=== PATIENT | male | born 1970 | race Caucasian/White ===

== ENCOUNTER 2017-01-10 21:49 | Emergency (ER) | payer MEDICARE, OTHER ==
--- NOTE | 2017-01-10 22:17 | ED ---
General Adult HPI - General Chief complaint: Extremity Injury, Upper Stated complaint: Rib injury Time Seen by Provider: 01/10/17 22:08 Source: patient, RN notes reviewed Mode of arrival: ambulatory Limitations: no limitations - History of Present Illness Initial comments: Patient is a 46-year-old male who presents emergency room today with chief complaint of an injury to the left rib that occurred earlier tonight. Patient does admit that he was leaning over the couch trying to pick something up when he felt a grinding sensation to the left lateral anterior rib. States does have some pain locally to this area now it's worse with certain movements. He denies any other complaints or symptoms. Patient denies any recent fever, chills , shortness of breath, chest pain, back pain, abdominal pain, nausea or vomiting , numbness or tingling, dysuria or hematuria, constipation or diarrhea, headaches or visual changes, or any other complaints. - Related Data Home Medications Medication Instructions Recorded Confirmed Fenofibrate Nanocrystallized 145 mg PO HS 06/06/14 01/10/17 [Fenofibrate] Lisinopril [Zestril] 10 mg PO QAM 06/06/14 01/10/17 Omeprazole [PriLOSEC] 20 mg PO AC-BID 06/06/14 01/10/17 Pramipexole [Mirapex] 0.5 mg PO HS 06/06/14 01/10/17 Zolpidem Tartrate [Ambien] 10 mg PO HS 06/06/14 01/10/17 Insulin Glargine [Lantus] 110 unit SQ HS 12/17/14 01/10/17 risperiDONE [risperiDONE] 6 mg PO HS 12/17/14 01/10/17 INSULIN LISPRO (HumaLOG) [HumaLOG] See Protocol SQ AC-TID 08/16/15 01/10/17 Albuterol Inhaler [Ventolin Hfa 2 puff INHALATION RT-QID PRN 01/10/17 01/10/17 Inhaler] Divalproex Sodium [Depakote] 500 mg PO TID 01/10/17 01/10/17 Fluticasone Nasal [place] [Flonase 1 spray EA NOSTRIL DAILY PRN 01/10/17 01/10/17 Nasal [place]] Oxybutynin Chloride [Ditropan] 5 mg PO BID 01/10/17 01/10/17 traMADol HCL [Ultram] 50 mg PO Q6HR PRN 01/10/17 01/10/17 Previous Rx's Medication Instructions Recorded Ibuprofen [Motrin] 600 mg PO Q6HR PRN #20 day 01/10/17 Allergies Allergy/AdvReac Type Severity Reaction Status Date / Time Penicillins Allergy Unknown Verified 01/10/17 22:57 Childhood clozapine [From Clozaril] AdvReac Severe Aggression Verified 01/10/17 22:57 Review of Systems ROS Statement: Those systems with pertinent positive or pertinent negative responses have been documented in the HPI. ROS Other: All systems not noted in ROS Statement are negative. Past Medical History Past Medical History: Asthma, Diabetes Mellitus, Hypertension, Osteoarthritis ( OA), Seizure Disorder, Sleep Apnea/CPAP/BIPAP Additional Past Medical History / Comment(s): LAST SEIZURE 28 YRS AGO. chronic back pain. DOES NOT USE CPAP. SPINAL STENOSIS History of Any Multi-Drug Resistant Organisms: None Reported Past Surgical History: Cholecystectomy, Heart Catheterization, Tonsillectomy Additional Past Surgical History / Comment(s): PAIN PROCEDURES. Past Anesthesia/Blood Transfusion Reactions: No Reported Reaction Past Psychological History: ADD/ADHD, Schizophrenia Additional Psychological History / Comment(s): Pt lives with a roomate. He states he is independent. Smoking Status: Current every day smoker Past Alcohol Use History: None Reported Additional Past Alcohol Use History / Comment(s): Pt states he started smoking at age 28 and smokes a pack a day. Past Drug Use History: None Reported - Past Family History Father Family Medical History: Unable to Obtain Additional Family Medical History / Comment(s): Father left home when pt was 5 yrs old. Mother Family Medical History: Myocardial Infarction ([place]) Additional Family Medical History / Comment(s): Mother at age 55yrs of [place]. General Exam - General Exam Comments Initial Comments: General: The patient is awake and alert, in no distress, and does not appear acutely ill. Eye: Pupils are equal, round and reactive to light, extra-ocular movements are intact. No nystagmus. There is normal conjunctiva bilaterally. No signs of icterus. Ears, nose, mouth and throat: There are moist mucous membranes and no oral lesions. Neck: The neck is supple, there is no tenderness or JVD. Cardiovascular: There is a regular rate and rhythm. No murmur, rub or gallop is appreciated. Respiratory: Lungs are clear to auscultation, respirations are non-labored, breath sounds are equal. No wheezes, stridor, rales, or rhonchi. Musculoskeletal: Normal ROM. patient does have tenderness to the left anterior lateral lower ribs. No sign of deformity. Strength 5/5. Sensation intact. Pulses equal bilaterally 2+. Neurological: A&O x 3. CN II-XII intact, There are no obvious motor or sensory deficits. Coordination appears grossly intact. Speech is normal. Skin: Skin is warm and dry and no rashes or lesions are noted. Psychiatric: Cooperative, appropriate mood & affect, normal judgment. Limitations: no limitations Course Vital Signs 01/10/17 22:00 Temperature 98 F Pulse Rate 78 Respiratory 18 Rate Blood Pressure 159/75 O2 Sat by Pulse 98 Oximetry Medical Decision Making - Medical Decision Making X-rays reviewed and are negative for any abnormality. Results were discussed with patient. He'll be started on anti-inflammatories for pain. Disposition Clinical Impression: Muscle strain Disposition: HOME SELF-CARE Condition: Good Instructions: Muscle Strain (ED) Additional Instructions: Please use medication as discussed. Please follow-up with family doctor in the next 2 days of symptoms have not improved. Please return to emergency room if the symptoms increase or worsen or for any other concerns. Prescriptions: Ibuprofen [Motrin] 600 mg PO Q6HR PRN #20 day PRN Reason: Pain Referrals: Brandon Mcpherson MD [Primary Care Provider] - 1-2 days Time of Disposition: 23:22
--- NOTE | 2017-01-10 22:50 | XR ---
EXAM: XR Chest, 2 Views CLINICAL HISTORY: Reason: Left side rib pain TECHNIQUE: Frontal and lateral views of the chest. COMPARISON: 12/17/14 FINDINGS: Cardiac and mediastinal silhouette within normal limits. No pneumothorax, edema, consolidation, pleural effusion or other acute cardiopulmonary process. IMPRESSION: No acute cardiopulmonary findings.
[2017-01-10] MEDS ORDERED: IBUPROFEN 600 MG STARTER PACK 4 TAB BTL PO STA (23:21)
[2017-01-10 23:47] VITALS: BP 148/68; PULSE 68; RESP 16; TEMP 97.8
== END 2017-01-10 23:40 | disposition home or self-care (01) ==
LOC: EC 21:49
DX: S29.011A Strain of muscle and tendon of front wall of thorax, initial encounter (principal); I10 Essential (primary) hypertension; E11.9 Type 2 diabetes mellitus without complications; F20.9 Schizophrenia, unspecified; G40.909 Epilepsy, unspecified, not intractable, without status epilepticus; F17.200 Nicotine dependence, unspecified, uncomplicated; Z79.4 Long term (current) use of insulin; Z79.899 Other long term (current) drug therapy; Z88.0 Allergy status to penicillin; Z88.8 Allergy status to other drugs, medicaments and biological substances; Z86.69 Personal history of other diseases of the nervous system and sense organs; X50.1XXA Overexertion from prolonged static or awkward postures, initial encounter; Y93.89 Activity, other specified
CPT/HCPCS: 71020; 99283

== ENCOUNTER 2017-01-20 22:46 | Emergency (ER) | payer MEDICARE, OTHER ==
[2017-01-20 22:52] VITALS: BP 160/77; PULSE 88; TEMP 100.2
[2017-01-20 23:07] VITALS: RESP 18
--- NOTE | 2017-01-20 23:11 | ED ---
General Adult HPI - General Chief complaint: Shortness of Breath Stated complaint: SOB Time Seen by Provider: 01/20/17 22:58 Source: patient, RN notes reviewed Mode of arrival: ambulatory Limitations: no limitations - History of Present Illness Initial comments: 46-year-old male presents emergency Department chief complaint of left rib pain. Patient states that 10 days ago he was leaning over his couch to grab a large sugar off the ground in which he injured his rib. Patient states he was seen in emergency from had a chest x-ray which did not show any acute abnormality. He states he continues to have pain and states it's worse when he takes a deep inspiration. Patient states that it's like cough now felt that he had a fever at home. Patient states cough is nonproductive. Patient does get occasional shortness of breath is not exertional. Denies any sinus congestion, sore throat, abdominal pain including nausea, vomiting, diarrhea. Patient states he is not taking any for the pain at this time. He does admit to taking shallow breaths because of the pain. - Related Data Home Medications Medication Instructions Recorded Confirmed Fenofibrate Nanocrystallized 145 mg PO HS 06/06/14 01/20/17 [Fenofibrate] Lisinopril [Zestril] 10 mg PO QAM 06/06/14 01/20/17 Omeprazole [PriLOSEC] 20 mg PO AC-BID 06/06/14 01/20/17 Pramipexole [Mirapex] 0.5 mg PO HS 06/06/14 01/20/17 Zolpidem Tartrate [Ambien] 10 mg PO HS 06/06/14 01/20/17 Insulin Glargine [Lantus] 110 unit SQ HS 12/17/14 01/20/17 risperiDONE [risperiDONE] 6 mg PO HS 12/17/14 01/20/17 INSULIN LISPRO (HumaLOG) [HumaLOG] See Protocol SQ AC-TID 08/16/15 01/20/17 Albuterol Inhaler [Ventolin Hfa 2 puff INHALATION RT-QID PRN 01/10/17 01/20/17 Inhaler] Divalproex Sodium [Depakote] 500 mg PO TID 01/10/17 01/20/17 Fluticasone Nasal [place] [Flonase 1 spray EA NOSTRIL DAILY PRN 01/10/17 01/20/17 Nasal [place]] Oxybutynin Chloride [Ditropan] 5 mg PO BID 01/10/17 01/20/17 traMADol HCL [Ultram] 50 mg PO Q6HR PRN 01/10/17 01/20/17 Previous Rx's Medication Instructions Recorded Ibuprofen [Motrin] 600 mg PO Q6HR PRN #20 day 01/10/17 Azithromycin [Zithromax Z-pack] 0 mg PO DIRECTED #1 pack 01/20/17 Allergies Allergy/AdvReac Type Severity Reaction Status Date / Time Penicillins Allergy Unknown Verified 01/20/17 22:52 Childhood clozapine [From Clozaril] AdvReac Severe Aggression Verified 01/20/17 22:52 Review of Systems ROS Statement: Those systems with pertinent positive or pertinent negative responses have been documented in the HPI. ROS Other: All systems not noted in ROS Statement are negative. Past Medical History Past Medical History: Asthma, Diabetes Mellitus, Hypertension, Osteoarthritis ( OA), Seizure Disorder, Sleep Apnea/CPAP/BIPAP Additional Past Medical History / Comment(s): LAST SEIZURE 28 YRS AGO. chronic back pain. DOES NOT USE CPAP. SPINAL STENOSIS History of Any Multi-Drug Resistant Organisms: None Reported Past Surgical History: Cholecystectomy, Heart Catheterization, Tonsillectomy Additional Past Surgical History / Comment(s): PAIN PROCEDURES. Past Anesthesia/Blood Transfusion Reactions: No Reported Reaction Past Psychological History: ADD/ADHD, Schizophrenia Additional Psychological History / Comment(s): Pt lives with a roomate. He states he is independent. Smoking Status: Current every day smoker Past Alcohol Use History: None Reported Additional Past Alcohol Use History / Comment(s): Pt states he started smoking at age 28 and smokes a pack a day. Past Drug Use History: None Reported - Past Family History Father Family Medical History: Unable to Obtain Additional Family Medical History / Comment(s): Father left home when pt was 5 yrs old. Mother Family Medical History: Myocardial Infarction ([place]) Additional Family Medical History / Comment(s): Mother at age 55yrs of [place]. General Exam Limitations: no limitations General appearance: alert, in no apparent distress Head exam: Present: atraumatic, normocephalic, normal inspection Eye exam: Present: normal appearance, PERRL, EOMI. Absent: scleral icterus, conjunctival injection, periorbital swelling ENT exam: Present: normal exam, mucous membranes moist Neck exam: Present: normal inspection. Absent: tenderness, meningismus, lymphadenopathy Respiratory exam: Present: normal lung sounds bilaterally, chest wall tenderness (Moderate left anterior to lateral rib tenderness). Absent: respiratory distress, wheezes, rales, rhonchi, stridor Cardiovascular Exam: Present: regular rate, normal rhythm, normal heart sounds. Absent: systolic murmur, diastolic murmur, rubs, gallop, clicks GI/Abdominal exam: Present: soft, normal bowel sounds. Absent: distended, tenderness, guarding, rebound, rigid Back exam: Absent: CVA tenderness (R), CVA tenderness (L) Neurological exam: Present: alert, oriented X3, CN II-XII intact Course Vital Signs 01/20/17 01/20/17 22:48 23:05 Temperature 100.2 F H Pulse Rate 88 Respiratory 16 18 Rate Blood Pressure 160/77 O2 Sat by Pulse 96 Oximetry Medical Decision Making - Medical Decision Making 46-year-old male presented for left rib pain, cough congestion. Patient's x- ray chest with rib series does not show any acute fractures. Patient does have some upper respiratory symptoms consistent with bronchitis. Patient has a temperature 100.2 here. Patient be discharged with follow-up with primary care physician return parameters were discussed. - Radiology Data Radiology results: report reviewed, image reviewed Chest x-ray is, rib series no acute fracture noted Disposition Clinical Impression: Costochondritis, Rib pain on left side, Acute bronchitis Disposition: HOME SELF-CARE Condition: Stable Instructions: Acute Bronchitis (ED), Costochondritis (ED) Additional Instructions: Please return to the Emergency Department if symptoms worsen or any other concerns. Prescriptions: Azithromycin [Zithromax Z-pack] 0 mg PO DIRECTED #1 pack Referrals: Brandon Mcpherson MD [Primary Care Provider] - 1-2 days
--- NOTE | 2017-01-20 23:28 | XR ---
EXAM: XR Left Ribs and AP Chest, 5 Views CLINICAL HISTORY: Pain. Left-sided rib pain after leaning over couch. TECHNIQUE: Frontal and oblique views of the left ribs and frontal view of the chest. A total of 5 images were obtained. COMPARISON: CXR dated 01/10/2017 FINDINGS: Lungs: No focal consolidation. No evidence of pulmonary edema. Pleural space: No pleural effusion. No pneumothorax. Heart: Unremarkable. No cardiomegaly. Mediastinum: Unremarkable. Bones/joints: No acute fracture. Specifically, no evidence of left- sided rib fracture. IMPRESSION: No radiographic evidence of left rib fracture or other acute chest abnormality.
== END 2017-01-20 23:45 | disposition home or self-care (01) ==
LOC: EC 22:46
DX: M94.0 Chondrocostal junction syndrome [Tietze] (principal); J20.9 Acute bronchitis, unspecified; J45.909 Unspecified asthma, uncomplicated; E11.9 Type 2 diabetes mellitus without complications; I10 Essential (primary) hypertension; M19.90 Unspecified osteoarthritis, unspecified site; G40.909 Epilepsy, unspecified, not intractable, without status epilepticus; F20.9 Schizophrenia, unspecified; F90.9 Attention-deficit hyperactivity disorder, unspecified type; F17.200 Nicotine dependence, unspecified, uncomplicated; Z82.49 Family history of ischemic heart disease and other diseases of the circulatory system; Z79.51 Long term (current) use of inhaled steroids; Z79.4 Long term (current) use of insulin; Z79.899 Other long term (current) drug therapy; Z88.0 Allergy status to penicillin; Z88.8 Allergy status to other drugs, medicaments and biological substances
CPT/HCPCS: 99284

== ENCOUNTER 2017-02-05 04:44 | Emergency (ER) | payer MEDICARE, OTHER ==
--- NOTE | 2017-02-05 05:31 | ED ---
General Adult HPI - General Chief complaint: Back Pain/Injury Stated complaint: Abdominal Pain Time Seen by Provider: 02/05/17 05:04 Source: patient Mode of arrival: ambulatory Limitations: no limitations - History of Present Illness Initial comments: This patient is a 46-year-old man who presents to be reevaluated for pain to his left ribs. Came on oxygen only a month ago. 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 The patient states that although things haven't improved she still continues have pain when he presses on that side or if he coughs. He states that he did come here and was told the x-rays were initially negative. Patient has not had fevers or chills. No cough or hemoptysis. No dyspnea. No leg pain or swelling. Onset/Timin -: month(s) Location: chest Radiation: non-radiation Severity scale (1-10): 5 Quality: aching Consistency: constant Improves with: none Worsens with: movement Associated Symptoms: denies other symptoms Treatments Prior to Arrival: none - Related Data Home Medications Medication Instructions Recorded Confirmed Fenofibrate Nanocrystallized 145 mg PO HS 06/06/14 02/05/17 [Fenofibrate] Lisinopril [Zestril] 10 mg PO QAM 06/06/14 02/05/17 Omeprazole [PriLOSEC] 20 mg PO AC-BID 06/06/14 02/05/17 Pramipexole [Mirapex] 0.5 mg PO HS 06/06/14 02/05/17 Zolpidem Tartrate [Ambien] 10 mg PO HS 06/06/14 02/05/17 Insulin Glargine [Lantus] 110 unit SQ HS 12/17/14 02/05/17 risperiDONE [risperiDONE] 6 mg PO HS 12/17/14 02/05/17 INSULIN LISPRO (HumaLOG) [HumaLOG] See Protocol SQ AC-TID 08/16/15 02/05/17 Albuterol Inhaler [Ventolin Hfa 2 puff INHALATION RT-QID PRN 01/10/17 02/05/17 Inhaler] Divalproex Sodium [Depakote] 500 mg PO TID 01/10/17 02/05/17 Fluticasone Nasal [place] [Flonase 1 spray EA NOSTRIL DAILY PRN 01/10/17 02/05/17 Nasal [place]] Oxybutynin Chloride [Ditropan] 5 mg PO BID 01/10/17 02/05/17 traMADol HCL [Ultram] 50 mg PO Q6HR PRN 01/10/17 02/05/17 Previous Rx's Medication Instructions Recorded Ibuprofen [Motrin] 600 mg PO Q6HR PRN #20 day 01/10/17 Azithromycin [Zithromax Z-pack] 0 mg PO DIRECTED #1 pack 01/20/17 traMADol HCl [Ultram] 50 mg PO Q6H PRN #20 tab 02/05/17 Allergies Allergy/AdvReac Type Severity Reaction Status Date / Time Penicillins Allergy Unknown Verified 02/05/17 04:54 Childhood clozapine [From Clozaril] AdvReac Severe Aggression Verified 02/05/17 04:54 Review of Systems ROS Statement: Those systems with pertinent positive or pertinent negative responses have been documented in the HPI. ROS Other: All systems not noted in ROS Statement are negative. Constitutional: Denies: fever, chills Respiratory: Denies: cough, dyspnea, wheezes, hemoptysis Cardiovascular: Reports: as per HPI, chest pain. Denies: palpitations, edema Gastrointestinal: Denies: abdominal pain, nausea, vomiting Genitourinary: Denies: dysuria, hematuria Musculoskeletal: Denies: back pain Skin: Denies: rash Past Medical History Past Medical History: Asthma, Diabetes Mellitus, Hypertension, Osteoarthritis ( OA), Seizure Disorder, Sleep Apnea/CPAP/BIPAP Additional Past Medical History / Comment(s): LAST SEIZURE 28 YRS AGO. chronic back pain. DOES NOT USE CPAP. SPINAL STENOSIS History of Any Multi-Drug Resistant Organisms: None Reported Past Surgical History: Cholecystectomy, Heart Catheterization, Tonsillectomy Additional Past Surgical History / Comment(s): PAIN PROCEDURES. Past Anesthesia/Blood Transfusion Reactions: No Reported Reaction Past Psychological History: ADD/ADHD, Schizophrenia Additional Psychological History / Comment(s): Pt lives with a roomate. He states he is independent. Smoking Status: Current every day smoker Past Alcohol Use History: None Reported Additional Past Alcohol Use History / Comment(s): Pt states he started smoking at age 28 and smokes a pack a day. Past Drug Use History: None Reported - Past Family History Father Family Medical History: Unable to Obtain Additional Family Medical History / Comment(s): Father left home when pt was 5 yrs old. Mother Family Medical History: Myocardial Infarction ([place]) Additional Family Medical History / Comment(s): Mother at age 55yrs of [place]. General Exam Limitations: no limitations General appearance: alert, in no apparent distress, obese Head exam: Present: atraumatic, normocephalic Respiratory exam: Present: normal lung sounds bilaterally, chest wall tenderness. Absent: respiratory distress, wheezes, rales, rhonchi, stridor Cardiovascular Exam: Present: regular rate, normal rhythm, normal heart sounds. Absent: systolic murmur, diastolic murmur, rubs, gallop GI/Abdominal exam: Present: soft. Absent: distended, tenderness, guarding, rebound, mass Extremities exam: Present: normal inspection, normal capillary refill. Absent: pedal edema, calf tenderness Back exam: Present: normal inspection. Absent: CVA tenderness (R), CVA tenderness (L), paraspinal tenderness, vertebral tenderness Skin exam: Present: warm, dry, intact, normal color. Absent: rash Course Vital Signs 02/05/17 04:50 Temperature 97.6 F Pulse Rate 98 Respiratory 20 Rate Blood Pressure 132/71 O2 Sat by Pulse 97 Oximetry Disposition Clinical Impression: Chest wall pain Disposition: HOME SELF-CARE Condition: Fair Instructions: Chest Wall Pain (ED) Prescriptions: traMADol HCl [Ultram] 50 mg PO Q6H PRN #20 tab PRN Reason: Pain Referrals: Brandon Mcpherson MD [Primary Care Provider] - 1-2 days
--- NOTE | 2017-02-05 06:02 | XR ---
EXAM: XR Left Ribs and AP Chest, 3 or More Views CLINICAL HISTORY: Reason: Pain TECHNIQUE: Frontal and oblique views of the left ribs and frontal view of the chest. COMPARISON: Chest and left rib series 01/20/2017 FINDINGS: Lungs: Lungs are clear. Pleural space: No evidence of pleural effusion or pneumothorax. Heart: PA chest: Heart size and mediastinal structures are within normal limits. Mediastinum: Unremarkable. Bones/joints: Left rib series: No definite rib fracture identified. No osteolytic, osteoblastic or bony destructive rib lesions identified. IMPRESSION: No evidence of left rib fracture. No evidence of acute cardiopulmonary disease.
[2017-02-05 06:34] VITALS: BP 127/62; PULSE 83; RESP 18; TEMP 97.9
== END 2017-02-05 06:34 | disposition home or self-care (01) ==
LOC: EC 04:44
DX: R07.89 Other chest pain (principal); E11.9 Type 2 diabetes mellitus without complications; I10 Essential (primary) hypertension; F17.200 Nicotine dependence, unspecified, uncomplicated; Z90.49 Acquired absence of other specified parts of digestive tract; Z88.0 Allergy status to penicillin; Z88.8 Allergy status to other drugs, medicaments and biological substances; Z79.4 Long term (current) use of insulin; Z79.899 Other long term (current) drug therapy
CPT/HCPCS: 99284

== ENCOUNTER → 2017-04-05 | Outpatient (CLI) | payer MEDICARE, OTHER ==
--- NOTE | 2017-04-06 06:43 | XR ---
EXAMINATION TYPE: XR abdomen 1V , 3 VIEWS DATE OF EXAM ORDERED: 04/05/2017 HISTORY: R19.7 diarrhea. COMPARISON: Previous study dated 06/26/2015. FINDINGS: There has been a previous cholecystectomy. The abdominal gas pattern is normal. There is no evidence of obstruction or free air. No unusual calc ifications are seen. IMPRESSION: NO ACUTE INTRA-ABDOMINAL ABNORMALITY.
== END | disposition home or self-care (01) ==
LOC: RADXRMAIN 16:06
PROVIDERS: ATTEND Physician Assistant
DX: R19.7 Diarrhea, unspecified (principal)
CPT/HCPCS: 74000

== ENCOUNTER 2017-04-21 10:52 | Emergency (ER) | payer MEDICARE, OTHER ==
[2017-04-21 11:00] VITALS: BP 166/77; PULSE 95; RESP 18; TEMP 98.3
[2017-04-21] MEDS ORDERED: PROPARACAINE 0.5% OPHTH DROPS 15 ML BTL RIGHT EYE STA (11:05)
[2017-04-21] MEDS ORDERED: TOBRAMYCIN 0.3% OPHTH DROPS 5 ML BTL RIGHT EYE STA (11:12)
--- NOTE | 2017-04-21 11:16 | ED ---
General Adult HPI - General Chief complaint: Eye Problems Stated complaint: FB IN RT EYE Time Seen by Provider: 04/21/17 11:02 Source: patient, RN notes reviewed Mode of arrival: ambulatory Limitations: no limitations - History of Present Illness Initial comments: Patient 46-year-old male who presents emergency room today with a chief complaint of foreign body sensation to the right eye. He states he woke up this morning with this feeling. Denies any injury or trauma. Denies any other complaints. States his vision has not changed. Patient denies any recent fever , chills, shortness of breath, chest pain, back pain, abdominal pain, nausea or vomiting, numbness or tingling, dysuria or hematuria, constipation or diarrhea, headaches or visual changes, or any other complaints. - Related Data Home Medications Medication Instructions Recorded Confirmed Fenofibrate Nanocrystallized 145 mg PO HS 06/06/14 02/05/17 [Fenofibrate] Lisinopril [Zestril] 10 mg PO QAM 06/06/14 02/05/17 Omeprazole [PriLOSEC] 20 mg PO AC-BID 06/06/14 02/05/17 Pramipexole [Mirapex] 0.5 mg PO HS 06/06/14 02/05/17 Zolpidem Tartrate [Ambien] 10 mg PO HS 06/06/14 02/05/17 Insulin Glargine [Lantus] 110 unit SQ HS 12/17/14 02/05/17 risperiDONE [risperiDONE] 6 mg PO HS 12/17/14 02/05/17 INSULIN LISPRO (HumaLOG) [HumaLOG] See Protocol SQ AC-TID 08/16/15 02/05/17 Albuterol Inhaler [Ventolin Hfa 2 puff INHALATION RT-QID PRN 01/10/17 02/05/17 Inhaler] Divalproex Sodium [Depakote] 500 mg PO TID 01/10/17 02/05/17 Fluticasone Nasal [place] [Flonase 1 spray EA NOSTRIL DAILY PRN 01/10/17 02/05/17 Nasal [place]] Oxybutynin Chloride [Ditropan] 5 mg PO BID 01/10/17 02/05/17 traMADol HCL [Ultram] 50 mg PO Q6HR PRN 01/10/17 02/05/17 Previous Rx's Medication Instructions Recorded Ibuprofen [Motrin] 600 mg PO Q6HR PRN #20 day 01/10/17 Azithromycin [Zithromax Z-pack] 0 mg PO DIRECTED #1 pack 01/20/17 traMADol HCl [Ultram] 50 mg PO Q6H PRN #20 tab 02/05/17 Tobramycin 0.3% Ophth Soln [Tobrex 1 - 2 drop RIGHT EYE QID 7 Days 04/21/17 0.3% Ophth Soln] Allergies Allergy/AdvReac Type Severity Reaction Status Date / Time Penicillins Allergy Unknown Verified 04/21/17 11:00 Childhood clozapine [From Clozaril] AdvReac Severe Aggression Verified 04/21/17 11:00 Review of Systems ROS Statement: Those systems with pertinent positive or pertinent negative responses have been documented in the HPI. ROS Other: All systems not noted in ROS Statement are negative. Past Medical History Past Medical History: Asthma, Diabetes Mellitus, Hypertension, Osteoarthritis ( OA), Seizure Disorder, Sleep Apnea/CPAP/BIPAP Additional Past Medical History / Comment(s): LAST SEIZURE 28 YRS AGO. chronic back pain. DOES NOT USE CPAP. SPINAL STENOSIS ddd History of Any Multi-Drug Resistant Organisms: None Reported Past Surgical History: Cholecystectomy, Heart Catheterization, Tonsillectomy Additional Past Surgical History / Comment(s): PAIN PROCEDURES. Past Anesthesia/Blood Transfusion Reactions: No Reported Reaction Past Psychological History: ADD/ADHD, Schizophrenia Smoking Status: Current every day smoker Past Alcohol Use History: None Reported, Occasional Past Drug Use History: Marijuana - Past Family History Father Family Medical History: Unable to Obtain Additional Family Medical History / Comment(s): Father left home when pt was 5 yrs old. Mother Family Medical History: Myocardial Infarction ([place]) Additional Family Medical History / Comment(s): Mother at age 55yrs of [place]. General Exam - General Exam Comments Initial Comments: General: The patient is awake and alert, in no distress, and does not appear acutely ill. Eye: Pupils are equal, round and reactive to light, extra-ocular movements are intact. No nystagmus. There is normal conjunctiva bilaterally. No signs of icterus. Ears, nose, mouth and throat: There are moist mucous membranes and no oral lesions. Neck: The neck is supple, there is no tenderness or JVD. Cardiovascular: There is a regular rate and rhythm. No murmur, rub or gallop is appreciated. Respiratory: Lungs are clear to auscultation, respirations are non-labored, breath sounds are equal. No wheezes, stridor, rales, or rhonchi. Musculoskeletal: Normal ROM, no tenderness. Strength 5/5. Sensation intact. Pulses equal bilaterally 2+. Neurological: A&O x 3. CN II-XII intact, There are no obvious motor or sensory deficits. Coordination appears grossly intact. Speech is normal. Skin: Skin is warm and dry and no rashes or lesions are noted. Psychiatric: Cooperative, appropriate mood & affect, normal judgment. Limitations: no limitations Course Vital Signs 04/21/17 10:57 Temperature 98.3 F Pulse Rate 95 Respiratory 18 Rate Blood Pressure 166/77 O2 Sat by Pulse 98 Oximetry Procedures - Procedures Initial comment: Patient's right eye was anesthetized locally with proparacaine. This did relieve his symptoms. Was then stained with fluorescein checked with Wood's lamp which reveals a small corneal abrasion going from the 4:00 to 7 o'clock position. Medical Decision Making - Medical Decision Making Patient will be started on antibiotic drops here in the emergency room. He'll also be given a prescription for the same. He is advised follow-up with his air intelligence specialist in 2 days of symptoms have not. Advised return for any other concerns. Disposition Clinical Impression: Corneal abrasion Disposition: HOME SELF-CARE Condition: Good Instructions: Corneal Abrasion (ED) Additional Instructions: Please use antibiotic drops as prescribed. Please follow-up with your eye doctor in 2 days of symptoms have not completely resolved. Please return to emergency room if the symptoms increase or worsen or for any other concerns. Prescriptions: Tobramycin 0.3% Ophth Soln [Tobrex 0.3% Ophth Soln] 1 - 2 drop RIGHT EYE QID 7 Days Referrals: Brandon Mcpherson MD [Primary Care Provider] - 1-2 days Time of Disposition: 11:14
== END 2017-04-21 11:26 | disposition home or self-care (01) ==
LOC: EC 10:52
DX: S05.01XA Injury of conjunctiva and corneal abrasion without foreign body, right eye, initial encounter (principal); I10 Essential (primary) hypertension; E11.9 Type 2 diabetes mellitus without complications; F90.9 Attention-deficit hyperactivity disorder, unspecified type; F20.9 Schizophrenia, unspecified; G40.909 Epilepsy, unspecified, not intractable, without status epilepticus; F17.200 Nicotine dependence, unspecified, uncomplicated; Z79.4 Long term (current) use of insulin; Z79.899 Other long term (current) drug therapy; Z88.0 Allergy status to penicillin; Z88.8 Allergy status to other drugs, medicaments and biological substances; X58.XXXA Exposure to other specified factors, initial encounter
CPT/HCPCS: 99283

== ENCOUNTER 2017-08-29 13:28 | Emergency (ER) | payer MEDICARE, OTHER ==
[2017-08-29 13:38] VITALS: TEMP 97.4
[2017-08-29 14:37] LABS: Appearance,Urine Clear (Clear); Bilirubin,Urine Negative (Negative); Glucose,Urine (UA) 4+ (Negative); Ketones,Urine Negative (Negative); Leukocyte Esterase,Urine Negative (Negative); Mucus,Urine Rare /hpf; Nitrite,Urine Negative (Negative); PH, Urine 5.5 (5.0-8.0); Particle Count 2496; Protein,Urine 1+ (Negative); RBC,Urine 18 /hpf (0-5); Specific Gravity,Urine 1.027 (1.001-1.035); UA Billing (MACRO vs. MICRO) MICRO; Urobilinogen,Urine <2.0 mg/dL (<2.0); WBC,Urine 1 /hpf (0-5)
--- NOTE | 2017-08-29 16:08 | CT ---
EXAMINATION TYPE: CT renal stones wo con DATE OF EXAM: 08/29/2017 HISTORY: Painful urination, hematuria and generalized abdominal pain. CT DLP: 2005.90 mGycm. Automated Exposure Control for Dose Reduction was Utilized. TECHNIQUE: CT scan of the abdomen and pelvis is performed without oral or IV contrast. COMPARISON: Prior CT 06/26/2015 FINDINGS: Within the limitations of a non-contrast study, the following observations are made. There is no pericardial effusion. Suspect there may be coronary artery calcifications. LUNG BASES: Minimal dependent atelectatic changes are present at the left lung base. LIVER/GB: Liver shows low attenuation possibly due to steatosis, the liver is enlarged. Patient is po st cholecystectomy. PANCREAS: No significant abnormality is seen. SPLEEN: The spleen is enlarged. ADRENALS: No significant abnormality is seen. KIDNEYS: No significant abnormality is seen. BOWEL: No significant abnormality is seen. The appendix is normal. GENITAL ORGANS: Calcifications are present within the prostate. LYMPH NODES: No greater than 1cm abdo trey or pelvic lymph nodes are appreciated. OSSEOUS STRUCTURES: Bilateral spondylolysis is again noted at L4-5, there is anterolisthesis grade 1, associated degenerative disc changes are present with vacuum phenomenon as on prior exam. There are associated facet arthropathy changes. OTHER: Increased attenuation within the subcutaneous fat at the level of the skin in the lower abdome n may be due to injections. IMPRESSION: No renal stones or hydronephrosis is seen bilaterally. Hepatosplenomegaly, additional fin dings above. Noncontrast exam. Postop changes.
--- NOTE | 2017-08-29 16:14 | ED ---
Male Urogenital HPI - General Chief complaint: Urogenital Stated complaint: abdominal pain Time Seen by Provider: 08/29/17 13:39 Source: patient Mode of arrival: ambulatory Limitations: no limitations - History of Present Illness Initial comments: 46-year-old male presented for evaluation of dysuria. He states that his symptoms have been present for the last week he was seen by his primary care physician who arranged for him to have an outpatient ultrasound of the right upper quadrant however he states that his pain has been intermittent and present in the right upper quadrant in the suprapubic area. He states that he has previous urinary tract infections which were treated with antibiotics successfully. He denies any sexual contact and states that he would not like to be tested for STDs. He denies any other symptoms. - Related Data Home Medications Medication Instructions Recorded Confirmed Fenofibrate Nanocrystallized 145 mg PO HS 06/06/14 08/29/17 [Fenofibrate] Lisinopril [Zestril] 10 mg PO QAM 06/06/14 08/29/17 Omeprazole [PriLOSEC] 20 mg PO AC-BID 06/06/14 08/29/17 Pramipexole [Mirapex] 0.5 mg PO HS 06/06/14 08/29/17 Zolpidem Tartrate [Ambien] 10 mg PO HS 06/06/14 08/29/17 Insulin Glargine [Lantus] 110 unit SQ HS 12/17/14 08/29/17 risperiDONE [risperiDONE] 3 mg PO BID 12/17/14 08/29/17 INSULIN LISPRO (HumaLOG) [HumaLOG] See Protocol SQ AC-TID 08/16/15 08/29/17 Divalproex Sodium [Depakote] 500 mg PO TID 01/10/17 08/29/17 Cetirizine HCl [Zyrtec] 10 mg PO DAILY 08/29/17 08/29/17 Previous Rx's Medication Instructions Recorded traMADol HCl [Ultram] 50 mg PO Q6H PRN #20 tab 02/05/17 Allergies Allergy/AdvReac Type Severity Reaction Status Date / Time Penicillins Allergy Unknown Verified 08/29/17 13:52 Childhood clozapine [From Clozaril] AdvReac Severe Aggression Verified 08/29/17 13:52 Review of Systems ROS Statement: Those systems with pertinent positive or pertinent negative responses have been documented in the HPI. ROS Other: All systems not noted in ROS Statement are negative. Constitutional: Denies: fever, chills Eyes: Denies: eye pain, eye discharge ENT: Denies: ear pain, throat pain Respiratory: Denies: cough, dyspnea Cardiovascular: Denies: chest pain, palpitations Endocrine: Denies: fatigue, polydipsia, polyuria Gastrointestinal: Reports: abdominal pain (Suprapubic). Denies: nausea, vomiting, diarrhea, constipation Genitourinary: Reports: dysuria. Denies: urgency, frequency, hematuria, discharge Musculoskeletal: Denies: back pain, arthralgia, myalgia Skin: Denies: rash, lesions Neurological: Denies: headache, weakness Psychiatric: Denies: anxiety, depression Hematological/Lymphatic: Denies: easy bleeding, easy bruising Past Medical History Past Medical History: Asthma, Diabetes Mellitus, GERD/Reflux, Hypertension, Osteoarthritis (OA), Seizure Disorder, Skin Disorder, Sleep Apnea/CPAP/BIPAP Additional Past Medical History / Comment(s): LAST SEIZURE 28 YRS AGO. chronic back pain. DOES NOT USE CPAP. SPINAL STENOSIS, DDD IN BACK, SCOLIOSIS, IBS, poriasis, frequent urination History of Any Multi-Drug Resistant Organisms: None Reported Past Surgical History: Cholecystectomy, Heart Catheterization, Tonsillectomy Additional Past Surgical History / Comment(s): PAIN PROCEDURES. Past Anesthesia/Blood Transfusion Reactions: Motion Sickness Past Psychological History: ADD/ADHD, Schizophrenia Smoking Status: Current every day smoker Past Alcohol Use History: None Reported Past Drug Use History: None Reported - Past Family History Father Family Medical History: Unable to Obtain Additional Family Medical History / Comment(s): Father left home when pt was 5 yrs old. Mother Family Medical History: Myocardial Infarction ([place]) Additional Family Medical History / Comment(s): Mother at age 55yrs of [place]. General Exam Limitations: no limitations General appearance: alert, in no apparent distress Head exam: Present: atraumatic, normocephalic, normal inspection Eye exam: Present: normal appearance, PERRL, EOMI. Absent: scleral icterus, conjunctival injection, periorbital swelling ENT exam: Present: normal exam, mucous membranes moist Neck exam: Present: normal inspection. Absent: tenderness, meningismus, lymphadenopathy Respiratory exam: Present: normal lung sounds bilaterally. Absent: respiratory distress, wheezes, rales, rhonchi, stridor Cardiovascular Exam: Present: regular rate, normal rhythm, normal heart sounds. Absent: systolic murmur, diastolic murmur, rubs, gallop, clicks GI/Abdominal exam: Present: soft, tenderness, normal bowel sounds. Absent: distended, guarding, rebound, rigid Rectal exam: Present: deferred Extremities exam: Present: normal inspection, full ROM, normal capillary refill. Absent: tenderness, pedal edema, joint swelling, calf tenderness Back exam: Present: normal inspection Neurological exam: Present: alert, oriented X3, CN II-XII intact Psychiatric exam: Present: normal affect, normal mood Skin exam: Present: warm, dry, intact, normal color. Absent: rash Course Vital Signs 08/29/17 08/29/17 08/29/17 13:36 15:03 16:41 Temperature 97.4 F L Pulse Rate 79 75 67 Respiratory 18 18 16 Rate Blood Pressure 189/88 174/85 173/93 O2 Sat by Pulse 98 97 97 Oximetry Medical Decision Making - Medical Decision Making 46-year-old male with past medical history of urinary tract infections presenting for evaluation of dysuria. On physical examination he has mild superpubic abdominal tenderness without peritoneal signs of guarding, rigidity, or rebound. There is no right upper quadrant tenderness as noted in his HPI. The remainder of his physical exam is benign. The urinalysis was obtained and showed no infection however there was discussed hematuria. Given his right upper quadrant abdominal pain as well as the superpubic tenderness and hematuria concern for ureterolithiasis was considered and CT renal stone was ordered. CT renal showed showed no acute uropathy. The patient was reevaluated and had improvement in all his symptoms. He was informed of results and advised to keep his appointment for ultrasound. Further advised to return to this facility if his symptoms should worsen or persist. The patient acknowledged an understanding of all formation provided and agreed with this plan of care. - Lab Data Lab Results 08/29/17 Range/Units 13:40 Urine Color Yellow Urine Appearance Clear (Clear) Urine pH 5.5 (5.0-8.0) Ur Specific [place] 1.027 (1.001-1.035) Urine Protein 1+ H (Negative) Urine Glucose (UA) 4+ H (Negative) Urine Ketones Negative (Negative) Urine Blood Moderate H (Negative) Urine Nitrite Negative (Negative) Urine Bilirubin Negative (Negative) Urine Urobilinogen <2.0 (<2.0) mg/dL Ur Leukocyte Esterase Negative (Negative) Urine RBC 18 H (0-5) /hpf Urine WBC 1 (0-5) /hpf Urine Mucus Rare H (None) /hpf Disposition Clinical Impression: Dysuria Disposition: HOME SELF-CARE Condition: Stable Instructions: Urinary Tract Infection in Men (ED) Referrals: Brandon Mcpherson MD [Primary Care Provider] - 1-2 days Time of Disposition: 16:14
[2017-08-29 16:42] VITALS: BP 173/93; PULSE 67; RESP 16
== END 2017-08-29 16:38 | disposition home or self-care (01) ==
LOC: EC 13:28
DX: R30.0 Dysuria (principal); R10.31 Right lower quadrant pain; R10.11 Right upper quadrant pain; I10 Essential (primary) hypertension; K21.9 Gastro-esophageal reflux disease without esophagitis; E11.9 Type 2 diabetes mellitus without complications; G47.30 Sleep apnea, unspecified; F20.9 Schizophrenia, unspecified; G40.909 Epilepsy, unspecified, not intractable, without status epilepticus; F17.200 Nicotine dependence, unspecified, uncomplicated; Z79.4 Long term (current) use of insulin; Z79.899 Other long term (current) drug therapy; Z88.0 Allergy status to penicillin; Z88.8 Allergy status to other drugs, medicaments and biological substances; Z87.440 Personal history of urinary (tract) infections; Z90.49 Acquired absence of other specified parts of digestive tract
CPT/HCPCS: 74150; 81001; 99284

== ENCOUNTER → 2017-09-11 | Outpatient (CLI) | payer MEDICARE, OTHER ==
--- NOTE | 2017-09-11 08:47 | US ---
EXAMINATION TYPE: US abdomen complete DATE OF EXAM: 09/11/2017 COMPARISON: US & CT CLINICAL HISTORY: R31.9 Hematuria, R10.9 Abd Pain. Pt states lower ABD pain EXAM MEASUREMENTS: Liver Length: 21.1 cm CBD: 0.6 cm Spleen: 13.9 cm Right Kidney: 10.8 x 6.1 x 6.7 cm Left Kidney: 13.2 x 6.1 x 5.7 cm Large pt body habitus, heavy breathing, difficult exam Pancreas: Obscured by bowel gas Liver: Enlarged, heterogenous, difficult to penetrate Gallbladder: Surgically absent Evidence for sonographic Champion's sign: No CBD: wnl Spleen: Enlarged Right Kidney: wnl Left Kidney: wnl Upper IVC: wnl Abd Aorta: Proximal portion gassed out, mid and distal wnl The intrahepatic portion of the IVC and proximal abdominal aorta are within normal limits. Common bi le duct is unremarkable. The visualized portions of the pancreas are homogenous. The spleen is unre markable. Kidneys are symmetric and free of hydronephrosis. No renal lesions are seen. IMPRESSION: 1. Hepatomegaly with underlying hepatic fatty infiltration versus diffuse hepatocellular disease.
== END | disposition home or self-care (01) ==
LOC: RADUSWWP 07:58
PROVIDERS: ATTEND Family Medicine
DX: R16.0 Hepatomegaly, not elsewhere classified (principal); K76.0 Fatty (change of) liver, not elsewhere classified; R31.9 Hematuria, unspecified; Z88.0 Allergy status to penicillin; Z88.8 Allergy status to other drugs, medicaments and biological substances
CPT/HCPCS: 76700

== ENCOUNTER 2017-09-13 16:09 | Emergency (ER) | payer MEDICARE, OTHER ==
[2017-09-13 16:22] VITALS: RESP 18
--- NOTE | 2017-09-13 17:23 | ED ---
General Adult HPI - General Chief complaint: Abdominal Pain Stated complaint: Chemical Exposure Eyes/Abd Pain Time Seen by Provider: 09/13/17 16:33 Source: patient, family, RN notes reviewed, old records reviewed Mode of arrival: ambulatory Limitations: no limitations - History of Present Illness Initial comments: Chief complaint history of present illness; this is a 46-year-old male with multiple complaints. His first complaint is that he actually touched his eye with [place]-Jany yesterday at the cleaning a fan. He rinsed it. It feels better now. Also complains of one year of left ear fullness. Is been treated with medications and nasal drops without significant resolution. He was again advised talk to his family physician for ENT referral as that is needed. The patient also reports she's had abdominal pain and complaints he reports he states an within one day ago from constipation to diarrhea to normal. He's been on Linz asked for a long period of time. The patient also states that he occasionally has discomfort that radiates down his leg with a history of sciatica. Patient reports that the leg numbness started 3 minutes prior to coming emergency room while laying on the bed. he has a history of schizophrenia. - Related Data Home Medications Medication Instructions Recorded Confirmed Lisinopril [Zestril] 10 mg PO QAM 06/06/14 09/13/17 Omeprazole [PriLOSEC] 20 mg PO AC-BID 06/06/14 09/13/17 Zolpidem Tartrate [Ambien] 10 mg PO HS 06/06/14 09/13/17 Insulin Glargine [Lantus] 100 unit SQ HS 12/17/14 09/13/17 INSULIN LISPRO (HumaLOG) [HumaLOG] See Protocol SQ AC-TID 08/16/15 09/13/17 Divalproex Sodium [Depakote] 500 mg PO TID 01/10/17 09/13/17 traMADol HCl [Ultram] 50 mg PO ONCE PRN 09/13/17 09/13/17 Previous Rx's Medication Instructions Recorded Azithromycin [Zithromax Z-pack] 250 mg PO DIRECTED #6 tab 09/13/17 methylPREDNISolone Dose Pack 4 mg PO DIRECTED #21 package 09/13/17 [Medrol Dose Pack] Allergies Allergy/AdvReac Type Severity Reaction Status Date / Time Penicillins Allergy Unknown Verified 09/13/17 16:29 Childhood clozapine [From Clozaril] AdvReac Severe Aggression Verified 09/13/17 16:29 Review of Systems ROS Statement: Those systems with pertinent positive or pertinent negative responses have been documented in the HPI. Review of systems. No headache or visual acuity changes. Chief complaints as noted above. Denies chest pain or shortness of breath. States appetite is normal. Normal bowel movements. And then complains any goes from constipation to diarrhea and normal all in one day. He needs to take Kailey's S in order to keep his bowels normal. Denies any neuro deficits. He mentions that occasionally has pain down his right leg with long history of chronic back pain. No complaint of depression. All systems are reviewed. Past medical problems significant for schizophrenia, asthma, insulin-dependent diabetes mellitus, GERD, hypertension, osteoarthritis, his last seizure was 27 years ago. He has sleep apnea but he threw away his CPAP machine. Surgeries include cholecystectomy, heart catheterization no stent, tonsillectomy and pain procedures. ROS Other: All systems not noted in ROS Statement are negative. Past Medical History Past Medical History: Asthma, Diabetes Mellitus, GERD/Reflux, Hypertension, Osteoarthritis (OA), Seizure Disorder, Skin Disorder, Sleep Apnea/CPAP/BIPAP Additional Past Medical History / Comment(s): LAST SEIZURE 28 YRS AGO. chronic back pain. DOES NOT USE CPAP. SPINAL STENOSIS, DDD IN BACK, SCOLIOSIS, IBS, poriasis, frequent urination History of Any Multi-Drug Resistant Organisms: None Reported Past Surgical History: Cholecystectomy, Heart Catheterization, Tonsillectomy Additional Past Surgical History / Comment(s): PAIN PROCEDURES. Past Anesthesia/Blood Transfusion Reactions: Motion Sickness Past Psychological History: ADD/ADHD, Schizophrenia Smoking Status: Current every day smoker Past Alcohol Use History: None Reported Past Drug Use History: None Reported - Past Family History Father Family Medical History: Unable to Obtain Additional Family Medical History / Comment(s): Father left home when pt was 5 yrs old. Mother Family Medical History: Myocardial Infarction ([place]) Additional Family Medical History / Comment(s): Mother at age 55yrs of [place]. General Exam - General Exam Comments Initial Comments: General: The patient is awake and alert, several complaints. Many chronic. Vital signs temp 97.5 pulse 64 respiratory rate 18 pulse ox 98% on room air blood pressure 168/77 Eye: Pupils are equal, round and reactive to light, extra-ocular movements are intact ; there is normal conjunctiva bilaterally. No signs of icterus. Ears, nose, mouth and throat: There are moist mucous membranes and no oral lesions. Right ear TM mildly retracted left ear TM mildly distended and red. Neck: The neck is supple, there is no tenderness. Cardiovascular: There is a regular rate and rhythm. No murmur, rub or gallop is appreciated. Respiratory: Lungs are clear to auscultation, respirations are non-labored, breath sounds are equal. No wheezes, stridor, rales, or rhonchi. Gastrointestinal: Soft, non-distended, non-tender abdomen without masses or organomegaly noted. There is no rebound or guarding present. No CVA tenderness. Bowel sounds are unremarkable. of his genitalia. He reports on-again off-again discomfort first left testicle than the right testicle. Reports also noticed difficulty urinating. No pain with manipulation. No masses palpable on the testicles. No evidence of any urethral discharge. Back: Chronic back pain. Normal ROM, no tenderness, There is no pedal edema. There is no calf tenderness or swelling. On-again off-again pain radiates down the right leg from chronic back pain. Neurological: CN II-XII intact, There are no obvious motor or sensory deficits. Coordination appears grossly intact. Speech is normal. Skin: Skin is warm and dry and no rashes or lesions are noted. Psychiatric: History of schizophrenia. Limitations: no limitations Course Vital Signs 09/13/17 16:19 Temperature 97.5 F L Pulse Rate 64 Respiratory 18 Rate Blood Pressure 168/77 O2 Sat by Pulse 99 Oximetry Medical Decision Making - Medical Decision Making Medical decision making; the patient presents with family for several different complaints. Significant to his being here includes ear fullness which will be treated with azithromycin. Patient advised to eat adequate amounts of roughage. Continue with his medications as prescribed. Nondescript abdominal discomfort. Labs show white count 7.1 hemoglobin 13 hematocrit of 36. Potassium 4.5 with BUN of 17 creatinine 0.99 the GFR greater than 60. Glucose 206. Amylase lipase normal limits. Urine clean no signs of infection. AST ALT both mildly elevated. Sure the abdomen was done reviewed by radiologist his final impression is nonobstructive bowel gas pattern. As read by Dr. Lashawn To be placed on a Zithromax and for his left ear. Told to continue his home medications. Follow-up with family physician. Patient also be placed on a Medrol Dosepak for his chronic low back pain and sciatica. - Lab Data Result diagrams: 09/13/17 17:45 09/13/17 17:45 Lab Results 09/13/17 09/13/17 09/13/17 Range/Units 16:52 17:45 17:45 WBC 7.1 (3.8-10.6) k/uL RBC 4.61 (4.30-5.90) m/uL Hgb 13.1 (13.0-17.5) gm/dL Hct 36.6 L (39.0-53.0) % MCV 79.3 L (80.0-100.0) fL MCH 28.5 (25.0-35.0) pg MCHC 35.9 (31.0-37.0) g/dL RDW 15.0 (11.5-15.5) % Plt Count 134 L (150-450) k/uL Neutrophils % 56 % Lymphocytes % 34 % Monocytes % 5 % Eosinophils % 3 % Basophils % 1 % Neutrophils # 4.0 (1.3-7.7) k/uL Lymphocytes # 2.4 (1.0-4.8) k/uL Monocytes # 0.3 (0-1.0) k/uL Eosinophils # 0.2 (0-0.7) k/uL Basophils # 0.1 (0-0.2) k/uL Sodium 137 (137-145) mmol/L Potassium 4.5 (3.5-5.1) mmol/L Chloride 105 (98-107) mmol/L Carbon Dioxide 24 (22-30) mmol/L Anion Gap 8 mmol/L BUN 17 (9-20) mg/dL Creatinine 0.99 (0.66-1.25) mg/dL Est GFR (MDRD) Af Amer >60 (>60 ml/min/1.73 sqM) Est GFR (MDRD) Non-Af >60 (>60 ml/min/1.73 sqM) Glucose 206 H (74-99) mg/dL Calcium 9.5 (8.4-10.2) mg/dL Total Bilirubin 1.1 (0.2-1.3) mg/dL AST 62 H (17-59) U/L ALT 85 H (21-72) U/L Alkaline Phosphatase 81 (38-126) U/L Total Protein 6.0 L (6.3-8.2) g/dL Albumin 3.7 (3.5-5.0) g/dL Amylase 30 (30-110) U/L Lipase 139 (23-300) U/L Urine Color Yellow Urine Appearance Clear (Clear) Urine pH 5.0 (5.0-8.0) Ur Specific [place] 1.010 (1.001-1.035) Urine Protein Trace H (Negative) Urine Glucose (UA) 3+ H (Negative) Urine Ketones Negative (Negative) Urine Blood Moderate H (Negative) Urine Nitrite Negative (Negative) Urine Bilirubin Negative (Negative) Urine Urobilinogen <2.0 (<2.0) mg/dL Ur Leukocyte Esterase Negative (Negative) Urine RBC 1 (0-5) /hpf Urine WBC 1 (0-5) /hpf Hyaline Casts 1 (0-2) /lpf Urine Mucus Rare H (None) /hpf Disposition Clinical Impression: Left otitis media, Right sided sciatica Disposition: HOME SELF-CARE Condition: Fair Instructions: Otitis Media (ED), Sciatica (ED) Additional Instructions: Use medication as directed. Follow-up with her family physician. Increase fluid intake. Prescriptions: Azithromycin [Zithromax Z-pack] 250 mg PO DIRECTED #6 tab methylPREDNISolone Dose Pack [Medrol Dose Pack] 4 mg PO DIRECTED #21 package Referrals: Brandon Mcpherson MD [Primary Care Provider] - 1-2 days Time of Disposition: 18:52
[2017-09-13 18:03] LABS: Appearance,Urine Clear (Clear); Bilirubin,Urine Negative (Negative); Blood,Urine Moderate (Negative); Color,Urine Yellow; Glucose,Urine (UA) 3+ (Negative); Hyaline Casts,Urine 1 /lpf (0-2); Ketones,Urine Negative (Negative); Leukocyte Esterase,Urine Negative (Negative); Mucus,Urine Rare /hpf; Nitrite,Urine Negative (Negative); Protein,Urine Trace (Negative); RBC,Urine 1 /hpf (0-5); Urobilinogen,Urine <2.0 mg/dL (<2.0); WBC,Urine 1 /hpf (0-5)
[2017-09-13 18:04] LABS: Basophils # (A) 0.1 k/uL (0-0.2); Basophils % (A) 1 %; Eosinophils # (A) 0.2 k/uL (0-0.7); Eosinophils % (A) 3 %; HCT 36.6 % (39.0-53.0); HGB 13.1 gm/dL (13.0-17.5); Lymphocytes # (A) 2.4 k/uL (1.0-4.8); Lymphocytes % (A) 34 %; MCH 28.5 pg (25.0-35.0); MCHC 35.9 g/dL (31.0-37.0); MCV 79.3 fL (80.0-100.0); Mean Platelet Volume 7.8; Monocytes # (A) 0.3 k/uL (0-1.0); Monocytes % (A) 5 %; Neutrophils % (A) 56 %; Platelet Count 134 k/uL (150-450); RBC 4.61 m/uL (4.30-5.90); WBC 7.1 k/uL (3.8-10.6)
[2017-09-13 18:13] LABS: ALT 85 U/L (21-72); AST 62 U/L (17-59); Albumin 3.7 g/dL (3.5-5.0); Alkaline Phosphatase 81 U/L (38-126); Amylase 30 U/L (30-110); Anion Gap 8 mmol/L; Blood Urea Nitrogen 17 mg/dL (9-20); Calcium 9.5 mg/dL (8.4-10.2); Carbon Dioxide 24 mmol/L (22-30); Chloride 105 mmol/L (98-107); Glucose 206 mg/dL (74-99); Lipase 139 U/L (23-300); Potassium 4.5 mmol/L (3.5-5.1); Sodium 137 mmol/L (137-145); Total Bilirubin 1.1 mg/dL (0.2-1.3)
--- NOTE | 2017-09-13 18:46 | XR ---
2 view abdomen HISTORY: Abdominal pain 2 views of the abdomen on 4 images correlated prior abdomen 04/05/2017, CT 08/29/2017 Surgical clips are present in the right upper quadrant. No pneumoperitoneum or bowel obstruction. Pro bable phleboliths in the pelvis. IMPRESSION: Nonobstructive bowel gas pattern
[2017-09-13] MEDS ORDERED: AZITHROMYCIN 500 MG TAB PO STA (19:18)
[2017-09-13] MEDS ORDERED: predniSONE 10 MG TAB PO STA (19:19)
[2017-09-13 19:25] VITALS: BP 130/69; PULSE 90; TEMP 98.3
== END 2017-09-13 19:23 | disposition home or self-care (01) ==
LOC: EC 16:09
DX: H66.92 Otitis media, unspecified, left ear (principal); M54.31 Sciatica, right side; E11.9 Type 2 diabetes mellitus without complications; K21.9 Gastro-esophageal reflux disease without esophagitis; I10 Essential (primary) hypertension; G40.909 Epilepsy, unspecified, not intractable, without status epilepticus; G47.30 Sleep apnea, unspecified; Z99.89 Dependence on other enabling machines and devices; K58.9 Irritable bowel syndrome, unspecified; F20.9 Schizophrenia, unspecified; F90.9 Attention-deficit hyperactivity disorder, unspecified type; F17.200 Nicotine dependence, unspecified, uncomplicated; Z79.4 Long term (current) use of insulin; Z79.899 Other long term (current) drug therapy; Z88.0 Allergy status to penicillin; Z88.8 Allergy status to other drugs, medicaments and biological substances
CPT/HCPCS: 36415; 80053; 82150; 83690; 85025; 81001; 87086; 74019; 99284; J7512

== ENCOUNTER 2017-09-21 09:00 | Emergency (ER) | payer MEDICARE, OTHER ==
[2017-09-21 10:01] LABS: Basophils # (A) 0.1 k/uL (0-0.2); Basophils % (A) 1 %; Eosinophils # (A) 0.1 k/uL (0-0.7); Eosinophils % (A) 1 %; HCT 38.1 % (39.0-53.0); HGB 13.3 gm/dL (13.0-17.5); Lymphocytes # (A) 2.5 k/uL (1.0-4.8); Lymphocytes % (A) 31 %; MCH 28.5 pg (25.0-35.0); MCV 81.6 fL (80.0-100.0); Mean Platelet Volume 8.1; Monocytes # (A) 0.4 k/uL (0-1.0); Monocytes % (A) 4 %; Neutrophils # (A) 5.2 k/uL (1.3-7.7); Neutrophils % (A) 62 %; Platelet Count 128 k/uL (150-450); RBC 4.66 m/uL (4.30-5.90); RDW 15.6 % (11.5-15.5); WBC 8.3 k/uL (3.8-10.6)
[2017-09-21 10:10] LABS: ALT 82 U/L (21-72); AST 52 U/L (17-59); Albumin 3.7 g/dL (3.5-5.0); Alkaline Phosphatase 87 U/L (38-126); Anion Gap 8 mmol/L; Blood Urea Nitrogen 20 mg/dL (9-20); Calcium 9.5 mg/dL (8.4-10.2); Carbon Dioxide 24 mmol/L (22-30); Chloride 107 mmol/L (98-107); Glucose 109 mg/dL (74-99); Lipase 136 U/L (23-300); Potassium 3.9 mmol/L (3.5-5.1); Sodium 139 mmol/L (137-145)
--- NOTE | 2017-09-21 10:22 | ED ---
General Adult HPI - General Chief complaint: Urogenital Stated complaint: Abd Pain, urinary retention Time Seen by Provider: 09/21/17 09:04 Source: patient, EMS, RN notes reviewed Mode of arrival: EMS Limitations: no limitations - History of Present Illness Initial comments: This a 46-year-old male presents emergency department via EMS chief complaint of unable to urinate. Patient states last time he urinated was last night. He states that he tries ago and only a little urine comes out. He's had no prior prostate issues. He denies any dysuria prior to this. He states that he feels bloated distended states he feels that he has to go. Patient states pain seems rated to his back. He's had no prior history kidney stones. Patient denies fever, chills. - Related Data Home Medications Medication Instructions Recorded Confirmed Lisinopril [Zestril] 10 mg PO QAM 06/06/14 09/13/17 Omeprazole [PriLOSEC] 20 mg PO AC-BID 06/06/14 09/13/17 Zolpidem Tartrate [Ambien] 10 mg PO HS 06/06/14 09/13/17 Insulin Glargine [Lantus] 100 unit SQ HS 12/17/14 09/13/17 INSULIN LISPRO (HumaLOG) [HumaLOG] See Protocol SQ AC-TID 08/16/15 09/13/17 Divalproex Sodium [Depakote] 500 mg PO TID 01/10/17 09/13/17 traMADol HCl [Ultram] 50 mg PO ONCE PRN 09/13/17 09/13/17 Previous Rx's Medication Instructions Recorded Azithromycin [Zithromax Z-pack] 250 mg PO DIRECTED #6 tab 09/13/17 methylPREDNISolone Dose Pack 4 mg PO DIRECTED #21 package 09/13/17 [Medrol Dose Pack] Tamsulosin [Flomax] 0.4 mg PO DAILY #7 cap 09/21/17 Allergies Allergy/AdvReac Type Severity Reaction Status Date / Time Penicillins Allergy Unknown Verified 09/21/17 09:13 Childhood clozapine [From Clozaril] AdvReac Severe Aggression Verified 09/21/17 09:13 Review of Systems ROS Statement: Those systems with pertinent positive or pertinent negative responses have been documented in the HPI. ROS Other: All systems not noted in ROS Statement are negative. Past Medical History Past Medical History: Asthma, Diabetes Mellitus, GERD/Reflux, Hypertension, Osteoarthritis (OA), Seizure Disorder, Skin Disorder, Sleep Apnea/CPAP/BIPAP Additional Past Medical History / Comment(s): LAST SEIZURE 28 YRS AGO. chronic back pain. DOES NOT USE CPAP. SPINAL STENOSIS, DDD IN BACK, SCOLIOSIS, IBS, poriasis, frequent urination History of Any Multi-Drug Resistant Organisms: None Reported Past Surgical History: Cholecystectomy, Heart Catheterization, Tonsillectomy Additional Past Surgical History / Comment(s): PAIN PROCEDURES. Past Anesthesia/Blood Transfusion Reactions: Motion Sickness Past Psychological History: ADD/ADHD, Schizophrenia Smoking Status: Current every day smoker Past Alcohol Use History: None Reported Past Drug Use History: None Reported - Past Family History Father Family Medical History: Unable to Obtain Additional Family Medical History / Comment(s): Father left home when pt was 5 yrs old. Mother Family Medical History: Myocardial Infarction ([place]) Additional Family Medical History / Comment(s): Mother at age 55yrs of [place]. General Exam Limitations: no limitations General appearance: alert, in no apparent distress Head exam: Present: atraumatic, normocephalic, normal inspection Respiratory exam: Present: normal lung sounds bilaterally. Absent: respiratory distress, wheezes, rales, rhonchi, stridor Cardiovascular Exam: Present: regular rate, normal rhythm, normal heart sounds. Absent: systolic murmur, diastolic murmur, rubs, gallop, clicks GI/Abdominal exam: Present: soft, tenderness (Mild suprapubic), normal bowel sounds. Absent: distended, guarding, rebound, rigid Back exam: Absent: CVA tenderness (R), CVA tenderness (L) Skin exam: Present: warm, dry, intact, normal color. Absent: rash Course Vital Signs 09/21/17 09:10 Temperature 97.0 F L Pulse Rate 64 Respiratory 17 Rate Blood Pressure 166/86 O2 Sat by Pulse 98 Oximetry Medical Decision Making - Medical Decision Making 46-year-old male presented for urinary retention. Patient states he feels improved after Kim. Patient's lab work essentially unremarkable urinalysis unremarkable. The advised patient we should leave the Kim in started on Flomax and follow-up with urology patient is refusing to leave Kim in his request that it be removed. I did explain that he was may not be able to urinate later and he may need to return for catheter again. He states he understands and requested to be removed and discharge. Patient does have a history of back pain though he has no complaints of back pain at this time. - Lab Data Result diagrams: 09/21/17 09:49 09/21/17 09:49 Lab Results 09/21/17 09/21/17 09/21/17 Range/Units 09:49 09:49 09:49 WBC 8.3 (3.8-10.6) k/uL RBC 4.66 (4.30-5.90) m/uL Hgb 13.3 (13.0-17.5) gm/dL Hct 38.1 L (39.0-53.0) % MCV 81.6 (80.0-100.0) fL MCH 28.5 (25.0-35.0) pg MCHC 35.0 (31.0-37.0) g/dL RDW 15.6 H (11.5-15.5) % Plt Count 128 L (150-450) k/uL Neutrophils % 62 % Lymphocytes % 31 % Monocytes % 4 % Eosinophils % 1 % Basophils % 1 % Neutrophils # 5.2 (1.3-7.7) k/uL Lymphocytes # 2.5 (1.0-4.8) k/uL Monocytes # 0.4 (0-1.0) k/uL Eosinophils # 0.1 (0-0.7) k/uL Basophils # 0.1 (0-0.2) k/uL Sodium 139 (137-145) mmol/L Potassium 3.9 (3.5-5.1) mmol/L Chloride 107 (98-107) mmol/L Carbon Dioxide 24 (22-30) mmol/L Anion Gap 8 mmol/L BUN 20 (9-20) mg/dL Creatinine 0.98 (0.66-1.25) mg/dL Est GFR (MDRD) Af Amer >60 (>60 ml/min/1.73 sqM) Est GFR (MDRD) Non-Af >60 (>60 ml/min/1.73 sqM) Glucose 109 H (74-99) mg/dL Calcium 9.5 (8.4-10.2) mg/dL Total Bilirubin 1.0 (0.2-1.3) mg/dL AST 52 (17-59) U/L ALT 82 H (21-72) U/L Alkaline Phosphatase 87 (38-126) U/L Total Protein 6.0 L (6.3-8.2) g/dL Albumin 3.7 (3.5-5.0) g/dL Lipase 136 (23-300) U/L Urine Color Yellow Urine Appearance Clear (Clear) Urine pH 5.0 (5.0-8.0) Ur Specific [place] 1.015 (1.001-1.035) Urine Protein Trace H (Negative) Urine Glucose (UA) Negative (Negative) Urine Ketones Negative (Negative) Urine Blood Small H (Negative) Urine Nitrite Negative (Negative) Urine Bilirubin Negative (Negative) Urine Urobilinogen <2.0 (<2.0) mg/dL Ur Leukocyte Esterase Negative (Negative) Urine RBC <1 (0-5) /hpf Urine WBC 1 (0-5) /hpf Urine Bacteria Rare H (None) /hpf Hyaline Casts 4 H (0-2) /lpf Urine Mucus Occasional H (None) /hpf Disposition Clinical Impression: Urinary retention Disposition: HOME SELF-CARE Condition: Stable Instructions: Urinary Retention in Men (ED) Additional Instructions: Please return to the Emergency Department if symptoms worsen or any other concerns. Prescriptions: Tamsulosin [Flomax] 0.4 mg PO DAILY #7 cap Referrals: Brandon Mcpherson MD [Primary Care Provider] - 1-2 days Nasir Smith MD [STAFF PHYSICIAN] - 1-2 days Time of Disposition: 10:49
[2017-09-21 10:28] LABS: Appearance,Urine Clear (Clear); Bacteria,Urine Rare /hpf; Bilirubin,Urine Negative (Negative); Blood,Urine Small (Negative); Color,Urine Yellow; Glucose,Urine (UA) Negative (Negative); Hyaline Casts,Urine 4 /lpf (0-2); Ketones,Urine Negative (Negative); Leukocyte Esterase,Urine Negative (Negative); Mucus,Urine Occasional /hpf; Nitrite,Urine Negative (Negative); Protein,Urine Trace (Negative); RBC,Urine <1 /hpf (0-5); Specific Gravity,Urine 1.015 (1.001-1.035); Urobilinogen,Urine <2.0 mg/dL (<2.0); WBC,Urine 1 /hpf (0-5)
[2017-09-21] MEDS ORDERED: TAMSULOSIN 0.4 MG CAP.ER.24H PO STA (10:46)
[2017-09-21 11:10] VITALS: BP 137/73; PULSE 63; RESP 18; TEMP 96.7
== END 2017-09-21 11:38 | disposition home or self-care (01) ==
LOC: EC 09:00
DX: R33.9 Retention of urine, unspecified (principal); E11.9 Type 2 diabetes mellitus without complications; K21.9 Gastro-esophageal reflux disease without esophagitis; I10 Essential (primary) hypertension; Z86.69 Personal history of other diseases of the nervous system and sense organs; F17.200 Nicotine dependence, unspecified, uncomplicated; G47.30 Sleep apnea, unspecified; Z99.89 Dependence on other enabling machines and devices; Z90.49 Acquired absence of other specified parts of digestive tract; Z95.5 Presence of coronary angioplasty implant and graft; Z79.4 Long term (current) use of insulin; Z79.899 Other long term (current) drug therapy; Z88.0 Allergy status to penicillin; Z88.8 Allergy status to other drugs, medicaments and biological substances
CPT/HCPCS: 36415; 51702; 51798; 80053; 81001; 83690; 85025; 99284

== ENCOUNTER 2017-09-22 20:25 | Emergency (ER) | payer MEDICARE, OTHER ==
[2017-09-22 21:46] LABS: Amorphous Sediment,Urine Rare /hpf; Appearance,Urine Clear (Clear); Bilirubin,Urine Negative (Negative); Blood,Urine Moderate (Negative); Color,Urine Yellow; Glucose,Urine (UA) 4+ (Negative); Hyaline Casts,Urine 1 /lpf (0-2); Ketones,Urine Negative (Negative); Leukocyte Esterase,Urine Negative (Negative); Mucus,Urine Rare /hpf; Nitrite,Urine Negative (Negative); Protein,Urine 1+ (Negative); RBC,Urine 11 /hpf (0-5); Specific Gravity,Urine 1.019 (1.001-1.035); Urobilinogen,Urine <2.0 mg/dL (<2.0); WBC,Urine 2 /hpf (0-5)
--- NOTE | 2017-09-22 21:56 | ED ---
General Adult HPI - General Chief complaint: Urogenital Stated complaint: Recheck /Catherter Time Seen by Provider: 09/22/17 21:00 Source: patient, RN notes reviewed Mode of arrival: ambulatory Limitations: no limitations - History of Present Illness Initial comments: This 46-year-old male who presents to the emergency department complaining that he can't urinate. Patient states he had the same thing happen a couple days ago he came to the emergency department I placed a catheter and he felt considerably better. Patient states today he is only urinating very little but he admits that he hasn't drank anything because he is afraid if he drinks too much he will be of urinate and he'll be in a lot of pain. Patient denies fever or chills. Patient denies any back pain. Patient denies any dysuria hematuria. Patient has no history of chronic renal disease that he knows of - Related Data Home Medications Medication Instructions Recorded Confirmed Lisinopril [Zestril] 10 mg PO QAM 06/06/14 09/22/17 Omeprazole [PriLOSEC] 20 mg PO AC-BID 06/06/14 09/22/17 Zolpidem Tartrate [Ambien] 10 mg PO HS 06/06/14 09/22/17 Insulin Glargine [Lantus] 100 unit SQ HS 12/17/14 09/22/17 INSULIN LISPRO (HumaLOG) [HumaLOG] See Protocol SQ AC-TID 08/16/15 09/22/17 Divalproex Sodium [Depakote] 500 mg PO TID 01/10/17 09/22/17 traMADol HCl [Ultram] 50 mg PO ONCE PRN 09/13/17 09/22/17 Previous Rx's Medication Instructions Recorded Tamsulosin [Flomax] 0.4 mg PO DAILY #7 cap 09/21/17 Allergies Allergy/AdvReac Type Severity Reaction Status Date / Time Penicillins Allergy Unknown Verified 09/22/17 21:07 Childhood clozapine [From Clozaril] AdvReac Severe Aggression Verified 09/22/17 21:07 Review of Systems ROS Statement: Those systems with pertinent positive or pertinent negative responses have been documented in the HPI. ROS Other: All systems not noted in ROS Statement are negative. Past Medical History Past Medical History: Asthma, Diabetes Mellitus, GERD/Reflux, Hypertension, Osteoarthritis (OA), Seizure Disorder, Skin Disorder, Sleep Apnea/CPAP/BIPAP Additional Past Medical History / Comment(s): LAST SEIZURE 28 YRS AGO. chronic back pain. DOES NOT USE CPAP. SPINAL STENOSIS, DDD IN BACK, SCOLIOSIS, IBS, poriasis, frequent urination History of Any Multi-Drug Resistant Organisms: None Reported Past Surgical History: Cholecystectomy, Heart Catheterization, Tonsillectomy Additional Past Surgical History / Comment(s): PAIN PROCEDURES. Past Anesthesia/Blood Transfusion Reactions: Motion Sickness Past Psychological History: ADD/ADHD, Schizophrenia Smoking Status: Current every day smoker Past Alcohol Use History: None Reported Past Drug Use History: None Reported - Past Family History Father Family Medical History: Unable to Obtain Additional Family Medical History / Comment(s): Father left home when pt was 5 yrs old. Mother Family Medical History: Myocardial Infarction ([place]) Additional Family Medical History / Comment(s): Mother at age 55yrs of [place]. General Exam - General Exam Comments Initial Comments: GENERAL: Patient is well-developed and well-nourished. Patient is nontoxic and well- hydrated and is in no acute distress. ENT: Neck is soft and supple. No significant lymphadenopathy is noted. Oropharynx is clear. Moist mucous membranes. Neck has full range of motion without eliciting any pain. Eyes The sclera were anicteric and conjunctiva were pink and moist. Extraocular movements were intact and pupils were equal round and reactive to light. Eyelids were unremarkable. PULMONARY: Unlabored respirations. Good breath sounds bilaterally. No audible rales rhonchi or wheezing was noted. CARDIOVASCULAR: There is a regular rate and rhythm without any murmurs gallops or rubs. ABDOMEN: Soft and nontender with normal bowel sounds. No palpable organomegaly was noted. There is no palpable pulsatile mass. SKIN: Skin is clear with no lesions or rashes and otherwise unremarkable. NEUROLOGIC: Patient is alert and oriented x3. Cranial nerves II through XII are grossly intact. Motor and sensory are also intact. Normal speech, volume and content. Symmetrical smile. MUSCULOSKELETAL: Normal extremities with adequate strength and full range of motion. lona tenderness. LYMPHATICS: No significant lymphadenopathy is noted PSYCHIATRIC: Normal psychiatric evaluation. Normal interpersonal interactions appears functionally intact in deals appropriately with others. No signs of depression. No signs of anxiety. Limitations: no limitations Course Vital Signs 09/22/17 09/22/17 20:45 22:00 Temperature 97.1 F L 97 F L Pulse Rate 83 89 Respiratory 20 18 Rate Blood Pressure 144/88 140/82 O2 Sat by Pulse 96 97 Oximetry Medical Decision Making - Medical Decision Making A Kim catheter was placed and the patient had out only 100 mL of urine. Patient states she's been on medications but he refuses to take. Patient does not have an expiration as to why he hasn't taken. Patient states she will follow-up with primary medical care doctor. Patient states tonight he didn't take his insulin because he was coming here. Patient states he smokes doesn't take his Depakote doesn't take his blood pressure or cholesterol medications. - Lab Data Lab Results 09/22/17 09/22/17 Range/Units 21:02 21:59 POC Glucose (mg/dL) 265 H (75-99) mg/dL POC Glu Cardroom Attendant ID Evin Hays Urine Color Yellow Urine Appearance Clear (Clear) Urine pH 5.0 (5.0-8.0) Ur Specific [place] 1.019 (1.001-1.035) Urine Protein 1+ H (Negative) Urine Glucose (UA) 4+ H (Negative) Urine Ketones Negative (Negative) Urine Blood Moderate H (Negative) Urine Nitrite Negative (Negative) Urine Bilirubin Negative (Negative) Urine Urobilinogen <2.0 (<2.0) mg/dL Ur Leukocyte Esterase Negative (Negative) Urine RBC 11 H (0-5) /hpf Urine WBC 2 (0-5) /hpf Amorphous Sediment Rare H (None) /hpf Hyaline Casts 1 (0-2) /lpf Urine Mucus Rare H (None) /hpf Disposition Clinical Impression: Oliguria Disposition: HOME SELF-CARE Condition: Good Instructions: Urinary Retention in Men (ED) Referrals: Brandon Mcpherson MD [Primary Care Provider] - 1-2 days Time of Disposition: 22:01
[2017-09-22 22:02] VITALS: BP 140/82; PULSE 89; RESP 18; TEMP 97
[2017-09-22 22:03] LABS: Glucose,Whole Blood 265 mg/dL (75-99)
== END 2017-09-22 22:11 | disposition home or self-care (01) ==
LOC: EC 20:25
DX: R34 Anuria and oliguria (principal); E11.9 Type 2 diabetes mellitus without complications; I10 Essential (primary) hypertension; K21.9 Gastro-esophageal reflux disease without esophagitis; G40.909 Epilepsy, unspecified, not intractable, without status epilepticus; G47.30 Sleep apnea, unspecified; F20.9 Schizophrenia, unspecified; F17.200 Nicotine dependence, unspecified, uncomplicated; Z88.0 Allergy status to penicillin; Z88.8 Allergy status to other drugs, medicaments and biological substances; Z99.89 Dependence on other enabling machines and devices; Z79.4 Long term (current) use of insulin; Z79.899 Other long term (current) drug therapy
CPT/HCPCS: 36415; 51702; 81001; 99283

== ENCOUNTER → 2017-09-25 | Outpatient (CLI) | payer MEDICARE, OTHER ==
[2017-09-25 17:58] LABS: Albumin 3.8 g/dL (3.5-5.0); Bilirubin, Delta 0.2 mg/dL (0.0-0.2); Bilirubin,Unconjugated 0.4 mg/dL (0.0-1.1); Total Bilirubin 0.6 mg/dL (0.2-1.3); Total Protein 6.1 g/dL (6.3-8.2)
== END | disposition home or self-care (01) ==
LOC: LABWHC1 17:06
DX: R74.9 Abnormal serum enzyme level, unspecified (principal)
CPT/HCPCS: 36415; 80076; 82150; 83690; 86301

== ENCOUNTER 2017-10-02 03:15 | Emergency (ER) | payer MEDICARE, OTHER ==
[2017-10-02 03:33] VITALS: TEMP 97.1
[2017-10-02] MEDS ORDERED: DOCUSATE 283 MG/5 ML ENEMA RECTAL STA (05:22)
[2017-10-02] MEDS ORDERED: MAGNESIUM CITRATE 296 ML BOTTLE PO ONE (05:23)
--- NOTE | 2017-10-02 05:33 | ED ---
Abdominal Pain HPI - General Chief Complaint: Abdominal Pain Stated Complaint: constipation Time Seen by Provider: 10/02/17 03:43 Source: patient Mode of arrival: ambulatory Limitations: no limitations - History of Present Illness MD Complaint: abdominal pain, other -: days(s) (Patient) Location: diffuse Severity: mild Quality: cramping Consistency: colicky Improves With: nothing Worsens With: nothing Associated Symptoms: constipation - Related Data Home Medications Medication Instructions Recorded Confirmed Lisinopril [Zestril] 10 mg PO QAM 06/06/14 10/07/17 Zolpidem Tartrate [Ambien] 10 mg PO HS 06/06/14 10/07/17 Insulin Glargine [Lantus] 100 unit SQ HS 12/17/14 10/07/17 INSULIN LISPRO (HumaLOG) [HumaLOG] See Protocol SQ AC-TID 08/16/15 10/07/17 Divalproex Sodium [Depakote] 500 mg PO TID 01/10/17 10/07/17 Alfuzosin HCl [Alfuzosin HCl ER] 10 mg PO DAILY 10/07/17 10/07/17 Previous Rx's Medication Instructions Recorded Tamsulosin [Flomax] 0.4 mg PO DAILY #7 cap 09/21/17 Allergies Allergy/AdvReac Type Severity Reaction Status Date / Time Penicillins Allergy Unknown Verified 10/07/17 15:23 Childhood clozapine [From Clozaril] AdvReac Severe Aggression Verified 10/07/17 15:23 Review of Systems ROS Statement: Those systems with pertinent positive or pertinent negative responses have been documented in the HPI. ROS Other: All systems not noted in ROS Statement are negative. Constitutional: Denies: fever, chills Respiratory: Denies: cough, dyspnea Cardiovascular: Denies: chest pain, palpitations Gastrointestinal: Reports: as per HPI, abdominal pain, constipation. Denies: nausea, vomiting, diarrhea, melena, hematochezia Genitourinary: Denies: dysuria, hematuria Musculoskeletal: Denies: back pain Skin: Denies: rash Past Medical History Past Medical History: Asthma, Diabetes Mellitus, GERD/Reflux, Hypertension, Osteoarthritis (OA), Seizure Disorder, Skin Disorder, Sleep Apnea/CPAP/BIPAP Additional Past Medical History / Comment(s): LAST SEIZURE 28 YRS AGO. chronic back pain. DOES NOT USE CPAP. SPINAL STENOSIS, DDD IN BACK, SCOLIOSIS, IBS, poriasis, frequent urination History of Any Multi-Drug Resistant Organisms: None Reported Past Surgical History: Cholecystectomy, Heart Catheterization, Tonsillectomy Additional Past Surgical History / Comment(s): PAIN PROCEDURES. Past Anesthesia/Blood Transfusion Reactions: Motion Sickness Past Psychological History: ADD/ADHD, Schizophrenia Smoking Status: Current some day smoker Past Alcohol Use History: None Reported Past Drug Use History: None Reported - Past Family History Father Family Medical History: Unable to Obtain Additional Family Medical History / Comment(s): Father left home when pt was 5 yrs old. Mother Family Medical History: Myocardial Infarction ([place]) Additional Family Medical History / Comment(s): Mother at age 55yrs of [place]. General Exam Limitations: no limitations General appearance: alert, in no apparent distress Head exam: Present: atraumatic, normocephalic Eye exam: Present: normal appearance. Absent: scleral icterus, conjunctival injection ENT exam: Present: normal oropharynx Respiratory exam: Present: normal lung sounds bilaterally. Absent: respiratory distress, wheezes, rales, rhonchi, stridor Cardiovascular Exam: Present: regular rate, normal rhythm, normal heart sounds. Absent: systolic murmur, diastolic murmur, rubs, gallop GI/Abdominal exam: Present: soft. Absent: distended, tenderness, guarding, rebound, rigid, pulsatile mass, hernia Extremities exam: Present: normal inspection, normal capillary refill. Absent: pedal edema, calf tenderness Back exam: Present: normal inspection. Absent: CVA tenderness (R), CVA tenderness (L) Skin exam: Present: warm, dry, intact, normal color. Absent: rash Course Vital Signs 10/02/17 10/02/17 03:29 05:41 Temperature 97.1 F L 97.1 F L Pulse Rate 88 86 Respiratory 24 20 Rate Blood Pressure 136/65 114/59 O2 Sat by Pulse 100 97 Oximetry Medical Decision Making - Medical Decision Making Patient's 46-year-old man presenting with constipation and abdominal pain going on for 2 days now. He did request enema and had relief following that. Disposition Clinical Impression: Constipation Disposition: HOME SELF-CARE Condition: Fair Instructions: Constipation (ED) Referrals: Brandon Mcpherson MD [Primary Care Provider] - 1-2 days
[2017-10-02] MEDS ORDERED: traMADol 50 MG TAB PO STA (05:34)
[2017-10-02 05:44] VITALS: BP 114/59; PULSE 86; RESP 20
--- NOTE | 2017-10-03 08:03 | CDI ---
Documentation Clarification OP Dear Jaleel RICARDO MD Please do addendum to ED report for HPI , Physical exam and MDM. Thank you, Ludivina Malcolm Director Family If you have any question, Please contact computer operations manager at [phone] [facility]
== END 2017-10-02 06:15 | disposition home or self-care (01) ==
LOC: EC 03:15
DX: K59.00 Constipation, unspecified (principal); R10.84 Generalized abdominal pain; E11.9 Type 2 diabetes mellitus without complications; I10 Essential (primary) hypertension; G40.909 Epilepsy, unspecified, not intractable, without status epilepticus; Z99.89 Dependence on other enabling machines and devices; F20.9 Schizophrenia, unspecified; F90.9 Attention-deficit hyperactivity disorder, unspecified type; F17.200 Nicotine dependence, unspecified, uncomplicated; Z79.4 Long term (current) use of insulin; Z79.899 Other long term (current) drug therapy; Z88.0 Allergy status to penicillin; Z88.8 Allergy status to other drugs, medicaments and biological substances; Z90.49 Acquired absence of other specified parts of digestive tract
CPT/HCPCS: 99283

== ENCOUNTER 2017-10-07 13:27 | Emergency (ER) | payer MEDICARE, OTHER ==
[2017-10-07 13:39] VITALS: RESP 20; TEMP 98.1
--- NOTE | 2017-10-07 15:25 | ED ---
General Adult HPI - General Chief complaint: Urogenital Stated complaint: bowel problems & cannot urinate Time Seen by Provider: 10/07/17 15:08 Source: patient, RN notes reviewed, old records reviewed Mode of arrival: ambulatory Limitations: no limitations - History of Present Illness Initial comments: 38-year-old man presents with chief complaint of inability to urinate. Patient states he has had this issue in the past. Thinks it is related to constipation and his IBS. Patient states he took medication for his IBS this morning but has not had a large bowel movement. He states he had a bowel movement yesterday which was normal. He does feel he is constipated and this is why he cannot urinate. He follows with urology for urinary retention. Currently on Flomax. He also follows with gastroenterology for his IBS. Patient states he is urinating several times in the past 2 hours but this is all very small volumes. He has abdominal fullness and distention. Denies significant pain. Denies fever or chills. Denies chest pain or shortness of breath. Patient has no other complaints. - Related Data Home Medications Medication Instructions Recorded Confirmed Lisinopril [Zestril] 10 mg PO QAM 06/06/14 10/07/17 Zolpidem Tartrate [Ambien] 10 mg PO HS 06/06/14 10/07/17 Insulin Glargine [Lantus] 100 unit SQ HS 12/17/14 10/07/17 INSULIN LISPRO (HumaLOG) [HumaLOG] See Protocol SQ AC-TID 08/16/15 10/07/17 Divalproex Sodium [Depakote] 500 mg PO TID 01/10/17 10/07/17 Alfuzosin HCl [Alfuzosin HCl ER] 10 mg PO DAILY 10/07/17 10/07/17 Previous Rx's Medication Instructions Recorded Tamsulosin [Flomax] 0.4 mg PO DAILY #7 cap 09/21/17 Allergies Allergy/AdvReac Type Severity Reaction Status Date / Time Penicillins Allergy Unknown Verified 10/07/17 15:23 Childhood clozapine [From Clozaril] AdvReac Severe Aggression Verified 10/07/17 15:23 Review of Systems ROS Statement: Those systems with pertinent positive or pertinent negative responses have been documented in the HPI. ROS Other: All systems not noted in ROS Statement are negative. Past Medical History Past Medical History: Asthma, Diabetes Mellitus, GERD/Reflux, Hypertension, Osteoarthritis (OA), Seizure Disorder, Skin Disorder, Sleep Apnea/CPAP/BIPAP Additional Past Medical History / Comment(s): LAST SEIZURE 28 YRS AGO. chronic back pain. DOES NOT USE CPAP. SPINAL STENOSIS, DDD IN BACK, SCOLIOSIS, IBS, poriasis, frequent urination History of Any Multi-Drug Resistant Organisms: None Reported Past Surgical History: Cholecystectomy, Heart Catheterization, Tonsillectomy Additional Past Surgical History / Comment(s): PAIN PROCEDURES. Past Anesthesia/Blood Transfusion Reactions: Motion Sickness Past Psychological History: ADD/ADHD, Schizophrenia Smoking Status: Current some day smoker Past Alcohol Use History: None Reported Past Drug Use History: None Reported - Past Family History Father Family Medical History: Unable to Obtain Additional Family Medical History / Comment(s): Father left home when pt was 5 yrs old. Mother Family Medical History: Myocardial Infarction ([place]) Additional Family Medical History / Comment(s): Mother at age 55yrs of [place]. General Exam Limitations: no limitations General appearance: alert, in no apparent distress Head exam: Present: atraumatic, normocephalic Eye exam: Present: normal appearance, PERRL ENT exam: Present: normal exam Neck exam: Present: normal inspection. Absent: tenderness, meningismus Respiratory exam: Present: normal lung sounds bilaterally. Absent: respiratory distress, wheezes Cardiovascular Exam: Present: regular rate, normal rhythm GI/Abdominal exam: Present: soft. Absent: distended, tenderness, guarding, rebound Extremities exam: Present: normal inspection. Absent: full ROM, tenderness Back exam: Present: normal inspection. Absent: full ROM, tenderness Neurological exam: Present: alert, oriented X3. Absent: motor sensory deficit Psychiatric exam: Present: normal affect, normal mood Skin exam: Present: warm, dry, intact. Absent: cyanosis, diaphoretic, erythema Course Vital Signs 10/07/17 13:37 Temperature 98.1 F Pulse Rate 77 Respiratory 20 Rate Blood Pressure 132/68 O2 Sat by Pulse 98 Oximetry Medical Decision Making - Medical Decision Making 46-year-old male presenting with increased urinary frequency and concern for urinary retention. Patient's past residual is 92. He feels his symptoms were secondary to constipation although he did have a bowel movement this morning. X -rays obtained, negative for obstruction or free air, there is no significant stool burning. Glucose level was obtained, this is normal at 112. Patient will follow-up with his primary care physician and urologist regarding these symptoms. - Lab Data Lab Results 10/07/17 10/07/17 Range/Units 15:50 16:25 POC Glucose (mg/dL) 112 H (75-99) mg/dL POC Glu Dry End Operator ID Kenny Kam Urine Color Light Yellow Urine Appearance Clear (Clear) Urine pH 5.0 (5.0-8.0) Ur Specific [place] 1.004 (1.001-1.035) Urine Protein Negative (Negative) Urine Glucose (UA) Negative (Negative) Urine Ketones Negative (Negative) Urine Blood Small H (Negative) Urine Nitrite Negative (Negative) Urine Bilirubin Negative (Negative) Urine Urobilinogen <2.0 (<2.0) mg/dL Ur Leukocyte Esterase Negative (Negative) Urine WBC <1 (0-5) /hpf Disposition Clinical Impression: Constipation, Urinary frequency Disposition: HOME SELF-CARE Condition: Good Instructions: Dysuria (ED) Referrals: Brandon Mcpherson MD [Primary Care Provider] - 1-2 days Time of Disposition: 16:50
--- NOTE | 2017-10-07 15:46 | XR ---
EXAMINATION TYPE: XR KUB DATE OF EXAM: 10/07/2017 3:39 PM CLINICAL HISTORY: Abdominal pain with dysuria TECHNIQUE: Two Upright KUB images of the abdomen are obtained. COMPARISON: CT renal stones August 29, 2017. Abdominal x-ray September 13, 2017 FINDINGS: Scattered gas is seen in non-distended small bowel loops. Gas and fecal material is seen in non-distended colon. Cholecystectomy clips are redemonstrated. No suspicious calcifications are seen . Spleen size is stable and mildly enlarged. No pneumoperitoneum is noted. Lung bases are clear. Visu alized osseous structures are intact. IMPRESSION: Overall nonobstructive bowel gas pattern. No definite nephrolithiasis. No significant change from sal or studies.
[2017-10-07 16:20] LABS: Appearance,Urine Clear (Clear); Bilirubin,Urine Negative (Negative); Blood,Urine Small (Negative); Color,Urine Light Yellow; Glucose,Urine (UA) Negative (Negative); Ketones,Urine Negative (Negative); Leukocyte Esterase,Urine Negative (Negative); Nitrite,Urine Negative (Negative); Protein,Urine Negative (Negative); Specific Gravity,Urine 1.004 (1.001-1.035); Urobilinogen,Urine <2.0 mg/dL (<2.0); WBC,Urine <1 /hpf (0-5)
[2017-10-07 16:43] LABS: Glucose,Whole Blood 112 mg/dL (75-99)
[2017-10-07 16:50] VITALS: BP 129/80; PULSE 68
== END 2017-10-07 17:04 | disposition home or self-care (01) ==
LOC: EC 13:27
DX: K59.00 Constipation, unspecified (principal); R35.0 Frequency of micturition; E11.9 Type 2 diabetes mellitus without complications; I10 Essential (primary) hypertension; G40.909 Epilepsy, unspecified, not intractable, without status epilepticus; G47.30 Sleep apnea, unspecified; Z99.89 Dependence on other enabling machines and devices; F17.200 Nicotine dependence, unspecified, uncomplicated; Z88.0 Allergy status to penicillin; Z88.8 Allergy status to other drugs, medicaments and biological substances; Z79.4 Long term (current) use of insulin; Z79.899 Other long term (current) drug therapy
CPT/HCPCS: 36415; 51798; 74018; 81001; 99284

== ENCOUNTER → 2017-10-14 | Outpatient (CLI) | payer MEDICARE, OTHER ==
--- NOTE | 2017-10-14 17:32 | XR ---
EXAMINATION TYPE: XR cervical spine comp DATE OF EXAM: 10/14/2017 COMPARISON: NONE HISTORY: 46-year-old male with cervicalgia, chronic neck pain TECHNIQUE: 6 views FINDINGS: No predental space widening or prevertebral soft tissue swelling. There is scattered mild facet and u ncovertebral joint degenerative change. Normal odontoid view. Preserved alignment. Changes result in mild bony spondylotic neuroforaminal narrowing on the right and C6-C7 and C7-T1. On the left, no significant bony spondylotic neuroforaminal narrowing. IMPRESSION: Mild spondylotic change lower cervical spine.
--- NOTE | 2017-10-14 17:35 | XR ---
EXAMINATION TYPE: XR lumbar spine 2 or 3V DATE OF EXAM: 10/14/2017 COMPARISON: 07/11/2015 HISTORY: 46-year-old male with low back pain TECHNIQUE: 3 views FINDINGS: Hypertrophic facet arthropathy lower lumbar spine. Transitional lumbosacral segment which will be den oted as a sacralized L5. There is grade 2 anterolisthesis above this transitional segment at L4-L5 wi th associated severe degenerative disc disease. The anterolisthesis is slightly increased from 015. Vertebral body heights are maintained. IMPRESSION: Transitional lumbosacral segment denoted as a sacralized L5. Grade 2 anterolisthesis above the transi tional segment at L4-L5 with associated severe degenerative disc disease. The anterolisthesis is slig htly increased from 2014.
== END | disposition home or self-care (01) ==
LOC: RADXRMAIN 14:08
PROVIDERS: ATTEND Family Medicine
DX: M47.812 Spondylosis without myelopathy or radiculopathy, cervical region (principal); M43.16 Spondylolisthesis, lumbar region; M51.36 Other intervertebral disc degeneration, lumbar region; M46.86 Other specified inflammatory spondylopathies, lumbar region
CPT/HCPCS: 72050; 72100

== ENCOUNTER 2017-10-15 19:54 | Emergency (ER) | payer MEDICARE, OTHER ==
--- NOTE | 2017-10-15 21:27 | ED ---
General Adult HPI - General Chief complaint: Abdominal Pain Stated complaint: Constipation Time Seen by Provider: 10/15/17 21:13 Source: patient, RN notes reviewed Mode of arrival: ambulatory Limitations: no limitations - History of Present Illness Initial comments: Patient is a pleasant 46-year-old male presenting to the emergency department with concerns for constipation. Last bowel movement was yesterday. Patient has irritable bowel syndrome and states he takes medicine daily to have a bowel movement. Patient stopped taking his medicine because it makes him feel dizzy. Patient did try an enema today without having a bowel movement. Patient feels mildly full like he does have a bowel movement. No fever. No nausea vomiting. This is a chronic problem for him. - Related Data Home Medications Medication Instructions Recorded Confirmed Lisinopril [Zestril] 10 mg PO QAM 06/06/14 10/15/17 Zolpidem Tartrate [Ambien] 10 mg PO HS 06/06/14 10/15/17 Insulin Glargine [Lantus] 100 unit SQ HS 12/17/14 10/15/17 INSULIN LISPRO (HumaLOG) [HumaLOG] See Protocol SQ AC-TID 08/16/15 10/15/17 Divalproex Sodium [Depakote] 500 mg PO TID 01/10/17 10/15/17 Alfuzosin HCl [Alfuzosin HCl ER] 10 mg PO DAILY 10/07/17 10/15/17 Polyethylene Glycol 3350 [Miralax] 17 gm PO DAILY PRN 10/15/17 10/15/17 Previous Rx's Medication Instructions Recorded Tamsulosin [Flomax] 0.4 mg PO DAILY #7 cap 09/21/17 Allergies Allergy/AdvReac Type Severity Reaction Status Date / Time Penicillins Allergy Unknown Verified 10/15/17 20:34 Childhood clozapine [From Clozaril] AdvReac Severe Aggression Verified 10/15/17 20:34 Review of Systems ROS Statement: Those systems with pertinent positive or pertinent negative responses have been documented in the HPI. ROS Other: All systems not noted in ROS Statement are negative. Constitutional: Denies: fever Eyes: Denies: eye pain ENT: Denies: ear pain Respiratory: Denies: cough Cardiovascular: Denies: chest pain Endocrine: Denies: fatigue Gastrointestinal: Reports: constipation. Denies: vomiting, diarrhea Genitourinary: Denies: dysuria Musculoskeletal: Denies: back pain Skin: Denies: rash Neurological: Denies: weakness Past Medical History Past Medical History: Asthma, Diabetes Mellitus, GERD/Reflux, Hypertension, Osteoarthritis (OA), Seizure Disorder, Skin Disorder, Sleep Apnea/CPAP/BIPAP Additional Past Medical History / Comment(s): LAST SEIZURE 28 YRS AGO. chronic back pain. DOES NOT USE CPAP. SPINAL STENOSIS, DDD IN BACK, SCOLIOSIS, IBS, poriasis, frequent urination History of Any Multi-Drug Resistant Organisms: None Reported Past Surgical History: Cholecystectomy, Heart Catheterization, Tonsillectomy Additional Past Surgical History / Comment(s): PAIN PROCEDURES. Past Anesthesia/Blood Transfusion Reactions: Motion Sickness Past Psychological History: ADD/ADHD, Schizophrenia Smoking Status: Current some day smoker Past Alcohol Use History: None Reported Past Drug Use History: None Reported - Past Family History Father Family Medical History: Unable to Obtain Additional Family Medical History / Comment(s): Father left home when pt was 5 yrs old. Mother Family Medical History: Myocardial Infarction ([place]) Additional Family Medical History / Comment(s): Mother at age 55yrs of [place]. General Exam Limitations: no limitations General appearance: alert, in no apparent distress Head exam: Present: atraumatic Eye exam: Present: normal appearance, PERRL ENT exam: Present: normal oropharynx Neck exam: Present: normal inspection Respiratory exam: Present: normal lung sounds bilaterally Cardiovascular Exam: Present: regular rate, normal rhythm Expanded Peripheral pulses: 2+: Posterior Tibialis (R), Posterior Tibialis (L) GI/Abdominal exam: Present: soft, normal bowel sounds. Absent: distended, tenderness, guarding, rebound, rigid, pulsatile mass Extremities exam: Present: normal inspection Neurological exam: Present: alert Psychiatric exam: Present: normal affect, normal mood Skin exam: Present: normal color Course Vital Signs 10/15/17 10/15/17 20:31 23:20 Temperature 99.1 F Pulse Rate 76 Respiratory 20 18 Rate Blood Pressure 139/76 O2 Sat by Pulse 100 Oximetry - Reevaluation(s) Reevaluation #1: 10/16/17 00:04 Patient still complaining of discomfort. Abdomen is soft with mild suprapubic tenderness. Patient did have a bowel movement. Patient feels like he maybe didn't fully empty however is now agreeable to further evaluation. Medical Decision Making - Medical Decision Making Patient reevaluated and resting comfortably in bed. Patient updated on results and need for follow-up. - Lab Data Result diagrams: 10/16/17 00:15 10/16/17 00:15 Lab Results 10/16/17 10/16/17 10/16/17 Range/Units 00:15 00:15 00:15 WBC 8.2 (3.8-10.6) k/uL RBC 4.55 (4.30-5.90) m/uL Hgb 12.9 L (13.0-17.5) gm/dL Hct 37.6 L (39.0-53.0) % MCV 82.5 (80.0-100.0) fL MCH 28.3 (25.0-35.0) pg MCHC 34.3 (31.0-37.0) g/dL RDW 13.8 (11.5-15.5) % Plt Count 158 (150-450) k/uL Neutrophils % 54 % Lymphocytes % 36 % Monocytes % 4 % Eosinophils % 3 % Basophils % 1 % Neutrophils # 4.5 (1.3-7.7) k/uL Lymphocytes # 2.9 (1.0-4.8) k/uL Monocytes # 0.4 (0-1.0) k/uL Eosinophils # 0.3 (0-0.7) k/uL Basophils # 0.1 (0-0.2) k/uL PT 10.3 (9.0-12.0) sec INR 1.1 (<1.2) APTT 24.0 (22.0-30.0) sec Sodium 138 (137-145) mmol/L Potassium 3.9 (3.5-5.1) mmol/L Chloride 104 (98-107) mmol/L Carbon Dioxide 24 (22-30) mmol/L Anion Gap 10 mmol/L BUN 13 (9-20) mg/dL Creatinine 1.00 (0.66-1.25) mg/dL Est GFR (MDRD) Af Amer >60 (>60 ml/min/1.73 sqM) Est GFR (MDRD) Non-Af >60 (>60 ml/min/1.73 sqM) Glucose 163 H (74-99) mg/dL Calcium 9.7 (8.4-10.2) mg/dL Total Bilirubin 1.3 (0.2-1.3) mg/dL AST 35 (17-59) U/L ALT 62 (21-72) U/L Alkaline Phosphatase 87 (38-126) U/L Total Protein 6.6 (6.3-8.2) g/dL Albumin 4.1 (3.5-5.0) g/dL Amylase 38 (30-110) U/L Lipase 143 (23-300) U/L Urine Color Urine Appearance (Clear) Urine pH (5.0-8.0) Ur Specific [place] (1.001-1.035) Urine Protein (Negative) Urine Glucose (UA) (Negative) Urine Ketones (Negative) Urine Blood (Negative) Urine Nitrite (Negative) Urine Bilirubin (Negative) Urine Urobilinogen (<2.0) mg/dL Ur Leukocyte Esterase (Negative) Urine RBC (0-5) /hpf Urine WBC (0-5) /hpf Ur Squamous Epith Cells (0-4) /hpf Hyaline Casts (0-2) /lpf Granular Casts (0) /lpf Urine Mucus (None) /hpf 10/16/17 Range/Units 00:15 WBC (3.8-10.6) k/uL RBC (4.30-5.90) m/uL Hgb (13.0-17.5) gm/dL Hct (39.0-53.0) % MCV (80.0-100.0) fL MCH (25.0-35.0) pg MCHC (31.0-37.0) g/dL RDW (11.5-15.5) % Plt Count (150-450) k/uL Neutrophils % % Lymphocytes % % Monocytes % % Eosinophils % % Basophils % % Neutrophils # (1.3-7.7) k/uL Lymphocytes # (1.0-4.8) k/uL Monocytes # (0-1.0) k/uL Eosinophils # (0-0.7) k/uL Basophils # (0-0.2) k/uL PT (9.0-12.0) sec INR (<1.2) APTT (22.0-30.0) sec Sodium (137-145) mmol/L Potassium (3.5-5.1) mmol/L Chloride (98-107) mmol/L Carbon Dioxide (22-30) mmol/L Anion Gap mmol/L BUN (9-20) mg/dL Creatinine (0.66-1.25) mg/dL Est GFR (MDRD) Af Amer (>60 ml/min/1.73 sqM) Est GFR (MDRD) Non-Af (>60 ml/min/1.73 sqM) Glucose (74-99) mg/dL Calcium (8.4-10.2) mg/dL Total Bilirubin (0.2-1.3) mg/dL AST (17-59) U/L ALT (21-72) U/L Alkaline Phosphatase (38-126) U/L Total Protein (6.3-8.2) g/dL Albumin (3.5-5.0) g/dL Amylase (30-110) U/L Lipase (23-300) U/L Urine Color Yellow Urine Appearance Clear (Clear) Urine pH 5.0 (5.0-8.0) Ur Specific [place] 1.007 (1.001-1.035) Urine Protein Trace H (Negative) Urine Glucose (UA) Negative (Negative) Urine Ketones Negative (Negative) Urine Blood Small H (Negative) Urine Nitrite Negative (Negative) Urine Bilirubin Negative (Negative) Urine Urobilinogen <2.0 (<2.0) mg/dL Ur Leukocyte Esterase Negative (Negative) Urine RBC 1 (0-5) /hpf Urine WBC <1 (0-5) /hpf Ur Squamous Epith Cells <1 (0-4) /hpf Hyaline Casts 26 H (0-2) /lpf Granular Casts 3 (0) /lpf Urine Mucus Rare H (None) /hpf - Radiology Data Radiology results: report reviewed (Computed tomography scan shows normal appendix. No significant change. No evidence of constipation.), image reviewed (Abdominal x-ray shows nonacute abdomen.) Disposition Clinical Impression: Abdominal pain Disposition: HOME SELF-CARE Condition: Stable Instructions: Abdominal Pain (ED), High Fiber Diet (ED) Additional Instructions: Please follow-up with your doctor next day or 2 for recheck. Return for increased pain, fevers, worsening or changing symptoms or other concerns. Referrals: Brandon Mcpherson MD [Primary Care Provider] - 1-2 days
--- NOTE | 2017-10-15 21:59 | XR ---
EXAMINATION TYPE: XR abdomen 2V DATE OF EXAM: 10/15/2017 COMPARISON: 10/07/2017 HISTORY: Abdominal pain TECHNIQUE: 3 views FINDINGS: There is no sign of intestinal obstruction or pneumoperitoneum. Fecal pattern is normal. Marquita ng bases are clear. There are no pathologic calcifications over the kidneys. There are clips from cho lecystectomy. IMPRESSION: Nonacute abdomen. No change.
[2017-10-15] MEDS ORDERED: LACTULOSE 20 GM/30 ML CUP PO ONE (22:30)
[2017-10-16] MEDS ORDERED: HYDROmorphone 2 MG/ML 1 ML SYRINGE IVP STA (00:03)
[2017-10-16] MEDS ORDERED: RX INFO: IV CONTRAST WAS GIVEN 1 EACH MISC MISCELLANE PRN (00:03)
[2017-10-16] MEDS ORDERED: SODIUM CHLORIDE 0.9% 1,000 ML IV STA (00:03)
[2017-10-16 00:30] LABS: Basophils # (A) 0.1 k/uL (0-0.2); Basophils % (A) 1 %; Eosinophils # (A) 0.3 k/uL (0-0.7); Eosinophils % (A) 3 %; HCT 37.6 % (39.0-53.0); HGB 12.9 gm/dL (13.0-17.5); Lymphocytes # (A) 2.9 k/uL (1.0-4.8); Lymphocytes % (A) 36 %; MCH 28.3 pg (25.0-35.0); MCHC 34.3 g/dL (31.0-37.0); MCV 82.5 fL (80.0-100.0); Mean Platelet Volume 7.3; Monocytes # (A) 0.4 k/uL (0-1.0); Monocytes % (A) 4 %; Neutrophils # (A) 4.5 k/uL (1.3-7.7); Neutrophils % (A) 54 %; Platelet Count 158 k/uL (150-450); RBC 4.55 m/uL (4.30-5.90); RDW 13.8 % (11.5-15.5); WBC 8.2 k/uL (3.8-10.6)
[2017-10-16 00:33] LABS: Appearance,Urine Clear (Clear); Bilirubin,Urine Negative (Negative); Blood,Urine Small (Negative); Color,Urine Yellow; Glucose,Urine (UA) Negative (Negative); Granular Casts,Urine 3 /lpf (0); Hyaline Casts,Urine 26 /lpf (0-2); Ketones,Urine Negative (Negative); Leukocyte Esterase,Urine Negative (Negative); Mucus,Urine Rare /hpf; Nitrite,Urine Negative (Negative); Protein,Urine Trace (Negative); RBC,Urine 1 /hpf (0-5); Specific Gravity,Urine 1.007 (1.001-1.035); Squamous Epithelial Cell,Urine <1 /hpf (0-4); Urobilinogen,Urine <2.0 mg/dL (<2.0); WBC,Urine <1 /hpf (0-5)
[2017-10-16 00:42] LABS: INR 1.1 (<1.2); Prothrombin Time 10.3 sec (9.0-12.0)
[2017-10-16 00:44] LABS: ALT 62 U/L (21-72); AST 35 U/L (17-59); Albumin 4.1 g/dL (3.5-5.0); Alkaline Phosphatase 87 U/L (38-126); Amylase 38 U/L (30-110); Anion Gap 10 mmol/L; Blood Urea Nitrogen 13 mg/dL (9-20); Calcium 9.7 mg/dL (8.4-10.2); Carbon Dioxide 24 mmol/L (22-30); Chloride 104 mmol/L (98-107); Glucose 163 mg/dL (74-99); Lipase 143 U/L (23-300); Potassium 3.9 mmol/L (3.5-5.1); Sodium 138 mmol/L (137-145); Total Bilirubin 1.3 mg/dL (0.2-1.3); Total Protein 6.6 g/dL (6.3-8.2)
[2017-10-16] MEDS ORDERED: SODIUM CHLORIDE 0.9% 500 ML IV STA (01:03)
--- NOTE | 2017-10-16 01:23 | CT ---
EXAMINATION TYPE: CT abdomen pelvis w con DATE OF EXAM: 10/16/2017 COMPARISON: 08/29/2017 HISTORY: Constipation, pain CT DLP: 1798 mGycm Automated exposure control for dose reduction was used. TECHNIQUE: Helical acquisition of images was performed from the lung bases through the pelvis. CONTRAST: Performed without Oral Contrast and with IV Contrast, patient injected with 100 mL of Omnipaque 300. FINDINGS: Lung bases are clear. There is no pleural effusion. Heart size is normal. Liver appears normal. Bile ducts are not dilated. There are clips from cholecystectomy. Pancreas appe ars normal. Spleen is enlarged and measures 16 cm. There is no adrenal mass. Kidneys show satisfactory contrast opacification. There is no hydronephrosi s. There is no retroperitoneal adenopathy. There is no ascites. I see no intestinal wall thickening. There are no dilated loops. Bladder distends smoothly. Appendix appears normal. There is a first-degree L5-S1 spondylolisthesis with bilateral L5 spondylolysis. There is no compress ion fracture. IMPRESSION: SPONDYLOLYSIS OF L5 WITH FIRST-DEGREE L5-S1 SPONDYLOLISTHESIS. NO EVIDENCE OF CONSTIPATION. NORMAL AP PENDIX. SPLENOMEGALY. NO SIGNIFICANT CHANGE COMPARED TO OLD EXAM.
[2017-10-16] MEDS ORDERED: DICYCLOMINE 10 MG/ML 2 ML AMP IM STA (01:50)
[2017-10-16 02:00] VITALS: BP 170/91; PULSE 69; RESP 16; TEMP 98.6
== END 2017-10-16 02:02 | disposition home or self-care (01) ==
LOC: EC 19:54
DX: R10.9 Unspecified abdominal pain (principal); E11.9 Type 2 diabetes mellitus without complications; I10 Essential (primary) hypertension; G40.909 Epilepsy, unspecified, not intractable, without status epilepticus; G47.30 Sleep apnea, unspecified; F17.200 Nicotine dependence, unspecified, uncomplicated; Z99.89 Dependence on other enabling machines and devices; Z90.49 Acquired absence of other specified parts of digestive tract; Z88.0 Allergy status to penicillin; Z88.8 Allergy status to other drugs, medicaments and biological substances; Z79.4 Long term (current) use of insulin; Z79.899 Other long term (current) drug therapy
CPT/HCPCS: 36415; 80053; 82150; 83690; 85025; 85610; 85730; 81001; 74019; 74177; 99284; 96372; 96374; 96361 ×2; J1170; J0500; Q9967

== ENCOUNTER 2017-10-21 19:00 | Emergency (ER) | payer MEDICARE, OTHER ==
[2017-10-21 19:09] VITALS: BP 172/78; PULSE 76; RESP 18; TEMP 97
--- NOTE | 2017-10-21 19:36 | ED ---
Abdominal Pain HPI - General Chief Complaint: Abdominal Pain Stated Complaint: Constiption Time Seen by Provider: 10/21/17 19:36 Source: patient Mode of arrival: ambulatory Limitations: no limitations - History of Present Illness Initial Comments: Patient presents for constipation. This is a recurrent problem for patient. Patient states last bowel movement was 5 days ago when he was seen in the ER. Patient states symptoms usually resolved by an enema. Patient states he has not tried any medications at home. Patient states he is prescribed medications however has not taken them today. Patient complains of mild abdominal distention and mild diffuse cramping. Denies urinary symptoms. Denies diarrhea. Denies nausea or vomiting. Denies fevers, chills. Patient has a history of cholecystectomy. Patient states he has not been able to find out why he has chronic constipation. MD Complaint: other (Constipation) - Related Data Home Medications Medication Instructions Recorded Confirmed Lisinopril [Zestril] 10 mg PO QAM 06/06/14 10/21/17 Zolpidem Tartrate [Ambien] 10 mg PO HS 06/06/14 10/21/17 Insulin Glargine [Lantus] 100 unit SQ HS 12/17/14 10/21/17 INSULIN LISPRO (HumaLOG) [HumaLOG] See Protocol SQ AC-TID 08/16/15 10/21/17 Divalproex Sodium [Depakote] 500 mg PO TID 01/10/17 10/21/17 Alfuzosin HCl [Alfuzosin HCl ER] 10 mg PO DAILY 10/07/17 10/21/17 Previous Rx's Medication Instructions Recorded Tamsulosin [Flomax] 0.4 mg PO DAILY #7 cap 09/21/17 Allergies Allergy/AdvReac Type Severity Reaction Status Date / Time Penicillins Allergy Unknown Verified 10/21/17 19:48 Childhood clozapine [From Clozaril] AdvReac Severe Aggression Verified 10/21/17 19:48 Review of Systems ROS Statement: Those systems with pertinent positive or pertinent negative responses have been documented in the HPI. ROS Other: All systems not noted in ROS Statement are negative. Constitutional: Denies: fever, chills, weakness Eyes: Denies: vision change ENT: Denies: throat pain Respiratory: Denies: cough, dyspnea Cardiovascular: Denies: chest pain Gastrointestinal: Reports: abdominal pain, constipation. Denies: nausea, vomiting, diarrhea, hematemesis, melena, hematochezia Genitourinary: Denies: urgency, dysuria, frequency, hematuria Musculoskeletal: Denies: back pain Skin: Denies: rash, change in color Neurological: Denies: headache Past Medical History Past Medical History: Asthma, Diabetes Mellitus, GERD/Reflux, Hypertension, Osteoarthritis (OA), Seizure Disorder, Skin Disorder, Sleep Apnea/CPAP/BIPAP Additional Past Medical History / Comment(s): LAST SEIZURE 28 YRS AGO. chronic back pain. DOES NOT USE CPAP. SPINAL STENOSIS, DDD IN BACK, SCOLIOSIS, IBS, poriasis, frequent urination History of Any Multi-Drug Resistant Organisms: None Reported Past Surgical History: Cholecystectomy, Heart Catheterization, Tonsillectomy Additional Past Surgical History / Comment(s): PAIN PROCEDURES. Past Anesthesia/Blood Transfusion Reactions: Motion Sickness Past Psychological History: ADD/ADHD, Schizophrenia Smoking Status: Current some day smoker Past Alcohol Use History: None Reported Past Drug Use History: None Reported - Past Family History Father Family Medical History: Unable to Obtain Additional Family Medical History / Comment(s): Father left home when pt was 5 yrs old. Mother Family Medical History: Myocardial Infarction ([place]) Additional Family Medical History / Comment(s): Mother at age 55yrs of [place]. General Exam - General Exam Comments Initial Comments: Sitting up in bed. No acute distress. Conversing normally. Well-appearing. Does not appear in pain Limitations: no limitations General appearance: alert, in no apparent distress Head exam: Present: atraumatic, normocephalic Eye exam: Present: normal appearance, PERRL, EOMI ENT exam: Present: mucous membranes moist Neck exam: Present: normal inspection Respiratory exam: Present: normal lung sounds bilaterally. Absent: respiratory distress, wheezes, rales Cardiovascular Exam: Present: regular rate, normal rhythm GI/Abdominal exam: Present: soft, distended (Mild), tenderness (Mild diffuse tenderness), normal bowel sounds. Absent: guarding, rebound, rigid, hernia Extremities exam: Present: normal inspection Neurological exam: Present: alert, oriented X3 Psychiatric exam: Present: normal affect, normal mood Skin exam: Present: warm, dry, intact, normal color. Absent: rash Course Vital Signs 10/21/17 19:07 Temperature 97.0 F L Pulse Rate 76 Respiratory 18 Rate Blood Pressure 172/78 O2 Sat by Pulse 96 Oximetry Medical Decision Making - Medical Decision Making Will get x-rays abdomen to rule out obstruction. We'll give enema. X-ray shows no sign of obstruction. Lactulose & mag citrate ordered. Patient had a large bowel movement in the ER, states he feels like he "still has some in there", like to continue to be monitored in the ER. 21:57 Notified by RN patient eloped. Patient did not have an IV. Patient did not express any desire to leave her be discharged or any concerns to myself or any staff members prior to leaving. Disposition Clinical Impression: Constipation Disposition: Left Against Medical Advice Condition: Good Referrals: Brandon Mcpherson MD [Primary Care Provider] - 1-2 days
--- NOTE | 2017-10-21 20:30 | XR ---
EXAMINATION TYPE: XR abdomen complete w decub DATE OF EXAM: 10/21/2017 COMPARISON: 10/15/2017 HISTORY: Abdominal pain TECHNIQUE: 7 views FINDINGS: There is no sign of intestinal obstruction or pneumoperitoneum. Fecal pattern is normal. There are cl ips from cholecystectomy. There is no evidence of a mass. There are no pathologic calcifications over the kidneys. Bony structures are intact. Lung bases are clear. IMPRESSION: Nonacute abdomen. No adverse change compared to old exam.
[2017-10-21] MEDS ORDERED: LACTULOSE 20 GM/30 ML CUP PO ONE (20:48)
[2017-10-21] MEDS ORDERED: ONDANSETRON 4 MG TAB PO STA (20:48)
[2017-10-21] MEDS ORDERED: MAGNESIUM CITRATE 296 ML BOTTLE PO ONE (20:48)
== END 2017-10-21 22:11 | disposition left against medical advice (07) ==
LOC: EC 19:00
DX: K59.00 Constipation, unspecified (principal); E11.9 Type 2 diabetes mellitus without complications; I10 Essential (primary) hypertension; G47.30 Sleep apnea, unspecified; G40.909 Epilepsy, unspecified, not intractable, without status epilepticus; F17.200 Nicotine dependence, unspecified, uncomplicated; Z90.49 Acquired absence of other specified parts of digestive tract; Z88.0 Allergy status to penicillin; Z88.8 Allergy status to other drugs, medicaments and biological substances; Z79.4 Long term (current) use of insulin; Z79.899 Other long term (current) drug therapy
CPT/HCPCS: 74021; 99284

== ENCOUNTER 2017-10-24 14:54 | Emergency (ER) | payer MEDICARE, OTHER ==
[2017-10-24 14:58] VITALS: BP 147/87; PULSE 77; RESP 18; TEMP 97.2
--- NOTE | 2017-10-24 15:31 | ED ---
General Adult HPI - General Chief complaint: Abdominal Pain Stated complaint: Constipated Time Seen by Provider: 10/24/17 14:59 Source: patient, RN notes reviewed Mode of arrival: ambulatory Limitations: no limitations - History of Present Illness Initial comments: 46-year-old male presents to the emergency department with a chief complaint of constipation. He's been dealing with constipation on and off for years. History of IBS. He states that he is currently in the phase when he just continues to be constipated. There has been no nausea or vomiting. He states he feels like he has to go but he is unable to have a bowel movement. He denies any fever chills. He was concerned due to his continued symptoms so he thought that he should be seen. Patient is otherwise feeling well. 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 He denies any other symptoms at this time. He states he just like something to help him be able to have a bowel movement.Patient denies any recent fever, chills, shortness of breath, chest pain, back pain, nausea vomiting, numbness or tingling, dysuria or hematuria, diarrhea, headaches or visual changes, or any other current symptoms. - Related Data Home Medications Medication Instructions Recorded Confirmed Lisinopril [Zestril] 10 mg PO QAM 06/06/14 10/24/17 Zolpidem Tartrate [Ambien] 10 mg PO HS 06/06/14 10/24/17 Insulin Glargine [Lantus] 100 unit SQ HS 12/17/14 10/24/17 INSULIN LISPRO (HumaLOG) [HumaLOG] See Protocol SQ AC-TID 08/16/15 10/24/17 Divalproex Sodium [Depakote] 500 mg PO TID 01/10/17 10/24/17 Alfuzosin HCl [Alfuzosin HCl ER] 10 mg PO DAILY 10/07/17 10/24/17 Cephalexin [Keflex] 500 mg PO TID 10/24/17 10/24/17 Previous Rx's Medication Instructions Recorded Tamsulosin [Flomax] 0.4 mg PO DAILY #7 cap 09/21/17 Allergies Allergy/AdvReac Type Severity Reaction Status Date / Time Penicillins Allergy Unknown Verified 10/24/17 15:42 Childhood clozapine [From Clozaril] AdvReac Severe Aggression Verified 10/24/17 15:42 Review of Systems ROS Statement: Those systems with pertinent positive or pertinent negative responses have been documented in the HPI. ROS Other: All systems not noted in ROS Statement are negative. Past Medical History Past Medical History: Asthma, Diabetes Mellitus, GERD/Reflux, Hypertension, Osteoarthritis (OA), Seizure Disorder, Skin Disorder, Sleep Apnea/CPAP/BIPAP Additional Past Medical History / Comment(s): LAST SEIZURE 28 YRS AGO. chronic back pain. DOES NOT USE CPAP. SPINAL STENOSIS, DDD IN BACK, SCOLIOSIS, IBS, poriasis, frequent urination History of Any Multi-Drug Resistant Organisms: None Reported Past Surgical History: Cholecystectomy, Heart Catheterization, Tonsillectomy Additional Past Surgical History / Comment(s): PAIN PROCEDURES. Past Anesthesia/Blood Transfusion Reactions: Motion Sickness Past Psychological History: ADD/ADHD, Schizophrenia Smoking Status: Current some day smoker Past Alcohol Use History: None Reported Past Drug Use History: None Reported - Past Family History Father Family Medical History: Unable to Obtain Additional Family Medical History / Comment(s): Father left home when pt was 5 yrs old. Mother Family Medical History: Myocardial Infarction ([place]) Additional Family Medical History / Comment(s): Mother at age 55yrs of [place]. General Exam - General Exam Comments Initial Comments: General: The patient is awake and alert, in no distress, and does not appear acutely ill. Eye: Pupils are equal, round and reactive to light, extra-ocular movements are intact; there is normal conjunctiva bilaterally. No signs of icterus. Ears, nose, mouth and throat: There are moist mucous membranes. Neck: The neck is supple, there is no tenderness. Cardiovascular: There is a regular rate and rhythm. No murmur, rub or gallop is appreciated. Respiratory: Lungs are clear to auscultation, respirations are non-labored, breath sounds are equal. No wheezes, stridor, rales, or rhonchi. Gastrointestinal: Soft, non-distended, non-tender abdomen without masses or organomegaly noted. There is no rebound or guarding present. No CVA tenderness. Bowel sounds are unremarkable. Back: There is no tenderness to palpation in the midline. There is no obvious deformity. No rashes noted. Musculoskeletal: Normal ROM, no tenderness, There is no pedal edema. There is no calf tenderness or swelling. Sensation intact. Pulses equal bilaterally 2+. Neurological: CN II-XII intact, There are no obvious motor or sensory deficits. Coordination appears grossly intact. Speech is normal. Skin: Skin is warm and dry and no rashes or lesions are noted. Psychiatric: Cooperative, appropriate mood & affect, normal judgment. Limitations: no limitations Course Vital Signs 10/24/17 14:55 Temperature 97.2 F L Pulse Rate 77 Respiratory 18 Rate Blood Pressure 147/87 O2 Sat by Pulse 96 Oximetry Medical Decision Making - Medical Decision Making 46-year-old male presents emergency department with a chief complaint of constipation. Patient has had workups in the past for this. He states he does not like CAT scan he does not want blood work. He states this is his typical constipation he would just like an enema so that he can go and then he like to go home. We did discuss without that was affected that we will other causes for his continued constipation. He states he'll follow-up with his spring floor service worker for this. He just needs something to help relieve some of his discomfort at this time. Disposition Clinical Impression: Abdominal pain Disposition: HOME SELF-CARE Condition: Stable Instructions: Abdominal Pain (ED) Additional Instructions: Please use medication as discussed. Please follow up with family doctor if symptoms have not improved over the next two days. Please return to the emergency room if your symptoms increase or worsen or for any other concerns. Referrals: Brandon Mcpherson MD [Primary Care Provider] - 1-2 days Time of Disposition: 16:20
--- NOTE | 2017-10-24 15:46 | XR ---
EXAMINATION TYPE: XR abdomen 2V DATE OF EXAM: 10/24/2017 COMPARISON: 10/21/2017 INDICATION: Pain chronic constipation TECHNIQUE: Single view abdomen supine FINDINGS: There is a normal bowel gas pattern. No significant fecal retention is evident. Psoas margins are normal. No organomegaly is present. Cholecystectomy clips are in the right upper quadrant. IMPRESSION: 1. Unremarkable Abdomen
== END 2017-10-24 16:38 | disposition home or self-care (01) ==
LOC: EC 14:54
DX: R10.9 Unspecified abdominal pain (principal); K59.00 Constipation, unspecified; I10 Essential (primary) hypertension; E11.9 Type 2 diabetes mellitus without complications; G40.909 Epilepsy, unspecified, not intractable, without status epilepticus; F17.200 Nicotine dependence, unspecified, uncomplicated; Z79.4 Long term (current) use of insulin; Z79.899 Other long term (current) drug therapy; Z88.0 Allergy status to penicillin; Z88.8 Allergy status to other drugs, medicaments and biological substances; Z87.448 Personal history of other diseases of urinary system; Z90.49 Acquired absence of other specified parts of digestive tract
CPT/HCPCS: 74019; 99284

== ENCOUNTER 2017-10-28 02:48 | Emergency (ER) | payer MEDICARE, OTHER ==
[2017-10-28 02:56] VITALS: RESP 18
[2017-10-28] MEDS ORDERED: SENNOSIDES-DOCUSATE SODIUM 1 EACH TAB PO STA (03:05)
--- NOTE | 2017-10-28 03:13 | ED ---
Abdominal Pain HPI - General Chief Complaint: Abdominal Pain Stated Complaint: cosntipation Time Seen by Provider: 10/28/17 02:56 Source: patient, RN notes reviewed Mode of arrival: ambulatory Limitations: no limitations - History of Present Illness Initial Comments: This is a 46-year-old male who presents to the emergency department with chief complaint of constipation. Patient states that he suffers from on and off constipation for the last couple of years. He states that he had a small bowel movement prior to arrival but still feels abdominal pressure and discomfort. He states that this discomfort is normal for him when he is constipated. He states he was seen here twice previously and was given enemas which helped him have a bowel movement. Patient denies any nausea or vomiting, fevers or chills , diarrhea, chest pain or shortness of breath. - Related Data Home Medications Medication Instructions Recorded Confirmed Lisinopril [Zestril] 10 mg PO QAM 06/06/14 10/24/17 Zolpidem Tartrate [Ambien] 10 mg PO HS 06/06/14 10/24/17 Insulin Glargine [Lantus] 100 unit SQ HS 12/17/14 10/24/17 INSULIN LISPRO (HumaLOG) [HumaLOG] See Protocol SQ AC-TID 08/16/15 10/24/17 Divalproex Sodium [Depakote] 500 mg PO TID 01/10/17 10/24/17 Alfuzosin HCl [Alfuzosin HCl ER] 10 mg PO DAILY 10/07/17 10/24/17 Cephalexin [Keflex] 500 mg PO TID 10/24/17 10/24/17 Previous Rx's Medication Instructions Recorded Tamsulosin [Flomax] 0.4 mg PO DAILY #7 cap 09/21/17 Bisacodyl [Dulcolax] 5 mg PO DAILY #10 tablet. 10/28/17 Allergies Allergy/AdvReac Type Severity Reaction Status Date / Time Penicillins Allergy Unknown Verified 10/24/17 15:42 Childhood clozapine [From Clozaril] AdvReac Severe Aggression Verified 10/24/17 15:42 Review of Systems ROS Statement: Those systems with pertinent positive or pertinent negative responses have been documented in the HPI. ROS Other: All systems not noted in ROS Statement are negative. Past Medical History Past Medical History: Asthma, Diabetes Mellitus, GERD/Reflux, Hypertension, Osteoarthritis (OA), Seizure Disorder, Skin Disorder, Sleep Apnea/CPAP/BIPAP Additional Past Medical History / Comment(s): LAST SEIZURE 28 YRS AGO. chronic back pain. DOES NOT USE CPAP. SPINAL STENOSIS, DDD IN BACK, SCOLIOSIS, IBS, poriasis, frequent urination History of Any Multi-Drug Resistant Organisms: None Reported Past Surgical History: Cholecystectomy, Heart Catheterization, Tonsillectomy Additional Past Surgical History / Comment(s): PAIN PROCEDURES. Past Anesthesia/Blood Transfusion Reactions: Motion Sickness Past Psychological History: ADD/ADHD, Schizophrenia Smoking Status: Current some day smoker Past Alcohol Use History: None Reported Past Drug Use History: None Reported - Past Family History Father Family Medical History: Unable to Obtain Additional Family Medical History / Comment(s): Father left home when pt was 5 yrs old. Mother Family Medical History: Myocardial Infarction ([place]) Additional Family Medical History / Comment(s): Mother at age 55yrs of [place]. General Exam - General Exam Comments Initial Comments: General: Awake and alert, well-developed; in no apparent distress. HEENT: Head atraumatic, normocephalic. Pupils are equal, round and reactive to light. Extraocular movements intact. Oropharynx moist without erythema or exudate. Neck: Supple. Normal ROM. Cardiovascular: Regular rate and rhythm. No murmurs, rubs or gallops. Chest symmetrical. Respiratory: Lungs clear to auscultation bilaterally. No wheezes, rales or rhonchi. Normal respiratory effort with no use of accessory muscles. Abdomen: Soft, non-tender, non-distended. No rigidity, rebound or guarding. Normal bowel sounds in all 4 quadrants. Musculoskeletal: Normal ROM, no tenderness bilateral upper and lower extremities. Ambulating normally. Skin: [place], warm and dry without rashes or lesions. Neurological: Alert and oriented x3. CN II-XII grossly intact. Speech is fluent and answers are appropriate. No focal neuro deficits. Limitations: no limitations Course Vital Signs 10/28/17 02:51 Temperature 98.0 F Pulse Rate 63 Respiratory 18 Rate Blood Pressure 134/79 O2 Sat by Pulse 98 Oximetry Medical Decision Making - Medical Decision Making This is a 46-year-old male who presents to the emergency department with chief complaint of constipation. Patient was seen here 2 times previously in the last 2 weeks with the same complaint. He was given enemas which he states aided in relief. on October 16, a computed tomography scan was obtained that revealed a non-acute abdomen with no evidence for constipation. KUB was repeated today which revealed non-acute abdomen with no evidence of constipation. Patient's vital signs have been stable and he is in no acute distress. He will be started on stool softeners as he states that he has been straining to have a bowel movement. He'll be discharged home. He is in agreement and voices understanding. All questions answered. - Radiology Data Radiology results: report reviewed X-ray KUB impression: Nonacute abdomen. No evidence of constipation. No change. Disposition Clinical Impression: Abdominal pain, Constipation Disposition: HOME SELF-CARE Condition: Good Instructions: Abdominal Pain (ED) Additional Instructions: Please take medications as prescribed. Please follow up with primary care provider within 1-2 days. Return to emergency department if symptoms should worsen or any concerns arise. Prescriptions: Bisacodyl [Dulcolax] 5 mg PO DAILY #10 tablet.dr Referrals: Brandon Mchperson MD [Primary Care Provider] - 1-2 days Time of Disposition: 03:53
--- NOTE | 2017-10-28 03:34 | XR ---
EXAMINATION TYPE: XR KUB DATE OF EXAM: 10/28/2017 COMPARISON: 10/24/2017 HISTORY: Constipation TECHNIQUE: 2 views FINDINGS: There is no sign of intestinal obstruction or pneumoperitoneum. Fecal pattern is normal. Th ere are clips from cholecystectomy. There is no sign of a mass. Lung bases are clear. IMPRESSION: Nonacute abdomen. No evidence of constipation. No change.
[2017-10-28 04:07] VITALS: BP 139/80; PULSE 62; TEMP 97.8
== END 2017-10-28 04:07 | disposition home or self-care (01) ==
LOC: EC 02:48
DX: K59.00 Constipation, unspecified (principal); R10.9 Unspecified abdominal pain; E11.9 Type 2 diabetes mellitus without complications; I10 Essential (primary) hypertension; G40.909 Epilepsy, unspecified, not intractable, without status epilepticus; F17.200 Nicotine dependence, unspecified, uncomplicated; Z90.49 Acquired absence of other specified parts of digestive tract; Z79.4 Long term (current) use of insulin; Z79.899 Other long term (current) drug therapy; Z88.0 Allergy status to penicillin; Z88.8 Allergy status to other drugs, medicaments and biological substances
CPT/HCPCS: 74018; 99284

== ENCOUNTER 2017-10-30 13:39 | Emergency (ER) | payer MEDICARE, OTHER ==
[2017-10-30] MEDS ORDERED: SODIUM CHLORIDE 0.9% 1,000 ML IV STA ×2 (14:52)
[2017-10-30] MEDS ORDERED: methylPREDNISolone SOD SUCCI 125 MG/2 ML VIAL IV STA (14:53)
[2017-10-30] MEDS ORDERED: SENNOSIDES-DOCUSATE SODIUM 1 EACH TAB PO STA (14:53)
[2017-10-30] MEDS ORDERED: diphenhydrAMINE 50 MG/ML 1 ML VIAL IVP STA (14:53)
[2017-10-30] MEDS ORDERED: FAMOTIDINE 20 MG/2 ML VIAL IV STA (14:53)
--- NOTE | 2017-10-30 15:17 | ED ---
General Adult HPI - General Chief complaint: Dizziness Stated complaint: Dizzy,hands numb Time Seen by Provider: 10/30/17 14:38 Source: patient, RN notes reviewed, old records reviewed Mode of arrival: ambulatory Limitations: no limitations - History of Present Illness Initial comments: This is a 46-year-old male the ER for evaluation. Patient with complaints of ALLERGIC reaction constipation. Patient has history of diabetes psychiatric illness. States that medication as prescribed. Patient states he does have chronic issues with going to the bathroom. Patient has no nausea or vomiting. No abdominal pain. He does still feel constipated with feels lightheaded dizzy weak, generalized itchiness and pruritus. Patient's issues of bowel movements is an ongoing issue, issues with constipation ongoing. Patient does does have a follow-up with GI this week - Related Data Home Medications Medication Instructions Recorded Confirmed Lisinopril [Zestril] 10 mg PO QAM 06/06/14 10/30/17 Zolpidem Tartrate [Ambien] 10 mg PO HS 06/06/14 10/30/17 Insulin Glargine [Lantus] 100 unit SQ HS 12/17/14 10/30/17 INSULIN LISPRO (HumaLOG) [HumaLOG] See Protocol SQ AC-TID 08/16/15 10/30/17 Divalproex Sodium [Depakote] 500 mg PO TID 01/10/17 10/30/17 Alfuzosin HCl [Alfuzosin HCl ER] 10 mg PO DAILY 10/07/17 10/30/17 Sulfamethox-Tmp 800-160Mg [Bactrim 1 tab PO Q12HR 10/30/17 10/30/17 DS 800-160 mg] Previous Rx's Medication Instructions Recorded Tamsulosin [Flomax] 0.4 mg PO DAILY #7 cap 09/21/17 Allergies Allergy/AdvReac Type Severity Reaction Status Date / Time Penicillins Allergy Unknown Verified 10/30/17 14:14 Childhood clozapine [From Clozaril] AdvReac Severe Aggression Verified 10/30/17 14:14 Review of Systems ROS Statement: Those systems with pertinent positive or pertinent negative responses have been documented in the HPI. ROS Other: All systems not noted in ROS Statement are negative. Past Medical History Past Medical History: Asthma, Diabetes Mellitus, GERD/Reflux, Hypertension, Osteoarthritis (OA), Seizure Disorder, Skin Disorder, Sleep Apnea/CPAP/BIPAP Additional Past Medical History / Comment(s): LAST SEIZURE 28 YRS AGO. chronic back pain. DOES NOT USE CPAP. SPINAL STENOSIS, DDD IN BACK, SCOLIOSIS, IBS, poriasis, frequent urination History of Any Multi-Drug Resistant Organisms: None Reported Past Surgical History: Cholecystectomy, Heart Catheterization, Tonsillectomy Additional Past Surgical History / Comment(s): PAIN PROCEDURES. Past Anesthesia/Blood Transfusion Reactions: Motion Sickness Past Psychological History: ADD/ADHD, Schizophrenia Smoking Status: Current some day smoker Past Alcohol Use History: None Reported Past Drug Use History: None Reported - Past Family History Father Family Medical History: Unable to Obtain Additional Family Medical History / Comment(s): Father left home when pt was 5 yrs old. Mother Family Medical History: Myocardial Infarction ([place]) Additional Family Medical History / Comment(s): Mother at age 55yrs of [place]. General Exam Limitations: no limitations General appearance: alert, in no apparent distress, anxious Head exam: Present: atraumatic, normocephalic, normal inspection Eye exam: Present: normal appearance, PERRL, EOMI. Absent: scleral icterus, conjunctival injection, periorbital swelling ENT exam: Present: normal exam, mucous membranes moist Neck exam: Present: normal inspection. Absent: tenderness, meningismus, lymphadenopathy Respiratory exam: Present: normal lung sounds bilaterally. Absent: respiratory distress, wheezes, rales, rhonchi, stridor Cardiovascular Exam: Present: regular rate, normal rhythm, normal heart sounds. Absent: systolic murmur, diastolic murmur, rubs, gallop, clicks GI/Abdominal exam: Present: soft, normal bowel sounds. Absent: distended, tenderness, guarding, rebound, rigid Extremities exam: Present: normal inspection, full ROM, normal capillary refill. Absent: tenderness, pedal edema, joint swelling, calf tenderness Back exam: Present: normal inspection Neurological exam: Present: alert, oriented X3, CN II-XII intact Psychiatric exam: Present: normal affect, normal mood Skin exam: Present: warm, dry, intact, normal color. Absent: rash Course Vital Signs 10/30/17 10/30/17 10/30/17 13:42 15:20 16:32 Temperature 98.1 F Pulse Rate 80 71 71 Respiratory 20 18 18 Rate Blood Pressure 159/77 134/70 152/76 O2 Sat by Pulse 100 96 97 Oximetry EKG Findings - EKG Comments: EKG Findings:: Shows normal sinus rhythm at 73, NM 190, QRS 90, QTc 460 Medical Decision Making - Medical Decision Making 46 male the ER for evaluation regarding chronic constipation. Patient given bowel regimen here in the ER. Will be discharged home with similar. Patient also complaining of neuropathy, will give medication for neuropathy. Patient can be discharged home - Lab Data Result diagrams: 10/30/17 15:05 10/30/17 15:05 Lab Results 10/30/17 10/30/17 10/30/17 Range/Units 15:05 15:05 15:05 WBC 6.4 (3.8-10.6) k/uL RBC 4.41 (4.30-5.90) m/uL Hgb 12.7 L (13.0-17.5) gm/dL Hct 35.6 L (39.0-53.0) % MCV 80.7 (80.0-100.0) fL MCH 28.8 (25.0-35.0) pg MCHC 35.7 (31.0-37.0) g/dL RDW 14.2 (11.5-15.5) % Plt Count 145 L (150-450) k/uL Neutrophils % 59 % Lymphocytes % 31 % Monocytes % 5 % Eosinophils % 2 % Basophils % 1 % Neutrophils # 3.8 (1.3-7.7) k/uL Lymphocytes # 2.0 (1.0-4.8) k/uL Monocytes # 0.3 (0-1.0) k/uL Eosinophils # 0.1 (0-0.7) k/uL Basophils # 0.1 (0-0.2) k/uL Hyperchromasia Moderate Poikilocytosis Slight Sodium 140 (137-145) mmol/L Potassium 4.2 (3.5-5.1) mmol/L Chloride 106 (98-107) mmol/L Carbon Dioxide 24 (22-30) mmol/L Anion Gap 10 mmol/L BUN 13 (9-20) mg/dL Creatinine 0.90 (0.66-1.25) mg/dL Est GFR (MDRD) Af Amer >60 (>60 ml/min/1.73 sqM) Est GFR (MDRD) Non-Af >60 (>60 ml/min/1.73 sqM) Glucose 189 H (74-99) mg/dL Calcium 9.3 (8.4-10.2) mg/dL Phosphorus 3.2 (2.5-4.5) mg/dL Magnesium 1.9 (1.6-2.3) mg/dL Total Bilirubin 1.2 (0.2-1.3) mg/dL AST 30 (17-59) U/L ALT 50 (21-72) U/L Alkaline Phosphatase 84 (38-126) U/L Total Creatine Kinase 220 H (55-170) U/L CK-MB (CK-2) 2.1 (0.0-2.4) ng/mL Troponin I <0.012 (0.000-0.034) ng/mL Total Protein 6.1 L (6.3-8.2) g/dL Albumin 3.7 (3.5-5.0) g/dL Urine Color Urine Appearance (Clear) Urine pH (5.0-8.0) Ur Specific Treece (1.001-1.035) Urine Protein (Negative) Urine Glucose (UA) (Negative) Urine Ketones (Negative) Urine Blood (Negative) Urine Nitrite (Negative) Urine Bilirubin (Negative) Urine Urobilinogen (<2.0) mg/dL Ur Leukocyte Esterase (Negative) Urine RBC (0-5) /hpf Urine WBC (0-5) /hpf Urine Mucus (None) /hpf 10/30/17 Range/Units 15:05 WBC (3.8-10.6) k/uL RBC (4.30-5.90) m/uL Hgb (13.0-17.5) gm/dL Hct (39.0-53.0) % MCV (80.0-100.0) fL MCH (25.0-35.0) pg MCHC (31.0-37.0) g/dL RDW (11.5-15.5) % Plt Count (150-450) k/uL Neutrophils % % Lymphocytes % % Monocytes % % Eosinophils % % Basophils % % Neutrophils # (1.3-7.7) k/uL Lymphocytes # (1.0-4.8) k/uL Monocytes # (0-1.0) k/uL Eosinophils # (0-0.7) k/uL Basophils # (0-0.2) k/uL Hyperchromasia Poikilocytosis Sodium (137-145) mmol/L Potassium (3.5-5.1) mmol/L Chloride (98-107) mmol/L Carbon Dioxide (22-30) mmol/L Anion Gap mmol/L BUN (9-20) mg/dL Creatinine (0.66-1.25) mg/dL Est GFR (MDRD) Af Amer (>60 ml/min/1.73 sqM) Est GFR (MDRD) Non-Af (>60 ml/min/1.73 sqM) Glucose (74-99) mg/dL Calcium (8.4-10.2) mg/dL Phosphorus (2.5-4.5) mg/dL Magnesium (1.6-2.3) mg/dL Total Bilirubin (0.2-1.3) mg/dL AST (17-59) U/L ALT (21-72) U/L Alkaline Phosphatase (38-126) U/L Total Creatine Kinase (55-170) U/L CK-MB (CK-2) (0.0-2.4) ng/mL Troponin I (0.000-0.034) ng/mL Total Protein (6.3-8.2) g/dL Albumin (3.5-5.0) g/dL Urine Color Yellow Urine Appearance Clear (Clear) Urine pH 5.5 (5.0-8.0) Ur Specific Treece 1.016 (1.001-1.035) Urine Protein Trace H (Negative) Urine Glucose (UA) 4+ H (Negative) Urine Ketones Negative (Negative) Urine Blood Small H (Negative) Urine Nitrite Negative (Negative) Urine Bilirubin Negative (Negative) Urine Urobilinogen <2.0 (<2.0) mg/dL Ur Leukocyte Esterase Negative (Negative) Urine RBC 1 (0-5) /hpf Urine WBC 1 (0-5) /hpf Urine Mucus Occasional H (None) /hpf - Radiology Data Radiology results: report reviewed (X-ray abdominal series chest negative), image reviewed Disposition Clinical Impression: Constipation, Urinary frequency, Abdominal pain, Paresthesia, Radiculopathy Disposition: HOME SELF-CARE Condition: Good Instructions: Constipation (ED), Diabetic Peripheral Neuropathy (ED) Referrals: None,Stated [Primary Care Provider] - 1-2 days
[2017-10-30 15:31] VITALS: RESP 18
[2017-10-30 15:34] LABS: Basophils # (A) 0.1 k/uL (0-0.2); Basophils % (A) 1 %; Eosinophils # (A) 0.1 k/uL (0-0.7); Eosinophils % (A) 2 %; HCT 35.6 % (39.0-53.0); HGB 12.7 gm/dL (13.0-17.5); Hyperchromasia Moderate; Lymphocytes % (A) 31 %; MCH 28.8 pg (25.0-35.0); MCHC 35.7 g/dL (31.0-37.0); MCV 80.7 fL (80.0-100.0); Mean Platelet Volume 7.6; Monocytes # (A) 0.3 k/uL (0-1.0); Monocytes % (A) 5 %; Neutrophils # (A) 3.8 k/uL (1.3-7.7); Neutrophils % (A) 59 %; Platelet Count 145 k/uL (150-450); Poikilocytosis Slight; RBC 4.41 m/uL (4.30-5.90); RDW 14.2 % (11.5-15.5); WBC 6.4 k/uL (3.8-10.6)
[2017-10-30 15:44] LABS: Appearance,Urine Clear (Clear); Bilirubin,Urine Negative (Negative); Blood,Urine Small (Negative); Color,Urine Yellow; Glucose,Urine (UA) 4+ (Negative); Ketones,Urine Negative (Negative); Leukocyte Esterase,Urine Negative (Negative); Mucus,Urine Occasional /hpf; PH, Urine 5.5 (5.0-8.0); Protein,Urine Trace (Negative); RBC,Urine 1 /hpf (0-5); Specific Gravity,Urine 1.016 (1.001-1.035); Urobilinogen,Urine <2.0 mg/dL (<2.0); WBC,Urine 1 /hpf (0-5)
--- NOTE | 2017-10-30 15:46 | XR ---
EXAMINATION TYPE: XR abdomen acute w cxr DATE OF EXAM: 10/30/2017 COMPARISON: NONE HISTORY: Pain TECHNIQUE: Single view of the chest and 2 views of the abdomen are submitted. FINDINGS: Single view of the chest fails demonstrate evidence for acute pulmonary disease. There is no evidence for pneumoperitoneum. The bowel gas pattern is unremarkable as there is air throughout nondilated small and large bowel. No sizeable air fluid levels.No mass effects are seen. No unusual calcifications. IMPRESSION: 1. Unremarkable study.
[2017-10-30 15:48] LABS: ALT 50 U/L (21-72); AST 30 U/L (17-59); Albumin 3.7 g/dL (3.5-5.0); Alkaline Phosphatase 84 U/L (38-126); Anion Gap 10 mmol/L; Blood Urea Nitrogen 13 mg/dL (9-20); Calcium 9.3 mg/dL (8.4-10.2); Carbon Dioxide 24 mmol/L (22-30); Chloride 106 mmol/L (98-107); Glucose 189 mg/dL (74-99); Phosphorus 3.2 mg/dL (2.5-4.5); Potassium 4.2 mmol/L (3.5-5.1); Sodium 140 mmol/L (137-145); Total Bilirubin 1.2 mg/dL (0.2-1.3); Total Protein 6.1 g/dL (6.3-8.2)
[2017-10-30 15:57] LABS: Creatine Kinase 220 U/L (55-170)
[2017-10-30 16:10] LABS: Creatine Kinase MB 2.1 ng/mL (0.0-2.4); Troponin I <0.012 ng/mL (0.000-0.034)
[2017-10-30] MEDS ORDERED: MAGNESIUM CITRATE 296 ML BOTTLE PO ONE (16:59)
[2017-10-30 17:18] VITALS: BP 151/87; PULSE 76; TEMP 97
== END 2017-10-30 17:29 | disposition home or self-care (01) ==
LOC: EC 13:39
DX: M54.10 Radiculopathy, site unspecified (principal); K59.00 Constipation, unspecified; R35.0 Frequency of micturition; L29.9 Pruritus, unspecified; I10 Essential (primary) hypertension; E11.40 Type 2 diabetes mellitus with diabetic neuropathy, unspecified; G40.909 Epilepsy, unspecified, not intractable, without status epilepticus; G47.30 Sleep apnea, unspecified; F17.200 Nicotine dependence, unspecified, uncomplicated; Z79.4 Long term (current) use of insulin; Z79.899 Other long term (current) drug therapy; Z88.0 Allergy status to penicillin; Z88.8 Allergy status to other drugs, medicaments and biological substances; Z90.49 Acquired absence of other specified parts of digestive tract
CPT/HCPCS: 99284; 96374; 96375 ×2; 96361 ×2; 36415; 93005; 80053; 82550; 82553; 83735; 84100; 84484; 85025; 81001; 87086; 74022; J1200; J2930

== ENCOUNTER → 2017-11-01 | Outpatient (CLI) | payer MEDICARE, OTHER ==
--- NOTE | 2017-11-01 10:56 | XR ---
EXAMINATION TYPE: XR foot complete bilateral DATE OF EXAM: 11/01/2017 COMPARISON: NONE HISTORY: Osteomyelitis left great toe, possible fracture right great toe TECHNIQUE: Bilateral feet 3 projections each FINDINGS: Right foot: No acute fractures are evident. The right great toe appears intact. Joint space s appear preserved. Hallux valgus deformity of the left great toe is present. No suspicious cortical erosion is evident s uggest osteomyelitis by radiograph. If there is continued suspicion, a three-phase bone scan of the f eet could be performed. IMPRESSION: 1. No acute suspicious changes for acute osteomyelitis. 2. No suspicious fracture great toe
== END | disposition home or self-care (01) ==
LOC: LABWHC1 09:39
PROVIDERS: ATTEND Podiatrist
DX: S92.401A Displaced unspecified fracture of right great toe, initial encounter for closed fracture (principal); M86.8X8 Other osteomyelitis, other site; M79.604 Pain in right leg; M79.605 Pain in left leg

== ENCOUNTER 2017-11-03 04:00 | Observation (INO) | payer MEDICARE, OTHER ==
[2017-11-03] MEDS ORDERED: ASPIRIN 81 MG PO STA (04:24)
[2017-11-03] MEDS ORDERED: NITROGLYCERIN OINT 1 INCH/GM PACKET TOPICAL STA (04:24)
--- NOTE | 2017-11-03 04:27 | ED ---
General Adult HPI - General Chief complaint: Chest Pain Stated complaint: Chest Pain Time Seen by Provider: 11/03/17 04:00 Source: patient, family, RN notes reviewed Mode of arrival: ambulatory Limitations: no limitations - History of Present Illness Initial comments: This is a 47-year-old male with past medical history significant for diabetes and hypertension. Patient comes in today complaining that he has some tingling in his right hand though he has normal sensation. Patient states she's also got right-sided chest pain. Patient denies any diaphoresis. Patient denies nausea vomiting diarrhea. Patient denies any fever chills or cough. Patient denies any left-sided chest pain. Patient denies any dysuria hematuria urinary frequency. - Related Data Home Medications Medication Instructions Recorded Confirmed Lisinopril [Zestril] 10 mg PO QAM 06/06/14 11/03/17 Zolpidem Tartrate [Ambien] 10 mg PO HS 06/06/14 11/03/17 Insulin Glargine [Lantus] 100 unit SQ HS 12/17/14 11/03/17 INSULIN LISPRO (HumaLOG) [HumaLOG] See Protocol SQ AC-TID 08/16/15 11/03/17 Divalproex Sodium [Depakote] 500 mg PO TID 01/10/17 11/03/17 Alfuzosin HCl [Alfuzosin HCl ER] 10 mg PO DAILY 10/07/17 11/03/17 Sulfamethox-Tmp 800-160Mg [Bactrim 1 tab PO Q12HR 10/30/17 11/03/17 DS 800-160 mg] Previous Rx's Medication Instructions Recorded Tamsulosin [Flomax] 0.4 mg PO DAILY #7 cap 09/21/17 Gabapentin [Neurontin] 100 mg PO BID #30 cap 10/30/17 Polyethylene Glycol 3350 [Miralax] 17 gm PO DAILY #14 packet 10/30/17 Allergies Allergy/AdvReac Type Severity Reaction Status Date / Time bisacodyl Allergy dizziness Verified 11/03/17 04:08 [From Dulcolax (bisacodyl)] gabapentin Allergy seizures Verified 11/03/17 04:08 Penicillins Allergy Unknown Verified 11/03/17 04:08 Childhood clozapine [From Clozaril] AdvReac Severe Aggression Verified 11/03/17 04:08 Review of Systems ROS Statement: Those systems with pertinent positive or pertinent negative responses have been documented in the HPI. ROS Other: All systems not noted in ROS Statement are negative. Past Medical History Past Medical History: Asthma, Diabetes Mellitus, GERD/Reflux, Hypertension, Osteoarthritis (OA), Seizure Disorder, Skin Disorder, Sleep Apnea/CPAP/BIPAP Additional Past Medical History / Comment(s): LAST SEIZURE 28 YRS AGO. chronic back pain. DOES NOT USE CPAP. SPINAL STENOSIS, DDD IN BACK, SCOLIOSIS, IBS, poriasis, frequent urination History of Any Multi-Drug Resistant Organisms: None Reported Past Surgical History: Cholecystectomy, Heart Catheterization, Tonsillectomy Additional Past Surgical History / Comment(s): PAIN PROCEDURES. Past Anesthesia/Blood Transfusion Reactions: Motion Sickness Past Psychological History: ADD/ADHD, Schizophrenia Smoking Status: Current some day smoker Past Alcohol Use History: None Reported Past Drug Use History: None Reported - Past Family History Father Family Medical History: Unable to Obtain Additional Family Medical History / Comment(s): Father left home when pt was 5 yrs old. Mother Family Medical History: No Reported History Additional Family Medical History / Comment(s): Mother at age 55yrs of [place]. General Exam - General Exam Comments Initial Comments: nGENERAL: Patient is well-developed and well-nourished. Patient is nontoxic and well- hydrated and is in no acute distress. ENT: Neck is soft and supple. No significant lymphadenopathy is noted. Oropharynx is clear. Moist mucous membranes. Neck has full range of motion without eliciting any pain. EYES: The sclera were anicteric and conjunctiva were pink and moist. Extraocular movements were intact and pupils were equal round and reactive to light. Eyelids were unremarkable. PULMONARY: Unlabored respirations. Good breath sounds bilaterally. No audible rales rhonchi or wheezing was noted. CARDIOVASCULAR: There is a regular rate and rhythm without any murmurs gallops or rubs. ABDOMEN: Soft and nontender with normal bowel sounds. No palpable organomegaly was noted. There is no palpable pulsatile mass. SKIN: Skin is clear with no lesions or rashes and otherwise unremarkable. NEUROLOGIC: Patient is alert and oriented x3. Cranial nerves II through XII are grossly intact. Motor and sensory are also intact. Normal speech, volume and content. Symmetrical smile. Patient has an NIH of 0 MUSCULOSKELETAL: Normal extremities with adequate strength and full range of motion. No lower extremity swelling or edema. No calf tenderness. LYMPHATICS: No significant lymphadenopathy is noted PSYCHIATRIC: Normal psychiatric evaluation. Limitations: no limitations Course Vital Signs 11/03/17 11/03/17 11/03/17 04:01 04:47 06:09 Temperature 97.7 F 97.6 F Pulse Rate 68 87 63 Respiratory 20 18 18 Rate Blood Pressure 138/77 141/73 126/60 O2 Sat by Pulse 98 100 100 Oximetry Medical Decision Making - Medical Decision Making Patient's EKG shows normal sinus rhythm at 62 bpm AL interval 184 QRS is 116 QT interval 440 QTC is 446 per patient's EKG shows no ST segment elevation or depression or T wave abnormalities are noted. Chest x-ray shows no acute abnormalities. Patient's chest pain is relieved at this point. I will admit the patient. I will consult [facility] hospitalist and admit the patient and consult cardiology. - Lab Data Result diagrams: 11/03/17 04:45 11/03/17 04:45 Lab Results 11/03/17 11/03/17 11/03/17 Range/Units 04:45 04:45 04:45 WBC 6.1 (3.8-10.6) k/uL RBC 4.41 (4.30-5.90) m/uL Hgb 12.5 L (13.0-17.5) gm/dL Hct 35.0 L (39.0-53.0) % MCV 79.3 L (80.0-100.0) fL MCH 28.4 (25.0-35.0) pg MCHC 35.8 (31.0-37.0) g/dL RDW 13.8 (11.5-15.5) % Plt Count 132 L (150-450) k/uL Neutrophils % 57 % Lymphocytes % 34 % Monocytes % 5 % Eosinophils % 2 % Basophils % 1 % Neutrophils # 3.5 (1.3-7.7) k/uL Lymphocytes # 2.1 (1.0-4.8) k/uL Monocytes # 0.3 (0-1.0) k/uL Eosinophils # 0.1 (0-0.7) k/uL Basophils # 0.1 (0-0.2) k/uL Hyperchromasia Slight PT (9.0-12.0) sec INR (<1.2) APTT (22.0-30.0) sec Sodium 141 (137-145) mmol/L Potassium 4.0 (3.5-5.1) mmol/L Chloride 108 H (98-107) mmol/L Carbon Dioxide 23 (22-30) mmol/L Anion Gap 10 mmol/L BUN 9 (9-20) mg/dL Creatinine 0.82 (0.66-1.25) mg/dL Est GFR (MDRD) Af Amer >60 (>60 ml/min/1.73 sqM) Est GFR (MDRD) Non-Af >60 (>60 ml/min/1.73 sqM) Glucose 170 H (74-99) mg/dL Calcium 9.3 (8.4-10.2) mg/dL Magnesium 1.9 (1.6-2.3) mg/dL Total Bilirubin 1.4 H (0.2-1.3) mg/dL AST 35 (17-59) U/L ALT 62 (21-72) U/L Alkaline Phosphatase 98 (38-126) U/L Total Creatine Kinase 261 H (55-170) U/L CK-MB (CK-2) 3.1 H* (0.0-2.4) ng/mL CK-MB (CK-2) Rel Index 1.2 Troponin I <0.012 (0.000-0.034) ng/mL Total Protein 6.1 L (6.3-8.2) g/dL Albumin 3.7 (3.5-5.0) g/dL 11/03/17 Range/Units 04:45 WBC (3.8-10.6) k/uL RBC (4.30-5.90) m/uL Hgb (13.0-17.5) gm/dL Hct (39.0-53.0) % MCV (80.0-100.0) fL MCH (25.0-35.0) pg MCHC (31.0-37.0) g/dL RDW (11.5-15.5) % Plt Count (150-450) k/uL Neutrophils % % Lymphocytes % % Monocytes % % Eosinophils % % Basophils % % Neutrophils # (1.3-7.7) k/uL Lymphocytes # (1.0-4.8) k/uL Monocytes # (0-1.0) k/uL Eosinophils # (0-0.7) k/uL Basophils # (0-0.2) k/uL Hyperchromasia PT 10.3 (9.0-12.0) sec INR 1.1 (<1.2) APTT 24.1 (22.0-30.0) sec Sodium (137-145) mmol/L Potassium (3.5-5.1) mmol/L Chloride (98-107) mmol/L Carbon Dioxide (22-30) mmol/L Anion Gap mmol/L BUN (9-20) mg/dL Creatinine (0.66-1.25) mg/dL Est GFR (MDRD) Af Amer (>60 ml/min/1.73 sqM) Est GFR (MDRD) Non-Af (>60 ml/min/1.73 sqM) Glucose (74-99) mg/dL Calcium (8.4-10.2) mg/dL Magnesium (1.6-2.3) mg/dL Total Bilirubin (0.2-1.3) mg/dL AST (17-59) U/L ALT (21-72) U/L Alkaline Phosphatase (38-126) U/L Total Creatine Kinase (55-170) U/L CK-MB (CK-2) (0.0-2.4) ng/mL CK-MB (CK-2) Rel Index Troponin I (0.000-0.034) ng/mL Total Protein (6.3-8.2) g/dL Albumin (3.5-5.0) g/dL Disposition Clinical Impression: Chest pain Disposition: ADMITTED IP TO THIS HOSP Referrals: Brandon Mcpherson MD [Primary Care Provider] - 1-2 days Time of Disposition: 06:22
[2017-11-03 05:04] LABS: INR 1.1 (<1.2); Partial Thromboplastin Time 24.1 sec (22.0-30.0); Prothrombin Time 10.3 sec (9.0-12.0)
[2017-11-03 05:10] LABS: Basophils # (A) 0.1 k/uL (0-0.2); Basophils % (A) 1 %; Eosinophils # (A) 0.1 k/uL (0-0.7); Eosinophils % (A) 2 %; HGB 12.5 gm/dL (13.0-17.5); Hyperchromasia Slight; Lymphocytes # (A) 2.1 k/uL (1.0-4.8); Lymphocytes % (A) 34 %; MCH 28.4 pg (25.0-35.0); MCHC 35.8 g/dL (31.0-37.0); MCV 79.3 fL (80.0-100.0); Mean Platelet Volume 8.1; Monocytes # (A) 0.3 k/uL (0-1.0); Monocytes % (A) 5 %; Neutrophils # (A) 3.5 k/uL (1.3-7.7); Neutrophils % (A) 57 %; Platelet Count 132 k/uL (150-450); RBC 4.41 m/uL (4.30-5.90); RDW 13.8 % (11.5-15.5); WBC 6.1 k/uL (3.8-10.6)
[2017-11-03 05:14] LABS: ALT 62 U/L (21-72); AST 35 U/L (17-59); Albumin 3.7 g/dL (3.5-5.0); Alkaline Phosphatase 98 U/L (38-126); Anion Gap 10 mmol/L; Blood Urea Nitrogen 9 mg/dL (9-20); Calcium 9.3 mg/dL (8.4-10.2); Carbon Dioxide 23 mmol/L (22-30); Chloride 108 mmol/L (98-107); Glucose 170 mg/dL (74-99); Magnesium 1.9 mg/dL (1.6-2.3); Sodium 141 mmol/L (137-145); Total Bilirubin 1.4 mg/dL (0.2-1.3); Total Protein 6.1 g/dL (6.3-8.2)
[2017-11-03 05:17] LABS: Creatine Kinase 261 U/L (55-170)
[2017-11-03 05:30] LABS: Troponin I <0.012 ng/mL (0.000-0.034)
[2017-11-03 05:36] LABS: Creatine Kinase MB 3.1 ng/mL (0.0-2.4)
--- NOTE | 2017-11-03 05:38 | XR ---
EXAM: XR Chest, 2 Views CLINICAL HISTORY: ITS.REASON XR Reason: Chest Pain TECHNIQUE: Frontal and lateral views of the chest. COMPARISON: Chest x-ray dated 10/30/2017. FINDINGS: Lungs: Unremarkable. The lungs are clear. Pleural space: Unremarkable. No pneumothorax. Heart: Unremarkable. No cardiomegaly. Mediastinum: Unremarkable. Bones/joints: Reidentified moderate degenerative changes at the right acromioclavicular joint. IMPRESSION: No acute findings.
[2017-11-03] MEDS ORDERED: NITROGLYCERIN SL TABS 0.4 MG TAB SUBLINGUAL PRN (06:22)
[2017-11-03 10:28] VITALS: TEMP 98.1
[2017-11-03 11:16] LABS: Creatine Kinase 182 U/L (55-170)
[2017-11-03 11:30] LABS: Creatine Kinase MB 2.2 ng/mL (0.0-2.4); Troponin I <0.012 ng/mL (0.000-0.034)
[2017-11-03 11:46] VITALS: BP 128/76; PULSE 63; RESP 16
[2017-11-03] MEDS ORDERED: NITROGLYCERIN OINT 1 INCH/GM PACKET TOPICAL SCH (12:00)
[2017-11-03 12:07] LABS: Glucose,Whole Blood 251 mg/dL (75-99)
--- NOTE | 2017-11-03 14:52 | HP ---
HISTORY AND PHYSICAL HISTORY AND PHYSICAL/DISCHARGE SUMMARY: DATE OF SERVICE: 11/03/2017 CHIEF COMPLAINT: Chest pain. HISTORY OF PRESENT ILLNESS: This 47-year-old with was admitted with chest pain, but however the patient left the hospital AGAINST MEDICAL ADVICE. Prognosis remained guarded. Please refer to the ER notes for further details. FINAL DIAGNOSES: 1. Chest pain, possible unstable angina. 2. Diabetes. 3. Hypertension. Patient left the hospital AGAINST MEDICAL ADVICE. MMODL / IJN: [id number] /
[2017-11-04] MEDS ORDERED: ASPIRIN 325 MG TAB PO SCH (09:00)
== END 2017-11-03 12:46 | disposition left against medical advice (07) ==
LOC: EC 04:00 → 3OBS 06:22 → 6SEL 06:45
PROVIDERS: ADMIT Hospitalist; ATTEND Hospitalist
DX: R07.89 Other chest pain (principal); E11.9 Type 2 diabetes mellitus without complications; I10 Essential (primary) hypertension; Z53.21 Procedure and treatment not carried out due to patient leaving prior to being seen by health care provider; R20.2 Paresthesia of skin; F17.200 Nicotine dependence, unspecified, uncomplicated; F90.9 Attention-deficit hyperactivity disorder, unspecified type; F20.9 Schizophrenia, unspecified; G40.909 Epilepsy, unspecified, not intractable, without status epilepticus; R35.0 Frequency of micturition; G47.30 Sleep apnea, unspecified; Z82.49 Family history of ischemic heart disease and other diseases of the circulatory system; Z88.0 Allergy status to penicillin; Z88.8 Allergy status to other drugs, medicaments and biological substances; Z79.899 Other long term (current) drug therapy; Z79.4 Long term (current) use of insulin
CPT/HCPCS: 99285; 36415; 93005; 80053; 82550; 82553; 83735; 84484; 85025; 85610; 85730; 71046; G0378

== ENCOUNTER 2017-11-03 15:08 | Emergency (ER) | payer MEDICARE, OTHER ==
[2017-11-03] MEDS ORDERED: ASPIRIN 81 MG PO STA (16:04)
[2017-11-03] MEDS ORDERED: NITROGLYCERIN OINT 1 INCH/GM PACKET TOPICAL STA (16:04)
[2017-11-03 16:46] LABS: Basophils # (A) 0.1 k/uL (0-0.2); Basophils % (A) 1 %; Eosinophils # (A) 0.1 k/uL (0-0.7); Eosinophils % (A) 2 %; HCT 35.4 % (39.0-53.0); HGB 12.8 gm/dL (13.0-17.5); Hyperchromasia Slight; Lymphocytes # (A) 2.2 k/uL (1.0-4.8); Lymphocytes % (A) 32 %; MCH 28.8 pg (25.0-35.0); MCHC 36.3 g/dL (31.0-37.0); MCV 79.5 fL (80.0-100.0); Mean Platelet Volume 7.6; Monocytes # (A) 0.4 k/uL (0-1.0); Monocytes % (A) 5 %; Neutrophils # (A) 4.1 k/uL (1.3-7.7); Neutrophils % (A) 60 %; Platelet Count 148 k/uL (150-450); RBC 4.45 m/uL (4.30-5.90); RDW 13.9 % (11.5-15.5); WBC 6.9 k/uL (3.8-10.6)
[2017-11-03 16:55] LABS: INR 1.1 (<1.2); Partial Thromboplastin Time 24.1 sec (22.0-30.0); Prothrombin Time 10.4 sec (9.0-12.0)
[2017-11-03 16:59] LABS: ALT 59 U/L (21-72); AST 33 U/L (17-59); Albumin 3.9 g/dL (3.5-5.0); Alkaline Phosphatase 87 U/L (38-126); Anion Gap 9 mmol/L; Blood Urea Nitrogen 14 mg/dL (9-20); Calcium 9.7 mg/dL (8.4-10.2); Carbon Dioxide 25 mmol/L (22-30); Chloride 105 mmol/L (98-107); Glucose 216 mg/dL (74-99); Potassium 4.5 mmol/L (3.5-5.1); Sodium 139 mmol/L (137-145); Total Bilirubin 1.5 mg/dL (0.2-1.3); Total Protein 6.2 g/dL (6.3-8.2)
[2017-11-03 17:13] LABS: Creatine Kinase 185 U/L (55-170)
[2017-11-03 17:26] LABS: Creatine Kinase MB 2.2 ng/mL (0.0-2.4); Troponin I <0.012 ng/mL (0.000-0.034)
--- NOTE | 2017-11-03 18:01 | ED ---
General Adult HPI - General Chief complaint: Anxiety Stated complaint: anxiety Time Seen by Provider: 11/03/17 15:49 Source: patient Mode of arrival: ambulatory Limitations: no limitations - History of Present Illness Initial comments: 47 years old gentleman he was here last night with chest pain he was admitted to the hospital he left the hospital AGAINST MEDICAL ADVICE he is feeling bad and he is wondering if we cannot control his heart again he had a chest pain last night and he been thinking about his chest pain though he do not have any chest pain now and he feels quite anxious him a no chest pain no no shortness of breath no headache no neck stiffness no symptoms of TIA or CVA - Related Data Home Medications Medication Instructions Recorded Confirmed Lisinopril [Zestril] 10 mg PO QAM 06/06/14 11/03/17 Insulin Glargine [Lantus] 100 unit SQ HS 12/17/14 11/03/17 INSULIN LISPRO (HumaLOG) [HumaLOG] See Protocol SQ AC-TID 08/16/15 11/03/17 Divalproex Sodium [Depakote] 1,500 mg PO HS 01/10/17 11/03/17 Sulfamethox-Tmp 800-160Mg [Bactrim 1 tab PO Q12HR 10/30/17 11/03/17 DS 800-160 mg] Omeprazole 40 mg PO HS 11/03/17 11/03/17 Allergies Allergy/AdvReac Type Severity Reaction Status Date / Time bisacodyl Allergy dizziness Verified 11/03/17 16:05 [From Dulcolax (bisacodyl)] gabapentin Allergy seizures Verified 11/03/17 16:05 Penicillins Allergy Unknown Verified 11/03/17 16:05 Childhood clozapine [From Clozaril] AdvReac Severe Aggression Verified 11/03/17 16:05 Review of Systems ROS Statement: Those systems with pertinent positive or pertinent negative responses have been documented in the HPI. ROS Other: All systems not noted in ROS Statement are negative. Past Medical History Past Medical History: Asthma, Diabetes Mellitus, GERD/Reflux, Hypertension, Osteoarthritis (OA), Seizure Disorder, Skin Disorder, Sleep Apnea/CPAP/BIPAP Additional Past Medical History / Comment(s): LAST SEIZURE 28 YRS AGO. chronic back pain. DOES NOT USE CPAP. SPINAL STENOSIS, DDD IN BACK, SCOLIOSIS, IBS, poriasis, frequent urination History of Any Multi-Drug Resistant Organisms: None Reported Past Surgical History: Cholecystectomy, Heart Catheterization, Tonsillectomy Additional Past Surgical History / Comment(s): PAIN PROCEDURES. Past Anesthesia/Blood Transfusion Reactions: Motion Sickness Past Psychological History: ADD/ADHD, Schizophrenia Smoking Status: Current some day smoker Past Alcohol Use History: None Reported Past Drug Use History: None Reported - Past Family History Father Family Medical History: Unable to Obtain Additional Family Medical History / Comment(s): Father left home when pt was 5 yrs old. Mother Family Medical History: No Reported History Additional Family Medical History / Comment(s): Mother at age 55yrs of [place]. General Exam - General Exam Comments Initial Comments: General: The patient is awake and alert, in no distress, and does not appear acutely ill. GCS is 15 Skin: Skin is warm and dry and no rashes or lesions are noted. Eye: Pupils are equal, round and reactive to light, extra-ocular movements are intact; there is normal conjunctiva bilaterally. Ears, nose, mouth and throat: There are moist mucous membranes and no oral lesions. Neck: The neck is supple, there is no tenderness or JVD. Cardiovascular: There is a regular rate and rhythm. No murmur, rub or gallop is appreciated. Respiratory: To auscultation bilateral, no wheezing no rhonchi no distress respiratory ko noticed Gastrointestinal: Soft, non-distended, non-tender abdomen without masses or organomegaly noted. There is no rebound or guarding present. Bowel sounds are unremarkable. Back: There is no tenderness to palpation in the midline. There is no obvious deformity. Musculoskeletal: Normal ROM, no tenderness, There is no pedal edema. There is no calf tenderness or swelling. No cords were appreciated. Neurological: CN II-XII intact, Cranial nerves III through XII are intact. There are no obvious motor or sensory deficits. Coordination appears grossly intact. Speech is normal. Psychiatric: Cooperative, appropriate mood & affect, normal judgment. No suicidal or homicidal ideation Limitations: no limitations Course Vital Signs 11/03/17 11/03/17 15:42 16:15 Temperature 98.1 F Pulse Rate 75 Respiratory 22 20 Rate Blood Pressure 129/61 O2 Sat by Pulse 99 Oximetry This is basically is a follow-up visit for his chest pain last night for which he didn't complete the 3 sets of cardiac markers and he left AMA, his EKG looks normal he is chest pain-free third set of troponin is absolutely normal normal that rules out any any ischemic event at this moment he will be referred to [facility] is advised to call first thing in the morning to set up a follow-up appointment or return to the ER if symptoms get worse he agrees with that plan EKG Findings - EKG Comments: EKG Findings:: EKG is normal sinus rhythm ventricular rate is 39 RI interval is 176 QRS duration is 116 QT/QTc is 414/443 and 50 mL EKG does reveal a T-wave inversion in lead [address] elevation or ST depression noticed noticed some flattening of the T-wave in V5 and V6 Medical Decision Making - Lab Data Result diagrams: 11/03/17 16:29 11/03/17 16:29 Lab Results 11/03/17 11/03/17 11/03/17 Range/Units 16:29 16:29 16:29 WBC 6.9 (3.8-10.6) k/uL RBC 4.45 (4.30-5.90) m/uL Hgb 12.8 L (13.0-17.5) gm/dL Hct 35.4 L (39.0-53.0) % MCV 79.5 L (80.0-100.0) fL MCH 28.8 (25.0-35.0) pg MCHC 36.3 (31.0-37.0) g/dL RDW 13.9 (11.5-15.5) % Plt Count 148 L (150-450) k/uL Neutrophils % 60 % Lymphocytes % 32 % Monocytes % 5 % Eosinophils % 2 % Basophils % 1 % Neutrophils # 4.1 (1.3-7.7) k/uL Lymphocytes # 2.2 (1.0-4.8) k/uL Monocytes # 0.4 (0-1.0) k/uL Eosinophils # 0.1 (0-0.7) k/uL Basophils # 0.1 (0-0.2) k/uL Hyperchromasia Slight PT (9.0-12.0) sec INR (<1.2) APTT (22.0-30.0) sec Sodium 139 (137-145) mmol/L Potassium 4.5 (3.5-5.1) mmol/L Chloride 105 (98-107) mmol/L Carbon Dioxide 25 (22-30) mmol/L Anion Gap 9 mmol/L BUN 14 (9-20) mg/dL Creatinine 0.90 (0.66-1.25) mg/dL Est GFR (MDRD) Af Amer >60 (>60 ml/min/1.73 sqM) Est GFR (MDRD) Non-Af >60 (>60 ml/min/1.73 sqM) Glucose 216 H (74-99) mg/dL Calcium 9.7 (8.4-10.2) mg/dL Magnesium 2.0 (1.6-2.3) mg/dL Total Bilirubin 1.5 H (0.2-1.3) mg/dL AST 33 (17-59) U/L ALT 59 (21-72) U/L Alkaline Phosphatase 87 (38-126) U/L Total Creatine Kinase 185 H (55-170) U/L CK-MB (CK-2) 2.2 (0.0-2.4) ng/mL CK-MB (CK-2) Rel Index 1.2 Troponin I <0.012 (0.000-0.034) ng/mL Total Protein 6.2 L (6.3-8.2) g/dL Albumin 3.9 (3.5-5.0) g/dL 11/03/17 Range/Units 16:29 WBC (3.8-10.6) k/uL RBC (4.30-5.90) m/uL Hgb (13.0-17.5) gm/dL Hct (39.0-53.0) % MCV (80.0-100.0) fL MCH (25.0-35.0) pg MCHC (31.0-37.0) g/dL RDW (11.5-15.5) % Plt Count (150-450) k/uL Neutrophils % % Lymphocytes % % Monocytes % % Eosinophils % % Basophils % % Neutrophils # (1.3-7.7) k/uL Lymphocytes # (1.0-4.8) k/uL Monocytes # (0-1.0) k/uL Eosinophils # (0-0.7) k/uL Basophils # (0-0.2) k/uL Hyperchromasia PT 10.4 (9.0-12.0) sec INR 1.1 (<1.2) APTT 24.1 (22.0-30.0) sec Sodium (137-145) mmol/L Potassium (3.5-5.1) mmol/L Chloride (98-107) mmol/L Carbon Dioxide (22-30) mmol/L Anion Gap mmol/L BUN (9-20) mg/dL Creatinine (0.66-1.25) mg/dL Est GFR (MDRD) Af Amer (>60 ml/min/1.73 sqM) Est GFR (MDRD) Non-Af (>60 ml/min/1.73 sqM) Glucose (74-99) mg/dL Calcium (8.4-10.2) mg/dL Magnesium (1.6-2.3) mg/dL Total Bilirubin (0.2-1.3) mg/dL AST (17-59) U/L ALT (21-72) U/L Alkaline Phosphatase (38-126) U/L Total Creatine Kinase (55-170) U/L CK-MB (CK-2) (0.0-2.4) ng/mL CK-MB (CK-2) Rel Index Troponin I (0.000-0.034) ng/mL Total Protein (6.3-8.2) g/dL Albumin (3.5-5.0) g/dL Disposition Clinical Impression: Chest pain Disposition: HOME SELF-CARE Condition: Good Instructions: Generalized Anxiety Disorder (ED), Chest Pain (ED) Referrals: Brandon Mcpherson MD [Primary Care Provider] - 1-2 days Chyna Tolbert MD [STAFF PHYSICIAN] - 1-2 days
[2017-11-03 18:34] VITALS: BP 136/78; PULSE 76; RESP 16; TEMP 98.2
== END 2017-11-03 18:36 | disposition home or self-care (01) ==
LOC: EC 15:08
DX: R07.9 Chest pain, unspecified (principal); F41.9 Anxiety disorder, unspecified; R40.2412 Glasgow coma scale score 13-15, at arrival to emergency department; I10 Essential (primary) hypertension; E11.9 Type 2 diabetes mellitus without complications; K21.9 Gastro-esophageal reflux disease without esophagitis; G40.909 Epilepsy, unspecified, not intractable, without status epilepticus; F17.200 Nicotine dependence, unspecified, uncomplicated; Z79.4 Long term (current) use of insulin; Z79.899 Other long term (current) drug therapy; Z88.0 Allergy status to penicillin; Z88.8 Allergy status to other drugs, medicaments and biological substances; Z95.9 Presence of cardiac and vascular implant and graft, unspecified; Z82.49 Family history of ischemic heart disease and other diseases of the circulatory system
CPT/HCPCS: 36415; 80053; 82075; 82550; 82553; 83735; 84484; 85025; 85610; 85730; 99283

== ENCOUNTER → 2017-11-04 | Outpatient (CLI) | payer MEDICARE, OTHER | END | disposition home or self-care (01) | LOC: RADUSWWP 08:54 | PROVIDERS: ATTEND Podiatrist | DX: Z53.9 Procedure and treatment not carried out, unspecified reason (principal) ==

== ENCOUNTER → 2017-11-04 | Outpatient (CLI) | payer MEDICARE, OTHER ==
--- NOTE | 2017-11-04 10:43 | US ---
EXAMINATION TYPE: US venous doppler duplex LE LT DATE OF EXAM: 11/04/2017 9:33 AM COMPARISON: NONE CLINICAL HISTORY: M79.604 PAIN LT LEG. Left leg pain. Difficult exam as patient could not sit still d ue to itching SIDE PERFORMED: Left TECHNIQUE: The lower extremity deep venous system is examined utilizing real time linear array sonog antony with graded compression, doppler sonography and color-flow sonography. VESSELS IMAGED: External Iliac Vein (EIV) Common Femoral Vein Deep Femoral Vein Greater Saphenous Vein * Femoral Vein Popliteal Vein Small Saphenous Vein * Proximal Calf Veins (* superficial vessels) Left Leg: Negative for DVT Grayscale, color doppler, spectral doppler imaging performed of the deep veins of the left lower extr emity. There is normal flow, compressibility, vascular waveforms. IMPRESSION: No ultrasound evidence for acute DVT in the left lower extremity.
--- NOTE | 2017-11-05 10:43 | P.ARTDOP ---
Arterial Doppler LOWER EXTREMITY ARTERIAL DOPPLER: DATE OF SERVICE: 11/04/2017 Reason for study: Left toe ulcer. Doppler waveforms: Multiphasic bilaterally throughout. Pulse volume recording: Normal configuration. Pressure gradients: None. Ankle-brachial indices: Greater than 1 bilaterally. Toe pressures: 159 on the right, 167 on the left Impression: Normal study.
== END | disposition home or self-care (01) ==
LOC: RADUSWWP 09:06
PROVIDERS: ATTEND Podiatrist
DX: M79.605 Pain in left leg (principal); M79.604 Pain in right leg
CPT/HCPCS: 93923

== ENCOUNTER → 2017-11-05 | Outpatient (CLI) | payer MEDICARE, OTHER ==
--- NOTE | 2017-11-05 16:44 | MR ---
EXAMINATION TYPE: MR lumbar spine wo con DATE OF EXAM: 11/05/2017 COMPARISON: Prior MRI lumbar spine August 31, 2015 HISTORY: Spinal stenosis lumbar region per order. Low back pain for 1 year per patient going into thi ghs and calves. TECHNIQUE: Multiplanar, multisequence imaging of the lumbar spine is performed without IV contrast. FINDINGS: Sagittal images of the lumbar spine show vertebral body heights to remain satisfactory. The re are persistent bilateral pars defects with grade 1 anterolisthesis of L5 on S1 measures 7 mm sagit melissa images though grossly stable from prior. There is disc desiccation with moderate disc space narro wing and vacuum disc phenomenon as well as endplate irregularity L5-S1 level with Modic type II degen erative change redemonstrated. The intervertebral discs otherwise demonstrate normal heights and hydr ation above this. There is disc herniation at spondylolisthesis L5-S1 level on sagittal images redem onstrated. The conus medullaris is normal in position and signal ending superior L1 level. No signifi cant spurring is present. There is partial visualization of large hemangioma T11 vertebral body level . Axial images redemonstrate the T12-L1, L1-L2, L2-L3, and L3-L4 levels to appear within normal limits. Axial images at the L4-L5 level shows moderate facet degenerative changes and ligamentum flavum hyper trophy. There is broad disc bulge with central disc protrusion. There is effacement of the posterolat eral thecal sac. There is mild right greater than left bilateral neural foraminal narrowing seen. Axial images at L5-S1 level show spondylolisthesis and severe broad disc bulge. There is facet arthro deborah bilaterally. Spinal canal is preserved and there is prominence of epidural fat. There is advanc ed bilateral neural foraminal narrowing encroaching on both L5 nerves seen best on sagittal images 2 through 5 on the left and sagittal images 12 through 15 on the right. Hemangioma S2 level is redemonstrated. No suspicious retroperitoneal findings are seen. IMPRESSION: Overall stable findings, bilateral pars defects with spondylolisthesis lumbosacral juncti on. This along with disc herniation causes advanced bilateral neural foraminal narrowing and encroach ment on both L5 nerves.
== END | disposition home or self-care (01) ==
LOC: RADMRIMAIN 15:32
PROVIDERS: ATTEND Family Medicine
DX: M99.73 Connective tissue and disc stenosis of intervertebral foramina of lumbar region (principal); M51.26 Other intervertebral disc displacement, lumbar region; M43.17 Spondylolisthesis, lumbosacral region
CPT/HCPCS: 72148

== ENCOUNTER 2017-11-09 13:27 | Emergency (ER) | payer MEDICARE, OTHER ==
[2017-11-09 13:47] VITALS: RESP 18
[2017-11-09] MEDS ORDERED: SODIUM CHLORIDE 0.9% 500 ML IV ONE (14:46)
--- NOTE | 2017-11-09 14:53 | ED ---
General Adult HPI - General Chief complaint: Abdominal Pain Stated complaint: PSYCH EVAL Time Seen by Provider: 11/09/17 14:25 Source: patient, RN notes reviewed, old records reviewed Mode of arrival: ambulatory Limitations: no limitations - History of Present Illness Initial comments: Chief complaint and history of present illness a 47-year-old male with complaint of feet hurting chronically. He was told he might have gout. Patient does have insulin-dependent diabetes mellitus for the past 33 years. Also chronic anxiety problems. Patient also reports that he has new skin irritation after being treated twice for scabies. He has a new body wash which he's been using on his skin and his roommate used wash his clothing. The patient continues to state that is close make him itch. Patient denying any chest pain. Patient does have a long history of psychiatric issues. Not complaining of being depressed or suicidal. - Related Data Home Medications Medication Instructions Recorded Confirmed Lisinopril [Zestril] 10 mg PO QAM 06/06/14 11/09/17 Insulin Glargine [Lantus] 100 unit SQ HS 12/17/14 11/09/17 INSULIN LISPRO (HumaLOG) [HumaLOG] See Protocol SQ AC-TID 08/16/15 11/09/17 Divalproex Sodium [Depakote] 1,500 mg PO HS 01/10/17 11/09/17 Omeprazole 40 mg PO HS 11/03/17 11/09/17 traZODone HCL 50 mg PO HS 11/08/17 11/09/17 Fenofibrate Nanocrystallized 145 mg PO DAILY 11/09/17 11/09/17 [Tricor] Meloxicam [Mobic] 7.5 mg PO BID 11/09/17 11/09/17 Pramipexole [Mirapex] 0.5 mg PO DAILY 11/09/17 11/09/17 risperiDONE [RisperDAL] 3 mg PO DAILY 11/09/17 11/09/17 Previous Rx's Medication Instructions Recorded Ibuprofen [Motrin] 600 mg PO Q6HR PRN #20 tab 11/09/17 diphenhydrAMINE [Benadryl] 25 mg PO TID PRN #10 capsule 11/09/17 Allergies Allergy/AdvReac Type Severity Reaction Status Date / Time bisacodyl Allergy dizziness Verified 11/09/17 14:10 [From Dulcolax (bisacodyl)] gabapentin Allergy seizures Verified 11/09/17 14:10 Penicillins Allergy Unknown Verified 11/09/17 14:10 Childhood clozapine [From Clozaril] AdvReac Severe Aggression Verified 11/09/17 14:10 Review of Systems ROS Statement: Those systems with pertinent positive or pertinent negative responses have been documented in the HPI. Review of systems. Patient denies any headache or visual acuity changes. He has chronic neck and back pain from degenerative disc disease and spinal stenosis. The patient denying any chest pain or shortness of breath no chest heaviness. No nausea no vomiting no diarrhea. Complains discomfort to his feet. Especially his right first MTP. Denying any neuro deficits. Does complain of skin itchiness. He does describe possibility of this being caused by new body wash which was used on his skin as well as to wash his clothing. The patient was advised to change his detergent wash the body wash off once he gets home. All systems are reviewed. Past medical problems significant for chronic back pain. The patient's last seizure was 28 years ago. He takes Depakote for mood disorders pluses seizure disorder. Also complains of having had a history of IBS, the patient's surgeries include cholecystectomy and heart catheterization but no stents were placed. Tonsillectomy. And procedures for chronic pain. Currently occasional smoker strongly encouraged to stop denies alcohol use. Denies drug use. States he is to be on morphine up 3 or 4 years ago but none since then. ROS Other: All systems not noted in ROS Statement are negative. Past Medical History Past Medical History: Asthma, Diabetes Mellitus, GERD/Reflux, Hypertension, Osteoarthritis (OA), Seizure Disorder, Skin Disorder, Sleep Apnea/CPAP/BIPAP Additional Past Medical History / Comment(s): LAST SEIZURE 28 YRS AGO. chronic back pain. DOES NOT USE CPAP. SPINAL STENOSIS, DDD IN BACK, SCOLIOSIS, IBS, poriasis, frequent urination History of Any Multi-Drug Resistant Organisms: None Reported Past Surgical History: Cholecystectomy, Heart Catheterization, Tonsillectomy Additional Past Surgical History / Comment(s): PAIN PROCEDURES. Past Anesthesia/Blood Transfusion Reactions: Motion Sickness Past Psychological History: ADD/ADHD, Schizophrenia Smoking Status: Current some day smoker Past Alcohol Use History: None Reported Past Drug Use History: None Reported - Past Family History Father Family Medical History: Unable to Obtain Additional Family Medical History / Comment(s): Father left home when pt was 5 yrs old. Mother Family Medical History: No Reported History Additional Family Medical History / Comment(s): Mother at age 55yrs of [place]. General Exam - General Exam Comments Initial Comments: General: The patient is awake and alert, he with multiple complaints starting with itchiness to his skin pain to his right first MTP. Recently treated for scabies twice. He was recently in hospital and signed out. On repeat visit within 24 hours the patient's troponins remained negative. Not complaining of any chest pain or palpitations. Vital signs his temperature 98.4 pulse 74 respiratory rate 18 pulse ox 90% room air blood pressure 139/76 in no distress, and does not appear acutely ill. Eye: Pupils are equal, round and reactive to light, extra-ocular movements are intact ; there is normal conjunctiva bilaterally. No signs of icterus. Ears, nose, mouth and throat: There are moist mucous membranes and no oral lesions. Neck: Patient has chronic neck discomfort with movement but no more pain now than than before. Cardiovascular: There is a regular rate and rhythm. No murmur, rub or gallop is appreciated. Denies any problems with chest pain or rapid beat at this time Respiratory: Lungs are clear to auscultation, respirations are non-labored, breath sounds are equal. No wheezes, stridor, rales, or rhonchi. Gastrointestinal: Soft, non-distended, non-tender abdomen without masses or organomegaly noted. There is no rebound or guarding present. No CVA tenderness. Bowel sounds are unremarkable. Back: History of degenerative disc disease and spinal stenosis. Chronic pain. No increased pain lately. Musculoskeletal: Patient is a diabetic ulcer on his left great toe being treated with bandages. And his family physician as well. No changes per patient. Also redness tenderness to the right first MTP. Patient states he may have gout. Location ko he is on lisinopril as well. Neurological: No reported or noted neuro deficits. Skin: No evidence of scabies at this time. Patient was treated twice over the last 2 weeks for it. Does complain of general itchiness. He does state that he is using a new body wash and the body wash was also used to wash his clothing. Advice given. Psychiatric: Cooperative, past history of mental health issues but denying any problems with depression or suicidal thoughts this time. He is following up with his psychiatrist. On medications. In fact recently was placed on trazodone. He did stop Ativan on his own 3 weeks ago. Trazodone new medication over the past 3 or 4 days. Limitations: no limitations Course Vital Signs 11/09/17 11/09/17 13:45 16:01 Temperature 98.4 F Pulse Rate 74 71 Respiratory 18 18 Rate Blood Pressure 139/76 151/78 O2 Sat by Pulse 98 98 Oximetry Medical Decision Making - Medical Decision Making Medical decision making; this is a 47-year-old male with a chief complaint of itchy skin. He has been using a new body wash on some self and then on his clothing. Told to stop rinse and change detergents. Also discomfort to his right great toe at its MTP area. Uric acid is normal 7.3. White count otherwise 5.8 hemoglobin 13 hematocrit 35. Potassium 3.8 BUN 13 creatinine 0.7 GFR greater than 90. Glucose 197. The patient admits not being great medical controlling his diabetes is normally the 160 range. Total bilirubin mildly elevated 1.4. All of the labs normal limits. We did discuss the patient's medication use including lisinopril and possible effect might have one joints. He's discussed this with family doctor. Also advised to change his detergent back to the original one stop the new body wash. Call follow up with his family doctor. And psychiatrist. Patient again not depressed denies any suicidal thoughts. Also advised take Benadryl for itch. 25 mg 3 times a day. - Lab Data Result diagrams: 11/09/17 15:13 11/09/17 15:13 Lab Results 11/09/17 11/09/17 Range/Units 15:13 15:13 WBC 5.8 (3.8-10.6) k/uL RBC 4.50 (4.30-5.90) m/uL Hgb 13.5 (13.0-17.5) gm/dL Hct 35.6 L (39.0-53.0) % MCV 79.2 L (80.0-100.0) fL MCH 30.0 (25.0-35.0) pg MCHC 37.9 H (31.0-37.0) g/dL RDW 13.6 (11.5-15.5) % Plt Count 139 L (150-450) k/uL Neutrophils % 61 % Lymphocytes % 30 % Monocytes % 6 % Eosinophils % 1 % Basophils % 1 % Neutrophils # 3.6 (1.3-7.7) k/uL Lymphocytes # 1.8 (1.0-4.8) k/uL Monocytes # 0.3 (0-1.0) k/uL Eosinophils # 0.1 (0-0.7) k/uL Basophils # 0.1 (0-0.2) k/uL Hyperchromasia Marked Poikilocytosis Slight Sodium 138 (137-145) mmol/L Potassium 3.8 (3.5-5.1) mmol/L Chloride 104 (98-107) mmol/L Carbon Dioxide 22 (22-30) mmol/L Anion Gap 12 mmol/L BUN 13 (9-20) mg/dL Creatinine 0.70 (0.66-1.25) mg/dL Est GFR (CKD-EPI)AfAm >90 (>60 ml/min/1.73 sqM) Est GFR (CKD-EPI)NonAf >90 (>60 ml/min/1.73 sqM) Glucose 197 H (74-99) mg/dL Uric Acid 7.3 (3.5-8.5) mg/dL Calcium 9.7 (8.4-10.2) mg/dL Total Bilirubin 1.4 H (0.2-1.3) mg/dL AST 39 (17-59) U/L ALT 53 (21-72) U/L Alkaline Phosphatase 80 (38-126) U/L Total Protein 6.2 L (6.3-8.2) g/dL Albumin 3.8 (3.5-5.0) g/dL Disposition Clinical Impression: Pruritus of skin, Anxiety Disposition: HOME SELF-CARE Condition: Fair Instructions: Itchy Skin (ED), Generalized Anxiety Disorder (ED) Additional Instructions: Increase fluids, speech or family physician. Rinse your closed in the old detergent and wash your body do not used a new body wash. Ibuprofen 600 mg every 6 hours for pain. Keep feet elevated. Follow-up family physician. Prescriptions: diphenhydrAMINE [Benadryl] 25 mg PO TID PRN #10 capsule PRN Reason: Itchy skin Ibuprofen [Motrin] 600 mg PO Q6HR PRN #20 tab PRN Reason: Pain Referrals: Brandon Mcpherson MD [Primary Care Provider] - 1-2 days Time of Disposition: 16:16
[2017-11-09 15:28] LABS: Basophils # (A) 0.1 k/uL (0-0.2); Basophils % (A) 1 %; Eosinophils # (A) 0.1 k/uL (0-0.7); Eosinophils % (A) 1 %; HCT 35.6 % (39.0-53.0); HGB 13.5 gm/dL (13.0-17.5); Hyperchromasia Marked; Lymphocytes # (A) 1.8 k/uL (1.0-4.8); Lymphocytes % (A) 30 %; MCHC 37.9 g/dL (31.0-37.0); MCV 79.2 fL (80.0-100.0); Mean Platelet Volume 7.3; Monocytes # (A) 0.3 k/uL (0-1.0); Monocytes % (A) 6 %; Neutrophils # (A) 3.6 k/uL (1.3-7.7); Neutrophils % (A) 61 %; Platelet Count 139 k/uL (150-450); Poikilocytosis Slight; RDW 13.6 % (11.5-15.5); WBC 5.8 k/uL (3.8-10.6)
[2017-11-09 15:40] LABS: ALT 53 U/L (21-72); AST 39 U/L (17-59); Albumin 3.8 g/dL (3.5-5.0); Alkaline Phosphatase 80 U/L (38-126); Anion Gap 12 mmol/L; Blood Urea Nitrogen 13 mg/dL (9-20); Calcium 9.7 mg/dL (8.4-10.2); Carbon Dioxide 22 mmol/L (22-30); Chloride 104 mmol/L (98-107); Glucose 197 mg/dL (74-99); Potassium 3.8 mmol/L (3.5-5.1); Sodium 138 mmol/L (137-145); Total Bilirubin 1.4 mg/dL (0.2-1.3); Total Protein 6.2 g/dL (6.3-8.2); Uric Acid 7.3 mg/dL (3.5-8.5)
[2017-11-09 16:02] VITALS: BP 151/78; PULSE 71
[2017-11-09 16:33] VITALS: TEMP 98.9
== END 2017-11-09 16:31 | disposition home or self-care (01) ==
LOC: EC 13:27
DX: L29.9 Pruritus, unspecified (principal); F41.9 Anxiety disorder, unspecified; E11.9 Type 2 diabetes mellitus without complications; K21.9 Gastro-esophageal reflux disease without esophagitis; I10 Essential (primary) hypertension; G40.909 Epilepsy, unspecified, not intractable, without status epilepticus; F20.9 Schizophrenia, unspecified; M48.00 Spinal stenosis, site unspecified; M19.90 Unspecified osteoarthritis, unspecified site; F17.200 Nicotine dependence, unspecified, uncomplicated; G47.30 Sleep apnea, unspecified; Z99.89 Dependence on other enabling machines and devices; Z95.5 Presence of coronary angioplasty implant and graft; Z79.899 Other long term (current) drug therapy; Z79.4 Long term (current) use of insulin; Z79.1 Long term (current) use of non-steroidal anti-inflammatories (NSAID); Z88.8 Allergy status to other drugs, medicaments and biological substances; Z88.0 Allergy status to penicillin
CPT/HCPCS: 36415; 80053; 84550; 85025; 96360; 99284

== ENCOUNTER 2017-11-11 08:56 | Emergency (ER) | payer MEDICARE, OTHER ==
[2017-11-11] MEDS ORDERED: RX INFO: IV CONTRAST WAS GIVEN 1 EACH MISC MISCELLANE PRN (09:07)
[2017-11-11] MEDS ORDERED: SODIUM CHLORIDE 0.9% 1,000 ML IV STA (09:07)
[2017-11-11] MEDS ORDERED: KETOROLAC 30 MG/ML 1 ML VIAL IVP STA (09:31)
--- NOTE | 2017-11-11 09:41 | ED ---
General Adult HPI <Winston Church - Last Filed: 11/11/17 11:54> - General Source: patient, RN notes reviewed, old records reviewed Mode of arrival: EMS Limitations: no limitations <Louie Hollis - Last Filed: 11/11/17 12:03> - General Chief complaint: Nausea/Vomiting/Diarrhea Stated complaint: Abd Pain Time Seen by Provider: 11/11/17 08:59 - History of Present Illness Initial comments: This is a 47-year-old male presents emergency Department chief complaint abdominal pain. Patient states that he's been having worsening symptoms over the last few days. Patient states that worse after he took some bowel prep medication. Patient states she is IBS and was told to take some GoLYTELY. Patient states that symptoms are worsened. Patient was supposed go to the ID for some testing otherwise on the phone the nurse triaged him and felt that he may have a bowel obstruction told him go to the emergency department. Patient denies any vomiting slightly nauseated complains of more pain. Patient states pain is along his lower abdomen. He denies any dysuria or hematuria. (Louie Hollis) - Related Data Home Medications Medication Instructions Recorded Confirmed Lisinopril [Zestril] 10 mg PO QAM 06/06/14 11/11/17 Insulin Glargine [Lantus] 100 unit SQ HS 12/17/14 11/11/17 INSULIN LISPRO (HumaLOG) [HumaLOG] See Protocol SQ AC-TID 08/16/15 11/11/17 Divalproex Sodium [Depakote] 1,500 mg PO HS 01/10/17 11/11/17 Omeprazole 40 mg PO HS 11/03/17 11/11/17 traZODone HCL 50 mg PO HS 11/08/17 11/11/17 Fenofibrate Nanocrystallized 145 mg PO DAILY 11/09/17 11/11/17 [Tricor] Meloxicam [Mobic] 7.5 mg PO BID 11/09/17 11/11/17 Pramipexole [Mirapex] 0.5 mg PO DAILY 11/09/17 11/11/17 risperiDONE [RisperDAL] 3 mg PO DAILY 11/09/17 11/11/17 Previous Rx's Medication Instructions Recorded Ibuprofen [Motrin] 600 mg PO Q6HR PRN #20 tab 11/09/17 diphenhydrAMINE [Benadryl] 25 mg PO TID PRN #10 capsule 11/09/17 Acetaminophen-Codeine 300-30mg 1 tab PO Q6HR PRN #10 tablet 11/11/17 [Tylenol #3] Ondansetron Odt [Zofran Odt] 4 mg PO Q8HR PRN #10 tab 11/11/17 Allergies Allergy/AdvReac Type Severity Reaction Status Date / Time bisacodyl Allergy dizziness Verified 11/11/17 09:17 [From Dulcolax (bisacodyl)] gabapentin Allergy seizures Verified 11/11/17 09:17 Penicillins Allergy Unknown Verified 11/11/17 09:17 Childhood clozapine [From Clozaril] AdvReac Severe Aggression Verified 11/11/17 09:17 Review of Systems ROS Other: All systems not noted in ROS Statement are negative. <Winston Church - Last Filed: 11/11/17 11:54> ROS Other: All systems not noted in ROS Statement are negative. <Louie Hollis - Last Filed: 11/11/17 12:03> ROS Statement: Those systems with pertinent positive or pertinent negative responses have been documented in the HPI. Past Medical History Past Medical History: Asthma, Diabetes Mellitus, GERD/Reflux, Hypertension, Osteoarthritis (OA), Seizure Disorder, Skin Disorder, Sleep Apnea/CPAP/BIPAP Additional Past Medical History / Comment(s): LAST SEIZURE 28 YRS AGO. chronic back pain. DOES NOT USE CPAP. SPINAL STENOSIS, DDD IN BACK, SCOLIOSIS, IBS, poriasis, frequent urination History of Any Multi-Drug Resistant Organisms: None Reported Past Surgical History: Cholecystectomy, Heart Catheterization, Tonsillectomy Additional Past Surgical History / Comment(s): PAIN PROCEDURES. Past Anesthesia/Blood Transfusion Reactions: Motion Sickness Past Psychological History: ADD/ADHD, Schizophrenia Smoking Status: Current some day smoker Past Alcohol Use History: None Reported Past Drug Use History: None Reported - Past Family History Father Family Medical History: Unable to Obtain Additional Family Medical History / Comment(s): Father left home when pt was 5 yrs old. Mother Family Medical History: No Reported History Additional Family Medical History / Comment(s): Mother at age 55yrs of [place]. <Louie Hollis - Last Filed: 11/11/17 12:03> General Exam Limitations: no limitations General appearance: alert, in no apparent distress Head exam: Present: atraumatic, normocephalic, normal inspection Eye exam: Present: normal appearance, PERRL, EOMI. Absent: scleral icterus, conjunctival injection, periorbital swelling ENT exam: Present: normal exam, mucous membranes moist Neck exam: Present: normal inspection. Absent: tenderness, meningismus, lymphadenopathy Respiratory exam: Present: normal lung sounds bilaterally. Absent: respiratory distress, wheezes, rales, rhonchi, stridor Cardiovascular Exam: Present: regular rate, normal rhythm, normal heart sounds. Absent: systolic murmur, diastolic murmur, rubs, gallop, clicks GI/Abdominal exam: Present: soft, tenderness (Suprapubic tenderness), normal bowel sounds. Absent: distended, guarding, rebound, rigid Back exam: Absent: CVA tenderness (R), CVA tenderness (L) Skin exam: Present: warm, dry, intact, normal color. Absent: rash <Louie Hollis - Last Filed: 11/11/17 12:03> Course <Winston Church - Last Filed: 11/11/17 11:54> <Louie Hollis - Last Filed: 11/11/17 12:03> Vital Signs 11/11/17 08:58 Temperature 98.1 F Pulse Rate 67 Respiratory 18 Rate Blood Pressure 145/70 O2 Sat by Pulse 99 Oximetry - Reevaluation(s) Reevaluation #1: 11/11/17 11:46 Patient was reevaluated by myself, Dr. Church. Patient states he has had symptoms for months. Patient does have mild tenderness in the suprapubic region. CT results reviewed. Case was discussed with Dr. Byrne who is not currently data communications engineer to evaluate the patient however feels patient does not have an acute abdomen and I did feel comfortable with discharge that she could follow-up with patient later this week. (Winston Church) Medical Decision Making - Lab Data Result diagrams: 11/11/17 09:15 11/11/17 09:15 <Winston Church - Last Filed: 11/11/17 11:54> - Lab Data Result diagrams: 11/11/17 09:15 11/11/17 09:15 <Dedoe,Louie M - Last Filed: 11/11/17 12:03> - Medical Decision Making 47-year-old male present emergency from for abdominal pain. Patient's CT shows possible omental infarct versus omentitis. Case was discussed with surgeon. Dr. Ky Monzon who feels the patient will follow-up in office does not need to be admitted at this time. Patient be discharged return parameters were discussed. (Louie Hollis) - Lab Data Lab Results 11/11/17 11/11/17 11/11/17 Range/Units 09:15 09:15 09:15 WBC 6.6 (3.8-10.6) k/uL RBC 4.42 (4.30-5.90) m/uL Hgb 12.9 L (13.0-17.5) gm/dL Hct 35.2 L (39.0-53.0) % MCV 79.6 L (80.0-100.0) fL MCH 29.2 (25.0-35.0) pg MCHC 36.6 (31.0-37.0) g/dL RDW 13.4 (11.5-15.5) % Plt Count 123 L (150-450) k/uL Neutrophils % 60 % Lymphocytes % 32 % Monocytes % 6 % Eosinophils % 1 % Basophils % 1 % Neutrophils # 4.0 (1.3-7.7) k/uL Lymphocytes # 2.1 (1.0-4.8) k/uL Monocytes # 0.4 (0-1.0) k/uL Eosinophils # 0.0 (0-0.7) k/uL Basophils # 0.1 (0-0.2) k/uL Hyperchromasia Slight Sodium 140 (137-145) mmol/L Potassium 3.7 (3.5-5.1) mmol/L Chloride 104 (98-107) mmol/L Carbon Dioxide 25 (22-30) mmol/L Anion Gap 11 mmol/L BUN 17 (9-20) mg/dL Creatinine 0.91 (0.66-1.25) mg/dL Est GFR (CKD-EPI)AfAm >90 (>60 ml/min/1.73 sqM) Est GFR (CKD-EPI)NonAf >90 (>60 ml/min/1.73 sqM) Glucose 197 H (74-99) mg/dL Calcium 9.4 (8.4-10.2) mg/dL Magnesium 1.8 (1.6-2.3) mg/dL Total Bilirubin 1.7 H (0.2-1.3) mg/dL AST 36 (17-59) U/L ALT 57 (21-72) U/L Alkaline Phosphatase 86 (38-126) U/L Total Protein 6.2 L (6.3-8.2) g/dL Albumin 3.8 (3.5-5.0) g/dL Amylase 36 (30-110) U/L Lipase 118 (23-300) U/L Urine Color Yellow Urine Appearance Clear (Clear) Urine pH 6.5 (5.0-8.0) Ur Specific [place] 1.028 (1.001-1.035) Urine Protein Negative (Negative) Urine Glucose (UA) Negative (Negative) Urine Ketones Negative (Negative) Urine Blood Small H (Negative) Urine Nitrite Negative (Negative) Urine Bilirubin Negative (Negative) Urine Urobilinogen <2.0 (<2.0) mg/dL Ur Leukocyte Esterase Negative (Negative) Urine RBC 3 (0-5) /hpf Urine WBC 1 (0-5) /hpf Urine Bacteria Rare H (None) /hpf Urine Mucus Rare H (None) /hpf Disposition <Winston Church - Last Filed: 11/11/17 11:54> Time of Disposition: 12:03 <Louie Hollis - Last Filed: 11/11/17 12:03> Clinical Impression: Abdominal pain Disposition: HOME SELF-CARE Condition: Stable Instructions: Abdominal Pain (ED) Additional Instructions: Please return to the Emergency Department if symptoms worsen or any other concerns. Prescriptions: Acetaminophen-Codeine 300-30mg [Tylenol #3] 1 tab PO Q6HR PRN #10 tablet PRN Reason: pain Ondansetron Odt [Zofran Odt] 4 mg PO Q8HR PRN #10 tab PRN Reason: Nausea Referrals: Brandon Mcpherson MD [Primary Care Provider] - 1-2 days Trena Byrne MD [STAFF PHYSICIAN] - 1-2 days
[2017-11-11 09:56] LABS: ALT 57 U/L (21-72); AST 36 U/L (17-59); Albumin 3.8 g/dL (3.5-5.0); Alkaline Phosphatase 86 U/L (38-126); Amylase 36 U/L (30-110); Anion Gap 11 mmol/L; Blood Urea Nitrogen 17 mg/dL (9-20); Calcium 9.4 mg/dL (8.4-10.2); Carbon Dioxide 25 mmol/L (22-30); Chloride 104 mmol/L (98-107); Glucose 197 mg/dL (74-99); Lipase 118 U/L (23-300); Magnesium 1.8 mg/dL (1.6-2.3); Potassium 3.7 mmol/L (3.5-5.1); Sodium 140 mmol/L (137-145); Total Bilirubin 1.7 mg/dL (0.2-1.3); Total Protein 6.2 g/dL (6.3-8.2)
--- NOTE | 2017-11-11 10:24 | CT ---
EXAMINATION TYPE: CT abdomen pelvis w con DATE OF EXAM: 11/11/2017 COMPARISON: 10/16/2017 HISTORY: 46-year-old male with abdominal pain TECHNIQUE: Contiguous axial scanning of the abdomen and pelvis following administration of 100 ml Omn ipaque 300 IV contrast. Delayed images through the kidneys and coronal/sagittal reconstructions perf ormed. CT DLP: 1954.40 mGycm Automated exposure control for dose reduction was used. FINDINGS: Heart is normal size without pericardial effusion. Lung bases clear without pleural effusion. Some mild focal hypodensity along the gallbladder fossa could represent some focal fat. Additional fo stephan fat along the anterior falciform ligament. Liver upper limits of normal in size at 17.5 cm cranio caudal. The portal venous system is patent. Somewhat prominent size of the main portal vein at 1.7 cm and of the splenic vein at 1.5 cm. Cholecystectomy clips are present without biliary ductal dilatation. Adrenal glands, kidneys, and atrophic pancreas show no gross abnormality. Spleen is enlarged measuring 16.5 cm, unchanged. No dilated small bowel, free fluid, or free air. Scattered nonenlarged mesenteric lymph nodes are present. No significant stool burden. No pericolonic inflammatory change. Normal appendix. Focal soft tissue stranding in the subcutaneous fat of the bilateral lower quadrants compatible with subcutaneous injections. There is some focal soft tissue stranding within the inferior omentum. Prominent motion artifact at t his level. Refer to axial image 77 and sagittal image 69. Moderate circumferential wall thickening of the bladder. No abnormal fluid collection in the pelvis o r pelvic lymphadenopathy is seen. Bones: Mild degenerative changes at the hips. Degenerative changes SI joints. Left L5 hemisacralizati on. Bilateral L4 pars defects with anterolisthesis at L4-L5 and associated moderate to advanced degen erative disc disease. No osseous destructive process. IMPRESSION: 1. FOCAL SOFT TISSUE STRANDING IN THE ANTERIOR PELVIC FAT JUST ABOVE THE BLADDER. NONSPECIFIC INFLAMM ATION SUCH FROM A SMALL OMENTAL INFARCT OR OMENTITIS IS CONSIDERED. 2. MODERATE CIRCUMFERENTIAL BLADDER WALL THICKENING. CORRELATE TO EXCLUDE CYSTITIS. 3. PERSISTENT SPLENOMEGALY (16.5 CM). CLINICAL CORRELATION RECOMMENDED. POSSIBILITY OF UNDERLYING ZEUS ER DISEASE AND PORTAL VENOUS HYPERTENSION IS ALSO IN THE DIFFERENTIAL FOR THE SPLENOMEGALY GIVEN BORD TYLOR HEPATOMEGALY AND PROMINENT CALIBER TO THE PORTAL VENOUS SYSTEM. 4. BILATERAL L4 PARS DEFECTS WITH A GRADE 1 ANTEROLISTHESIS AT L4-L5. LEFT L5 HEMISACRALIZATION.
[2017-11-11 10:56] LABS: Appearance,Urine Clear (Clear); Bacteria,Urine Rare /hpf; Bilirubin,Urine Negative (Negative); Blood,Urine Small (Negative); Color,Urine Yellow; Glucose,Urine (UA) Negative (Negative); Ketones,Urine Negative (Negative); Leukocyte Esterase,Urine Negative (Negative); Mucus,Urine Rare /hpf; Nitrite,Urine Negative (Negative); PH, Urine 6.5 (5.0-8.0); Protein,Urine Negative (Negative); RBC,Urine 3 /hpf (0-5); Specific Gravity,Urine 1.028 (1.001-1.035); Urobilinogen,Urine <2.0 mg/dL (<2.0); WBC,Urine 1 /hpf (0-5)
[2017-11-11 11:00] LABS: Basophils # (A) 0.1 k/uL (0-0.2); Basophils % (A) 1 %; Eosinophils % (A) 1 %; HCT 35.2 % (39.0-53.0); HGB 12.9 gm/dL (13.0-17.5); Hyperchromasia Slight; Lymphocytes # (A) 2.1 k/uL (1.0-4.8); Lymphocytes % (A) 32 %; MCH 29.2 pg (25.0-35.0); MCHC 36.6 g/dL (31.0-37.0); MCV 79.6 fL (80.0-100.0); Mean Platelet Volume 8.2; Monocytes # (A) 0.4 k/uL (0-1.0); Monocytes % (A) 6 %; Neutrophils % (A) 60 %; Platelet Count 123 k/uL (150-450); RBC 4.42 m/uL (4.30-5.90); RDW 13.4 % (11.5-15.5); WBC 6.6 k/uL (3.8-10.6)
[2017-11-11 12:30] VITALS: BP 161/80; PULSE 63; RESP 17; TEMP 97.7
== END 2017-11-11 12:27 | disposition home or self-care (01) ==
LOC: EC 08:56
DX: R10.30 Lower abdominal pain, unspecified (principal); R11.0 Nausea; E11.9 Type 2 diabetes mellitus without complications; K21.9 Gastro-esophageal reflux disease without esophagitis; I10 Essential (primary) hypertension; G40.909 Epilepsy, unspecified, not intractable, without status epilepticus; K58.9 Irritable bowel syndrome, unspecified; F20.9 Schizophrenia, unspecified; F17.200 Nicotine dependence, unspecified, uncomplicated; Z90.49 Acquired absence of other specified parts of digestive tract; Z79.1 Long term (current) use of non-steroidal anti-inflammatories (NSAID); Z79.4 Long term (current) use of insulin; Z79.899 Other long term (current) drug therapy; Z88.0 Allergy status to penicillin; Z88.8 Allergy status to other drugs, medicaments and biological substances
CPT/HCPCS: 36415; 80053; 82150; 83690; 83735; 85025; 81001; 74177; 99284; 96374; 96361 ×3; J1885; Q9967

== ENCOUNTER 2017-11-12 21:51 | Emergency (ER) | payer MEDICARE, OTHER ==
[2017-11-12 21:55] VITALS: BP 166/77; PULSE 69; RESP 18
--- NOTE | 2017-11-12 22:02 | ED ---
SOB HPI - General Chief Complaint: Shortness of Breath Stated Complaint: SOB Time Seen by Provider: 11/12/17 21:51 Source: patient, EMS, RN notes reviewed, old records reviewed Mode of arrival: EMS Limitations: no limitations - History of Present Illness Initial Comments: This is a 46-year-old male was brought in by EMS with complaints of shortness of breath and racing heart. This occurred after drinking green tea he states. Is also noted to have a blood pressure of 188/93 facial states he is watching [employer] on television. He was feeling somewhat anxious he does feel better now. No other complaints MD Complaint: shortness of breath - Related Data Home Medications Medication Instructions Recorded Confirmed Lisinopril [Zestril] 10 mg PO QAM 06/06/14 11/11/17 Insulin Glargine [Lantus] 100 unit SQ HS 12/17/14 11/11/17 INSULIN LISPRO (HumaLOG) [HumaLOG] See Protocol SQ AC-TID 08/16/15 11/11/17 Divalproex Sodium [Depakote] 1,500 mg PO HS 01/10/17 11/11/17 Omeprazole 40 mg PO HS 11/03/17 11/11/17 traZODone HCL 50 mg PO HS 11/08/17 11/11/17 Fenofibrate Nanocrystallized 145 mg PO DAILY 11/09/17 11/11/17 [Tricor] Meloxicam [Mobic] 7.5 mg PO BID 11/09/17 11/11/17 Pramipexole [Mirapex] 0.5 mg PO DAILY 11/09/17 11/11/17 risperiDONE [RisperDAL] 3 mg PO DAILY 11/09/17 11/11/17 Previous Rx's Medication Instructions Recorded Ibuprofen [Motrin] 600 mg PO Q6HR PRN #20 tab 11/09/17 diphenhydrAMINE [Benadryl] 25 mg PO TID PRN #10 capsule 11/09/17 Acetaminophen-Codeine 300-30mg 1 tab PO Q6HR PRN #10 tablet 11/11/17 [Tylenol #3] Ondansetron Odt [Zofran Odt] 4 mg PO Q8HR PRN #10 tab 11/11/17 Allergies Allergy/AdvReac Type Severity Reaction Status Date / Time bisacodyl Allergy dizziness Verified 11/12/17 21:55 [From Dulcolax (bisacodyl)] gabapentin Allergy seizures Verified 11/12/17 21:55 Penicillins Allergy Unknown Verified 11/12/17 21:55 Childhood clozapine [From Clozaril] AdvReac Severe Aggression Verified 11/12/17 21:55 Review of Systems ROS Statement: Those systems with pertinent positive or pertinent negative responses have been documented in the HPI. ROS Other: All systems not noted in ROS Statement are negative. Past Medical History Past Medical History: Asthma, Diabetes Mellitus, GERD/Reflux, Hypertension, Osteoarthritis (OA), Seizure Disorder, Skin Disorder, Sleep Apnea/CPAP/BIPAP Additional Past Medical History / Comment(s): LAST SEIZURE 28 YRS AGO. chronic back pain. DOES NOT USE CPAP. SPINAL STENOSIS, DDD IN BACK, SCOLIOSIS, IBS, poriasis, frequent urination History of Any Multi-Drug Resistant Organisms: None Reported Past Surgical History: Cholecystectomy, Heart Catheterization, Tonsillectomy Additional Past Surgical History / Comment(s): PAIN PROCEDURES. Past Anesthesia/Blood Transfusion Reactions: Motion Sickness Past Psychological History: ADD/ADHD, Schizophrenia Smoking Status: Current some day smoker Past Alcohol Use History: None Reported Past Drug Use History: None Reported - Past Family History Father Family Medical History: Unable to Obtain Additional Family Medical History / Comment(s): Father left home when pt was 5 yrs old. Mother Family Medical History: No Reported History Additional Family Medical History / Comment(s): Mother at age 55yrs of [place]. General Exam - General Exam Comments Initial Comments: This is a well-developed well-nourished awake alert oriented 3 male Limitations: no limitations General appearance: alert, in no apparent distress Head exam: Present: atraumatic, normocephalic, normal inspection Eye exam: Present: normal appearance, PERRL, EOMI. Absent: scleral icterus, conjunctival injection, periorbital swelling ENT exam: Present: normal exam, mucous membranes moist Neck exam: Present: normal inspection. Absent: tenderness, meningismus, lymphadenopathy Respiratory exam: Present: normal lung sounds bilaterally. Absent: respiratory distress, wheezes, rales, rhonchi, stridor Cardiovascular Exam: Present: regular rate, normal rhythm, normal heart sounds. Absent: systolic murmur, diastolic murmur, rubs, gallop, clicks GI/Abdominal exam: Absent: distended, tenderness, guarding, rebound, rigid Extremities exam: Present: normal inspection, full ROM, normal capillary refill. Absent: tenderness, pedal edema, joint swelling, calf tenderness Back exam: Present: normal inspection Neurological exam: Present: alert, oriented X3, CN II-XII intact Psychiatric exam: Present: normal affect, normal mood Skin exam: Present: warm, dry, intact, normal color. Absent: rash Course Vital Signs 11/12/17 11/12/17 21:53 22:13 Pulse Rate 69 Respiratory 18 18 Rate Blood Pressure 166/77 O2 Sat by Pulse 98 Oximetry Medical Decision Making - Medical Decision Making The patient will be discharged he was instructed to avoid tea follow-up with his doctor return when necessary - EKG Data -: EKG Interpreted by Me EKG shows normal: sinus rhythm (EKG shows a sinus rhythm a 64 LVH nonspecific T- wave configuration the HI interval 188 QRS duration 122 QT since QTC of 426/439 this is consistent with an earlier EKG dated 11/03/17.) Disposition Clinical Impression: Palpitations, Anxiety Disposition: HOME SELF-CARE Condition: Good Instructions: Palpitations (ED), Anxiety (ED) Referrals: Brandon Mcpherson MD [Primary Care Provider] - 1-2 days
== END 2017-11-12 23:02 | disposition home or self-care (01) ==
LOC: EC 21:51
DX: F41.9 Anxiety disorder, unspecified (principal); R00.2 Palpitations; J45.909 Unspecified asthma, uncomplicated; E11.9 Type 2 diabetes mellitus without complications; K21.9 Gastro-esophageal reflux disease without esophagitis; M19.90 Unspecified osteoarthritis, unspecified site; I10 Essential (primary) hypertension; G40.909 Epilepsy, unspecified, not intractable, without status epilepticus; F20.9 Schizophrenia, unspecified; F17.200 Nicotine dependence, unspecified, uncomplicated; G47.30 Sleep apnea, unspecified; Z99.89 Dependence on other enabling machines and devices; Z95.5 Presence of coronary angioplasty implant and graft; Z79.899 Other long term (current) drug therapy; Z79.4 Long term (current) use of insulin; Z79.1 Long term (current) use of non-steroidal anti-inflammatories (NSAID); Z88.8 Allergy status to other drugs, medicaments and biological substances; Z88.0 Allergy status to penicillin
CPT/HCPCS: 93005; 99285

== ENCOUNTER 2017-11-13 04:36 | Emergency (ER) | payer MEDICARE, OTHER ==
[2017-11-13 04:45] VITALS: TEMP 97.1
[2017-11-13 05:06] VITALS: RESP 18
[2017-11-13] MEDS ORDERED: LORazepam 2 MG/ML INJ IV STA (05:09)
--- NOTE | 2017-11-13 05:13 | ED ---
Arrhythmia/Palpitations HPI - General Chief Complaint: Arrhythmia/Palpitations Stated Complaint: heart palpitations Time Seen by Provider: 11/13/17 04:57 Source: patient Mode of arrival: ambulatory Limitations: no limitations - History of Present Illness Initial Comments: 47 years old male complaining about the palpitation he said he had some T 1 AM in the morning he made a mistake also complaining about shortness of breath his right arm feels numb but is no loss of strength he denies any headaches no neck stiffness has some palpitation no chest pain as such he is short-winded and complaining of palpitation no abdominal pain no frequency or dysuria urgency dysuria no symptoms of TIA or CVA - Related Data Home Medications Medication Instructions Recorded Confirmed Lisinopril [Zestril] 10 mg PO QAM 06/06/14 11/13/17 Insulin Glargine [Lantus] 100 unit SQ HS 12/17/14 11/13/17 INSULIN LISPRO (HumaLOG) [HumaLOG] See Protocol SQ AC-TID 08/16/15 11/13/17 Divalproex Sodium [Depakote] 1,500 mg PO HS 01/10/17 11/13/17 traZODone HCL 50 mg PO HS 11/08/17 11/13/17 Docusate [Colace] 100 mg PO DAILY PRN 11/12/17 11/13/17 Previous Rx's Medication Instructions Recorded Acetaminophen-Codeine 300-30mg 1 tab PO Q6HR PRN #10 tablet 11/11/17 [Tylenol #3] Allergies Allergy/AdvReac Type Severity Reaction Status Date / Time bisacodyl Allergy dizziness Verified 11/13/17 07:16 [From Dulcolax (bisacodyl)] gabapentin Allergy seizures Verified 11/13/17 07:16 Penicillins Allergy Unknown Verified 11/13/17 07:16 Childhood clozapine [From Clozaril] AdvReac Severe Aggression Verified 11/13/17 07:16 Review of Systems ROS Statement: Those systems with pertinent positive or pertinent negative responses have been documented in the HPI. ROS Other: All systems not noted in ROS Statement are negative. Past Medical History Past Medical History: Asthma, Diabetes Mellitus, GERD/Reflux, Hypertension, Osteoarthritis (OA), Seizure Disorder, Skin Disorder, Sleep Apnea/CPAP/BIPAP Additional Past Medical History / Comment(s): LAST SEIZURE 28 YRS AGO. chronic back pain. DOES NOT USE CPAP. SPINAL STENOSIS, DDD IN BACK, SCOLIOSIS, IBS, poriasis, frequent urination History of Any Multi-Drug Resistant Organisms: None Reported Past Surgical History: Cholecystectomy, Heart Catheterization, Tonsillectomy Additional Past Surgical History / Comment(s): PAIN PROCEDURES. Past Anesthesia/Blood Transfusion Reactions: Motion Sickness Past Psychological History: ADD/ADHD, Schizophrenia Smoking Status: Former smoker Past Alcohol Use History: None Reported Past Drug Use History: None Reported - Past Family History Father Family Medical History: Unable to Obtain Additional Family Medical History / Comment(s): Father left home when pt was 5 yrs old. Mother Family Medical History: No Reported History Additional Family Medical History / Comment(s): Mother at age 55yrs of [place]. General Exam - General Exam Comments Initial Comments: General: The patient is awake and alert, in no distress, and does not appear acutely ill. Skin: Skin is warm and dry and no rashes or lesions are noted. Eye: Pupils are equal, round and reactive to light, extra-ocular movements are intact; there is normal conjunctiva bilaterally. Ears, nose, mouth and throat: There are moist mucous membranes and no oral lesions. Neck: The neck is supple, there is no tenderness or JVD. Cardiovascular: There is a regular rate and rhythm. No murmur, rub or gallop is appreciated. Respiratory: To auscultation bilateral, no wheezing no rhonchi no distress respiratory ko noticed Gastrointestinal: Soft, non-distended, non-tender abdomen without masses or organomegaly noted. There is no rebound or guarding present. Bowel sounds are unremarkable. Back: There is no tenderness to palpation in the midline. There is no obvious deformity. Musculoskeletal: Normal ROM, no tenderness, There is no pedal edema. There is no calf tenderness or swelling. No cords were appreciated. Neurological: CN II-XII intact, Cranial nerves III through XII are intact. There are no obvious motor or sensory deficits. Coordination appears grossly intact. Speech is normal. Psychiatric: Cooperative, appropriate mood & affect, normal judgment. Limitations: no limitations Course Vital Signs 11/13/17 11/13/17 04:42 05:05 Temperature 97.1 F L Pulse Rate 78 65 Respiratory 22 18 Rate Blood Pressure 219/100 169/89 O2 Sat by Pulse 98 100 Oximetry EKG Findings - EKG Comments: EKG Findings:: EKG is normal sinus rhythm, ventricular rate is 72 HI interval interval is 180 QRS duration is 116 QT/QTc is 412/451 review of this EKG does not reveal any ST elevation or ST depression Medical Decision Making - Lab Data Result diagrams: 11/13/17 04:53 11/13/17 04:53 Lab Results 11/13/17 11/13/17 11/13/17 Range/Units 04:53 04:53 04:53 WBC 9.1 (3.8-10.6) k/uL RBC 4.58 (4.30-5.90) m/uL Hgb 13.5 (13.0-17.5) gm/dL Hct 35.6 L (39.0-53.0) % MCV 77.7 L (80.0-100.0) fL MCH 29.5 (25.0-35.0) pg MCHC 38.0 H (31.0-37.0) g/dL RDW 13.3 (11.5-15.5) % Plt Count 161 (150-450) k/uL Neutrophils % 69 % Lymphocytes % 24 % Monocytes % 5 % Eosinophils % 1 % Basophils % 1 % Neutrophils # 6.3 (1.3-7.7) k/uL Lymphocytes # 2.1 (1.0-4.8) k/uL Monocytes # 0.4 (0-1.0) k/uL Eosinophils # 0.1 (0-0.7) k/uL Basophils # 0.1 (0-0.2) k/uL Hyperchromasia Marked Poikilocytosis Slight PT (9.0-12.0) sec INR (<1.2) APTT (22.0-30.0) sec Sodium 135 L (137-145) mmol/L Potassium 3.8 (3.5-5.1) mmol/L Chloride 102 (98-107) mmol/L Carbon Dioxide 24 (22-30) mmol/L Anion Gap 9 mmol/L BUN 10 (9-20) mg/dL Creatinine 0.78 (0.66-1.25) mg/dL Est GFR (CKD-EPI)AfAm >90 (>60 ml/min/1.73 sqM) Est GFR (CKD-EPI)NonAf >90 (>60 ml/min/1.73 sqM) Glucose 178 H (74-99) mg/dL Calcium 9.5 (8.4-10.2) mg/dL Magnesium 1.6 (1.6-2.3) mg/dL Total Bilirubin 2.3 H (0.2-1.3) mg/dL AST 31 (17-59) U/L ALT 58 (21-72) U/L Alkaline Phosphatase 94 (38-126) U/L Total Creatine Kinase 188 H (55-170) U/L CK-MB (CK-2) 2.9 H* (0.0-2.4) ng/mL CK-MB (CK-2) Rel Index 1.5 Troponin I <0.012 (0.000-0.034) ng/mL Total Protein 6.3 (6.3-8.2) g/dL Albumin 3.9 (3.5-5.0) g/dL TSH 2.130 (0.465-4.680) mIU/L 11/13/17 Range/Units 04:53 WBC (3.8-10.6) k/uL RBC (4.30-5.90) m/uL Hgb (13.0-17.5) gm/dL Hct (39.0-53.0) % MCV (80.0-100.0) fL MCH (25.0-35.0) pg MCHC (31.0-37.0) g/dL RDW (11.5-15.5) % Plt Count (150-450) k/uL Neutrophils % % Lymphocytes % % Monocytes % % Eosinophils % % Basophils % % Neutrophils # (1.3-7.7) k/uL Lymphocytes # (1.0-4.8) k/uL Monocytes # (0-1.0) k/uL Eosinophils # (0-0.7) k/uL Basophils # (0-0.2) k/uL Hyperchromasia Poikilocytosis PT 10.5 (9.0-12.0) sec INR 1.1 (<1.2) APTT 24.7 (22.0-30.0) sec Sodium (137-145) mmol/L Potassium (3.5-5.1) mmol/L Chloride (98-107) mmol/L Carbon Dioxide (22-30) mmol/L Anion Gap mmol/L BUN (9-20) mg/dL Creatinine (0.66-1.25) mg/dL Est GFR (CKD-EPI)AfAm (>60 ml/min/1.73 sqM) Est GFR (CKD-EPI)NonAf (>60 ml/min/1.73 sqM) Glucose (74-99) mg/dL Calcium (8.4-10.2) mg/dL Magnesium (1.6-2.3) mg/dL Total Bilirubin (0.2-1.3) mg/dL AST (17-59) U/L ALT (21-72) U/L Alkaline Phosphatase (38-126) U/L Total Creatine Kinase (55-170) U/L CK-MB (CK-2) (0.0-2.4) ng/mL CK-MB (CK-2) Rel Index Troponin I (0.000-0.034) ng/mL Total Protein (6.3-8.2) g/dL Albumin (3.5-5.0) g/dL TSH (0.465-4.680) mIU/L Disposition Clinical Impression: Palpitation, Hypertension Disposition: HOME SELF-CARE Condition: Good Instructions: Palpitations (ED) Referrals: Brandon Mcpherson MD [Primary Care Provider] - 1-2 days
[2017-11-13 05:48] LABS: Basophils # (A) 0.1 k/uL (0-0.2); Basophils % (A) 1 %; Eosinophils # (A) 0.1 k/uL (0-0.7); Eosinophils % (A) 1 %; HCT 35.6 % (39.0-53.0); HGB 13.5 gm/dL (13.0-17.5); Hyperchromasia Marked; Lymphocytes # (A) 2.1 k/uL (1.0-4.8); Lymphocytes % (A) 24 %; MCH 29.5 pg (25.0-35.0); MCV 77.7 fL (80.0-100.0); Mean Platelet Volume 7.1; Monocytes # (A) 0.4 k/uL (0-1.0); Monocytes % (A) 5 %; Neutrophils # (A) 6.3 k/uL (1.3-7.7); Neutrophils % (A) 69 %; Platelet Count 161 k/uL (150-450); Poikilocytosis Slight; RBC 4.58 m/uL (4.30-5.90); RDW 13.3 % (11.5-15.5); WBC 9.1 k/uL (3.8-10.6)
[2017-11-13 05:59] LABS: ALT 58 U/L (21-72); AST 31 U/L (17-59); Albumin 3.9 g/dL (3.5-5.0); Alkaline Phosphatase 94 U/L (38-126); Anion Gap 9 mmol/L; Blood Urea Nitrogen 10 mg/dL (9-20); Calcium 9.5 mg/dL (8.4-10.2); Carbon Dioxide 24 mmol/L (22-30); Chloride 102 mmol/L (98-107); Glucose 178 mg/dL (74-99); Magnesium 1.6 mg/dL (1.6-2.3); Potassium 3.8 mmol/L (3.5-5.1); Sodium 135 mmol/L (137-145); Total Bilirubin 2.3 mg/dL (0.2-1.3); Total Protein 6.3 g/dL (6.3-8.2)
[2017-11-13 06:02] LABS: INR 1.1 (<1.2); Partial Thromboplastin Time 24.7 sec (22.0-30.0); Prothrombin Time 10.5 sec (9.0-12.0)
[2017-11-13 06:13] LABS: Creatine Kinase 188 U/L (55-170)
[2017-11-13 06:25] LABS: Troponin I <0.012 ng/mL (0.000-0.034)
[2017-11-13 06:27] LABS: Creatine Kinase MB 2.9 ng/mL (0.0-2.4)
--- NOTE | 2017-11-13 06:28 | XR ---
EXAM: XR Chest, 2 Views CLINICAL HISTORY: Dysrhythmia. TECHNIQUE: Frontal and lateral views of the chest. COMPARISON: CXR dated 11/03/2017. FINDINGS: Lungs: No evidence of focal consolidation. No evidence of pulmonary edema. Pleural space: No significant pleural effusion. No pneumothorax. Heart: Stable cardiac silhouette size. No cardiomegaly. Mediastinum: Unremarkable. Bones/joints: Unremarkable. IMPRESSION: No radiographic evidence of acute chest abnormality.
[2017-11-13 07:25] VITALS: BP 148/74; PULSE 76
== END 2017-11-13 07:39 | disposition home or self-care (01) ==
LOC: EC 04:36
DX: I10 Essential (primary) hypertension (principal); R00.2 Palpitations; J45.909 Unspecified asthma, uncomplicated; E11.9 Type 2 diabetes mellitus without complications; G40.909 Epilepsy, unspecified, not intractable, without status epilepticus; G47.30 Sleep apnea, unspecified; Z99.89 Dependence on other enabling machines and devices; Z95.5 Presence of coronary angioplasty implant and graft; Z87.891 Personal history of nicotine dependence; Z79.4 Long term (current) use of insulin; Z79.899 Other long term (current) drug therapy; Z88.8 Allergy status to other drugs, medicaments and biological substances; Z88.0 Allergy status to penicillin
CPT/HCPCS: 36415; 80053; 82550; 82553; 83735; 84443; 84484; 85025; 85610; 85730; 71046; 99285; 96374; J2060

== ENCOUNTER 2017-11-16 08:38 | Emergency (ER) | payer MEDICARE, OTHER ==
[2017-11-16 08:46] VITALS: RESP 18; TEMP 97.2
[2017-11-16] MEDS ORDERED: SODIUM CHLORIDE 0.9% 1,000 ML IV STA (09:08)
[2017-11-16 09:53] LABS: Appearance,Urine Clear (Clear); Basophils % (A) 1 %; Bilirubin,Urine Negative (Negative); Blood,Urine Negative (Negative); Color,Urine Light Yellow; Eosinophils # (A) 0.1 k/uL (0-0.7); Eosinophils % (A) 2 %; Glucose,Urine (UA) Trace (Negative); HCT 33.6 % (39.0-53.0); HGB 12.4 gm/dL (13.0-17.5); Hyperchromasia Slight; Ketones,Urine Negative (Negative); Leukocyte Esterase,Urine Negative (Negative); Lymphocytes # (A) 1.6 k/uL (1.0-4.8); Lymphocytes % (A) 31 %; MCH 29.2 pg (25.0-35.0); MCHC 36.8 g/dL (31.0-37.0); MCV 79.4 fL (80.0-100.0); Monocytes # (A) 0.3 k/uL (0-1.0); Monocytes % (A) 6 %; Neutrophils # (A) 3.1 k/uL (1.3-7.7); Neutrophils % (A) 59 %; Nitrite,Urine Negative (Negative); PH, Urine 5.5 (5.0-8.0); Platelet Count 122 k/uL (150-450); Protein,Urine Negative (Negative); RBC 4.23 m/uL (4.30-5.90); RDW 13.6 % (11.5-15.5); Specific Gravity,Urine 1.004 (1.001-1.035); Urobilinogen,Urine <2.0 mg/dL (<2.0); WBC 5.3 k/uL (3.8-10.6)
[2017-11-16 10:04] LABS: Partial Thromboplastin Time 24.7 sec (22.0-30.0); Prothrombin Time 10.3 sec (9.0-12.0)
[2017-11-16 10:06] LABS: ALT 46 U/L (21-72); AST 27 U/L (17-59); Albumin 3.5 g/dL (3.5-5.0); Alkaline Phosphatase 80 U/L (38-126); Anion Gap 10 mmol/L; Blood Urea Nitrogen 7 mg/dL (9-20); Calcium 9.2 mg/dL (8.4-10.2); Carbon Dioxide 24 mmol/L (22-30); Chloride 105 mmol/L (98-107); Glucose 118 mg/dL (74-99); Lipase 81 U/L (23-300); Sodium 139 mmol/L (137-145); Total Bilirubin 1.1 mg/dL (0.2-1.3); Total Protein 5.8 g/dL (6.3-8.2)
--- NOTE | 2017-11-16 10:18 | ED ---
General Adult HPI - General Chief complaint: Abdominal Pain Stated complaint: LEFT ARM NUMBNESS, ABDOMINAL PAIN, HEADACHE Time Seen by Provider: 11/16/17 09:02 Source: patient, RN notes reviewed Mode of arrival: ambulatory Limitations: no limitations - History of Present Illness Initial comments: Patient's 47-year-old male who presents emergency room today with multiple complaints. Patient does admit that he's had some constipation over the last 2 days. He states that his last bowel movement was 2 days ago. Patient states that he's also noticed some left arm numbness tingling that started last night and he woke up this morning with a headache. Patient states the numbness and tingling is from the left elbow down to the left pinky. States feels a pins and needles. Patient does admit that he's had bouts constipation the past. He denies having the numbness tingling or headache in the past. Patient denies any complaints currently. Does admit that he's been seen recently in the emergency room for abdominal pain. Patient denies any recent fever, chills, shortness of breath, chest pain, back pain, abdominal pain, nausea or vomiting, dysuria or hematuria, constipation or diarrhea, visual changes, or any other complaints. - Related Data Home Medications Medication Instructions Recorded Confirmed Lisinopril [Zestril] 10 mg PO QAM 06/06/14 11/13/17 Insulin Glargine [Lantus] 100 unit SQ HS 12/17/14 11/13/17 INSULIN LISPRO (HumaLOG) [HumaLOG] See Protocol SQ AC-TID 08/16/15 11/13/17 Divalproex Sodium [Depakote] 1,500 mg PO HS 01/10/17 11/13/17 traZODone HCL 50 mg PO HS 11/08/17 11/13/17 Docusate [Colace] 100 mg PO DAILY PRN 11/12/17 11/13/17 Previous Rx's Medication Instructions Recorded Acetaminophen-Codeine 300-30mg 1 tab PO Q6HR PRN #10 tablet 11/11/17 [Tylenol #3] Lactulose 10 gm PO DAILY 5 Days ml 11/16/17 Allergies Allergy/AdvReac Type Severity Reaction Status Date / Time bisacodyl Allergy dizziness Verified 11/16/17 08:42 [From Dulcolax (bisacodyl)] gabapentin Allergy seizures Verified 11/16/17 08:42 Penicillins Allergy Unknown Verified 11/16/17 08:42 Childhood clozapine [From Clozaril] AdvReac Severe Aggression Verified 11/16/17 08:42 Review of Systems ROS Statement: Those systems with pertinent positive or pertinent negative responses have been documented in the HPI. ROS Other: All systems not noted in ROS Statement are negative. Past Medical History Past Medical History: Asthma, Diabetes Mellitus, GERD/Reflux, Hypertension, Osteoarthritis (OA), Seizure Disorder, Skin Disorder, Sleep Apnea/CPAP/BIPAP Additional Past Medical History / Comment(s): LAST SEIZURE 28 YRS AGO. chronic back pain. DOES NOT USE CPAP. SPINAL STENOSIS, DDD IN BACK, SCOLIOSIS, IBS, poriasis, frequent urination History of Any Multi-Drug Resistant Organisms: None Reported Past Surgical History: Cholecystectomy, Heart Catheterization, Tonsillectomy Additional Past Surgical History / Comment(s): PAIN PROCEDURES. Past Anesthesia/Blood Transfusion Reactions: Motion Sickness Past Psychological History: ADD/ADHD, Schizophrenia Smoking Status: Former smoker Past Alcohol Use History: None Reported Past Drug Use History: None Reported - Past Family History Father Family Medical History: Unable to Obtain Additional Family Medical History / Comment(s): Father left home when pt was 5 yrs old. Mother Family Medical History: No Reported History Additional Family Medical History / Comment(s): Mother at age 55yrs of [place]. General Exam - General Exam Comments Initial Comments: General: The patient is awake and alert, in no distress, and does not appear acutely ill. Eye: Pupils are equal, round and reactive to light, extra-ocular movements are intact. No nystagmus. There is normal conjunctiva bilaterally. No signs of icterus. Ears, nose, mouth and throat: There are moist mucous membranes and no oral lesions. Neck: The neck is supple, there is no tenderness or JVD. Cardiovascular: There is a regular rate and rhythm. No murmur, rub or gallop is appreciated. Respiratory: Lungs are clear to auscultation, respirations are non-labored, breath sounds are equal. No wheezes, stridor, rales, or rhonchi. Gastrointestinal: Soft, non-distended, non-tender abdomen without masses or organomegaly noted. There is no rebound or guarding present. No CVA tenderness. Bowel sounds are unremarkable. Musculoskeletal: Normal ROM, no tenderness. Strength 5/5. Sensation intact. Pulses equal bilaterally 2+. Neurological: A&O x 3. CN II-XII intact, There are no obvious motor or sensory deficits. Coordination appears grossly intact. Speech is normal. Skin: Skin is warm and dry and no rashes or lesions are noted. Psychiatric: Cooperative, appropriate mood & affect, normal judgment. Limitations: no limitations Course Vital Signs 11/16/17 08:42 Temperature 97.2 F L Pulse Rate 71 Respiratory 18 Rate Blood Pressure 137/64 O2 Sat by Pulse 98 Oximetry Medical Decision Making - Medical Decision Making Case discussed in detail with attending physician Dr. Monzon. Patient reexamined at this time shows no signs of distress resting comfortably. Patient's CT is negative. Labs been reviewed unremarkable. EKG shows no acute abnormality. Results were discussed with the patient. Patient's had multiple ER visits past week. Patient admits some constipation type symptoms over the last 2 days. Patient will be discharged home with magnesium citrate. He is advised follow- up with the family doctor in the next 2 days. Advised return here to the emergency room if any symptoms increase or worsen. - Lab Data Result diagrams: 11/16/17 09:35 11/16/17 09:35 Lab Results 11/16/17 11/16/17 11/16/17 Range/Units 09:35 09:35 09:35 WBC 5.3 (3.8-10.6) k/uL RBC 4.23 L (4.30-5.90) m/uL Hgb 12.4 L (13.0-17.5) gm/dL Hct 33.6 L (39.0-53.0) % MCV 79.4 L (80.0-100.0) fL MCH 29.2 (25.0-35.0) pg MCHC 36.8 (31.0-37.0) g/dL RDW 13.6 (11.5-15.5) % Plt Count 122 L (150-450) k/uL Neutrophils % 59 % Lymphocytes % 31 % Monocytes % 6 % Eosinophils % 2 % Basophils % 1 % Neutrophils # 3.1 (1.3-7.7) k/uL Lymphocytes # 1.6 (1.0-4.8) k/uL Monocytes # 0.3 (0-1.0) k/uL Eosinophils # 0.1 (0-0.7) k/uL Basophils # 0.0 (0-0.2) k/uL Hyperchromasia Slight PT (9.0-12.0) sec INR (<1.2) APTT (22.0-30.0) sec Sodium 139 (137-145) mmol/L Potassium 4.0 (3.5-5.1) mmol/L Chloride 105 (98-107) mmol/L Carbon Dioxide 24 (22-30) mmol/L Anion Gap 10 mmol/L BUN 7 L (9-20) mg/dL Creatinine 0.80 (0.66-1.25) mg/dL Est GFR (CKD-EPI)AfAm >90 (>60 ml/min/1.73 sqM) Est GFR (CKD-EPI)NonAf >90 (>60 ml/min/1.73 sqM) Glucose 118 H (74-99) mg/dL Calcium 9.2 (8.4-10.2) mg/dL Total Bilirubin 1.1 (0.2-1.3) mg/dL AST 27 (17-59) U/L ALT 46 (21-72) U/L Alkaline Phosphatase 80 (38-126) U/L Total Creatine Kinase 124 (55-170) U/L CK-MB (CK-2) 1.6 (0.0-2.4) ng/mL CK-MB (CK-2) Rel Index 1.3 Troponin I (0.000-0.034) ng/mL Total Protein 5.8 L (6.3-8.2) g/dL Albumin 3.5 (3.5-5.0) g/dL Lipase 81 (23-300) U/L Urine Color Urine Appearance (Clear) Urine pH (5.0-8.0) Ur Specific Sharon (1.001-1.035) Urine Protein (Negative) Urine Glucose (UA) (Negative) Urine Ketones (Negative) Urine Blood (Negative) Urine Nitrite (Negative) Urine Bilirubin (Negative) Urine Urobilinogen (<2.0) mg/dL Ur Leukocyte Esterase (Negative) 11/16/17 11/16/17 11/16/17 Range/Units 09:35 09:35 09:35 WBC (3.8-10.6) k/uL RBC (4.30-5.90) m/uL Hgb (13.0-17.5) gm/dL Hct (39.0-53.0) % MCV (80.0-100.0) fL MCH (25.0-35.0) pg MCHC (31.0-37.0) g/dL RDW (11.5-15.5) % Plt Count (150-450) k/uL Neutrophils % % Lymphocytes % % Monocytes % % Eosinophils % % Basophils % % Neutrophils # (1.3-7.7) k/uL Lymphocytes # (1.0-4.8) k/uL Monocytes # (0-1.0) k/uL Eosinophils # (0-0.7) k/uL Basophils # (0-0.2) k/uL Hyperchromasia PT 10.3 (9.0-12.0) sec INR 1.0 (<1.2) APTT 24.7 (22.0-30.0) sec Sodium (137-145) mmol/L Potassium (3.5-5.1) mmol/L Chloride (98-107) mmol/L Carbon Dioxide (22-30) mmol/L Anion Gap mmol/L BUN (9-20) mg/dL Creatinine (0.66-1.25) mg/dL Est GFR (CKD-EPI)AfAm (>60 ml/min/1.73 sqM) Est GFR (CKD-EPI)NonAf (>60 ml/min/1.73 sqM) Glucose (74-99) mg/dL Calcium (8.4-10.2) mg/dL Total Bilirubin (0.2-1.3) mg/dL AST (17-59) U/L ALT (21-72) U/L Alkaline Phosphatase (38-126) U/L Total Creatine Kinase (55-170) U/L CK-MB (CK-2) (0.0-2.4) ng/mL CK-MB (CK-2) Rel Index Troponin I <0.012 (0.000-0.034) ng/mL Total Protein (6.3-8.2) g/dL Albumin (3.5-5.0) g/dL Lipase (23-300) U/L Urine Color Light Yellow Urine Appearance Clear (Clear) Urine pH 5.5 (5.0-8.0) Ur Specific Sharon 1.004 (1.001-1.035) Urine Protein Negative (Negative) Urine Glucose (UA) Trace H (Negative) Urine Ketones Negative (Negative) Urine Blood Negative (Negative) Urine Nitrite Negative (Negative) Urine Bilirubin Negative (Negative) Urine Urobilinogen <2.0 (<2.0) mg/dL Ur Leukocyte Esterase Negative (Negative) Disposition Clinical Impression: Abdominal pain, Paresthesia Disposition: HOME SELF-CARE Condition: Good Instructions: Abdominal Pain (ED) Additional Instructions: Please use medication as discussed. Please follow-up with family doctor in the next 2 days. Please return to emergency room if the symptoms increase or worsen or for any other concerns. Prescriptions: Lactulose 10 gm PO DAILY 5 Days ml Referrals: Brandon Mcpherson MD [Primary Care Provider] - 1-2 days Time of Disposition: 11:56
[2017-11-16 10:25] LABS: Creatine Kinase MB 1.6 ng/mL (0.0-2.4)
--- NOTE | 2017-11-16 10:48 | CT ---
EXAMINATION TYPE: CT brain wo con DATE OF EXAM: 11/16/2017 COMPARISON: NONE HISTORY: Headache CT DLP: 1116.00 mGycm Automated exposure control for dose reduction was used. FINDINGS: Central structures are midline. There is no evidence of hydrocephalus. No acute focal lesion, mass ef fect or midline shift is seen. I do not see evidence of intracranial blood. There is moderate vascula r calcification identified. Visualized portions of the paranasal sinuses and mastoids are clear. The bony calvarium is intact. IMPRESSION: NO ACUTE INTRACRANIAL ABNORMALITY.
--- NOTE | 2017-11-16 11:14 | XR ---
EXAMINATION TYPE: XR chest 2V DATE OF EXAM: 11/16/2017 HISTORY: Arm numbness. REFERENCE: Previous study dated 11/13/2017. FINDINGS: The lungs remain clear. Pleural space are clear. The heart is not enlarged. IMPRESSION: NO ACTIVE INTRATHORACIC DISEASE.
--- NOTE | 2017-11-16 11:15 | XR ---
EXAMINATION TYPE: XR KUB , 2 VIEWS DATE OF EXAM ORDERED: 11/16/2017 HISTORY: pain. COMPARISON: Previous study dated 10/28/2017. FINDINGS: The lung bases are clear. Within the abdomen, the gallbladder has been removed. The abdominal gas pattern is normal. There is no evidence of obstruction or free air. No unusual calc ifications are seen. IMPRESSION: NO ACUTE INTRA-ABDOMINAL ABNORMALITY.
[2017-11-16] MEDS ORDERED: MAGNESIUM CITRATE 296 ML BOTTLE PO ONE (11:54)
[2017-11-16 12:23] VITALS: BP 139/67; PULSE 66
== END 2017-11-16 12:24 | disposition home or self-care (01) ==
LOC: EC 08:38
DX: R10.9 Unspecified abdominal pain (principal); R20.2 Paresthesia of skin; K59.00 Constipation, unspecified; R51 Headache; E11.9 Type 2 diabetes mellitus without complications; I10 Essential (primary) hypertension; G40.909 Epilepsy, unspecified, not intractable, without status epilepticus; Z87.891 Personal history of nicotine dependence; Z79.4 Long term (current) use of insulin; Z79.899 Other long term (current) drug therapy; Z88.0 Allergy status to penicillin; Z88.8 Allergy status to other drugs, medicaments and biological substances; Z90.49 Acquired absence of other specified parts of digestive tract
CPT/HCPCS: 36415; 70450; 71046; 74018; 80053; 81003; 82550; 82553; 83690; 84484; 85025; 85610; 85730; 93005; 96360; 96361; 99284

== ENCOUNTER 2017-11-17 14:59 | Emergency (ER) | payer MEDICARE, OTHER ==
--- NOTE | 2017-11-17 16:35 | ED ---
General Adult HPI - General Chief complaint: Abdominal Pain Stated complaint: revisit:Abd pain Time Seen by Provider: 11/17/17 16:21 Source: patient, RN notes reviewed Mode of arrival: ambulatory Limitations: no limitations - History of Present Illness Initial comments: Patient is a 47-year-old male who presents emergency room today with a chief complaint of possible reaction to medication that was given yesterday. Patient has been seen in the emergency room multiple times recently this past week for complaints of abdominal pain patient states he was constipated yesterday. Was given a prescription for lactulose. States he did take this was a little bowel movement woke up with a rash. He states rashes cleared. He states he did call his family doctor advised not to take medication again. He does admit that he did have bowel movement. He states he is still expresses some cramping in the lower abdomen. Patient denies any other complaints or associated symptoms. Patient denies any recent fever, chills, shortness of breath, chest pain, numbness or tingling, dysuria or hematuria, headaches or visual changes, or any other complaints. - Related Data Home Medications Medication Instructions Recorded Confirmed Lisinopril [Zestril] 10 mg PO QAM 06/06/14 11/17/17 Insulin Glargine [Lantus] 100 unit SQ HS 12/17/14 11/17/17 INSULIN LISPRO (HumaLOG) [HumaLOG] See Protocol SQ AC-TID 08/16/15 11/17/17 Divalproex Sodium [Depakote] 500 mg PO TID 01/10/17 11/17/17 traZODone HCL 50 mg PO HS 11/08/17 11/17/17 Cetirizine HCl [Zyrtec] 10 mg PO DAILY 11/17/17 11/17/17 Ibuprofen [Motrin] 600 mg PO Q6HR PRN 11/17/17 11/17/17 diphenhydrAMINE HCL 25 mg PO TID PRN 11/17/17 11/17/17 [Diphenhydramine HCl] Allergies Allergy/AdvReac Type Severity Reaction Status Date / Time bisacodyl Allergy dizziness Verified 11/17/17 16:09 [From Dulcolax (bisacodyl)] gabapentin Allergy seizures Verified 11/17/17 16:09 lactulose Allergy Rash/Hives Verified 11/17/17 16:09 Penicillins Allergy Unknown Verified 11/17/17 16:09 Childhood clozapine [From Clozaril] AdvReac Severe Aggression Verified 11/17/17 16:09 Review of Systems ROS Statement: Those systems with pertinent positive or pertinent negative responses have been documented in the HPI. ROS Other: All systems not noted in ROS Statement are negative. Past Medical History Past Medical History: Asthma, Diabetes Mellitus, GERD/Reflux, Hypertension, Osteoarthritis (OA), Seizure Disorder, Skin Disorder, Sleep Apnea/CPAP/BIPAP Additional Past Medical History / Comment(s): LAST SEIZURE 28 YRS AGO. chronic back pain. DOES NOT USE CPAP. SPINAL STENOSIS, DDD IN BACK, SCOLIOSIS, IBS, poriasis, frequent urination History of Any Multi-Drug Resistant Organisms: None Reported Past Surgical History: Cholecystectomy, Heart Catheterization, Tonsillectomy Additional Past Surgical History / Comment(s): PAIN PROCEDURES. Past Anesthesia/Blood Transfusion Reactions: Motion Sickness Past Psychological History: ADD/ADHD, Schizophrenia Smoking Status: Former smoker Past Alcohol Use History: None Reported Past Drug Use History: None Reported - Past Family History Father Family Medical History: Unable to Obtain Additional Family Medical History / Comment(s): Father left home when pt was 5 yrs old. Mother Family Medical History: No Reported History Additional Family Medical History / Comment(s): Mother at age 55yrs of [place]. General Exam - General Exam Comments Initial Comments: General: The patient is awake and alert, in no distress, and does not appear acutely ill. Eye: Pupils are equal, round and reactive to light, extra-ocular movements are intact. No nystagmus. There is normal conjunctiva bilaterally. No signs of icterus. Ears, nose, mouth and throat: There are moist mucous membranes and no oral lesions. Neck: The neck is supple, there is no tenderness or JVD. Cardiovascular: There is a regular rate and rhythm. No murmur, rub or gallop is appreciated. Respiratory: Lungs are clear to auscultation, respirations are non-labored, breath sounds are equal. No wheezes, stridor, rales, or rhonchi. Gastrointestinal: Soft, non-distended, non-tender abdomen without masses or organomegaly noted. There is no rebound or guarding present. No CVA tenderness. Musculoskeletal: Normal ROM, no tenderness. Strength 5/5. Sensation intact. Pulses equal bilaterally 2+. Neurological: A&O x 3. CN II-XII intact, There are no obvious motor or sensory deficits. Coordination appears grossly intact. Speech is normal. Skin: Skin is warm and dry and no rashes or lesions are noted. Psychiatric: Cooperative, appropriate mood & affect, normal judgment. Limitations: no limitations Course Vital Signs 11/17/17 15:21 Temperature 97.3 F L Pulse Rate 69 Respiratory 18 Rate Blood Pressure 136/67 O2 Sat by Pulse 97 Oximetry Medical Decision Making - Medical Decision Making Patient has been seen multiple times here in the emergency room this past week. This is his seventh visit to the ER in 8 days. Patient does admit that he had a fall movement last night after taking nitros but woke up with a rash. He states he still expresses some cramping off and on in his abdomen. His abdomen soft on palpation. Patient's labs from yesterday were reviewed were unremarkable. Patient's vitals are stable at this time. Advised patient to increase oral intake. Advised follow-up family doctor last 2 days returning for any other concerns. Disposition Clinical Impression: Abdominal pain Disposition: HOME SELF-CARE Condition: Good Instructions: Abdominal Pain (ED) Additional Instructions: Please increase oral intake as discussed. Please follow-up family doctor over the next 2 days for symptoms are not improving or return here to emergency room for new concerns. Referrals: Brandon Mcpherson MD [Primary Care Provider] - 1-2 days Time of Disposition: 16:34
[2017-11-17 17:03] VITALS: BP 138/78; PULSE 71; RESP 16; TEMP 98.1
== END 2017-11-17 17:02 | disposition home or self-care (01) ==
LOC: EC 14:59
DX: R10.30 Lower abdominal pain, unspecified (principal); I10 Essential (primary) hypertension; E11.9 Type 2 diabetes mellitus without complications; G40.909 Epilepsy, unspecified, not intractable, without status epilepticus; Z87.891 Personal history of nicotine dependence; Z79.4 Long term (current) use of insulin; Z79.899 Other long term (current) drug therapy; Z88.0 Allergy status to penicillin; Z88.8 Allergy status to other drugs, medicaments and biological substances; Z91.011 Allergy to milk products; Z90.49 Acquired absence of other specified parts of digestive tract
CPT/HCPCS: 99283

== ENCOUNTER 2017-11-24 05:25 | Emergency (ER) | payer MEDICARE, OTHER ==
[2017-11-24 05:34] VITALS: TEMP 97.9
[2017-11-24] MEDS ORDERED: FAMOTIDINE 20 MG/2 ML VIAL IV STA (06:10)
[2017-11-24 06:21] LABS: Glucose,Whole Blood 101 mg/dL (75-99)
[2017-11-24 06:38] VITALS: RESP 16
[2017-11-24] MEDS ORDERED: IBUPROFEN 400 MG TAB PO STA (06:46)
--- NOTE | 2017-11-24 07:13 | ED ---
Allergic Reaction HPI - General Chief complaint: Allergic Reaction Stated complaint: Allergic Reaction Time Seen by Provider: 11/24/17 05:36 Source: patient, EMS Mode of arrival: EMS Limitations: no limitations - History of Present Illness Initial Comments: This patient is a 47-year-old man who presents to be evaluated for what he suspects is an adverse reaction to taking linzess. The patient states that he had been having some constipation type pain so he had taken a dose of Linzess last night, and then when he did not have relief of symptoms, he ended up taking another in the early hours of this morning. Following that second dose of medication he states that he began having some itching of the skin, feeling anxious. A friend of his then recommended that he take a dose of Fioricet which belongs to his friend, and he has not taken before. Following this he states that the symptoms worsened, he felt like his face was swelling and that he was having some body aches. MD Complaint: allergic reaction -: hour(s) Exposure: medication Symptoms: itching Severity: moderate Treatment Prior to Arrival: none Previous Allergy History: none - Related Data Home Medications Medication Instructions Recorded Confirmed Lisinopril [Zestril] 10 mg PO QAM 06/06/14 11/22/17 Insulin Glargine [Lantus] 100 unit SQ HS 12/17/14 11/22/17 INSULIN LISPRO (HumaLOG) [HumaLOG] See Protocol SQ AC-TID 08/16/15 11/22/17 Divalproex Sodium [Depakote] 500 mg PO TID 01/10/17 11/22/17 traZODone HCL 50 mg PO HS 11/08/17 11/22/17 Cetirizine HCl [Zyrtec] 10 mg PO DAILY 11/17/17 11/22/17 Ibuprofen [Motrin] 600 mg PO Q6HR PRN 11/17/17 11/22/17 diphenhydrAMINE HCL 25 mg PO TID PRN 11/17/17 11/22/17 [Diphenhydramine HCl] Allergies Allergy/AdvReac Type Severity Reaction Status Date / Time bisacodyl Allergy dizziness Verified 11/22/17 10:37 [From Dulcolax (bisacodyl)] gabapentin Allergy seizures Verified 11/22/17 10:37 lactulose Allergy Rash/Hives Verified 11/22/17 10:37 Penicillins Allergy Unknown Verified 11/22/17 10:37 Childhood clozapine [From Clozaril] AdvReac Severe Aggression Verified 11/22/17 10:37 Review of Systems ROS Statement: Those systems with pertinent positive or pertinent negative responses have been documented in the HPI. ROS Other: All systems not noted in ROS Statement are negative. Constitutional: Denies: fever, chills, weakness ENT: Denies: throat pain Respiratory: Denies: cough, dyspnea Cardiovascular: Denies: chest pain, palpitations, edema Gastrointestinal: Denies: abdominal pain, nausea, vomiting Genitourinary: Denies: dysuria Musculoskeletal: Reports: myalgia. Denies: back pain Skin: Reports: pruritus Neurological: Denies: headache, weakness, numbness Past Medical History Past Medical History: Asthma, Diabetes Mellitus, GERD/Reflux, Hypertension, Osteoarthritis (OA), Seizure Disorder, Skin Disorder, Sleep Apnea/CPAP/BIPAP Additional Past Medical History / Comment(s): LAST SEIZURE 28 YRS AGO. chronic back pain. DOES NOT USE CPAP. SPINAL STENOSIS, DDD IN BACK, SCOLIOSIS, IBS, poriasis, frequent urination History of Any Multi-Drug Resistant Organisms: None Reported Past Surgical History: Cholecystectomy, Heart Catheterization, Tonsillectomy Additional Past Surgical History / Comment(s): PAIN PROCEDURES. Past Anesthesia/Blood Transfusion Reactions: Motion Sickness Past Psychological History: ADD/ADHD, Schizophrenia, Depression, Schizophrenia Smoking Status: Former smoker Past Alcohol Use History: None Reported Past Drug Use History: None Reported - Past Family History Father Family Medical History: Unable to Obtain Additional Family Medical History / Comment(s): Father left home when pt was 5 yrs old. Mother Family Medical History: No Reported History Additional Family Medical History / Comment(s): Mother at age 55yrs of [place]. General Exam Limitations: no limitations General appearance: alert, in no apparent distress Head exam: Present: atraumatic, normocephalic Eye exam: Present: normal appearance. Absent: scleral icterus, conjunctival injection ENT exam: Present: normal oropharynx Neck exam: Present: normal inspection, full ROM Respiratory exam: Present: normal lung sounds bilaterally. Absent: respiratory distress, wheezes, rales, rhonchi, stridor Cardiovascular Exam: Present: regular rate, normal rhythm, normal heart sounds. Absent: systolic murmur, diastolic murmur, rubs, gallop GI/Abdominal exam: Present: soft. Absent: distended, tenderness, guarding, rebound, mass Extremities exam: Present: normal inspection, normal capillary refill. Absent: pedal edema, calf tenderness Back exam: Absent: CVA tenderness (R), CVA tenderness (L) Neurological exam: Present: alert Psychiatric exam: Present: normal affect Skin exam: Present: warm, dry, intact, normal color. Absent: rash Course Vital Signs 11/24/17 11/24/17 11/24/17 05:27 05:34 06:36 Temperature 97.9 F Pulse Rate 64 57 L Respiratory 18 18 16 Rate Blood Pressure 163/77 156/72 O2 Sat by Pulse 100 100 Oximetry Medical Decision Making - Lab Data Lab Results 11/24/17 Range/Units 06:18 POC Glucose (mg/dL) 101 H (75-99) mg/dL POC Glu [employer] Asst Slick [place] Disposition Clinical Impression: Adverse reaction to drug Disposition: HOME SELF-CARE Condition: Good Instructions: General Allergic Reaction (ED) Referrals: Brandon Mcpherson MD [Primary Care Provider] - 1-2 days
--- NOTE | 2017-11-24 08:10 | XR ---
EXAMINATION TYPE: XR KUB , 2 VIEWS DATE OF EXAM ORDERED: 11/24/2017 HISTORY: Pain. COMPARISON: Previous study dated 11/16/2017. FINDINGS: The lung bases are clear. Within the abdomen, there are nondistended air-filled loops of large and small bowel. There is no vida dence of obstruction or free air. There are phleboliths within the pelvis. IMPRESSION: FINDINGS MOST LIKELY REFLECT EARLY ILEUS.
[2017-11-24 08:34] VITALS: BP 148/73; PULSE 62
== END 2017-11-24 08:35 | disposition home or self-care (01) ==
LOC: EC 05:25
DX: L29.9 Pruritus, unspecified (principal); T50.905A Adverse effect of unspecified drugs, medicaments and biological substances, initial encounter; E11.9 Type 2 diabetes mellitus without complications; I10 Essential (primary) hypertension; G40.909 Epilepsy, unspecified, not intractable, without status epilepticus; G47.30 Sleep apnea, unspecified; Z99.89 Dependence on other enabling machines and devices; F32.9 Major depressive disorder, single episode, unspecified; F90.9 Attention-deficit hyperactivity disorder, unspecified type; Z95.5 Presence of coronary angioplasty implant and graft; Z87.891 Personal history of nicotine dependence; Z79.4 Long term (current) use of insulin; Z79.899 Other long term (current) drug therapy; Z88.8 Allergy status to other drugs, medicaments and biological substances; Z91.011 Allergy to milk products; Z88.0 Allergy status to penicillin
CPT/HCPCS: 36415; 74018; 96374; 99284

== ENCOUNTER 2017-11-27 09:42 | Emergency (ER) | payer MEDICARE, OTHER ==
[2017-11-27 09:53] VITALS: BP 113/83; PULSE 74; RESP 16; TEMP 98
[2017-11-27] MEDS ORDERED: MAGNESIUM CITRATE 296 ML BOTTLE PO ONE (10:32)
--- NOTE | 2017-11-27 10:37 | ED ---
Abdominal Pain HPI - General Chief Complaint: Abdominal Pain Stated Complaint: Abdominal pain Time Seen by Provider: 11/27/17 10:01 Source: patient, RN notes reviewed Mode of arrival: ambulatory Limitations: no limitations - History of Present Illness Initial Comments: Patient 47-year-old male presents to the emergency room today with a chief complaint of constipation. Patient does admit that he's had same symptoms now for several weeks. He said multiple visits here to the emergency room. She is family doctor yesterday. States he does have an appointment with GI tomorrow. Patient states having the same symptoms today denies anything that is new or different. He states he did have a small bowel movement yesterday. Patient states feels cramping and pain in the lower abdomen. States she was taking Tylenol before and did give him some relief but he has run out. She states does not have any money for this medication. Patient denies any other complaints or symptoms currently. Patient denying any new symptoms today. Patient denies any recent fever, chills, shortness of breath, chest pain, back pain, numbness or tingling, dysuria or hematuria, headaches or visual changes, or any other complaints. - Related Data Home Medications Medication Instructions Recorded Confirmed Lisinopril [Zestril] 10 mg PO QAM 06/06/14 11/27/17 Insulin Glargine [Lantus] 100 unit SQ HS 12/17/14 11/27/17 INSULIN LISPRO (HumaLOG) [HumaLOG] See Protocol SQ AC-TID 08/16/15 11/27/17 Divalproex Sodium [Depakote] 500 mg PO TID 01/10/17 11/27/17 traZODone HCL 50 mg PO HS 11/08/17 11/27/17 Cetirizine HCl [Zyrtec] 10 mg PO DAILY 11/17/17 11/27/17 diphenhydrAMINE HCL 25 mg PO TID PRN 11/17/17 11/27/17 [Diphenhydramine HCl] Linaclotide [Linzess] 72 mcg PO HS 11/24/17 11/27/17 Previous Rx's Medication Instructions Recorded Acetaminophen Tab [Tylenol] 1,000 mg PO TID 5 Days tablet 11/27/17 Simethicone [Gas-X] 125 mg PO QID #10 capsule 11/27/17 Allergies Allergy/AdvReac Type Severity Reaction Status Date / Time bisacodyl Allergy dizziness Verified 11/27/17 10:09 [From Dulcolax (bisacodyl)] gabapentin Allergy seizures Verified 11/27/17 10:09 lactulose Allergy Rash/Hives Verified 11/27/17 10:09 Penicillins Allergy Unknown Verified 11/27/17 10:09 Childhood clozapine [From Clozaril] AdvReac Severe Aggression Verified 11/27/17 10:09 Review of Systems ROS Statement: Those systems with pertinent positive or pertinent negative responses have been documented in the HPI. ROS Other: All systems not noted in ROS Statement are negative. Past Medical History Past Medical History: Asthma, Diabetes Mellitus, GERD/Reflux, Hypertension, Osteoarthritis (OA), Seizure Disorder, Skin Disorder, Sleep Apnea/CPAP/BIPAP Additional Past Medical History / Comment(s): LAST SEIZURE 28 YRS AGO. chronic back pain. DOES NOT USE CPAP. SPINAL STENOSIS, DDD IN BACK, SCOLIOSIS, IBS, poriasis, frequent urination History of Any Multi-Drug Resistant Organisms: None Reported Past Surgical History: Cholecystectomy, Heart Catheterization, Tonsillectomy Additional Past Surgical History / Comment(s): PAIN PROCEDURES. Past Anesthesia/Blood Transfusion Reactions: Motion Sickness Past Psychological History: ADD/ADHD, Schizophrenia, Depression, Schizophrenia Smoking Status: Former smoker Past Alcohol Use History: None Reported Past Drug Use History: None Reported - Past Family History Father Family Medical History: Unable to Obtain Additional Family Medical History / Comment(s): Father left home when pt was 5 yrs old. Mother Family Medical History: No Reported History Additional Family Medical History / Comment(s): Mother at age 55yrs of [place]. General Exam - General Exam Comments Initial Comments: General: The patient is awake and alert, in no distress, and does not appear acutely ill. Eye: Pupils are equal, round and reactive to light, extra-ocular movements are intact. No nystagmus. There is normal conjunctiva bilaterally. No signs of icterus. Ears, nose, mouth and throat: There are moist mucous membranes and no oral lesions. Neck: The neck is supple, there is no tenderness or JVD. Cardiovascular: There is a regular rate and rhythm. No murmur, rub or gallop is appreciated. Respiratory: Lungs are clear to auscultation, respirations are non-labored, breath sounds are equal. No wheezes, stridor, rales, or rhonchi. Gastrointestinal: Soft, non-distended, non-tender abdomen without masses or organomegaly noted. There is no rebound or guarding present. No CVA tenderness. Bowel sounds are unremarkable. Musculoskeletal: Normal ROM, no tenderness. Strength 5/5. Sensation intact. Pulses equal bilaterally 2+. Neurological: A&O x 3. CN II-XII intact, There are no obvious motor or sensory deficits. Coordination appears grossly intact. Speech is normal. Skin: Skin is warm and dry and no rashes or lesions are noted. Psychiatric: Cooperative, appropriate mood & affect, normal judgment. Limitations: no limitations Course Vital Signs 11/27/17 09:50 Temperature 98 F Pulse Rate 74 Respiratory 16 Rate Blood Pressure 113/83 O2 Sat by Pulse 98 Oximetry Medical Decision Making - Medical Decision Making Patient's abdomen is soft to the emergency room. He admits that he's had these symptoms. He said multiple visits for the same. Over the past 2 weeks. Patient states he does not want have his blood drawn. Advised patient that we could give him a laxative of magnesium citrate for symptoms. He does have an appointment with GI tomorrow. She is to have bowel movement yesterday. Patient will be given a prescription for Tylenol also Gas-X. Advised to follow- up with GI tomorrow return for any other concerns. Disposition Clinical Impression: Abdominal pain Disposition: HOME SELF-CARE Condition: Good Instructions: Abdominal Pain (ED) Additional Instructions: Please follow-up with Dr. Evangelista tomorrow with her scheduled appointment. Please use medication as discussed. Please try to emergency room for any other concerns. Prescriptions: Acetaminophen Tab [Tylenol] 1,000 mg PO TID 5 Days tablet Simethicone [Gas-X] 125 mg PO QID #10 capsule Referrals: Brandon Mcpherson MD [Primary Care Provider] - 1-2 days Adams Evangelista MD [STAFF PHYSICIAN] - 1-2 days Time of Disposition: 10:34
== END 2017-11-27 10:51 | disposition home or self-care (01) ==
LOC: EC 09:42
DX: R10.30 Lower abdominal pain, unspecified (principal); E11.9 Type 2 diabetes mellitus without complications; I10 Essential (primary) hypertension; G40.909 Epilepsy, unspecified, not intractable, without status epilepticus; G47.30 Sleep apnea, unspecified; Z99.89 Dependence on other enabling machines and devices; F90.9 Attention-deficit hyperactivity disorder, unspecified type; F20.9 Schizophrenia, unspecified; F32.9 Major depressive disorder, single episode, unspecified; K21.9 Gastro-esophageal reflux disease without esophagitis; K58.9 Irritable bowel syndrome, unspecified; Z87.891 Personal history of nicotine dependence; Z79.4 Long term (current) use of insulin; Z79.899 Other long term (current) drug therapy; Z88.0 Allergy status to penicillin; Z88.8 Allergy status to other drugs, medicaments and biological substances; Z90.49 Acquired absence of other specified parts of digestive tract
CPT/HCPCS: 99283

== ENCOUNTER → 2017-11-29 | Outpatient (CLI) | payer MEDICARE, OTHER ==
--- NOTE | 2017-11-29 15:24 | CT ---
EXAMINATION TYPE: CT abdomen pelvis wo con DATE OF EXAM: 11/29/2017 HISTORY: Lower abdominal pain with difficulty urinating CT DLP: 1114.2 mGycm. Automated Exposure Control for Dose Reduction was Utilized. TECHNIQUE: CT scan of the abdomen and pelvis is performed without oral or IV contrast. COMPARISON: CT abdomen and pelvis November 11, 2017 FINDINGS: Within the limitations of a non-contrast study, the following observations are made. LUNG BASES: No significant abnormality is appreciated. LIVER/GB: Cholecystectomy clips are redemonstrated. PANCREAS: No significant abnormality is seen. SPLEEN: Splenomegaly is again seen measuring 16.1 cm long axis axial image 31. ADRENALS: No significant abnormality is seen. KIDNEYS: No renal calculi or hydronephrosis is evident bilaterally. No intraluminal calculus is seen in poorly distended bladder. Bladder is thus otherwise suboptimally evaluated. Wall thickening up to 14 mm superior anterior aspect remains present. Consider cystitis. Other etiologies not excluded. A f ew scattered pelvic phleboliths are seen. There is interval improvement in small area of ill-defined fluid and/or fat stranding superior to the anterior aspect of the bladder. BOWEL: No significant abnormality is seen. GENITAL ORGANS: No gross abnormality seen. LYMPH NODES: No greater than 1cm abdominal or pelvic lymph nodes are appreciated. OSSEOUS STRUCTURES: There are bilateral pars defects L4 level with grade 1 anterolisthesis of L4 on L 5. There is moderate disc space narrowing with vacuum disc phenomenon and endplate sclerosis and geod e formation at this level redemonstrated. OTHER: Mild to minimal calcified plaque in the distal abdominal aorta extending to branch vessels is seen. There is mild skin thickening and fat stranding in the anterior abdominal wall mid abdominal level pr esumed product of subcutaneous medicine injection or prior laparoscopic surgery. IMPRESSION: No renal stones or hydronephrosis is seen bilaterally. No suspicious new or acute finding seen to account for patient's symptoms.
== END ==
LOC: RADCTMAIN 14:51
PROVIDERS: ATTEND Family Medicine
DX: R10.84 Generalized abdominal pain (principal); R31.9 Hematuria, unspecified
CPT/HCPCS: 74176

== ENCOUNTER 2017-11-30 00:57 | Emergency (ER) | payer MEDICARE, OTHER ==
[2017-11-30 01:15] VITALS: RESP 18; TEMP 97.2
[2017-11-30 01:30] LABS: Appearance,Urine Clear (Clear); Bilirubin,Urine Negative (Negative); Blood,Urine Trace (Negative); Color,Urine Yellow; Glucose,Urine (UA) Negative (Negative); Ketones,Urine Negative (Negative); Leukocyte Esterase,Urine Negative (Negative); Mucus,Urine Few /hpf; Nitrite,Urine Negative (Negative); PH, Urine 5.5 (5.0-8.0); Protein,Urine Trace (Negative); RBC,Urine 1 /hpf (0-5); Specific Gravity,Urine 1.013 (1.001-1.035); WBC,Urine 1 /hpf (0-5)
--- NOTE | 2017-11-30 01:30 | ED ---
Abdominal Pain HPI - General Chief Complaint: Abdominal Pain Stated Complaint: Groin Pain Time Seen by Provider: 11/30/17 00:58 Source: patient, EMS, RN notes reviewed Mode of arrival: EMS Limitations: no limitations - History of Present Illness Initial Comments: This is a 47-year-old male who presents to the emergency department with chief complaint of abdominal pain. Patient is well-known to the emergency department has been seen multiple times over the past 2 months with the same complaint. He did follow up with a tableau architect and has a colonoscopy scheduled for next Saturday. He did receive an abdominal and pelvic computed tomography scan yesterday. This revealed no evidence to account for patient's abdominal pain. Patient states that approximately one hour prior to arrival he was eating catfish. He thinks that this may be contributing to his pain. He states that he took a half of a 600 mg ibuprofen. He then developed suprapubic pain that is sharp and stabbing in nature. Denies fevers or chills, nausea or vomiting, chest pain or shortness of breath, dysuria or hematuria. He does admit to both constipation and diarrhea. Patient also states that he feels like his penis is "purple." - Related Data Home Medications Medication Instructions Recorded Confirmed Lisinopril [Zestril] 10 mg PO QAM 06/06/14 11/29/17 Insulin Glargine [Lantus] 100 unit SQ HS 12/17/14 11/29/17 INSULIN LISPRO (HumaLOG) [HumaLOG] See Protocol SQ AC-TID 08/16/15 11/29/17 Divalproex Sodium [Depakote] 500 mg PO TID 01/10/17 11/29/17 traZODone HCL 50 mg PO HS 11/08/17 11/29/17 Cetirizine HCl [Zyrtec] 10 mg PO DAILY 11/17/17 11/29/17 diphenhydrAMINE HCL 25 mg PO TID PRN 11/17/17 11/29/17 [Diphenhydramine HCl] Hyoscyamine Sulfate [Levsin] 0.125 mg PO Q4H 11/29/17 11/29/17 Previous Rx's Medication Instructions Recorded Simethicone [Gas-X] 125 mg PO QID #10 capsule 11/27/17 Allergies Allergy/AdvReac Type Severity Reaction Status Date / Time bisacodyl Allergy dizziness Verified 11/30/17 01:16 [From Dulcolax (bisacodyl)] gabapentin Allergy seizures Verified 11/30/17 01:16 lactulose Allergy Rash/Hives Verified 11/30/17 01:16 Penicillins Allergy Unknown Verified 11/30/17 01:16 Childhood clozapine [From Clozaril] AdvReac Severe Aggression Verified 11/30/17 01:16 Review of Systems ROS Statement: Those systems with pertinent positive or pertinent negative responses have been documented in the HPI. ROS Other: All systems not noted in ROS Statement are negative. Past Medical History Past Medical History: Asthma, Diabetes Mellitus, GERD/Reflux, Hypertension, Osteoarthritis (OA), Seizure Disorder, Skin Disorder, Sleep Apnea/CPAP/BIPAP Additional Past Medical History / Comment(s): Abd pain,states "poss UTI-sees Dr Oriana Mcpherson on 11-29-17 for appt-and recent admission to [facility] for heart problems", LAST SEIZURE 28 YRS AGO. chronic back pain. DOES NOT USE CPAP. SPINAL STENOSIS, DDD IN BACK, SCOLIOSIS, IBS, psoriasis, frequent urination History of Any Multi-Drug Resistant Organisms: None Reported Past Surgical History: Cholecystectomy, Heart Catheterization, Tonsillectomy Additional Past Surgical History / Comment(s): PAIN PROCEDURES. Past Anesthesia/Blood Transfusion Reactions: Motion Sickness Past Psychological History: ADD/ADHD, Schizophrenia, Depression, Schizophrenia Smoking Status: Current some day smoker Past Alcohol Use History: None Reported Past Drug Use History: None Reported - Past Family History Father Family Medical History: Unable to Obtain Additional Family Medical History / Comment(s): Father left home when pt was 5 yrs old. Mother Family Medical History: No Reported History Additional Family Medical History / Comment(s): Mother at age 55yrs of [place]. General Exam - General Exam Comments Initial Comments: General: Awake and alert, well-developed; in no apparent distress. HEENT: Head atraumatic, normocephalic. Pupils are equal, round and reactive to light. Extraocular movements intact. Oropharynx moist without erythema or exudate. Neck: Supple. Normal ROM. Cardiovascular: Regular rate and rhythm. No murmurs, rubs or gallops. Chest symmetrical. Respiratory: Lungs clear to auscultation bilaterally. No wheezes, rales or rhonchi. Normal respiratory effort with no use of accessory muscles. Abdomen: Soft, non-distended. Mild tenderness on palpation of the suprapubic region. No rigidity, rebound or guarding. Normal bowel sounds in all 4 quadrants. Musculoskeletal: Normal ROM, no tenderness bilateral upper and lower extremities. Ambulating normally. Skin: [place], warm and dry without rashes or lesions. Neurological: Alert and oriented x3. CN II-XII grossly intact. Speech is fluent and answers are appropriate. No focal neuro deficits. Limitations: no limitations exam: Present: normal inspection. Absent: testicular tenderness, urethral discharge, scrotal swelling External exam: Present: normal external exam. Absent: erythema, swelling, lesions, ecchymosis Course Vital Signs 11/30/17 01:13 Temperature 97.2 F L Pulse Rate 65 Respiratory 18 Rate Blood Pressure 157/79 O2 Sat by Pulse 100 Oximetry Medical Decision Making - Medical Decision Making This is a 47 year-old male who presents to the emergency department with chief complaint of abdominal/groin pain. There is tenderness on palpation of suprapubic region. Patient has been seen multiple times in the emergency department with the same complaint. A computed tomography scan was obtained earlier today of abdomen and pelvis. There was evidence for some wall thickening of the bladder, however no significant evidence to account for patient's symptoms. Basic labs were obtained in the emergency department. CBC , CMP and UA were unremarkable. Patient does have a follow-up with gastroenterology and a colonoscopy scheduled for next Saturday. Patient's vital signs have been stable and he is in no acute distress. Patient will be discharged home at this time. He is in agreement and voices understanding. All questions were answered. - Lab Data Result diagrams: 11/30/17 01:30 11/30/17 01:30 Lab Results 11/30/17 11/30/17 11/30/17 Range/Units 01:11 01:30 01:30 WBC 6.4 (3.8-10.6) k/uL RBC 4.24 L (4.30-5.90) m/uL Hgb 12.5 L (13.0-17.5) gm/dL Hct 33.1 L (39.0-53.0) % MCV 78.0 L (80.0-100.0) fL MCH 29.3 (25.0-35.0) pg MCHC 37.6 H (31.0-37.0) g/dL RDW 13.7 (11.5-15.5) % Plt Count 150 (150-450) k/uL Neutrophils % 57 % Lymphocytes % 33 % Monocytes % 5 % Eosinophils % 3 % Basophils % 1 % Neutrophils # 3.7 (1.3-7.7) k/uL Lymphocytes # 2.1 (1.0-4.8) k/uL Monocytes # 0.3 (0-1.0) k/uL Eosinophils # 0.2 (0-0.7) k/uL Basophils # 0.1 (0-0.2) k/uL Hyperchromasia Marked Poikilocytosis Slight Sodium 138 (137-145) mmol/L Potassium 4.0 (3.5-5.1) mmol/L Chloride 104 (98-107) mmol/L Carbon Dioxide 25 (22-30) mmol/L Anion Gap 9 mmol/L BUN 15 (9-20) mg/dL Creatinine 0.70 (0.66-1.25) mg/dL Est GFR (CKD-EPI)AfAm >90 (>60 ml/min/1.73 sqM) Est GFR (CKD-EPI)NonAf >90 (>60 ml/min/1.73 sqM) Glucose 158 H (74-99) mg/dL Calcium 9.3 (8.4-10.2) mg/dL Total Bilirubin 1.4 H (0.2-1.3) mg/dL AST 29 (17-59) U/L ALT 39 (21-72) U/L Alkaline Phosphatase 70 (38-126) U/L Total Protein 6.0 L (6.3-8.2) g/dL Albumin 3.7 (3.5-5.0) g/dL Amylase 37 (30-110) U/L Lipase 137 (23-300) U/L Urine Color Yellow Urine Appearance Clear (Clear) Urine pH 5.5 (5.0-8.0) Ur Specific [place] 1.013 (1.001-1.035) Urine Protein Trace H (Negative) Urine Glucose (UA) Negative (Negative) Urine Ketones Negative (Negative) Urine Blood Trace H (Negative) Urine Nitrite Negative (Negative) Urine Bilirubin Negative (Negative) Urine Urobilinogen 2.0 (<2.0) mg/dL Ur Leukocyte Esterase Negative (Negative) Urine RBC 1 (0-5) /hpf Urine WBC 1 (0-5) /hpf Urine Mucus Few H (None) /hpf Disposition Clinical Impression: Abdominal pain Disposition: HOME SELF-CARE Condition: Good Instructions: Abdominal Pain (ED) Additional Instructions: Please follow up with primary care provider within 1-2 days. Return to emergency department if symptoms should worsen or any concerns arise. Referrals: Brandon Mcpherson MD [Primary Care Provider] - 1-2 days Time of Disposition: 02:02
[2017-11-30 01:33] LABS: Basophils # (A) 0.1 k/uL (0-0.2); Basophils % (A) 1 %; Eosinophils # (A) 0.2 k/uL (0-0.7); Eosinophils % (A) 3 %; HCT 33.1 % (39.0-53.0); HGB 12.5 gm/dL (13.0-17.5); Hyperchromasia Marked; Lymphocytes # (A) 2.1 k/uL (1.0-4.8); Lymphocytes % (A) 33 %; MCH 29.3 pg (25.0-35.0); MCHC 37.6 g/dL (31.0-37.0); Mean Platelet Volume 7.5; Monocytes # (A) 0.3 k/uL (0-1.0); Monocytes % (A) 5 %; Neutrophils # (A) 3.7 k/uL (1.3-7.7); Neutrophils % (A) 57 %; Platelet Count 150 k/uL (150-450); Poikilocytosis Slight; RBC 4.24 m/uL (4.30-5.90); RDW 13.7 % (11.5-15.5); WBC 6.4 k/uL (3.8-10.6)
[2017-11-30 01:46] LABS: ALT 39 U/L (21-72); AST 29 U/L (17-59); Albumin 3.7 g/dL (3.5-5.0); Alkaline Phosphatase 70 U/L (38-126); Amylase 37 U/L (30-110); Anion Gap 9 mmol/L; Blood Urea Nitrogen 15 mg/dL (9-20); Calcium 9.3 mg/dL (8.4-10.2); Carbon Dioxide 25 mmol/L (22-30); Chloride 104 mmol/L (98-107); Glucose 158 mg/dL (74-99); Lipase 137 U/L (23-300); Sodium 138 mmol/L (137-145); Total Bilirubin 1.4 mg/dL (0.2-1.3)
[2017-11-30 02:18] VITALS: BP 126/74; PULSE 62
== END 2017-11-30 02:17 | disposition home or self-care (01) ==
LOC: EC 00:57
DX: R10.30 Lower abdominal pain, unspecified (principal); E11.9 Type 2 diabetes mellitus without complications; I10 Essential (primary) hypertension; G40.909 Epilepsy, unspecified, not intractable, without status epilepticus; F32.9 Major depressive disorder, single episode, unspecified; F90.9 Attention-deficit hyperactivity disorder, unspecified type; F17.200 Nicotine dependence, unspecified, uncomplicated; G47.30 Sleep apnea, unspecified; Z99.89 Dependence on other enabling machines and devices; Z90.49 Acquired absence of other specified parts of digestive tract; Z95.9 Presence of cardiac and vascular implant and graft, unspecified; Z79.4 Long term (current) use of insulin; Z79.899 Other long term (current) drug therapy; Z88.8 Allergy status to other drugs, medicaments and biological substances; Z91.011 Allergy to milk products; Z88.0 Allergy status to penicillin
CPT/HCPCS: 36415; 80053; 81001; 82150; 83690; 85025; 87086; 99285

== ENCOUNTER 2017-11-30 10:17 | Emergency (ER) | payer MEDICARE, OTHER ==
[2017-11-30] MEDS ORDERED: SODIUM CHLORIDE 0.9% 1,000 ML IV STA (10:21)
[2017-11-30] MEDS ORDERED: MORPHINE SULFATE/PF 10MG/10ML VL IVP STA (10:21)
[2017-11-30] MEDS ORDERED: NITROGLYCERIN SL TABS 0.4 MG TAB SUBLINGUAL STA (10:21)
[2017-11-30] MEDS ORDERED: ASPIRIN 81 MG PO STA (10:21)
[2017-11-30 10:36] VITALS: RESP 18
[2017-11-30] MEDS ORDERED: LORazepam 1 MG TAB PO STA (10:57)
--- NOTE | 2017-11-30 11:42 | XR ---
EXAMINATION TYPE: XR chest 2V DATE OF EXAM: 11/30/2017 HISTORY: Chest Pain. REFERENCE: Previous study dated 11/16/2017. FINDINGS: The lungs are clear. Pleural space are clear. The heart is not enlarged. IMPRESSION: NORMAL CHEST.
[2017-11-30 12:18] LABS: Basophils # (A) 0.1 k/uL (0-0.2); Basophils % (A) 1 %; Eosinophils # (A) 0.1 k/uL (0-0.7); Eosinophils % (A) 2 %; HCT 33.4 % (39.0-53.0); HGB 12.4 gm/dL (13.0-17.5); Hyperchromasia Moderate; Lymphocytes # (A) 1.6 k/uL (1.0-4.8); Lymphocytes % (A) 28 %; MCH 28.9 pg (25.0-35.0); MCV 78.2 fL (80.0-100.0); Mean Platelet Volume 8.3; Monocytes # (A) 0.3 k/uL (0-1.0); Monocytes % (A) 5 %; Neutrophils # (A) 3.6 k/uL (1.3-7.7); Neutrophils % (A) 64 %; Platelet Count 138 k/uL (150-450); Poikilocytosis Slight; RBC 4.27 m/uL (4.30-5.90); RDW 13.6 % (11.5-15.5); WBC 5.6 k/uL (3.8-10.6)
[2017-11-30 12:32] LABS: ALT 44 U/L (21-72); AST 27 U/L (17-59); Albumin 3.8 g/dL (3.5-5.0); Alkaline Phosphatase 70 U/L (38-126); Anion Gap 10 mmol/L; Blood Urea Nitrogen 12 mg/dL (9-20); Calcium 9.3 mg/dL (8.4-10.2); Carbon Dioxide 26 mmol/L (22-30); Chloride 102 mmol/L (98-107); Glucose 141 mg/dL (74-99); Magnesium 1.7 mg/dL (1.6-2.3); Sodium 138 mmol/L (137-145); Total Bilirubin 1.7 mg/dL (0.2-1.3)
[2017-11-30 12:35] LABS: D-Dimer <0.17 mg/L FEU (<0.60); INR 1.1 (<1.2); Partial Thromboplastin Time 25.5 sec (22.0-30.0)
[2017-11-30 12:41] LABS: Creatine Kinase 149 U/L (55-170)
--- NOTE | 2017-11-30 12:50 | ED ---
Arrhythmia/Palpitations HPI - General Chief Complaint: Arrhythmia/Palpitations Stated Complaint: Chest Pain Time Seen by Provider: 11/30/17 10:19 Source: patient Mode of arrival: EMS Limitations: no limitations - History of Present Illness Initial Comments: 37 years old male comes in with a chest pain oand palpitation for last 24 hours he has been evaluated in the ER for the same several times before and he said chest pain gets worse with a deep breath she has been coughing up phlegm as well no nausea no vomiting no cold sweats. Denies any headaches no neck stiffness has a chest pain no abdominal pain no frequency urgency dysuria no symptoms of TIA or CVA - Related Data Home Medications Medication Instructions Recorded Confirmed Lisinopril [Zestril] 10 mg PO QAM 06/06/14 11/29/17 Insulin Glargine [Lantus] 100 unit SQ HS 12/17/14 11/29/17 INSULIN LISPRO (HumaLOG) [HumaLOG] See Protocol SQ AC-TID 08/16/15 11/29/17 Divalproex Sodium [Depakote] 500 mg PO TID 01/10/17 11/29/17 traZODone HCL 50 mg PO HS 11/08/17 11/29/17 Cetirizine HCl [Zyrtec] 10 mg PO DAILY 11/17/17 11/29/17 diphenhydrAMINE HCL 25 mg PO TID PRN 11/17/17 11/29/17 [Diphenhydramine HCl] Hyoscyamine Sulfate [Levsin] 0.125 mg PO Q4H 11/29/17 11/29/17 Omeprazole 20 mg PO DAILY 11/30/17 11/30/17 Previous Rx's Medication Instructions Recorded Simethicone [Gas-X] 125 mg PO QID #10 capsule 11/27/17 Allergies Allergy/AdvReac Type Severity Reaction Status Date / Time bisacodyl Allergy dizziness Verified 11/30/17 12:47 [From Dulcolax (bisacodyl)] gabapentin Allergy seizures Verified 11/30/17 12:47 lactulose Allergy Rash/Hives Verified 11/30/17 12:47 Penicillins Allergy Unknown Verified 11/30/17 12:47 Childhood clozapine [From Clozaril] AdvReac Severe Aggression Verified 11/30/17 12:47 Review of Systems ROS Statement: Those systems with pertinent positive or pertinent negative responses have been documented in the HPI. ROS Other: All systems not noted in ROS Statement are negative. Past Medical History Past Medical History: Asthma, Diabetes Mellitus, GERD/Reflux, Hypertension, Osteoarthritis (OA), Seizure Disorder, Skin Disorder, Sleep Apnea/CPAP/BIPAP Additional Past Medical History / Comment(s): Abd pain,states "poss UTI-sees Dr Oriana Mcpherson on 11-29-17 for appt-and recent admission to [facility] for heart problems", LAST SEIZURE 28 YRS AGO. chronic back pain. DOES NOT USE CPAP. SPINAL STENOSIS, DDD IN BACK, SCOLIOSIS, IBS, psoriasis, frequent urination History of Any Multi-Drug Resistant Organisms: None Reported Past Surgical History: Cholecystectomy, Heart Catheterization, Tonsillectomy Additional Past Surgical History / Comment(s): PAIN PROCEDURES. Past Anesthesia/Blood Transfusion Reactions: Motion Sickness Past Psychological History: ADD/ADHD, Schizophrenia, Depression, Schizophrenia Smoking Status: Current some day smoker Past Alcohol Use History: None Reported Past Drug Use History: None Reported - Past Family History Father Family Medical History: Unable to Obtain Additional Family Medical History / Comment(s): Father left home when pt was 5 yrs old. Mother Family Medical History: No Reported History Additional Family Medical History / Comment(s): Mother at age 55yrs of [place]. General Exam Limitations: no limitations Course Vital Signs 11/30/17 11/30/17 10:31 12:50 Temperature 97.8 F Pulse Rate 78 69 Respiratory 18 18 Rate Blood Pressure 121/78 114/56 O2 Sat by Pulse 95 99 Oximetry Patient is reassessed and he feels better CBC, comprehensive metabolic panel,, EKG, troponin, d-dimer, chest x-ray looks unremarkable will discharge him home and he'll follow up with the cardiology as outpatient EKG Findings - EKG Comments: EKG Findings:: EKG is no sinus rhythm ventricular rate is 68 OH interval is 174 QRS duration is 118 QT/QTc is 428/455 review of this EKG does not reveal any ST elevation noticed some T-wave inversion and now lead 3 and numb feet 3 Medical Decision Making - Lab Data Result diagrams: 11/30/17 12:03 11/30/17 12:03 Lab Results 11/30/17 11/30/17 11/30/17 Range/Units 12:03 12:03 12:03 WBC 5.6 (3.8-10.6) k/uL RBC 4.27 L (4.30-5.90) m/uL Hgb 12.4 L (13.0-17.5) gm/dL Hct 33.4 L (39.0-53.0) % MCV 78.2 L (80.0-100.0) fL MCH 28.9 (25.0-35.0) pg MCHC 37.0 (31.0-37.0) g/dL RDW 13.6 (11.5-15.5) % Plt Count 138 L (150-450) k/uL Neutrophils % 64 % Lymphocytes % 28 % Monocytes % 5 % Eosinophils % 2 % Basophils % 1 % Neutrophils # 3.6 (1.3-7.7) k/uL Lymphocytes # 1.6 (1.0-4.8) k/uL Monocytes # 0.3 (0-1.0) k/uL Eosinophils # 0.1 (0-0.7) k/uL Basophils # 0.1 (0-0.2) k/uL Hyperchromasia Moderate Poikilocytosis Slight PT (9.0-12.0) sec INR (<1.2) APTT (22.0-30.0) sec D-Dimer (<0.60) mg/L FEU Sodium 138 (137-145) mmol/L Potassium 4.0 (3.5-5.1) mmol/L Chloride 102 (98-107) mmol/L Carbon Dioxide 26 (22-30) mmol/L Anion Gap 10 mmol/L BUN 12 (9-20) mg/dL Creatinine 0.70 (0.66-1.25) mg/dL Est GFR (CKD-EPI)AfAm >90 (>60 ml/min/1.73 sqM) Est GFR (CKD-EPI)NonAf >90 (>60 ml/min/1.73 sqM) Glucose 141 H (74-99) mg/dL Calcium 9.3 (8.4-10.2) mg/dL Magnesium 1.7 (1.6-2.3) mg/dL Total Bilirubin 1.7 H (0.2-1.3) mg/dL AST 27 (17-59) U/L ALT 44 (21-72) U/L Alkaline Phosphatase 70 (38-126) U/L Total Creatine Kinase 149 (55-170) U/L CK-MB (CK-2) 1.6 (0.0-2.4) ng/mL CK-MB (CK-2) Rel Index 1.1 Troponin I <0.012 (0.000-0.034) ng/mL Total Protein 6.0 L (6.3-8.2) g/dL Albumin 3.8 (3.5-5.0) g/dL 11/30/17 Range/Units 12:03 WBC (3.8-10.6) k/uL RBC (4.30-5.90) m/uL Hgb (13.0-17.5) gm/dL Hct (39.0-53.0) % MCV (80.0-100.0) fL MCH (25.0-35.0) pg MCHC (31.0-37.0) g/dL RDW (11.5-15.5) % Plt Count (150-450) k/uL Neutrophils % % Lymphocytes % % Monocytes % % Eosinophils % % Basophils % % Neutrophils # (1.3-7.7) k/uL Lymphocytes # (1.0-4.8) k/uL Monocytes # (0-1.0) k/uL Eosinophils # (0-0.7) k/uL Basophils # (0-0.2) k/uL Hyperchromasia Poikilocytosis PT 11.0 (9.0-12.0) sec INR 1.1 (<1.2) APTT 25.5 (22.0-30.0) sec D-Dimer <0.17 (<0.60) mg/L FEU Sodium (137-145) mmol/L Potassium (3.5-5.1) mmol/L Chloride (98-107) mmol/L Carbon Dioxide (22-30) mmol/L Anion Gap mmol/L BUN (9-20) mg/dL Creatinine (0.66-1.25) mg/dL Est GFR (CKD-EPI)AfAm (>60 ml/min/1.73 sqM) Est GFR (CKD-EPI)NonAf (>60 ml/min/1.73 sqM) Glucose (74-99) mg/dL Calcium (8.4-10.2) mg/dL Magnesium (1.6-2.3) mg/dL Total Bilirubin (0.2-1.3) mg/dL AST (17-59) U/L ALT (21-72) U/L Alkaline Phosphatase (38-126) U/L Total Creatine Kinase (55-170) U/L CK-MB (CK-2) (0.0-2.4) ng/mL CK-MB (CK-2) Rel Index Troponin I (0.000-0.034) ng/mL Total Protein (6.3-8.2) g/dL Albumin (3.5-5.0) g/dL Disposition Clinical Impression: Chest pain, Palpitation Disposition: HOME SELF-CARE Condition: Good Instructions: Palpitations (ED) Referrals: Brandon Mcpherson MD [Primary Care Provider] - 1-2 days Ty Montanez MD [STAFF PHYSICIAN] - 1-2 days
[2017-11-30 12:53] LABS: Creatine Kinase MB 1.6 ng/mL (0.0-2.4); Troponin I <0.012 ng/mL (0.000-0.034)
[2017-11-30 13:18] VITALS: BP 125/74; PULSE 58; TEMP 97.9
== END 2017-11-30 13:17 | disposition home or self-care (01) ==
LOC: EC 10:17
DX: R07.1 Chest pain on breathing (principal); R00.2 Palpitations; J45.909 Unspecified asthma, uncomplicated; R05 Cough; E11.9 Type 2 diabetes mellitus without complications; I10 Essential (primary) hypertension; K21.9 Gastro-esophageal reflux disease without esophagitis; G40.909 Epilepsy, unspecified, not intractable, without status epilepticus; F90.9 Attention-deficit hyperactivity disorder, unspecified type; F32.9 Major depressive disorder, single episode, unspecified; F17.200 Nicotine dependence, unspecified, uncomplicated; G47.30 Sleep apnea, unspecified; Z99.89 Dependence on other enabling machines and devices; Z87.19 Personal history of other diseases of the digestive system; Z95.818 Presence of other cardiac implants and grafts; Z79.4 Long term (current) use of insulin; Z79.899 Other long term (current) drug therapy; Z88.8 Allergy status to other drugs, medicaments and biological substances; Z91.011 Allergy to milk products; Z88.0 Allergy status to penicillin; Z53.20 Procedure and treatment not carried out because of patient's decision for unspecified reasons
CPT/HCPCS: 36415; 71046; 80053; 81001; 82150; 82550; 82553; 83690; 83735; 84484; 85025; 85379; 85610; 85730; 87086; 93005; 99285

== ENCOUNTER 2017-12-02 04:08 | Emergency (ER) | payer MEDICARE, OTHER ==
[2017-12-02 04:14] VITALS: TEMP 97
--- NOTE | 2017-12-02 06:51 | ED ---
General Adult HPI - General Chief complaint: Recheck/Abnormal Lab/Rx Stated complaint: ITCHY,NUMBNESS,RASH Time Seen by Provider: 12/02/17 04:56 Source: patient Mode of arrival: ambulatory Limitations: no limitations - History of Present Illness Initial comments: This patient's 47-year-old man who presents with 2 complaints today. The first complaint is of a rash to the anterior aspect of his right thigh just superior to his knee. He has noticed that there for the past 1-2 days. He is not having any pain or itching related to it. The second complaint is a feeling that he is not urinating enough. He states that he has had a little bit of discomfort with urination and feels like he needs to urinate more but has not been able to the patient denies fever or chills. Denies hematuria or urethral drainage. No testicular pain or swelling. -: days(s) Quality: dull Consistency: constant Improves with: none Worsens with: none Associated Symptoms: denies other symptoms - Related Data Home Medications Medication Instructions Recorded Confirmed Lisinopril [Zestril] 10 mg PO QAM 06/06/14 11/30/17 Insulin Glargine [Lantus] 100 unit SQ HS 12/17/14 11/30/17 INSULIN LISPRO (HumaLOG) [HumaLOG] See Protocol SQ AC-TID 08/16/15 11/30/17 Divalproex Sodium [Depakote] 500 mg PO TID 01/10/17 11/30/17 traZODone HCL 50 mg PO HS 11/08/17 11/30/17 Cetirizine HCl [Zyrtec] 10 mg PO DAILY 11/17/17 11/30/17 diphenhydrAMINE HCL 25 mg PO TID PRN 11/17/17 11/30/17 [Diphenhydramine HCl] Hyoscyamine Sulfate [Levsin] 0.125 mg PO Q4H 11/29/17 11/30/17 Omeprazole 20 mg PO DAILY 11/30/17 11/30/17 Previous Rx's Medication Instructions Recorded Simethicone [Gas-X] 125 mg PO QID #10 capsule 11/27/17 Allergies Allergy/AdvReac Type Severity Reaction Status Date / Time bisacodyl Allergy dizziness Verified 12/02/17 04:14 [From Dulcolax (bisacodyl)] gabapentin Allergy seizures Verified 12/02/17 04:14 lactulose Allergy Rash/Hives Verified 12/02/17 04:14 Penicillins Allergy Unknown Verified 12/02/17 04:14 Childhood clozapine [From Clozaril] AdvReac Severe Aggression Verified 12/02/17 04:14 Review of Systems ROS Statement: Those systems with pertinent positive or pertinent negative responses have been documented in the HPI. ROS Other: All systems not noted in ROS Statement are negative. Constitutional: Denies: fever, chills Respiratory: Denies: cough, dyspnea Cardiovascular: Denies: chest pain, palpitations, edema Gastrointestinal: Denies: abdominal pain, nausea, vomiting Genitourinary: Reports: dysuria, frequency. Denies: urgency, hematuria, discharge, testicular pain, testicular mass Musculoskeletal: Denies: back pain Skin: Denies: rash Past Medical History Past Medical History: Asthma, Diabetes Mellitus, GERD/Reflux, Hypertension, Osteoarthritis (OA), Seizure Disorder, Skin Disorder, Sleep Apnea/CPAP/BIPAP Additional Past Medical History / Comment(s): Abd pain,states "poss UTI-sees Dr Oriana Mcpherson on 11-29-17 for appt-and recent admission to [facility] for heart problems", LAST SEIZURE 28 YRS AGO. chronic back pain. DOES NOT USE CPAP. SPINAL STENOSIS, DDD IN BACK, SCOLIOSIS, IBS, psoriasis, frequent urination History of Any Multi-Drug Resistant Organisms: None Reported Past Surgical History: Cholecystectomy, Heart Catheterization, Tonsillectomy Additional Past Surgical History / Comment(s): PAIN PROCEDURES. Past Anesthesia/Blood Transfusion Reactions: Motion Sickness Past Psychological History: ADD/ADHD, Schizophrenia, Depression, Schizophrenia Smoking Status: Current some day smoker Past Alcohol Use History: None Reported Past Drug Use History: Marijuana - Past Family History Father Family Medical History: Unable to Obtain Additional Family Medical History / Comment(s): Father left home when pt was 5 yrs old. Mother Family Medical History: No Reported History Additional Family Medical History / Comment(s): Mother at age 55yrs of [place]. General Exam Limitations: no limitations General appearance: alert, in no apparent distress, obese Head exam: Present: atraumatic, normocephalic Eye exam: Present: normal appearance Respiratory exam: Present: normal lung sounds bilaterally. Absent: respiratory distress, wheezes, rales, rhonchi, stridor Cardiovascular Exam: Present: regular rate, normal rhythm, normal heart sounds. Absent: systolic murmur, diastolic murmur, rubs, gallop GI/Abdominal exam: Present: soft. Absent: distended, tenderness, guarding Extremities exam: Present: normal inspection, normal capillary refill. Absent: pedal edema Back exam: Absent: CVA tenderness (R), CVA tenderness (L) Neurological exam: Present: alert Skin exam: Present: warm, dry, intact, normal color, abrasion. Absent: rash, other Course Vital Signs 12/02/17 04:09 Temperature 97.0 F L Pulse Rate 74 Respiratory 18 Rate Blood Pressure 140/90 O2 Sat by Pulse 100 Oximetry Medical Decision Making - Medical Decision Making Patient's 47-year-old man related to his first complaint, the patient does have small area of ecchymosis to the anterior aspect of the knee. He didn't recall falling and this does appear to be related to small contusion/abrasion of the knee. Related to his urinary complaint, we did perform a bladder scan and there was not a significant amount of urine. Urinalysis is pending at time of sign out. - Lab Data Lab Results 12/02/17 Range/Units 06:33 Urine Color Yellow Urine Appearance Clear (Clear) Urine pH 5.0 (5.0-8.0) Ur Specific [place] 1.016 (1.001-1.035) Urine Protein Negative (Negative) Urine Glucose (UA) Negative (Negative) Urine Ketones Negative (Negative) Urine Blood Small H (Negative) Urine Nitrite Negative (Negative) Urine Bilirubin Negative (Negative) Urine Urobilinogen <2.0 (<2.0) mg/dL Ur Leukocyte Esterase Negative (Negative) Urine WBC 1 (0-5) /hpf Hyaline Casts 1 (0-2) /lpf Urine Mucus Rare H (None) /hpf Disposition Clinical Impression: Dysuria Disposition: HOME SELF-CARE Condition: Good Instructions: Dysuria (ED) Referrals: Brandon Mcpherson MD [Primary Care Provider] - 1-2 days
[2017-12-02 06:55] LABS: Appearance,Urine Clear (Clear); Bilirubin,Urine Negative (Negative); Blood,Urine Small (Negative); Color,Urine Yellow; Glucose,Urine (UA) Negative (Negative); Hyaline Casts,Urine 1 /lpf (0-2); Ketones,Urine Negative (Negative); Leukocyte Esterase,Urine Negative (Negative); Mucus,Urine Rare /hpf; Nitrite,Urine Negative (Negative); Protein,Urine Negative (Negative); Specific Gravity,Urine 1.016 (1.001-1.035); Urobilinogen,Urine <2.0 mg/dL (<2.0); WBC,Urine 1 /hpf (0-5)
[2017-12-02] MEDS ORDERED: PHENAZOPYRIDINE 100 MG TAB PO STA (07:00)
[2017-12-02 07:12] VITALS: BP 134/74; PULSE 78; RESP 16
== END 2017-12-02 07:14 | disposition home or self-care (01) ==
LOC: EC 04:08
DX: R30.0 Dysuria (principal); R21 Rash and other nonspecific skin eruption; E11.9 Type 2 diabetes mellitus without complications; K21.9 Gastro-esophageal reflux disease without esophagitis; I10 Essential (primary) hypertension; G40.909 Epilepsy, unspecified, not intractable, without status epilepticus; G47.30 Sleep apnea, unspecified; Z99.89 Dependence on other enabling machines and devices; K58.9 Irritable bowel syndrome, unspecified; F90.9 Attention-deficit hyperactivity disorder, unspecified type; F32.9 Major depressive disorder, single episode, unspecified; F20.9 Schizophrenia, unspecified; F17.200 Nicotine dependence, unspecified, uncomplicated; Z79.4 Long term (current) use of insulin; Z79.899 Other long term (current) drug therapy; Z88.0 Allergy status to penicillin; Z91.011 Allergy to milk products; Z88.8 Allergy status to other drugs, medicaments and biological substances
CPT/HCPCS: 51798; 81001; 87086; 99284

== ENCOUNTER → 2017-12-03 | Day surgery (SDC) | payer MEDICARE, OTHER ==
[2017-11-29 08:53] VITALS: BMI 34.4
[~2017-12-03] MED LIST: LACTATED RINGERS 1,000 ML IV ONE; LACTATED RINGERS 1,000 ML IV SCH; LIDOCAINE 1% INJ 10MG/ML (20 ML MDV) ONE; PROPOFOL 10 MG/ML 20 ML VIAL IV ONE
[2017-12-03 08:12] LABS: Glucose,Whole Blood 140 mg/dL (75-99)
[2017-12-03 08:14] VITALS: TEMP 98.6
--- NOTE | 2017-12-03 09:25 | P.PCN ---
Date of Procedure: 12/03/17 Procedure(s) Performed: Procedure: Colonoscopy and polypectomy. Preoperative diagnosis: Change in bowel habits and history of polyps. Postoperative diagnosis: Sigmoid polyp snared but no large polyps or cancer. Preparation: HalfLytely prep. Sedation: Was provided by anesthesia. Brief clinical history: The patient is a 47-year-old male was been having issues with constipation and feeling of incomplete emptying as well as abdominal discomfort and bloating that made him go to the emergency room multiple times in the recent past. There is history of polyps and his last exam was more than 5 years ago. Procedure: With the patient on his left lateral decubitus position and after informed consent and adequate sedation the perianal area was inspected and it did not show any fissures or fistulas. There were no masses felt on digital rectal examination. The Olympus CFQ 160L video colonoscope was then inserted in the rectum in the usual fashion and advanced to the cecum. There was a sigmoid polyp, around 40 cm from the anal verge, measuring around 1-1/2 cm that was snared and retrieved by suctioning it to the tip of the endoscope and withdrawing the endoscope and restarting the exam. The mucosa appeared healthy no other polyps or tumors were seen or any obvious diverticular disease or other pathology. I retroflexed the endoscope in the rectum before the endoscope was withdrawn. The patient tolerated the procedure well. Plan: The patient was reassured. Discussed dietary measures. He will follow up with you as planned and I recommended repeat exam in 5 years.
[2017-12-03 09:43] VITALS: BP 159/94; PULSE 60; RESP 18
== END | disposition home or self-care (01) ==
LOC: ORWHC2ENDO 07:36
DX: D12.5 Benign neoplasm of sigmoid colon (principal); I10 Essential (primary) hypertension; J45.909 Unspecified asthma, uncomplicated; G47.33 Obstructive sleep apnea (adult) (pediatric); E11.9 Type 2 diabetes mellitus without complications; M41.9 Scoliosis, unspecified; M19.90 Unspecified osteoarthritis, unspecified site; K21.9 Gastro-esophageal reflux disease without esophagitis; R56.9 Unspecified convulsions; Z86.010 Personal history of colon polyps; Z88.0 Allergy status to penicillin; Z88.8 Allergy status to other drugs, medicaments and biological substances; Z79.4 Long term (current) use of insulin; Z79.899 Other long term (current) drug therapy
CPT/HCPCS: 45385; 88305; J2001; J2704

== ENCOUNTER 2017-12-04 02:31 | Inpatient (IN) | payer MEDICARE, OTHER ==
[2017-12-04] MEDS ORDERED: SODIUM CHLORIDE 0.9% 1,000 ML IV STA (02:52)
--- NOTE | 2017-12-04 03:04 | ED ---
GI Bleed HPI - General Chief complaint: GI Bleed Stated complaint: Rectal bleeding Time Seen by Provider: 12/04/17 02:42 Source: patient, RN notes reviewed, old records reviewed Mode of arrival: ambulatory Limitations: no limitations - History of Present Illness Initial comments: This is a 47-year-old male who presents to the emergency department with chief complaint of GI bleed. Patient states that he underwent a colonoscopy earlier today. He states that for the past hour to hour and a half he has been having bright red blood coming from his rectum. He states that he is having lower abdominal cramping. Denies nausea or vomiting, diarrhea or constipation, fevers or chills. He denies any weakness, dizziness or headache. Denies rectal pain. Denies coughing or vomiting of blood. - Related Data Home Medications Medication Instructions Recorded Confirmed Lisinopril [Zestril] 10 mg PO QAM 06/06/14 12/03/17 Insulin Glargine [Lantus] 100 unit SQ HS 12/17/14 12/03/17 INSULIN LISPRO (HumaLOG) [HumaLOG] See Protocol SQ AC-TID 08/16/15 12/03/17 Divalproex Sodium [Depakote] 500 mg PO TID 01/10/17 12/03/17 traZODone HCL 50 mg PO HS 11/08/17 12/03/17 Cetirizine HCl [Zyrtec] 10 mg PO DAILY 11/17/17 12/03/17 diphenhydrAMINE HCL 25 mg PO TID PRN 11/17/17 12/03/17 [Diphenhydramine HCl] Hyoscyamine Sulfate [Levsin] 0.125 mg PO Q4H 11/29/17 12/03/17 Omeprazole 20 mg PO DAILY 11/30/17 12/03/17 Previous Rx's Medication Instructions Recorded Simethicone [Gas-X] 125 mg PO QID #10 capsule 11/27/17 Allergies Allergy/AdvReac Type Severity Reaction Status Date / Time bisacodyl Allergy dizziness Verified 12/03/17 11:30 [From Dulcolax (bisacodyl)] gabapentin Allergy seizures Verified 12/03/17 11:30 lactulose Allergy Rash/Hives Verified 12/03/17 11:30 Penicillins Allergy Unknown Verified 12/03/17 11:30 Childhood clozapine [From Clozaril] AdvReac Severe Aggression Verified 12/03/17 11:30 Review of Systems ROS Statement: Those systems with pertinent positive or pertinent negative responses have been documented in the HPI. ROS Other: All systems not noted in ROS Statement are negative. Past Medical History Past Medical History: Asthma, Diabetes Mellitus, GERD/Reflux, Hypertension, Osteoarthritis (OA), Seizure Disorder, Skin Disorder, Sleep Apnea/CPAP/BIPAP Additional Past Medical History / Comment(s): Abd pain,states "poss UTI-sees Dr Oriana Mcpherson on 11-29-17 for appt-and recent admission to [facility] for heart problems", LAST SEIZURE 28 YRS AGO. chronic back pain. DOES NOT USE CPAP. SPINAL STENOSIS, DDD IN BACK, SCOLIOSIS, IBS, psoriasis, frequent urination, chronic diarrhea/ constipation issues History of Any Multi-Drug Resistant Organisms: None Reported Past Surgical History: Cholecystectomy, Heart Catheterization, Tonsillectomy Additional Past Surgical History / Comment(s): PAIN PROCEDURES. Past Anesthesia/Blood Transfusion Reactions: Motion Sickness Past Psychological History: ADD/ADHD, Schizophrenia, Depression, Schizophrenia Smoking Status: Current some day smoker Past Alcohol Use History: None Reported Past Drug Use History: Marijuana - Past Family History Father Family Medical History: Unable to Obtain Additional Family Medical History / Comment(s): Father left home when pt was 5 yrs old. Mother Family Medical History: No Reported History Additional Family Medical History / Comment(s): Mother at age 55yrs of [place]. General Exam - General Exam Comments Initial Comments: General: Awake and alert, well-developed; in no apparent distress. HEENT: Head atraumatic, normocephalic. Pupils are equal, round and reactive to light. Extraocular movements intact. Oropharynx moist without erythema or exudate. Neck: Supple. Normal ROM. Cardiovascular: Regular rate and rhythm. No murmurs, rubs or gallops. Chest symmetrical. Respiratory: Lungs clear to auscultation bilaterally. No wheezes, rales or rhonchi. Normal respiratory effort with no use of accessory muscles. Abdomen: Soft, non-distended. Tenderness of suprapubic and mid lower abdomen. No rigidity, rebound or guarding. Normal bowel sounds in all 4 quadrants. Musculoskeletal: Normal ROM, no tenderness bilateral upper and lower extremities. Ambulating normally. Skin: [place], warm and dry without rashes or lesions. Neurological: Alert and oriented x3. CN II-XII grossly intact. Speech is fluent and answers are appropriate. No focal neuro deficits. Psychiatric: Normal mood and affect. No overt signs of depression or anxiety noted. Limitations: no limitations Rectal exam: Present: normal inspection, bloody stool (bright red blood per rectum. visualized moderate amount in comode. active bleeding per rectum. ) Course Vital Signs 12/04/17 12/04/17 02:36 03:01 Temperature 98.8 F Pulse Rate 86 76 Respiratory 16 19 Rate Blood Pressure 126/69 130/76 O2 Sat by Pulse 98 97 Oximetry Medical Decision Making - Medical Decision Making This is a 47-year-old male who presents to the emergency department with chief complaint of GI bleed. Patient had a colonoscopy performed by Dr. Evangelista yesterday and patient has been experiencing bright red blood per rectum. I myself did visualize bright red blood per rectum while patient was in the emergency department. CBC revealed a hemoglobin of 12.7 with a hematocrit of 33.5. Vital signs are stable and patient is in no acute distress. No weakness , dizziness, headaches or syncopal episodes. He will be admitted for observation on telemetry to Dr. Mckeon with consult to Dr. Evangelista. Patient was made aware of findings and plan and he is in agreement for admission. All questions answered. - Lab Data Result diagrams: 12/04/17 02:58 Lab Results 12/04/17 12/04/17 Range/Units 02:58 02:58 PT 10.7 (9.0-12.0) sec INR 1.1 (<1.2) APTT 24.4 (22.0-30.0) sec Sodium 141 (137-145) mmol/L Potassium 3.8 (3.5-5.1) mmol/L Chloride 105 (98-107) mmol/L Carbon Dioxide 22 (22-30) mmol/L Anion Gap 14 mmol/L BUN 9 (9-20) mg/dL Creatinine 0.80 (0.66-1.25) mg/dL Est GFR (CKD-EPI)AfAm >90 (>60 ml/min/1.73 sqM) Est GFR (CKD-EPI)NonAf >90 (>60 ml/min/1.73 sqM) Glucose 164 H (74-99) mg/dL Calcium 9.7 (8.4-10.2) mg/dL Total Bilirubin 2.4 H (0.2-1.3) mg/dL AST 23 (17-59) U/L ALT 37 (21-72) U/L Alkaline Phosphatase 84 (38-126) U/L Total Protein 6.1 L (6.3-8.2) g/dL Albumin 3.8 (3.5-5.0) g/dL Disposition Clinical Impression: Hematochezia Disposition: ADMITTED IP TO THIS HOSP Condition: Stable Referrals: Brandon Mcpherson MD [Primary Care Provider] - 1-2 days Time of Disposition: 03:53
[2017-12-04 03:21] LABS: INR 1.1 (<1.2); Partial Thromboplastin Time 24.4 sec (22.0-30.0); Prothrombin Time 10.7 sec (9.0-12.0)
[2017-12-04 03:22] LABS: ALT 37 U/L (21-72); AST 23 U/L (17-59); Albumin 3.8 g/dL (3.5-5.0); Alkaline Phosphatase 84 U/L (38-126); Anion Gap 14 mmol/L; Blood Urea Nitrogen 9 mg/dL (9-20); Calcium 9.7 mg/dL (8.4-10.2); Carbon Dioxide 22 mmol/L (22-30); Chloride 105 mmol/L (98-107); Glucose 164 mg/dL (74-99); Potassium 3.8 mmol/L (3.5-5.1); Sodium 141 mmol/L (137-145); Total Bilirubin 2.4 mg/dL (0.2-1.3); Total Protein 6.1 g/dL (6.3-8.2)
[2017-12-04 03:37] LABS: Creatine Kinase 128 U/L (55-170)
[2017-12-04] MEDS ORDERED: ACETAMINOPHEN IV (For NPO) 1,000 MG in SALINE 1 100ML.BAG IVPB ONE (03:37)
[2017-12-04] MEDS ORDERED: NALOXONE 0.4 MG/ML 1 ML VIAL IV PRN (03:37)
[2017-12-04 03:49] LABS: Creatine Kinase MB 1.7 ng/mL (0.0-2.4); Troponin I <0.012 ng/mL (0.000-0.034)
[2017-12-04] MEDS: SODIUM CHLORIDE 0.9% 1,000 ML IV SCH ×3 (03:54→23:59)
[2017-12-04 03:55] LABS: Basophils # (A) 0.1 k/uL (0-0.2); Basophils % (A) 1 %; Eosinophils # (A) 0.1 k/uL (0-0.7); Eosinophils % (A) 1 %; HCT 33.5 % (39.0-53.0); HGB 12.7 gm/dL (13.0-17.5); Hyperchromasia Marked; Lymphocytes # (A) 2.7 k/uL (1.0-4.8); Lymphocytes % (A) 29 %; MCH 29.1 pg (25.0-35.0); MCHC 37.8 g/dL (31.0-37.0); MCV 76.8 fL (80.0-100.0); Mean Platelet Volume 7.8; Monocytes # (A) 0.5 k/uL (0-1.0); Monocytes % (A) 5 %; Neutrophils # (A) 5.8 k/uL (1.3-7.7); Neutrophils % (A) 63 %; Platelet Count 187 k/uL (150-450); Poikilocytosis Slight; RBC 4.36 m/uL (4.30-5.90); WBC 9.3 k/uL (3.8-10.6)
[2017-12-04 06:11] LABS: Glucose,Whole Blood 193 mg/dL (75-99)
[2017-12-04 06:14] LABS: Basophils # (A) 0.1 k/uL (0-0.2); Basophils % (A) 1 %; Eosinophils # (A) 0.1 k/uL (0-0.7); Eosinophils % (A) 1 %; HCT 27.5 % (39.0-53.0); Hyperchromasia Slight; Lymphocytes # (A) 1.7 k/uL (1.0-4.8); Lymphocytes % (A) 27 %; MCH 28.8 pg (25.0-35.0); MCHC 36.3 g/dL (31.0-37.0); MCV 79.5 fL (80.0-100.0); Mean Platelet Volume 8.7; Monocytes # (A) 0.3 k/uL (0-1.0); Monocytes % (A) 5 %; Neutrophils # (A) 4.2 k/uL (1.3-7.7); Neutrophils % (A) 65 %; Platelet Count 148 k/uL (150-450); Poikilocytosis Slight; RBC 3.46 m/uL (4.30-5.90); WBC 6.4 k/uL (3.8-10.6)
[2017-12-04] MEDS: PANTOPRAZOLE 40 MG/10 ML VIAL IV SCH (08:14)
[2017-12-04 10:25] LABS: HCT 24.3 % (39.0-53.0); HGB 8.9 gm/dL (13.0-17.5); Hyperchromasia Marked; MCH 29.1 pg (25.0-35.0); MCHC 36.8 g/dL (31.0-37.0); MCV 79.1 fL (80.0-100.0); Mean Platelet Volume 8.3; Platelet Count 154 k/uL (150-450); Poikilocytosis Slight; RBC 3.08 m/uL (4.30-5.90); RDW 14.1 % (11.5-15.5)
[2017-12-04] MEDS: MORPHINE SULF 5MG/10ML VL IV PRN (10:25)
--- NOTE | 2017-12-04 11:11 | P.HPIM ---
History of Present Illness 47-year-old male who presents to the emergency department with chief complaint of GI bleed. Patient states that he underwent a colonoscopy yesterday with a polyp removed. He states that for the past hour to hour and a half he has been having bright red blood coming from his rectum. He states that he is having lower abdominal cramping. Denies nausea or vomiting, diarrhea or constipation, fevers or chills. He denies any weakness, dizziness or headache. Denies rectal pain. Denies coughing or vomiting of blood. Patient had 2 bloody bowel movements one of which had significant amount of blood and patient is coming of lightheadedness now because of which are good and transfuse him blood and his hemoglobin is 8.9. Patient will be evaluated by gastroenterology. Patient has a diabetic foot ulcer in the left leg with a cast on at and patient is comparing of pain in the ankle area will check with Dr. Woodard regarding this pain in the ankle area where he has a cast. Patient is on very high-dose of Lantus and he says his blood sugars are going down at home since he is nothing by mouth at this time we'll use 50 units of Lantus instead of 110. Review of Systems REVIEW OF SYSTEMS: CONSTITUTIONAL: No fever, no malaise, no fatigue. HEENT: No recent visual problems or hearing problems. Denied any sore throat. CARDIOVASCULAR: No chest pain, orthopnea, PND, no palpitations, no syncope. PULMONARY: No shortness of breath, no cough, no hemoptysis. GASTROINTESTINAL: As described in HPI NEUROLOGICAL: No headaches, no weakness, no numbness. HEMATOLOGICAL: Denies any bleeding or petechiae. GENITOURINARY: Denies any burning micturition, frequency, or urgency. MUSCULOSKELETAL/RHEUMATOLOGICAL: Mentioned in HPI ENDOCRINE: Denies any polyuria or polydipsia. The rest of the 14-point review of systems is negative. Past Medical History Past Medical History: Asthma, Diabetes Mellitus, GERD/Reflux, Hypertension, Osteoarthritis (OA), Seizure Disorder, Skin Disorder, Sleep Apnea/CPAP/BIPAP Additional Past Medical History / Comment(s): Abd pain,states "poss UTI-sees Dr Oriana Mcpherson on 11-29-17 for appt-and recent admission to [facility] for heart problems", LAST SEIZURE 28 YRS AGO. chronic back pain. DOES NOT USE CPAP. SPINAL STENOSIS, DDD IN BACK, SCOLIOSIS, IBS, psoriasis, frequent urination, chronic diarrhea/ constipation issues History of Any Multi-Drug Resistant Organisms: None Reported Past Surgical History: Cholecystectomy, Heart Catheterization, Tonsillectomy Additional Past Surgical History / Comment(s): PAIN PROCEDURES, colonscopy with polyp removal 12/03/17 Past Anesthesia/Blood Transfusion Reactions: Motion Sickness Past Psychological History: ADD/ADHD, Schizophrenia, Depression, Schizophrenia Smoking Status: Current some day smoker Past Alcohol Use History: None Reported Additional Past Alcohol Use History / Comment(s): Pt states he started smoking at age 28 and smokes a pack a day. Past Drug Use History: Marijuana Additional Drug Use History / Comment(s): patient states occcaasional marijuana use - Past Family History Father Family Medical History: Unable to Obtain Additional Family Medical History / Comment(s): Father left home when pt was 5 yrs old. Mother Family Medical History: No Reported History Additional Family Medical History / Comment(s): Mother at age 55yrs of [place]. Medications and Allergies Home Medications Medication Instructions Recorded Confirmed Type Lisinopril [Zestril] 10 mg PO QAM 06/06/14 12/04/17 History Insulin Glargine [Lantus] 110 unit SQ HS 12/17/14 12/04/17 History INSULIN LISPRO (HumaLOG) [HumaLOG] See Protocol SQ AC-TID 08/16/15 12/04/17 History Divalproex Sodium [Depakote] 500 mg PO TID 01/10/17 12/04/17 History traZODone HCL 50 mg PO HS 11/08/17 12/04/17 History Cetirizine HCl [Zyrtec] 10 mg PO DAILY 11/17/17 12/04/17 History diphenhydrAMINE HCL 25 mg PO TID PRN 11/17/17 12/04/17 History [Diphenhydramine HCl] Simethicone [Gas-X] 125 mg PO QID #10 capsule 11/27/17 12/04/17 Rx Hyoscyamine Sulfate [Levsin] 0.125 mg PO Q4H 11/29/17 12/04/17 History Omeprazole 20 mg PO BID 11/30/17 12/04/17 History Alfuzosin HCl [Alfuzosin HCl ER] 10 mg PO DAILY 12/04/17 12/04/17 History Polyethylene Glycol 3350 [Miralax] 17 gm PO DAILY 12/04/17 12/04/17 History Allergies Allergy/AdvReac Type Severity Reaction Status Date / Time bisacodyl Allergy dizziness Verified 12/04/17 08:49 [From Dulcolax (bisacodyl)] gabapentin Allergy seizures Verified 12/04/17 08:49 lactulose Allergy Rash/Hives Verified 12/04/17 08:49 Penicillins Allergy Unknown Verified 12/04/17 08:49 Childhood clozapine [From Clozaril] AdvReac Severe Aggression Verified 12/04/17 08:49 Physical Exam Vitals: Vital Signs Temp Pulse Pulse Resp BP BP Pulse Ox 12/04/17 10:34 87 14 107/66 12/04/17 09:50 98.0 F 85 18 106/66 98 12/04/17 08:00 98.7 F 76 16 127/77 99 12/04/17 06:29 73 18 110/67 97 12/04/17 06:00 109/70 12/04/17 05:40 71 18 12/04/17 05:10 97.0 F L 71 18 117/76 12/04/17 04:38 97.4 F L 77 14 119/73 98 12/04/17 03:55 97.5 F L 77 18 158/84 100 12/04/17 03:01 76 19 130/76 97 12/04/17 02:36 98.8 F 86 16 126/69 98 Intake and Output 12/03/17 12/04/17 12/04/17 22:59 06:59 14:59 Intake Total 300 Output Total 150 Balance 150 Intake: IV 300 0.9 300 Output: Urine 150 Other: Voiding Method Toilet Toilet Urinal Urinal Weight 108.862 kg PHYSICAL EXAMINATION: GENERAL: The patient is alert and oriented x3, not in any acute distress. Well developed, well nourished. Obese HEENT: Pupils are round and equally reacting to light. EOMI. No scleral icterus. No conjunctival pallor. Normocephalic, atraumatic. No pharyngeal erythema. No thyromegaly. CARDIOVASCULAR: S1 and S2 present. No murmurs, rubs, or gallops. PULMONARY: Chest is clear to auscultation, no wheezing or crackles. ABDOMEN: Soft, nontender, nondistended, normoactive bowel sounds. No palpable organomegaly. MUSCULOSKELETAL: No joint swelling or deformity. EXTREMITIES: No cyanosis, clubbing, or pedal edema. Patient has a cast and a bone to the left leg NEUROLOGICAL: Gross neurological examination did not reveal any focal deficits. SKIN: No rashes. Results CBC & Chem 7: 12/04/17 10:14 12/04/17 02:58 Labs: Abnormal Lab Results - Last 24 Hours (Table) 12/04/17 12/04/17 12/04/17 Range/Units 02:58 02:58 02:58 RBC (4.30-5.90) m/uL Hgb 12.7 L (13.0-17.5) gm/dL Hct 33.5 L (39.0-53.0) % MCV 76.8 L (80.0-100.0) fL MCHC 37.8 H (31.0-37.0) g/dL Plt Count (150-450) k/uL Glucose 164 H (74-99) mg/dL POC Glucose (mg/dL) (75-99) mg/dL Total Bilirubin 2.4 H (0.2-1.3) mg/dL Total Protein 6.1 L (6.3-8.2) g/dL Crossmatch See Detail 12/04/17 12/04/17 12/04/17 Range/Units 05:53 06:09 10:14 RBC 3.46 L 3.08 L (4.30-5.90) m/uL Hgb 10.0 L D 8.9 L (13.0-17.5) gm/dL Hct 27.5 L 24.3 L (39.0-53.0) % MCV 79.5 L 79.1 L (80.0-100.0) fL MCHC (31.0-37.0) g/dL Plt Count 148 L (150-450) k/uL Glucose (74-99) mg/dL POC Glucose (mg/dL) 193 H (75-99) mg/dL Total Bilirubin (0.2-1.3) mg/dL Total Protein (6.3-8.2) g/dL Crossmatch Thrombosis Risk Factor Assmnt - Choose All That Apply Any of the Below Risk Factors Present?: Yes Each Factor Represents 1 point: Age 41-60 years Other Risk Factors: No Other congenital or acquired thrombophilia - If yes, enter type in comment: No Each Risk Factor Represents 5 Points: Hip, pelvis, or leg fracture (< 1 month) Thrombosis Risk Factor Assessment Total Risk Factor Score: 6 Thrombosis Risk Factor Assessment Level: High Risk Assessment and Plan Plan: -Lower GI bleed: Status post polyp removal patient is on traumatic because of which we wouldn't transfuse blood if patient has clinical significant GI bleed today morning. Type 2 diabetes mellitus Insulin management as mentioned in the HPI will cut down insulin 50 units -diabetic ulcer on the lower limb management as mentioned above was -Seizure disorder: Patient will be resumed on his home medications -Hyperlipidemia next and-hypertension -Sleep apnea obesity patient will continue with his CPAP machine -
[2017-12-04 11:46] LABS: Glucose,Whole Blood 173 mg/dL (75-99)
[2017-12-04] MEDS ORDERED: SODIUM CHLORIDE 0.9% 1,000 ML IV ONE (11:58)
[2017-12-04] MEDS ORDERED: LIDOCAINE URO-JET JELLY 2% 5 ML KIT URETHRAL ONE (11:58)
[2017-12-04] MEDS: HYOSCYAMINE SULFATE 0.125 MG TAB PO SCH ×4 (12:41→23:59)
--- NOTE | 2017-12-04 13:27 | P.CNPUL ---
History of Present Illness Consult date: 12/04/17 Requesting physician: Stiven Young Reason for consult: other (Acute GI bleeding) Chief complaint: Rectal bleeding History of present illness: This is a 47-year-old white male with history of irritable bowel syndrome, underwent colonoscopy and polypectomy yesterday. However later in the evening, patient presents to the ER with recurrent episodes of Bright blood red per rectum. Patient was also complaining of lower abdominal cramps, no nausea no vomiting, no hematemesis. No diarrhea. No fever no chills. Patient was hemodynamically stable, and his hemoglobin was 12.7 at the time of evaluation in the ER. His coagulation profile was normal. And it was felt that the bleeding was most likely related to his recent polypectomy. Patient was not felt to be sick enough to be admitted to the ICU, I was notified about this patient from the ER physician, and we both felt that he is stable enough to be admitted to the floor since there was no active bleeding at the time. And his hemoglobin was 12.7. Patient was admitted to selective, apparently overnight the patient had more episodes of bright red blood per rectum, and this morning his hemoglobin was down to 8.9. It was 10.0 around 6 AM in the morning. And 12.7 late last night. Considering the steady drop in his hemoglobin, and considering the patient was getting more lightheaded, but not hypotensive, transferred to the ICU, and I was asked to see him on consultation. Upon my evaluation, the patient was noted to be a bit pale, and his blood pressure was 120/70. Heart rate was 110. Patient is about to receive a unit of packed RBCs , and I gave him a liter of fluid bolus. Patient is yet to be seen by gastroenterology to evaluate his GI bleeding which is felt to be lower GI in nature unless proven otherwise. Patient denies any headaches, no blurred vision , no dizziness, but he feels a bit lightheaded. Denies any hematemesis, no chest pain, no nausea no vomiting, Review of Systems 14 point review of systems were obtained, please refer to positives in HPI otherwise remaining systems are negative. Past Medical History Past Medical History: Asthma, Diabetes Mellitus, GERD/Reflux, Hypertension, Osteoarthritis (OA), Seizure Disorder, Skin Disorder, Sleep Apnea/CPAP/BIPAP Additional Past Medical History / Comment(s): Abd pain,states "poss UTI-sees Dr Oriana Mcpherson on 11-29-17 for appt-and recent admission to [facility] for heart problems", LAST SEIZURE 28 YRS AGO. chronic back pain. DOES NOT USE CPAP. SPINAL STENOSIS, DDD IN BACK, SCOLIOSIS, IBS, psoriasis, frequent urination, chronic diarrhea/ constipation issues History of Any Multi-Drug Resistant Organisms: None Reported Past Surgical History: Cholecystectomy, Heart Catheterization, Tonsillectomy Additional Past Surgical History / Comment(s): PAIN PROCEDURES, colonscopy with polyp removal 12/03/17 Past Anesthesia/Blood Transfusion Reactions: Motion Sickness Past Psychological History: ADD/ADHD, Schizophrenia, Depression, Schizophrenia Smoking Status: Current some day smoker Past Alcohol Use History: None Reported Additional Past Alcohol Use History / Comment(s): Pt states he started smoking at age 28 and smokes a pack a day. Past Drug Use History: Marijuana Additional Drug Use History / Comment(s): patient states occcaasional marijuana use - Past Family History Father Family Medical History: Unable to Obtain Additional Family Medical History / Comment(s): Father left home when pt was 5 yrs old. Mother Family Medical History: No Reported History Additional Family Medical History / Comment(s): Mother at age 55yrs of [place]. Medications and Allergies Home Medications Medication Instructions Recorded Confirmed Type Lisinopril [Zestril] 10 mg PO QAM 06/06/14 12/04/17 History Insulin Glargine [Lantus] 110 unit SQ HS 12/17/14 12/04/17 History INSULIN LISPRO (HumaLOG) [HumaLOG] See Protocol SQ AC-TID 08/16/15 12/04/17 History Divalproex Sodium [Depakote] 500 mg PO TID 01/10/17 12/04/17 History traZODone HCL 50 mg PO HS 11/08/17 12/04/17 History Cetirizine HCl [Zyrtec] 10 mg PO DAILY 11/17/17 12/04/17 History diphenhydrAMINE HCL 25 mg PO TID PRN 11/17/17 12/04/17 History [Diphenhydramine HCl] Simethicone [Gas-X] 125 mg PO QID #10 capsule 11/27/17 12/04/17 Rx Hyoscyamine Sulfate [Levsin] 0.125 mg PO Q4H 11/29/17 12/04/17 History Omeprazole 20 mg PO BID 11/30/17 12/04/17 History Alfuzosin HCl [Alfuzosin HCl ER] 10 mg PO DAILY 12/04/17 12/04/17 History Polyethylene Glycol 3350 [Miralax] 17 gm PO DAILY 12/04/17 12/04/17 History Allergies Allergy/AdvReac Type Severity Reaction Status Date / Time bisacodyl Allergy dizziness Verified 12/04/17 08:49 [From Dulcolax (bisacodyl)] gabapentin Allergy seizures Verified 12/04/17 08:49 lactulose Allergy Rash/Hives Verified 12/04/17 08:49 Penicillins Allergy Unknown Verified 12/04/17 08:49 Childhood clozapine [From Clozaril] AdvReac Severe Aggression Verified 12/04/17 08:49 Physical Exam Vitals: Vital Signs Temp Pulse Pulse Resp BP BP Pulse Ox 12/04/17 13:00 80 14 118/66 99 12/04/17 12:45 98.4 F 84 22 118/66 98 12/04/17 12:40 84 21 98 12/04/17 12:35 98.3 F 81 12 122/94 98 12/04/17 12:30 90 20 97 12/04/17 12:20 87 16 122/94 96 12/04/17 12:10 88 19 95 12/04/17 12:00 81 20 120/73 99 12/04/17 11:51 98.2 F 98 18 116/68 97 12/04/17 10:34 87 14 107/66 12/04/17 09:50 98.0 F 85 18 106/66 98 12/04/17 08:00 98.7 F 76 16 127/77 99 12/04/17 06:29 73 18 110/67 97 12/04/17 06:00 109/70 12/04/17 05:40 71 18 12/04/17 05:10 97.0 F L 71 18 117/76 12/04/17 04:38 97.4 F L 77 14 119/73 98 12/04/17 03:55 97.5 F L 77 18 158/84 100 12/04/17 03:01 76 19 130/76 97 12/04/17 02:36 98.8 F 86 16 126/69 98 Intake and Output 12/03/17 12/04/17 12/04/17 22:59 06:59 14:59 Intake Total 300 0 Output Total 150 100 Balance 150 -100 Intake: IV 300 0.9 300 Blood Product 0 Rc As-1 Unit 0 [id number] Output: Urine 150 100 Other: Voiding Method Toilet Toilet Urinal Urinal # Bowel Movements 1 Weight 108.862 kg Physical Exam: Revealed a 47-year-old white male in no form of respiratory distress. Looks slightly pale. Head: Atraumatic, normocephalic. Eyes: PERRLA, EOMI, no icterus. HEENT: Dry mucous membranes noted. [Neck is supple.] [No neck masses.] [No thyromegaly.] [No JVD.] Chest: [Clear throughout, no crackles, no rhonchi, no wheezes.] Cardiac Exam: [Normal S1 and S2, no S3 gallop, no murmur.] Abdomen: [Soft, nontender, no megaly, no rebound, no guarding, normal bowel sounds.] Extremities: [No clubbing, no edema, no cyanosis.] Neurological Exam: [No focal neurologic deficit.] Psychiatric: Normal mood affect and mental status examination. Lymphatics: No lymphadenopathy. Results - Laboratory Findings CBC and BMP: 12/04/17 10:14 12/04/17 02:58 PT/INR, D-dimer PT 10.7 sec (9.0-12.0) 12/04/17 02:58 INR 1.1 (<1.2) 12/04/17 02:58 Abnormal lab findings: Abnormal Labs 12/04/17 12/04/17 12/04/17 02:58 02:58 02:58 RBC Hgb 12.7 L Hct 33.5 L MCV 76.8 L MCHC 37.8 H Plt Count Glucose 164 H POC Glucose (mg/dL) Total Bilirubin 2.4 H Total Protein 6.1 L Crossmatch See Detail 12/04/17 12/04/17 12/04/17 05:53 06:09 10:14 RBC 3.46 L 3.08 L Hgb 10.0 L D 8.9 L Hct 27.5 L 24.3 L MCV 79.5 L 79.1 L MCHC Plt Count 148 L Glucose POC Glucose (mg/dL) 193 H Total Bilirubin Total Protein Crossmatch 12/04/17 11:44 RBC Hgb Hct MCV MCHC Plt Count Glucose POC Glucose (mg/dL) 173 H Total Bilirubin Total Protein Crossmatch Assessment and Plan Assessment: Impression: 1 acute lower GI bleeding, most likely secondary to his recent polypectomy. Patient is to be seen by gastroenterology, and may require colonoscopy again and cauterization. 2 acute anemia secondary to GI blood losses, patient is to receive 1 unit of packed RBCs, we'll continue to monitor his hemoglobin closely, may need more blood transfusions. 3 history of multiple comorbidities including mild bronchial asthma presently stable, type 2 diabetes without complications, GERD with reflux, hypertension, osteoarthritis, irritable bowel syndrome, history of seizure disorder. And history of obstructive sleep apnea syndrome. Recommendation: We'll closely monitor in the intensive care unit, awaiting further input from gastroenterology on the case. Continue home meds, avoid any anticoagulation therapy for now, will follow closely. Time with Patient: Greater than 30
[2017-12-04 15:42] LABS: Basophils % (A) 1 %; Eosinophils # (A) 0.1 k/uL (0-0.7); Eosinophils % (A) 1 %; HCT 23.6 % (39.0-53.0); HGB 8.4 gm/dL (13.0-17.5); Hyperchromasia Moderate; Lymphocytes # (A) 1.7 k/uL (1.0-4.8); Lymphocytes % (A) 27 %; MCHC 35.8 g/dL (31.0-37.0); MCV 80.8 fL (80.0-100.0); Mean Platelet Volume 8.8; Monocytes # (A) 0.3 k/uL (0-1.0); Monocytes % (A) 4 %; Neutrophils # (A) 4.2 k/uL (1.3-7.7); Neutrophils % (A) 66 %; Platelet Count 127 k/uL (150-450); Poikilocytosis Slight; RBC 2.91 m/uL (4.30-5.90); RDW 14.5 % (11.5-15.5); WBC 6.4 k/uL (3.8-10.6)
[2017-12-04] MEDS: DIVALPROEX 500 MG TABLET.DR PO SCH ×2 (17:26→21:25)
[2017-12-04 20:25] LABS: Glucose,Whole Blood 234 mg/dL (75-99)
[2017-12-04] MEDS: ARTIFICIAL TEARS-HYPROMELLOSE DROPS 15 ML BTL BOTH EYES PRN (20:37)
[2017-12-04] MEDS: INSULIN DETEMIR 100 UNIT/ML 10 ML VIAL SQ SCH (21:24)
[2017-12-04] MEDS: INSULIN ASPART 100 UNIT/ML 1 ML 10 ML VIAL SQ SCH (21:24)
--- NOTE | 2017-12-04 21:33 | CONS ---
CONSULTATION DATE OF CONSULTATION: 12/04/17. REQUESTING PHYSICIAN: Dr. Mckeon. REASON FOR CONSULTATION: Acute lower GI bleed. HISTORY OF PRESENT ILLNESS: The patient is a 47-year-old pleasant white male with a history of chronic constipation, underwent a colonoscopy by Dr. Evangelista yesterday morning and was noted to have a 1 cm sigmoid polyp that was removed by snare polypectomy. The patient had an uneventful recovery and was discharged home. Yesterday he started having some abdominal discomfort and later on followed by multiple episodes of bright red blood per rectum. He had about 3 episodes, came to the emergency room and subsequently admitted to [facility] Unit. This morning, he had 2 episodes of large bloody bowel movements and became somewhat hypotensive and dizzy and the patient was hence transferred to the intensive care unit. Since being in ICU he had only 1 bowel movement that was approximately 200 mL of dark colored blood. The patient denies any abdominal pain. Reports no nausea, vomiting. Reports no fever, chills, or night sweats. His initial hemoglobin was 12, dropped to 10.5 g/dL and subsequently and he is presently receiving 1 unit of blood transfusion. He is feeling much better. His abdominal pain has resolved. PAST MEDICAL HISTORY: Significant for GERD, hypertension, degenerative joint disease, seizure disorder, diabetes mellitus, asthma. PAST SURGICAL HISTORY: Cholecystectomy, cardiac cath, tonsillectomy. PSYCHIATRIC HISTORY: Anxiety, depression and schizophrenia. FAMILY HISTORY: Does not know his father, mother at age 52 with [place]. MEDICATIONS: At home include Zestril, Lantus, Humalog, Depakote, trazodone, Gas-X, Benadryl and Zyrtec, Levsin, MiraLAX, Prilosec. ALLERGIES: ALLERGIES TO MIRALAX, GABAPENTIN, LACTULOSE, PENICILLIN, and CLOZARIL. SOCIAL HISTORY: Chronic smoker. No alcohol use. REVIEW OF SYSTEMS: Cardiopulmonary: He denies chest pain, shortness of breath. Genitourinary: No dysuria or hematuria. Musculoskeletal: Unremarkable. Skin: Unremarkable. Endocrine: Unremarkable. Psychiatric: Unremarkable. Neurology: Unremarkable. ENT/vision unremarkable. Constitutional: No recent weight loss, no fevers, chills or night sweats. PHYSICAL EXAMINATION: . Vital signs stable. Blood pressure is 124/77, pulse rate 93, and afebrile. HEENT examination unremarkable. Conjunctivae pink. Sclerae anicteric. Oral cavity no lesions. Neck: No jugular venous distention or lymph node enlargement. Chest: Clear to auscultation. Heart: Regular rate and rhythm. Abdomen soft, bowel sounds positive. No organomegaly. Extremities: No pedal edema. Skin: No rashes. NEUROLOGICAL: Alert and oriented times three. No focal deficits. LAB: Done at the time of admission to the hospital: Hemoglobin was 12.7, platelets 187, WBC 10.3. PT INR is within normal limits. Basic metabolic panel is in normal limits. This morning hemoglobin was down to 10 and subsequently dropped to 8.9, he received one unit of blood transfusion, the repeat HGB was 8.4 g/dL. IMPRESSION: This is a patient who underwent an outpatient colonoscopy for chronic constipation by Dr. Evangelista yesterday morning and a he was noted to have a 1 to 1.5 cm sigmoid polyp that was removed by snare polypectomy. The patient was discharged home. had multiple episodes of bright red blood per rectum and hence was admitted to hospital with acute postpolypectomy lower gastrointestinal bleed. This morning while he was on the floor, he had more bleeding and became somewhat hemodynamically unstable and was transferred to the intensive care unit. Being in ICU for the last five hours, he bowel movement, it was black in color . He is presently receiving one unit of blood transfusion for hemoglobin of 8.9 and hemodynamically instability. The patient is much better, and hemodynamically very stable currently. RECOMMENDATIONS: 1. clear liquid diet. 2. CBC every six hours. 3. I had a lengthy discussion with the patient regarding management of postpolypectomy bleed. If he continues to slowly stop the bleeding, we will continue with a conservative approach. However, if he has evening and night, we may have to consider a flexible sigmoidoscopy for possible cauterization. At this time we will monitor CBC every 6 hours and follow him closely during his hospital stay. Thank you for this consultation. MMODL / IJN: [id number] /
[2017-12-05 00:10] LABS: Basophils % (A) 0 %; Eosinophils # (A) 0.1 k/uL (0-0.7); Eosinophils % (A) 2 %; HCT 22.6 % (39.0-53.0); HGB 8.1 gm/dL (13.0-17.5); Hyperchromasia Slight; Lymphocytes # (A) 1.7 k/uL (1.0-4.8); Lymphocytes % (A) 29 %; MCHC 35.9 g/dL (31.0-37.0); Mean Platelet Volume 8.5; Monocytes # (A) 0.3 k/uL (0-1.0); Monocytes % (A) 5 %; Neutrophils # (A) 3.7 k/uL (1.3-7.7); Neutrophils % (A) 63 %; Platelet Count 106 k/uL (150-450); Poikilocytosis Slight; RDW 14.5 % (11.5-15.5); WBC 5.8 k/uL (3.8-10.6)
[2017-12-05] MEDS: MORPHINE SULF 5MG/10ML VL IV PRN (01:12)
[2017-12-05] MEDS: HYOSCYAMINE SULFATE 0.125 MG TAB PO SCH ×5 (03:28→20:58)
[2017-12-05 05:47] LABS: Basophils % (A) 0 %; Eosinophils # (A) 0.1 k/uL (0-0.7); Eosinophils % (A) 1 %; HCT 20.5 % (39.0-53.0); HGB 7.4 gm/dL (13.0-17.5); Hyperchromasia Moderate; Lymphocytes # (A) 1.6 k/uL (1.0-4.8); Lymphocytes % (A) 32 %; MCH 29.5 pg (25.0-35.0); MCHC 36.2 g/dL (31.0-37.0); MCV 81.4 fL (80.0-100.0); Mean Platelet Volume 7.5; Monocytes # (A) 0.2 k/uL (0-1.0); Monocytes % (A) 5 %; Neutrophils % (A) 60 %; Platelet Count 102 k/uL (150-450); Poikilocytosis Slight; RBC 2.52 m/uL (4.30-5.90); RDW 14.6 % (11.5-15.5); WBC 4.9 k/uL (3.8-10.6)
[2017-12-05 05:50] LABS: Anion Gap 6 mmol/L; Blood Urea Nitrogen 11 mg/dL (9-20); Carbon Dioxide 22 mmol/L (22-30); Chloride 111 mmol/L (98-107); Glucose 97 mg/dL (74-99); Magnesium 1.5 mg/dL (1.6-2.3); Phosphorus 2.7 mg/dL (2.5-4.5); Potassium 3.8 mmol/L (3.5-5.1); Sodium 139 mmol/L (137-145)
[2017-12-05] MEDS ORDERED: Magnesium Replacement Protocol 1 EACH MISC MISCELLANE PRN (06:16)
[2017-12-05] MEDS ORDERED: Potassium Replacement Protocol 1 EACH MISC MISCELLANE PRN (06:16)
[2017-12-05] MEDS ORDERED: POTASSIUM CHLORIDE 10 MEQ in WATER FOR INJECTION 1 100ML.BAG IVPB SCH (06:30)
[2017-12-05 07:13] LABS: Glucose,Whole Blood 112 mg/dL (75-99)
[2017-12-05] MEDS: PANTOPRAZOLE 40 MG/10 ML VIAL IV SCH (07:41)
[2017-12-05] MEDS: TAMSULOSIN 0.4 MG CAP.ER.24H PO SCH (07:42)
[2017-12-05] MEDS: DIVALPROEX 500 MG TABLET.DR PO SCH ×3 (07:43→20:58)
[2017-12-05] MEDS: MAGNESIUM SULFATE-D5W PMX 1 GM in DEXTROSE/WATER 1 100ML.BAG IVPB SCH ×2 (07:43→09:27)
[2017-12-05] MEDS: POTASSIUM CHLORIDE 10 MEQ in WATER FOR INJECTION 1 100ML.BAG IVPB SCH ×2 (07:43→11:34)
[2017-12-05 07:52] LABS: Glucose,Whole Blood 115 mg/dL (75-99)
[2017-12-05] MEDS: INSULIN ASPART 100 UNIT/ML 1 ML 10 ML VIAL SQ SCH ×4 (08:42→21:01)
--- NOTE | 2017-12-05 11:26 | P.PN ---
Subjective 47-year-old admitted after lower GI bleed posterior polypectomy. His regimen bleed improved patient hemoglobin is on 0.4 patient will be transferred out of ICU after next hemoglobin check. Patient has a left leg cast for which she will follow with the vascular surgery as an outpatient. Denied any lightheadedness today. Patient is feeling well. Next Constitutional: Denied any fatigue denied any fever. Cardio vascular: denied any chest pain, palpitations Gastrointestinal denied any nausea vomiting Pulmonary: Denied any shortness of breath cough Neurologic denied any new focal deficits Objective - Vital Signs Vital signs: Vital Signs Temp 98.8 F 12/05/17 08:00 Pulse 83 12/05/17 10:00 Resp 20 12/05/17 10:00 BP 109/61 12/05/17 10:00 Pulse Ox 98 12/05/17 10:00 Intake & Output 12/04/17 12/05/17 12/05/17 18:59 06:59 18:59 Intake Total 810 1820 800 Output Total 820 1160 440 Balance -10 660 360 Weight 91.6 kg Intake: IV 500 1200 400 Sodium Chloride 0.9% 1, 500 1200 400 000 ml @ 100 mls/hr IV . Q10H [facility] Rx#:[id number] Intake, IV Titration 400 Amount Magnesium Sulfate-D5w Pmx 200 1 gm In Dextrose/Water 1 100ml.bag @ 100 mls/hr IVPB Q1H [facility] Rx#: [id number] Potassium Chloride 10 meq 200 In Water For Injection 1 100ml.bag @ 100 mls/hr IVPB Q1H [facility] Rx#: [id number] Blood Product 310 620 Rc As-1 Unit 310 [id number] Rc As-1 Unit 310 [id number] Output: Urine 620 960 440 Stool 200 200 Other: Voiding Method Indwelling Catheter Indwelling Catheter Indwelling Catheter # Bowel Movements 1 0 - Exam PHYSICAL EXAMINATION: GENERAL: The patient is alert and oriented x3, not in any acute distress. Well developed, well nourished. HEENT: Pupils are round and equally reacting to light. EOMI. No scleral icterus. Does have conjunctival pallor. Normocephalic, atraumatic. No pharyngeal erythema. No thyromegaly. CARDIOVASCULAR: S1 and S2 present. No murmurs, rubs, or gallops. PULMONARY: Chest is clear to auscultation, no wheezing or crackles. ABDOMEN: Soft, nontender, nondistended, normoactive bowel sounds. No palpable organomegaly. MUSCULOSKELETAL: No joint swelling or deformity. EXTREMITIES: No cyanosis, clubbing, or pedal edema. NEUROLOGICAL: Gross neurological examination did not reveal any focal deficits. SKIN: No rashes. - Labs CBC & Chem 7: 12/05/17 05:09 12/05/17 05:09 Labs: Abnormal Lab Results - Last 24 Hours (Table) 12/04/17 12/04/17 12/04/17 Range/Units 02:58 11:44 15:32 RBC 2.91 L (4.30-5.90) m/uL Hgb 8.4 L (13.0-17.5) gm/dL Hct 23.6 L (39.0-53.0) % Plt Count 127 L (150-450) k/uL Chloride (98-107) mmol/L POC Glucose (mg/dL) 173 H (75-99) mg/dL Calcium (8.4-10.2) mg/dL Magnesium (1.6-2.3) mg/dL Crossmatch See Detail 12/04/17 12/04/17 12/05/17 Range/Units 20:24 23:59 05:09 RBC 2.80 L 2.52 L (4.30-5.90) m/uL Hgb 8.1 L 7.4 L (13.0-17.5) gm/dL Hct 22.6 L 20.5 L (39.0-53.0) % Plt Count 106 L 102 L (150-450) k/uL Chloride (98-107) mmol/L POC Glucose (mg/dL) 234 H (75-99) mg/dL Calcium (8.4-10.2) mg/dL Magnesium (1.6-2.3) mg/dL Crossmatch 12/05/17 12/05/17 12/05/17 Range/Units 05:09 07:10 07:50 RBC (4.30-5.90) m/uL Hgb (13.0-17.5) gm/dL Hct (39.0-53.0) % Plt Count (150-450) k/uL Chloride 111 H (98-107) mmol/L POC Glucose (mg/dL) 112 H 115 H (75-99) mg/dL Calcium 8.0 L (8.4-10.2) mg/dL Magnesium 1.5 L (1.6-2.3) mg/dL Crossmatch Assessment and Plan Plan: -Lower GI bleed: Status post polyp removal patient is on traumatic. GI bleed resolved patient is implanted at this point of time patient is clinically doing well. Type 2 diabetes mellitus Insulin patient blood sugars are well controlled with half a dose of long-acting insulin which will be continued at this time. -diabetic ulcer on the lower limb management as mentioned above was -Seizure disorder: Patient will be resumed on his home medications -Hyperlipidemia -hypertension -Sleep apnea obesity patient will continue with his CPAP machine -
[2017-12-05] MEDS: SODIUM CHLORIDE 0.9% 1,000 ML IV SCH (11:34)
[2017-12-05 11:40] LABS: Glucose,Whole Blood 162 mg/dL (75-99)
--- NOTE | 2017-12-05 12:01 | P.PN ---
Subjective Progress Note Date: 12/05/17 Principal diagnosis: Acute lower GI bleeding This is a 47-year-old white male with history of irritable bowel syndrome, underwent colonoscopy and polypectomy yesterday. However later in the evening, patient presents to the ER with recurrent episodes of Bright blood red per rectum. Patient was also complaining of lower abdominal cramps, no nausea no vomiting, no hematemesis. No diarrhea. No fever no chills. Patient was hemodynamically stable, and his hemoglobin was 12.7 at the time of evaluation in the ER. His coagulation profile was normal. And it was felt that the bleeding was most likely related to his recent polypectomy. Patient was not felt to be sick enough to be admitted to the ICU, I was notified about this patient from the ER physician, and we both felt that he is stable enough to be admitted to the floor since there was no active bleeding at the time. And his hemoglobin was 12.7. Patient was admitted to selective, apparently overnight the patient had more episodes of bright red blood per rectum, and this morning his hemoglobin was down to 8.9. It was 10.0 around 6 AM in the morning. And 12.7 late last night. Considering the steady drop in his hemoglobin, and considering the patient was getting more lightheaded, but not hypotensive, transferred to the ICU, and I was asked to see him on consultation. Upon my evaluation, the patient was noted to be a bit pale, and his blood pressure was 120/70. Heart rate was 110. Patient is about to receive a unit of packed RBCs , and I gave him a liter of fluid bolus. Patient is yet to be seen by gastroenterology to evaluate his GI bleeding which is felt to be lower GI in nature unless proven otherwise. Patient denies any headaches, no blurred vision , no dizziness, but he feels a bit lightheaded. Denies any hematemesis, no chest pain, no nausea no vomiting, Patient was reevaluated today on 12/05/2017, seems to be doing better today, although his hemoglobin is down to 7.4, and it was 8.1 yesterday. Clinically however there is no active bleeding, and he was supposed to undergo sigmoidoscopy today with possible cauterization, but considering the bleeding is inactive at present and the patient seems to be stable, Dr. Almazan decided to cancel plans for sigmoidoscopy today. Patient is hemodynamically stable. He received a total of 2 units of packed RBCs since admission. However his admitting hemoglobin was over 12.5, and today is 7.4 in spite of 2 units of packed RBCs in the last 2 days. Rest of the labs were noted to be unremarkable. Objective - Vital Signs Vital signs: Vital Signs Temp 98.8 F 12/05/17 08:00 Pulse 80 12/05/17 11:00 Resp 21 12/05/17 11:00 BP 105/64 12/05/17 11:00 Pulse Ox 98 12/05/17 11:00 Intake & Output 12/04/17 12/05/17 12/05/17 18:59 06:59 18:59 Intake Total 810 1820 900 Output Total 820 1160 660 Balance -10 660 240 Weight 91.6 kg Intake: IV 500 1200 500 Sodium Chloride 0.9% 1, 500 1200 500 000 ml @ 100 mls/hr IV . Q10H [facility] Rx#:[id number] Intake, IV Titration 400 Amount Magnesium Sulfate-D5w Pmx 200 1 gm In Dextrose/Water 1 100ml.bag @ 100 mls/hr IVPB Q1H [facility] Rx#: [id number] Potassium Chloride 10 meq 200 In Water For Injection 1 100ml.bag @ 100 mls/hr IVPB Q1H [facility] Rx#: [id number] Blood Product 310 620 Rc As-1 Unit 310 [id number] Rc As-1 Unit 310 [id number] Output: Urine 620 960 660 Stool 200 200 Other: Voiding Method Indwelling Catheter Indwelling Catheter Indwelling Catheter # Bowel Movements 1 0 - Exam Physical Exam: Revealed a 47-year-old white male in no form of respiratory distress. Remains slightly pale Head: Atraumatic, normocephalic. Eyes: PERRLA, EOMI, no icterus. HEENT: Moist mucous membranes noted. [Neck is supple.] [No neck masses.] [No thyromegaly.] [No JVD.] Chest: [Clear throughout, no crackles, no rhonchi, no wheezes.] Cardiac Exam: [Normal S1 and S2, no S3 gallop, no murmur.] Abdomen: [Soft, nontender, no megaly, no rebound, no guarding, normal bowel sounds.] Extremities: [No clubbing, no edema, no cyanosis. Left lower extremity is in a cast, had previous history of diabetic foot ulcer.] Neurological Exam: [No focal neurologic deficit.] Psychiatric: Normal mood affect and mental status examination. Lymphatics: No lymphadenopathy. - Labs CBC & Chem 7: 12/05/17 05:09 12/05/17 05:09 Labs: Abnormal Lab Results - Last 24 Hours (Table) 12/04/17 12/04/17 12/04/17 Range/Units 02:58 15:32 20:24 RBC 2.91 L (4.30-5.90) m/uL Hgb 8.4 L (13.0-17.5) gm/dL Hct 23.6 L (39.0-53.0) % Plt Count 127 L (150-450) k/uL Chloride (98-107) mmol/L POC Glucose (mg/dL) 234 H (75-99) mg/dL Calcium (8.4-10.2) mg/dL Magnesium (1.6-2.3) mg/dL Crossmatch See Detail 12/04/17 12/05/17 12/05/17 Range/Units 23:59 05:09 05:09 RBC 2.80 L 2.52 L (4.30-5.90) m/uL Hgb 8.1 L 7.4 L (13.0-17.5) gm/dL Hct 22.6 L 20.5 L (39.0-53.0) % Plt Count 106 L 102 L (150-450) k/uL Chloride 111 H (98-107) mmol/L POC Glucose (mg/dL) (75-99) mg/dL Calcium 8.0 L (8.4-10.2) mg/dL Magnesium 1.5 L (1.6-2.3) mg/dL Crossmatch 12/05/17 12/05/17 12/05/17 Range/Units 07:10 07:50 11:38 RBC (4.30-5.90) m/uL Hgb (13.0-17.5) gm/dL Hct (39.0-53.0) % Plt Count (150-450) k/uL Chloride (98-107) mmol/L POC Glucose (mg/dL) 112 H 115 H 162 H (75-99) mg/dL Calcium (8.4-10.2) mg/dL Magnesium (1.6-2.3) mg/dL Crossmatch Assessment and Plan Assessment: Impression: 1 acute lower GI bleeding, most likely secondary to his recent polypectomy. Being closely followed by gastroenterology, no plans to scope the patient today , patient will be started on full liquids, and his diet will be advanced. We' ll continue to monitor in the ICU for the next 24 hours. 2 acute anemia secondary to GI blood losses, patient received a total of 2 units of packed RBCs since admission. 3 history of multiple comorbidities including mild bronchial asthma presently stable, type 2 diabetes without complications, GERD with reflux, hypertension, osteoarthritis, irritable bowel syndrome, history of seizure disorder. And history of obstructive sleep apnea syndrome. And history of diabetic foot ulcer. Being followed at the wound care center. Recommendation: Continue to monitor in the ICU, for the next 24 hours, and if he remains stable will transfer out of the ICU tomorrow. Time with Patient: Less than 30
--- NOTE | 2017-12-05 12:40 | PN ---
PROGRESS NOTE DATE OF SERVICE: 12/05/2017 The patient is a 47-year-old pleasant white male admitted to the hospital post polypectomy, lower GI bleed, following a colonoscopy done 2 days ago. The patient had severe bleeding yesterday and he did not have any bleeding since 5 p.m. yesterday. He denies any abdominal pain, reports no nausea, vomiting. He did drop his hemoglobin to 7.4 g/dL and so far he received a total of 2 units of blood transfusion. He denies any nausea, vomiting. No other symptoms. PHYSICAL EXAMINATION: On physical examination, he appears comfortable, no apparent distress. Vital signs remy stable. Blood pressure is 120/59, pulse rate 69, temperature 98.8. HEENT examination unremarkable. Conjunctivae are pink. Sclerae anicteric. Oral cavity no lesions. NECK: No JVD or lymph node enlargement. Chest was clear to auscultation. HEART: Regular rate and rhythm. ABDOMEN: Soft. Bowel sounds are positive. No organomegaly. EXTREMITIES: No pedal edema. SKIN: No rashes. NEURO: Alert and oriented x3. No focal deficits. LABS: Labs from today WBC 4.9, hemoglobin 7.4, platelets 102. BUN and creatinine are normal. IMPRESSION: Acute postpolypectomy lower gastrointestinal bleed. The patient is status post colonoscopy [address] Evangelista and a 1 cm polyp was removed in the sigmoid colon. He had significant amount of bleeding yesterday, but for the last 18 hours did not have any further bleeding. Hemoglobin dropped to 7.4 g/dL. He received a total of 2 units of pRBC transfusion. RECOMMENDATIONS: 1. Advance to a full liquid diet. 2. No need for a colonoscopy today since the bleeding appears to have subsided. 3. CBC in 6 hours and if it remains stable, he can be transferred to the floor. 4. We will follow the patient closely during his hospital stay. Thank you for this consultation. MMODL / BRIANN: [id number] /
[2017-12-05 12:44] LABS: HCT 21.7 % (39.0-53.0); HGB 7.5 gm/dL (13.0-17.5); MCH 28.5 pg (25.0-35.0); MCHC 34.7 g/dL (31.0-37.0); MCV 82.1 fL (80.0-100.0); Mean Platelet Volume 7.8; Platelet Count 100 k/uL (150-450); Poikilocytosis Slight; RBC 2.64 m/uL (4.30-5.90); RDW 14.6 % (11.5-15.5)
[2017-12-05 14:58] LABS: Hemoglobin A1C 5.5 % (4.0-6.0)
[2017-12-05 17:23] LABS: Glucose,Whole Blood 141 mg/dL (75-99)
[2017-12-05 18:37] LABS: HCT 22.7 % (39.0-53.0); HGB 8.1 gm/dL (13.0-17.5); Hyperchromasia Slight; MCH 29.5 pg (25.0-35.0); MCHC 35.8 g/dL (31.0-37.0); MCV 82.5 fL (80.0-100.0); Platelet Count 106 k/uL (150-450); Poikilocytosis Slight; RBC 2.75 m/uL (4.30-5.90); RDW 14.7 % (11.5-15.5); WBC 5.9 k/uL (3.8-10.6)
[2017-12-05 20:18] LABS: Glucose,Whole Blood 165 mg/dL (75-99)
[2017-12-05] MEDS: INSULIN DETEMIR 100 UNIT/ML 10 ML VIAL SQ SCH (21:01)
[2017-12-05] MEDS: MORPHINE ORAL SOLN 10 MG/5 ML CUP PO PRN (21:09)
[2017-12-06 04:45] LABS: MCH 28.9 pg (25.0-35.0); MCV 82.6 fL (80.0-100.0); Platelet Count 100 k/uL (150-450); Poikilocytosis Slight; RBC 2.42 m/uL (4.30-5.90); RDW 15.1 % (11.5-15.5); WBC 4.6 k/uL (3.8-10.6)
[2017-12-06 04:53] LABS: Anion Gap 9 mmol/L; Blood Urea Nitrogen 7 mg/dL (9-20); Calcium 8.8 mg/dL (8.4-10.2); Carbon Dioxide 23 mmol/L (22-30); Chloride 109 mmol/L (98-107); Glucose 85 mg/dL (74-99); Potassium 3.7 mmol/L (3.5-5.1); Sodium 141 mmol/L (137-145)
[2017-12-06] MEDS ORDERED: MAGNESIUM CITRATE 296 ML BOTTLE PO ONE (07:15)
[2017-12-06 07:37] LABS: Glucose,Whole Blood 98 mg/dL (75-99)
[2017-12-06] MEDS: SODIUM CHLORIDE 0.9% 1,000 ML IV SCH ×3 (07:52→15:45)
[2017-12-06] MEDS: HYOSCYAMINE SULFATE 0.125 MG TAB PO SCH ×6 (07:54→23:23)
[2017-12-06] MEDS: PANTOPRAZOLE 40 MG/10 ML VIAL IV SCH (07:55)
[2017-12-06] MEDS: TAMSULOSIN 0.4 MG CAP.ER.24H PO SCH (07:55)
[2017-12-06] MEDS: DIVALPROEX 500 MG TABLET.DR PO SCH ×3 (07:55→21:17)
[2017-12-06] MEDS: INSULIN ASPART 100 UNIT/ML 1 ML 10 ML VIAL SQ SCH ×4 (07:55→21:20)
--- NOTE | 2017-12-06 09:41 | CDI ---
Last Revision, August 2017 Documentation Clarification Form Date: 12/06/17 0937 From: Adeola Perkins RN, CCDS Admit Date: 12/04/2017 11:29:00 AM Patient Name: Jude Graham Visit Number: [id number] ATTENTION: The Clinical Documentation Specialists (CDI) and [facility] Coding Staff appreciate your assistance in clarifying documentation. Please respond to the clarification below the line at the bottom and electronically sign. The CDI & [facility] Coding staff will review the response and follow-up if needed. Please note: Queries are made part of the Legal Health Record. If you have any questions, please contact the author of this message via ITS. Dr. Stiven Young A diagnosis of anemia lacks specificity to accurately reflect your patients severity of condition and clarification is needed. History/Risk Factors: EGD and colonoscopy day of admission [employer] w/ polypectomy, GERD, HTN, IBS Clinical indicators: 12/04 GI Consult: "He is presently receiving one unit of blood transfusion for hemoglobin of 8.9 and hemodynamically instability. The patient is much better, and hemodynamically very stable currently." 12/05 Pulmonary consult and Progress Notes: "2 acute anemia secondary to GI blood losses, patient received a total of 2 units of packed RBCs since admission. Acute lower GI bleeding and it was felt that the bleeding was most likely related to his recent polypectomy." Hemoglobin: 12.7/10/8.9/8.4/8.1/7.4/7.5/8.1/7 Hematocrit: 33.5/27.5/24.3/23.6/22.6/20.5/21.7/22.7/20 Treatment: TX: to ICU for active bleeding and hemodynamic instability 2 U PRBC's transfused 2L IVF Bolus In order to capture the severity of condition, please clarify the type of anemia and etiology if known: Acute blood loss anemia Acute on chronic blood loss anemia Iron deficiency anemia Drug induced anemia Nutritional anemia Unable to determine Other, please specify Please continue to document in your progress notes and discharge summary in order to capture severity of illness and risk of mortality. Include clinical findings that support your diagnosis. Acute blood loss anemia MTDD
[2017-12-06] MEDS: NA PHOS,M-B/NA PHOS,DI-BA 133 ML ENEMA RECTAL SCH ×2 (10:09→21:45)
[2017-12-06 12:14] LABS: Glucose,Whole Blood 100 mg/dL (75-99)
--- NOTE | 2017-12-06 12:44 | P.PN ---
Subjective Progress Note Date: 12/06/17 Principal diagnosis: Acute lower GI bleeding This is a 47-year-old white male with history of irritable bowel syndrome, underwent colonoscopy and polypectomy yesterday. However later in the evening, patient presents to the ER with recurrent episodes of Bright blood red per rectum. Patient was also complaining of lower abdominal cramps, no nausea no vomiting, no hematemesis. No diarrhea. No fever no chills. Patient was hemodynamically stable, and his hemoglobin was 12.7 at the time of evaluation in the ER. His coagulation profile was normal. And it was felt that the bleeding was most likely related to his recent polypectomy. Patient was not felt to be sick enough to be admitted to the ICU, I was notified about this patient from the ER physician, and we both felt that he is stable enough to be admitted to the floor since there was no active bleeding at the time. And his hemoglobin was 12.7. Patient was admitted to selective, apparently overnight the patient had more episodes of bright red blood per rectum, and this morning his hemoglobin was down to 8.9. It was 10.0 around 6 AM in the morning. And 12.7 late last night. Considering the steady drop in his hemoglobin, and considering the patient was getting more lightheaded, but not hypotensive, transferred to the ICU, and I was asked to see him on consultation. Upon my evaluation, the patient was noted to be a bit pale, and his blood pressure was 120/70. Heart rate was 110. Patient is about to receive a unit of packed RBCs , and I gave him a liter of fluid bolus. Patient is yet to be seen by gastroenterology to evaluate his GI bleeding which is felt to be lower GI in nature unless proven otherwise. Patient denies any headaches, no blurred vision , no dizziness, but he feels a bit lightheaded. Denies any hematemesis, no chest pain, no nausea no vomiting, Patient was reevaluated today on 12/05/2017, seems to be doing better today, although his hemoglobin is down to 7.4, and it was 8.1 yesterday. Clinically however there is no active bleeding, and he was supposed to undergo sigmoidoscopy today with possible cauterization, but considering the bleeding is inactive at present and the patient seems to be stable, Dr. Almazan decided to cancel plans for sigmoidoscopy today. Patient is hemodynamically stable. He received a total of 2 units of packed RBCs since admission. However his admitting hemoglobin was over 12.5, and today is 7.4 in spite of 2 units of packed RBCs in the last 2 days. Rest of the labs were noted to be unremarkable. Reevaluated today on 12/06/2017, patient is having recurrent episodes of bright red blood per rectum again, had few episodes last night. Hemoglobin this morning is down to 7.0, it was 8.1 yesterday. Patient received a total of 3 units of packed RBCs since admission. Today the patient is nothing by mouth, and he is undergoing proctosigmoidoscopy/colonoscopy. This would be done by Dr. Almazan. Clinically however the patient is feeling fine, asymptomatic except for his GI symptoms. Denies any hematemesis, denies any abdominal pain. No chest pain. Objective - Vital Signs Vital signs: Vital Signs Temp 98.1 F 12/06/17 12:00 Pulse 75 12/06/17 12:00 Resp 26 H 12/06/17 12:00 BP 115/64 12/06/17 12:00 Pulse Ox 94 L 12/06/17 12:00 Intake & Output 12/05/17 12/06/17 12/06/17 18:59 06:59 18:59 Intake Total 1300 1200 310 Output Total 1010 1500 200 Balance 290 -300 110 Weight 91.2 kg Intake: IV 900 1200 Sodium Chloride 0.9% 1, 900 1200 000 ml @ 100 mls/hr IV . Q10H [facility] Rx#:[id number] Intake, IV Titration 400 Amount Magnesium Sulfate-D5w Pmx 200 1 gm In Dextrose/Water 1 100ml.bag @ 100 mls/hr IVPB Q1H [facility] Rx#: [id number] Potassium Chloride 10 meq 200 In Water For Injection 1 100ml.bag @ 100 mls/hr IVPB Q1H [facility] Rx#: [id number] Blood Product 0 310 Rc As-1 Unit 0 310 [id number] Output: Urine 1010 1500 Stool 200 Other: Voiding Method Indwelling Catheter Urinal Urinal - Exam Physical Exam: Revealed a 47-year-old white male in no form of respiratory distress. Remains slightly pale Head: Atraumatic, normocephalic. Eyes: PERRLA, EOMI, no icterus. HEENT: Moist mucous membranes noted. [Neck is supple.] [No neck masses.] [No thyromegaly.] [No JVD.] Chest: [Clear throughout, no crackles, no rhonchi, no wheezes.] Cardiac Exam: [Normal S1 and S2, no S3 gallop, no murmur.] Abdomen: [Soft, nontender, no megaly, no rebound, no guarding, normal bowel sounds.] Extremities: [No clubbing, no edema, no cyanosis. Left lower extremity is in a cast, had previous history of diabetic foot ulcer.] Neurological Exam: [No focal neurologic deficit.] Psychiatric: Normal mood affect and mental status examination. Lymphatics: No lymphadenopathy. - Labs CBC & Chem 7: 12/06/17 04:11 12/06/17 04:11 Labs: Abnormal Lab Results - Last 24 Hours (Table) 12/04/17 12/05/17 12/05/17 Range/Units 02:58 12:01 17:15 RBC 2.64 L (4.30-5.90) m/uL Hgb 7.5 L (13.0-17.5) gm/dL Hct 21.7 L (39.0-53.0) % Plt Count 100 L (150-450) k/uL Chloride (98-107) mmol/L BUN (9-20) mg/dL POC Glucose (mg/dL) 141 H (75-99) mg/dL Crossmatch See Detail 12/05/17 12/05/17 12/06/17 Range/Units 18:26 20:15 04:11 RBC 2.75 L 2.42 L (4.30-5.90) m/uL Hgb 8.1 L 7.0 L* (13.0-17.5) gm/dL Hct 22.7 L 20.0 L* (39.0-53.0) % Plt Count 106 L 100 L (150-450) k/uL Chloride (98-107) mmol/L BUN (9-20) mg/dL POC Glucose (mg/dL) 165 H (75-99) mg/dL Crossmatch 12/06/17 12/06/17 Range/Units 04:11 12:13 RBC (4.30-5.90) m/uL Hgb (13.0-17.5) gm/dL Hct (39.0-53.0) % Plt Count (150-450) k/uL Chloride 109 H (98-107) mmol/L BUN 7 L (9-20) mg/dL POC Glucose (mg/dL) 100 H (75-99) mg/dL Crossmatch Assessment and Plan Assessment: Impression: 1 acute lower GI bleeding, most likely secondary to his recent polypectomy. Patient received a total of 3 units of packed RBCs since admission, undergoing sigmoidoscopy/colonoscopy today. 2 acute anemia secondary to GI blood losses, patient received a total of 3 units of packed RBCs since admission. 3 history of multiple comorbidities including mild bronchial asthma presently stable, type 2 diabetes without complications, GERD with reflux, hypertension, osteoarthritis, irritable bowel syndrome, history of seizure disorder. And history of obstructive sleep apnea syndrome. And history of diabetic foot ulcer. Being followed at the wound care center. Recommendation: Continue to monitor in the ICU, based on the findings of the colonoscopy/sigmoidoscopy, we'll decide whether to keep the patient in the ICR transfer to a regular medical floor. Os likely will keep him for another 24 hours. Time with Patient: Less than 30
--- NOTE | 2017-12-06 13:18 | P.PN ---
Subjective 47-year-old admitted after lower GI bleed posterior polypectomy. His regimen bleed improved patient hemoglobin is on 0.4 patient will be transferred out of ICU after next hemoglobin check. Patient has a left leg cast for which she will follow with the vascular surgery as an outpatient. Denied any lightheadedness today. Patient is feeling well. 12/06/2017 Patient still had couple episodes of GI bleed patient is going for repeat colonoscopy today hemoglobin dropped to 7 again and received monitor blood transfusion. Constitutional: Denied any fatigue denied any fever. Cardio vascular: denied any chest pain, palpitations Gastrointestinal denied any nausea vomiting Pulmonary: Denied any shortness of breath cough Neurologic denied any new focal deficits Objective - Vital Signs Vital signs: Vital Signs Temp 98.1 F 12/06/17 12:00 Pulse 75 12/06/17 12:00 Resp 26 H 12/06/17 12:00 BP 115/64 12/06/17 12:00 Pulse Ox 94 L 12/06/17 12:00 Intake & Output 12/05/17 12/06/17 12/06/17 18:59 06:59 18:59 Intake Total 1300 1200 310 Output Total 1010 1500 200 Balance 290 -300 110 Weight 91.2 kg Intake: IV 900 1200 Sodium Chloride 0.9% 1, 900 1200 000 ml @ 100 mls/hr IV . Q10H [facility] Rx#:[id number] Intake, IV Titration 400 Amount Magnesium Sulfate-D5w Pmx 200 1 gm In Dextrose/Water 1 100ml.bag @ 100 mls/hr IVPB Q1H [facility] Rx#: [id number] Potassium Chloride 10 meq 200 In Water For Injection 1 100ml.bag @ 100 mls/hr IVPB Q1H [facility] Rx#: [id number] Blood Product 0 310 Rc As-1 Unit 0 310 [id number] Output: Urine 1010 1500 Stool 200 Other: Voiding Method Indwelling Catheter Urinal Urinal - Exam PHYSICAL EXAMINATION: GENERAL: The patient is alert and oriented x3, not in any acute distress. Well developed, well nourished. HEENT: Pupils are round and equally reacting to light. EOMI. No scleral icterus. Does have conjunctival pallor. Normocephalic, atraumatic. No pharyngeal erythema. No thyromegaly. CARDIOVASCULAR: S1 and S2 present. No murmurs, rubs, or gallops. PULMONARY: Chest is clear to auscultation, no wheezing or crackles. ABDOMEN: Soft, nontender, nondistended, normoactive bowel sounds. No palpable organomegaly. MUSCULOSKELETAL: No joint swelling or deformity. EXTREMITIES: No cyanosis, clubbing, or pedal edema. NEUROLOGICAL: Gross neurological examination did not reveal any focal deficits. SKIN: No rashes. - Labs CBC & Chem 7: 12/06/17 04:11 12/06/17 04:11 Labs: Abnormal Lab Results - Last 24 Hours (Table) 12/04/17 12/05/17 12/05/17 Range/Units 02:58 17:15 18:26 RBC 2.75 L (4.30-5.90) m/uL Hgb 8.1 L (13.0-17.5) gm/dL Hct 22.7 L (39.0-53.0) % Plt Count 106 L (150-450) k/uL Chloride (98-107) mmol/L BUN (9-20) mg/dL POC Glucose (mg/dL) 141 H (75-99) mg/dL Crossmatch See Detail 12/05/17 12/06/17 12/06/17 Range/Units 20:15 04:11 04:11 RBC 2.42 L (4.30-5.90) m/uL Hgb 7.0 L* (13.0-17.5) gm/dL Hct 20.0 L* (39.0-53.0) % Plt Count 100 L (150-450) k/uL Chloride 109 H (98-107) mmol/L BUN 7 L (9-20) mg/dL POC Glucose (mg/dL) 165 H (75-99) mg/dL Crossmatch 12/06/17 Range/Units 12:13 RBC (4.30-5.90) m/uL Hgb (13.0-17.5) gm/dL Hct (39.0-53.0) % Plt Count (150-450) k/uL Chloride (98-107) mmol/L BUN (9-20) mg/dL POC Glucose (mg/dL) 100 H (75-99) mg/dL Crossmatch Assessment and Plan Plan: -Lower GI bleed and acute GI bleed secondary to lower GI bleed: Status post polyp removal. Patient is going for repeat colonoscopy today Type 2 diabetes mellitus Insulin patient blood sugars are well controlled with half a dose of long-acting insulin which will be continued at this time. -diabetic ulcer on the lower limb management as mentioned above was -Seizure disorder: Patient will be resumed on his home medications -Hyperlipidemia -hypertension -Sleep apnea obesity patient will continue with his CPAP machine -
[2017-12-06] MEDS ORDERED: PROPOFOL 10 MG/ML 20 ML VIAL IV ONE (13:25)
[2017-12-06] MEDS ORDERED: SODIUM CHLORIDE 0.9% 500 ML IV ONE (13:53)
--- NOTE | 2017-12-06 13:54 | P.PCN ---
Date of Procedure: 12/06/17 Procedure(s) Performed: BRIEF HISTORY: Patient is a 47-year-old pleasant male, admitted to the hospital with post polypectomy lower GI bleed. He underwent a colonoscopy electively on Saturday morning and that evening had significant lower GI bleed. He was admitted to the intensive care unit and received total of 4 units of blood transfusion. Last hemoglobin was 8 g/dL. He continued to have some bright red blood per rectum through the night and hence he scheduled for eczema sigmoidoscopy today. PROCEDURE PERFORMED: Flexible sigmoidoscopy with Endo Clip placement PREOPERATIVE DIAGNOSIS: [Acute post polyp rectum and lower GI bleed IV sedation per Anesthesia. PROCEDURE: After informed consent was obtained, the patient, was brought into the endoscopy unit. IV sedation was administered by Anesthesia under continuous monitoring. Digital rectal examination was normal. Initially the Olympus CF- 160 flexible video colonoscope was then inserted in the rectum, gradually advanced into the transverse colon. Careful examination was performed as the scope was gradually being withdrawn. There was no active bleeding noted. The transverse colon, descending colon, sigmoid colon, and rectum appeared normal. in the distal descending colon approximately 60 cm from the anal verge there was an ulcerated area with a pigmented spot noted at the site of recent polypectomy. No active bleeding identified. At this time 2 endoclips were placed at the polypectomy site to prevent further bleeding. Retroflexion was performed in the rectum and no lesions were seen. The patient tolerated the procedure well. IMPRESSION: Superficial ulcerated area with a pigmented spot noted at the site of recent polypectomy in the descending colon, 60 cm from the anal verge status post Endo Clip placement as described above. No active bleeding seen. RECOMMENDATIONS: Findings of this examination were discussed with the patient. He can be transferred to regular floor and diet will be advanced as tolerated. Repeat CBC in the morning..
[2017-12-06 17:51] LABS: Glucose,Whole Blood 126 mg/dL (75-99)
[2017-12-06] MEDS: MORPHINE ORAL SOLN 10 MG/5 ML CUP PO PRN (18:43)
[2017-12-06 19:51] LABS: Glucose,Whole Blood 141 mg/dL (75-99)
[2017-12-06] MEDS: INSULIN DETEMIR 100 UNIT/ML 10 ML VIAL SQ SCH (21:10)
[2017-12-06] MEDS: diphenhydrAMINE 25 MG CAP PO PRN (21:19)
[2017-12-06 21:22] LABS: Glucose,Whole Blood 154 mg/dL (75-99)
[2017-12-06] MEDS: ARTIFICIAL TEARS-HYPROMELLOSE DROPS 15 ML BTL BOTH EYES PRN (22:39)
[2017-12-07] MEDS: SODIUM CHLORIDE 0.9% 1,000 ML IV SCH ×2 (01:53→11:32)
[2017-12-07] MEDS: HYOSCYAMINE SULFATE 0.125 MG TAB PO SCH ×2 (04:01→09:52)
[2017-12-07 04:04] VITALS: PULSE 85
[2017-12-07] MEDS: diphenhydrAMINE 25 MG CAP PO PRN (04:24)
[2017-12-07 06:08] LABS: Glucose,Whole Blood 118 mg/dL (75-99)
[2017-12-07] MEDS: INSULIN ASPART 100 UNIT/ML 1 ML 10 ML VIAL SQ SCH ×2 (06:30→12:39)
[2017-12-07 06:37] LABS: HCT 22.3 % (39.0-53.0); HGB 7.9 gm/dL (13.0-17.5); Hyperchromasia Slight; MCHC 35.4 g/dL (31.0-37.0); Mean Platelet Volume 7.7; Platelet Count 102 k/uL (150-450); Poikilocytosis Slight; RBC 2.72 m/uL (4.30-5.90); RDW 15.3 % (11.5-15.5); WBC 4.4 k/uL (3.8-10.6)
[2017-12-07 07:08] LABS: Anion Gap 11 mmol/L; Blood Urea Nitrogen 4 mg/dL (9-20); Calcium 8.9 mg/dL (8.4-10.2); Carbon Dioxide 25 mmol/L (22-30); Chloride 106 mmol/L (98-107); Glucose 99 mg/dL (74-99); Potassium 3.4 mmol/L (3.5-5.1); Sodium 142 mmol/L (137-145)
[2017-12-07] MEDS: TAMSULOSIN 0.4 MG CAP.ER.24H PO SCH (09:52)
[2017-12-07] MEDS: DIVALPROEX 500 MG TABLET.DR PO SCH (09:52)
[2017-12-07] MEDS: PANTOPRAZOLE 40 MG/10 ML VIAL IV SCH (09:52)
[2017-12-07] MEDS: MORPHINE ORAL SOLN 10 MG/5 ML CUP PO PRN (10:13)
[2017-12-07] MEDS: NA PHOS,M-B/NA PHOS,DI-BA 133 ML ENEMA RECTAL SCH (10:14)
[2017-12-07] MEDS ORDERED: POTASSIUM CHLORIDE ER 20 MEQ TAB.ER PO STA (11:04)
--- NOTE | 2017-12-07 11:30 | P.PN ---
Subjective Progress Note Date: 12/07/17 Principal diagnosis: Acute lower GI bleeding. This is a 47-year-old white male with history of irritable bowel syndrome, underwent colonoscopy and polypectomy yesterday. However later in the evening, patient presents to the ER with recurrent episodes of Bright blood red per rectum. Patient was also complaining of lower abdominal cramps, no nausea no vomiting, no hematemesis. No diarrhea. No fever no chills. Patient was hemodynamically stable, and his hemoglobin was 12.7 at the time of evaluation in the ER. His coagulation profile was normal. And it was felt that the bleeding was most likely related to his recent polypectomy. Patient was not felt to be sick enough to be admitted to the ICU, I was notified about this patient from the ER physician, and we both felt that he is stable enough to be admitted to the floor since there was no active bleeding at the time. And his hemoglobin was 12.7. Patient was admitted to selective, apparently overnight the patient had more episodes of bright red blood per rectum, and this morning his hemoglobin was down to 8.9. It was 10.0 around 6 AM in the morning. And 12.7 late last night. Considering the steady drop in his hemoglobin, and considering the patient was getting more lightheaded, but not hypotensive, transferred to the ICU, and I was asked to see him on consultation. Upon my evaluation, the patient was noted to be a bit pale, and his blood pressure was 120/70. Heart rate was 110. Patient is about to receive a unit of packed RBCs , and I gave him a liter of fluid bolus. Patient is yet to be seen by gastroenterology to evaluate his GI bleeding which is felt to be lower GI in nature unless proven otherwise. Patient denies any headaches, no blurred vision , no dizziness, but he feels a bit lightheaded. Denies any hematemesis, no chest pain, no nausea no vomiting, Patient was reevaluated today on 12/05/2017, seems to be doing better today, although his hemoglobin is down to 7.4, and it was 8.1 yesterday. Clinically however there is no active bleeding, and he was supposed to undergo sigmoidoscopy today with possible cauterization, but considering the bleeding is inactive at present and the patient seems to be stable, Dr. Almazan decided to cancel plans for sigmoidoscopy today. Patient is hemodynamically stable. He received a total of 2 units of packed RBCs since admission. However his admitting hemoglobin was over 12.5, and today is 7.4 in spite of 2 units of packed RBCs in the last 2 days. Rest of the labs were noted to be unremarkable. Reevaluated today on 12/06/2017, patient is having recurrent episodes of bright red blood per rectum again, had few episodes last night. Hemoglobin this morning is down to 7.0, it was 8.1 yesterday. Patient received a total of 3 units of packed RBCs since admission. Today the patient is nothing by mouth, and he is undergoing proctosigmoidoscopy/colonoscopy. This would be done by Dr. Almazan. Clinically however the patient is feeling fine, asymptomatic except for his GI symptoms. Denies any hematemesis, denies any abdominal pain. No chest pain. The patient is seen again today 12/07/2017 in follow-up on the selective care unit. He is awake and alert in no acute distress. No pulmonary complaints. He is maintaining good O2 saturations in the mid 90s on room air. His been afebrile. Hemodynamically stable. He did undergo flexible sigmoidoscopy with Endo Clip placement yesterday. No further evidence of GI bleeding. Current hemoglobin 7.9. He is status post 3 units of packed red blood cells. He remains on IV Protonix. Objective - Vital Signs Vital signs: Vital Signs Temp 98.2 F 12/07/17 08:00 Pulse 85 12/07/17 08:00 Resp 17 12/07/17 08:00 BP 139/64 12/07/17 08:00 Pulse Ox 95 12/07/17 08:00 Intake & Output 12/06/17 12/07/17 12/07/17 18:59 06:59 18:59 Intake Total 1510 500 Output Total 1000 Balance 510 500 Weight 108.6 kg Intake: IV 1200 Sodium Chloride 0.9% 1, 800 000 ml @ 100 mls/hr IV . Q10H [facility] Rx#:[id number] Oral 500 Blood Product 310 Rc As-1 Unit 310 [id number] Output: Urine 600 Stool 400 Other: Voiding Method Urinal Urinal Urinal # Voids 1 # Bowel Movements 1 - Exam GENERAL EXAM: Alert, comfortable in no apparent distress. HEAD: Normocephalic. EYES: Normal reaction of pupils, equal size. NOSE: Clear with pink turbinates. THROAT: No erythema or exudates. NECK: No masses, no JVD. CHEST: No chest wall deformity. LUNGS: Equal air entry with no crackles, wheeze, rhonchi or dullness. CVS: S1 and S2 normal with no audible murmur, regular rhythm. ABDOMEN: No hepatosplenomegaly, normal bowel sounds, no guarding or rigidity. SPINE: No scoliosis or deformity SKIN: No rashes CENTRAL NERVOUS SYSTEM: No focal deficits, tone is normal in all 4 extremities. EXTREMITIES: Cast to the right lower extremity. There is no peripheral edema. No clubbing, no cyanosis. Peripheral pulses are intact. - Labs CBC & Chem 7: 12/07/17 06:01 12/07/17 06:01 Labs: Abnormal Lab Results - Last 24 Hours (Table) 12/06/17 12/06/17 12/06/17 Range/Units 12:13 17:49 19:49 RBC (4.30-5.90) m/uL Hgb (13.0-17.5) gm/dL Hct (39.0-53.0) % Plt Count (150-450) k/uL Potassium (3.5-5.1) mmol/L BUN (9-20) mg/dL POC Glucose (mg/dL) 100 H 126 H 141 H (75-99) mg/dL 12/06/17 12/07/17 12/07/17 Range/Units 21:07 06:01 06:01 RBC 2.72 L (4.30-5.90) m/uL Hgb 7.9 L (13.0-17.5) gm/dL Hct 22.3 L (39.0-53.0) % Plt Count 102 L (150-450) k/uL Potassium 3.4 L (3.5-5.1) mmol/L BUN 4 L (9-20) mg/dL POC Glucose (mg/dL) 154 H (75-99) mg/dL 12/07/17 Range/Units 06:06 RBC (4.30-5.90) m/uL Hgb (13.0-17.5) gm/dL Hct (39.0-53.0) % Plt Count (150-450) k/uL Potassium (3.5-5.1) mmol/L BUN (9-20) mg/dL POC Glucose (mg/dL) 118 H (75-99) mg/dL Assessment and Plan Assessment: Impression: #1 Acute lower gastrointestinal bleeding secondary to recent polypectomy. Status post flexible sigmoidoscopy with Endo Clip placement. #2 Acute anemia secondary to above. Status post 3 units packed red blood cell transfusion. Current hemoglobin 7.9. #3 Diabetes mellitus, type II. #4 Diabetic ulcer of the left lower extremity being treated in the [facility]. #5 Obstructive sleep apnea. #6 Irritable bowel syndrome. #7 Hypertension. #8 Gastroesophageal reflux disease. #9 History of arthritis. Plan: The patient was seen and evaluated by Dr. Lang. He is stable from the pulmonary and critical care standpoint. No further acute bleeding. Status post sigmoidoscopy with Endo Clip placement. We'll follow the patient on as- needed basis. I, the cosigning physician, performed a history & physical examination of the patient. Lungs sounds are clear. Maintaining good O2 saturations in the 90s on room air. I discussed the assessment and plan of care with my nurse practitioner, Crystal Arreola. I attest to the above note as dictated by her.
[2017-12-07 11:37] VITALS: BP 136/65; RESP 18; TEMP 98.7
[2017-12-07 11:56] LABS: Glucose,Whole Blood 201 mg/dL (75-99)
--- NOTE | 2017-12-07 11:57 | PN ---
PROGRESS NOTE DATE OF SERVICE: December 07, 2017 Patient is a 47-year-old pleasant white male admitted to the hospital with acute postpolypectomy lower GI bleed following a colonoscopy which was done 4 days ago. He underwent a flexible sigmoidoscopy yesterday and underwent Endoclip placement at the polypectomy site. The patient is doing better. He complains of constipation and abdominal pain. He reports no nausea, vomiting. PHYSICAL EXAMINATION: Appears comfortable. No apparent distress. Vital signs stable. Blood pressure 137/58, pulse 88, temperature 98.1. HEENT examination unremarkable. Conjunctivae pink. Sclerae anicteric. Oral cavity no lesions. Neck: No jugular venous distention or lymph node enlargement. The chest was clear to auscultation. HEART: Regular rate and rhythm. ABDOMEN: Soft. Bowel sounds are positive. No organomegaly. Extremities: No pedal edema. Skin no rashes. NEUROLOGIC: Alert and oriented x3. No focal deficits. LAB: From this morning, hemoglobin 7.9, WBC 4.4, and platelets are 102. IMPRESSION: Acute post polypectomy lower gastrointestinal bleed, status post flexible sigmoidoscopy with Endoclip placement yesterday. The patient had no further bleeding. Hemoglobin stable at 7.9 g/dL. RECOMMENDATIONS: 1. Advance to regular diet. 2. He can be discharged home today with an outpatient follow up with Dr. Evangelista in 2-3 weeks discomfort. Thank you. ISAURA / OCTAVIA: [id number] /
--- NOTE | 2017-12-07 12:24 | P.DS ---
Providers Date of admission: 12/04/17 11:29 Attending physician: Pino Mckeon Consults: 12/04/17 03:37 Consult Physician Urgent Consulting Provider: Adams Evangelista Consult Reason/Comments: GI bleed s/p colonoscopy Do you want consulting provider notified?: Yes 12/04/17 10:01 Consult Physician Stat Consulting Provider: Jocelyn Lang Reason/Comments: icu management Do you want consulting provider notified?: Yes Primary care physician: Brandon Mcpherson Hospital Course: 47-year-old admitted after lower GI bleed posterior polypectomy. His regimen bleed improved patient hemoglobin is on 0.4 patient will be transferred out of ICU after next hemoglobin check. Patient has a left leg cast for which she will follow with the vascular surgery as an outpatient. Denied any lightheadedness today. Patient is feeling well. 12/06/2017 Patient still had couple episodes of GI bleed patient is going for repeat colonoscopy today hemoglobin dropped to 7 again and received monitor blood transfusion. 12/07/2017 Patient underwent culdoscopy and clipping of the polyp sites and patient doesn' t have any bleeding anymore patient will be discharged if cleared by gastroneurology. We did cut down the dose of long-acting insulin to 50 units and his blood sugars are well controlled with that PHYSICAL EXAMINATION: GENERAL: The patient is alert and oriented x3, not in any acute distress. Well developed, well nourished. HEENT: Pupils are round and equally reacting to light. EOMI. No scleral icterus. Does have conjunctival pallor. Normocephalic, atraumatic. No pharyngeal erythema. No thyromegaly. CARDIOVASCULAR: S1 and S2 present. No murmurs, rubs, or gallops. PULMONARY: Chest is clear to auscultation, no wheezing or crackles. ABDOMEN: Soft, nontender, nondistended, normoactive bowel sounds. No palpable organomegaly. MUSCULOSKELETAL: No joint swelling or deformity. EXTREMITIES: No cyanosis, clubbing, or pedal edema. NEUROLOGICAL: Gross neurological examination did not reveal any focal deficits. SKIN: No rashes. Assessment and Plan Plan: -Lower GI bleed and acute GI bleed secondary to lower GI bleed: Status post polyp removal. Repeat colonoscopy was done yesterday and clipping of the polypectomy sites no more GI bleed after that Type 2 diabetes mellitus -diabetic ulcer on the lower limb management as mentioned above was -Seizure disorder: Patient will be resumed on his home medications -Hyperlipidemia -hypertension -Sleep apnea obesity patient will continue with his CPAP machine - Patient Condition at Discharge: Stable Plan - Discharge Summary Discharge Rx Participant: Yes New Discharge Prescriptions: Continue Lisinopril [Zestril] 10 mg PO QAM INSULIN LISPRO (HumaLOG) [humaLOG] See Protocol SQ AC-TID Divalproex Sodium [Depakote] 500 mg PO TID traZODone HCL 50 mg PO HS Cetirizine HCl [Zyrtec] 10 mg PO DAILY Simethicone [Gas-X] 125 mg PO QID #10 capsule Hyoscyamine Sulfate [Levsin] 0.125 mg PO Q4H Omeprazole 20 mg PO BID Alfuzosin HCl [Alfuzosin HCl ER] 10 mg PO DAILY Polyethylene Glycol 3350 [Miralax] 17 gm PO DAILY Changed Insulin Glargine [Lantus] 45 unit SQ HS #0 Discontinued diphenhydrAMINE HCL [Diphenhydramine HCl] 25 mg PO TID PRN PRN Reason: ITCHING SKIN Discharge Medication List Lisinopril [Zestril] 10 mg PO QAM 06/06/14 [History] INSULIN LISPRO (HumaLOG) [humaLOG] See Protocol SQ AC-TID 08/16/15 [History] Divalproex Sodium [Depakote] 500 mg PO TID 01/10/17 [History] traZODone HCL 50 mg PO HS 11/08/17 [History] Cetirizine HCl [Zyrtec] 10 mg PO DAILY 11/17/17 [History] Simethicone [Gas-X] 125 mg PO QID #10 capsule 11/27/17 [Rx] Hyoscyamine Sulfate [Levsin] 0.125 mg PO Q4H 11/29/17 [History] Omeprazole 20 mg PO BID 11/30/17 [History] Alfuzosin HCl [Alfuzosin HCl ER] 10 mg PO DAILY 12/04/17 [History] Polyethylene Glycol 3350 [Miralax] 17 gm PO DAILY 12/04/17 [History] Insulin Glargine [Lantus] 45 unit SQ HS #0 12/07/17 [Rx] Follow up Appointment(s)/Referral(s): Brandon Mcpherson MD [Primary Care Provider] - 1-2 days
== END 2017-12-07 16:51 | disposition home or self-care (01) | DRG 920 ==
LOC: EC 02:31 → 6SEL 03:18 → OBSVTOIN 11:29 → 6ICU 11:48 → 6SEL 12-06 20:43
PROVIDERS: ADMIT Hospitalist; ATTEND Hospitalist
PROC: 30233N1 Transfusion of Nonautologous Red Blood Cells into Peripheral Vein, Percutaneous Approach (ICD-10-PCS; principal; 2017-12-04)
PROC: 0W3P8ZZ Control Bleeding in Gastrointestinal Tract, Via Natural or Artificial Opening Endoscopic (ICD-10-PCS; 2017-12-06)
DX: K91.840 Postprocedural hemorrhage of a digestive system organ or structure following a digestive system procedure (principal); K63.3 Ulcer of intestine; E11.621 Type 2 diabetes mellitus with foot ulcer; F20.9 Schizophrenia, unspecified; D62 Acute posthemorrhagic anemia; D12.5 Benign neoplasm of sigmoid colon; E66.9 Obesity, unspecified; E78.5 Hyperlipidemia, unspecified; F12.90 Cannabis use, unspecified, uncomplicated; L97.529 Non-pressure chronic ulcer of other part of left foot with unspecified severity; F17.210 Nicotine dependence, cigarettes, uncomplicated; F32.9 Major depressive disorder, single episode, unspecified; F90.9 Attention-deficit hyperactivity disorder, unspecified type; G40.909 Epilepsy, unspecified, not intractable, without status epilepticus; G47.33 Obstructive sleep apnea (adult) (pediatric); I10 Essential (primary) hypertension; J45.30 Mild persistent asthma, uncomplicated; K21.9 Gastro-esophageal reflux disease without esophagitis; M41.9 Scoliosis, unspecified; M19.90 Unspecified osteoarthritis, unspecified site; G89.29 Other chronic pain; M48.00 Spinal stenosis, site unspecified; M51.36 Other intervertebral disc degeneration, lumbar region; K58.0 Irritable bowel syndrome with diarrhea; Z82.49 Family history of ischemic heart disease and other diseases of the circulatory system; Z88.0 Allergy status to penicillin; Z88.8 Allergy status to other drugs, medicaments and biological substances; Z68.34 Body mass index [BMI] 34.0-34.9, adult; Y83.8 Other surgical procedures as the cause of abnormal reaction of the patient, or of later complication, without mention of misadventure at the time of the procedure; Z79.4 Long term (current) use of insulin; Z79.899 Other long term (current) drug therapy; K58.1 Irritable bowel syndrome with constipation
CPT/HCPCS: 36415; 45334; 51798; 80048; 80053; 81001; 82550; 82553; 83036; 83735; 84100; 84484; 85025; 85027; 85610; 85730; 86850; 86900; 86901; 86920; 87086; 96361; 96374; 99284

== ENCOUNTER 2017-12-10 10:08 | Emergency (ER) | payer MEDICARE, OTHER ==
[2017-12-10 10:25] VITALS: RESP 18
[2017-12-10] MEDS ORDERED: SODIUM CHLORIDE 0.9% 500 ML IV STA (10:37)
--- NOTE | 2017-12-10 10:41 | ED ---
General Adult HPI - General Chief complaint: Weakness Stated complaint: Weakness, Low Hemoglobin Time Seen by Provider: 12/10/17 10:10 Source: patient, RN notes reviewed Mode of arrival: ambulatory Limitations: no limitations - History of Present Illness Initial comments: This is a 47-year-old male who presents emergency Department complaining of generalized weakness. Patient states he was in the hospital recently for GI bleed which she had cauterized. Patient states he was discharged yesterday. Patient states she also had cystitis while in the hospital. Patient states he still having a little bit of suprapubic pain occasionally. Patient states his weakness is generalized is no focal deficit. Patient denies any shortness of breath difficult breathing chest pain or palpitations. Patient denies any lightheadedness dizziness or near syncopal episode. Patient denies any other abdominal pain besides a slight suprapubic pain. Patient denies any lower extremity swelling. Patient states she's not having any rectal bleeding any more. Patient denies diarrhea. - Related Data Home Medications Medication Instructions Recorded Confirmed Lisinopril [Zestril] 10 mg PO QAM 06/06/14 12/10/17 INSULIN LISPRO (HumaLOG) [humaLOG] See Protocol SQ AC-TID 08/16/15 12/10/17 Divalproex Sodium [Depakote] 500 mg PO TID 01/10/17 12/10/17 traZODone HCL 50 mg PO HS 11/08/17 12/10/17 Cetirizine HCl [Zyrtec] 10 mg PO DAILY 11/17/17 12/10/17 Hyoscyamine Sulfate [Levsin] 0.125 mg PO Q4H 11/29/17 12/10/17 Omeprazole 20 mg PO BID 11/30/17 12/10/17 Alfuzosin HCl [Alfuzosin HCl ER] 10 mg PO DAILY 12/04/17 12/10/17 Polyethylene Glycol 3350 [Miralax] 17 gm PO DAILY 12/04/17 12/10/17 Ferrous Fumarate/Ascorbic Acid 1 tab PO DAILY 12/10/17 12/10/17 [Doris-Sequels 65-25 mg Caplet] Previous Rx's Medication Instructions Recorded Simethicone [Gas-X] 125 mg PO QID #10 capsule 11/27/17 Insulin Glargine [Lantus] 45 unit SQ HS #0 12/07/17 Allergies Allergy/AdvReac Type Severity Reaction Status Date / Time bisacodyl Allergy dizziness Verified 12/10/17 10:41 [From Dulcolax (bisacodyl)] gabapentin Allergy seizures Verified 12/10/17 10:41 lactulose Allergy Rash/Hives Verified 12/10/17 10:41 Penicillins Allergy Unknown Verified 12/10/17 10:41 Childhood clozapine [From Clozaril] AdvReac Severe Aggression Verified 12/10/17 10:41 Review of Systems ROS Statement: Those systems with pertinent positive or pertinent negative responses have been documented in the HPI. ROS Other: All systems not noted in ROS Statement are negative. Past Medical History Past Medical History: Asthma, Diabetes Mellitus, GERD/Reflux, Hypertension, Osteoarthritis (OA), Seizure Disorder, Skin Disorder, Sleep Apnea/CPAP/BIPAP Additional Past Medical History / Comment(s): Abd pain,states "poss UTI-sees Dr Oriana Mcpherson on 11-29-17 for appt-and recent admission to [facility] for heart problems", LAST SEIZURE 28 YRS AGO. chronic back pain. DOES NOT USE CPAP. SPINAL STENOSIS, DDD IN BACK, SCOLIOSIS, IBS, psoriasis, frequent urination, chronic diarrhea/ constipation issues History of Any Multi-Drug Resistant Organisms: None Reported Past Surgical History: Cholecystectomy, Heart Catheterization, Tonsillectomy Additional Past Surgical History / Comment(s): PAIN PROCEDURES, colonscopy with polyp removal 12/03/17 Past Anesthesia/Blood Transfusion Reactions: Motion Sickness Past Psychological History: ADD/ADHD, Schizophrenia, Depression, Schizophrenia Smoking Status: Current some day smoker Past Alcohol Use History: None Reported Past Drug Use History: Marijuana - Past Family History Father Family Medical History: Unable to Obtain Additional Family Medical History / Comment(s): Father left home when pt was 5 yrs old. Mother Family Medical History: No Reported History Additional Family Medical History / Comment(s): Mother at age 55yrs of [place]. General Exam - General Exam Comments Initial Comments: GENERAL: Patient is well-developed and well-nourished. Patient is nontoxic and well- hydrated and is in mild distress. ENT: Neck is soft and supple. No significant lymphadenopathy is noted. Oropharynx is clear. Moist mucous membranes. Neck has full range of motion without eliciting any pain. EYES: The sclera were anicteric and conjunctiva were pink and moist. Extraocular movements were intact and pupils were equal round and reactive to light. Eyelids were unremarkable. PULMONARY: Unlabored respirations. Good breath sounds bilaterally. No audible rales rhonchi or wheezing was noted. CARDIOVASCULAR: There is a regular rate and rhythm without any murmurs gallops or rubs. ABDOMEN: Soft and nontender with normal bowel sounds. SKIN: Patient's skin is pale NEUROLOGIC: Patient is alert and oriented x3. Cranial nerves II through XII are grossly intact. Motor and sensory are also intact. Normal speech, volume and content. Symmetrical smile. MUSCULOSKELETAL: Normal extremities with adequate strength and full range of motion. LYMPHATICS: No significant lymphadenopathy is noted PSYCHIATRIC: Normal psychiatric evaluation. Limitations: no limitations Course Vital Signs 12/10/17 10:24 Temperature 98.4 F Pulse Rate 85 Respiratory 18 Rate Blood Pressure 124/81 O2 Sat by Pulse 98 Oximetry Medical Decision Making - Lab Data Result diagrams: 12/10/17 10:40 12/10/17 10:40 Lab Results 12/10/17 12/10/17 12/10/17 Range/Units 10:40 10:40 10:40 WBC 3.1 L (3.8-10.6) k/uL RBC 3.30 L (4.30-5.90) m/uL Hgb 9.5 L D (13.0-17.5) gm/dL Hct 27.5 L (39.0-53.0) % MCV 83.4 (80.0-100.0) fL MCH 28.9 (25.0-35.0) pg MCHC 34.7 (31.0-37.0) g/dL RDW 15.4 (11.5-15.5) % Plt Count 125 L (150-450) k/uL Neutrophils % 67 % Lymphocytes % 24 % Monocytes % 5 % Eosinophils % 3 % Basophils % 1 % Neutrophils # 2.1 (1.3-7.7) k/uL Lymphocytes # 0.7 L (1.0-4.8) k/uL Monocytes # 0.2 (0-1.0) k/uL Eosinophils # 0.1 (0-0.7) k/uL Basophils # 0.0 (0-0.2) k/uL Poikilocytosis Slight PT (9.0-12.0) sec INR (<1.2) APTT (22.0-30.0) sec Sodium 141 (137-145) mmol/L Potassium 4.0 (3.5-5.1) mmol/L Chloride 104 (98-107) mmol/L Carbon Dioxide 26 (22-30) mmol/L Anion Gap 11 mmol/L BUN 9 (9-20) mg/dL Creatinine 0.75 (0.66-1.25) mg/dL Est GFR (CKD-EPI)AfAm >90 (>60 ml/min/1.73 sqM) Est GFR (CKD-EPI)NonAf >90 (>60 ml/min/1.73 sqM) Glucose 193 H (74-99) mg/dL Calcium 9.3 (8.4-10.2) mg/dL Total Bilirubin 1.1 (0.2-1.3) mg/dL AST 47 (17-59) U/L ALT 52 (21-72) U/L Alkaline Phosphatase 68 (38-126) U/L Total Creatine Kinase 102 (55-170) U/L CK-MB (CK-2) 1.5 (0.0-2.4) ng/mL CK-MB (CK-2) Rel Index 1.5 Troponin I <0.012 (0.000-0.034) ng/mL Total Protein 5.7 L (6.3-8.2) g/dL Albumin 3.5 (3.5-5.0) g/dL Urine Color Urine Appearance (Clear) Urine pH (5.0-8.0) Ur Specific [place] (1.001-1.035) Urine Protein (Negative) Urine Glucose (UA) (Negative) Urine Ketones (Negative) Urine Blood (Negative) Urine Nitrite (Negative) Urine Bilirubin (Negative) Urine Urobilinogen (<2.0) mg/dL Ur Leukocyte Esterase (Negative) Urine RBC (0-5) /hpf Urine WBC (0-5) /hpf Hyaline Casts (0-2) /lpf Urine Mucus (None) /hpf 12/10/17 12/10/17 Range/Units 10:40 10:40 WBC (3.8-10.6) k/uL RBC (4.30-5.90) m/uL Hgb (13.0-17.5) gm/dL Hct (39.0-53.0) % MCV (80.0-100.0) fL MCH (25.0-35.0) pg MCHC (31.0-37.0) g/dL RDW (11.5-15.5) % Plt Count (150-450) k/uL Neutrophils % % Lymphocytes % % Monocytes % % Eosinophils % % Basophils % % Neutrophils # (1.3-7.7) k/uL Lymphocytes # (1.0-4.8) k/uL Monocytes # (0-1.0) k/uL Eosinophils # (0-0.7) k/uL Basophils # (0-0.2) k/uL Poikilocytosis PT 10.1 (9.0-12.0) sec INR 1.0 (<1.2) APTT 24.0 (22.0-30.0) sec Sodium (137-145) mmol/L Potassium (3.5-5.1) mmol/L Chloride (98-107) mmol/L Carbon Dioxide (22-30) mmol/L Anion Gap mmol/L BUN (9-20) mg/dL Creatinine (0.66-1.25) mg/dL Est GFR (CKD-EPI)AfAm (>60 ml/min/1.73 sqM) Est GFR (CKD-EPI)NonAf (>60 ml/min/1.73 sqM) Glucose (74-99) mg/dL Calcium (8.4-10.2) mg/dL Total Bilirubin (0.2-1.3) mg/dL AST (17-59) U/L ALT (21-72) U/L Alkaline Phosphatase (38-126) U/L Total Creatine Kinase (55-170) U/L CK-MB (CK-2) (0.0-2.4) ng/mL CK-MB (CK-2) Rel Index Troponin I (0.000-0.034) ng/mL Total Protein (6.3-8.2) g/dL Albumin (3.5-5.0) g/dL Urine Color Dark Yellow Urine Appearance Clear (Clear) Urine pH 6.5 (5.0-8.0) Ur Specific [place] 1.016 (1.001-1.035) Urine Protein Trace H (Negative) Urine Glucose (UA) Negative (Negative) Urine Ketones Negative (Negative) Urine Blood Negative (Negative) Urine Nitrite Positive (Negative) Urine Bilirubin 1+ H (Negative) Urine Urobilinogen 4.0 (<2.0) mg/dL Ur Leukocyte Esterase Negative (Negative) Urine RBC 3 (0-5) /hpf Urine WBC 1 (0-5) /hpf Hyaline Casts 2 (0-2) /lpf Urine Mucus Moderate H (None) /hpf Disposition Clinical Impression: Weakness Disposition: HOME SELF-CARE Condition: Good Instructions: Weakness (ED) Referrals: Brandon Mcpherson MD [Primary Care Provider] - 1-2 days Time of Disposition: 11:35
[2017-12-10 10:57] LABS: Basophils % (A) 1 %; Eosinophils # (A) 0.1 k/uL (0-0.7); Eosinophils % (A) 3 %; HCT 27.5 % (39.0-53.0); Lymphocytes # (A) 0.7 k/uL (1.0-4.8); Lymphocytes % (A) 24 %; MCH 28.9 pg (25.0-35.0); MCHC 34.7 g/dL (31.0-37.0); MCV 83.4 fL (80.0-100.0); Monocytes # (A) 0.2 k/uL (0-1.0); Monocytes % (A) 5 %; Neutrophils # (A) 2.1 k/uL (1.3-7.7); Neutrophils % (A) 67 %; Platelet Count 125 k/uL (150-450); Poikilocytosis Slight; RDW 15.4 % (11.5-15.5); WBC 3.1 k/uL (3.8-10.6)
[2017-12-10 10:59] LABS: Appearance,Urine Clear (Clear); Bilirubin,Urine 1+ (Negative); Blood,Urine Negative (Negative); Color,Urine Dark Yellow; Glucose,Urine (UA) Negative (Negative); Hyaline Casts,Urine 2 /lpf (0-2); Ketones,Urine Negative (Negative); Leukocyte Esterase,Urine Negative (Negative); Mucus,Urine Moderate /hpf; Nitrite,Urine Positive (Negative); PH, Urine 6.5 (5.0-8.0); Protein,Urine Trace (Negative); RBC,Urine 3 /hpf (0-5); Specific Gravity,Urine 1.016 (1.001-1.035); WBC,Urine 1 /hpf (0-5)
[2017-12-10 11:05] LABS: ALT 52 U/L (21-72); AST 47 U/L (17-59); Albumin 3.5 g/dL (3.5-5.0); Alkaline Phosphatase 68 U/L (38-126); Anion Gap 11 mmol/L; Blood Urea Nitrogen 9 mg/dL (9-20); Calcium 9.3 mg/dL (8.4-10.2); Carbon Dioxide 26 mmol/L (22-30); Chloride 104 mmol/L (98-107); Glucose 193 mg/dL (74-99); Prothrombin Time 10.1 sec (9.0-12.0); Sodium 141 mmol/L (137-145); Total Bilirubin 1.1 mg/dL (0.2-1.3); Total Protein 5.7 g/dL (6.3-8.2)
[2017-12-10 11:09] LABS: HGB 9.5 gm/dL (13.0-17.5)
[2017-12-10 11:13] LABS: Creatine Kinase 102 U/L (55-170)
[2017-12-10 11:25] LABS: Creatine Kinase MB 1.5 ng/mL (0.0-2.4); Troponin I <0.012 ng/mL (0.000-0.034)
[2017-12-10 11:55] VITALS: BP 129/79; PULSE 82; TEMP 98.7
== END 2017-12-10 11:54 | disposition home or self-care (01) ==
LOC: EC 10:08
DX: R53.1 Weakness (principal); R10.9 Unspecified abdominal pain; R71.8 Other abnormality of red blood cells; F17.200 Nicotine dependence, unspecified, uncomplicated; E11.9 Type 2 diabetes mellitus without complications; I10 Essential (primary) hypertension; K21.9 Gastro-esophageal reflux disease without esophagitis; G40.909 Epilepsy, unspecified, not intractable, without status epilepticus; F32.9 Major depressive disorder, single episode, unspecified; F20.9 Schizophrenia, unspecified; Z88.0 Allergy status to penicillin; Z88.8 Allergy status to other drugs, medicaments and biological substances; Z91.011 Allergy to milk products; Z79.4 Long term (current) use of insulin; Z79.899 Other long term (current) drug therapy
CPT/HCPCS: 36415; 80053; 81001; 82550; 82553; 84484; 85025; 85610; 85730; 86850; 86900; 86901; 87086; 96360; 99283; 99284

== ENCOUNTER 2017-12-10 23:30 | Emergency (ER) | payer MEDICARE, OTHER ==
[2017-12-10 23:42] VITALS: RESP 18
[2017-12-11 02:08] LABS: Appearance,Urine Clear (Clear); Bilirubin,Urine Negative (Negative); Blood,Urine Negative (Negative); Color,Urine Dark Yellow; Glucose,Urine (UA) Negative (Negative); Ketones,Urine Negative (Negative); Leukocyte Esterase,Urine Negative (Negative); Nitrite,Urine Negative (Negative); Protein,Urine Trace (Negative); Specific Gravity,Urine 1.019 (1.001-1.035)
--- NOTE | 2017-12-11 02:08 | XR ---
EXAMINATION TYPE: XR KUB DATE OF EXAM: 12/11/2017 COMPARISON: 11/24/2017 HISTORY: Abdominal pain TECHNIQUE: 2 views FINDINGS: There is no sign of intestinal obstruction or pneumoperitoneum. There are clips from cholec ystectomy. Lung bases are clear. There are no pathologic calcifications over the kidneys. IMPRESSION: Nonacute abdomen.
[2017-12-11] MEDS ORDERED: LORazepam 2 MG/ML INJ IM STA (02:31)
[2017-12-11] MEDS ORDERED: DICYCLOMINE 10 MG/ML 2 ML AMP IM STA (02:31)
--- NOTE | 2017-12-11 02:33 | ED ---
Abdominal Pain HPI - General Chief Complaint: Abdominal Pain Stated Complaint: ABD PAIN Time Seen by Provider: 12/11/17 01:25 Source: patient, RN notes reviewed Mode of arrival: ambulatory Limitations: no limitations - History of Present Illness Initial Comments: This a 47-year-old male presents emergency Department with abdominal bloating gas. Patient was seen here last 12 hours for similar complaints had lab work which is unremarkable. Patient is refusing any laboratory this time. X-ray performed. Patient's urinalysis was performed. Patient states that he took some Levsin earlier and some Gas-X he states that he has is having a panic attack. Denies any chest pain but complains of tingling all over. Patient has no weakness. - Related Data Home Medications Medication Instructions Recorded Confirmed Lisinopril [Zestril] 10 mg PO QAM 06/06/14 12/10/17 INSULIN LISPRO (HumaLOG) [humaLOG] See Protocol SQ AC-TID 08/16/15 12/10/17 Divalproex Sodium [Depakote] 500 mg PO TID 01/10/17 12/10/17 traZODone HCL 50 mg PO HS 11/08/17 12/10/17 Cetirizine HCl [Zyrtec] 10 mg PO DAILY 11/17/17 12/10/17 Hyoscyamine Sulfate [Levsin] 0.125 mg PO Q4H 11/29/17 12/10/17 Omeprazole 20 mg PO BID 11/30/17 12/10/17 Alfuzosin HCl [Alfuzosin HCl ER] 10 mg PO DAILY 12/04/17 12/10/17 Polyethylene Glycol 3350 [Miralax] 17 gm PO DAILY 12/04/17 12/10/17 Ferrous Fumarate/Ascorbic Acid 1 tab PO DAILY 12/10/17 12/10/17 [Doris-Sequels 65-25 mg Caplet] Previous Rx's Medication Instructions Recorded Simethicone [Gas-X] 125 mg PO QID #10 capsule 11/27/17 Insulin Glargine [Lantus] 45 unit SQ HS #0 12/07/17 Allergies Allergy/AdvReac Type Severity Reaction Status Date / Time bisacodyl Allergy dizziness Verified 12/10/17 23:41 [From Dulcolax (bisacodyl)] gabapentin Allergy seizures Verified 12/10/17 23:41 lactulose Allergy Rash/Hives Verified 12/10/17 23:41 Penicillins Allergy Unknown Verified 12/10/17 23:41 Childhood clozapine [From Clozaril] AdvReac Severe Aggression Verified 12/10/17 23:41 Review of Systems ROS Statement: Those systems with pertinent positive or pertinent negative responses have been documented in the HPI. ROS Other: All systems not noted in ROS Statement are negative. Past Medical History Past Medical History: Asthma, Diabetes Mellitus, GERD/Reflux, GI Bleed, Hypertension, Osteoarthritis (OA), Seizure Disorder, Skin Disorder, Sleep Apnea/ CPAP/BIPAP Additional Past Medical History / Comment(s): Abd pain,states "poss UTI-sees Dr Oriana Mcpherson on 11-29-17 for appt-and recent admission to [facility] for heart problems", LAST SEIZURE 28 YRS AGO. chronic back pain. DOES NOT USE CPAP. SPINAL STENOSIS, DDD IN BACK, SCOLIOSIS, IBS, psoriasis, frequent urination, chronic diarrhea/ constipation issues History of Any Multi-Drug Resistant Organisms: None Reported Past Surgical History: Cholecystectomy, Heart Catheterization, Tonsillectomy Additional Past Surgical History / Comment(s): PAIN PROCEDURES, colonscopy with polyp removal 12/03/17 Past Anesthesia/Blood Transfusion Reactions: Motion Sickness Past Psychological History: ADD/ADHD, Schizophrenia, Depression, Schizophrenia Smoking Status: Current some day smoker Past Alcohol Use History: None Reported Past Drug Use History: Marijuana - Past Family History Father Family Medical History: Unable to Obtain Additional Family Medical History / Comment(s): Father left home when pt was 5 yrs old. Mother Family Medical History: No Reported History Additional Family Medical History / Comment(s): Mother at age 55yrs of [place]. General Exam Limitations: no limitations General appearance: alert, in no apparent distress, anxious Head exam: Present: atraumatic, normocephalic, normal inspection Neck exam: Present: normal inspection. Absent: tenderness, meningismus, lymphadenopathy Respiratory exam: Present: normal lung sounds bilaterally. Absent: respiratory distress, wheezes, rales, rhonchi, stridor Cardiovascular Exam: Present: regular rate, normal rhythm, normal heart sounds. Absent: systolic murmur, diastolic murmur, rubs, gallop, clicks GI/Abdominal exam: Present: soft, hyperactive bowel sounds. Absent: distended, tenderness, guarding, rebound, rigid Back exam: Absent: CVA tenderness (R), CVA tenderness (L) Course Vital Signs 12/10/17 23:38 Temperature 97.9 F Pulse Rate 88 Respiratory 18 Rate Blood Pressure 125/78 O2 Sat by Pulse 99 Oximetry Medical Decision Making - Medical Decision Making 47-year-old male presents from for gas issues. Patient we given Bentyl IM states it's helped in the past. Patient also having issues anxiety will be given Ativan. Patient discharged advised follow-up Dr. Stephens in his primary care physician. Patient agrees this plan. - Lab Data Lab Results 12/11/17 Range/Units 01:58 Urine Color Dark Yellow Urine Appearance Clear (Clear) Urine pH 6.0 (5.0-8.0) Ur Specific [place] 1.019 (1.001-1.035) Urine Protein Trace H (Negative) Urine Glucose (UA) Negative (Negative) Urine Ketones Negative (Negative) Urine Blood Negative (Negative) Urine Nitrite Negative (Negative) Urine Bilirubin Negative (Negative) Urine Urobilinogen 3.0 (<2.0) mg/dL Ur Leukocyte Esterase Negative (Negative) Disposition Clinical Impression: Abdominal gas pain, Anxiety Disposition: HOME SELF-CARE Condition: Stable Instructions: Gas and Bloating (ED) Additional Instructions: Please return to the Emergency Department if symptoms worsen or any other concerns. Referrals: Brandon Mcpherson MD [Primary Care Provider] - 1-2 days Time of Disposition: 02:33
[2017-12-11 02:51] VITALS: BP 114/62; PULSE 66; TEMP 97.4
== END 2017-12-11 02:50 | disposition home or self-care (01) ==
LOC: EC 23:30
DX: F41.9 Anxiety disorder, unspecified (principal); R14.0 Abdominal distension (gaseous); E11.9 Type 2 diabetes mellitus without complications; K21.9 Gastro-esophageal reflux disease without esophagitis; I10 Essential (primary) hypertension; G40.909 Epilepsy, unspecified, not intractable, without status epilepticus; F90.9 Attention-deficit hyperactivity disorder, unspecified type; F32.9 Major depressive disorder, single episode, unspecified; F17.200 Nicotine dependence, unspecified, uncomplicated; G47.30 Sleep apnea, unspecified; Z99.89 Dependence on other enabling machines and devices; Z90.49 Acquired absence of other specified parts of digestive tract; Z95.818 Presence of other cardiac implants and grafts; Z79.4 Long term (current) use of insulin; Z79.899 Other long term (current) drug therapy; Z88.8 Allergy status to other drugs, medicaments and biological substances; Z91.011 Allergy to milk products; Z88.0 Allergy status to penicillin
CPT/HCPCS: 99284; 96372 ×2; 81003; 74018; J2060; J0500; 99283

== ENCOUNTER 2017-12-11 18:58 | Emergency (ER) | payer MEDICARE, OTHER ==
[2017-12-11 19:25] LABS: Glucose,Whole Blood 177 mg/dL (75-99)
[2017-12-11] MEDS ORDERED: SODIUM CHLORIDE 0.9% 1,000 ML IV STA (20:57)
[2017-12-11 21:42] LABS: Basophils % (A) 1 %; Eosinophils # (A) 0.1 k/uL (0-0.7); Eosinophils % (A) 2 %; HCT 27.7 % (39.0-53.0); HGB 9.4 gm/dL (13.0-17.5); Lymphocytes # (A) 1.3 k/uL (1.0-4.8); Lymphocytes % (A) 31 %; MCH 28.3 pg (25.0-35.0); MCHC 34.1 g/dL (31.0-37.0); MCV 82.9 fL (80.0-100.0); Mean Platelet Volume 8.5; Monocytes # (A) 0.3 k/uL (0-1.0); Monocytes % (A) 6 %; Neutrophils # (A) 2.6 k/uL (1.3-7.7); Neutrophils % (A) 60 %; Platelet Count 137 k/uL (150-450); Poikilocytosis Slight; RBC 3.34 m/uL (4.30-5.90); RDW 15.1 % (11.5-15.5); WBC 4.4 k/uL (3.8-10.6)
[2017-12-11 21:55] LABS: INR 1.1 (<1.2); Partial Thromboplastin Time 23.6 sec (22.0-30.0); Prothrombin Time 10.5 sec (9.0-12.0)
[2017-12-11 21:56] LABS: Appearance,Urine Clear (Clear); Bilirubin,Urine Negative (Negative); Blood,Urine Negative (Negative); Color,Urine Dark Yellow; Glucose,Urine (UA) Negative (Negative); Hyaline Casts,Urine 411 /lpf (0-2); Ketones,Urine Negative (Negative); Leukocyte Esterase,Urine Negative (Negative); Mucus,Urine Many /hpf; Nitrite,Urine Negative (Negative); Protein,Urine 1+ (Negative); RBC,Urine 2 /hpf (0-5); Specific Gravity,Urine 1.021 (1.001-1.035); Squamous Epithelial Cell,Urine <1 /hpf (0-4); WBC,Urine 2 /hpf (0-5)
[2017-12-11 22:02] LABS: ALT 54 U/L (21-72); AST 43 U/L (17-59); Albumin 3.3 g/dL (3.5-5.0); Alkaline Phosphatase 67 U/L (38-126); Anion Gap 9 mmol/L; Blood Urea Nitrogen 13 mg/dL (9-20); Calcium 9.2 mg/dL (8.4-10.2); Carbon Dioxide 26 mmol/L (22-30); Chloride 105 mmol/L (98-107); Glucose 124 mg/dL (74-99); Potassium 3.7 mmol/L (3.5-5.1); Sodium 140 mmol/L (137-145); Total Bilirubin 1.2 mg/dL (0.2-1.3); Total Protein 5.4 g/dL (6.3-8.2)
[2017-12-11] MEDS ORDERED: ACETAMINOPHEN TAB 325 MG TAB PO STA (22:21)
--- NOTE | 2017-12-11 22:47 | ED ---
General Adult HPI - General Chief complaint: Weakness Stated complaint: weakness Time Seen by Provider: 12/11/17 20:34 Source: patient, RN notes reviewed Mode of arrival: ambulatory Limitations: no limitations - History of Present Illness Initial comments: This is a 47-year-old male who presents to the emergency department with chief complaint of abdominal pain and weakness. Patient states that he saw the urologist today and was told that he has no urological issues. He states that he took a laxative and had a normal bowel movement. He states that he didn't drink orange juice and felt "bound up again." Patient states that he is having difficulty eating solid due to the generalized abdominal pain. Patient states that he also feels weak and tired. He was admitted last week with a GI bleed and received 3 units of blood. This patient is well-known to the emergency department and has been evaluated multiple times with the same complaints. Patient denies any fevers or chills, chest pain or shortness of breath, nausea or vomiting. - Related Data Home Medications Medication Instructions Recorded Confirmed Lisinopril [Zestril] 10 mg PO QAM 06/06/14 12/11/17 INSULIN LISPRO (HumaLOG) [humaLOG] See Protocol SQ AC-TID 08/16/15 12/11/17 Divalproex Sodium [Depakote] 500 mg PO TID 01/10/17 12/11/17 traZODone HCL 50 mg PO HS 11/08/17 12/11/17 Cetirizine HCl [Zyrtec] 10 mg PO DAILY 11/17/17 12/11/17 Hyoscyamine Sulfate [Levsin] 0.125 mg PO Q4H 11/29/17 12/11/17 Omeprazole 20 mg PO BID 11/30/17 12/11/17 Alfuzosin HCl [Alfuzosin HCl ER] 10 mg PO DAILY 12/04/17 12/11/17 Polyethylene Glycol 3350 [Miralax] 17 gm PO DAILY 12/04/17 12/11/17 Ferrous Fumarate/Ascorbic Acid 1 tab PO DAILY 12/10/17 12/11/17 [Doris-Sequels 65-25 mg Caplet] Previous Rx's Medication Instructions Recorded Simethicone [Gas-X] 125 mg PO QID #10 capsule 11/27/17 Insulin Glargine [Lantus] 45 unit SQ HS #0 12/07/17 Allergies Allergy/AdvReac Type Severity Reaction Status Date / Time bisacodyl Allergy dizziness Verified 12/11/17 20:10 [From Dulcolax (bisacodyl)] gabapentin Allergy seizures Verified 12/11/17 20:10 lactulose Allergy Rash/Hives Verified 12/11/17 20:10 Penicillins Allergy Unknown Verified 12/11/17 20:10 Childhood clozapine [From Clozaril] AdvReac Severe Aggression Verified 12/11/17 20:10 Review of Systems ROS Statement: Those systems with pertinent positive or pertinent negative responses have been documented in the HPI. ROS Other: All systems not noted in ROS Statement are negative. Past Medical History Past Medical History: Asthma, Diabetes Mellitus, GERD/Reflux, GI Bleed, Hypertension, Osteoarthritis (OA), Seizure Disorder, Skin Disorder, Sleep Apnea/ CPAP/BIPAP Additional Past Medical History / Comment(s): Abd pain,states "poss UTI-sees Dr Oriana Mcpherson on 11-29-17 for appt-and recent admission to [facility] for heart problems", LAST SEIZURE 28 YRS AGO. chronic back pain. DOES NOT USE CPAP. SPINAL STENOSIS, DDD IN BACK, SCOLIOSIS, IBS, psoriasis, frequent urination, chronic diarrhea/ constipation issues History of Any Multi-Drug Resistant Organisms: None Reported Past Surgical History: Cholecystectomy, Heart Catheterization, Tonsillectomy Additional Past Surgical History / Comment(s): PAIN PROCEDURES, colonscopy with polyp removal 12/03/17 with repair and transfusion Past Anesthesia/Blood Transfusion Reactions: Motion Sickness Past Psychological History: ADD/ADHD, Schizophrenia, Depression, Schizophrenia Smoking Status: Current some day smoker Past Alcohol Use History: None Reported Past Drug Use History: Marijuana - Past Family History Father Family Medical History: Unable to Obtain Additional Family Medical History / Comment(s): Father left home when pt was 5 yrs old. Mother Family Medical History: No Reported History Additional Family Medical History / Comment(s): Mother at age 55yrs of [place]. General Exam - General Exam Comments Initial Comments: General: Awake and alert, well-developed; in no apparent distress. Does not appear acutely ill. HEENT: Head atraumatic, normocephalic. Pupils are equal, round and reactive to light. Extraocular movements intact. Oropharynx moist without erythema or exudate. Neck: Supple. Normal ROM. Cardiovascular: Regular rate and rhythm. No murmurs, rubs or gallops. Chest symmetrical. Respiratory: Lungs clear to auscultation bilaterally. No wheezes, rales or rhonchi. Normal respiratory effort with no use of accessory muscles. Abdomen: Soft, non-tender, non-distended. No rigidity, rebound or guarding. Normal bowel sounds in all 4 quadrants. Musculoskeletal: Normal ROM, no tenderness bilateral upper and lower extremities. Ambulating normally. Skin: [place], warm and dry without rashes or lesions. Neurological: Alert and oriented x3. CN II-XII grossly intact. Speech is fluent and answers are appropriate. No focal neuro deficits. Limitations: no limitations Course Vital Signs 12/11/17 19:16 Temperature 97.5 F L Pulse Rate 65 Respiratory 18 Rate Blood Pressure 118/58 O2 Sat by Pulse 100 Oximetry EKG Findings - EKG Comments: EKG Findings:: 21:11:29. Normal sinus rhythm, nonspecific intraventricular conduction delay, nonspecific T-wave abnormality. Ventricular rate 66 bpm, SD interval 172, QRS duration 118, QT/QTC 418/438. No significant change from previous EKG on 12/05/2017. No ST segment elevation or depression. Medical Decision Making - Medical Decision Making 47-year-old male who presents to the emergency department with chief complaint of generalized abdominal pain and weakness. CBC did reveal a hemoglobin of 9.4 , however patient is recovering from a GI bleed from last week. Denies any melena or hematochezia at this time. CMP and UA are within normal limits. EKG revealed normal sinus rhythm. Patient's vital signs were stable and he is in no acute distress. He will be discharged home with recommendation to follow-up with his primary care provider. All questions answered. - Lab Data Result diagrams: 12/11/17 21:28 12/11/17 21:28 Lab Results 12/11/17 12/11/17 12/11/17 Range/Units 19:24 21:28 21:28 WBC 4.4 (3.8-10.6) k/uL RBC 3.34 L (4.30-5.90) m/uL Hgb 9.4 L (13.0-17.5) gm/dL Hct 27.7 L (39.0-53.0) % MCV 82.9 (80.0-100.0) fL MCH 28.3 (25.0-35.0) pg MCHC 34.1 (31.0-37.0) g/dL RDW 15.1 (11.5-15.5) % Plt Count 137 L (150-450) k/uL Neutrophils % 60 % Lymphocytes % 31 % Monocytes % 6 % Eosinophils % 2 % Basophils % 1 % Neutrophils # 2.6 (1.3-7.7) k/uL Lymphocytes # 1.3 (1.0-4.8) k/uL Monocytes # 0.3 (0-1.0) k/uL Eosinophils # 0.1 (0-0.7) k/uL Basophils # 0.0 (0-0.2) k/uL Poikilocytosis Slight PT (9.0-12.0) sec INR (<1.2) APTT (22.0-30.0) sec Sodium 140 (137-145) mmol/L Potassium 3.7 (3.5-5.1) mmol/L Chloride 105 (98-107) mmol/L Carbon Dioxide 26 (22-30) mmol/L Anion Gap 9 mmol/L BUN 13 (9-20) mg/dL Creatinine 0.80 (0.66-1.25) mg/dL Est GFR (CKD-EPI)AfAm >90 (>60 ml/min/1.73 sqM) Est GFR (CKD-EPI)NonAf >90 (>60 ml/min/1.73 sqM) Glucose 124 H (74-99) mg/dL POC Glucose (mg/dL) 177 H (75-99) mg/dL POC Glu Freight Booker ID Jose Barakat Calcium 9.2 (8.4-10.2) mg/dL Total Bilirubin 1.2 (0.2-1.3) mg/dL AST 43 (17-59) U/L ALT 54 (21-72) U/L Alkaline Phosphatase 67 (38-126) U/L Troponin I (0.000-0.034) ng/mL Total Protein 5.4 L (6.3-8.2) g/dL Albumin 3.3 L (3.5-5.0) g/dL Urine Color Urine Appearance (Clear) Urine pH (5.0-8.0) Ur Specific [place] (1.001-1.035) Urine Protein (Negative) Urine Glucose (UA) (Negative) Urine Ketones (Negative) Urine Blood (Negative) Urine Nitrite (Negative) Urine Bilirubin (Negative) Urine Urobilinogen (<2.0) mg/dL Ur Leukocyte Esterase (Negative) Urine RBC (0-5) /hpf Urine WBC (0-5) /hpf Ur Squamous Epith Cells (0-4) /hpf Hyaline Casts (0-2) /lpf Urine Mucus (None) /hpf 12/11/17 12/11/17 12/11/17 Range/Units 21:28 21:28 21:28 WBC (3.8-10.6) k/uL RBC (4.30-5.90) m/uL Hgb (13.0-17.5) gm/dL Hct (39.0-53.0) % MCV (80.0-100.0) fL MCH (25.0-35.0) pg MCHC (31.0-37.0) g/dL RDW (11.5-15.5) % Plt Count (150-450) k/uL Neutrophils % % Lymphocytes % % Monocytes % % Eosinophils % % Basophils % % Neutrophils # (1.3-7.7) k/uL Lymphocytes # (1.0-4.8) k/uL Monocytes # (0-1.0) k/uL Eosinophils # (0-0.7) k/uL Basophils # (0-0.2) k/uL Poikilocytosis PT 10.5 (9.0-12.0) sec INR 1.1 (<1.2) APTT 23.6 (22.0-30.0) sec Sodium (137-145) mmol/L Potassium (3.5-5.1) mmol/L Chloride (98-107) mmol/L Carbon Dioxide (22-30) mmol/L Anion Gap mmol/L BUN (9-20) mg/dL Creatinine (0.66-1.25) mg/dL Est GFR (CKD-EPI)AfAm (>60 ml/min/1.73 sqM) Est GFR (CKD-EPI)NonAf (>60 ml/min/1.73 sqM) Glucose (74-99) mg/dL POC Glucose (mg/dL) (75-99) mg/dL POC Glu Freight Booker ID Calcium (8.4-10.2) mg/dL Total Bilirubin (0.2-1.3) mg/dL AST (17-59) U/L ALT (21-72) U/L Alkaline Phosphatase (38-126) U/L Troponin I <0.012 (0.000-0.034) ng/mL Total Protein (6.3-8.2) g/dL Albumin (3.5-5.0) g/dL Urine Color Dark Yellow Urine Appearance Clear (Clear) Urine pH 7.0 (5.0-8.0) Ur Specific [place] 1.021 (1.001-1.035) Urine Protein 1+ H (Negative) Urine Glucose (UA) Negative (Negative) Urine Ketones Negative (Negative) Urine Blood Negative (Negative) Urine Nitrite Negative (Negative) Urine Bilirubin Negative (Negative) Urine Urobilinogen 3.0 (<2.0) mg/dL Ur Leukocyte Esterase Negative (Negative) Urine RBC 2 (0-5) /hpf Urine WBC 2 (0-5) /hpf Ur Squamous Epith Cells <1 (0-4) /hpf Hyaline Casts 411 H (0-2) /lpf Urine Mucus Many H (None) /hpf Disposition Clinical Impression: Anemia, Abdominal pain Disposition: HOME SELF-CARE Condition: Good Instructions: Abdominal Pain (ED), Anemia (ED) Additional Instructions: Please follow up with primary care provider within 1-2 days. Return to emergency department if symptoms should worsen or any concerns arise. Referrals: Brandon Mcpherson MD [Primary Care Provider] - 1-2 days Time of Disposition: 22:47
[2017-12-11 23:04] VITALS: RESP 16
[2017-12-11 23:17] VITALS: BP 128/76; PULSE 70; TEMP 97.8
== END 2017-12-11 23:10 | disposition home or self-care (01) ==
LOC: EC 18:58
DX: D64.9 Anemia, unspecified (principal); R10.84 Generalized abdominal pain; E11.9 Type 2 diabetes mellitus without complications; K21.9 Gastro-esophageal reflux disease without esophagitis; I10 Essential (primary) hypertension; G40.909 Epilepsy, unspecified, not intractable, without status epilepticus; F90.9 Attention-deficit hyperactivity disorder, unspecified type; F32.9 Major depressive disorder, single episode, unspecified; F17.200 Nicotine dependence, unspecified, uncomplicated; G47.30 Sleep apnea, unspecified; Z86.010 Personal history of colon polyps; Z99.89 Dependence on other enabling machines and devices; Z90.49 Acquired absence of other specified parts of digestive tract; Z95.818 Presence of other cardiac implants and grafts; Z79.4 Long term (current) use of insulin; Z79.899 Other long term (current) drug therapy; Z88.8 Allergy status to other drugs, medicaments and biological substances; Z91.011 Allergy to milk products; Z88.0 Allergy status to penicillin
CPT/HCPCS: 99285 ×2; 96372; 36415; 93005; 80053; 84484; 85025; 85610; 85730; 81003; 81001; 87086; 74018; J2060; J0500

== ENCOUNTER 2017-12-13 03:07 | Emergency (ER) | payer MEDICARE, OTHER ==
[2017-12-13 03:13] VITALS: TEMP 97.5
[2017-12-13] MEDS ORDERED: LORazepam 1 MG TAB PO STA (03:22)
--- NOTE | 2017-12-13 03:25 | ED ---
General Adult HPI - General Chief complaint: Arrhythmia/Palpitations Stated complaint: PALPITATIONS Time Seen by Provider: 12/13/17 03:17 Source: patient, RN notes reviewed Mode of arrival: ambulatory Limitations: no limitations - History of Present Illness Initial comments: Patient is a pleasant 47-year-old male presenting to the emergency department palpitations. Onset of symptoms was around midnight or so. Patient feels like his heart is racing. Patient questions if he has anxiety. Patient requests and Ativan to help him. No chest pain. Patient has had similar symptoms previously. No dyspnea. No recent bleeding. No abdominal pain. - Related Data Home Medications Medication Instructions Recorded Confirmed Lisinopril [Zestril] 10 mg PO QAM 06/06/14 12/13/17 INSULIN LISPRO (HumaLOG) [humaLOG] See Protocol SQ AC-TID 08/16/15 12/13/17 Divalproex Sodium [Depakote] 500 mg PO TID 01/10/17 12/13/17 traZODone HCL 50 mg PO HS 11/08/17 12/13/17 Cetirizine HCl [Zyrtec] 10 mg PO DAILY 11/17/17 12/13/17 Hyoscyamine Sulfate [Levsin] 0.125 mg PO Q4H 11/29/17 12/13/17 Omeprazole 20 mg PO BID 11/30/17 12/13/17 Alfuzosin HCl [Alfuzosin HCl ER] 10 mg PO DAILY 12/04/17 12/13/17 Polyethylene Glycol 3350 [Miralax] 17 gm PO DAILY 12/04/17 12/13/17 Ferrous Fumarate/Ascorbic Acid 1 tab PO DAILY 12/10/17 12/13/17 [Doris-Sequels 65-25 mg Caplet] Previous Rx's Medication Instructions Recorded Simethicone [Gas-X] 125 mg PO QID #10 capsule 11/27/17 Insulin Glargine [Lantus] 45 unit SQ HS #0 12/07/17 Allergies Allergy/AdvReac Type Severity Reaction Status Date / Time bisacodyl Allergy dizziness Verified 12/13/17 03:13 [From Dulcolax (bisacodyl)] gabapentin Allergy seizures Verified 12/13/17 03:13 lactulose Allergy Rash/Hives Verified 12/13/17 03:13 Penicillins Allergy Unknown Verified 12/13/17 03:13 Childhood clozapine [From Clozaril] AdvReac Severe Aggression Verified 12/13/17 03:13 Review of Systems ROS Statement: Those systems with pertinent positive or pertinent negative responses have been documented in the HPI. ROS Other: All systems not noted in ROS Statement are negative. Constitutional: Denies: fever Eyes: Denies: eye pain ENT: Denies: ear pain Respiratory: Denies: dyspnea Cardiovascular: Reports: palpitations. Denies: chest pain Endocrine: Denies: fatigue Gastrointestinal: Denies: abdominal pain Genitourinary: Denies: dysuria Musculoskeletal: Denies: back pain Skin: Denies: rash Neurological: Denies: headache Psychiatric: Reports: anxiety Past Medical History Past Medical History: Asthma, Diabetes Mellitus, GERD/Reflux, GI Bleed, Hypertension, Osteoarthritis (OA), Seizure Disorder, Skin Disorder, Sleep Apnea/ CPAP/BIPAP Additional Past Medical History / Comment(s): Abd pain,states "poss UTI-sees Dr Oriana Mcpherson on 11-29-17 for appt-and recent admission to [facility] for heart problems", LAST SEIZURE 28 YRS AGO. chronic back pain. DOES NOT USE CPAP. SPINAL STENOSIS, DDD IN BACK, SCOLIOSIS, IBS, psoriasis, frequent urination, chronic diarrhea/ constipation issues History of Any Multi-Drug Resistant Organisms: None Reported Past Surgical History: Cholecystectomy, Heart Catheterization, Tonsillectomy Additional Past Surgical History / Comment(s): PAIN PROCEDURES, colonscopy with polyp removal 12/03/17 with repair and transfusion Past Anesthesia/Blood Transfusion Reactions: Motion Sickness Past Psychological History: ADD/ADHD, Schizophrenia, Depression, Schizophrenia Smoking Status: Current some day smoker Past Alcohol Use History: None Reported Past Drug Use History: Marijuana - Past Family History Father Family Medical History: Unable to Obtain Additional Family Medical History / Comment(s): Father left home when pt was 5 yrs old. Mother Family Medical History: No Reported History Additional Family Medical History / Comment(s): Mother at age 55yrs of [place]. General Exam Limitations: no limitations General appearance: alert, in no apparent distress Head exam: Present: atraumatic Eye exam: Present: normal appearance, PERRL ENT exam: Present: normal oropharynx Neck exam: Present: normal inspection Respiratory exam: Present: normal lung sounds bilaterally Cardiovascular Exam: Present: regular rate, normal rhythm GI/Abdominal exam: Present: soft. Absent: tenderness Extremities exam: Present: normal inspection. Absent: pedal edema, calf tenderness Neurological exam: Present: alert Psychiatric exam: Present: normal affect, normal mood Skin exam: Present: normal color Course Vital Signs 12/13/17 12/13/17 03:09 04:39 Temperature 97.5 F L 97.5 F L Pulse Rate 79 67 Respiratory 20 15 Rate Blood Pressure 118/67 111/67 O2 Sat by Pulse 98 97 Oximetry - Reevaluation(s) Reevaluation #1: 12/13/17 03:25 Patient advised to have further evaluation besides just EKG. Patient refuses this but requests Ativan. EKG Findings - EKG Comments: EKG Findings:: Sinus rhythm at 72. UT 162. QRS 112. QT 426. QTc 466. Left axis. LVH criteria. PVC present. No acute ST change. Medical Decision Making - Medical Decision Making Patient feels better and requests discharge home Disposition Clinical Impression: Palpitations Disposition: HOME SELF-CARE Condition: Stable Instructions: Palpitations (ED) Additional Instructions: Please follow-up with your doctor in the next day or 2 for recheck. Return for increased heart rate, difficulty breathing, weakness or worsening symptoms or other concerns. Referrals: Brandon Mcpherson MD [Primary Care Provider] - 1-2 days Time of Disposition: 04:42
[2017-12-13 04:40] VITALS: BP 111/67; PULSE 67; RESP 15
== END 2017-12-13 04:46 | disposition home or self-care (01) ==
LOC: EC 03:07
DX: R00.2 Palpitations (principal); I10 Essential (primary) hypertension; E11.9 Type 2 diabetes mellitus without complications; G40.909 Epilepsy, unspecified, not intractable, without status epilepticus; K21.9 Gastro-esophageal reflux disease without esophagitis; K58.9 Irritable bowel syndrome, unspecified; F32.9 Major depressive disorder, single episode, unspecified; F17.200 Nicotine dependence, unspecified, uncomplicated; Z79.4 Long term (current) use of insulin; Z79.899 Other long term (current) drug therapy; Z88.0 Allergy status to penicillin; Z88.8 Allergy status to other drugs, medicaments and biological substances; Z91.011 Allergy to milk products; Z87.448 Personal history of other diseases of urinary system; Z95.9 Presence of cardiac and vascular implant and graft, unspecified; Z82.49 Family history of ischemic heart disease and other diseases of the circulatory system
CPT/HCPCS: 93005; 99284

== ENCOUNTER 2017-12-14 13:43 | Emergency (ER) | payer MEDICARE, OTHER ==
[2017-12-14 14:07] VITALS: TEMP 98.7
[2017-12-14] MEDS ORDERED: ALPRAZolam 0.25 MG TAB PO STA (14:21)
--- NOTE | 2017-12-14 14:25 | ED ---
General Adult HPI - General Chief complaint: Extremity Problem,Nontraumatic Stated complaint: Constipated Time Seen by Provider: 12/14/17 14:09 Source: patient Mode of arrival: ambulatory Limitations: no limitations - History of Present Illness Initial comments: Patient is a 47-year-old male presenting to the emergency department for a variety of complaints. Patient states that he is very anxious and that he has a "heavy sensation" throughout his body. Additionally, he states that he is constipated but unable to say exactly when his last bowel movement was. However , he states that his major complaint is left lower arm pain. He states that there is no numbness in that it is more of an achy sensation from the left elbow to the left hand. He denies any kind of injury as well as repetitive use that would've contributed to the symptoms. He also states that he is diabetic and he is been told that this is secondary to neuropathy. Additionally, he complains of increasing anxiety which has been worsening since he stopped smoking in August. He denies any chest pain or shortness of breath. Pt also denies any prolonged periods of immobility, CA, DVT/PE, estrogen use, or recent surgery. - Related Data Home Medications Medication Instructions Recorded Confirmed Lisinopril [Zestril] 10 mg PO QAM 06/06/14 12/13/17 INSULIN LISPRO (HumaLOG) [humaLOG] See Protocol SQ AC-TID 08/16/15 12/13/17 Divalproex Sodium [Depakote] 500 mg PO TID 01/10/17 12/13/17 traZODone HCL 50 mg PO HS 11/08/17 12/13/17 Cetirizine HCl [Zyrtec] 10 mg PO DAILY 11/17/17 12/13/17 Hyoscyamine Sulfate [Levsin] 0.125 mg PO Q4H 11/29/17 12/13/17 Omeprazole 20 mg PO BID 11/30/17 12/13/17 Alfuzosin HCl [Alfuzosin HCl ER] 10 mg PO DAILY 12/04/17 12/13/17 Polyethylene Glycol 3350 [Miralax] 17 gm PO DAILY 12/04/17 12/13/17 Ferrous Fumarate/Ascorbic Acid 1 tab PO DAILY 12/10/17 12/13/17 [Doris-Sequels 65-25 mg Caplet] Previous Rx's Medication Instructions Recorded Simethicone [Gas-X] 125 mg PO QID #10 capsule 11/27/17 Insulin Glargine [Lantus] 45 unit SQ HS #0 12/07/17 HYDROcodone/APAP 5-325MG [[place] 1 tab PO Q6HR PRN #5 tab 12/14/17 5-325] Allergies Allergy/AdvReac Type Severity Reaction Status Date / Time bisacodyl Allergy dizziness Verified 12/14/17 14:07 [From Dulcolax (bisacodyl)] gabapentin Allergy seizures Verified 12/14/17 14:07 lactulose Allergy Rash/Hives Verified 12/14/17 14:07 Penicillins Allergy Unknown Verified 12/14/17 14:07 Childhood clozapine [From Clozaril] AdvReac Severe Aggression Verified 12/14/17 14:07 Review of Systems ROS Statement: Those systems with pertinent positive or pertinent negative responses have been documented in the HPI. Constitutional: Negative for chills, fatigue and fever. HENT: Negative for congestion. Respiratory: Negative for chest tightness, shortness of breath and wheezing. Cardiovascular: Negative for chest pain and palpitations. Gastrointestinal: Negative for abdominal pain. Negative for abdominal distention , diarrhea, nausea and vomiting. Genitourinary: Negative for dysuria. Musculoskeletal: Negative for back pain, neck pain and neck stiffness. Positive for left lower arm pain Skin: Negative for color change. Neurological: Negative for dizziness, speech difficulty, weakness and light- headedness. Psychiatric/Behavioral: Negative for agitation and confusion. Positive for anxiety, positive for "heaviness" ROS Other: All systems not noted in ROS Statement are negative. Past Medical History Past Medical History: Asthma, Diabetes Mellitus, GERD/Reflux, GI Bleed, Hypertension, Osteoarthritis (OA), Seizure Disorder, Skin Disorder, Sleep Apnea/ CPAP/BIPAP Additional Past Medical History / Comment(s): Abd pain,states "poss UTI-sees Dr Oriana Mcpherson on 11-29-17 for appt-and recent admission to [facility] for heart problems", LAST SEIZURE 28 YRS AGO. chronic back pain. DOES NOT USE CPAP. SPINAL STENOSIS, DDD IN BACK, SCOLIOSIS, IBS, psoriasis, frequent urination, chronic diarrhea/ constipation issues History of Any Multi-Drug Resistant Organisms: None Reported Past Surgical History: Cholecystectomy, Heart Catheterization, Tonsillectomy Additional Past Surgical History / Comment(s): PAIN PROCEDURES, colonscopy with polyp removal 12/03/17 with repair and transfusion Past Anesthesia/Blood Transfusion Reactions: Motion Sickness Past Psychological History: ADD/ADHD, Schizophrenia, Depression, Schizophrenia Smoking Status: Current some day smoker Past Alcohol Use History: None Reported Past Drug Use History: Marijuana - Past Family History Father Family Medical History: Unable to Obtain Additional Family Medical History / Comment(s): Father left home when pt was 5 yrs old. Mother Family Medical History: No Reported History Additional Family Medical History / Comment(s): Mother at age 55yrs of [place]. General Exam - General Exam Comments Initial Comments: Physical Exam Constitutional: Pt is oriented to person, place, and time. Pt appears well- developed and well-nourished. No distress. HENT: Head: Normocephalic and atraumatic. Eyes: EOM are normal. Neck: Normal range of motion. Neck supple. Cardiovascular: Normal rate, regular rhythm, S1 normal, S2 normal and normal heart sounds. Exam reveals no gallop and no friction rub. 2+ radial pulse on both arms, lower extremities and upper extremities warm and dry with no signs of decreased perfusion No murmur heard. Pulmonary/Chest: Effort normal and breath sounds normal. No tachypnea and no bradypnea. No respiratory distress. No wheezes or rales noted. Abdominal: Soft. Bowel sounds are normal. Pt exhibits no shifting dullness, no distension, no pulsatile liver, no fluid wave, no abdominal bruit and no ascites. There is no tenderness. There is no rigidity, no rebound, no guarding, no tenderness at McBurney's point and negative Champion's sign. Musculoskeletal: Normal range of motion. Neurological: Pt is alert and oriented to person, place, and time. No cranial nerve deficit. No decreased sensation in his extremities Skin: Skin is warm and dry. No rash noted. Pt is not diaphoretic. No erythema. No pallor. Psychiatric: Pt has a normal mood and affect. Pt behavior is normal. Thought content normal. Patient does exhibit anxiety but no suicidal or homicidal ideation Limitations: no limitations Course Vital Signs 12/14/17 14:05 Temperature 98.7 F Pulse Rate 79 Respiratory 18 Rate Blood Pressure 118/87 O2 Sat by Pulse 100 Oximetry EKG Findings - EKG Comments: EKG Findings:: EKG shows normal sinus rhythm with 70 bpm. OK interval 192, QRS 118, QTC 466. There is no significant finding of ST depressions or elevations. Medical Decision Making - Medical Decision Making Etiology of the patient's overall systems are unclear but possibly related to an anxiety component. There are no findings on physical exam that were concerning in that the patient had good warmth and no tenderness to palpation of the left arm. Patient was also pertinent negative without lower heart score. Additionally EKG was performed and showed no significant abnormalities. Patient was given Xanax prior to discharge and advised to follow-up with his PCP. It was explained that while there does not appear to be an emergent process , the etiology of the symptoms are still unclear but possibly related to diabetic neuropathy and may need further workup as an outpatient if symptoms continue. Disposition Clinical Impression: Left arm pain Disposition: HOME SELF-CARE Condition: Good Instructions: Arm Pain (ED) Prescriptions: HYDROcodone/APAP 5-325MG [[place] 5-325] 1 tab PO Q6HR PRN #5 tab PRN Reason: Pain Referrals: Brandon Mcpherson MD [Primary Care Provider] - 1-2 days Time of Disposition: 14:51
[2017-12-14 15:00] VITALS: BP 141/73; PULSE 69; RESP 16
== END 2017-12-14 15:00 | disposition home or self-care (01) ==
LOC: EC 13:43
DX: M79.602 Pain in left arm (principal); F41.9 Anxiety disorder, unspecified; E11.9 Type 2 diabetes mellitus without complications; K21.9 Gastro-esophageal reflux disease without esophagitis; I10 Essential (primary) hypertension; K58.9 Irritable bowel syndrome, unspecified; G40.909 Epilepsy, unspecified, not intractable, without status epilepticus; G47.30 Sleep apnea, unspecified; Z99.89 Dependence on other enabling machines and devices; F20.9 Schizophrenia, unspecified; F32.9 Major depressive disorder, single episode, unspecified; F90.9 Attention-deficit hyperactivity disorder, unspecified type; F17.200 Nicotine dependence, unspecified, uncomplicated; Z79.4 Long term (current) use of insulin; Z79.899 Other long term (current) drug therapy; Z88.0 Allergy status to penicillin; Z88.8 Allergy status to other drugs, medicaments and biological substances
CPT/HCPCS: 93005; 99283

== ENCOUNTER 2017-12-15 13:06 | Emergency (ER) | payer MEDICARE, OTHER ==
[2017-12-15 14:00] LABS: Basophils % (A) 1 %; Eosinophils # (A) 0.1 k/uL (0-0.7); Eosinophils % (A) 2 %; Hyperchromasia Moderate; Lymphocytes # (A) 0.8 k/uL (1.0-4.8); Lymphocytes % (A) 23 %; MCH 29.1 pg (25.0-35.0); MCHC 35.8 g/dL (31.0-37.0); MCV 81.3 fL (80.0-100.0); Mean Platelet Volume 7.6; Monocytes # (A) 0.2 k/uL (0-1.0); Monocytes % (A) 5 %; Neutrophils # (A) 2.3 k/uL (1.3-7.7); Neutrophils % (A) 69 %; Platelet Count 127 k/uL (150-450); Poikilocytosis Moderate; RBC 3.45 m/uL (4.30-5.90); RDW 15.2 % (11.5-15.5); WBC 3.4 k/uL (3.8-10.6)
--- NOTE | 2017-12-15 14:04 | ED ---
Recheck HPI - General Chief Complaint: Recheck/Abnormal Lab/Rx Stated Complaint: low hemoglobin Time Seen by Provider: 12/15/17 13:30 Source: patient, RN notes reviewed Mode of arrival: ambulatory Limitations: no limitations - History of Present Illness Initial Comments: 47-year-old male presents emergency department for concern for low hemoglobin. He states she's had low hemoglobin the past. Patient has been here several times last week for multiple complaints. Patient is concerned that his hemoglobin is low he denies any active bleeding amount that she did. Denies any hematemesis or coffee-ground emesis. He states he just feels tired which is not usual for him. He denies chest pain, shortness breath, headache, dizziness, blurred vision or any known focal weakness. - Related Data Home Medications Medication Instructions Recorded Confirmed Lisinopril [Zestril] 10 mg PO QAM 06/06/14 12/13/17 INSULIN LISPRO (HumaLOG) [humaLOG] See Protocol SQ AC-TID 08/16/15 12/13/17 Divalproex Sodium [Depakote] 500 mg PO TID 01/10/17 12/13/17 traZODone HCL 50 mg PO HS 11/08/17 12/13/17 Cetirizine HCl [Zyrtec] 10 mg PO DAILY 11/17/17 12/13/17 Hyoscyamine Sulfate [Levsin] 0.125 mg PO Q4H 11/29/17 12/13/17 Omeprazole 20 mg PO BID 11/30/17 12/13/17 Alfuzosin HCl [Alfuzosin HCl ER] 10 mg PO DAILY 12/04/17 12/13/17 Polyethylene Glycol 3350 [Miralax] 17 gm PO DAILY 12/04/17 12/13/17 Ferrous Fumarate/Ascorbic Acid 1 tab PO DAILY 12/10/17 12/13/17 [Doris-Sequels 65-25 mg Caplet] Previous Rx's Medication Instructions Recorded Simethicone [Gas-X] 125 mg PO QID #10 capsule 11/27/17 Insulin Glargine [Lantus] 45 unit SQ HS #0 12/07/17 HYDROcodone/APAP 5-325MG [[place] 1 tab PO Q6HR PRN #5 tab 12/14/17 5-325] Allergies Allergy/AdvReac Type Severity Reaction Status Date / Time bisacodyl Allergy dizziness Verified 12/15/17 13:27 [From Dulcolax (bisacodyl)] gabapentin Allergy seizures Verified 12/15/17 13:27 lactulose Allergy Rash/Hives Verified 12/15/17 13:27 Penicillins Allergy Unknown Verified 12/15/17 13:27 Childhood clozapine [From Clozaril] AdvReac Severe Aggression Verified 12/15/17 13:27 Review of Systems ROS Statement: Those systems with pertinent positive or pertinent negative responses have been documented in the HPI. ROS Other: All systems not noted in ROS Statement are negative. Past Medical History Past Medical History: Asthma, Diabetes Mellitus, GERD/Reflux, GI Bleed, Hypertension, Osteoarthritis (OA), Seizure Disorder, Skin Disorder, Sleep Apnea/ CPAP/BIPAP Additional Past Medical History / Comment(s): Abd pain,states "poss UTI-sees Dr Oriana Mcpherson on 11-29-17 for appt-and recent admission to [facility] for heart problems", LAST SEIZURE 28 YRS AGO. chronic back pain. DOES NOT USE CPAP. SPINAL STENOSIS, DDD IN BACK, SCOLIOSIS, IBS, psoriasis, frequent urination, chronic diarrhea/ constipation issues History of Any Multi-Drug Resistant Organisms: None Reported Past Surgical History: Cholecystectomy, Heart Catheterization, Tonsillectomy Additional Past Surgical History / Comment(s): PAIN PROCEDURES, colonscopy with polyp removal 12/03/17 with repair and transfusion Past Anesthesia/Blood Transfusion Reactions: Motion Sickness Past Psychological History: ADD/ADHD, Schizophrenia, Depression, Schizophrenia Smoking Status: Current some day smoker Past Alcohol Use History: None Reported Past Drug Use History: Marijuana - Past Family History Father Family Medical History: Unable to Obtain Additional Family Medical History / Comment(s): Father left home when pt was 5 yrs old. Mother Family Medical History: No Reported History Additional Family Medical History / Comment(s): Mother at age 55yrs of [place]. General Exam Limitations: no limitations General appearance: alert, in no apparent distress Head exam: Present: atraumatic, normocephalic, normal inspection Eye exam: Present: normal appearance, PERRL, EOMI. Absent: scleral icterus, conjunctival injection, periorbital swelling ENT exam: Present: normal exam, normal oropharynx, mucous membranes moist Neck exam: Present: normal inspection, full ROM. Absent: tenderness, meningismus, lymphadenopathy Respiratory exam: Present: normal lung sounds bilaterally. Absent: respiratory distress, wheezes, rales, rhonchi, stridor Cardiovascular Exam: Present: regular rate, normal rhythm, normal heart sounds. Absent: systolic murmur, diastolic murmur, rubs, gallop, clicks GI/Abdominal exam: Present: soft, normal bowel sounds. Absent: distended, tenderness, guarding, rebound, rigid Neurological exam: Present: alert, oriented X3, CN II-XII intact Skin exam: Present: warm, dry, intact, normal color. Absent: rash Course Vital Signs 12/15/17 13:25 Temperature 98.3 F Pulse Rate 84 Respiratory 20 Rate Blood Pressure 118/67 O2 Sat by Pulse 98 Oximetry Medical Decision Making - Medical Decision Making 47-year-old male present emergency for possible hemoglobin. Patient hemoglobin is improved from prior. Patient will be discharged at this time return parameters were discussed. - Lab Data Result diagrams: 12/15/17 13:53 12/15/17 13:53 Lab Results 12/15/17 12/15/17 Range/Units 13:53 13:53 WBC 3.4 L (3.8-10.6) k/uL RBC 3.45 L (4.30-5.90) m/uL Hgb 10.0 L (13.0-17.5) gm/dL Hct 28.0 L (39.0-53.0) % MCV 81.3 (80.0-100.0) fL MCH 29.1 (25.0-35.0) pg MCHC 35.8 (31.0-37.0) g/dL RDW 15.2 (11.5-15.5) % Plt Count 127 L (150-450) k/uL Neutrophils % 69 % Lymphocytes % 23 % Monocytes % 5 % Eosinophils % 2 % Basophils % 1 % Neutrophils # 2.3 (1.3-7.7) k/uL Lymphocytes # 0.8 L (1.0-4.8) k/uL Monocytes # 0.2 (0-1.0) k/uL Eosinophils # 0.1 (0-0.7) k/uL Basophils # 0.0 (0-0.2) k/uL Hyperchromasia Moderate Poikilocytosis Moderate Sodium 139 (137-145) mmol/L Potassium 3.5 (3.5-5.1) mmol/L Chloride 106 (98-107) mmol/L Carbon Dioxide 22 (22-30) mmol/L Anion Gap 11 mmol/L BUN 6 L (9-20) mg/dL Creatinine 0.80 (0.66-1.25) mg/dL Est GFR (CKD-EPI)AfAm >90 (>60 ml/min/1.73 sqM) Est GFR (CKD-EPI)NonAf >90 (>60 ml/min/1.73 sqM) Glucose 228 H (74-99) mg/dL Calcium 9.0 (8.4-10.2) mg/dL Disposition Clinical Impression: Chronic anemia, Fatigue Disposition: HOME SELF-CARE Condition: Stable Instructions: Fatigue (ED) Additional Instructions: Please return to the Emergency Department if symptoms worsen or any other concerns. Referrals: Brandon Mcpherson MD [Primary Care Provider] - 1-2 days Time of Disposition: 14:36
[2017-12-15 14:13] LABS: Anion Gap 11 mmol/L; Blood Urea Nitrogen 6 mg/dL (9-20); Carbon Dioxide 22 mmol/L (22-30); Chloride 106 mmol/L (98-107); Glucose 228 mg/dL (74-99); Potassium 3.5 mmol/L (3.5-5.1); Sodium 139 mmol/L (137-145)
[2017-12-15 14:43] VITALS: BP 125/64; PULSE 68; RESP 16; TEMP 97.9
== END 2017-12-15 14:51 | disposition home or self-care (01) ==
LOC: EC 13:06
DX: D64.9 Anemia, unspecified (principal); I10 Essential (primary) hypertension; E11.9 Type 2 diabetes mellitus without complications; K58.9 Irritable bowel syndrome, unspecified; K21.9 Gastro-esophageal reflux disease without esophagitis; G40.909 Epilepsy, unspecified, not intractable, without status epilepticus; F32.9 Major depressive disorder, single episode, unspecified; F17.200 Nicotine dependence, unspecified, uncomplicated; Z79.4 Long term (current) use of insulin; Z79.899 Other long term (current) drug therapy; Z88.0 Allergy status to penicillin; Z88.8 Allergy status to other drugs, medicaments and biological substances; Z91.011 Allergy to milk products; Z87.448 Personal history of other diseases of urinary system
CPT/HCPCS: 36415; 80048; 85025; 99284

== ENCOUNTER 2017-12-16 18:46 | Emergency (ER) | payer MEDICARE, OTHER ==
--- NOTE | 2017-12-16 19:58 | ED ---
Abdominal Pain HPI - General Chief Complaint: Abdominal Pain Stated Complaint: abdominal pain Time Seen by Provider: 12/16/17 19:37 Source: patient, RN notes reviewed, old records reviewed Mode of arrival: ambulatory Limitations: no limitations - History of Present Illness Initial Comments: This is a 47-year-old male who presents to the emergency department with chief complaint of abdominal pain. Patient is well-known to this emergency department and presents frequently with similar complaints. Patient states that he presented to his PCPs office, Dr. Mcpherson at 3 PM this afternoon. He states that he talked about his abdominal pain and was advised to eat. He states that he went home and ate a turkey sandwich and beef stew and that his belly pain became worse after eating. He states he took polyethylene glycol, Biscol and Gas-X this morning and has had 3-4 bowel movements today. Patient complains of having abdominal pain that is periumbilical and suprapubic. He describes it as a "bubbling and stinging sensation." He denies any nausea or vomiting. Denies fevers or chills, chest pain or shortness of breath, diarrhea. - Related Data Home Medications Medication Instructions Recorded Confirmed Lisinopril [Zestril] 10 mg PO QAM 06/06/14 12/16/17 INSULIN LISPRO (HumaLOG) [humaLOG] See Protocol SQ AC-TID 08/16/15 12/16/17 Divalproex Sodium [Depakote] 500 mg PO TID 01/10/17 12/16/17 traZODone HCL 50 mg PO HS 11/08/17 12/16/17 Cetirizine HCl [Zyrtec] 10 mg PO DAILY 11/17/17 12/16/17 Hyoscyamine Sulfate [Levsin] 0.125 mg PO Q4H 11/29/17 12/16/17 Omeprazole 20 mg PO BID 11/30/17 12/16/17 Alfuzosin HCl [Alfuzosin HCl ER] 10 mg PO DAILY 12/04/17 12/16/17 Polyethylene Glycol 3350 [Miralax] 17 gm PO DAILY 12/04/17 12/16/17 Ferrous Fumarate/Ascorbic Acid 1 tab PO DAILY 12/10/17 12/16/17 [Doris-Sequels 65-25 mg Caplet] Previous Rx's Medication Instructions Recorded Simethicone [Gas-X] 125 mg PO QID #10 capsule 11/27/17 Insulin Glargine [Lantus] 45 unit SQ HS #0 12/07/17 HYDROcodone/APAP 5-325MG [[place] 1 tab PO Q6HR PRN #5 tab 12/14/17 5-325] Allergies Allergy/AdvReac Type Severity Reaction Status Date / Time bisacodyl Allergy dizziness Verified 12/16/17 19:57 [From Dulcolax (bisacodyl)] gabapentin Allergy seizures Verified 12/16/17 19:57 lactulose Allergy Rash/Hives Verified 12/16/17 19:57 Penicillins Allergy Unknown Verified 12/16/17 19:57 Childhood clozapine [From Clozaril] AdvReac Severe Aggression Verified 12/16/17 19:57 Review of Systems ROS Statement: Those systems with pertinent positive or pertinent negative responses have been documented in the HPI. ROS Other: All systems not noted in ROS Statement are negative. Past Medical History Past Medical History: Asthma, Diabetes Mellitus, GERD/Reflux, GI Bleed, Hypertension, Osteoarthritis (OA), Seizure Disorder, Skin Disorder, Sleep Apnea/ CPAP/BIPAP Additional Past Medical History / Comment(s): Abd pain,states "poss UTI-sees Dr Oriana Mcpherson on 11-29-17 for appt-and recent admission to [facility] for heart problems", LAST SEIZURE 28 YRS AGO. chronic back pain. DOES NOT USE CPAP. SPINAL STENOSIS, DDD IN BACK, SCOLIOSIS, IBS, psoriasis, frequent urination, chronic diarrhea/ constipation issues History of Any Multi-Drug Resistant Organisms: None Reported Past Surgical History: Cholecystectomy, Heart Catheterization, Tonsillectomy Additional Past Surgical History / Comment(s): PAIN PROCEDURES, colonscopy with polyp removal 12/03/17 with repair and transfusion Past Anesthesia/Blood Transfusion Reactions: Motion Sickness Past Psychological History: ADD/ADHD, Schizophrenia, Depression, Schizophrenia Smoking Status: Current some day smoker Past Alcohol Use History: None Reported Past Drug Use History: Marijuana - Past Family History Father Family Medical History: Unable to Obtain Additional Family Medical History / Comment(s): Father left home when pt was 5 yrs old. Mother Family Medical History: No Reported History Additional Family Medical History / Comment(s): Mother at age 55yrs of [place]. General Exam Limitations: no limitations General appearance: alert, in no apparent distress Head exam: Present: atraumatic, normocephalic Eye exam: Present: normal appearance, PERRL, EOMI ENT exam: Present: normal exam, normal oropharynx, mucous membranes moist Neck exam: Present: normal inspection, full ROM Respiratory exam: Present: normal lung sounds bilaterally. Absent: respiratory distress, wheezes, rales, rhonchi, stridor Cardiovascular Exam: Present: regular rate, normal rhythm, normal heart sounds GI/Abdominal exam: Present: soft, normal bowel sounds. Absent: distended, tenderness, guarding, rebound, rigid Extremities exam: Present: normal inspection, full ROM. Absent: tenderness Back exam: Present: normal inspection, full ROM Neurological exam: Present: alert, oriented X3 Psychiatric exam: Present: normal affect, normal mood Skin exam: Present: warm, dry, intact, normal color. Absent: rash Course Vital Signs 12/16/17 19:20 Temperature 97.2 F L Pulse Rate 91 Respiratory 20 Rate Blood Pressure 130/83 O2 Sat by Pulse 100 Oximetry Medical Decision Making - Medical Decision Making 47-year-old male who presents to the emergency department with chief complaint of abdominal pain. Patient is frequently evaluated at the emergency department for this problem. He does follow up with his primary care provider and has been evaluated extensively by specialists. Vital signs are stable. Bowel sounds are normal and abdomen is soft, non-tender and non-distended. Patient has been having normal bowel movements. Denies any nausea or vomiting. CBC, CMP and UA were unremarkable. patient was made aware of findings. And he states "I'm sorry i cried polanco. my doctor told me i was fine." Patient is in no acute distress and will be discharged home at this time. He is in agreement and voices understanding. All questions were answered. - Lab Data Result diagrams: 12/16/17 20:25 12/16/17 20:25 Lab Results 12/16/17 12/16/17 12/16/17 Range/Units 20:25 20:25 20:33 WBC 5.3 (3.8-10.6) k/uL RBC 3.76 L (4.30-5.90) m/uL Hgb 10.6 L (13.0-17.5) gm/dL Hct 30.2 L (39.0-53.0) % MCV 80.4 (80.0-100.0) fL MCH 28.1 (25.0-35.0) pg MCHC 35.0 (31.0-37.0) g/dL RDW 15.0 (11.5-15.5) % Plt Count 149 L (150-450) k/uL Neutrophils % 56 % Lymphocytes % 34 % Monocytes % 6 % Eosinophils % 1 % Basophils % 1 % Neutrophils # 3.0 (1.3-7.7) k/uL Lymphocytes # 1.8 (1.0-4.8) k/uL Monocytes # 0.3 (0-1.0) k/uL Eosinophils # 0.1 (0-0.7) k/uL Basophils # 0.0 (0-0.2) k/uL Hyperchromasia Slight Poikilocytosis Moderate Sodium 139 (137-145) mmol/L Potassium 3.8 (3.5-5.1) mmol/L Chloride 107 (98-107) mmol/L Carbon Dioxide 19 L (22-30) mmol/L Anion Gap 13 mmol/L BUN 12 (9-20) mg/dL Creatinine 0.80 (0.66-1.25) mg/dL Est GFR (CKD-EPI)AfAm >90 (>60 ml/min/1.73 sqM) Est GFR (CKD-EPI)NonAf >90 (>60 ml/min/1.73 sqM) Glucose 121 H (74-99) mg/dL Calcium 9.8 (8.4-10.2) mg/dL Total Bilirubin 1.5 H (0.2-1.3) mg/dL AST 25 (17-59) U/L ALT 37 (21-72) U/L Alkaline Phosphatase 78 (38-126) U/L Total Protein 6.0 L (6.3-8.2) g/dL Albumin 3.7 (3.5-5.0) g/dL Amylase 41 (30-110) U/L Lipase 140 (23-300) U/L Urine Color Colorless Urine Appearance Clear (Clear) Urine pH 6.0 (5.0-8.0) Ur Specific [place] 1.003 (1.001-1.035) Urine Protein Negative (Negative) Urine Glucose (UA) Negative (Negative) Urine Ketones Negative (Negative) Urine Blood Negative (Negative) Urine Nitrite Negative (Negative) Urine Bilirubin Negative (Negative) Urine Urobilinogen <2.0 (<2.0) mg/dL Ur Leukocyte Esterase Negative (Negative) Disposition Clinical Impression: Abdominal pain Disposition: HOME SELF-CARE Condition: Good Instructions: Abdominal Pain (ED) Additional Instructions: Please follow up with primary care provider within 1-2 days. Return to emergency department if symptoms should worsen or any concerns arise. Is patient prescribed a controlled substance at discharge?: No Referrals: Brandon Mcpherson MD [Primary Care Provider] - 1-2 days Time of Disposition: 21:27
[2017-12-16 20:48] LABS: Basophils % (A) 1 %; Eosinophils # (A) 0.1 k/uL (0-0.7); Eosinophils % (A) 1 %; HCT 30.2 % (39.0-53.0); HGB 10.6 gm/dL (13.0-17.5); Hyperchromasia Slight; Lymphocytes # (A) 1.8 k/uL (1.0-4.8); Lymphocytes % (A) 34 %; MCH 28.1 pg (25.0-35.0); MCV 80.4 fL (80.0-100.0); Monocytes # (A) 0.3 k/uL (0-1.0); Monocytes % (A) 6 %; Neutrophils % (A) 56 %; Platelet Count 149 k/uL (150-450); Poikilocytosis Moderate; RBC 3.76 m/uL (4.30-5.90); WBC 5.3 k/uL (3.8-10.6)
[2017-12-16 20:49] LABS: Appearance,Urine Clear (Clear); Bilirubin,Urine Negative (Negative); Blood,Urine Negative (Negative); Color,Urine Colorless; Glucose,Urine (UA) Negative (Negative); Ketones,Urine Negative (Negative); Leukocyte Esterase,Urine Negative (Negative); Nitrite,Urine Negative (Negative); Protein,Urine Negative (Negative); Specific Gravity,Urine 1.003 (1.001-1.035); Urobilinogen,Urine <2.0 mg/dL (<2.0)
[2017-12-16 20:56] LABS: ALT 37 U/L (21-72); AST 25 U/L (17-59); Albumin 3.7 g/dL (3.5-5.0); Alkaline Phosphatase 78 U/L (38-126); Amylase 41 U/L (30-110); Anion Gap 13 mmol/L; Blood Urea Nitrogen 12 mg/dL (9-20); Calcium 9.8 mg/dL (8.4-10.2); Carbon Dioxide 19 mmol/L (22-30); Chloride 107 mmol/L (98-107); Glucose 121 mg/dL (74-99); Lipase 140 U/L (23-300); Potassium 3.8 mmol/L (3.5-5.1); Sodium 139 mmol/L (137-145); Total Bilirubin 1.5 mg/dL (0.2-1.3)
[2017-12-16 21:56] VITALS: BP 119/70; PULSE 62; RESP 18; TEMP 97
== END 2017-12-16 21:56 | disposition home or self-care (01) ==
LOC: EC 18:46
DX: R10.33 Periumbilical pain (principal); E11.9 Type 2 diabetes mellitus without complications; K21.9 Gastro-esophageal reflux disease without esophagitis; I10 Essential (primary) hypertension; G40.909 Epilepsy, unspecified, not intractable, without status epilepticus; F90.9 Attention-deficit hyperactivity disorder, unspecified type; F32.9 Major depressive disorder, single episode, unspecified; F17.200 Nicotine dependence, unspecified, uncomplicated; G47.30 Sleep apnea, unspecified; Z99.89 Dependence on other enabling machines and devices; Z90.49 Acquired absence of other specified parts of digestive tract; Z95.818 Presence of other cardiac implants and grafts; Z79.4 Long term (current) use of insulin; Z79.899 Other long term (current) drug therapy; Z88.8 Allergy status to other drugs, medicaments and biological substances; Z91.011 Allergy to milk products; Z88.0 Allergy status to penicillin
CPT/HCPCS: 36415; 80053; 81003; 82150; 83690; 85025; 99284

== ENCOUNTER 2017-12-17 14:44 | Emergency (ER) | payer MEDICARE, OTHER ==
[2017-12-17] MEDS ORDERED: diphenhydrAMINE 50 MG CAP PO STA (15:29)
[2017-12-17 15:33] LABS: Amphetamine Screen,Urine Not Detected (NotDetected); Barbiturate Screen,Urine Not Detected (NotDetected); Benzodiazepines Screen,Urine Not Detected (NotDetected); Cocaine Screen,Urine Not Detected (NotDetected); Methadone Screen, Urine Not Detected (NotDetected); Opiate Screen,Urine Not Detected (NotDetected); Oxycodone Screen, Urine Not Detected (NotDetected); Phencyclidine Screen,Urine Not Detected (NotDetected); Tricyclic Antidepressant,Urine Not Detected (NotDetected); Urn Cannabinoid Scrn Not Detected (NotDetected)
--- NOTE | 2017-12-17 17:00 | ED ---
Psych HPI - General Chief Complaint: Psychiatric Symptoms Stated Complaint: mental health Time Seen by Provider: 12/17/17 14:52 Source: patient Mode of arrival: ambulatory - History of Present Illness Initial Comments: Patient is a 47-year-old male who presents with a chief complaint of "not understanding himself". The patient was sent to the emergency department for evaluation by his therapist. 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 Patient is not suicidal or homicidal. Patient denies any auditory or visual hallucinations. Patient currently complaining of itching. He states he was diagnosed with scabies however he has excoriations on the skin but likely not scabies. - Related Data Home Medications Medication Instructions Recorded Confirmed Lisinopril [Zestril] 10 mg PO QAM 06/06/14 12/17/17 INSULIN LISPRO (HumaLOG) [humaLOG] See Protocol SQ AC-TID 08/16/15 12/17/17 Divalproex Sodium [Depakote] 500 mg PO TID 01/10/17 12/17/17 traZODone HCL 50 mg PO HS 11/08/17 12/17/17 Cetirizine HCl [Zyrtec] 10 mg PO DAILY 11/17/17 12/17/17 Hyoscyamine Sulfate [Levsin] 0.125 mg PO Q4H 11/29/17 12/17/17 Omeprazole 20 mg PO BID 11/30/17 12/17/17 Alfuzosin HCl [Alfuzosin HCl ER] 10 mg PO DAILY 12/04/17 12/17/17 Polyethylene Glycol 3350 [Miralax] 17 gm PO DAILY 12/04/17 12/17/17 Ferrous Fumarate/Ascorbic Acid 1 tab PO DAILY 12/10/17 12/17/17 [Doris-Sequels 65-25 mg Caplet] Previous Rx's Medication Instructions Recorded Simethicone [Gas-X] 125 mg PO QID #10 capsule 11/27/17 Insulin Glargine [Lantus] 45 unit SQ HS #0 12/07/17 HYDROcodone/APAP 5-325MG [[place] 1 tab PO Q6HR PRN #5 tab 12/14/17 5-325] Allergies Allergy/AdvReac Type Severity Reaction Status Date / Time bisacodyl Allergy dizziness Verified 12/17/17 15:49 [From Dulcolax (bisacodyl)] gabapentin Allergy seizures Verified 12/17/17 15:49 lactulose Allergy Rash/Hives Verified 12/17/17 15:49 Penicillins Allergy Unknown Verified 12/17/17 15:49 Childhood clozapine [From Clozaril] AdvReac Severe Aggression Verified 12/17/17 15:49 Review of Systems ROS Statement: Those systems with pertinent positive or pertinent negative responses have been documented in the HPI. ROS Other: All systems not noted in ROS Statement are negative. Psychiatric: Reports: as per HPI, anxiety Past Medical History Past Medical History: Asthma, Diabetes Mellitus, GERD/Reflux, GI Bleed, Hypertension, Osteoarthritis (OA), Seizure Disorder, Skin Disorder, Sleep Apnea/ CPAP/BIPAP Additional Past Medical History / Comment(s): Abd pain,states "poss UTI-sees Dr Oriana Mcpherson on 11-29-17 for appt-and recent admission to [facility] for heart problems", LAST SEIZURE 28 YRS AGO. chronic back pain. DOES NOT USE CPAP. SPINAL STENOSIS, DDD IN BACK, SCOLIOSIS, IBS, psoriasis, frequent urination, chronic diarrhea/ constipation issues History of Any Multi-Drug Resistant Organisms: None Reported Past Surgical History: Cholecystectomy, Heart Catheterization, Tonsillectomy Additional Past Surgical History / Comment(s): PAIN PROCEDURES, colonscopy with polyp removal 12/03/17 with repair and transfusion Past Anesthesia/Blood Transfusion Reactions: Motion Sickness Past Psychological History: ADD/ADHD, Schizophrenia, Depression, Schizophrenia Smoking Status: Current some day smoker Past Alcohol Use History: None Reported Past Drug Use History: Marijuana - Past Family History Father Family Medical History: Unable to Obtain Additional Family Medical History / Comment(s): Father left home when pt was 5 yrs old. Mother Family Medical History: No Reported History Additional Family Medical History / Comment(s): Mother at age 55yrs of [place]. General Exam Limitations: no limitations General appearance: alert, in no apparent distress Head exam: Present: atraumatic, normocephalic ENT exam: Present: mucous membranes moist Respiratory exam: Present: normal lung sounds bilaterally Cardiovascular Exam: Present: regular rate, normal rhythm GI/Abdominal exam: Present: soft. Absent: distended, tenderness Rectal exam: Present: deferred Neurological exam: Present: alert, oriented X3 Psychiatric exam: Present: normal mood, anxious Skin exam: Present: warm, dry, intact, urticaria, other (Patient has excoriations on his bilateral upper extremities. There are no lesions in the webbing of his fingers. These are likely secondary to patient physically picking at his skin.) Course Vital Signs 12/17/17 14:46 Temperature 97.5 F L Pulse Rate 95 Respiratory 18 Rate Blood Pressure 116/66 O2 Sat by Pulse 99 Oximetry Medical Decision Making - Medical Decision Making Patient presents with a chief complaint of psychiatric evaluation. Patient was sent over by his therapist. On initial evaluation, vital signs are stable, patient is in no acute distress. He denies any suicidal or homicidal ideations , he further denies any auditory or visual hallucinations. Breath alcohol is negative, UDS sent, patient stable for behavioral health assessment. 4:50 PM This case was discussed with EPS jute bag clipper, patient is stable for outpatient management. He has an appointment set up tomorrow at his roommate agrees to take him to. All parties are agreeable with this care plan. Patient will be discharged. - Lab Data Lab Results 12/17/17 Range/Units 14:49 Urine Opiates Screen Not Detected (NotDetected) Ur Oxycodone Screen Not Detected (NotDetected) Urine Methadone Screen Not Detected (NotDetected) Ur Propoxyphene Screen Not Detected (NotDetected) Ur Barbiturates Screen Not Detected (NotDetected) U Tricyclic Antidepress Not Detected (NotDetected) Ur Phencyclidine Scrn Not Detected (NotDetected) Ur Amphetamines Screen Not Detected (NotDetected) U Methamphetamines Scrn Not Detected (NotDetected) U Benzodiazepines Scrn Not Detected (NotDetected) Urine Cocaine Screen Not Detected (NotDetected) U Marijuana (THC) Screen Not Detected (NotDetected) Disposition Clinical Impression: Acute anxiety, Personality disorder, Urticaria Disposition: HOME SELF-CARE Condition: Good Instructions: Urticaria (ED) Is patient prescribed a controlled substance at discharge?: No Referrals: Brandon Mcpherson MD [Primary Care Provider] - 1-2 days
[2017-12-17 17:19] VITALS: BP 130/81; PULSE 65; RESP 16; TEMP 98
== END 2017-12-17 17:38 | disposition home or self-care (01) ==
LOC: EC 14:44
DX: L50.9 Urticaria, unspecified (principal); F60.6 Avoidant personality disorder; I10 Essential (primary) hypertension; E11.9 Type 2 diabetes mellitus without complications; G40.909 Epilepsy, unspecified, not intractable, without status epilepticus; K58.9 Irritable bowel syndrome, unspecified; K21.9 Gastro-esophageal reflux disease without esophagitis; F32.9 Major depressive disorder, single episode, unspecified; F17.200 Nicotine dependence, unspecified, uncomplicated; Z79.4 Long term (current) use of insulin; Z79.899 Other long term (current) drug therapy; Z88.0 Allergy status to penicillin; Z88.8 Allergy status to other drugs, medicaments and biological substances; Z91.011 Allergy to milk products; Z87.448 Personal history of other diseases of urinary system; Z87.19 Personal history of other diseases of the digestive system
CPT/HCPCS: 80306; 82075; 99284

== ENCOUNTER 2017-12-18 02:41 | Emergency (ER) | payer MEDICARE, OTHER ==
[2017-12-18] MEDS ORDERED: diphenhydrAMINE 50 MG CAP ONE (03:59)
[2017-12-18 07:04] LABS: ALT 34 U/L (21-72); AST 22 U/L (17-59); Albumin 3.5 g/dL (3.5-5.0); Alkaline Phosphatase 62 U/L (38-126); Anion Gap 11 mmol/L; Blood Urea Nitrogen 16 mg/dL (9-20); Calcium 9.8 mg/dL (8.4-10.2); Carbon Dioxide 23 mmol/L (22-30); Chloride 106 mmol/L (98-107); Glucose 118 mg/dL (74-99); Potassium 3.8 mmol/L (3.5-5.1); Sodium 140 mmol/L (137-145); Total Protein 5.6 g/dL (6.3-8.2)
[2017-12-18 07:15] LABS: Basophils % (A) 1 %; Eosinophils # (A) 0.1 k/uL (0-0.7); Eosinophils % (A) 2 %; HCT 29.9 % (39.0-53.0); HGB 10.5 gm/dL (13.0-17.5); Hyperchromasia Moderate; Lymphocytes # (A) 2.1 k/uL (1.0-4.8); Lymphocytes % (A) 43 %; MCH 28.7 pg (25.0-35.0); MCHC 35.2 g/dL (31.0-37.0); MCV 81.5 fL (80.0-100.0); Mean Platelet Volume 7.6; Monocytes # (A) 0.3 k/uL (0-1.0); Monocytes % (A) 5 %; Neutrophils # (A) 2.3 k/uL (1.3-7.7); Neutrophils % (A) 47 %; Platelet Count 138 k/uL (150-450); Poikilocytosis Moderate; RBC 3.67 m/uL (4.30-5.90); RDW 14.5 % (11.5-15.5); WBC 4.9 k/uL (3.8-10.6)
[2017-12-18 07:18] LABS: Appearance,Urine Clear (Clear); Bilirubin,Urine Negative (Negative); Blood,Urine Negative (Negative); Color,Urine Yellow; Glucose,Urine (UA) Negative (Negative); Ketones,Urine Negative (Negative); Leukocyte Esterase,Urine Negative (Negative); Mucus,Urine Rare /hpf; Nitrite,Urine Negative (Negative); Protein,Urine Negative (Negative); Specific Gravity,Urine 1.012 (1.001-1.035); Urobilinogen,Urine <2.0 mg/dL (<2.0)
== END 2017-12-18 05:21 | disposition home or self-care (01) ==
LOC: EC 02:41
DX: R21 Rash and other nonspecific skin eruption (principal); M79.601 Pain in right arm; M79.602 Pain in left arm; M79.604 Pain in right leg; M79.605 Pain in left leg; M79.671 Pain in right foot; M79.672 Pain in left foot; R10.9 Unspecified abdominal pain; Z88.0 Allergy status to penicillin; Z88.8 Allergy status to other drugs, medicaments and biological substances; Z91.011 Allergy to milk products
CPT/HCPCS: 36415; 80053; 81003; 85025; 99284

== ENCOUNTER 2017-12-18 15:34 | Emergency (ER) | payer MEDICARE, OTHER ==
--- NOTE | 2017-12-18 16:25 | ED ---
General Adult HPI - General Chief complaint: Chest Pain Stated complaint: Chest Pain Time Seen by Provider: 12/18/17 15:57 Source: patient, EMS, RN notes reviewed, old records reviewed Mode of arrival: EMS Limitations: no limitations - History of Present Illness Initial comments: Patient's 47-year-old male who presents emergency room today by EMS, the chief complaint of a fall that occurred just prior to arrival. He states he is trying to transfer boxes when he fell forward. No lose consciousness. Denies any headache. Does admit to chest pain. He states it radiates from the lower abdomen up. Patient has been seen in the emergency room multiple times for this same complaint. Patient admits that this is the same pain that he's been experiencing for the last 4 months. Patient denies anything new or different about this pain today. Patient denies any recent fever, chills, shortness of breath, numbness or tingling, dysuria or hematuria, constipation or diarrhea, headaches or visual changes, or any other complaints. - Related Data Home Medications Medication Instructions Recorded Confirmed Lisinopril [Zestril] 10 mg PO QAM 06/06/14 12/17/17 INSULIN LISPRO (HumaLOG) [humaLOG] See Protocol SQ AC-TID 08/16/15 12/17/17 Divalproex Sodium [Depakote] 500 mg PO TID 01/10/17 12/17/17 traZODone HCL 50 mg PO HS 11/08/17 12/17/17 Cetirizine HCl [Zyrtec] 10 mg PO DAILY 11/17/17 12/17/17 Hyoscyamine Sulfate [Levsin] 0.125 mg PO Q4H 11/29/17 12/17/17 Omeprazole 20 mg PO BID 11/30/17 12/17/17 Alfuzosin HCl [Alfuzosin HCl ER] 10 mg PO DAILY 12/04/17 12/17/17 Polyethylene Glycol 3350 [Miralax] 17 gm PO DAILY 12/04/17 12/17/17 Ferrous Fumarate/Ascorbic Acid 1 tab PO DAILY 12/10/17 12/17/17 [Doris-Sequels 65-25 mg Caplet] Previous Rx's Medication Instructions Recorded Simethicone [Gas-X] 125 mg PO QID #10 capsule 11/27/17 Insulin Glargine [Lantus] 45 unit SQ HS #0 12/07/17 HYDROcodone/APAP 5-325MG [[place] 1 tab PO Q6HR PRN #5 tab 12/14/17 5-325] Allergies Allergy/AdvReac Type Severity Reaction Status Date / Time bisacodyl Allergy dizziness Verified 12/18/17 15:40 [From Dulcolax (bisacodyl)] gabapentin Allergy seizures Verified 12/18/17 15:40 lactulose Allergy Rash/Hives Verified 12/18/17 15:40 Penicillins Allergy Unknown Verified 12/18/17 15:40 Childhood clozapine [From Clozaril] AdvReac Severe Aggression Verified 12/18/17 15:40 Review of Systems ROS Statement: Those systems with pertinent positive or pertinent negative responses have been documented in the HPI. ROS Other: All systems not noted in ROS Statement are negative. Past Medical History Past Medical History: Asthma, Diabetes Mellitus, GERD/Reflux, GI Bleed, Hypertension, Osteoarthritis (OA), Seizure Disorder, Skin Disorder, Sleep Apnea/ CPAP/BIPAP Additional Past Medical History / Comment(s): Abd pain,states "poss UTI-sees Dr Oriana Mcpherson on 11-29-17 for appt-and recent admission to [facility] for heart problems", LAST SEIZURE 28 YRS AGO. chronic back pain. DOES NOT USE CPAP. SPINAL STENOSIS, DDD IN BACK, SCOLIOSIS, IBS, psoriasis, frequent urination, chronic diarrhea/ constipation issues History of Any Multi-Drug Resistant Organisms: None Reported Past Surgical History: Cholecystectomy, Heart Catheterization, Tonsillectomy Additional Past Surgical History / Comment(s): PAIN PROCEDURES, colonscopy with polyp removal 12/03/17 with repair and transfusion Past Anesthesia/Blood Transfusion Reactions: Motion Sickness Past Psychological History: ADD/ADHD, Schizophrenia, Depression, Schizophrenia Smoking Status: Current some day smoker Past Alcohol Use History: None Reported Past Drug Use History: Marijuana - Past Family History Father Family Medical History: Unable to Obtain Additional Family Medical History / Comment(s): Father left home when pt was 5 yrs old. Mother Family Medical History: No Reported History Additional Family Medical History / Comment(s): Mother at age 55yrs of [place]. General Exam - General Exam Comments Initial Comments: General: The patient is awake and alert, in no distress, and does not appear acutely ill. Eye: Pupils are equal, round and reactive to light, extra-ocular movements are intact. No nystagmus. There is normal conjunctiva bilaterally. No signs of icterus. Ears, nose, mouth and throat: There are moist mucous membranes and no oral lesions. Neck: The neck is supple, there is no tenderness or JVD. Cardiovascular: There is a regular rate and rhythm. No murmur, rub or gallop is appreciated. Respiratory: Lungs are clear to auscultation, respirations are non-labored, breath sounds are equal. No wheezes, stridor, rales, or rhonchi. Gastrointestinal: Mild tenderness to the epigastric area on exam. No rebound or guarding. No CVA tenderness. Musculoskeletal: Normal ROM, no tenderness. Strength 5/5. Sensation intact. Pulses equal bilaterally 2+. Neurological: A&O x 3. CN II-XII intact, There are no obvious motor or sensory deficits. Coordination appears grossly intact. Speech is normal. Skin: Skin is warm and dry and no rashes or lesions are noted. Psychiatric: Cooperative, appropriate mood & affect, normal judgment. Limitations: no limitations Course Vital Signs 12/18/17 15:40 Temperature 98.3 F Pulse Rate 66 Respiratory 16 Rate Blood Pressure 167/85 O2 Sat by Pulse 100 Oximetry EKG Findings - EKG Comments: EKG Findings:: EKG performed at 1607: Shows normal sinus rhythm at 66 bpm SC interval is 182. QRS is 120. QT/QTc 438/459. EKG compared to previous EKG on 12/14/2017 showing no acute changes. Medical Decision Making - Medical Decision Making Case discussed in detail with attending physician Dr. Monzon. Patient reexamined at this time shows no signs of distress resting comfortably. Patient EKG shows no changes. Patient has had multiple visits here in the emergency room for this complaint. He states that this is the same pain that is been expressing for the past 4 months. Patient is advised to follow-up family physician for further evaluation. Advised return for any other concerns. Disposition Clinical Impression: Fall, Chest pain Disposition: HOME SELF-CARE Condition: Stable Instructions: Chest Pain (ED) Additional Instructions: Please use medication as discussed. Please follow-up with family doctor in the next 2 days. Please return to emergency room if the symptoms increase or worsen or for any other concerns. Is patient prescribed a controlled substance at discharge?: No Referrals: Brandon Mcpherson MD [Primary Care Provider] - 1-2 days Time of Disposition: 16:41
[2017-12-18 16:59] VITALS: BP 141/72; PULSE 70; RESP 18; TEMP 98.4
== END 2017-12-18 17:00 | disposition home or self-care (01) ==
LOC: EC 15:34
DX: R07.9 Chest pain, unspecified (principal); R10.30 Lower abdominal pain, unspecified; I10 Essential (primary) hypertension; E11.9 Type 2 diabetes mellitus without complications; G40.909 Epilepsy, unspecified, not intractable, without status epilepticus; K58.9 Irritable bowel syndrome, unspecified; K21.9 Gastro-esophageal reflux disease without esophagitis; F32.9 Major depressive disorder, single episode, unspecified; F17.200 Nicotine dependence, unspecified, uncomplicated; Z79.4 Long term (current) use of insulin; Z79.899 Other long term (current) drug therapy; Z88.0 Allergy status to penicillin; Z88.8 Allergy status to other drugs, medicaments and biological substances; Z91.011 Allergy to milk products; Z87.448 Personal history of other diseases of urinary system; Z82.49 Family history of ischemic heart disease and other diseases of the circulatory system; Z95.9 Presence of cardiac and vascular implant and graft, unspecified; W18.30XA Fall on same level, unspecified, initial encounter; Y93.89 Activity, other specified
CPT/HCPCS: 36415; 80053; 81003; 85025; 93005; 99284; 99285

== ENCOUNTER 2017-12-20 10:41 | Emergency (ER) | payer MEDICARE, OTHER ==
--- NOTE | 2017-12-20 11:34 | XR ---
EXAMINATION TYPE: XR KUB DATE OF EXAM: 12/20/2017 11:28 AM CLINICAL HISTORY: Pain per order. Constipation with difficulty urinating per patient. TECHNIQUE: Two Upright KUB images of the abdomen are obtained. COMPARISON: CT abdomen and pelvis November 29, 2017. Abdominal x-ray December 11, 2017. FINDINGS: Scattered gas is seen in non-distended stomach and small bowel loops. Gas and fecal materia l is seen in non-distended colon. Cholecystectomy clips are present. There is no pneumoperitoneum artis ntified. Lung bases are clear. There is mild spurring and mild joint space loss in both hips. IMPRESSION: Overall nonobstructive bowel gas pattern.
[2017-12-20] MEDS ORDERED: MAGNESIUM CITRATE 296 ML BOTTLE PO ONE (12:05)
--- NOTE | 2017-12-20 12:05 | ED ---
Abdominal Pain HPI - General Chief Complaint: Abdominal Pain Stated Complaint: Abd.pain Time Seen by Provider: 12/20/17 11:07 Source: patient, RN notes reviewed Mode of arrival: ambulatory Limitations: no limitations - History of Present Illness Initial Comments: 47-year-old male presented from chief complaint of constipation. Patient is a can go to the bathroom. He tried 1 dose of stool softener and MiraLAX. Patient states that he is having ongoing issues. Patient has been seen in the ER several times for similar complaints. He has no current abdominal pain. States he is passing gas. Patient states that he sees his primary care doctor but states that he can only be seen once a week. Patient had several your visits this weekend within the month. Patient any chest pain or shortness of breath. Patient was able to urinate had no dysuria hematuria. - Related Data Home Medications Medication Instructions Recorded Confirmed Lisinopril [Zestril] 10 mg PO QAM 06/06/14 12/20/17 INSULIN LISPRO (HumaLOG) [humaLOG] See Protocol SQ AC-TID 08/16/15 12/20/17 Divalproex Sodium [Depakote] 500 mg PO TID 01/10/17 12/20/17 traZODone HCL 50 mg PO HS 11/08/17 12/20/17 Cetirizine HCl [Zyrtec] 10 mg PO DAILY 11/17/17 12/20/17 Hyoscyamine Sulfate [Levsin] 0.125 mg PO Q4H 11/29/17 12/20/17 Omeprazole 20 mg PO BID 11/30/17 12/20/17 Alfuzosin HCl [Alfuzosin HCl ER] 10 mg PO DAILY 12/04/17 12/20/17 Polyethylene Glycol 3350 [Miralax] 17 gm PO DAILY 12/04/17 12/20/17 Ferrous Fumarate/Ascorbic Acid 1 tab PO DAILY 12/10/17 12/20/17 [Doris-Sequels 65-25 mg Caplet] Previous Rx's Medication Instructions Recorded Simethicone [Gas-X] 125 mg PO QID #10 capsule 11/27/17 Insulin Glargine [Lantus] 45 unit SQ HS #0 12/07/17 HYDROcodone/APAP 5-325MG [[place] 1 tab PO Q6HR PRN #5 tab 12/14/17 5-241] Allergies Allergy/AdvReac Type Severity Reaction Status Date / Time bisacodyl Allergy dizziness Verified 12/20/17 11:16 [From Dulcolax (bisacodyl)] gabapentin Allergy seizures Verified 12/20/17 11:16 lactulose Allergy Rash/Hives Verified 12/20/17 11:16 Penicillins Allergy Unknown Verified 12/20/17 11:16 Childhood clozapine [From Clozaril] AdvReac Severe Aggression Verified 12/20/17 11:16 Review of Systems ROS Statement: Those systems with pertinent positive or pertinent negative responses have been documented in the HPI. ROS Other: All systems not noted in ROS Statement are negative. Past Medical History Past Medical History: Asthma, Diabetes Mellitus, GERD/Reflux, GI Bleed, Hypertension, Osteoarthritis (OA), Seizure Disorder, Skin Disorder, Sleep Apnea/ CPAP/BIPAP Additional Past Medical History / Comment(s): Abd pain,states "poss UTI-sees Dr Oriana Mcpherson on 11-29-17 for appt-and recent admission to [facility] for heart problems", LAST SEIZURE 28 YRS AGO. chronic back pain. DOES NOT USE CPAP. SPINAL STENOSIS, DDD IN BACK, SCOLIOSIS, IBS, psoriasis, frequent urination, chronic diarrhea/ constipation issues History of Any Multi-Drug Resistant Organisms: None Reported Past Surgical History: Cholecystectomy, Heart Catheterization, Tonsillectomy Additional Past Surgical History / Comment(s): PAIN PROCEDURES, colonscopy with polyp removal 12/03/17 with repair and transfusion Past Anesthesia/Blood Transfusion Reactions: Motion Sickness Past Psychological History: ADD/ADHD, Schizophrenia, Depression, Schizophrenia Smoking Status: Current some day smoker Past Alcohol Use History: None Reported Past Drug Use History: Marijuana - Past Family History Father Family Medical History: Unable to Obtain Additional Family Medical History / Comment(s): Father left home when pt was 5 yrs old. Mother Family Medical History: No Reported History Additional Family Medical History / Comment(s): Mother at age 55yrs of [place]. General Exam Limitations: no limitations General appearance: alert, in no apparent distress Head exam: Present: atraumatic, normocephalic, normal inspection Respiratory exam: Present: normal lung sounds bilaterally. Absent: respiratory distress, wheezes, rales, rhonchi, stridor Cardiovascular Exam: Present: regular rate, normal rhythm, normal heart sounds. Absent: systolic murmur, diastolic murmur, rubs, gallop, clicks GI/Abdominal exam: Present: soft, normal bowel sounds. Absent: distended, tenderness, guarding, rebound, rigid Skin exam: Present: warm, dry, intact, normal color. Absent: rash Course Vital Signs 12/20/17 10:59 Temperature 97.4 F L Pulse Rate 70 Respiratory 20 Rate Blood Pressure 125/59 O2 Sat by Pulse 98 Oximetry Medical Decision Making - Medical Decision Making 47-year-old male present emergency department because he significant medical breath. Patient was able to urinate here. No dysuria. Patient x-ray reviewed showed mild sore right otherwise normal bowel gas pattern. Patient will be discharged at this time advised to continue [id number] MiraLAX and stool softeners and has no relief in 3-4 days that he can take magnesium citrate. Patient is advised to follow-up with his PCP. Disposition Clinical Impression: Abdominal pain Disposition: HOME SELF-CARE Condition: Stable Instructions: Abdominal Pain (ED) Additional Instructions: Please return to the Emergency Department if symptoms worsen or any other concerns. Is patient prescribed a controlled substance at d/c from ED?: No Referrals: rBandon Mcpherson MD [Primary Care Provider] - 1-2 days Time of Disposition: 12:05
[2017-12-20 12:43] VITALS: BP 132/78; PULSE 78; RESP 18; TEMP 97.9
== END 2017-12-20 12:45 | disposition home or self-care (01) ==
LOC: EC 10:41
DX: R10.9 Unspecified abdominal pain (principal); K59.00 Constipation, unspecified; E11.9 Type 2 diabetes mellitus without complications; K21.9 Gastro-esophageal reflux disease without esophagitis; I10 Essential (primary) hypertension; G40.909 Epilepsy, unspecified, not intractable, without status epilepticus; G47.30 Sleep apnea, unspecified; F32.9 Major depressive disorder, single episode, unspecified; F17.200 Nicotine dependence, unspecified, uncomplicated; Z95.818 Presence of other cardiac implants and grafts; Z79.4 Long term (current) use of insulin; Z79.899 Other long term (current) drug therapy; Z88.8 Allergy status to other drugs, medicaments and biological substances; Z91.011 Allergy to milk products; Z88.0 Allergy status to penicillin
CPT/HCPCS: 99284 ×2; 74018; G0463; 99212

== ENCOUNTER 2017-12-21 12:22 | Emergency (ER) | payer MEDICARE, OTHER ==
[2017-12-21 12:27] VITALS: BP 111/69; PULSE 88; RESP 18; TEMP 97.6
[2017-12-21] MEDS ORDERED: ONDANSETRON ODT 4 MG TAB PO STA (12:39)
--- NOTE | 2017-12-21 12:57 | ED ---
General Adult HPI - General Chief complaint: Anxiety Stated complaint: Confusion Time Seen by Provider: 12/21/17 12:29 Source: patient, RN notes reviewed, old records reviewed Mode of arrival: ambulatory Limitations: no limitations - History of Present Illness Initial comments: Patient 47-year-old male presents to the emergency room today with a chief complaint of abdominal pain. He does admit that the same pain that he's been experiencing over the last several months. He is had multiple emergency room visits for this complaint. States he try to eat yesterday and was still having nausea. Patient dismissed pains located in the abdomen. He states is the same location that has been in the past. Denies anything new or different today. Patient denies she has a cluster symptoms. Patient denies any recent fever, chills, shortness of breath, chest pain, back pain, abdominal pain, nausea or vomiting, numbness or tingling, dysuria or hematuria, constipation or diarrhea, headaches or visual changes, or any other complaints. - Related Data Home Medications Medication Instructions Recorded Confirmed Lisinopril [Zestril] 10 mg PO QAM 06/06/14 12/20/17 INSULIN LISPRO (HumaLOG) [humaLOG] See Protocol SQ AC-TID 08/16/15 12/20/17 Divalproex Sodium [Depakote] 500 mg PO TID 01/10/17 12/20/17 traZODone HCL 50 mg PO HS 11/08/17 12/20/17 Cetirizine HCl [Zyrtec] 10 mg PO DAILY 11/17/17 12/20/17 Hyoscyamine Sulfate [Levsin] 0.125 mg PO Q4H 11/29/17 12/20/17 Omeprazole 20 mg PO BID 11/30/17 12/20/17 Alfuzosin HCl [Alfuzosin HCl ER] 10 mg PO DAILY 12/04/17 12/20/17 Polyethylene Glycol 3350 [Miralax] 17 gm PO DAILY 12/04/17 12/20/17 Ferrous Fumarate/Ascorbic Acid 1 tab PO DAILY 12/10/17 12/20/17 [Doris-Sequels 65-25 mg Caplet] Previous Rx's Medication Instructions Recorded Simethicone [Gas-X] 125 mg PO QID #10 capsule 11/27/17 Insulin Glargine [Lantus] 45 unit SQ HS #0 12/07/17 HYDROcodone/APAP 5-325MG [[place] 1 tab PO Q6HR PRN #5 tab 12/14/17 5-325] Allergies Allergy/AdvReac Type Severity Reaction Status Date / Time bisacodyl Allergy dizziness Verified 12/21/17 12:28 [From Dulcolax (bisacodyl)] gabapentin Allergy seizures Verified 12/21/17 12:28 lactulose Allergy Rash/Hives Verified 12/21/17 12:28 Penicillins Allergy Unknown Verified 12/21/17 12:28 Childhood clozapine [From Clozaril] AdvReac Severe Aggression Verified 12/21/17 12:28 Review of Systems ROS Statement: Those systems with pertinent positive or pertinent negative responses have been documented in the HPI. ROS Other: All systems not noted in ROS Statement are negative. Past Medical History Past Medical History: Asthma, Diabetes Mellitus, GERD/Reflux, GI Bleed, Hypertension, Osteoarthritis (OA), Seizure Disorder, Skin Disorder, Sleep Apnea/ CPAP/BIPAP Additional Past Medical History / Comment(s): Abd pain,states "poss UTI-sees Dr Oriana Mcpherson on 11-29-17 for appt-and recent admission to [facility] for heart problems", LAST SEIZURE 28 YRS AGO. chronic back pain. DOES NOT USE CPAP. SPINAL STENOSIS, DDD IN BACK, SCOLIOSIS, IBS, psoriasis, frequent urination, chronic diarrhea/ constipation issues History of Any Multi-Drug Resistant Organisms: None Reported Past Surgical History: Cholecystectomy, Heart Catheterization, Tonsillectomy Additional Past Surgical History / Comment(s): PAIN PROCEDURES, colonscopy with polyp removal 12/03/17 with repair and transfusion Past Anesthesia/Blood Transfusion Reactions: Motion Sickness Past Psychological History: ADD/ADHD, Schizophrenia, Depression, Schizophrenia Smoking Status: Current some day smoker Past Alcohol Use History: None Reported Past Drug Use History: Marijuana - Past Family History Father Family Medical History: Unable to Obtain Additional Family Medical History / Comment(s): Father left home when pt was 5 yrs old. Mother Family Medical History: No Reported History Additional Family Medical History / Comment(s): Mother at age 55yrs of [place]. General Exam Limitations: no limitations Course Vital Signs 12/21/17 12:25 Temperature 97.6 F Pulse Rate 88 Respiratory 18 Rate Blood Pressure 111/69 O2 Sat by Pulse 98 Oximetry EKG Findings - EKG Comments: EKG Findings:: EKG performed at 1252 normal sinus rhythm at 75 bpm. MO interval 202. QRS 112. QT/QTc 410/457. Compared to previous EKG on 2017 showing no acute changes. Medical Decision Making - Medical Decision Making Patient's blood work from 12/18/2017 has been reviewed. Patient EKG also compared showing no changes. Given nausea medication here the emergency room and advised to slowly increase his diet. Advised to use nausea medication that he has at home. Advised follow-up spelled physician. Patient states understanding Disposition Clinical Impression: Nausea Disposition: HOME SELF-CARE Condition: Good Instructions: Acute Nausea and Vomiting (ED) Additional Instructions: Please use medication as discussed. Please follow-up with family doctor in the next 2 days. Please return to emergency room if the symptoms increase or worsen or for any other concerns. Is patient prescribed a controlled substance at d/c from ED?: No Referrals: Brandon Mcpherson MD [Primary Care Provider] - 1-2 days Time of Disposition: 13:06
== END 2017-12-21 13:11 | disposition home or self-care (01) ==
LOC: EC 12:22
DX: R11.0 Nausea (principal); E11.9 Type 2 diabetes mellitus without complications; K21.9 Gastro-esophageal reflux disease without esophagitis; I10 Essential (primary) hypertension; G40.909 Epilepsy, unspecified, not intractable, without status epilepticus; F20.9 Schizophrenia, unspecified; F32.9 Major depressive disorder, single episode, unspecified; F17.200 Nicotine dependence, unspecified, uncomplicated; Z90.49 Acquired absence of other specified parts of digestive tract; Z95.5 Presence of coronary angioplasty implant and graft; Z88.0 Allergy status to penicillin; Z88.8 Allergy status to other drugs, medicaments and biological substances; Z79.4 Long term (current) use of insulin; Z79.899 Other long term (current) drug therapy
CPT/HCPCS: 93005; 99284

== ENCOUNTER 2017-12-22 04:33 | Emergency (ER) | payer MEDICARE, OTHER ==
[2017-12-22 05:37] LABS: Appearance,Urine Clear (Clear); Bilirubin,Urine Negative (Negative); Blood,Urine Negative (Negative); Color,Urine Colorless; Glucose,Urine (UA) Negative (Negative); Ketones,Urine Negative (Negative); Leukocyte Esterase,Urine Negative (Negative); Nitrite,Urine Negative (Negative); PH, Urine 6.5 (5.0-8.0); Protein,Urine Negative (Negative); Specific Gravity,Urine 1.002 (1.001-1.035); Urobilinogen,Urine <2.0 mg/dL (<2.0)
--- NOTE | 2017-12-22 06:28 | ED ---
General Adult HPI - General Chief complaint: Neuro Symptoms/Deficit Stated complaint: Numbness and tingling Time Seen by Provider: 12/22/17 04:50 Source: patient Mode of arrival: EMS Limitations: no limitations - History of Present Illness Initial comments: This patient is a 47-year-old man who presents to be evaluated for frequent urination which was going on this morning. The patient states that he woke up around 3 and had since that he urgently needed to urinate. He did so, without any dysuria, and went back to sleep after drinking less water. He woke an hour later and had years since urinate again. Onset/Timin -: hour(s) Consistency: now resolved Improves with: none Worsens with: none Associated Symptoms: denies other symptoms Treatments Prior to Arrival: none - Related Data Home Medications Medication Instructions Recorded Confirmed Lisinopril [Zestril] 10 mg PO QAM 06/06/14 12/20/17 INSULIN LISPRO (HumaLOG) [humaLOG] See Protocol SQ AC-TID 08/16/15 12/20/17 Divalproex Sodium [Depakote] 500 mg PO TID 01/10/17 12/20/17 traZODone HCL 50 mg PO HS 11/08/17 12/20/17 Cetirizine HCl [Zyrtec] 10 mg PO DAILY 11/17/17 12/20/17 Hyoscyamine Sulfate [Levsin] 0.125 mg PO Q4H 11/29/17 12/20/17 Omeprazole 20 mg PO BID 11/30/17 12/20/17 Alfuzosin HCl [Alfuzosin HCl ER] 10 mg PO DAILY 12/04/17 12/20/17 Polyethylene Glycol 3350 [Miralax] 17 gm PO DAILY 12/04/17 12/20/17 Ferrous Fumarate/Ascorbic Acid 1 tab PO DAILY 12/10/17 12/20/17 [Doris-Sequels 65-25 mg Caplet] Previous Rx's Medication Instructions Recorded Simethicone [Gas-X] 125 mg PO QID #10 capsule 11/27/17 Insulin Glargine [Lantus] 45 unit SQ HS #0 12/07/17 HYDROcodone/APAP 5-325MG [[place] 1 tab PO Q6HR PRN #5 tab 12/14/17 5-325] Allergies Allergy/AdvReac Type Severity Reaction Status Date / Time bisacodyl Allergy dizziness Verified 12/22/17 04:38 [From Dulcolax (bisacodyl)] gabapentin Allergy seizures Verified 12/22/17 04:38 lactulose Allergy Rash/Hives Verified 12/22/17 04:38 Penicillins Allergy Unknown Verified 12/22/17 04:38 Childhood clozapine [From Clozaril] AdvReac Severe Aggression Verified 12/22/17 04:38 Review of Systems ROS Statement: Those systems with pertinent positive or pertinent negative responses have been documented in the HPI. ROS Other: All systems not noted in ROS Statement are negative. Constitutional: Denies: fever, chills Respiratory: Denies: cough, dyspnea Cardiovascular: Denies: chest pain, palpitations Gastrointestinal: Denies: abdominal pain, nausea, vomiting Genitourinary: Reports: urgency, frequency. Denies: hematuria, discharge Musculoskeletal: Denies: back pain Skin: Denies: rash Past Medical History Past Medical History: Asthma, Diabetes Mellitus, GERD/Reflux, GI Bleed, Hypertension, Osteoarthritis (OA), Seizure Disorder, Skin Disorder, Sleep Apnea/ CPAP/BIPAP Additional Past Medical History / Comment(s): Abd pain,states "poss UTI-sees Dr Oriana Mcpherson on 11-29-17 for appt-and recent admission to [facility] for heart problems", LAST SEIZURE 28 YRS AGO. chronic back pain. DOES NOT USE CPAP. SPINAL STENOSIS, DDD IN BACK, SCOLIOSIS, IBS, psoriasis, frequent urination, chronic diarrhea/ constipation issues History of Any Multi-Drug Resistant Organisms: None Reported Past Surgical History: Cholecystectomy, Heart Catheterization, Tonsillectomy Additional Past Surgical History / Comment(s): PAIN PROCEDURES, colonscopy with polyp removal 12/03/17 with repair and transfusion Past Anesthesia/Blood Transfusion Reactions: Motion Sickness Past Psychological History: ADD/ADHD, Schizophrenia, Depression, Schizophrenia Smoking Status: Former smoker Past Alcohol Use History: None Reported Past Drug Use History: Marijuana - Past Family History Father Family Medical History: Unable to Obtain Additional Family Medical History / Comment(s): Father left home when pt was 5 yrs old. Mother Family Medical History: No Reported History Additional Family Medical History / Comment(s): Mother at age 55yrs of [place]. General Exam Limitations: no limitations General appearance: alert, in no apparent distress Head exam: Present: atraumatic, normocephalic, normal inspection Eye exam: Present: normal appearance. Absent: scleral icterus, conjunctival injection ENT exam: Present: normal oropharynx Neck exam: Present: normal inspection, full ROM Respiratory exam: Present: normal lung sounds bilaterally. Absent: respiratory distress, wheezes, rales, rhonchi, stridor Cardiovascular Exam: Present: regular rate, normal rhythm, normal heart sounds. Absent: systolic murmur, diastolic murmur, rubs, gallop GI/Abdominal exam: Present: soft. Absent: distended, tenderness, guarding, rebound, mass Extremities exam: Present: normal inspection, normal capillary refill. Absent: pedal edema, calf tenderness Back exam: Present: normal inspection. Absent: CVA tenderness (R), CVA tenderness (L) Skin exam: Present: warm, dry, intact, normal color. Absent: rash Course Vital Signs 12/22/17 12/22/17 12/22/17 04:35 05:56 06:39 Temperature 97.0 F L 97.0 F L 98.7 F Pulse Rate 65 56 L 54 L Respiratory 20 14 14 Rate Blood Pressure 137/75 123/75 132/77 O2 Sat by Pulse 100 96 100 Oximetry 12/22/17 12/22/17 06:45 07:35 Temperature Pulse Rate 62 60 Respiratory 15 16 Rate Blood Pressure 140/81 146/70 O2 Sat by Pulse 100 99 Oximetry Medical Decision Making - Lab Data Lab Results 12/22/17 Range/Units 04:40 Urine Color Colorless Urine Appearance Clear (Clear) Urine pH 6.5 (5.0-8.0) Ur Specific [place] 1.002 (1.001-1.035) Urine Protein Negative (Negative) Urine Glucose (UA) Negative (Negative) Urine Ketones Negative (Negative) Urine Blood Negative (Negative) Urine Nitrite Negative (Negative) Urine Bilirubin Negative (Negative) Urine Urobilinogen <2.0 (<2.0) mg/dL Ur Leukocyte Esterase Negative (Negative) Disposition Clinical Impression: Urinary frequency, Paresthesia Disposition: HOME SELF-CARE Condition: Good Instructions: Paresthesia (ED) Is patient prescribed a controlled substance at d/c from ED?: No Referrals: Brandon Mcpherson MD [Primary Care Provider] - 1-2 days Gwendolyn Haynes MD [STAFF PHYSICIAN] - 1-2 days
[2017-12-22 06:45] VITALS: TEMP 98.7
[2017-12-22 07:36] VITALS: BP 146/70; PULSE 60; RESP 16
[2017-12-24 16:12] LABS: N. gonorrhoeae,PCR Negative (Neg,Equiv); Neisseria Source Urine
[2017-12-24 16:15] LABS: C. trachomatis,PCR Negative (Neg,Equiv); Chlamydia trachomatis Source Urine
== END 2017-12-22 07:36 | disposition home or self-care (01) ==
LOC: EC 04:33
DX: R20.2 Paresthesia of skin (principal); R35.0 Frequency of micturition; E11.9 Type 2 diabetes mellitus without complications; K21.9 Gastro-esophageal reflux disease without esophagitis; I10 Essential (primary) hypertension; G40.909 Epilepsy, unspecified, not intractable, without status epilepticus; F32.9 Major depressive disorder, single episode, unspecified; Z87.891 Personal history of nicotine dependence; Z90.49 Acquired absence of other specified parts of digestive tract; Z98.890 Other specified postprocedural states; Z79.4 Long term (current) use of insulin; Z79.899 Other long term (current) drug therapy; Z88.0 Allergy status to penicillin; Z88.8 Allergy status to other drugs, medicaments and biological substances
CPT/HCPCS: 81003; 87491; 87591; 93005; 99284

== ENCOUNTER 2017-12-22 16:39 | Emergency (ER) | payer MEDICARE, OTHER ==
[2017-12-22 16:46] VITALS: BP 138/88; PULSE 66; RESP 18; TEMP 98
[2017-12-22] MEDS ORDERED: IBUPROFEN 600 MG TAB PO STA (17:12)
--- NOTE | 2017-12-22 17:20 | ED ---
General Adult HPI - General Chief complaint: Recheck/Abnormal Lab/Rx Stated complaint: Side of face numb Time Seen by Provider: 12/22/17 16:48 Source: patient, RN notes reviewed, old records reviewed Mode of arrival: ambulatory Limitations: no limitations - History of Present Illness Initial comments: Patient's 47-year-old male presenting to the emergency room today with chief complaint of not feeling well. Patient has been seen here in the emergency room multiple times for same complaint. Patient does not that he's had paresthesias. He states numbness throughout his body. Patient also admits to abdominal pain. He states that both these symptoms for quite some time. He states is not new today. Patient denies any other complaints or symptoms. Denies any new symptoms today. Patient denies any recent fever, chills, shortness of breath, chest pain, back pain, numbness or tingling, dysuria or hematuria, headaches or visual changes, or any other complaints. - Related Data Home Medications Medication Instructions Recorded Confirmed Lisinopril [Zestril] 10 mg PO QAM 06/06/14 12/20/17 INSULIN LISPRO (HumaLOG) [humaLOG] See Protocol SQ AC-TID 08/16/15 12/20/17 Divalproex Sodium [Depakote] 500 mg PO TID 01/10/17 12/20/17 traZODone HCL 50 mg PO HS 11/08/17 12/20/17 Cetirizine HCl [Zyrtec] 10 mg PO DAILY 11/17/17 12/20/17 Hyoscyamine Sulfate [Levsin] 0.125 mg PO Q4H 11/29/17 12/20/17 Omeprazole 20 mg PO BID 11/30/17 12/20/17 Alfuzosin HCl [Alfuzosin HCl ER] 10 mg PO DAILY 12/04/17 12/20/17 Polyethylene Glycol 3350 [Miralax] 17 gm PO DAILY 12/04/17 12/20/17 Ferrous Fumarate/Ascorbic Acid 1 tab PO DAILY 12/10/17 12/20/17 [Doris-Sequels 65-25 mg Caplet] Previous Rx's Medication Instructions Recorded Simethicone [Gas-X] 125 mg PO QID #10 capsule 11/27/17 Insulin Glargine [Lantus] 45 unit SQ HS #0 12/07/17 HYDROcodone/APAP 5-325MG [Hunters 1 tab PO Q6HR PRN #5 tab 12/14/17 5-325] Allergies Allergy/AdvReac Type Severity Reaction Status Date / Time bisacodyl Allergy dizziness Verified 12/22/17 16:46 [From Dulcolax (bisacodyl)] gabapentin Allergy seizures Verified 12/22/17 16:46 lactulose Allergy Rash/Hives Verified 12/22/17 16:46 Penicillins Allergy Unknown Verified 12/22/17 16:46 Childhood clozapine [From Clozaril] AdvReac Severe Aggression Verified 12/22/17 16:46 Review of Systems ROS Statement: Those systems with pertinent positive or pertinent negative responses have been documented in the HPI. ROS Other: All systems not noted in ROS Statement are negative. Past Medical History Past Medical History: Asthma, Diabetes Mellitus, GERD/Reflux, GI Bleed, Hypertension, Osteoarthritis (OA), Seizure Disorder, Skin Disorder, Sleep Apnea/ CPAP/BIPAP Additional Past Medical History / Comment(s): Abd pain,states "poss UTI-sees Dr Oriana Mcpherson on 11-29-17 for appt-and recent admission to [facility] for heart problems", LAST SEIZURE 28 YRS AGO. chronic back pain. DOES NOT USE CPAP. SPINAL STENOSIS, DDD IN BACK, SCOLIOSIS, IBS, psoriasis, frequent urination, chronic diarrhea/ constipation issues History of Any Multi-Drug Resistant Organisms: None Reported Past Surgical History: Cholecystectomy, Heart Catheterization, Tonsillectomy Additional Past Surgical History / Comment(s): PAIN PROCEDURES, colonscopy with polyp removal 12/03/17 with repair and transfusion Past Anesthesia/Blood Transfusion Reactions: Motion Sickness Past Psychological History: ADD/ADHD, Schizophrenia, Depression, Schizophrenia Smoking Status: Former smoker Past Alcohol Use History: None Reported Past Drug Use History: Marijuana - Past Family History Father Family Medical History: Unable to Obtain Additional Family Medical History / Comment(s): Father left home when pt was 5 yrs old. Mother Family Medical History: No Reported History Additional Family Medical History / Comment(s): Mother at age 55yrs of [place]. General Exam - General Exam Comments Initial Comments: General: The patient is awake and alert, in no distress, and does not appear acutely ill. Eye: Pupils are equal, round and reactive to light, extra-ocular movements are intact. No nystagmus. There is normal conjunctiva bilaterally. Ears, nose, mouth and throat: There are moist mucous membranes and no oral lesions. Neck: The neck is supple Cardiovascular: There is a regular rate and rhythm. No murmur, rub or gallop is appreciated. Respiratory: Lungs are clear to auscultation, respirations are non-labored, breath sounds are equal. No wheezes, stridor, rales, or rhonchi. Gastrointestinal: Abdomen soft on palpation. No specific tenderness. Musculoskeletal: Normal ROM, no tenderness. Strength 5/5. Sensation intact. Neurological: A&O x 3. CN II-XII intact, There are no obvious motor or sensory deficits. Coordination appears grossly intact. Speech is normal. Skin: Skin is warm and dry and no rashes or lesions are noted. Psychiatric: Cooperative Limitations: no limitations Course Vital Signs 12/22/17 16:44 Temperature 98 F Pulse Rate 66 Respiratory 18 Rate Blood Pressure 138/88 O2 Sat by Pulse 99 Oximetry Medical Decision Making - Medical Decision Making Patient is had multiple visits to emergency room in the last month. This is his third visit of the day for the same complaint of paresthesias. States not feeling well. Admits that his had abdominal pain. Patient's had multiple workups in the past. Is been advised that he needs follow-up the family physician. He states he has not made an appointment. Patient was advised earlier in the day to use some ibuprofen. States he did not have any did try some Tylenol. He also had aspirin. Patient states still not feeling well with pain. Missed pain to his feet. Again patient stating only symptoms are new. Patient has normal exam here in the emergency room. Long conversation was had with the patient about trying follow-up the family physician as his had multiple workups here in the ER and we are not finding what is wrong with him. FRONT DESK CLERK did discuss with social work. States that if he continues to come to the emergency room they will discuss about a legal guardian for him. I did discuss with patient about trying to follow up his family doctor. Advised him to use ibuprofen and Tylenol as needed for pain but to make sure that he is eating something when he takes these medications as it may upset his stomach. Advised him to return if there are any new symptoms. Patient states understanding and is agreeable with the plan of going home today to follow up his family doctor. Disposition Clinical Impression: Paresthesia Disposition: HOME SELF-CARE Condition: Good Instructions: Paresthesia (ED) Additional Instructions: Please continue use Tylenol/ibuprofen as needed for pain. Please make sure that you're eating small frequent meals as discussed. Please follow-up the family doctor tomorrow by calling the office to set up an appointment. Please return to the emergency room for any other concerns. Is patient prescribed a controlled substance at d/c from ED?: No Referrals: Brandon Mcpherson MD [Primary Care Provider] - 1-2 days Time of Disposition: 17:18
== END 2017-12-22 17:42 | disposition home or self-care (01) ==
LOC: EC 16:39
DX: R20.2 Paresthesia of skin (principal); R10.9 Unspecified abdominal pain; E11.9 Type 2 diabetes mellitus without complications; K21.9 Gastro-esophageal reflux disease without esophagitis; I10 Essential (primary) hypertension; G40.909 Epilepsy, unspecified, not intractable, without status epilepticus; K58.9 Irritable bowel syndrome, unspecified; F90.9 Attention-deficit hyperactivity disorder, unspecified type; F32.9 Major depressive disorder, single episode, unspecified; F20.9 Schizophrenia, unspecified; Z87.891 Personal history of nicotine dependence; Z95.818 Presence of other cardiac implants and grafts; Z79.4 Long term (current) use of insulin; Z79.899 Other long term (current) drug therapy; Z88.0 Allergy status to penicillin; Z88.8 Allergy status to other drugs, medicaments and biological substances; Z53.29 Procedure and treatment not carried out because of patient's decision for other reasons
CPT/HCPCS: 99284

== ENCOUNTER 2017-12-22 20:43 | Emergency (ER) | payer MEDICARE, OTHER ==
[2017-12-22 21:01] VITALS: TEMP 98.9
--- NOTE | 2017-12-22 22:11 | ED ---
General Adult HPI - General Chief complaint: Neuro Symptoms/Deficit Stated complaint: numbness/tingling-revisit Time Seen by Provider: 12/22/17 21:36 Source: patient, RN notes reviewed, old records reviewed Mode of arrival: ambulatory Limitations: no limitations - History of Present Illness Initial comments: 47-year-old male presents for the fourth time today chief complaint of numbness tingling. He reports he felt ill after he took a Motrin. He states that they Motrin made him go crazy. He had an anxiety attack. The patient was last in the emergency department we informed him that patient would be seeing psych services became to the emergency department again. He will return with his roommate. Patient reports that he is very frustrated going for Dr. Dunlap throughout the reasons for symptoms tingling. He's had workups multiple times the emergency department. He shouldn't reports he has no difficulty with range of motion's. - Related Data Home Medications Medication Instructions Recorded Confirmed Lisinopril [Zestril] 10 mg PO QAM 06/06/14 12/22/17 INSULIN LISPRO (HumaLOG) [humaLOG] See Protocol SQ AC-TID 08/16/15 12/22/17 Divalproex Sodium [Depakote] 500 mg PO TID 01/10/17 12/22/17 traZODone HCL 50 mg PO HS 11/08/17 12/22/17 Cetirizine HCl [Zyrtec] 10 mg PO DAILY 11/17/17 12/22/17 Hyoscyamine Sulfate [Levsin] 0.125 mg PO Q4H 11/29/17 12/22/17 Omeprazole 20 mg PO BID 11/30/17 12/22/17 Alfuzosin HCl [Alfuzosin HCl ER] 10 mg PO DAILY 12/04/17 12/22/17 Polyethylene Glycol 3350 [Miralax] 17 gm PO DAILY 12/04/17 12/22/17 Ferrous Fumarate/Ascorbic Acid 1 tab PO DAILY 12/10/17 12/22/17 [Doris-Sequels 65-25 mg Caplet] Previous Rx's Medication Instructions Recorded Simethicone [Gas-X] 125 mg PO QID #10 capsule 11/27/17 Insulin Glargine [Lantus] 45 unit SQ HS #0 12/07/17 HYDROcodone/APAP 5-325MG [Metz 1 tab PO Q6HR PRN #5 tab 12/14/17 5-325] Allergies Allergy/AdvReac Type Severity Reaction Status Date / Time bisacodyl Allergy dizziness Verified 12/22/17 16:46 [From Dulcolax (bisacodyl)] gabapentin Allergy seizures Verified 12/22/17 16:46 lactulose Allergy Rash/Hives Verified 12/22/17 16:46 Penicillins Allergy Unknown Verified 12/22/17 16:46 Childhood clozapine [From Clozaril] AdvReac Severe Aggression Verified 12/22/17 16:46 Review of Systems ROS Statement: Those systems with pertinent positive or pertinent negative responses have been documented in the HPI. ROS Other: All systems not noted in ROS Statement are negative. Past Medical History Past Medical History: Asthma, Diabetes Mellitus, GERD/Reflux, GI Bleed, Hypertension, Osteoarthritis (OA), Seizure Disorder, Skin Disorder, Sleep Apnea/ CPAP/BIPAP Additional Past Medical History / Comment(s): Abd pain,states "poss UTI-sees Dr Oriana Mcpherson on 11-29-17 for appt-and recent admission to [facility] for heart problems", LAST SEIZURE 28 YRS AGO. chronic back pain. DOES NOT USE CPAP. SPINAL STENOSIS, DDD IN BACK, SCOLIOSIS, IBS, psoriasis, frequent urination, chronic diarrhea/ constipation issues History of Any Multi-Drug Resistant Organisms: None Reported Past Surgical History: Cholecystectomy, Heart Catheterization, Tonsillectomy Additional Past Surgical History / Comment(s): PAIN PROCEDURES, colonscopy with polyp removal 12/03/17 with repair and transfusion Past Anesthesia/Blood Transfusion Reactions: Motion Sickness Past Psychological History: ADD/ADHD, Schizophrenia, Depression, Schizophrenia Smoking Status: Former smoker Past Alcohol Use History: None Reported Past Drug Use History: Marijuana - Past Family History Father Family Medical History: Unable to Obtain Additional Family Medical History / Comment(s): Father left home when pt was 5 yrs old. Mother Family Medical History: No Reported History Additional Family Medical History / Comment(s): Mother at age 55yrs of [place]. General Exam - General Exam Comments Initial Comments: 47-year-old male. Limitations: no limitations General appearance: alert, in no apparent distress Head exam: Present: atraumatic, normocephalic, normal inspection Eye exam: Present: normal appearance, PERRL, EOMI. Absent: scleral icterus, conjunctival injection, periorbital swelling ENT exam: Present: normal exam, mucous membranes moist Neck exam: Present: normal inspection. Absent: tenderness, meningismus, lymphadenopathy Respiratory exam: Present: normal lung sounds bilaterally. Absent: respiratory distress, wheezes, rales, rhonchi, stridor Cardiovascular Exam: Present: regular rate, normal rhythm, normal heart sounds. Absent: systolic murmur, diastolic murmur, rubs, gallop, clicks Extremities exam: Present: normal inspection, full ROM, normal capillary refill. Absent: tenderness, pedal edema, joint swelling, calf tenderness Back exam: Present: normal inspection Neurological exam: Present: alert, oriented X3, CN II-XII intact Psychiatric exam: Present: normal mood. Absent: normal affect Course Vital Signs 12/22/17 12/23/17 20:58 02:48 Temperature 98.9 F Pulse Rate 61 64 Respiratory 20 19 Rate Blood Pressure 129/77 134/69 O2 Sat by Pulse 99 100 Oximetry Medical Decision Making - Medical Decision Making Patient comes emergency department today for the fourth time chief complaint of numbness and tingling in his extremities. He reports he went home and took a Motrin from his last visit and he reports that the Motrin made him "crazy". He states that he had panic attack. He was brought here by his roommate. Patient' s last ER visit and the previous physician printing bindery assistant saw him and had a long discussion in regards to likely needing to find a legal guardian for the patient haven't seen the psychiatric team. Patient was informed of this. Discussed that there is not any interventions that we can do in the emergency department for his chief complaints and multiple visits for the same complaints. I discussed the patient will need to be evaluated by EPS. He agrees and has been cooperative. Patient was eventually evaluated by EPS. The case was discussed with the psychiatrist. They feel that the patient can be managed outpatient only. The EPS nurse to contact mobile crisis unit. They will be going to the patient's house today, as well as a psychiatrist at [facility]. At this time I do not feel that the patient is able to manage care for himself or understands the importance of following up with the appropriate physicians at specialties in regards to his symptoms. While patient was in the emergency department waiting he complained of constipation. Was given Colace and will be discharged with magnesium citrate. Patient understands treatment plan. He understands that we'll proceed be coming to his house tomorrow. He also states that he was supposed to make a follow-up appointment with his primary care provider which he failed to do so. I discussed the importance of following up with PCP. - Lab Data Lab Results 12/23/17 12/23/17 Range/Units 00:10 01:49 POC Glucose (mg/dL) 103 H (75-99) mg/dL POC Glu Dictaphone Mechanic ID Daryl Leyva Urine Opiates Screen Not Detected (NotDetected) Ur Oxycodone Screen Not Detected (NotDetected) Urine Methadone Screen Not Detected (NotDetected) Ur Propoxyphene Screen Not Detected (NotDetected) Ur Barbiturates Screen Not Detected (NotDetected) U Tricyclic Antidepress Not Detected (NotDetected) Ur Phencyclidine Scrn Not Detected (NotDetected) Ur Amphetamines Screen Not Detected (NotDetected) U Methamphetamines Scrn Not Detected (NotDetected) U Benzodiazepines Scrn Not Detected (NotDetected) Urine Cocaine Screen Not Detected (NotDetected) U Marijuana (THC) Screen Not Detected (NotDetected) Disposition Clinical Impression: Paresthesia, Itching, Anxiety Disposition: HOME SELF-CARE Condition: Stable Additional Instructions: Your physician and mobile crisis unit will be coming to her house for further evaluation tomorrow. Patient needs follow-up with primary care provider tomorrow. Return to emergency department if any alarming signs or symptoms occur. Is patient prescribed a controlled substance at d/c from ED?: No If prescribed controlled substance>3 days was MAPS reviewed?: No When asked, does pt state using other controlled substances?: No Referrals: Brandon Mcpherson MD [Primary Care Provider] - 1-2 days Time of Disposition: 03:39
[2017-12-23 00:12] LABS: Glucose,Whole Blood 103 mg/dL (75-99)
[2017-12-23 02:08] LABS: Amphetamine Screen,Urine Not Detected (NotDetected); Barbiturate Screen,Urine Not Detected (NotDetected); Benzodiazepines Screen,Urine Not Detected (NotDetected); Cocaine Screen,Urine Not Detected (NotDetected); Methadone Screen, Urine Not Detected (NotDetected); Opiate Screen,Urine Not Detected (NotDetected); Oxycodone Screen, Urine Not Detected (NotDetected); Phencyclidine Screen,Urine Not Detected (NotDetected); Tricyclic Antidepressant,Urine Not Detected (NotDetected); Urn Cannabinoid Scrn Not Detected (NotDetected)
[2017-12-23] MEDS ORDERED: DOCUSATE 100 MG CAP PO STA (02:52)
[2017-12-23 02:58] VITALS: BP 134/69; PULSE 64; RESP 19
[2017-12-23] MEDS ORDERED: MAGNESIUM CITRATE 296 ML BOTTLE PO ONE (03:53)
== END 2017-12-23 04:11 | disposition home or self-care (01) ==
LOC: EC 20:43
DX: K59.00 Constipation, unspecified (principal); F41.9 Anxiety disorder, unspecified; L29.9 Pruritus, unspecified; R20.2 Paresthesia of skin; I10 Essential (primary) hypertension; E11.9 Type 2 diabetes mellitus without complications; G40.909 Epilepsy, unspecified, not intractable, without status epilepticus; G47.30 Sleep apnea, unspecified; K58.9 Irritable bowel syndrome, unspecified; K21.9 Gastro-esophageal reflux disease without esophagitis; F32.9 Major depressive disorder, single episode, unspecified; Z87.891 Personal history of nicotine dependence; Z79.4 Long term (current) use of insulin; Z79.899 Other long term (current) drug therapy; Z88.0 Allergy status to penicillin; Z88.8 Allergy status to other drugs, medicaments and biological substances; Z91.011 Allergy to milk products; Z87.448 Personal history of other diseases of urinary system; Z90.49 Acquired absence of other specified parts of digestive tract
CPT/HCPCS: 36415; 80306; 81003; 87491; 87591; 93005; 99283; 99284; 99285

== ENCOUNTER 2017-12-24 15:28 | Observation (INO) | payer MEDICARE, OTHER ==
[2017-12-24] MEDS ORDERED: SODIUM CHLORIDE 0.9% 1,000 ML IV STA (17:36)
--- NOTE | 2017-12-24 18:05 | ED ---
General Adult HPI - General Chief complaint: Abdominal Pain Stated complaint: ABd Pain Time Seen by Provider: 12/24/17 17:09 Source: patient, RN notes reviewed Mode of arrival: ambulatory Limitations: no limitations - History of Present Illness Initial comments: Patient 47-year-old male presented to the emergency room with chief complaint constipation. Patient has been seen here in emergency room multiple times for similar complaints. He states he has taken magnesium citrate. States he was trying to have bowel movement. He does not that he was straining harder. He does admit that he seen some blood on the toilet paper. States he is unable have bowel movement. patient denies any other complaints currently. Patient denies any recent fever, chills, shortness of breath, chest pain, back pain, nausea vomiting, numbness or tingling, dysuria or hematuria, diarrhea, headaches or visual changes, or any other complaints. - Related Data Home Medications Medication Instructions Recorded Confirmed Lisinopril [Zestril] 10 mg PO QAM 06/06/14 12/24/17 INSULIN LISPRO (HumaLOG) [humaLOG] See Protocol SQ AC-TID 08/16/15 12/24/17 Divalproex Sodium [Depakote] 500 mg PO TID 01/10/17 12/24/17 traZODone HCL 50 mg PO HS 11/08/17 12/24/17 Cetirizine HCl [Zyrtec] 10 mg PO DAILY 11/17/17 12/24/17 Hyoscyamine Sulfate [Levsin] 0.125 mg PO Q4H 11/29/17 12/24/17 Omeprazole 20 mg PO BID 11/30/17 12/24/17 Alfuzosin HCl [Alfuzosin HCl ER] 10 mg PO DAILY 12/04/17 12/24/17 Polyethylene Glycol 3350 [Miralax] 17 gm PO DAILY 12/04/17 12/24/17 Ferrous Fumarate/Ascorbic Acid 1 tab PO DAILY 12/10/17 12/24/17 [Doris-Sequels 65-25 mg Caplet] Previous Rx's Medication Instructions Recorded Simethicone [Gas-X] 125 mg PO QID #10 capsule 11/27/17 Insulin Glargine [Lantus] 45 unit SQ HS #0 12/07/17 Allergies Allergy/AdvReac Type Severity Reaction Status Date / Time bisacodyl Allergy dizziness Verified 12/24/17 17:00 [From Dulcolax (bisacodyl)] gabapentin Allergy seizures Verified 12/24/17 17:00 lactulose Allergy Rash/Hives Verified 12/24/17 17:00 Penicillins Allergy Unknown Verified 12/24/17 17:00 Childhood clozapine [From Clozaril] AdvReac Severe Aggression Verified 12/24/17 17:00 Review of Systems ROS Statement: Those systems with pertinent positive or pertinent negative responses have been documented in the HPI. ROS Other: All systems not noted in ROS Statement are negative. Past Medical History Past Medical History: Asthma, Diabetes Mellitus, GERD/Reflux, GI Bleed, Hypertension, Osteoarthritis (OA), Seizure Disorder, Skin Disorder, Sleep Apnea/ CPAP/BIPAP Additional Past Medical History / Comment(s): Abd pain,states "poss UTI-sees Dr Oriana Mcpherson on 11-29-17 for appt-and recent admission to [facility] for heart problems", LAST SEIZURE 28 YRS AGO. chronic back pain. DOES NOT USE CPAP. SPINAL STENOSIS, DDD IN BACK, SCOLIOSIS, IBS, psoriasis, frequent urination, chronic diarrhea/ constipation issues History of Any Multi-Drug Resistant Organisms: None Reported Past Surgical History: Cholecystectomy, Heart Catheterization, Tonsillectomy Additional Past Surgical History / Comment(s): PAIN PROCEDURES, colonscopy with polyp removal 12/03/17 with repair and transfusion Past Anesthesia/Blood Transfusion Reactions: Motion Sickness Past Psychological History: ADD/ADHD, Schizophrenia, Depression, Schizophrenia Smoking Status: Former smoker Past Alcohol Use History: None Reported Past Drug Use History: Marijuana - Past Family History Father Family Medical History: Unable to Obtain Additional Family Medical History / Comment(s): Father left home when pt was 5 yrs old. Mother Family Medical History: No Reported History Additional Family Medical History / Comment(s): Mother at age 55yrs of [place]. General Exam - General Exam Comments Initial Comments: General: The patient is awake and alert, in no distress, and does not appear acutely ill. Eye: Pupils are equal, round and reactive to light, extra-ocular movements are intact. No nystagmus. There is normal conjunctiva bilaterally. No signs of icterus. Ears, nose, mouth and throat: There are moist mucous membranes and no oral lesions. Neck: The neck is supple. Cardiovascular: There is a regular rate and rhythm. No murmur, rub or gallop is appreciated. Respiratory: Lungs are clear to auscultation, respirations are non-labored, breath sounds are equal. No wheezes, stridor, rales, or rhonchi. Gastrointestinal: Mild tenderness lower abdomen. No rebound tenderness. No guarding. No CVA tenderness. Musculoskeletal: Normal ROM, no tenderness. Strength 5/5. Sensation intact. Neurological: A&O x 3. CN II-XII intact, There are no obvious motor or sensory deficits. Coordination appears grossly intact. Speech is normal. Skin: Skin is warm and dry and no rashes or lesions are noted. Psychiatric: Cooperative, appropriate mood & affect, normal judgment. Limitations: no limitations Course Vital Signs 12/24/17 12/24/17 15:52 18:20 Temperature 98.6 F Pulse Rate 92 82 Respiratory 20 20 Rate Blood Pressure 137/96 144/85 O2 Sat by Pulse 98 98 Oximetry Medical Decision Making - Medical Decision Making Patient's labs been reviewed. Patient did have elevated reviewed. This was seen on previous labs. Patient does have a history of cholecystectomy. Had a ultrasound back in September of this year showing evidence for liver disease. Patient's had multiple emergency room visits this year greater than 40 visits in 4 months. Patient has been seen by psych services. Most recently just 2 days ago and had the mobile crisis unit to his house. Patient case was discussed with the physician Dr. Morris will admit the patient and he will be placed in observation and will consult social work. - Lab Data Result diagrams: 12/24/17 18:09 12/24/17 18:09 Lab Results 12/24/17 12/24/17 12/24/17 Range/Units 18:09 18:09 18:09 WBC 6.8 (3.8-10.6) k/uL RBC 4.37 (4.30-5.90) m/uL Hgb 12.6 L (13.0-17.5) gm/dL Hct 35.1 L (39.0-53.0) % MCV 80.2 (80.0-100.0) fL MCH 28.7 (25.0-35.0) pg MCHC 35.8 (31.0-37.0) g/dL RDW 14.0 (11.5-15.5) % Plt Count 153 (150-450) k/uL Neutrophils % 60 % Lymphocytes % 32 % Monocytes % 4 % Eosinophils % 2 % Basophils % 1 % Neutrophils # 4.1 (1.3-7.7) k/uL Lymphocytes # 2.2 (1.0-4.8) k/uL Monocytes # 0.3 (0-1.0) k/uL Eosinophils # 0.1 (0-0.7) k/uL Basophils # 0.1 (0-0.2) k/uL Hyperchromasia Slight Poikilocytosis Moderate Sodium 141 (137-145) mmol/L Potassium 4.0 (3.5-5.1) mmol/L Chloride 105 (98-107) mmol/L Carbon Dioxide 22 (22-30) mmol/L Anion Gap 14 mmol/L BUN 9 (9-20) mg/dL Creatinine 0.72 (0.66-1.25) mg/dL Est GFR (CKD-EPI)AfAm >90 (>60 ml/min/1.73 sqM) Est GFR (CKD-EPI)NonAf >90 (>60 ml/min/1.73 sqM) Glucose 114 H (74-99) mg/dL Calcium 10.0 (8.4-10.2) mg/dL Total Bilirubin 1.7 H (0.2-1.3) mg/dL AST 30 (17-59) U/L ALT 36 (21-72) U/L Alkaline Phosphatase 92 (38-126) U/L Total Protein 6.4 (6.3-8.2) g/dL Albumin 4.3 (3.5-5.0) g/dL Amylase 44 (30-110) U/L Lipase 116 (23-300) U/L Urine Color Light Yellow Urine Appearance Clear (Clear) Urine pH 7.0 (5.0-8.0) Ur Specific [place] 1.004 (1.001-1.035) Urine Protein Negative (Negative) Urine Glucose (UA) Negative (Negative) Urine Ketones Negative (Negative) Urine Blood Negative (Negative) Urine Nitrite Negative (Negative) Urine Bilirubin Negative (Negative) Urine Urobilinogen <2.0 (<2.0) mg/dL Ur Leukocyte Esterase Negative (Negative) Disposition Clinical Impression: Abdominal pain Disposition: HOME SELF-CARE Condition: Good Instructions: Abdominal Pain (ED) Is patient prescribed a controlled substance at d/c from ED?: No Referrals: Brandon Mcpherson MD [Primary Care Provider] - 1-2 days Time of Disposition: 19:10
[2017-12-24 18:19] LABS: Basophils # (A) 0.1 k/uL (0-0.2); Basophils % (A) 1 %; Eosinophils # (A) 0.1 k/uL (0-0.7); Eosinophils % (A) 2 %; HCT 35.1 % (39.0-53.0); HGB 12.6 gm/dL (13.0-17.5); Hyperchromasia Slight; Lymphocytes # (A) 2.2 k/uL (1.0-4.8); Lymphocytes % (A) 32 %; MCH 28.7 pg (25.0-35.0); MCHC 35.8 g/dL (31.0-37.0); MCV 80.2 fL (80.0-100.0); Mean Platelet Volume 8.3; Monocytes # (A) 0.3 k/uL (0-1.0); Monocytes % (A) 4 %; Neutrophils # (A) 4.1 k/uL (1.3-7.7); Neutrophils % (A) 60 %; Platelet Count 153 k/uL (150-450); Poikilocytosis Moderate; RBC 4.37 m/uL (4.30-5.90); WBC 6.8 k/uL (3.8-10.6)
[2017-12-24 18:25] LABS: Appearance,Urine Clear (Clear); Bilirubin,Urine Negative (Negative); Blood,Urine Negative (Negative); Color,Urine Light Yellow; Glucose,Urine (UA) Negative (Negative); Ketones,Urine Negative (Negative); Leukocyte Esterase,Urine Negative (Negative); Nitrite,Urine Negative (Negative); Protein,Urine Negative (Negative); Specific Gravity,Urine 1.004 (1.001-1.035); Urobilinogen,Urine <2.0 mg/dL (<2.0)
[2017-12-24 18:29] LABS: ALT 36 U/L (21-72); AST 30 U/L (17-59); Albumin 4.3 g/dL (3.5-5.0); Alkaline Phosphatase 92 U/L (38-126); Amylase 44 U/L (30-110); Anion Gap 14 mmol/L; Blood Urea Nitrogen 9 mg/dL (9-20); Carbon Dioxide 22 mmol/L (22-30); Chloride 105 mmol/L (98-107); Glucose 114 mg/dL (74-99); Lipase 116 U/L (23-300); Sodium 141 mmol/L (137-145); Total Bilirubin 1.7 mg/dL (0.2-1.3); Total Protein 6.4 g/dL (6.3-8.2)
--- NOTE | 2017-12-24 18:35 | XR ---
EXAMINATION TYPE: XR KUB DATE OF EXAM: 12/24/2017 COMPARISON: 12/20/2017 HISTORY: Abdominal pain TECHNIQUE: There is no sign of intestinal obstruction or pneumoperitoneum. Fecal pattern is normal. L dolly bases are clear. There are no pathologic calcifications over the kidneys. FINDINGS: Nonacute abdomen. No change. IMPRESSION:
[2017-12-24] MEDS ORDERED: ONDANSETRON 4 MG/2 ML VIAL IVP PRN (19:10)
[2017-12-24] MEDS ORDERED: LORazepam 2 MG/ML INJ IV PRN (19:10)
[2017-12-24] MEDS: ACETAMINOPHEN TAB 325 MG TAB PO PRN (20:32)
[2017-12-24 21:38] LABS: Glucose,Whole Blood 127 mg/dL (75-99)
[2017-12-24] MEDS ORDERED: HYDROcodone/APAP 5-325MG 1 EACH TAB PO PRN (21:48)
[2017-12-24] MEDS: HYOSCYAMINE SULFATE 0.125 MG TAB PO SCH (22:48)
[2017-12-24] MEDS: SIMETHICONE 80 MG CHEWABLE PO SCH (22:49)
[2017-12-24] MEDS: DIVALPROEX 500 MG TABLET.DR PO SCH (22:50)
[2017-12-25] MEDS: HYOSCYAMINE SULFATE 0.125 MG TAB PO SCH ×6 (02:46→20:54)
[2017-12-25] MEDS: ACETAMINOPHEN TAB 325 MG TAB PO PRN (02:54)
[2017-12-25 07:50] LABS: Glucose,Whole Blood 124 mg/dL (75-99)
[2017-12-25] MEDS: SIMETHICONE 80 MG CHEWABLE PO SCH ×4 (07:55→20:54)
[2017-12-25] MEDS: HEPARIN SODIUM,PORCINE 5,000 UNIT/ML 1 ML VIAL SQ SCH ×2 (07:55→20:53)
[2017-12-25] MEDS: POLYETHYLENE GLYCOL 3350 17 GM POWD.PACK PO SCH (07:55)
[2017-12-25] MEDS: DIVALPROEX 500 MG TABLET.DR PO SCH ×3 (07:56→20:54)
[2017-12-25] MEDS: LISINOPRIL 10 MG TAB PO SCH (07:56)
[2017-12-25] MEDS: TAMSULOSIN 0.4 MG CAP.ER.24H PO SCH (07:56)
[2017-12-25] MEDS: LORATADINE 10 MG TAB PO SCH (07:56)
[2017-12-25] MEDS: PANTOPRAZOLE 40 MG TABLET PO SCH ×2 (07:57→17:28)
[2017-12-25] MEDS: FERROUS SULFATE 325 MG TAB PO SCH (07:58)
[2017-12-25 08:21] LABS: Basophils % (A) 1 %; Eosinophils # (A) 0.1 k/uL (0-0.7); Eosinophils % (A) 1 %; HCT 33.4 % (39.0-53.0); HGB 11.4 gm/dL (13.0-17.5); Lymphocytes # (A) 1.3 k/uL (1.0-4.8); Lymphocytes % (A) 26 %; MCH 27.9 pg (25.0-35.0); MCHC 34.2 g/dL (31.0-37.0); MCV 81.6 fL (80.0-100.0); Mean Platelet Volume 8.3; Monocytes # (A) 0.2 k/uL (0-1.0); Monocytes % (A) 4 %; Neutrophils # (A) 3.5 k/uL (1.3-7.7); Neutrophils % (A) 67 %; Platelet Count 129 k/uL (150-450); Poikilocytosis Slight; RBC 4.09 m/uL (4.30-5.90); RDW 13.9 % (11.5-15.5); WBC 5.2 k/uL (3.8-10.6)
[2017-12-25 08:43] LABS: Anion Gap 11 mmol/L; Blood Urea Nitrogen 12 mg/dL (9-20); Calcium 9.5 mg/dL (8.4-10.2); Carbon Dioxide 23 mmol/L (22-30); Chloride 106 mmol/L (98-107); Glucose 109 mg/dL (74-99); Potassium 4.4 mmol/L (3.5-5.1); Sodium 140 mmol/L (137-145)
[2017-12-25] MEDS ORDERED: MORPHINE SULFATE 4 MG/0.8 ML SYRINGE (INJ) IVP PRN (10:09)
[2017-12-25] MEDS: IOPAMIDOL-300 CONTRAST 30 ML VIAL (ORAL USE) PO PRN ×2 (10:57→12:08)
--- NOTE | 2017-12-25 11:33 | HP ---
HISTORY AND PHYSICAL DATE OF SERVICE: 12/25/2017 CHIEF COMPLAINT: Abdominal pain. HISTORY OF PRESENT ILLNESS: This 47-year-old gentleman with a past medical history of asthma, diabetes, GERD , GI bleed, hypertension, DJD, seizure disorder being followed by Dr. Mcpherson in the outpatient setting previously had GI bleed. The patient apparently had a colonoscopy which resulted in post polyp bleeding and blood transfusion. Patient went home and currently patient complaining of severe constipation. In between, patient also had scabies attacks and was treated with local treatment, closely being followed by knitted cloth examiner also. Currently patient is complaining of abdominal pain and constipation. The patient apparently called the doctor's office and was advised to take magnesium citrate. Because of lack of improvement, severe abdominal pain, patient presented to [facility] and admitted for further evaluation and treatment. The plain x-ray KUB was done which did not show any acute abnormality. There is no history of any fever, rigors or chills. No history of headache, loss of consciousness, seizures. PAST MEDICAL HISTORY: Asthma, diabetes mellitus, GERD, GI bleed, hypertension, DJD, seizure disorder. MEDICATIONS: Medications are home medications are: 1. Trazodone 50 mg p.o. at bedtime. 2. Gas-X 125 mg p.o. q.i.d. 3. MiraLAX 17 grams daily. 4. Omeprazole 20 mg p.o. b.i.d. 5. Iron sulfate 1 tab p.o. daily. 6. Zestril 10 mg q.a.m. 7. Lantus 45 units subcutaneous at bedtime. 8. Humalog t.i.d. 9. Levsin 0.125 mg q.4 p.r.n. 10.Depakote 500 mg p.o. t.i.d. 11.Zyrtec 10 mg daily. 12.Alfuzosin 10 mg p.o. daily. ALLERGIES: BISACODYL, GABAPENTIN, LACTULOSE, PENICILLIN, CLOZAPINE. FAMILY HISTORY: No history of any strokes or heart attack in the family. The patient has not seen his father since age of 5. SOCIAL HISTORY: Previous history of smoking. No history of current smoking or alcohol intake. REVIEW OF SYSTEMS: ENT: No diminished hearing or diminished vision. CARDIOVASCULAR SYSTEM: No angina. RESPIRATORY SYSTEM: No cough or hemoptysis. GI: As mentioned earlier. : No dysuria. NERVOUS SYSTEM: No numbness or weakness. ALLERGY/IMMUNOLOGY: No asthma or hay fever. MUSCULOSKELETAL: As mentioned earlier. HEMATOLOGY/ONCOLOGY: No history of anemia. ENDOCRINE: Diabetes mellitus. CONSTITUTIONAL: As mentioned earlier. DERMATOLOGY: Negative. RHEUMATOLOGY: Negative. PSYCHIATRY: As mentioned earlier. PHYSICAL EXAMINATION: The patient is alert and oriented x3. Pulse 78, blood pressure 130/73, respirations 16, temperature 97.8, pulse ox 98% on room air. HEENT: Conjunctivae normal. Herpes labialis present. NECK: No jugular venous distention. CARDIOVASCULAR: S1 and S2 muffled. RESPIRATORY: Breath sounds diminished at the bases. No rhonchi. No crackles. ABDOMEN: Soft, mildly obese, mild diffuse discomfort. No guarding. No rigidity. No mass palpable. No ascites. No hepatosplenomegaly. LEGS: No edema, no swelling. NERVOUS SYSTEM: Higher functions as mentioned earlier, moves all 4 limbs, no focal motor or sensory deficits. LYMPHATICS: No lymphadenopathy of the neck, axillae or groin. SKIN: Diffuse skin lesions present. Dry skin present. LABS: WBC 5.2, hemoglobin 11.4, platelet 129. Glucose 109. ASSESSMENT: 1. Diffuse abdominal pain for evaluation possibly secondary to constipation. 2. Anemia normocytic, etiology undetermined. 3. Mild thrombocytopenia. 4. History of diabetes mellitus. 5. History of asthma. 6. History of gastroesophageal reflux disease. 7. Hypertension. 8. History of degenerative joint disease. 9. Seizure disorder. 10.Sleep apnea. 11.History of cholecystectomy. 12.History attention deficit disorder, attention deficit hyperactivity disorder. 13.History of schizophrenia, depression. 14.Remote history of alcohol abuse. 15.History of nicotine dependence. RECOMMENDATIONS AND DISCUSSION: This 47-year-old gentleman who presented with multiple complex medical issues. At this time I recommend to continue current medications, continue symptomatic treatment. I recommend full liquids, CT scan of the abdomen and pelvis with only oral contrast, no IV contrast. Otherwise resume the home medications. Accu-Cheks a.c. and at bedtime, insulin scale. Symptomatic treatment. Prognosis guarded because of multiple complex medical issues. Discussed with the patient and I would recommend the patient to follow up closely with Dr. Mcpherson and Dermatology in the outpatient setting. A copy of dictation will be forwarded to Dr. Mcpherson who the primary physician. MMLAMINL / IJN: [id number] / POLI
[2017-12-25 11:52] LABS: Glucose,Whole Blood 146 mg/dL (75-99)
[2017-12-25] MEDS: INSULIN ASPART 100 UNIT/ML 1 ML 10 ML VIAL SQ SCH ×3 (12:38→20:54)
[2017-12-25 12:52] VITALS: BMI 37.1
--- NOTE | 2017-12-25 12:52 | P.CONS ---
History of Present Illness - Reason for Consult Consult date: 12/25/17 Abdominal pain Requesting physician: Pino Mckeon - History of Present Illness 47-year-old gentleman with a history of schizophrenia, seizure disorder, multiple hospitalizations for abdominal pain, chronic constipation recently underwent a colonoscopy by Dr. Evangelista on 12/03/2017 with snare sigmoid polypectomy. He subsequently developed an acute lower GI bleed and was admitted on 12/04/2017 and underwent re-surveillance colonoscopy with findings of a superficial ulcerated area at the site of recent polypectomy status post Endo Clip placement. Hemoglobin during that admission was as low as 7 he received 3 units of blood, iron supplementation and discharge hemoglobin was 7.9. Admitted with persistent generalized abdominal pain. Admission hemoglobin 12.6 presently 11.4. BUN 9. Denies hematemesis but reports scant amount of red blood on toilet tissue only not mixed in stool. He's reporting constipation. Denies fever or chills. No vomiting. Per nursing no witnessed episodes of hematochezia or melena. CT abdomen and pelvis has been requested. Review of Systems Constitutional: Denies fever, chills, sweats, weight gain, or loss. HEENT: Negative for migraines, blurred vision or loss, earaches, drainage, tinnitus, oral mucosal lesions, dysphagia, or odynophagia. Cardiac: History of hypertension. Negative for chest pain, arrhythmias, or palpitation. Respiratory: History of asthma. Negative for shortness of breath, hemoptysis, cough, or sputum production. Gastrointestinal: See HPI for pertinent findings. Genitourinary: Negative for hematuria, urgency, frequency, polyuria, dysuria, or penile discharge. Musculoskeletal: Negative for muscle aches, swelling, arthritis, and arthralgias. Neurologic: History of seizure disorder. Negative for stroke or TIA. Endocrine: Negative for thyroid problems. Skin: Negative for rash or itching. Psychiatric: Negative history for depression and anxiety Past Medical History Past Medical History: Asthma, Diabetes Mellitus, GERD/Reflux, GI Bleed, Hypertension, Osteoarthritis (OA), Seizure Disorder, Skin Disorder, Sleep Apnea/ CPAP/BIPAP Additional Past Medical History / Comment(s): ,LAST SEIZURE 28 YRS AGO. chronic back/neck pain. DOES NOT USE CPAP. SPINAL STENOSIS, DDD IN BACK, SCOLIOSIS, IBS , psoriasis, frequent urination, chronic diarrhea/constipation issues, schizophrenia,depression, add/adhd. History of Any Multi-Drug Resistant Organisms: None Reported Past Surgical History: Cholecystectomy, Heart Catheterization, Tonsillectomy Additional Past Surgical History / Comment(s): PAIN PROCEDURES, colonscopy with polyp removal 12/03/17 with repair and transfusion Past Anesthesia/Blood Transfusion Reactions: Motion Sickness Smoking Status: Former smoker - Past Family History Father History Unknown: Yes Family Medical History: Unable to Obtain Additional Family Medical History / Comment(s): pt has'nt seen his father since he was age 5 Mother Family Medical History: No Reported History Additional Family Medical History / Comment(s): Mother at age 55yrs of [place]. Medications and Allergies Home Medications Medication Instructions Recorded Confirmed Type Lisinopril [Zestril] 10 mg PO QAM 06/06/14 12/24/17 History INSULIN LISPRO (HumaLOG) [humaLOG] See Protocol SQ AC-TID 08/16/15 12/24/17 History Divalproex Sodium [Depakote] 500 mg PO TID 01/10/17 12/24/17 History traZODone HCL 50 mg PO HS 11/08/17 12/24/17 History Cetirizine HCl [Zyrtec] 10 mg PO DAILY 11/17/17 12/24/17 History Simethicone [Gas-X] 125 mg PO QID #10 capsule 11/27/17 12/24/17 Rx Hyoscyamine Sulfate [Levsin] 0.125 mg PO Q4H 11/29/17 12/24/17 History Omeprazole 20 mg PO BID 11/30/17 12/24/17 History Alfuzosin HCl [Alfuzosin HCl ER] 10 mg PO DAILY 12/04/17 12/24/17 History Polyethylene Glycol 3350 [Miralax] 17 gm PO DAILY 12/04/17 12/24/17 History Insulin Glargine [Lantus] 45 unit SQ HS #0 12/07/17 12/24/17 Rx Ferrous Fumarate/Ascorbic Acid 1 tab PO DAILY 12/10/17 12/24/17 History [Doris-Sequels 65-25 mg Caplet] Allergies Allergy/AdvReac Type Severity Reaction Status Date / Time bisacodyl Allergy dizziness Verified 12/24/17 17:00 [From Dulcolax (bisacodyl)] gabapentin Allergy seizures Verified 12/24/17 17:00 lactulose Allergy Rash/Hives Verified 12/24/17 17:00 Penicillins Allergy Unknown Verified 12/24/17 17:00 Childhood clozapine [From Clozaril] AdvReac Severe Aggression Verified 12/24/17 17:00 Physical Exam Vitals: Vital Signs Temp Pulse Pulse Resp BP BP Pulse Ox 12/25/17 07:28 97.8 F 78 16 130/73 98 12/24/17 22:00 97.6 F 73 20 146/84 97 12/24/17 21:31 98.3 F 72 17 132/78 98 12/24/17 18:20 82 20 144/85 98 12/24/17 15:52 98.6 F 92 20 137/96 98 Intake and Output 12/24/17 12/25/17 12/25/17 22:59 06:59 14:59 Intake Total 780 Balance 780 Intake: Oral 780 Other: Voiding Method Toilet Toilet # Voids 2 Weight 104.326 kg General appearance: The patient is alert, oriented, in no acute distress. HET: Head is normocephalic and atraumatic. Pupils are equal and reactive. Oropharynx is clear without lesions. Neck: Supple without lymphadenopathy. Trachea midline. Heart: S1 S2. Regular rate and rhythm. Lungs: No crackles or wheezes are heard. Abdomen: Soft, mild tenderness across mid abdomen, nondistended with bowel sounds. No peritoneal signs. No palpable organomegaly or masses. Extremities: Normal skin color and turgor. No cyanosis, rash, ulceration, clubbing, or edema. Radial and pedal pulses are 2/4 bilaterally. Neurological: No focal deficits. Strength and sensation are grossly intact. Results CBC & Chem 7: 12/26/17 06:57 12/26/17 06:57 Labs: Abnormal Lab Results - Last 24 Hours (Table) 12/24/17 12/24/17 12/24/17 Range/Units 18:09 18:09 21:37 RBC (4.30-5.90) m/uL Hgb 12.6 L (13.0-17.5) gm/dL Hct 35.1 L (39.0-53.0) % Plt Count (150-450) k/uL Glucose 114 H (74-99) mg/dL POC Glucose (mg/dL) 127 H (75-99) mg/dL Total Bilirubin 1.7 H (0.2-1.3) mg/dL 12/25/17 12/25/17 12/25/17 Range/Units 07:29 07:41 07:41 RBC 4.09 L (4.30-5.90) m/uL Hgb 11.4 L (13.0-17.5) gm/dL Hct 33.4 L (39.0-53.0) % Plt Count 129 L (150-450) k/uL Glucose 109 H (74-99) mg/dL POC Glucose (mg/dL) 124 H (75-99) mg/dL Total Bilirubin (0.2-1.3) mg/dL 12/25/17 Range/Units 11:39 RBC (4.30-5.90) m/uL Hgb (13.0-17.5) gm/dL Hct (39.0-53.0) % Plt Count (150-450) k/uL Glucose (74-99) mg/dL POC Glucose (mg/dL) 146 H (75-99) mg/dL Total Bilirubin (0.2-1.3) mg/dL CT scan - abdomen: pending Assessment and Plan (1) Abdominal pain Narrative/Plan: 47-year-old male with a history of chronic constipation abdominal pain with multiple hospitalizations status post recent colonoscopy for 12/03/2017 for evaluation of constipation findings of sigmoid polypectomy status post removal with subsequent development of post polypectomy bleeding status post re surveillance colonoscopy with Endo Clip placement. Presently patient is reporting diffuse nonspecific abdominal pain with scant amount of blood on tissue only, present hemoglobin is 11.4. Possible exacerbation of constipation. Current Visit: Yes Status: Acute Code(s): R10.9 - UNSPECIFIED ABDOMINAL PAIN SNOMED Code(s): 01264617 Plan: 1. CT abdomen and pelvis. Further recommendations after review of CT. 2. CBC monitoring. 3. Full liquid diet. Thank you for this kind referral and the opportunity to participate in the care of your patient. This consultation was discussed with Dr. Montanez. The impression and plan of care have been directed as dictated.
--- NOTE | 2017-12-25 13:53 | CT ---
EXAMINATION TYPE: CT abdomen pelvis wo con DATE OF EXAM: 12/25/2017 COMPARISON: 11/29/2017 HISTORY: Generalized abdominal pain. CT DLP: 1237 mGycm Automated exposure control for dose reduction was used. TECHNIQUE: Helical acquisition of images was performed from the lung bases through the pelvis. FINDINGS: LUNG BASES: 2 mm pulmonary nodule seen at the left lung base peripherally on series 4 image 13. Calci fied 2 mm pulmonary nodules noted within the right lung base on image 19. This nodule is benign. LIVER/GB: Unenhanced liver is of unremarkable morphology. Cholecystectomy clips reside within the gal lbladder fossa. Low-density the liver approaches criteria for hepatic steatosis but does not meet cri teria. PANCREAS: No significant abnormality is seen. SPLEEN: The spleen is mildly enlarged measuring 14.0 cm in craniocaudal dimension. ADRENALS: No significant abnormality is seen. KIDNEYS: No evidence of hydronephrosis or nephrolithiasis. No ureteral calculi. FREE AIR: No free air is visualized ADENOPATHY: No greater than 1 cm short axis lymph nodes are seen within the abdomen or pelvis. REPRODUCTIVE ORGANS: There is minimal heterogeneity of the prostate gland. URINARY BLADDER: Urinary bladder is distended to the level of the umbilicus. OSSEOUS STRUCTURES: There is grade 1 anterolisthesis of L5 on S1 with associated degenerative change s and bilateral pars interarticularis defects. BOWEL: There is mild dilatation of the rectum measuring up to 6.3 cm with a large residual fecal bal l. No proximal obstruction is seen as there is no proximal dilated bowel. No pericolonic fat strandin g is identified. The appendix is air-filled and within normal limits. OTHER: Subcutaneous fat stranding is seen within the anterior abdomen that may relate to prior subcut aneous injections or trauma. IMPRESSION: 1. MINIMALLY DILATED RECTUM WITH RECTAL FECAL BALL MEASURING 6.3 CM. NO PROXIMAL OBSTRUCTION. 2. MARKED DISTENTION OF THE URINARY BLADDER THE LEVEL OF THE UMBILICUS. CORRELATE FOR URINARY BLADDER OUTLET OBSTRUCTION. 3. NO CT EVIDENCE OF APPENDICITIS. 4. GRADE 1 ANTEROLISTHESIS OF L5 ON S1 WITH BILATERAL PARS INTERARTICULARIS DEFECTS AND ASSOCIATED DE GENERATIVE CHANGE. 5. SPLENOMEGALY. 6. 2 MM LEFT BASILAR PULMONARY NODULE. FURTHER EVALUATION WITH NONEMERGENT CHEST CT OR FOLLOW-UP CT T HORAX IN ONE YEAR COULD BE PERFORMED.
[2017-12-25] MEDS ORDERED: MORPHINE ORAL SOLN 10 MG/5 ML CUP PO PRN (14:00)
[2017-12-25 16:56] LABS: Glucose,Whole Blood 133 mg/dL (75-99)
[2017-12-25 18:41] LABS: Hemoglobin A1C 4.4 % (4.0-6.0)
[2017-12-25 20:25] LABS: Glucose,Whole Blood 146 mg/dL (75-99)
[2017-12-25] MEDS ORDERED: INSULIN DETEMIR 100 UNIT/ML 10 ML VIAL SQ SCH (21:00)
[2017-12-25] MEDS ORDERED: traZODone HCL 50 MG TAB PO SCH (21:00)
[2017-12-25 23:17] VITALS: TEMP 97.8
[2017-12-26] MEDS: HYOSCYAMINE SULFATE 0.125 MG TAB PO SCH ×3 (03:12→09:24)
[2017-12-26 07:09] LABS: Basophils % (A) 1 %; Eosinophils # (A) 0.1 k/uL (0-0.7); Eosinophils % (A) 2 %; HCT 34.4 % (39.0-53.0); HGB 11.8 gm/dL (13.0-17.5); Hyperchromasia Slight; Lymphocytes % (A) 38 %; MCH 28.3 pg (25.0-35.0); MCHC 34.3 g/dL (31.0-37.0); MCV 82.5 fL (80.0-100.0); Mean Platelet Volume 7.7; Monocytes # (A) 0.2 k/uL (0-1.0); Monocytes % (A) 4 %; Neutrophils # (A) 2.9 k/uL (1.3-7.7); Neutrophils % (A) 54 %; Platelet Count 128 k/uL (150-450); Poikilocytosis Moderate; RBC 4.17 m/uL (4.30-5.90); RDW 13.8 % (11.5-15.5); WBC 5.4 k/uL (3.8-10.6)
[2017-12-26 07:29] LABS: Anion Gap 9 mmol/L; Blood Urea Nitrogen 10 mg/dL (9-20); Calcium 9.5 mg/dL (8.4-10.2); Carbon Dioxide 28 mmol/L (22-30); Chloride 104 mmol/L (98-107); Glucose 79 mg/dL (74-99); Potassium 4.1 mmol/L (3.5-5.1); Sodium 141 mmol/L (137-145)
[2017-12-26 07:33] LABS: Glucose,Whole Blood 90 mg/dL (75-99)
[2017-12-26 08:07] VITALS: BP 131/74; PULSE 59; RESP 20
[2017-12-26] MEDS: POLYETHYLENE GLYCOL 3350 17 GM POWD.PACK PO SCH (08:10)
[2017-12-26] MEDS: TAMSULOSIN 0.4 MG CAP.ER.24H PO SCH (08:10)
[2017-12-26] MEDS: SIMETHICONE 80 MG CHEWABLE PO SCH ×2 (08:10→12:33)
[2017-12-26] MEDS: LORATADINE 10 MG TAB PO SCH (08:10)
[2017-12-26] MEDS: HEPARIN SODIUM,PORCINE 5,000 UNIT/ML 1 ML VIAL SQ SCH (08:11)
[2017-12-26] MEDS: DIVALPROEX 500 MG TABLET.DR PO SCH (08:11)
[2017-12-26] MEDS: LISINOPRIL 10 MG TAB PO SCH (08:11)
[2017-12-26] MEDS: INSULIN ASPART 100 UNIT/ML 1 ML 10 ML VIAL SQ SCH ×2 (08:11→11:37)
[2017-12-26] MEDS: PANTOPRAZOLE 40 MG TABLET PO SCH (08:11)
[2017-12-26] MEDS ORDERED: MAGNESIUM HYDROXIDE 2,400 MG/10 ML CUP PO PRN (09:34)
[2017-12-26] MEDS ORDERED: SENNOSIDES-DOCUSATE SODIUM 1 EACH TAB PO SCH (09:45)
[2017-12-26 11:33] LABS: Glucose,Whole Blood 122 mg/dL (75-99)
[2017-12-26] MEDS: FERROUS SULFATE 325 MG TAB PO SCH (11:35)
--- NOTE | 2017-12-26 11:51 | P.PN ---
Subjective Progress Note Date: 12/26/17 Principal diagnosis: Chronic abdominal pain constipation Reports constipation this morning. Tolerating diet. CT abdomen and pelvis yesterday reported rectal fecal retention. Stool softeners laxatives adjusted. Hemoglobin 11.8. White count 5.4. Afebrile. Objective - Vital Signs Vital signs: Vital Signs Temp 97.8 F 12/26/17 07:30 Pulse 59 L 12/26/17 07:30 Resp 20 12/26/17 07:30 BP 131/74 12/26/17 07:30 Pulse Ox 98 12/26/17 07:30 Intake & Output 12/25/17 12/26/17 12/26/17 18:59 06:59 18:59 Intake Total 1200 590 Balance 1200 590 Weight 104.326 kg Intake: Oral 1200 590 Other: Voiding Method Toilet Toilet Toilet # Voids 3 2 - Exam General appearance: The patient is alert, oriented, in no acute distress. HET: Head is normocephalic and atraumatic. Pupils are equal and reactive. Oropharynx is clear without lesions. Neck: Supple without lymphadenopathy. Trachea midline. Heart: S1 S2. Regular rate and rhythm. Lungs: No crackles or wheezes are heard. Abdomen: Soft, mild tenderness bilateral lower abdomen, nondistended with bowel sounds. No peritoneal signs. No palpable organomegaly or masses. Extremities: Normal skin color and turgor. No cyanosis, rash, ulceration, clubbing, or edema. Radial and pedal pulses are 2/4 bilaterally. Neurological: No focal deficits. Strength and sensation are grossly intact. - Labs CBC & Chem 7: 12/26/17 06:57 12/26/17 06:57 Labs: Abnormal Lab Results - Last 24 Hours (Table) 12/25/17 12/25/17 12/25/17 Range/Units 11:39 16:50 20:23 RBC (4.30-5.90) m/uL Hgb (13.0-17.5) gm/dL Hct (39.0-53.0) % Plt Count (150-450) k/uL POC Glucose (mg/dL) 146 H 133 H 146 H (75-99) mg/dL 12/26/17 12/26/17 Range/Units 06:57 11:31 RBC 4.17 L (4.30-5.90) m/uL Hgb 11.8 L (13.0-17.5) gm/dL Hct 34.4 L (39.0-53.0) % Plt Count 128 L (150-450) k/uL POC Glucose (mg/dL) 122 H (75-99) mg/dL Assessment and Plan (1) Abdominal pain Narrative/Plan: Suspect secondary to constipation chronic in nature. Current Visit: Yes Status: Acute Code(s): R10.9 - UNSPECIFIED ABDOMINAL PAIN SNOMED Code(s): 67889307 Plan: 1. Stool softeners adjusted. Will provide laxative magnesium citrate 1. Diet as tolerated. Ambulation encouraged. Assessment and plan a care discussed with Dr. Montanez
[2017-12-26] MEDS: MAGNESIUM CITRATE 296 ML BOTTLE PO ONE ×2 (12:33→13:01)
[2017-12-26] MEDS ORDERED: BISACODYL 5 MG TABLET.DR PO STA (13:00)
--- NOTE | 2017-12-26 19:13 | DS ---
DISCHARGE SUMMARY DATE OF SERVICE: 12/26/2017 FINAL DIAGNOSES: 1. Diffuse abdominal pain, possibly secondary to constipation, improved. 2. Anemia, normocytic. Etiology undetermined. 3. Splenomegaly on the CT scan. 4. Mild thrombocytopenia. 5. History of diabetes mellitus. 6. History of asthma. 7. Gastroesophageal reflux disease. 8. Hypertension. DISCHARGE DISPOSITION: The patient will be discharged in stable condition with guarded prognosis. HISTORY OF PRESENT ILLNESS: This 47-year-old gentleman, being followed by Dr. Brandon Mcpherson in the outpatient setting, was admitted with abdominal pain, treated symptomatically. Patient was constipated. CT scan showed some splenomegaly, needing outpatient followup. The patient also has a remote history of ETOH. The patient improved significantly. On exam, vitals are stable. CARDIOVASCULAR SYSTEM: S1, S2 muffled. ABDOMEN: Soft. NERVOUS SYSTEM: No focal deficit. DISCHARGE ADVICE AND MEDICATIONS: 1. Diet is cardiac. 2. Activity limited until followup. 3. Follow up with Dr. Brandon Mcpherson in 2 to 3 days. 4. Tylenol 650 q.6 p.r.n. 5. Alfuzosin 10 mg p.o. daily. 6. Zyrtec 10 mg daily. 7. Depakote 500 mg p.o. t.i.d. 8. Iron sulfate 1 tablet p.o. daily. 9. Levsin 0.125 mg q.4 p.r.n. 10.Lantus 45 units subcutaneously at bedtime. 11.Humalog scale. 12.Zestril 10 mg each morning. 13.Milk of Magnesia 2.4 grams p.o. b.i.d. 14.Omeprazole 20 mg p.o. b.i.d. 15.MiraLAX 17 grams daily p.r.n. 16.Senokot 2 tablets p.o. b.i.d. p.r.n. for constipation. 17.Gas-X 20 mg p.o. q.i.d. 18.Trazodone 50 mg p.o. at bedtime. MMLAMINL / BRIANN: [id number] /
== END 2017-12-26 14:05 | disposition home or self-care (01) ==
LOC: EC 15:28 → 5MS5E 20:46
PROVIDERS: ADMIT Internal Medicine; ATTEND Internal Medicine
DX: R10.84 Generalized abdominal pain (principal); D64.9 Anemia, unspecified; K59.00 Constipation, unspecified; R16.1 Splenomegaly, not elsewhere classified; D69.6 Thrombocytopenia, unspecified; E11.9 Type 2 diabetes mellitus without complications; J45.909 Unspecified asthma, uncomplicated; K21.9 Gastro-esophageal reflux disease without esophagitis; K58.9 Irritable bowel syndrome, unspecified; I10 Essential (primary) hypertension; M19.90 Unspecified osteoarthritis, unspecified site; G40.909 Epilepsy, unspecified, not intractable, without status epilepticus; G47.30 Sleep apnea, unspecified; G89.29 Other chronic pain; M54.9 Dorsalgia, unspecified; M48.00 Spinal stenosis, site unspecified; F20.9 Schizophrenia, unspecified; F32.9 Major depressive disorder, single episode, unspecified; F90.9 Attention-deficit hyperactivity disorder, unspecified type; F10.10 Alcohol abuse, uncomplicated; Z87.891 Personal history of nicotine dependence; Z79.899 Other long term (current) drug therapy; Z79.4 Long term (current) use of insulin; Z88.0 Allergy status to penicillin; Z88.8 Allergy status to other drugs, medicaments and biological substances; Z82.49 Family history of ischemic heart disease and other diseases of the circulatory system; Z90.49 Acquired absence of other specified parts of digestive tract
CPT/HCPCS: 99285 ×2; 96361 ×2; 96372 ×2; 96374; 36415; 80053; 80048 ×2; 82150; 83690; 85025 ×3; 81003; 83036; 74018; 74176; G0378 ×3; J1644 ×2; J2270

== ENCOUNTER 2017-12-28 13:33 | Emergency (ER) | payer MEDICARE, OTHER ==
--- NOTE | 2017-12-28 13:54 | ED ---
Abdominal Pain HPI - General Chief Complaint: Abdominal Pain Stated Complaint: abd pain, SOB Time Seen by Provider: 12/28/17 13:40 Source: patient Mode of arrival: ambulatory Limitations: no limitations - History of Present Illness Initial Comments: 47-year-old male patient presents to the emergency department today for evaluation of generalized abdominal pain and chest pain. Patient states that symptoms started yesterday afternoon. Patient states he has been having issues with constipation. Patient states his last bowel movement was yesterday and was hard. Patient states he has been taking his medications as directed. States that he eats a lot of fruits and vegetables and drinks water but doesn't seem to help. Patient denies any nausea, vomiting, Diarrhea, fever, chills, hematuria, dysuria, urinary frequency, urinary urgency. Patient states that he believes the whites of his eyes are more yellow than usual. Patient denies any recent rash, back pain, numbness, tingling, dizziness, weakness, headache, visual changes, or any other complaints. - Related Data Home Medications Medication Instructions Recorded Confirmed Lisinopril [Zestril] 10 mg PO QAM 06/06/14 12/28/17 INSULIN LISPRO (HumaLOG) [humaLOG] See Protocol SQ AC-TID 08/16/15 12/28/17 Divalproex Sodium [Depakote] 500 mg PO TID 01/10/17 12/28/17 traZODone HCL 50 mg PO HS 11/08/17 12/28/17 Cetirizine HCl [Zyrtec] 10 mg PO DAILY 11/17/17 12/28/17 Hyoscyamine Sulfate [Levsin] 0.125 mg PO Q4H 11/29/17 12/28/17 Omeprazole 20 mg PO BID 11/30/17 12/28/17 Alfuzosin HCl [Alfuzosin HCl ER] 10 mg PO DAILY 12/04/17 12/28/17 Polyethylene Glycol 3350 [Miralax] 17 gm PO DAILY 12/04/17 12/28/17 Ferrous Fumarate/Ascorbic Acid 1 tab PO DAILY 12/10/17 12/28/17 [Doris-Sequels 65-25 mg Caplet] Previous Rx's Medication Instructions Recorded Simethicone [Gas-X] 125 mg PO QID #10 capsule 11/27/17 Insulin Glargine [Lantus] 45 unit SQ HS #0 12/07/17 Acetaminophen Tab [Tylenol] 650 mg PO Q6HR PRN tab 12/26/17 Magnesium Hydroxide [Milk of 2,400 mg PO BID PRN #200 ml 12/26/17 Magnesia Concentrate] Sennosides-Docusate Sodium 2 each PO BID PRN #30 tab 12/26/17 [Senokot-S] Allergies Allergy/AdvReac Type Severity Reaction Status Date / Time bisacodyl Allergy dizziness Verified 12/28/17 13:37 [From Dulcolax (bisacodyl)] gabapentin Allergy seizures Verified 12/28/17 13:37 lactulose Allergy Rash/Hives Verified 12/28/17 13:37 Penicillins Allergy Unknown Verified 12/28/17 13:37 Childhood clozapine [From Clozaril] AdvReac Severe Aggression Verified 12/28/17 13:37 Review of Systems ROS Statement: Those systems with pertinent positive or pertinent negative responses have been documented in the HPI. ROS Other: All systems not noted in ROS Statement are negative. Past Medical History Past Medical History: Asthma, Diabetes Mellitus, GERD/Reflux, GI Bleed, Hypertension, Osteoarthritis (OA), Seizure Disorder, Skin Disorder, Sleep Apnea/ CPAP/BIPAP Additional Past Medical History / Comment(s): ,LAST SEIZURE 28 YRS AGO. chronic back/neck pain. DOES NOT USE CPAP. SPINAL STENOSIS, DDD IN BACK, SCOLIOSIS, IBS , psoriasis, frequent urination, chronic diarrhea/constipation issues, schizophrenia,depression, add/adhd. History of Any Multi-Drug Resistant Organisms: None Reported Past Surgical History: Cholecystectomy, Heart Catheterization, Tonsillectomy Additional Past Surgical History / Comment(s): PAIN PROCEDURES, colonscopy with polyp removal 12/03/17 with repair and transfusion Past Anesthesia/Blood Transfusion Reactions: Motion Sickness Past Psychological History: ADD/ADHD, Schizophrenia, Depression, Schizophrenia Smoking Status: Former smoker Past Alcohol Use History: None Reported Past Drug Use History: None Reported - Past Family History Father History Unknown: Yes Family Medical History: Unable to Obtain Additional Family Medical History / Comment(s): pt has'nt seen his father since he was age 5 Mother Family Medical History: No Reported History Additional Family Medical History / Comment(s): Mother at age 55yrs of [place]. General Exam Limitations: no limitations General appearance: alert, in no apparent distress, other (This is a well- developed, well-nourished adult male patient no acute distress. Vital signs upon presentation are temperature 98.7F, pulse 87, respirations 16, blood pressure 130/86, pulse ox 99% on room air.) Eye exam: Present: normal appearance, PERRL, EOMI. Absent: scleral icterus, conjunctival injection, periorbital swelling ENT exam: Present: normal exam, normal oropharynx, mucous membranes moist Respiratory exam: Present: normal lung sounds bilaterally. Absent: respiratory distress, wheezes, rales, rhonchi, stridor Cardiovascular Exam: Present: regular rate, normal rhythm, normal heart sounds. Absent: systolic murmur, diastolic murmur, rubs, gallop, clicks GI/Abdominal exam: Present: soft, normal bowel sounds. Absent: distended, tenderness, guarding, rebound, rigid Neurological exam: Present: alert, oriented X3, CN II-XII intact Psychiatric exam: Present: normal affect, normal mood Skin exam: Present: warm, dry, intact, normal color. Absent: rash Course Vital Signs 12/28/17 12/28/17 13:34 14:50 Temperature 98.7 F 98.4 F Pulse Rate 87 60 Respiratory 16 20 Rate Blood Pressure 130/86 131/74 O2 Sat by Pulse 99 99 Oximetry Medical Decision Making - Medical Decision Making 47-year-old male patient presents to emergency department today for evaluation of abdominal pain and chest pain. Patient presents to the emergency department quite frequently with similar complaints. Labs reviewed and are unremarkable. KUB x-ray of the abdomen was obtained and showed overall nonobstructive bowel gas pattern, possible diarrhea, or possible mild ileus. Did discuss findings with the patient. He is instructed to continue taking his medications as directed. Instructed to follow-up with his primary care physician for further evaluation and possible referral to GI specialty. Is instructed to return here immediately for any new, worsening, or concerning symptoms. He verbalizes understanding and agrees with this plan. - Lab Data Result diagrams: 12/28/17 14:00 12/28/17 14:00 Lab Results 12/28/17 12/28/17 12/28/17 Range/Units 14:00 14:00 14:00 WBC 4.2 (3.8-10.6) k/uL RBC 4.25 L (4.30-5.90) m/uL Hgb 11.7 L (13.0-17.5) gm/dL Hct 34.3 L (39.0-53.0) % MCV 80.8 (80.0-100.0) fL MCH 27.5 (25.0-35.0) pg MCHC 34.1 (31.0-37.0) g/dL RDW 13.6 (11.5-15.5) % Plt Count 120 L (150-450) k/uL Neutrophils % 58 % Lymphocytes % 33 % Monocytes % 6 % Eosinophils % 2 % Basophils % 1 % Neutrophils # 2.4 (1.3-7.7) k/uL Lymphocytes # 1.4 (1.0-4.8) k/uL Monocytes # 0.2 (0-1.0) k/uL Eosinophils # 0.1 (0-0.7) k/uL Basophils # 0.0 (0-0.2) k/uL Poikilocytosis Slight Sodium 141 (137-145) mmol/L Potassium 4.4 (3.5-5.1) mmol/L Chloride 104 (98-107) mmol/L Carbon Dioxide 26 (22-30) mmol/L Anion Gap 11 mmol/L BUN 12 (9-20) mg/dL Creatinine 0.83 (0.66-1.25) mg/dL Est GFR (CKD-EPI)AfAm >90 (>60 ml/min/1.73 sqM) Est GFR (CKD-EPI)NonAf >90 (>60 ml/min/1.73 sqM) Glucose 118 H (74-99) mg/dL Calcium 9.6 (8.4-10.2) mg/dL Total Bilirubin 1.2 (0.2-1.3) mg/dL AST 40 (17-59) U/L ALT 41 (21-72) U/L Alkaline Phosphatase 72 (38-126) U/L Troponin I (0.000-0.034) ng/mL Total Protein 6.0 L (6.3-8.2) g/dL Albumin 3.9 (3.5-5.0) g/dL Amylase 38 (30-110) U/L Lipase 76 (23-300) U/L Urine Color Yellow Urine Appearance Clear (Clear) Urine pH 7.0 (5.0-8.0) Ur Specific [place] 1.014 (1.001-1.035) Urine Protein Negative (Negative) Urine Glucose (UA) Negative (Negative) Urine Ketones Negative (Negative) Urine Blood Negative (Negative) Urine Nitrite Negative (Negative) Urine Bilirubin Negative (Negative) Urine Urobilinogen <2.0 (<2.0) mg/dL Ur Leukocyte Esterase Negative (Negative) 12/28/17 Range/Units 14:00 WBC (3.8-10.6) k/uL RBC (4.30-5.90) m/uL Hgb (13.0-17.5) gm/dL Hct (39.0-53.0) % MCV (80.0-100.0) fL MCH (25.0-35.0) pg MCHC (31.0-37.0) g/dL RDW (11.5-15.5) % Plt Count (150-450) k/uL Neutrophils % % Lymphocytes % % Monocytes % % Eosinophils % % Basophils % % Neutrophils # (1.3-7.7) k/uL Lymphocytes # (1.0-4.8) k/uL Monocytes # (0-1.0) k/uL Eosinophils # (0-0.7) k/uL Basophils # (0-0.2) k/uL Poikilocytosis Sodium (137-145) mmol/L Potassium (3.5-5.1) mmol/L Chloride (98-107) mmol/L Carbon Dioxide (22-30) mmol/L Anion Gap mmol/L BUN (9-20) mg/dL Creatinine (0.66-1.25) mg/dL Est GFR (CKD-EPI)AfAm (>60 ml/min/1.73 sqM) Est GFR (CKD-EPI)NonAf (>60 ml/min/1.73 sqM) Glucose (74-99) mg/dL Calcium (8.4-10.2) mg/dL Total Bilirubin (0.2-1.3) mg/dL AST (17-59) U/L ALT (21-72) U/L Alkaline Phosphatase (38-126) U/L Troponin I <0.012 (0.000-0.034) ng/mL Total Protein (6.3-8.2) g/dL Albumin (3.5-5.0) g/dL Amylase (30-110) U/L Lipase (23-300) U/L Urine Color Urine Appearance (Clear) Urine pH (5.0-8.0) Ur Specific [place] (1.001-1.035) Urine Protein (Negative) Urine Glucose (UA) (Negative) Urine Ketones (Negative) Urine Blood (Negative) Urine Nitrite (Negative) Urine Bilirubin (Negative) Urine Urobilinogen (<2.0) mg/dL Ur Leukocyte Esterase (Negative) - EKG Data -: EKG Interpreted by Me EKG Comments: EKG obtained at 1412 shows normal sinus rhythm with a ventricular rate of 61, UT interval 180, QRS duration 112, QT 404, QTC 406. No evidence of ST elevation or depression. - Radiology Data Radiology results: report reviewed, image reviewed KUB x-ray of the abdomen shows lung bases are clear. No evidence for free intraperitoneal air. No dilated bowel. Scattered small air-fluid levels in the colon with minimal stool. Cholecystectomy clips. Impression by Dr. Smith shows no evidence of bowel obstruction or free intraperitoneal air. Scattered small colonic air-fluid levels could represent enteritis with good stool or mild ileus. Disposition Clinical Impression: Abdominal pain, Chest pain Disposition: HOME SELF-CARE Condition: Good Instructions: Chest Pain (ED), Abdominal Pain (ED) Additional Instructions: Follow-up she primary care physician for recheck in 1-2 days. Return here immediately for any new, worsening, or concerning symptoms. Is patient prescribed a controlled substance at d/c from ED?: No Referrals: Brandon Mcpherson MD [Primary Care Provider] - 1-2 days Time of Disposition: 14:57
[2017-12-28 14:14] LABS: Basophils % (A) 1 %; Eosinophils # (A) 0.1 k/uL (0-0.7); Eosinophils % (A) 2 %; HCT 34.3 % (39.0-53.0); HGB 11.7 gm/dL (13.0-17.5); Lymphocytes # (A) 1.4 k/uL (1.0-4.8); Lymphocytes % (A) 33 %; MCH 27.5 pg (25.0-35.0); MCHC 34.1 g/dL (31.0-37.0); MCV 80.8 fL (80.0-100.0); Mean Platelet Volume 8.7; Monocytes # (A) 0.2 k/uL (0-1.0); Monocytes % (A) 6 %; Neutrophils # (A) 2.4 k/uL (1.3-7.7); Neutrophils % (A) 58 %; Platelet Count 120 k/uL (150-450); Poikilocytosis Slight; RBC 4.25 m/uL (4.30-5.90); RDW 13.6 % (11.5-15.5); WBC 4.2 k/uL (3.8-10.6)
[2017-12-28 14:17] LABS: Appearance,Urine Clear (Clear); Bilirubin,Urine Negative (Negative); Blood,Urine Negative (Negative); Color,Urine Yellow; Glucose,Urine (UA) Negative (Negative); Ketones,Urine Negative (Negative); Leukocyte Esterase,Urine Negative (Negative); Nitrite,Urine Negative (Negative); Protein,Urine Negative (Negative); Specific Gravity,Urine 1.014 (1.001-1.035); Urobilinogen,Urine <2.0 mg/dL (<2.0)
[2017-12-28 14:24] LABS: ALT 41 U/L (21-72); AST 40 U/L (17-59); Albumin 3.9 g/dL (3.5-5.0); Alkaline Phosphatase 72 U/L (38-126); Amylase 38 U/L (30-110); Anion Gap 11 mmol/L; Blood Urea Nitrogen 12 mg/dL (9-20); Calcium 9.6 mg/dL (8.4-10.2); Carbon Dioxide 26 mmol/L (22-30); Chloride 104 mmol/L (98-107); Glucose 118 mg/dL (74-99); Lipase 76 U/L (23-300); Potassium 4.4 mmol/L (3.5-5.1); Sodium 141 mmol/L (137-145); Total Bilirubin 1.2 mg/dL (0.2-1.3)
--- NOTE | 2017-12-28 14:50 | XR ---
EXAMINATION TYPE: XR KUB DATE OF EXAM: 12/28/2017 CLINICAL DATA: 47-year-old male with pain, [facility] COMPARISON: 12/24/2017 FINDINGS: Lung bases are clear. No evidence for free intraperitoneal air. No dilated bowel. Scattered small air-fluid levels in the colon with minimal stool. Cholecystectomy clips. IMPRESSION: 1. No evidence of bowel obstruction or free intraperitoneal air. 2. Scattered small colonic air-fluid levels could represent enteritis with liquid stool or mild ileus .
[2017-12-28 14:55] VITALS: BP 131/74; PULSE 60; RESP 20; TEMP 98.4
== END 2017-12-28 15:06 | disposition home or self-care (01) ==
LOC: EC 13:33
DX: R10.84 Generalized abdominal pain (principal); R07.9 Chest pain, unspecified; R06.02 Shortness of breath; E11.9 Type 2 diabetes mellitus without complications; K21.9 Gastro-esophageal reflux disease without esophagitis; I10 Essential (primary) hypertension; G40.909 Epilepsy, unspecified, not intractable, without status epilepticus; K58.9 Irritable bowel syndrome, unspecified; F20.9 Schizophrenia, unspecified; F32.9 Major depressive disorder, single episode, unspecified; F90.9 Attention-deficit hyperactivity disorder, unspecified type; Z87.891 Personal history of nicotine dependence; Z79.4 Long term (current) use of insulin; Z79.899 Other long term (current) drug therapy; Z88.0 Allergy status to penicillin; Z88.8 Allergy status to other drugs, medicaments and biological substances; Z95.818 Presence of other cardiac implants and grafts; Z90.49 Acquired absence of other specified parts of digestive tract
CPT/HCPCS: 36415; 74018; 80053; 81003; 82150; 83690; 84484; 85025; 93005; 99284

== ENCOUNTER 2017-12-29 14:18 | Emergency (ER) | payer MEDICARE, OTHER ==
--- NOTE | 2017-12-29 16:44 | ED ---
General Adult HPI - General Chief complaint: Abdominal Pain Stated complaint: Groin Pain Time Seen by Provider: 12/29/17 15:05 Source: patient, RN notes reviewed, old records reviewed Mode of arrival: ambulatory Limitations: no limitations - History of Present Illness Initial comments: This is a 47-year-old male to the ER for evaluation, patient presents for evaluation of abdominal pain and groin pain. Patient is well-known the ER for similar complaints as well as psychiatric illness. Patient has been following up on the outpatient basis with no improvement - Related Data Home Medications Medication Instructions Recorded Confirmed Lisinopril [Zestril] 10 mg PO QAM 06/06/14 01/10/18 INSULIN LISPRO (HumaLOG) [humaLOG] See Protocol SQ AC-TID 08/16/15 01/10/18 Divalproex Sodium [Depakote] 500 mg PO TID 01/10/17 01/10/18 traZODone HCL 50 mg PO HS 11/08/17 01/10/18 Cetirizine HCl [Zyrtec] 10 mg PO DAILY 11/17/17 01/10/18 Hyoscyamine Sulfate [Levsin] 0.125 mg PO Q4H 11/29/17 01/10/18 Omeprazole 20 mg PO BID 11/30/17 01/10/18 Alfuzosin HCl [Alfuzosin HCl ER] 10 mg PO DAILY 12/04/17 01/10/18 Polyethylene Glycol 3350 [Miralax] 17 gm PO DAILY 12/04/17 01/10/18 Ferrous Fumarate/Ascorbic Acid 1 tab PO DAILY 12/10/17 01/10/18 [Doris-Sequels 65-25 mg Caplet] Levofloxacin [Levaquin] 500 mg PO DAILY 01/10/18 01/10/18 Ondansetron [Zuplenz] 4 mg PO DAILY 01/10/18 01/10/18 Oxybutynin Xl [Ditropan Xl] 5 mg PO DAILY 01/10/18 01/10/18 Sucralfate [Carafate] 1 gm PO BID 01/10/18 01/10/18 Previous Rx's Medication Instructions Recorded Simethicone [Gas-X] 125 mg PO QID #10 capsule 11/27/17 Insulin Glargine [Lantus] 45 unit SQ HS #0 12/07/17 Acetaminophen Tab [Tylenol] 650 mg PO Q6HR PRN tab 12/26/17 Magnesium Hydroxide [Milk of 2,400 mg PO BID PRN #200 ml 12/26/17 Magnesia Concentrate] Sennosides-Docusate Sodium 2 each PO BID PRN #30 tab 12/26/17 [Senokot-S] Allergies Allergy/AdvReac Type Severity Reaction Status Date / Time bisacodyl Allergy dizziness Verified 01/10/18 09:22 [From Dulcolax (bisacodyl)] gabapentin Allergy seizures Verified 01/10/18 09:22 lactulose Allergy Rash/Hives Verified 01/10/18 09:22 Penicillins Allergy Unknown Verified 01/10/18 09:22 Childhood clozapine [From Clozaril] AdvReac Severe Aggression Verified 01/10/18 09:22 Review of Systems ROS Statement: Those systems with pertinent positive or pertinent negative responses have been documented in the HPI. ROS Other: All systems not noted in ROS Statement are negative. Past Medical History Past Medical History: Asthma, Diabetes Mellitus, GERD/Reflux, GI Bleed, Hypertension, Osteoarthritis (OA), Seizure Disorder, Skin Disorder, Sleep Apnea/ CPAP/BIPAP Additional Past Medical History / Comment(s): ,LAST SEIZURE 28 YRS AGO. chronic back/neck pain. DOES NOT USE CPAP. SPINAL STENOSIS, DDD IN BACK, SCOLIOSIS, IBS , psoriasis, frequent urination, chronic diarrhea/constipation issues, schizophrenia,depression, add/adhd. History of Any Multi-Drug Resistant Organisms: None Reported Past Surgical History: Cholecystectomy, Heart Catheterization, Tonsillectomy Additional Past Surgical History / Comment(s): PAIN PROCEDURES, colonscopy with polyp removal 12/03/17 with repair and transfusion Past Anesthesia/Blood Transfusion Reactions: Motion Sickness Past Psychological History: ADD/ADHD, Schizophrenia, Depression, Schizophrenia Smoking Status: Former smoker Past Alcohol Use History: None Reported Past Drug Use History: None Reported - Past Family History Father History Unknown: Yes Family Medical History: Unable to Obtain Additional Family Medical History / Comment(s): pt has'nt seen his father since he was age 5 Mother Family Medical History: No Reported History Additional Family Medical History / Comment(s): Mother at age 55yrs of [place]. General Exam Limitations: no limitations General appearance: alert, in no apparent distress Head exam: Present: atraumatic, normocephalic, normal inspection Eye exam: Present: normal appearance, PERRL, EOMI. Absent: scleral icterus, conjunctival injection, periorbital swelling ENT exam: Present: normal exam, mucous membranes moist Neck exam: Present: normal inspection. Absent: tenderness, meningismus, lymphadenopathy Respiratory exam: Present: normal lung sounds bilaterally. Absent: respiratory distress, wheezes, rales, rhonchi, stridor Cardiovascular Exam: Present: regular rate, normal rhythm, normal heart sounds. Absent: systolic murmur, diastolic murmur, rubs, gallop, clicks GI/Abdominal exam: Present: soft, normal bowel sounds. Absent: distended, tenderness, guarding, rebound, rigid Extremities exam: Present: normal inspection, full ROM, normal capillary refill. Absent: tenderness, pedal edema, joint swelling, calf tenderness Back exam: Present: normal inspection Neurological exam: Present: alert, oriented X3, CN II-XII intact Psychiatric exam: Present: normal affect, normal mood Skin exam: Present: warm, dry, intact, normal color. Absent: rash Course Vital Signs 12/29/17 12/29/17 14:51 17:17 Temperature 97.4 F L 98.1 F Pulse Rate 67 77 Respiratory 18 16 Rate Blood Pressure 123/73 138/69 O2 Sat by Pulse 100 100 Oximetry Medical Decision Making - Medical Decision Making 47 male the ER for evaluation of nonspecific pain. Will not be given pain medication today, no significant cause found on exam for patient's pain. Patient's medical records were thoroughly reviewed with no significant findings. Patient can be discharged home Disposition Clinical Impression: Personality disorder, Abdominal pain Disposition: HOME SELF-CARE Instructions: Abdominal Pain in Children (ED) Is patient prescribed a controlled substance at d/c from ED?: No Referrals: Brandon Mcpherson MD [Primary Care Provider] - 1-2 days
[2017-12-29 17:18] VITALS: BP 138/69; PULSE 77; RESP 16; TEMP 98.1
== END 2017-12-29 17:17 | disposition home or self-care (01) ==
LOC: EC 14:18
DX: R10.9 Unspecified abdominal pain (principal); F60.9 Personality disorder, unspecified; E11.9 Type 2 diabetes mellitus without complications; K21.9 Gastro-esophageal reflux disease without esophagitis; I10 Essential (primary) hypertension; G40.909 Epilepsy, unspecified, not intractable, without status epilepticus; K58.9 Irritable bowel syndrome, unspecified; F90.9 Attention-deficit hyperactivity disorder, unspecified type; F32.9 Major depressive disorder, single episode, unspecified; F20.9 Schizophrenia, unspecified; Z87.891 Personal history of nicotine dependence; Z79.4 Long term (current) use of insulin; Z79.899 Other long term (current) drug therapy; Z88.0 Allergy status to penicillin; Z91.018 Allergy to other foods; Z88.8 Allergy status to other drugs, medicaments and biological substances; Z95.818 Presence of other cardiac implants and grafts; Z86.010 Personal history of colon polyps
CPT/HCPCS: 99284

== ENCOUNTER 2017-12-31 00:34 | Emergency (ER) | payer MEDICARE, OTHER ==
[2017-12-31 00:52] VITALS: RESP 18
--- NOTE | 2017-12-31 01:34 | XR ---
EXAMINATION TYPE: XR chest 2V DATE OF EXAM: 12/31/2017 COMPARISON: 11/30/2017 HISTORY: Chest pain TECHNIQUE: Frontal and lateral views of the chest are obtained. FINDINGS: Heart and mediastinum are normal. Lungs are clear. Diaphragm is normal. Bony thorax is int act. IMPRESSION: Normal chest. No change.
--- NOTE | 2017-12-31 03:07 | ED ---
General Adult HPI - General Chief complaint: Chest Pain Stated complaint: adverse rxn to meds Time Seen by Provider: 12/31/17 02:05 Source: patient Mode of arrival: ambulatory Limitations: no limitations - History of Present Illness Initial comments: 47-year-old male patient presents to the emergency department today for evaluation of chest tightness and sore throat. Patient believes this may be either an ALLERGIC reaction from a stool softener or anxiety. Patient states he has had anxiety in the past. States symptoms have been similar. States that he also took Colace for the first time this evening. States he took the medication around 845 and started having symptoms around 9:30. Patient states that symptoms are improved at this time. He is requesting medication for anxiety. Patient denies any nausea or vomiting. Denies any abdominal pain. Denies any sweats. Denies any dizziness or weakness. Denies any rash or itching. Patient denies any recent fever, chills, shortness breath, diarrhea, constipation, back pain, numbness, tingling, hematuria, dysuria, urinary urgency , urinary frequency, headache, visual changes, or any other complaints. - Related Data Home Medications Medication Instructions Recorded Confirmed Lisinopril [Zestril] 10 mg PO QAM 06/06/14 12/28/17 INSULIN LISPRO (HumaLOG) [humaLOG] See Protocol SQ AC-TID 08/16/15 12/28/17 Divalproex Sodium [Depakote] 500 mg PO TID 01/10/17 12/28/17 traZODone HCL 50 mg PO HS 11/08/17 12/28/17 Cetirizine HCl [Zyrtec] 10 mg PO DAILY 11/17/17 12/28/17 Hyoscyamine Sulfate [Levsin] 0.125 mg PO Q4H 11/29/17 12/28/17 Omeprazole 20 mg PO BID 11/30/17 12/28/17 Alfuzosin HCl [Alfuzosin HCl ER] 10 mg PO DAILY 12/04/17 12/28/17 Polyethylene Glycol 3350 [Miralax] 17 gm PO DAILY 12/04/17 12/28/17 Ferrous Fumarate/Ascorbic Acid 1 tab PO DAILY 12/10/17 12/28/17 [Doris-Sequels 65-25 mg Caplet] Previous Rx's Medication Instructions Recorded Simethicone [Gas-X] 125 mg PO QID #10 capsule 11/27/17 Insulin Glargine [Lantus] 45 unit SQ HS #0 12/07/17 Acetaminophen Tab [Tylenol] 650 mg PO Q6HR PRN tab 12/26/17 Magnesium Hydroxide [Milk of 2,400 mg PO BID PRN #200 ml 12/26/17 Magnesia Concentrate] Sennosides-Docusate Sodium 2 each PO BID PRN #30 tab 12/26/17 [Senokot-S] Allergies Allergy/AdvReac Type Severity Reaction Status Date / Time bisacodyl Allergy dizziness Verified 12/31/17 00:52 [From Dulcolax (bisacodyl)] gabapentin Allergy seizures Verified 12/31/17 00:52 lactulose Allergy Rash/Hives Verified 12/31/17 00:52 Penicillins Allergy Unknown Verified 12/31/17 00:52 Childhood clozapine [From Clozaril] AdvReac Severe Aggression Verified 12/31/17 00:52 Review of Systems ROS Statement: Those systems with pertinent positive or pertinent negative responses have been documented in the HPI. ROS Other: All systems not noted in ROS Statement are negative. Past Medical History Past Medical History: Asthma, Diabetes Mellitus, GERD/Reflux, GI Bleed, Hypertension, Osteoarthritis (OA), Seizure Disorder, Skin Disorder, Sleep Apnea/ CPAP/BIPAP Additional Past Medical History / Comment(s): ,LAST SEIZURE 28 YRS AGO. chronic back/neck pain. DOES NOT USE CPAP. SPINAL STENOSIS, DDD IN BACK, SCOLIOSIS, IBS , psoriasis, frequent urination, chronic diarrhea/constipation issues, schizophrenia,depression, add/adhd., History of Any Multi-Drug Resistant Organisms: None Reported Past Surgical History: Cholecystectomy, Heart Catheterization, Tonsillectomy Additional Past Surgical History / Comment(s): PAIN PROCEDURES, colonscopy with polyp removal 12/03/17 with repair and transfusion , Past Anesthesia/Blood Transfusion Reactions: Motion Sickness Past Psychological History: ADD/ADHD, Schizophrenia, Depression, Schizophrenia Smoking Status: Former smoker Past Alcohol Use History: None Reported Past Drug Use History: None Reported - Past Family History Father History Unknown: Yes Family Medical History: Unable to Obtain Additional Family Medical History / Comment(s): pt has'nt seen his father since he was age 5 Mother Family Medical History: No Reported History Additional Family Medical History / Comment(s): Mother at age 55yrs of [place]. General Exam Limitations: no limitations General appearance: alert, in no apparent distress, other (This is a well- developed, well-nourished adult male patient in no acute distress. Vital signs upon presentation are temperature 97.6F, pulse 64, respirations 18, blood pressure 121/75, pulse ox 99% on room air.) Eye exam: Present: normal appearance, PERRL, EOMI. Absent: scleral icterus, conjunctival injection, periorbital swelling ENT exam: Present: normal exam, normal oropharynx, mucous membranes moist, other (No throat swelling, swallowing without difficulty) Neck exam: Present: normal inspection. Absent: tenderness, meningismus, lymphadenopathy Respiratory exam: Present: normal lung sounds bilaterally, other (Speaking full sentences.). Absent: respiratory distress, wheezes, rales, rhonchi, stridor Cardiovascular Exam: Present: regular rate, normal rhythm, normal heart sounds. Absent: systolic murmur, diastolic murmur, rubs, gallop, clicks GI/Abdominal exam: Present: soft, normal bowel sounds. Absent: distended, tenderness, guarding, rebound, rigid Neurological exam: Present: alert, oriented X3, CN II-XII intact Psychiatric exam: Present: normal affect, normal mood Skin exam: Present: warm, dry, intact, normal color. Absent: rash Course Vital Signs 12/31/17 00:48 Temperature 97.6 F Pulse Rate 64 Respiratory 18 Rate Blood Pressure 121/75 O2 Sat by Pulse 99 Oximetry EKG Findings - EKG Comments: EKG Findings:: EKG obtained at 09 16 shows normal sinus rhythm with nonspecific T-wave abnormality. Ventricular rate is 66, P return of a 190, QRS duration 114 , QTC 426, QTc 446. No evidence of ST elevation or depression. Medical Decision Making - Medical Decision Making 47-year-old male patient presented to the emergency department today for complaints of anxiety and or ALLERGIC reaction to Colace. Physical examination is unremarkable. Patient is feeling better at this time. Chest x-ray shows no acute abnormalities. EKG is unremarkable. We'll discharge patient home to follow-up with his primary care physician and his psychiatrist. I did suggest he does not take this medication any longer. Return parameters discussed in detail. He verbalizes understanding and agrees with this plan. - Radiology Data Radiology results: report reviewed, image reviewed Two-view x-ray of the chest shows a heart and mediastinum are normal. Lungs are clear. Diaphragm is normal. Bony thorax is intact. Impression by Dr. Saldana shows normal chest with no change. Disposition Clinical Impression: Anxiety Disposition: HOME SELF-CARE Condition: Good Instructions: Anxiety (ED) Additional Instructions: Follow-up with your psychiatrist and your primary care physician for further evaluation. Return here immediately for any new, worsening, or concerning symptoms. Is patient prescribed a controlled substance at d/c from ED?: No Referrals: Brandon Mcpherson MD [Primary Care Provider] - 1-2 days Time of Disposition: 03:07
[2017-12-31 03:25] VITALS: BP 121/72; PULSE 87; TEMP 97.3
== END 2017-12-31 03:24 | disposition home or self-care (01) ==
LOC: EC 00:34
DX: F41.9 Anxiety disorder, unspecified (principal); E11.9 Type 2 diabetes mellitus without complications; K21.9 Gastro-esophageal reflux disease without esophagitis; G40.909 Epilepsy, unspecified, not intractable, without status epilepticus; K58.9 Irritable bowel syndrome, unspecified; F20.9 Schizophrenia, unspecified; F32.9 Major depressive disorder, single episode, unspecified; K59.00 Constipation, unspecified; Z95.5 Presence of coronary angioplasty implant and graft; Z88.0 Allergy status to penicillin; Z88.8 Allergy status to other drugs, medicaments and biological substances; Z79.4 Long term (current) use of insulin; Z79.899 Other long term (current) drug therapy; Z87.891 Personal history of nicotine dependence
CPT/HCPCS: 71046; 93005; 99285

== ENCOUNTER 2018-01-03 02:49 | Emergency (ER) | payer MEDICARE, OTHER ==
[2018-01-03 02:55] VITALS: BP 109/60; PULSE 75; RESP 16; TEMP 96.8
--- NOTE | 2018-01-03 03:04 | ED ---
Abdominal Pain HPI - General Chief Complaint: Abdominal Pain Stated Complaint: abd pain chest pain Time Seen by Provider: 01/03/18 02:59 Source: patient Mode of arrival: ambulatory Limitations: no limitations - History of Present Illness Initial Comments: 47-year-old male patient presents to the emergency department today for complaints of "pins and needles" sensation in his suprapubic region. Patient states this started just prior to arrival. States woke from sleep. Patient states he has been urinating frequently. Denies any hematuria or dysuria. States also that he has chronic constipation. Patient denies any recent rash, fever, chills, shortness breath, chest pain, abdominal pain, nausea, vomiting, diarrhea, back pain, numbness, tingling, dizziness, weakness, headache, visual changes, or any other complaints. - Related Data Home Medications Medication Instructions Recorded Confirmed Lisinopril [Zestril] 10 mg PO QAM 06/06/14 12/28/17 INSULIN LISPRO (HumaLOG) [humaLOG] See Protocol SQ AC-TID 08/16/15 12/28/17 Divalproex Sodium [Depakote] 500 mg PO TID 01/10/17 12/28/17 traZODone HCL 50 mg PO HS 11/08/17 12/28/17 Cetirizine HCl [Zyrtec] 10 mg PO DAILY 11/17/17 12/28/17 Hyoscyamine Sulfate [Levsin] 0.125 mg PO Q4H 11/29/17 12/28/17 Omeprazole 20 mg PO BID 11/30/17 12/28/17 Alfuzosin HCl [Alfuzosin HCl ER] 10 mg PO DAILY 12/04/17 12/28/17 Polyethylene Glycol 3350 [Miralax] 17 gm PO DAILY 12/04/17 12/28/17 Ferrous Fumarate/Ascorbic Acid 1 tab PO DAILY 12/10/17 12/28/17 [Doris-Sequels 65-25 mg Caplet] Previous Rx's Medication Instructions Recorded Simethicone [Gas-X] 125 mg PO QID #10 capsule 11/27/17 Insulin Glargine [Lantus] 45 unit SQ HS #0 12/07/17 Acetaminophen Tab [Tylenol] 650 mg PO Q6HR PRN tab 12/26/17 Magnesium Hydroxide [Milk of 2,400 mg PO BID PRN #200 ml 12/26/17 Magnesia Concentrate] Sennosides-Docusate Sodium 2 each PO BID PRN #30 tab 12/26/17 [Senokot-S] Allergies Allergy/AdvReac Type Severity Reaction Status Date / Time bisacodyl Allergy dizziness Verified 01/03/18 02:55 [From Dulcolax (bisacodyl)] gabapentin Allergy seizures Verified 01/03/18 02:55 lactulose Allergy Rash/Hives Verified 01/03/18 02:55 Penicillins Allergy Unknown Verified 01/03/18 02:55 Childhood clozapine [From Clozaril] AdvReac Severe Aggression Verified 01/03/18 02:55 Review of Systems ROS Statement: Those systems with pertinent positive or pertinent negative responses have been documented in the HPI. ROS Other: All systems not noted in ROS Statement are negative. Past Medical History Past Medical History: Asthma, Diabetes Mellitus, GERD/Reflux, GI Bleed, Hypertension, Osteoarthritis (OA), Seizure Disorder, Skin Disorder, Sleep Apnea/ CPAP/BIPAP Additional Past Medical History / Comment(s): ,LAST SEIZURE 28 YRS AGO. chronic back/neck pain. DOES NOT USE CPAP. SPINAL STENOSIS, DDD IN BACK, SCOLIOSIS, IBS , psoriasis, frequent urination, chronic diarrhea/constipation issues, schizophrenia,depression, add/adhd., History of Any Multi-Drug Resistant Organisms: None Reported Past Surgical History: Cholecystectomy, Heart Catheterization, Tonsillectomy Additional Past Surgical History / Comment(s): PAIN PROCEDURES, colonscopy with polyp removal 12/03/17 with repair and transfusion , Past Anesthesia/Blood Transfusion Reactions: Motion Sickness Past Psychological History: ADD/ADHD, Schizophrenia, Depression, Schizophrenia Smoking Status: Former smoker Past Alcohol Use History: None Reported Past Drug Use History: None Reported - Past Family History Father History Unknown: Yes Family Medical History: Unable to Obtain Additional Family Medical History / Comment(s): pt has'nt seen his father since he was age 5 Mother Family Medical History: No Reported History Additional Family Medical History / Comment(s): Mother at age 55yrs of [place]. General Exam Limitations: no limitations General appearance: alert, in no apparent distress, other (This is a well- developed, well-nourished adult male patient in no acute distress. Vital signs upon presentation are temperature 96.8F, pulse 75, respirations 16, blood pressure 109/60, pulse ox 100% on room air.) Eye exam: Present: normal appearance, PERRL, EOMI. Absent: scleral icterus, conjunctival injection, periorbital swelling ENT exam: Present: normal exam, normal oropharynx, mucous membranes moist Respiratory exam: Present: normal lung sounds bilaterally. Absent: respiratory distress, wheezes, rales, rhonchi, stridor Cardiovascular Exam: Present: regular rate, normal rhythm, normal heart sounds. Absent: systolic murmur, diastolic murmur, rubs, gallop, clicks GI/Abdominal exam: Present: soft, tenderness (Mild superpubic tenderness), normal bowel sounds. Absent: distended, guarding, rebound, rigid Back exam: Present: normal inspection. Absent: CVA tenderness (R), CVA tenderness (L) Neurological exam: Present: alert, oriented X3, CN II-XII intact Psychiatric exam: Present: normal affect, normal mood Skin exam: Present: warm, dry, intact, normal color. Absent: rash Course Vital Signs 01/03/18 02:52 Temperature 96.8 F L Pulse Rate 75 Respiratory 16 Rate Blood Pressure 109/60 O2 Sat by Pulse 100 Oximetry Medical Decision Making - Medical Decision Making 47-year-old male patient who presents to the emergency department today for complaints of "pins and needle sensation" to the suprapubic region. Urine is clear yellow. Physical examination is relatively unremarkable. Previous urine test from December 28 was reviewed and was normal. Patient has been in the emergency department over 45 times this year, with similar complaints. Vital signs are stable. Patient appears well and in no acute distress. He'll be discharged home at this time to follow-up with his primary care physician for recheck as soon as possible. Return parameters discussed in detail. He verbalizes understanding and agrees with this plan. Disposition Clinical Impression: Chronic abdominal pain Disposition: HOME SELF-CARE Condition: Good Instructions: Abdominal Pain (ED) Additional Instructions: Follow-up with her primary care physician for recheck in 1-2 days. Return here immediately for any new, worsening, or concerning symptoms. Is patient prescribed a controlled substance at d/c from ED?: No Referrals: Brandon Mcpherson MD [Primary Care Provider] - 1-2 days Time of Disposition: 03:06
== END 2018-01-03 03:13 | disposition home or self-care (01) ==
LOC: EC 02:49
DX: R10.9 Unspecified abdominal pain (principal); R35.0 Frequency of micturition; E11.9 Type 2 diabetes mellitus without complications; K21.9 Gastro-esophageal reflux disease without esophagitis; G40.909 Epilepsy, unspecified, not intractable, without status epilepticus; K58.9 Irritable bowel syndrome, unspecified; F90.9 Attention-deficit hyperactivity disorder, unspecified type; F32.9 Major depressive disorder, single episode, unspecified; F20.9 Schizophrenia, unspecified; Z87.891 Personal history of nicotine dependence; Z79.4 Long term (current) use of insulin; Z79.899 Other long term (current) drug therapy; Z88.0 Allergy status to penicillin; Z88.8 Allergy status to other drugs, medicaments and biological substances; Z90.49 Acquired absence of other specified parts of digestive tract
CPT/HCPCS: 99283

== ENCOUNTER 2018-01-07 03:25 | Emergency (ER) | payer MEDICARE, OTHER ==
[2018-01-07 03:33] VITALS: BP 141/76; PULSE 62; RESP 16; TEMP 97.8
[2018-01-07] MEDS ORDERED: diphenhydrAMINE 50 MG CAP PO STA (03:48)
--- NOTE | 2018-01-07 03:54 | ED ---
General Adult HPI - General Chief complaint: Recheck/Abnormal Lab/Rx Stated complaint: back neck pain Time Seen by Provider: 01/07/18 03:41 Source: patient, RN notes reviewed, old records reviewed Mode of arrival: ambulatory Limitations: no limitations - History of Present Illness Initial comments: This patient is a 47-year-old male presents emergency department today chief complaint of insomnia. He states that he is having neck and back pain. He is well-known to the emergency department for chronic pain, constipation. He was seen today by his primary care provider. He was prescribed medication for his GERD including Carafate, was placed on Levaquin for a sinus infection, as well as muscle relaxers. He states that he is taking these medications as no improvement. He is only had one dose. Patient reports that he is now seeing a new primary care physician compared to his previous visits that I have seen with them. He states only thing the will help his pain is more faint but then that causes him to be constipated. - Related Data Home Medications Medication Instructions Recorded Confirmed Lisinopril [Zestril] 10 mg PO QAM 06/06/14 12/28/17 INSULIN LISPRO (HumaLOG) [humaLOG] See Protocol SQ AC-TID 08/16/15 12/28/17 Divalproex Sodium [Depakote] 500 mg PO TID 01/10/17 12/28/17 traZODone HCL 50 mg PO HS 11/08/17 12/28/17 Cetirizine HCl [Zyrtec] 10 mg PO DAILY 11/17/17 12/28/17 Hyoscyamine Sulfate [Levsin] 0.125 mg PO Q4H 11/29/17 12/28/17 Omeprazole 20 mg PO BID 11/30/17 12/28/17 Alfuzosin HCl [Alfuzosin HCl ER] 10 mg PO DAILY 12/04/17 12/28/17 Polyethylene Glycol 3350 [Miralax] 17 gm PO DAILY 12/04/17 12/28/17 Ferrous Fumarate/Ascorbic Acid 1 tab PO DAILY 12/10/17 12/28/17 [Doris-Sequels 65-25 mg Caplet] Previous Rx's Medication Instructions Recorded Simethicone [Gas-X] 125 mg PO QID #10 capsule 11/27/17 Insulin Glargine [Lantus] 45 unit SQ HS #0 12/07/17 Acetaminophen Tab [Tylenol] 650 mg PO Q6HR PRN tab 12/26/17 Magnesium Hydroxide [Milk of 2,400 mg PO BID PRN #200 ml 12/26/17 Magnesia Concentrate] Sennosides-Docusate Sodium 2 each PO BID PRN #30 tab 12/26/17 [Senokot-S] Allergies Allergy/AdvReac Type Severity Reaction Status Date / Time bisacodyl Allergy dizziness Verified 01/07/18 03:32 [From Dulcolax (bisacodyl)] gabapentin Allergy seizures Verified 01/07/18 03:32 lactulose Allergy Rash/Hives Verified 01/07/18 03:32 Penicillins Allergy Unknown Verified 01/07/18 03:32 Childhood clozapine [From Clozaril] AdvReac Severe Aggression Verified 01/07/18 03:32 Review of Systems ROS Statement: Those systems with pertinent positive or pertinent negative responses have been documented in the HPI. ROS Other: All systems not noted in ROS Statement are negative. Past Medical History Past Medical History: Asthma, Diabetes Mellitus, GERD/Reflux, GI Bleed, Hypertension, Osteoarthritis (OA), Seizure Disorder, Skin Disorder, Sleep Apnea/ CPAP/BIPAP Additional Past Medical History / Comment(s): ,LAST SEIZURE 28 YRS AGO. chronic back/neck pain. DOES NOT USE CPAP. SPINAL STENOSIS, DDD IN BACK, SCOLIOSIS, IBS , psoriasis, frequent urination, chronic diarrhea/constipation issues, schizophrenia,depression, add/adhd., History of Any Multi-Drug Resistant Organisms: None Reported Past Surgical History: Cholecystectomy, Heart Catheterization, Tonsillectomy Additional Past Surgical History / Comment(s): PAIN PROCEDURES, colonscopy with polyp removal 12/03/17 with repair and transfusion , Past Anesthesia/Blood Transfusion Reactions: Motion Sickness Past Psychological History: ADD/ADHD, Schizophrenia, Depression, Schizophrenia Smoking Status: Former smoker Past Alcohol Use History: None Reported Past Drug Use History: None Reported - Past Family History Father History Unknown: Yes Family Medical History: Unable to Obtain Additional Family Medical History / Comment(s): pt has'nt seen his father since he was age 5 Mother Family Medical History: No Reported History Additional Family Medical History / Comment(s): Mother at age 55yrs of [place]. General Exam - General Exam Comments Initial Comments: 47-year-old male. No distress. Limitations: no limitations General appearance: alert, in no apparent distress Head exam: Present: atraumatic, normocephalic, normal inspection Eye exam: Present: normal appearance, PERRL, EOMI. Absent: scleral icterus, conjunctival injection, periorbital swelling ENT exam: Present: normal exam, mucous membranes moist Neck exam: Present: normal inspection. Absent: tenderness, meningismus, lymphadenopathy Respiratory exam: Present: normal lung sounds bilaterally. Absent: respiratory distress, wheezes, rales, rhonchi, stridor Cardiovascular Exam: Present: regular rate, normal rhythm, normal heart sounds. Absent: systolic murmur, diastolic murmur, rubs, gallop, clicks GI/Abdominal exam: Present: soft, normal bowel sounds. Absent: distended, tenderness, guarding, rebound, rigid Extremities exam: Present: normal inspection, full ROM, normal capillary refill. Absent: tenderness, pedal edema, joint swelling, calf tenderness Back exam: Present: normal inspection Neurological exam: Present: alert, oriented X3, CN II-XII intact Psychiatric exam: Present: normal affect, normal mood Skin exam: Present: warm, dry, intact, normal color. Absent: rash Course Vital Signs 01/07/18 03:30 Temperature 97.8 F Pulse Rate 62 Respiratory 16 Rate Blood Pressure 141/76 O2 Sat by Pulse 98 Oximetry Medical Decision Making - Medical Decision Making 47-year-old male complaining of insomnia. He states his general body pain. He cannot take anything besides morphine however the causes constipation. I will not give him any narcotics. He has been to the emergency department multiple times for similar complaints. He has followed up with primary care provider recently and got prescriptions for Levaquin and muscle relaxers today. I discussed with him that he has to give those medications time to work. I had a lengthy discussion with him to give him some medication and may make him drowsy and help him sleep. Tonight. No narcotics or benzodiazepines will be given. He will be given by mouth Benadryl. Discussed he can follow-up with his PCP and given his medication some time to work. All questions answered return parameters were discussed. Disposition Clinical Impression: Insomnia, Chronic pain Disposition: HOME SELF-CARE Condition: Good Instructions: Insomnia (ED) Additional Instructions: Allow the medications that were just prescribed to start working. Follow-up with PCP. Is patient prescribed a controlled substance at d/c from ED?: No If prescribed controlled substance>3 days was MAPS reviewed?: No When asked, does pt state using other controlled substances?: No Referrals: Navi Lopez MD [Primary Care Provider] - 1-2 days Time of Disposition: 03:53
== END 2018-01-07 04:00 | disposition home or self-care (01) ==
LOC: EC 03:25
DX: G47.00 Insomnia, unspecified (principal); G89.29 Other chronic pain; K59.00 Constipation, unspecified; M54.2 Cervicalgia; M54.9 Dorsalgia, unspecified; M51.36 Other intervertebral disc degeneration, lumbar region; E11.9 Type 2 diabetes mellitus without complications; K21.9 Gastro-esophageal reflux disease without esophagitis; I10 Essential (primary) hypertension; G40.909 Epilepsy, unspecified, not intractable, without status epilepticus; M48.00 Spinal stenosis, site unspecified; M41.9 Scoliosis, unspecified; F32.9 Major depressive disorder, single episode, unspecified; F90.9 Attention-deficit hyperactivity disorder, unspecified type; G47.30 Sleep apnea, unspecified; Z99.89 Dependence on other enabling machines and devices; Z95.818 Presence of other cardiac implants and grafts; Z87.891 Personal history of nicotine dependence; Z79.4 Long term (current) use of insulin; Z79.899 Other long term (current) drug therapy; Z88.8 Allergy status to other drugs, medicaments and biological substances; Z91.011 Allergy to milk products; Z88.0 Allergy status to penicillin
CPT/HCPCS: 99283

== ENCOUNTER 2018-01-24 12:48 | Emergency (ER) | payer MEDICARE, OTHER ==
[2018-01-24 12:57] VITALS: BP 129/69; PULSE 88; RESP 18; TEMP 98
[2018-01-24] MEDS ORDERED: DIPH,PERTUS(ACELL)TETVAC-LF 0.5 ML VIAL IM ONE (13:31)
--- NOTE | 2018-01-24 13:52 | XR ---
EXAMINATION TYPE: XR foot complete bilateral DATE OF EXAM: 01/24/2018 COMPARISON: NONE HISTORY: Pain in right foot, discoloration of left foot TECHNIQUE: Bilateral feet 3 views each. FINDINGS: Left foot: Hallux valgus deformity is present. Some degenerative joint changes within the first digit . No acute fractures are evident. Right foot: Hallux valgus deformity is present. Some degenerative joint changes within the first digi t. No acute fractures are evident. There appears to be a chronic avulsion or erosion of the distal me dial phalanx first digit. Correlate with location of the patient's pain IMPRESSION: 1. There appears to be an avulsion which is likely old with smooth borders of the distal medial port ion proximal phalanx right first digit. An occult fracture could be considered. Correlate with locati on of the patient's pain. 2. Hallux valgus deformity present bilaterally.
--- NOTE | 2018-01-24 14:05 | ED ---
General Adult HPI - General Chief complaint: Extremity Problem,Nontraumatic Stated complaint: rt toe swelling/left toe discolored Time Seen by Provider: 01/24/18 13:15 Source: patient, RN notes reviewed Mode of arrival: ambulatory Limitations: no limitations - History of Present Illness Initial comments: 47-year-old male presents to the emergency determine for chief complaint of bilateral foot and bilateral hand pain. She denies any injuries to the hands. Patient does state he has been walking a lot on his feet. Patient has a history of diabetes. Patient states he has a healed ulcer on the left foot. Patient denies any fevers or chills. Patient denies any numbness in the extremities. Patient has no other complaints at this time including shortness of breath, chest pain, abdominal pain, nausea or vomiting, headache, or visual changes. - Related Data Home Medications Medication Instructions Recorded Confirmed Lisinopril [Zestril] 10 mg PO QAM 06/06/14 01/24/18 INSULIN LISPRO (HumaLOG) [humaLOG] See Protocol SQ AC-TID 08/16/15 01/24/18 Divalproex Sodium [Depakote] 500 mg PO TID 01/10/17 01/24/18 traZODone HCL 50 mg PO HS 11/08/17 01/24/18 Cetirizine HCl [Zyrtec] 10 mg PO DAILY 11/17/17 01/24/18 Hyoscyamine Sulfate [Levsin] 0.125 mg PO Q4H 11/29/17 01/24/18 Omeprazole 20 mg PO BID 11/30/17 01/24/18 Alfuzosin HCl [Alfuzosin HCl ER] 10 mg PO DAILY 12/04/17 01/24/18 Polyethylene Glycol 3350 [Miralax] 17 gm PO DAILY 12/04/17 01/24/18 Ferrous Fumarate/Ascorbic Acid 1 tab PO DAILY 12/10/17 01/24/18 [Doris-Sequels 65-25 mg Caplet] Levofloxacin [Levaquin] 500 mg PO DAILY 01/10/18 01/24/18 Ondansetron [Zuplenz] 4 mg PO DAILY 01/10/18 01/24/18 Oxybutynin Xl [Ditropan Xl] 5 mg PO DAILY 01/10/18 01/24/18 Sucralfate [Carafate] 1 gm PO BID 01/10/18 01/24/18 Sennosides-Docusate Sodium 2 tab PO BID PRN 01/24/18 01/24/18 [Senokot-S] Previous Rx's Medication Instructions Recorded Simethicone [Gas-X] 125 mg PO QID #10 capsule 11/27/17 Insulin Glargine [Lantus] 45 unit SQ HS #0 12/07/17 Acetaminophen Tab [Tylenol] 650 mg PO Q6HR PRN tab 12/26/17 Magnesium Hydroxide [Milk of 2,400 mg PO BID PRN #200 ml 12/26/17 Magnesia Concentrate] Allergies Allergy/AdvReac Type Severity Reaction Status Date / Time bisacodyl Allergy dizziness Verified 01/24/18 13:46 [From Dulcolax (bisacodyl)] gabapentin Allergy seizures Verified 01/24/18 13:46 lactulose Allergy Rash/Hives Verified 01/24/18 13:46 Penicillins Allergy Unknown Verified 01/24/18 13:46 Childhood clozapine [From Clozaril] AdvReac Severe Aggression Verified 01/24/18 13:46 Review of Systems ROS Statement: Those systems with pertinent positive or pertinent negative responses have been documented in the HPI. ROS Other: All systems not noted in ROS Statement are negative. Past Medical History Past Medical History: Asthma, Diabetes Mellitus, GERD/Reflux, GI Bleed, Hypertension, Osteoarthritis (OA), Seizure Disorder, Skin Disorder, Sleep Apnea/ CPAP/BIPAP Additional Past Medical History / Comment(s): ,LAST SEIZURE 28 YRS AGO. chronic back/neck pain. DOES NOT USE CPAP. SPINAL STENOSIS, DDD IN BACK, SCOLIOSIS, IBS , psoriasis, frequent urination, chronic diarrhea/constipation issues, schizophrenia,depression, add/adhd., History of Any Multi-Drug Resistant Organisms: None Reported Past Surgical History: Cholecystectomy, Heart Catheterization, Tonsillectomy Additional Past Surgical History / Comment(s): PAIN PROCEDURES, colonscopy with polyp removal 12/03/17 with repair and transfusion , Past Anesthesia/Blood Transfusion Reactions: Motion Sickness Past Psychological History: ADD/ADHD, Schizophrenia, Depression, Schizophrenia Smoking Status: Former smoker Past Alcohol Use History: None Reported Past Drug Use History: None Reported - Past Family History Father History Unknown: Yes Family Medical History: Unable to Obtain Additional Family Medical History / Comment(s): pt has'nt seen his father since he was age 5 Mother Family Medical History: No Reported History Additional Family Medical History / Comment(s): Mother at age 55yrs of [place]. General Exam - General Exam Comments Initial Comments: Right foot: Patient has full range of motion of the right foot and ankle and digits. Tenderness to the midfoot. No tenderness to the fifth metatarsal navicular or digits. No swelling or redness noted. Pedal and PT pulse 2+. Capillary refill less than 2 seconds. Sensation intact. Left foot : Full range of motion of the left foot, ankle, and digits. Tenderness to the dorsal midfoot. No tenderness to the fifth metatarsal navicular or digits. No swelling or redness noted. Pedal pulse and PT pulse 2+ . Capillary refill less than 2 seconds. There is a healed ulcer on the medial first digit. No pain to palpation or signs of infection such as spreading redness or drainage. Sensation intact. Right hand: Full range of motion of the right hand and right digits. Chyron Operator strength 5 out of 5. No scaphoid tenderness. No tenderness to palpation. Radial pulse strong 2+. Capillary refill less than 2 seconds. Sensation intact6 Left hand: Full range motion of the left hand and left digits. Chyron Operator strength 5 out of 5. No scaphoid tenderness. No tenderness to palpation. Radial pulse strong 2+. Capillary refill less than 2 seconds. Sensation intact. Limitations: no limitations General appearance: alert, in no apparent distress Course Vital Signs 01/24/18 12:54 Temperature 98.0 F Pulse Rate 88 Respiratory 18 Rate Blood Pressure 129/69 O2 Sat by Pulse 98 Oximetry Medical Decision Making - Medical Decision Making 47-year-old male patient see the emergency department for chief complaint of bilateral and foot pain. No injuries except patient states he has been walking a lot. Patient does have diabetes and may have neuropathy. Exam was unremarkable with tenderness to the right and left mid foot. There is a healed ulcer for which patient has seen wound care for. X-ray of the right foot shows an avulsion which is likely old with smooth borders of the distal medial portion proximal phalanx of the right first digit. Patient's pain is not correlated with this area. Patients pain is midfoot. No acute fractures in the left foot. Patient is to follow up with primary care. He was educated on rice therapy. He was told to rest his feet and her not to walk a lot for the next couple days. If symptoms worsen he will return to the emergency room. Disposition Clinical Impression: Bilateral foot pain Disposition: HOME SELF-CARE Condition: Good Instructions: RICE Therapy (ED) Additional Instructions: Please take Motrin or Tylenol for pain. Please rest the feet and keep them elevated. Return to the emergency department if you have worsening symptoms. Otherwise follow-up with primary care in 1-2 days. Is patient prescribed a controlled substance at d/c from ED?: No Referrals: Shaniqua Kyle MD [STAFF PHYSICIAN] - 1-2 days Time of Disposition: 14:03
== END 2018-01-24 14:14 | disposition home or self-care (01) ==
LOC: EC 12:48
DX: M79.671 Pain in right foot (principal); M79.672 Pain in left foot; M79.641 Pain in right hand; M79.642 Pain in left hand; I10 Essential (primary) hypertension; E11.9 Type 2 diabetes mellitus without complications; G40.909 Epilepsy, unspecified, not intractable, without status epilepticus; K58.9 Irritable bowel syndrome, unspecified; K21.9 Gastro-esophageal reflux disease without esophagitis; F32.9 Major depressive disorder, single episode, unspecified; Z87.891 Personal history of nicotine dependence; Z79.4 Long term (current) use of insulin; Z79.899 Other long term (current) drug therapy; Z88.0 Allergy status to penicillin; Z88.8 Allergy status to other drugs, medicaments and biological substances; Z91.011 Allergy to milk products; Z87.448 Personal history of other diseases of urinary system
CPT/HCPCS: 99283

== ENCOUNTER 2018-07-11 15:27 | Emergency (ER) | payer MEDICARE, OTHER ==
[2018-07-11] MEDS ORDERED: SODIUM CHLORIDE 0.9% 1,000 ML IV STA (15:46)
--- NOTE | 2018-07-11 15:49 | ED ---
General Adult HPI - General Chief complaint: Abdominal Pain Stated complaint: UTI Time Seen by Provider: 07/11/18 15:36 Source: patient, RN notes reviewed Mode of arrival: ambulatory Limitations: no limitations - History of Present Illness Initial comments: Patient is a pleasant 47-year-old male presenting to the emergency Department with concern for urinary discoloration. Patient had an episode after urinating today when he noticed green sediment in the toilet. Patient denied any dysuria. No hematuria. Patient has had some suprapubic discomfort since that time. No rectal bleeding. No fevers. No history of similar symptoms previously. No nausea vomiting. - Related Data Home Medications Medication Instructions Recorded Confirmed Lisinopril [Zestril] 10 mg PO QAM 06/06/14 07/11/18 INSULIN LISPRO (HumaLOG) [humaLOG] See Protocol SQ AC-TID 08/16/15 07/11/18 Divalproex Sodium [Depakote] 500 mg PO TID 01/10/17 07/11/18 Hyoscyamine Sulfate [Levsin] 0.125 mg PO Q4H PRN 11/29/17 07/11/18 Omeprazole 20 mg PO BID 11/30/17 07/11/18 Oxybutynin Xl [Ditropan Xl] 5 mg PO BID 01/10/18 07/11/18 Sucralfate [Carafate] 1 gm PO BID 01/10/18 07/11/18 Insulin Glargine [Lantus] 30 unit SQ HS PRN 04/08/18 07/11/18 Lidocaine 5% Oint [Xylocaine 5% 1 applic TOPICAL QID PRN 04/08/18 07/11/18 Oint] Ondansetron [Zofran] 4 mg PO Q8HR PRN 04/08/18 07/11/18 Rexulti(Unknown Dose) 1 tab PO DAILY 04/08/18 07/11/18 Simethicone [Gas-X] 125 mg PO QID PRN 04/08/18 07/11/18 Tamsulosin HCl [Flomax] 0.4 mg PO DAILY 04/08/18 07/11/18 Terazosin HCl 1 mg PO HS 04/08/18 07/11/18 Atorvastatin [Lipitor] 10 mg PO DAILY 07/11/18 07/11/18 Cholecalciferol [Vitamin D3] 5,000 unit PO DAILY 07/11/18 07/11/18 Allergies Allergy/AdvReac Type Severity Reaction Status Date / Time bisacodyl Allergy suppository Verified 07/11/18 16:14 [From Dulcolax (bisacodyl)] caused severe dizziness, states ok to take pills gabapentin Allergy seizures Verified 07/11/18 16:14 lactulose Allergy Rash/Hives Verified 07/11/18 16:14 Penicillins Allergy Unknown Verified 07/11/18 16:14 Childhood clozapine [From Clozaril] AdvReac Severe Aggression Verified 07/11/18 16:14 Review of Systems ROS Statement: Those systems with pertinent positive or pertinent negative responses have been documented in the HPI. ROS Other: All systems not noted in ROS Statement are negative. Constitutional: Denies: fever Eyes: Denies: eye pain ENT: Denies: ear pain Respiratory: Denies: cough Cardiovascular: Denies: chest pain Endocrine: Denies: fatigue Gastrointestinal: Reports: abdominal pain (Suprapubic discomfort) Genitourinary: Denies: urgency, dysuria, hematuria Musculoskeletal: Denies: back pain Skin: Denies: rash Neurological: Denies: weakness Past Medical History Past Medical History: Asthma, Diabetes Mellitus, GERD/Reflux, GI Bleed, Hypertension, Osteoarthritis (OA), Seizure Disorder, Skin Disorder, Sleep Apnea/ CPAP/BIPAP Additional Past Medical History / Comment(s): wound rt great toe,,LAST SEIZURE 28 YRS AGO. chronic back/neck pain. DOES NOT USE CPAP. SPINAL STENOSIS, DDD IN BACK, SCOLIOSIS, IBS, psoriasis, frequent urination, chronic diarrhea/ constipation issues, schizophrenia,depression, add/adhd., History of Any Multi-Drug Resistant Organisms: None Reported Past Surgical History: Cholecystectomy, Heart Catheterization, Tonsillectomy Additional Past Surgical History / Comment(s): PAIN PROCEDURES, colonscopy with polyp removal 12/03/17 with repair and transfusion , Past Anesthesia/Blood Transfusion Reactions: Motion Sickness Past Psychological History: ADD/ADHD, Schizophrenia, Depression, Schizophrenia Smoking Status: Current every day smoker Past Alcohol Use History: None Reported Past Drug Use History: None Reported - Past Family History Father History Unknown: Yes Family Medical History: Unable to Obtain Additional Family Medical History / Comment(s): pt has'nt seen his father since he was age 5 Mother History Unknown: Yes Family Medical History: No Reported History Additional Family Medical History / Comment(s): Mother at age 55yrs of [place]. General Exam Limitations: no limitations General appearance: alert, in no apparent distress Head exam: Present: atraumatic Eye exam: Present: normal appearance, PERRL ENT exam: Present: normal oropharynx Neck exam: Present: normal inspection Respiratory exam: Present: normal lung sounds bilaterally Cardiovascular Exam: Present: regular rate, normal rhythm GI/Abdominal exam: Present: soft, tenderness (Mild tenderness to the suprapubic region), normal bowel sounds. Absent: distended, guarding, rebound, rigid, pulsatile mass Extremities exam: Present: normal inspection. Absent: pedal edema, calf tenderness Neurological exam: Present: alert Psychiatric exam: Present: normal affect, normal mood Skin exam: Present: normal color Course Vital Signs 07/11/18 15:30 Temperature 98.3 F Pulse Rate 93 Respiratory 20 Rate Blood Pressure 165/70 O2 Sat by Pulse 99 Oximetry - Reevaluation(s) Reevaluation #1: 07/11/18 15:49 Patient adamantly refuses any IV contrast stating it has previously almost killed him. Medical Decision Making - Medical Decision Making Patient reevaluated and resting comfortably in bed. Patient does admit that this is a fairly chronic problem for him. Patient updated on results and need for follow-up. - Lab Data Result diagrams: 07/11/18 15:55 07/11/18 15:55 Lab Results 07/11/18 07/11/18 07/11/18 Range/Units 15:55 15:55 15:55 WBC 7.6 (3.8-10.6) k/uL RBC 4.59 (4.30-5.90) m/uL Hgb 13.5 (13.0-17.5) gm/dL Hct 38.3 L (39.0-53.0) % MCV 83.5 (80.0-100.0) fL MCH 29.4 (25.0-35.0) pg MCHC 35.3 (31.0-37.0) g/dL RDW 13.8 (11.5-15.5) % Plt Count 129 L (150-450) k/uL Neutrophils % 61 % Lymphocytes % 29 % Monocytes % 6 % Eosinophils % 2 % Basophils % 1 % Neutrophils # 4.6 (1.3-7.7) k/uL Lymphocytes # 2.2 (1.0-4.8) k/uL Monocytes # 0.5 (0-1.0) k/uL Eosinophils # 0.2 (0-0.7) k/uL Basophils # 0.1 (0-0.2) k/uL Hyperchromasia Slight PT 10.1 (9.0-12.0) sec INR 1.0 (<1.2) APTT 24.6 (22.0-30.0) sec Sodium 136 L (137-145) mmol/L Potassium 3.8 (3.5-5.1) mmol/L Chloride 106 (98-107) mmol/L Carbon Dioxide 23 (22-30) mmol/L Anion Gap 7 mmol/L BUN 19 (9-20) mg/dL Creatinine 0.95 (0.66-1.25) mg/dL Est GFR (CKD-EPI)AfAm >90 (>60 ml/min/1.73 sqM) Est GFR (CKD-EPI)NonAf >90 (>60 ml/min/1.73 sqM) Glucose 116 H (74-99) mg/dL Calcium 9.4 (8.4-10.2) mg/dL Total Bilirubin 1.5 H (0.2-1.3) mg/dL AST 34 (17-59) U/L ALT 20 L (21-72) U/L Alkaline Phosphatase 67 (38-126) U/L Total Protein 6.4 (6.3-8.2) g/dL Albumin 3.8 (3.5-5.0) g/dL Amylase 35 (30-110) U/L Lipase 117 (23-300) U/L Urine Color Urine Appearance (Clear) Urine pH (5.0-8.0) Ur Specific [place] (1.001-1.035) Urine Protein (Negative) Urine Glucose (UA) (Negative) Urine Ketones (Negative) Urine Blood (Negative) Urine Nitrite (Negative) Urine Bilirubin (Negative) Urine Urobilinogen (<2.0) mg/dL Ur Leukocyte Esterase (Negative) Urine RBC (0-5) /hpf Urine WBC (0-5) /hpf Amorphous Sediment (None) /hpf Hyaline Casts (0-2) /lpf Urine Mucus (None) /hpf 07/11/18 Range/Units 15:55 WBC (3.8-10.6) k/uL RBC (4.30-5.90) m/uL Hgb (13.0-17.5) gm/dL Hct (39.0-53.0) % MCV (80.0-100.0) fL MCH (25.0-35.0) pg MCHC (31.0-37.0) g/dL RDW (11.5-15.5) % Plt Count (150-450) k/uL Neutrophils % % Lymphocytes % % Monocytes % % Eosinophils % % Basophils % % Neutrophils # (1.3-7.7) k/uL Lymphocytes # (1.0-4.8) k/uL Monocytes # (0-1.0) k/uL Eosinophils # (0-0.7) k/uL Basophils # (0-0.2) k/uL Hyperchromasia PT (9.0-12.0) sec INR (<1.2) APTT (22.0-30.0) sec Sodium (137-145) mmol/L Potassium (3.5-5.1) mmol/L Chloride (98-107) mmol/L Carbon Dioxide (22-30) mmol/L Anion Gap mmol/L BUN (9-20) mg/dL Creatinine (0.66-1.25) mg/dL Est GFR (CKD-EPI)AfAm (>60 ml/min/1.73 sqM) Est GFR (CKD-EPI)NonAf (>60 ml/min/1.73 sqM) Glucose (74-99) mg/dL Calcium (8.4-10.2) mg/dL Total Bilirubin (0.2-1.3) mg/dL AST (17-59) U/L ALT (21-72) U/L Alkaline Phosphatase (38-126) U/L Total Protein (6.3-8.2) g/dL Albumin (3.5-5.0) g/dL Amylase (30-110) U/L Lipase (23-300) U/L Urine Color Yellow Urine Appearance Clear (Clear) Urine pH 5.5 (5.0-8.0) Ur Specific [place] 1.012 (1.001-1.035) Urine Protein 2+ H (Negative) Urine Glucose (UA) Negative (Negative) Urine Ketones Negative (Negative) Urine Blood Large H (Negative) Urine Nitrite Negative (Negative) Urine Bilirubin Negative (Negative) Urine Urobilinogen 2.0 (<2.0) mg/dL Ur Leukocyte Esterase Negative (Negative) Urine RBC 3 (0-5) /hpf Urine WBC 1 (0-5) /hpf Amorphous Sediment Rare H (None) /hpf Hyaline Casts 3 H (0-2) /lpf Urine Mucus Rare H (None) /hpf - Radiology Data Radiology results: report reviewed (Computed tomography scan of the abdomen pelvis reveals no acute process.) Disposition Clinical Impression: Abdominal pain Disposition: HOME SELF-CARE Condition: Stable Instructions: Abdominal Pain (ED) Additional Instructions: Please follow-up with your primary care physician and stomach doctor in the next couple days for recheck. Return for fevers, increased pain, urinary problems, worsening symptoms or other concerns. Is patient prescribed a controlled substance at d/c from ED?: No Referrals: [facility] [Primary Care Provider] - 1-2 days Time of Disposition: 17:54
[2018-07-11 16:26] LABS: ALT 20 U/L (21-72); AST 34 U/L (17-59); Albumin 3.8 g/dL (3.5-5.0); Alkaline Phosphatase 67 U/L (38-126); Amylase 35 U/L (30-110); Anion Gap 7 mmol/L; Blood Urea Nitrogen 19 mg/dL (9-20); Calcium 9.4 mg/dL (8.4-10.2); Carbon Dioxide 23 mmol/L (22-30); Chloride 106 mmol/L (98-107); Glucose 116 mg/dL (74-99); Lipase 117 U/L (23-300); Potassium 3.8 mmol/L (3.5-5.1); Sodium 136 mmol/L (137-145); Total Bilirubin 1.5 mg/dL (0.2-1.3); Total Protein 6.4 g/dL (6.3-8.2)
[2018-07-11 16:27] LABS: Partial Thromboplastin Time 24.6 sec (22.0-30.0); Prothrombin Time 10.1 sec (9.0-12.0)
[2018-07-11 16:28] LABS: Amorphous Sediment,Urine Rare /hpf; Appearance,Urine Clear (Clear); Bilirubin,Urine Negative (Negative); Blood,Urine Large (Negative); Color,Urine Yellow; Glucose,Urine (UA) Negative (Negative); Hyaline Casts,Urine 3 /lpf (0-2); Ketones,Urine Negative (Negative); Leukocyte Esterase,Urine Negative (Negative); Mucus,Urine Rare /hpf; Nitrite,Urine Negative (Negative); PH, Urine 5.5 (5.0-8.0); Protein,Urine 2+ (Negative); RBC,Urine 3 /hpf (0-5); Specific Gravity,Urine 1.012 (1.001-1.035); WBC,Urine 1 /hpf (0-5)
[2018-07-11 16:30] LABS: Basophils # (A) 0.1 k/uL (0-0.2); Basophils % (A) 1 %; Eosinophils # (A) 0.2 k/uL (0-0.7); Eosinophils % (A) 2 %; HCT 38.3 % (39.0-53.0); HGB 13.5 gm/dL (13.0-17.5); Hyperchromasia Slight; Lymphocytes # (A) 2.2 k/uL (1.0-4.8); Lymphocytes % (A) 29 %; MCH 29.4 pg (25.0-35.0); MCHC 35.3 g/dL (31.0-37.0); MCV 83.5 fL (80.0-100.0); Mean Platelet Volume 6.8; Monocytes # (A) 0.5 k/uL (0-1.0); Monocytes % (A) 6 %; Neutrophils # (A) 4.6 k/uL (1.3-7.7); Neutrophils % (A) 61 %; Platelet Count 129 k/uL (150-450); RBC 4.59 m/uL (4.30-5.90); RDW 13.8 % (11.5-15.5); WBC 7.6 k/uL (3.8-10.6)
--- NOTE | 2018-07-11 17:01 | CT ---
EXAMINATION TYPE: CT abdomen pelvis wo con DATE OF EXAM: 07/11/2018 COMPARISON: 12/25/2017 HISTORY: UTI CT DLP: 1091.4 mGycm Automated exposure control for dose reduction was used. TECHNIQUE: Helical acquisition of images was performed from the lung bases through the pelvis. FINDINGS: Lung bases are clear of infiltrate. There is no pleural effusion. Heart size is normal. There is no p ericardial effusion. There is 2 mm very low density nodule left lower lobe unchanged. This is also st able compared to 08/29/2017. Liver appears normal. Spleen is enlarged and measures 15.5 cm. There is no evidence of pancreatic mas s. Bile ducts are not dilated. The stomach appears normal. There is no adrenal mass. The kidneys have normal size and contour. There is no hydronephrosis. Urete rs are not dilated. Bladder distends smoothly. There is no inguinal hernia. There is no free fluid in the pelvis. I see no intestinal wall thickening. There are no dilated loops. There is no mesenteric edema or adenopathy. I see no evidence of a renal calculus. Appendix appears normal. There is L5 spondylolysis with first-degree L5-S1 spondylolisthesis. This is unchanged. IMPRESSION: NO RENAL STONE OR OBSTRUCTION. URINARY BLADDER IS DILATED ON THE OLD EXAM AND NOT DILATED ON TODAY'S EXAM. THERE IS STABLE SPLENOMEGALY.
[2018-07-11] MEDS ORDERED: ACETAMINOPHEN TAB 500 MG TAB PO STA (17:53)
[2018-07-11 18:13] VITALS: BP 157/80; PULSE 82; RESP 18; TEMP 97.8
== END 2018-07-11 18:13 | disposition home or self-care (01) ==
LOC: EC 15:27
DX: R10.30 Lower abdominal pain, unspecified (principal); F32.9 Major depressive disorder, single episode, unspecified; G40.909 Epilepsy, unspecified, not intractable, without status epilepticus; K21.9 Gastro-esophageal reflux disease without esophagitis; F20.9 Schizophrenia, unspecified; E11.9 Type 2 diabetes mellitus without complications; I10 Essential (primary) hypertension; G47.30 Sleep apnea, unspecified; F17.200 Nicotine dependence, unspecified, uncomplicated; Z79.4 Long term (current) use of insulin; Z79.899 Other long term (current) drug therapy; Z88.0 Allergy status to penicillin; Z88.8 Allergy status to other drugs, medicaments and biological substances; Z90.49 Acquired absence of other specified parts of digestive tract; Z95.5 Presence of coronary angioplasty implant and graft
CPT/HCPCS: 36415; 74176; 80053; 81001; 82150; 83690; 85025; 85610; 85730; 87086; 96360; 96361; 99284

== ENCOUNTER 2018-07-20 05:29 | Inpatient (IN) | payer MEDICARE, OTHER ==
--- NOTE | 2018-07-20 05:41 | ED ---
General Adult HPI - General Stated complaint: Bed Bugs Bites Time Seen by Provider: 07/20/18 05:40 - History of Present Illness Initial comments: Jude is an obese 47-year-old male with past medical history as documented who presents to the emergency department today for evaluation of sores and redness of his bilateral lower extremities when she believes may be bedbug bites. In addition he has a sore of his right great toe as well as necrosis of the tissue of his right second toe which she has attempted to peel off revealing underlying live bleeding tissue. Patient has significant underlying psychiatric illness and is a very poor historian. He reports he woke up this morning covered in bed bugs and bites from bedbugs. He didn't call 911. EMS brought him to the hospital where he was cleansed and then evaluated. Patient states that he was going to try to amputate his own towed because he believed it was but it began to hurt. - Related Data Home Medications Medication Instructions Recorded Confirmed RX: Lisinopril [Zestril] 10 mg PO QAM 06/06/14 07/20/18 RX: INSULIN LISPRO (HumaLOG) See Protocol SQ AC-TID 08/16/15 07/20/18 [humaLOG] RX: Divalproex Sodium [Depakote] 500 mg PO TID 01/10/17 07/20/18 RX: Hyoscyamine Sulfate [Levsin] 0.125 mg PO Q4H PRN 11/29/17 07/20/18 RX: Omeprazole 20 mg PO BID 11/30/17 07/20/18 Oxybutynin Xl [Ditropan Xl] 5 mg PO BID 01/10/18 07/20/18 RX: Sucralfate [Carafate] 1 gm PO BID 01/10/18 07/20/18 Lidocaine 5% Oint [Xylocaine 5% 1 applic TOPICAL QID PRN 04/08/18 07/20/18 Oint] Ondansetron [Zofran] 4 mg PO Q8HR PRN 04/08/18 07/20/18 RX: Insulin Glargine [Lantus] 30 unit SQ HS PRN 04/08/18 07/20/18 RX: Simethicone [Gas-X] 125 mg PO QID PRN 04/08/18 07/20/18 Rexulti(Unknown Dose) 1 tab PO DAILY 04/08/18 07/20/18 Tamsulosin HCl [Flomax] 0.4 mg PO DAILY 04/08/18 07/20/18 Atorvastatin [Lipitor] 10 mg PO DAILY 07/11/18 07/20/18 Cholecalciferol [Vitamin D3] 5,000 unit PO DAILY 07/11/18 07/20/18 Allergies Allergy/AdvReac Type Severity Reaction Status Date / Time bisacodyl Allergy suppository Verified 07/11/18 16:14 [From Dulcolax (bisacodyl)] caused severe dizziness, states ok to take pills gabapentin Allergy seizures Verified 07/11/18 16:14 lactulose Allergy Rash/Hives Verified 07/11/18 16:14 Penicillins Allergy Unknown Verified 07/11/18 16:14 Childhood clozapine [From Clozaril] AdvReac Severe Aggression Verified 07/11/18 16:14 Review of Systems ROS Statement: Those systems with pertinent positive or pertinent negative responses have been documented in the HPI. ROS Other: All systems not noted in ROS Statement are negative. Limitations: ROS unobtainable due to patients medical condition Past Medical History Past Medical History: Asthma, Diabetes Mellitus, GERD/Reflux, GI Bleed, Hypertension, Osteoarthritis (OA), Seizure Disorder, Skin Disorder, Sleep Apnea/ CPAP/BIPAP Additional Past Medical History / Comment(s): wound rt great toe,,LAST SEIZURE 28 YRS AGO. chronic back/neck pain. DOES NOT USE CPAP. SPINAL STENOSIS, DDD IN BACK, SCOLIOSIS, IBS, psoriasis, frequent urination, chronic diarrhea/ constipation issues, schizophrenia,depression, add/adhd., History of Any Multi-Drug Resistant Organisms: None Reported Past Surgical History: Cholecystectomy, Heart Catheterization, Tonsillectomy Additional Past Surgical History / Comment(s): PAIN PROCEDURES, colonscopy with polyp removal 12/03/17 with repair and transfusion , Past Anesthesia/Blood Transfusion Reactions: Motion Sickness Past Psychological History: ADD/ADHD, Schizophrenia, Depression, Schizophrenia Smoking Status: Current every day smoker Past Alcohol Use History: None Reported Past Drug Use History: None Reported - Past Family History Father History Unknown: Yes Family Medical History: Unable to Obtain Additional Family Medical History / Comment(s): pt has'nt seen his father since he was age 5 Mother History Unknown: Yes Family Medical History: No Reported History Additional Family Medical History / Comment(s): Mother at age 55yrs of [place]. General Exam - General Exam Comments Initial Comments: Physical Exam GENERAL: Patient is well-developed and well-nourished. Appears older than stated age HENT: Normocephalic, Atraumatic. EYES: PERRL, EOMI PULMONARY: Unlabored respirations. CARDIOVASCULAR: There is a regular rate and rhythm without any murmurs gallops or rubs. ABDOMEN: Obese, nontender SKIN: Multiple sores on bilateral lower extremities, erythema and weeping from the right lower extremity consistent with cellulitis right great toe wound poorly healing, right second toe with area of necrosis which a patient is attempted to self amputate : Deferred NEUROLOGIC: Patient is alert and oriented x3. Moving all extremities spontaneously MUSCULOSKELETAL: Lower extremity edema PSYCHIATRIC: Labile, easily agitated Limitations: no limitations Course Vital Signs 07/20/18 05:41 Temperature 99.2 F Pulse Rate 109 H Respiratory 22 Rate Blood Pressure 168/70 O2 Sat by Pulse 97 Oximetry Medical Decision Making - Medical Decision Making Patient was seen and evaluated history is obtained from the patient and EMS, patient is a very poor historian so his medical record was reviewed. Physical exam does reveal nonhealing ulcers of the right foot, the second toe appears to have some possible dry gangrene or significant caseating cellulitis the patient has attempted to amputate the pad of the toe Labs and imaging were ordered Patient care was discussed with Dr. Tate who accepts the admission for cellulitis of the bilateral lower extremities with nonhealing diabetic ulcer likely require surgical intervention of the right foot - Lab Data Result diagrams: 07/20/18 06:46 Lab Results 07/20/18 Range/Units 06:46 WBC 7.7 (3.8-10.6) k/uL RBC 3.75 L (4.30-5.90) m/uL Hgb 11.0 L (13.0-17.5) gm/dL Hct 31.0 L (39.0-53.0) % MCV 82.7 (80.0-100.0) fL MCH 29.5 (25.0-35.0) pg MCHC 35.6 (31.0-37.0) g/dL RDW 13.3 (11.5-15.5) % Plt Count 133 L (150-450) k/uL Neutrophils % 67 % Lymphocytes % 20 % Monocytes % 8 % Eosinophils % 3 % Basophils % 1 % Neutrophils # 5.1 (1.3-7.7) k/uL Lymphocytes # 1.5 (1.0-4.8) k/uL Monocytes # 0.6 (0-1.0) k/uL Eosinophils # 0.2 (0-0.7) k/uL Basophils # 0.1 (0-0.2) k/uL Disposition Clinical Impression: Cellulitis of both lower extremities, Diabetic ulcer of right great toe, Schizophrenia, Diabetic ulcer of right foot associated with diabetes mellitus due to underlying condition, limited to breakdown of skin Disposition: ADMITTED IP TO THIS [facility] Referrals: None,Stated [REFERRING] - 1-2 days
[2018-07-20] MEDS ORDERED: CEPHALEXIN 500 MG CAP PO STA (06:25)
[2018-07-20] MEDS ORDERED: SULFAMETHOX-TMP 800-160MG 1 EACH TAB PO STA (06:25)
[2018-07-20] MEDS ORDERED: VANCOMYCIN IV PER PHARMACY 1 EACH MISC MISCELLANE PRN (06:27)
[2018-07-20] MEDS ORDERED: CEFEPIME 2 GM in SODIUM CHLORIDE 0.9% 50 ML IVPB STA (06:27)
[2018-07-20 07:00] LABS: Basophils # (A) 0.1 k/uL (0-0.2); Basophils % (A) 1 %; Eosinophils # (A) 0.2 k/uL (0-0.7); Eosinophils % (A) 3 %; Lymphocytes # (A) 1.5 k/uL (1.0-4.8); Lymphocytes % (A) 20 %; MCH 29.5 pg (25.0-35.0); MCHC 35.6 g/dL (31.0-37.0); MCV 82.7 fL (80.0-100.0); Mean Platelet Volume 7.6; Monocytes # (A) 0.6 k/uL (0-1.0); Monocytes % (A) 8 %; Neutrophils # (A) 5.1 k/uL (1.3-7.7); Neutrophils % (A) 67 %; Platelet Count 133 k/uL (150-450); RBC 3.75 m/uL (4.30-5.90); RDW 13.3 % (11.5-15.5); WBC 7.7 k/uL (3.8-10.6)
[2018-07-20] MEDS ORDERED: VANCOMYCIN 2,000 MG in SODIUM CHLORIDE 0.9% 500 ML 500 ML IVPB ONE (07:00)
--- NOTE | 2018-07-20 07:10 | XR ---
EXAMINATION TYPE: XR toes RT , 3 VIEWS DATE OF EXAM ORDERED: 07/20/2018 HISTORY: Pain concern for osteo. COMPARISON: None. FINDINGS: There are hammertoe deformities of the second through fifth digits. There is a prominent e rosion in the interphalangeal joint of the great toe. There is degenerative change within the great t oe. No definite bony destructive lesion is seen. There is a dressing on the skin. IMPRESSION: 1. NO ACUTE OSSEOUS LESION. 2. DEGENERATIVE CHANGE. 3. HAMMERTOE DEFORMITIES.
[2018-07-20 07:20] LABS: Calcium 8.6 mg/dL (8.4-10.2); Potassium 3.6 mmol/L (3.5-5.1); Total Bilirubin 1.2 mg/dL (0.2-1.3); Total Protein 5.7 g/dL (6.3-8.2)
[2018-07-20] MEDS ORDERED: NALOXONE 0.4 MG/ML 1 ML VIAL IV PRN (07:20)
[2018-07-20 07:53] LABS: C Reactive Protein 193.3 mg/L (<10.0)
[2018-07-20] MEDS ORDERED: LORazepam 2 MG/ML INJ IV STA (08:33)
[2018-07-20 15:05] VITALS: BMI 45.3
[2018-07-20 17:47] LABS: Glucose,Whole Blood 160 mg/dL (75-99)
[2018-07-20] MEDS: LORazepam 2 MG/ML INJ IV PRN ×2 (18:04→21:18)
[2018-07-20] MEDS: INSULIN ASPART 100 UNIT/ML 1 ML 10 ML VIAL SQ SCH ×2 (18:06→22:02)
[2018-07-20] MEDS ORDERED: NON-FORMULARY DRUG (Insulin Glargine 30 UNIT) SQ PRN (19:15)
[2018-07-20] MEDS ORDERED: SENNOSIDES 8.6 MG TAB PO PRN (19:15)
[2018-07-20 20:05] LABS: Glucose,Whole Blood 154 mg/dL (75-99)
[2018-07-20] MEDS ORDERED: INSULIN ASPART 100 UNIT/ML 1 ML 10 ML VIAL SQ SCH (21:00)
[2018-07-20] MEDS: NON-FORMULARY DRUG (Brexpiprazole [Rexulti] 2 MG) PO SCH (21:51)
[2018-07-20] MEDS: HEPARIN SODIUM,PORCINE 5,000 UNIT/ML 1 ML VIAL SQ SCH (22:01)
[2018-07-20] MEDS: VORTIOXETINE HYDROBROMIDE 20 MG TABLET PO SCH (22:02)
[2018-07-20] MEDS: FAMOTIDINE 20 MG TAB PO SCH (22:02)
[2018-07-20] MEDS: DIVALPROEX 500 MG TABLET.DR PO SCH (22:02)
[2018-07-20] MEDS: clonazePAM 1 MG TAB PO SCH (22:03)
--- NOTE | 2018-07-20 23:05 | HP ---
HISTORY AND PHYSICAL HISTORY: Jude Graham is a 47-year-old male who presented to the ER at [facility] with swelling of his right lower extremity. He had redness bilaterally in his old lower extremities, which he thought was due to bed bites. He had a sore on his right great toe and necrosis of his right 2nd toe. He also had been having some shortness of breath. He has a history of psychiatric illness and is seen at the [facility] by nurse practitioner, Simona Burden. He had no fever or chills and was admitted for further evaluation. PAST MEDICAL HISTORY: Positive for asthma, diabetes mellitus, gastroesophageal reflux disease, GI bleed, obstructive sleep apnea, seizure disorder, osteoarthritis, skin rashes, wound of his right great toe, history of seizures, tonsillectomy, cardiac cath, cholecystectomy, schizophrenia, ADD, depression. FAMILY HISTORY: His positive for coronary artery disease in his mother who at age 55. SOCIAL HISTORY: Patient is an everyday smoker. He does not drink alcohol excessively. MEDICATIONS: Prior to admission: 1. Senna. 2. Klonopin. 3. Trintellix. 4. Claritin. 5. Vibramycin. 6. Brexpiprazole. 7. Omeprazole. 8. Lantus insulin. 9. Humalog. 10.Depakote. 11.Vitamin D3. 12.Lipitor. REVIEW OF SYSTEMS: Positive for obesity. The patient is allergic to bisacodyl, gabapentin, lactulose, penicillin, and clozapine. PHYSICAL EXAMINATION: Blood pressure is 141/78, respiratory rate is 16, pulse rate 99, temperature 100.3 degrees Fahrenheit, O2 saturation on room air is 99%. HEENT reveals pupils that are equal. Chest reveals occasional wheeze. Cardiovascular system is S1, S2. Abdomen is soft. There is erythema of both lower extremities, more on the right than the left, with surgical dressing over his right foot. LABS: Reveal a white count of 7.7, hemoglobin of 11, platelet count of 133. Sodium 130, potassium 3.6, chloride 96, bicarb 27, BUN 21, creatinine 1.19, glucose is 160. X-ray of his toe shows no acute osseous lesions with hammertoe deformities seen. IMPRESSION: 1. Right lower extremity cellulitis with wound of the right foot. 2. Asthma with chronic obstructive pulmonary disease. 3. Nicotine dependence. 4. Schizophrenia. 5. Anxiety and depression. 6. Attention deficit hyperactivity disorder. At this point in time, we will keep him on vancomycin, have him seen by ID. Keep him on insulin long-acting as well as sliding scale. GI and DVT prophylaxis and anti- psychiatric medications. Have him seen by ID and Vascular Surgery. Depending on how he does, we shall make further changes to his care. ISAURA / BRIANN: [id number] /
[2018-07-20] MEDS: VANCOMYCIN 2,250 MG in SODIUM CHLORIDE 0.9% 500 ML 500 ML IVPB SCH (23:43)
[2018-07-21] MEDS: LORazepam 2 MG/ML INJ IV PRN ×5 (01:47→22:33)
[2018-07-21 07:21] LABS: Glucose,Whole Blood 136 mg/dL (75-99)
[2018-07-21] MEDS: INSULIN ASPART 100 UNIT/ML 1 ML 10 ML VIAL SQ SCH ×4 (08:23→22:33)
[2018-07-21] MEDS: DIVALPROEX 500 MG TABLET.DR PO SCH ×3 (08:34→22:33)
[2018-07-21] MEDS: FAMOTIDINE 20 MG TAB PO SCH ×2 (08:34→22:33)
[2018-07-21] MEDS: NICOTINE 14MG/24HR PATCH TRANSDERM SCH (08:34)
[2018-07-21] MEDS: LORATADINE 10 MG TAB PO SCH (08:34)
[2018-07-21] MEDS: HEPARIN SODIUM,PORCINE 5,000 UNIT/ML 1 ML VIAL SQ SCH ×2 (08:34→22:32)
[2018-07-21] MEDS: ATORVASTATIN 10 MG TAB PO SCH (08:34)
[2018-07-21] MEDS: CHOLECALCIFEROL 1,000 UNIT TAB PO SCH (08:34)
[2018-07-21] MEDS: DOXYCYCLINE 100 MG CAP PO SCH ×2 (08:35→23:52)
--- NOTE | 2018-07-21 11:50 | NM ---
EXAMINATION TYPE: NM bone 3 phase DATE OF EXAM: 07/21/2018 COMPARISON: Correlation radiographs 01/24/2018 HISTORY: 47-year-old male open sores along bilateral anterior toes, assess for osteomyelitis. Technique: Triple phase bone scintigraphy was performed following the injection of 25.1 mCi Tc 99m MD P. Immediate anterior images were obtained of the bilateral distal lower extremities. Patient refuse d any further imaging. FINDINGS: Flow images show slight asymmetric hyperemia along the right forefoot. Patient refused any further im aging. IMPRESSION: Incomplete, nondiagnostic exam. There is suggestion of some slight asymmetric hyperemia right forefoo t on the flow images.
[2018-07-21 12:23] LABS: Glucose,Whole Blood 182 mg/dL (75-99)
[2018-07-21 12:57] LABS: Hemoglobin A1C 7.5 % (4.0-6.0)
--- NOTE | 2018-07-21 13:27 | P.CN ---
Psychiatric Consult - . Consult date: 07/21/18 Consult:: evaluate, Psych history 07/21/18 10:09 Assessment and Plan Assessment: Jude is an obese 47-year-old male with past medical history as documented who presents to the emergency department today for evaluation of sores and redness of his bilateral lower extremities when he believes may be bedbug bites. In addition he has a sore of his right great toe as well as necrosis of the tissue of his right second toe which she has attempted to peel off revealing underlying live bleeding tissue. Patient has significant underlying psychiatric illness and is a very poor historian. He reports he woke up this morning covered in bed bugs and bites from bedbugs. He didn't call 911. EMS brought him to the hospital where he was cleansed and then evaluated. Patient states that he was going to try to amputate his own towed because he believed it was but it began to hurt. Patient is a poor historian. New to our psychiatric service. - Related Data Home Medications Medication Instructions Recorded Confirmed RX: Lisinopril [Zestril] 10 mg PO QAM 06/06/14 07/20/18 RX: INSULIN LISPRO (HumaLOG) See Protocol SQ AC-TID 08/16/15 07/20/18 [humaLOG] RX: Divalproex Sodium [Depakote] 500 mg PO TID 01/10/17 07/20/18 RX: Hyoscyamine Sulfate [Levsin] 0.125 mg PO Q4H PRN 11/29/17 07/20/18 RX: Omeprazole 20 mg PO BID 11/30/17 07/20/18 Oxybutynin Xl [Ditropan Xl] 5 mg PO BID 01/10/18 07/20/18 RX: Sucralfate [Carafate] 1 gm PO BID 01/10/18 07/20/18 Lidocaine 5% Oint [Xylocaine 5% 1 applic TOPICAL QID PRN 04/08/18 07/20/18 Oint] Ondansetron [Zofran] 4 mg PO Q8HR PRN 04/08/18 07/20/18 RX: Insulin Glargine [Lantus] 30 unit SQ HS PRN 04/08/18 07/20/18 RX: Simethicone [Gas-X] 125 mg PO QID PRN 04/08/18 07/20/18 Rexulti(Unknown Dose) 1 tab PO DAILY 04/08/18 07/20/18 Tamsulosin HCl [Flomax] 0.4 mg PO DAILY 04/08/18 07/20/18 Atorvastatin [Lipitor] 10 mg PO DAILY 07/11/18 07/20/18 Cholecalciferol [Vitamin D3] 5,000 unit PO DAILY 07/11/18 07/20/18 Allergies Allergy/AdvReac Type Severity Reaction Status Date / Time bisacodyl Allergy suppository Verified 07/11/18 16:14 [From Dulcolax (bisacodyl)] caused severe dizziness, states ok to take pills gabapentin Allergy seizures Verified 07/11/18 16:14 lactulose Allergy Rash/Hives Verified 07/11/18 16:14 Penicillins Allergy Unknown Verified 07/11/18 16:14 Childhood clozapine [From Clozaril] AdvReac Severe Aggression Verified 07/11/18 16:14 Past Medical History Past Medical History: Asthma, Diabetes Mellitus, GERD/Reflux, GI Bleed, Hypertension, Osteoarthritis (OA), Seizure Disorder, Skin Disorder, Sleep Apnea/ CPAP/BIPAP Additional Past Medical History / Comment(s): wound rt great toe,,LAST SEIZURE 28 YRS AGO. chronic back/neck pain. DOES NOT USE CPAP. SPINAL STENOSIS, DDD IN BACK, SCOLIOSIS, IBS, psoriasis, frequent urination, chronic diarrhea/ constipation issues, schizophrenia,depression, add/adhd., History of Any Multi-Drug Resistant Organisms: None Reported Past Surgical History: Cholecystectomy, Heart Catheterization, Tonsillectomy Additional Past Surgical History / Comment(s): PAIN PROCEDURES, colonscopy with polyp removal 12/03/17 with repair and transfusion , Past Anesthesia/Blood Transfusion Reactions: Motion Sickness Past Psychological History: ADD/ADHD, Schizophrenia, Depression, Schizophrenia Smoking Status: Current every day smoker Past Alcohol Use History: None Reported Past Drug Use History: None Reported - Past Family History Father History Unknown: Yes Family Medical History: Unable to Obtain Additional Family Medical History / Comment(s): pt has'nt seen his father since he was age 5 Mother History Unknown: Yes Family Medical History: No Reported History Additional Family Medical History / Comment(s): Mother at age 55yrs of [place]. Mental Status Examination - this is a 47-year-old male seen in his bed and was asked to evaluate his psychiatric stability. He is a chronic mental health patient with a history of schizophrenia who appears odd and withdrawn. General Appearance: [bizarre, appears older than stated age, appears younger than stated age, other] Speech/Language: [spontaneous, slow, rapid, slurred, rambled, mumbling, hesitant , halting, monotone, expressive, mute, loud, soft, other] Attitude/Behavior: [ guarded, iwithdrawn, indifferent] Mood: [anxious, elated, irritable, fearful] Affect: [flat, incongruent, labile, blunted constricted] Orientation: [time, person, place situation] Thought Content: [wnl, Risk Factors: [He is not suicidal (ideations, plan), nor Homicidal (ideations, plan)] Perception: [wnl Thought Processes: [concrete Concentration/Attention Span: [ impaired] [Per observation and interview with the patient] Recent Memory: [impaired] [0 out of 3 in 3 minutes] Remote Memory: [ impaired] [past events, as related history] Intelligence: [below average] [based on history, based on vocabulary, syntax, grammar, and content] Judgement: [ poor] [per patient's behavior/history of present illness] Insight: [poor] [understanding severity of illness/history of present illness] Psychiatric impression: Schizoaffective disorder bipolar type Psychiatric recommendations: Continue his psychiatric medications and follow-up with his outpatient psychiatrist at [facility] Thank you for the consult Matthew Logan D.O. PhD (1) Schizophrenia Current Visit: Yes Status: Acute Code(s): F20.9 - SCHIZOPHRENIA, UNSPECIFIED SNOMED Code(s): 48235447 Time with Patient: Less than 30
--- NOTE | 2018-07-21 15:40 | XR ---
EXAMINATION TYPE: XR chest 1V DATE OF EXAM: 07/21/2018 COMPARISON: 12/31/2017 HISTORY: 47-year-old male with cough TECHNIQUE: Single frontal view of the chest is obtained. FINDINGS: Heart normal size. Aorta within normal limits. Prominent interstitium with some hazy left basilar de nsity. Lung volumes diminished. No sizable pleural effusion. IMPRESSION: Interstitial changes could be due to crowding from hypoventilatory changes. Consider repeat high qual ity PA view when the patient is able. Underlying bronchitis or other inflammatory interstitial proces s is difficult to exclude at this time.
[2018-07-21] MEDS: VANCOMYCIN 2,250 MG in SODIUM CHLORIDE 0.9% 500 ML 500 ML IVPB SCH (16:50)
[2018-07-21 17:35] LABS: Glucose,Whole Blood 170 mg/dL (75-99)
--- NOTE | 2018-07-21 18:18 | CONS ---
CONSULTATION 47-year-old gentleman who has been admitted with a history of ulcer right foot big toe and second toe callus formation with he believes that he has been bitten by bed bugs on his lower extremity. The patient was seen by Dr. Mccauley. The patient has been admitted and also a psych consult because patient has history of possible schizophrenia. PAST MEDICAL HISTORY: Includes history of diabetes mellitus, hypertension, osteoarthritis, seizure disorder, sleep apnea. EXAMINATION: NECK: Supple. No bruit appreciated. CHEST: Clear to auscultation. ABDOMEN: Soft. Femorals are 1+. The patient has a superficial ulcer on the right foot big toe and there is callus formation on the right foot second toe. PLAN: Discussed with Dr. Mccauley. The patient will need local wound care. At this point, no role of any surgical intervention. If he needs surgical intervention, we will proceed. The patient will be managed for local wound care by Infectious Disease. MMODL / IJN: [id number] /
--- NOTE | 2018-07-21 21:39 | PN ---
PROGRESS NOTE SUBJECTIVE: 47-year-old white male who has been very abusive verbally to the nurses overnight. Psychiatry consult is pending. Patient seen by Dr. Mccauley. Psych consult for schizophrenia. Home medicines will be continued. Medications have been adjusted per psychiatry and Neurology. Vascular saw today, Dr. Zhang, local wound care. No surgical intervention is needed. Infectious Disease will monitor this. His bone scan was negative for osteomyelitis. ASSESSMENT: 1. Cellulitis and chronic wounds of the feet. 2. Schizophrenia. 3. Delirium. 4. Diabetes mellitus. 5. Chronic anemia. Await Infectious Disease to clear for discharge. Continue current treatment. MMODL / IJN: [id number] /
[2018-07-21 21:52] LABS: Glucose,Whole Blood 187 mg/dL (75-99)
--- NOTE | 2018-07-21 22:18 | CONS ---
CONSULTATION DATE OF CONSULTATION: 07/21/2018 CHIEF COMPLAINT: Altered mental status. HISTORY OF PRESENT ILLNESS: The patient is a 47-year-old male who is being evaluated by the neurology service per the request of Dr. Nik Tate for altered mental status. The patient was brought into [facility] Emergency Room with the main complaint of right lower extremity redness and swelling. According to the emergency room note, the patient was found to have bilateral lower extremity swelling and skin irritation. According to the chart, the patient woke up and found himself covered in bedbugs. EMS was called and he was brought into the emergency room for further management. His CBC showed no leukocytosis, but he did have anemia with a hemoglobin of 11.0 and hematocrit of 31%. He also had thrombocytopenia at 133,000. His comprehensive metabolic profile showed hyponatremia at 130, hyperglycemia at 129, and low protein and albumin at 5.7 and 3.0, respectively. His CRP was significantly elevated at 193. His serum Depakote level was 27.4. He states that he is on Depakote for mood stabilization. He reports a remote history of seizures, but he has not had any seizures in over 25 years. At the time of my evaluation, the patient was found to be sleeping in bed. He is arousable but is drowsy. He states that he has been having sleep deprivation recently. No seizure-like activity has been described since his admission. The patient has been started on antibiotics for his cellulitis. PAST MEDICAL HISTORY: 1. Asthma. 2. Diabetes. 3. Gastroesophageal reflux disease. 4. History of GI bleeding. 5. Obstructive sleep apnea. 6. Remote seizure history. 7. Osteoarthritis. 8. Non-healing wound in his right great toe. 9. Schizophrenia. 10.Attention deficit disorder. 11.Depression. 12.History of tonsillectomy and cholecystectomy. SOCIAL HISTORY: The patient is an everyday smoker. He denies any alcohol or IV drug use. FAMILY HISTORY: Positive for heart disease. HOME MEDICATIONS: Reviewed in the chart. ALLERGIES: 1. GABAPENTIN. 2. LACTULOSE. 3. PENICILLIN. 4. CLOZARIL. REVIEW OF SYSTEMS: CONSTITUTIONAL: Positive for fatigue. He denies any fevers. EYES: Negative. ENT: Negative. CARDIOVASCULAR: Negative. RESPIRATORY: Positive for occasional shortness of breath. NEUROLOGICAL: As mentioned above. GASTROINTESTINAL: Positive for occasional heartburn. GENITOURINARY: Negative. MUSCULOSKELETAL: Positive for occasional joint pain. ENDOCRINE: Positive for diabetes. DERMATOLOGICAL: As mentioned above. PSYCHIATRIC: As mentioned above. PHYSICAL EXAMINATION: Vital signs show a temperature of 98.2, pulse 108, respiration 16, blood pressure 120/66. GENERAL APPEARANCE: The patient is a well developed male who appears to be drowsy. HEENT: Normocephalic, atraumatic. No facial asymmetry is seen. NECK: Supple with no masses felt. CARDIOVASCULAR: Regular rate and rhythm. ABDOMEN: Nontender, nondistended. Extremities showed erythema with a dressing over his right lower extremity. NEUROLOGICAL EXAM: The patient is drowsy but is arousable and oriented to person and place. He thought it was the year 2014 but knew we were in the month of July. No lateralizing weakness is seen. Sensory exam was normal to light touch in all 4 extremities. No tremors or seizure-like activity is seen. No facial asymmetry is noticed on cranial nerve testing. IMPRESSION: 1. Altered mental status. 2. Likely infectious encephalopathy. 3. Cellulitis. 4. Mood disorder. RECOMMENDATION: The patient's altered mental status is likely multifactorial, given his cellulitis and significant sleep deprivation. His mild hyponatremia may also be contributing to his symptoms. Continue IV hydration as tolerated. Continue antibiotic therapy. The patient does have multiple psychiatric disorders and Psychiatry has been consulted. From a neurology standpoint, I will order a CT scan of the brain and EEG. Continue neuro checks. His Depakote level is subtherapeutic, but he is on this for mood stabilization. As mentioned above, he is not on Depakote for any seizure disorder, as he has been seizure-free for over 25 years. I will continue to follow with you. Further recommendations to follow. Thank you for allowing me to participate in the care of your patient. If you have any questions, please feel free to contact me. MMODL / IJN: [id number] /
[2018-07-21] MEDS: clonazePAM 1 MG TAB PO SCH (22:32)
[2018-07-21] MEDS: NON-FORMULARY DRUG (Brexpiprazole [Rexulti] 2 MG) PO SCH (22:32)
[2018-07-21] MEDS: VORTIOXETINE HYDROBROMIDE 20 MG TABLET PO SCH (23:52)
[2018-07-22 02:22] VITALS: RESP 16
--- NOTE | 2018-07-22 06:37 | CONS ---
CONSULTATION DATE OF SERVICE: 07/21/2018 REASON FOR CONSULTATION: 1. Right second and fifth toe wound. 2. Bilateral leg cellulitis. HISTORY OF PRESENT ILLNESS: The patient is a 47-year-old male who apparently did develop a blister on his right fifth toe that the patient said he cut it off himself and there was drainage of some pus. Subsequently started having more swelling and redness to bilateral foot area most to the right side with some erythema to the right leg. The patient had been complaining of pain to the toe and the leg more of a dull aching pain 3 to 4 out of 10, and no radiation, currently with no drainage. He did have some fever with chills with these symptoms. The patient presented to the [facility] ER. The patient has been evaluated by the ER physician and patient did have x-rays of the foot that was negative for any bony changes. He has been started on vancomycin and admitted hospital. Infectious Disease was consulted for further recommendation regarding antibiotic therapy. The patient did have a low-grade fever of 100.3 last evening and his white count was significantly elevated. The patient himself is not a very good historian so most of the information has been by thorough review of the chart and talking to nursing staff. REVIEW OF SYSTEMS: CONSTITUTIONAL: Positive for weakness along with the fever. EYES: No complaint. ENT: No complaint. RESPIRATORY: No complaint. CARDIOVASCULAR: No complaint. GENITOURINARY: No complaint. GASTROINTESTINAL: No complaint. MUSCULOSKELETAL: As per HPI. INTEGUMENTARY: As per HPI. PSYCHOLOGICAL: No complaint. ENDOCRINE: No complaint. NEUROLOGIC: No complaint. PAST MEDICAL HISTORY: Asthma, diabetes mellitus, gastroesophageal reflux disease, GI bleed, hypertension, osteoarthritis, seizure disorder and sleep apnea. PAST SURGICAL HISTORY: Cholecystectomy, heart catheterization, tonsillectomy, colonoscopy with polypectomy. SOCIAL HISTORY: Patient currently an every day smoker. No drinking or drug use. PAST PSYCHOLOGICAL HISTORY: Positive for ADHD, schizophrenia. FAMILY HISTORY: Mother at age of 55 from an [place]. ALLERGIES: Allergies to GABAPENTIN, LACTULOSE, PENICILLIN, CLOZAPINE. MEDICATION: Medications include the patient is currently on Lipitor, vitamin D3, clonazepam, Depakote, doxycycline, heparin, Claritin, Ativan, Narcan and vancomycin pharmacy to dose. PHYSICAL EXAMINATION: On examination, blood pressure is 186/80 with a pulse of 86, temperature 98, T-max 100.3. He is 98% on room air. General description is a middle-aged male lying in bed in no distress with no tachypnea or accessory muscle of respiration use. HEENT examination shows slight pallor. No scleral icterus. Oral mucous membrane is dry. No pharyngeal erythema or thrush. NECK: Trachea central. No thyromegaly. LUNGS: Unlabored breathing, clear to auscultation anteriorly. No wheeze or crackles. HEART: S1, S2. Regular rate and rhythm. No added sounds. ABDOMEN: Soft, no tenderness. No guarding or rigidity. EXTREMITIES: Bilateral legs with swelling with some erythematous rash, minimal redness. The patient did have a open wound to the right fifth toe from ruptured blister and did have hammertoe deformity of the right second toe with some swelling, minimal redness, no drainage. NEUROLOGICAL: Patient is awake, alert, oriented x2. Mood and affect normal. LABS: Hemoglobin is 11, white count 7.5. BUN of 21, creatinine is 1.19. Electrolytes have been normal. CRP is 193. X-rays were negative for any bony changes and the patient refused a bone scan. DIAGNOSTIC IMPRESSION AND PLAN: 1. Patient admitted to the hospital with bilateral leg swelling and redness and also having a wound to the right fifth toe that apparently started as a blister with pustule formation that the patient opened at home with drainage of an abscess concerning likely from a gram-positive skin saul such as MSSA or MRSA with concern for possible cellulitis and wound infection rather than osteomyelitis as the x-ray did not show any bony changes and the patient refused the bone scan. 2. Patient with PENICILLIN ALLERGY that limits the number of antibiotics that could be safely used. PLAN: 1. Vancomycin pharmacy to dose target of 15 while watching his kidney functions closely. 2. Aquacel Silver dressing to the right fifth toe to which . 3. Silvadene cream to the bilateral leg pressure area twice a day. 4. We will follow up on clinical condition and culture to further adjust medication if needed. Thank you for this consultation. Will follow this patient along with you. MMODL / IJN: [id number] /
[2018-07-22 07:44] LABS: Glucose,Whole Blood 217 mg/dL (75-99)
[2018-07-22 07:58] VITALS: BP 166/73; PULSE 77; TEMP 98
[2018-07-22 08:05] LABS: Anion Gap 2 mmol/L; Blood Urea Nitrogen 14 mg/dL (9-20); Calcium 8.3 mg/dL (8.4-10.2); Carbon Dioxide 29 mmol/L (22-30); Chloride 105 mmol/L (98-107); Glucose 174 mg/dL (74-99); Potassium 4.3 mmol/L (3.5-5.1); Sodium 136 mmol/L (137-145)
[2018-07-22] MEDS: INSULIN ASPART 100 UNIT/ML 1 ML 10 ML VIAL SQ SCH (08:08)
[2018-07-22] MEDS: NICOTINE 14MG/24HR PATCH TRANSDERM SCH (08:09)
[2018-07-22] MEDS: ATORVASTATIN 10 MG TAB PO SCH (08:10)
[2018-07-22] MEDS: DIVALPROEX 500 MG TABLET.DR PO SCH (08:10)
[2018-07-22] MEDS: CHOLECALCIFEROL 1,000 UNIT TAB PO SCH (08:10)
[2018-07-22] MEDS: FAMOTIDINE 20 MG TAB PO SCH (08:11)
[2018-07-22] MEDS: DOXYCYCLINE 100 MG CAP PO SCH (08:11)
[2018-07-22] MEDS: LORATADINE 10 MG TAB PO SCH (08:11)
[2018-07-22] MEDS: HEPARIN SODIUM,PORCINE 5,000 UNIT/ML 1 ML VIAL SQ SCH (08:11)
[2018-07-22] MEDS: VANCOMYCIN 2,250 MG in SODIUM CHLORIDE 0.9% 500 ML 500 ML IVPB SCH (09:52)
[2018-07-22 12:36] LABS: Glucose,Whole Blood 258 mg/dL (75-99)
--- NOTE | 2018-07-22 18:22 | PN ---
PROGRESS NOTE DATE OF SERVICE: 07/22/2018 at 12 noon. INTERVAL HISTORY: The patient was seen on rounds around noon. The patient has been afebrile, has been breathing comfortably. Denies having any chest pain or any cough or abdominal pain or any pain to the leg area. PHYSICAL EXAMINATION: Blood pressure is 166/73 with a pulse of 77, temperature of 98. He is 94% on room air. General description is a middle-aged male lying in bed in no distress. RESPIRATORY SYSTEM: Unlabored breathing. Clear to auscultation anteriorly. HEART: S1, S2. Regular rate and rhythm. ABDOMEN: Soft. No tenderness. Legs are currently wrapped up. No obvious drainage on the dressing. LABS: BUN of 14, creatinine 0.85. Blood culture has been negative. DIAGNOSTIC IMPRESSION AND PLAN: Patient with right fifth toe wound with secondary cellulitis of both legs. Recommend local wound care with an Aquacel Silver dressing to the right fifth toe, Silvadene cream to the leg. Continue the patient on vancomycin, adjusting antibiotic further based on clinical response. Continue with supportive care. MMODL / IJN: [id number] /
[2018-07-22] MEDS ORDERED: VANCOMYCIN TROUGH DUE 1 EACH MISC MISCELLANE ONE (23:00)
== END 2018-07-22 13:07 | disposition home or self-care (01) | DRG 603 ==
LOC: EC 05:29 → 4SSUR 07:21
PROVIDERS: ADMIT Family Medicine; ATTEND Family Medicine
DX: L03.115 Cellulitis of right lower limb (principal); Z68.42 Body mass index [BMI] 45.0-49.9, adult; E87.1 Hypo-osmolality and hyponatremia; G93.49 Other encephalopathy; L03.116 Cellulitis of left lower limb; L97.519 Non-pressure chronic ulcer of other part of right foot with unspecified severity; D64.9 Anemia, unspecified; D69.6 Thrombocytopenia, unspecified; E11.621 Type 2 diabetes mellitus with foot ulcer; E11.65 Type 2 diabetes mellitus with hyperglycemia; E66.9 Obesity, unspecified; F17.200 Nicotine dependence, unspecified, uncomplicated; F20.9 Schizophrenia, unspecified; F41.9 Anxiety disorder, unspecified; F32.9 Major depressive disorder, single episode, unspecified; F90.9 Attention-deficit hyperactivity disorder, unspecified type; G40.909 Epilepsy, unspecified, not intractable, without status epilepticus; G47.33 Obstructive sleep apnea (adult) (pediatric); I10 Essential (primary) hypertension; J44.9 Chronic obstructive pulmonary disease, unspecified; K21.9 Gastro-esophageal reflux disease without esophagitis; K58.9 Irritable bowel syndrome, unspecified; M41.9 Scoliosis, unspecified; L40.9 Psoriasis, unspecified; Z79.4 Long term (current) use of insulin; Z82.49 Family history of ischemic heart disease and other diseases of the circulatory system; Z88.0 Allergy status to penicillin; Z72.820 Sleep deprivation; M19.90 Unspecified osteoarthritis, unspecified site; Z86.010 Personal history of colon polyps; Z87.19 Personal history of other diseases of the digestive system; Z88.8 Allergy status to other drugs, medicaments and biological substances
CPT/HCPCS: 36415; 71045; 78315; 80048; 80053; 80164; 83036; 85025; 86140; 87040; 96365; 96366; 96367; 96375; 99285

== ENCOUNTER 2018-07-25 09:39 | Emergency (ER) | payer MEDICARE, OTHER ==
[2018-07-25 09:45] VITALS: BP 204/100; PULSE 85; RESP 20; TEMP 97.9
--- NOTE | 2018-07-25 10:18 | ED ---
Skin/Abscess/FB HPI - General Chief complaint: Skin/Abscess/Foreign Body Stated complaint: bed bugs Time Seen by Provider: 07/25/18 09:55 Source: patient, RN notes reviewed, old records reviewed Mode of arrival: ambulatory - History of Present Illness Initial comments: This is a 47-year-old male the ER for evaluation. Presents today for evaluation regards to wounds, leg wounds, weeping leg wounds. Patient states he would recent hospital admission - Related Data Home Medications Medication Instructions Recorded Confirmed INSULIN LISPRO (HumaLOG) [humaLOG] See Protocol SQ AC-TID 08/16/15 07/25/18 Divalproex Sodium [Depakote] 500 mg PO TID 01/10/17 07/25/18 Omeprazole 20 mg PO BID 11/30/17 07/25/18 Insulin Glargine [Lantus] 30 unit SQ HS PRN 04/08/18 07/25/18 Atorvastatin [Lipitor] 10 mg PO DAILY 07/11/18 07/25/18 Cholecalciferol [Vitamin D3] 5,000 unit PO DAILY 07/11/18 07/25/18 Brexpiprazole [Rexulti] 2 mg PO HS 07/20/18 07/25/18 Doxycycline [Vibramycin] 100 mg PO BID 07/20/18 07/25/18 Loratadine [Claritin] 10 mg PO DAILY 07/20/18 07/25/18 Sennosides [Senna] 8.6 mg PO HS PRN 07/20/18 07/25/18 Vortioxetine Hydrobromide 20 mg PO HS 07/20/18 07/25/18 [Trintellix] clonazePAM [KlonoPIN] 1 mg PO HS 07/20/18 07/25/18 Allergies Allergy/AdvReac Type Severity Reaction Status Date / Time bisacodyl Allergy suppository Verified 07/25/18 10:41 [From Dulcolax (bisacodyl)] caused severe dizziness, states ok to take pills gabapentin Allergy seizures Verified 07/25/18 10:41 lactulose Allergy Rash/Hives Verified 07/25/18 10:41 Penicillins Allergy Unknown Verified 07/25/18 10:41 Childhood clozapine [From Clozaril] AdvReac Severe Aggression Verified 07/25/18 10:41 Review of Systems ROS Statement: Those systems with pertinent positive or pertinent negative responses have been documented in the HPI. ROS Other: All systems not noted in ROS Statement are negative. Past Medical History Past Medical History: Asthma, Diabetes Mellitus, GERD/Reflux, GI Bleed, Hypertension, Osteoarthritis (OA), Seizure Disorder, Skin Disorder, Sleep Apnea/ CPAP/BIPAP Additional Past Medical History / Comment(s): wound rt great toe,,LAST SEIZURE 28 YRS AGO. chronic back/neck pain. DOES NOT USE CPAP. SPINAL STENOSIS, DDD IN BACK, SCOLIOSIS, IBS, psoriasis, frequent urination, chronic diarrhea/ constipation issues, schizophrenia,depression, add/adhd., History of Any Multi-Drug Resistant Organisms: None Reported Past Surgical History: Cholecystectomy, Heart Catheterization, Tonsillectomy Additional Past Surgical History / Comment(s): PAIN PROCEDURES, colonscopy with polyp removal 12/03/17 with repair and transfusion , Past Anesthesia/Blood Transfusion Reactions: Motion Sickness Past Psychological History: ADD/ADHD, Schizophrenia, Depression, Schizophrenia Smoking Status: Current every day smoker Past Alcohol Use History: None Reported Past Drug Use History: None Reported - Past Family History Father History Unknown: Yes Family Medical History: Unable to Obtain Additional Family Medical History / Comment(s): pt has'nt seen his father since he was age 5 Mother History Unknown: Yes Family Medical History: No Reported History Additional Family Medical History / Comment(s): Mother at age 55yrs of [place]. General Exam General appearance: alert, in no apparent distress Head exam: Present: atraumatic, normocephalic, normal inspection Eye exam: Present: normal appearance, PERRL, EOMI. Absent: scleral icterus, conjunctival injection, periorbital swelling ENT exam: Present: normal exam, mucous membranes moist Neck exam: Present: normal inspection. Absent: tenderness, meningismus, lymphadenopathy Respiratory exam: Present: normal lung sounds bilaterally. Absent: respiratory distress, wheezes, rales, rhonchi, stridor Cardiovascular Exam: Present: regular rate, normal rhythm, normal heart sounds. Absent: systolic murmur, diastolic murmur, rubs, gallop, clicks GI/Abdominal exam: Present: soft, normal bowel sounds. Absent: distended, tenderness, guarding, rebound, rigid Extremities exam: Present: normal inspection, full ROM, normal capillary refill. Absent: tenderness, pedal edema, joint swelling, calf tenderness Back exam: Present: normal inspection Neurological exam: Present: alert, oriented X3, CN II-XII intact Psychiatric exam: Present: normal affect, normal mood Skin exam: Present: warm, dry, intact, normal color. Absent: rash Course Vital Signs 07/25/18 09:43 Temperature 97.9 F Pulse Rate 85 Respiratory 20 Rate Blood Pressure 204/100 O2 Sat by Pulse 98 Oximetry - Reevaluation(s) Reevaluation #1: 07/25/18 12:19 Patient given wound care instructions here in the ER Medical Decision Making - Medical Decision Making Plan I male the ER for eversion bilateral lower extremity wounds, chronic lower extremity edema, cellulitis, peripheral vascular disease, venous stasis, patient given wound care instructions and can be discharged home Disposition Clinical Impression: Cellulitis of both lower extremities Disposition: HOME SELF-CARE Instructions: Acute Wound Care (ED), Chronic Wound Care (ED) Is patient prescribed a controlled substance at d/c from ED?: No Referrals: [facility] [Primary Care Provider] - 1-2 days
== END 2018-07-25 13:08 | disposition home or self-care (01) ==
LOC: EC 09:39
DX: L03.115 Cellulitis of right lower limb (principal); L03.116 Cellulitis of left lower limb; I73.9 Peripheral vascular disease, unspecified; I10 Essential (primary) hypertension; E11.51 Type 2 diabetes mellitus with diabetic peripheral angiopathy without gangrene; K21.9 Gastro-esophageal reflux disease without esophagitis; G40.909 Epilepsy, unspecified, not intractable, without status epilepticus; G89.29 Other chronic pain; F20.9 Schizophrenia, unspecified; F32.9 Major depressive disorder, single episode, unspecified; F17.200 Nicotine dependence, unspecified, uncomplicated; Z88.0 Allergy status to penicillin; Z88.8 Allergy status to other drugs, medicaments and biological substances; Z91.048 Other nonmedicinal substance allergy status; Z79.4 Long term (current) use of insulin; Z79.899 Other long term (current) drug therapy
CPT/HCPCS: 99283

== ENCOUNTER 2018-07-26 02:47 | Emergency (ER) | payer MEDICARE, OTHER ==
[2018-07-26 02:59] VITALS: TEMP 98.3
[2018-07-26] MEDS ORDERED: LORazepam 1 MG TAB PO STA (03:18)
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
[2018-07-26 04:32] LABS: Appearance,Urine Clear (Clear); Bilirubin,Urine Negative (Negative); Blood,Urine Moderate (Negative); Color,Urine Yellow; Glucose,Urine (UA) Trace (Negative); Ketones,Urine Negative (Negative); Leukocyte Esterase,Urine Negative (Negative); Mucus,Urine Rare /hpf; Nitrite,Urine Negative (Negative); PH, Urine 5.5 (5.0-8.0); Protein,Urine 2+ (Negative); RBC,Urine 7 /hpf (0-5); Specific Gravity,Urine 1.016 (1.001-1.035); Squamous Epithelial Cell,Urine <1 /hpf (0-4); Urobilinogen,Urine <2.0 mg/dL (<2.0); WBC,Urine 3 /hpf (0-5)
[2018-07-26 04:38] LABS: Amphetamine Screen,Urine Not Detected (NotDetected); Barbiturate Screen,Urine Not Detected (NotDetected); Benzodiazepines Screen,Urine Not Detected (NotDetected); Cocaine Screen,Urine Not Detected (NotDetected); Methadone Screen, Urine Not Detected (NotDetected); Opiate Screen,Urine Not Detected (NotDetected); Oxycodone Screen, Urine Not Detected (NotDetected); Phencyclidine Screen,Urine Not Detected (NotDetected); Tricyclic Antidepressant,Urine Not Detected (NotDetected); Urn Cannabinoid Scrn Not Detected (NotDetected)
[2018-07-26 06:54] VITALS: BP 163/73; PULSE 78; RESP 19
[2018-07-26 06:59] LABS: Glucose,Whole Blood 189 mg/dL (75-99)
[2018-07-26] MEDS ORDERED: INSULIN ASPART 100 UNIT/ML 1 ML 10 ML VIAL SQ SCH (07:30)
[2018-07-26 08:00] LABS: Glucose,Whole Blood 195 mg/dL (75-99)
[2018-07-26] MEDS ORDERED: LORazepam 2 MG/ML INJ IM STA (09:09)
== END 2018-07-26 12:32 ==
LOC: EC 02:47
DX: F23 Brief psychotic disorder (principal); F32.9 Major depressive disorder, single episode, unspecified; G40.909 Epilepsy, unspecified, not intractable, without status epilepticus; E11.9 Type 2 diabetes mellitus without complications; K21.9 Gastro-esophageal reflux disease without esophagitis; I10 Essential (primary) hypertension; G47.30 Sleep apnea, unspecified; J45.909 Unspecified asthma, uncomplicated; F17.200 Nicotine dependence, unspecified, uncomplicated; Z79.4 Long term (current) use of insulin; Z79.899 Other long term (current) drug therapy; Z88.0 Allergy status to penicillin; Z88.8 Allergy status to other drugs, medicaments and biological substances; Z95.5 Presence of coronary angioplasty implant and graft; Z90.49 Acquired absence of other specified parts of digestive tract
CPT/HCPCS: 82075; 36415; 81001; 80306; 99285; 96372; J2060; 99284

== ENCOUNTER 2018-08-11 23:03 | Emergency (ER) | payer MEDICARE, OTHER ==
[2018-08-11 23:14] VITALS: RESP 18
--- NOTE | 2018-08-12 00:10 | ED ---
General Adult HPI - General Chief complaint: Upper Respiratory Infection Stated complaint: cough Time Seen by Provider: 08/11/18 23:17 Source: patient, EMS, RN notes reviewed, old records reviewed Mode of arrival: EMS Limitations: no limitations - History of Present Illness Initial comments: Chief complaint and history of present illness this is a 47-year-old male here for complaint of productive cough. - Related Data Home Medications Medication Instructions Recorded Confirmed INSULIN LISPRO (HumaLOG) [humaLOG] See Protocol SQ AC-TID 08/16/15 08/11/18 Divalproex Sodium [Depakote] 500 mg PO TID 01/10/17 08/11/18 Omeprazole 20 mg PO BID 11/30/17 08/11/18 Insulin Glargine [Lantus] 30 unit SQ HS PRN 04/08/18 08/11/18 Atorvastatin [Lipitor] 10 mg PO DAILY 07/11/18 08/11/18 Cholecalciferol [Vitamin D3] 5,000 unit PO DAILY 07/11/18 08/11/18 Brexpiprazole [Rexulti] 2 mg PO HS 07/20/18 08/11/18 Loratadine [Claritin] 10 mg PO DAILY 07/20/18 08/11/18 Sennosides [Senna] 8.6 mg PO HS PRN 07/20/18 08/11/18 Vortioxetine Hydrobromide 20 mg PO HS 07/20/18 08/11/18 [Trintellix] clonazePAM [KlonoPIN] 1 mg PO HS 07/20/18 08/11/18 Lisinopril 20 mg PO DAILY 08/11/18 08/11/18 Previous Rx's Medication Instructions Recorded Sulfamethox-Tmp 800-160Mg [Bactrim 1 each PO Q12HR #20 tab 08/12/18 DS 800-160 mg] Allergies Allergy/AdvReac Type Severity Reaction Status Date / Time bisacodyl Allergy suppository Verified 08/11/18 23:20 [From Dulcolax (bisacodyl)] caused severe dizziness, states ok to take pills gabapentin Allergy seizures Verified 08/11/18 23:20 lactulose Allergy Rash/Hives Verified 08/11/18 23:20 Penicillins Allergy Unknown Verified 08/11/18 23:20 Childhood clozapine [From Clozaril] AdvReac Severe Aggression Verified 08/11/18 23:20 Review of Systems ROS Statement: Those systems with pertinent positive or pertinent negative responses have been documented in the HPI. Review of systems no complaint of headache no visual acuity changes no chest pain but does have persistent cough. They can stop when he uses his inhaler. Denies nausea vomiting diarrhea. Patient has had some history of mental illness and frequent he complains of having parasites on him. He wanted to take a shower is allowed to do so. No other complaints. Past medical problems significant for asthma, diabetes, GERD, previous GI bleed. Also history of hypertension, osteoarthritis seizure disorder skin disorder, chronic wounds was great toe. Surgeries include cholecystectomy, heart catheterization tonsillectomy. Family history noncontributory. Patient does smoke strongly encouraged to stop. ALLERGIES as listed ROS Other: All systems not noted in ROS Statement are negative. Past Medical History Past Medical History: Asthma, Diabetes Mellitus, GERD/Reflux, GI Bleed, Hypertension, Osteoarthritis (OA), Seizure Disorder, Skin Disorder, Sleep Apnea/ CPAP/BIPAP Additional Past Medical History / Comment(s): wound rt great toe,,LAST SEIZURE 28 YRS AGO. chronic back/neck pain. DOES NOT USE CPAP. SPINAL STENOSIS, DDD IN BACK, SCOLIOSIS, IBS, psoriasis, frequent urination, chronic diarrhea/ constipation issues, schizophrenia,depression, add/adhd., History of Any Multi-Drug Resistant Organisms: None Reported Past Surgical History: Cholecystectomy, Heart Catheterization, Tonsillectomy Additional Past Surgical History / Comment(s): PAIN PROCEDURES, colonscopy with polyp removal 12/03/17 with repair and transfusion , Past Anesthesia/Blood Transfusion Reactions: Motion Sickness Past Psychological History: ADD/ADHD, Schizophrenia, Depression, Schizophrenia Smoking Status: Current every day smoker Past Alcohol Use History: None Reported Past Drug Use History: None Reported - Past Family History Father History Unknown: Yes Family Medical History: Unable to Obtain Additional Family Medical History / Comment(s): pt has'nt seen his father since he was age 5 Mother History Unknown: Yes Family Medical History: No Reported History Additional Family Medical History / Comment(s): Mother at age 55yrs of [place]. General Exam - General Exam Comments Initial Comments: General: The patient is awake and alert, frequent coughing. Clear to yellow in color. Vital signs temp 98.0 pulse 104 respiratory rate 18 pulse ox 97% room air blood pressure 156/78. Eye: Pupils are equal, round and reactive to light, extra-ocular movements are intact ; there is normal conjunctiva bilaterally. No signs of icterus. Ears, nose, mouth and throat: There are moist mucous membranes. Neck: The neck is supple,. Cardiovascular: Mildly increased heart rate with coughing.. No murmur, rub or gallop is appreciated. Respiratory: Frequent coughing. No complaint chest pain. Coughing makes it feel short of breath. Respiratory rate 18 pulse ox 97% room air Gastrointestinal: Soft, non-distended, non-tender abdomen without masses or organomegaly noted. There is no rebound or guarding present. No CVA tenderness. Bowel sounds are unremarkable. Back: No acute back pain at this time. History of chronic back pain Musculoskeletal: Chronic lower extremity swelling. No open wounds. The patient goes to the wound clinic. Neurological: Neuro intact Skin: Skin is warm and dry and no rashes or lesions are noted. Psychiatric: Cooperative, history of schizophrenia. Limitations: no limitations Course Vital Signs 08/11/18 08/11/18 23:08 23:36 Temperature 98.0 F Pulse Rate 104 H Respiratory 18 18 Rate Blood Pressure 156/78 O2 Sat by Pulse 97 Oximetry Medical Decision Making - Medical Decision Making Chest x-ray was done and reviewed by radiologist his impression is no active cardiopulmonary disease. Normal heart. No changes. As read by Dr. Arnold Patient was advised to stop smoking. Advised to his family physician about medications that may help him stop smoking. The patient be placed on Bactrim DS one tablet twice a day for 10 days for upper respiratory tract infection. Disposition Clinical Impression: Bronchitis Disposition: HOME SELF-CARE Condition: Fair Instructions: Acute Bronchitis (ED) Additional Instructions: Continue using her inhaler as needed. Stop smoking. Increase fluids. Take Bactrim one tablet twice a day as directed. Follow-up with family physician Prescriptions: Sulfamethox-Tmp 800-160Mg [Bactrim DS 800-160 mg] 1 each PO Q12HR #20 tab Is patient prescribed a controlled substance at d/c from ED?: No Referrals: [facility] [Primary Care Provider] - 1-2 days Time of Disposition: 00:32
--- NOTE | 2018-08-12 00:19 | XR ---
EXAMINATION TYPE: XR chest 2V DATE OF EXAM: 08/12/2018 COMPARISON: 07/21/2018 HISTORY: Cough TECHNIQUE: Frontal and lateral views of the chest are obtained. FINDINGS: Heart and mediastinum are normal. Lungs are clear. Diaphragm is normal. Bony thorax is int act. IMPRESSION: No active cardiopulmonary disease. Normal heart. No change.
[2018-08-12] MEDS ORDERED: SULFAMETH-TMP DS STARTER PACK 2 TAB BTL PO STA (00:30)
[2018-08-12 01:04] VITALS: BP 155/80; PULSE 88; TEMP 97.9
== END 2018-08-12 01:06 | disposition home or self-care (01) ==
LOC: EC 23:03
DX: J40 Bronchitis, not specified as acute or chronic (principal); E11.9 Type 2 diabetes mellitus without complications; K21.9 Gastro-esophageal reflux disease without esophagitis; I10 Essential (primary) hypertension; G40.909 Epilepsy, unspecified, not intractable, without status epilepticus; F20.9 Schizophrenia, unspecified; F32.9 Major depressive disorder, single episode, unspecified; F17.200 Nicotine dependence, unspecified, uncomplicated; Z90.49 Acquired absence of other specified parts of digestive tract; Z98.890 Other specified postprocedural states; Z79.4 Long term (current) use of insulin; Z79.899 Other long term (current) drug therapy; Z88.0 Allergy status to penicillin; Z88.8 Allergy status to other drugs, medicaments and biological substances
CPT/HCPCS: 71046; 99284

== ENCOUNTER 2018-08-20 21:58 | Emergency (ER) | payer MEDICARE, OTHER ==
[2018-08-20 22:17] VITALS: BP 154/81; RESP 22; TEMP 98.8
--- NOTE | 2018-08-20 22:55 | ED ---
URI HPI - General Chief Complaint: Upper Respiratory Infection Stated Complaint: coughing up HANDY ballard Time Seen by Provider: 08/20/18 22:50 Source: patient Mode of arrival: ambulatory Limitations: no limitations - History of Present Illness Initial Comments: Jude is a 47-year-old gentleman well known to our emergency department for his frequent visits. He presents today with a complaint of persistent cough for 2 weeks duration. She reports he was seen and evaluated earlier in the month, he was described Bactrim which he reports he has been compliant with, spite this the patient reports she has persistent productive cough. Patient reports he is able to cough up a little games but it intermediate across the street. Patient states he came back to have his cough reassessed. He denies any chest pain or shortness of breath. He continues to smoke cigarettes. She also states that he is out of his Klonopin and needs some so that he doesn' t become violent. - Related Data Home Medications Medication Instructions Recorded Confirmed INSULIN LISPRO (HumaLOG) [humaLOG] See Protocol SQ AC-TID 08/16/15 08/20/18 Divalproex Sodium [Depakote] 500 mg PO TID 01/10/17 08/20/18 Omeprazole 20 mg PO BID 11/30/17 08/20/18 Insulin Glargine [Lantus] 30 unit SQ HS PRN 04/08/18 08/20/18 Atorvastatin [Lipitor] 10 mg PO DAILY 07/11/18 08/20/18 Cholecalciferol [Vitamin D3] 5,000 unit PO DAILY 07/11/18 08/20/18 Brexpiprazole [Rexulti] 2 mg PO HS 07/20/18 08/20/18 Loratadine [Claritin] 10 mg PO DAILY 07/20/18 08/20/18 Sennosides [Senna] 8.6 mg PO HS PRN 07/20/18 08/20/18 Vortioxetine Hydrobromide 20 mg PO HS 07/20/18 08/20/18 [Trintellix] clonazePAM [KlonoPIN] 1 mg PO HS 07/20/18 08/20/18 Lisinopril 20 mg PO DAILY 08/11/18 08/20/18 Sulfamethox-Tmp 800-160Mg [Bactrim 1 tab PO Q12HR 08/20/18 08/20/18 DS 800-160 mg] Allergies Allergy/AdvReac Type Severity Reaction Status Date / Time bisacodyl Allergy suppository Verified 08/20/18 22:52 [From Dulcolax (bisacodyl)] caused severe dizziness, states ok to take pills gabapentin Allergy seizures Verified 08/20/18 22:52 lactulose Allergy Rash/Hives Verified 08/20/18 22:52 Penicillins Allergy Unknown Verified 08/20/18 22:52 Childhood clozapine [From Clozaril] AdvReac Severe Aggression Verified 08/20/18 22:52 Review of Systems ROS Statement: Those systems with pertinent positive or pertinent negative responses have been documented in the HPI. ROS Other: All systems not noted in ROS Statement are negative. Past Medical History Past Medical History: Asthma, Diabetes Mellitus, GERD/Reflux, GI Bleed, Hypertension, Osteoarthritis (OA), Seizure Disorder, Skin Disorder, Sleep Apnea/ CPAP/BIPAP Additional Past Medical History / Comment(s): wound rt great toe,,LAST SEIZURE 28 YRS AGO. chronic back/neck pain. DOES NOT USE CPAP. SPINAL STENOSIS, DDD IN BACK, SCOLIOSIS, IBS, psoriasis, frequent urination, chronic diarrhea/ constipation issues, schizophrenia,depression, add/adhd., History of Any Multi-Drug Resistant Organisms: None Reported Past Surgical History: Cholecystectomy, Heart Catheterization, Tonsillectomy Additional Past Surgical History / Comment(s): PAIN PROCEDURES, colonscopy with polyp removal 12/03/17 with repair and transfusion , Past Anesthesia/Blood Transfusion Reactions: Motion Sickness Past Psychological History: ADD/ADHD, Schizophrenia, Depression, Schizophrenia Smoking Status: Current every day smoker Past Alcohol Use History: None Reported Past Drug Use History: None Reported - Past Family History Father History Unknown: Yes Family Medical History: Unable to Obtain Additional Family Medical History / Comment(s): pt has'nt seen his father since he was age 5 Mother History Unknown: Yes Family Medical History: No Reported History Additional Family Medical History / Comment(s): Mother at age 55yrs of [place]. General Exam - General Exam Comments Initial Comments: Physical Exam GENERAL: Patient is nontoxic and well-hydrated and is in no distress. Unkempt, poor personal hygiene HENT: Normocephalic, Atraumatic. EYES: PERRL, EOMI PULMONARY: Mild expiratory wheeze CARDIOVASCULAR: Tachycardic, regular ABDOMEN: Obese, Soft and nontender with normal bowel sounds. SKIN: Skin is clear with no lesions or rashes and otherwise unremarkable. : Deferred NEUROLOGIC: Patient is alert and oriented x3. Moving all extremities spontaneously MUSCULOSKELETAL: Normal extremities with adequate strength and full range of motion. No lower extremity swelling or edema. No calf tenderness. PSYCHIATRIC: Childlike demeanor, easily agitated Limitations: no limitations Limitations: no limitations Course Vital Signs 08/20/18 08/21/18 08/21/18 22:13 00:46 00:55 Temperature 98.8 F Pulse Rate 99 96 92 Respiratory 22 Rate Blood Pressure 154/81 O2 Sat by Pulse 97 Oximetry Medical Decision Making - Medical Decision Making Patient was seen and evaluated, history was obtained from the patient, review of medical record Patient has chronic bronchitis likely secondary to tobacco abuse. Presenting today with persistent minimally productive cough, no fever no shortness of breath Physical exam was unremarkable, patient has not febrile, tachycardia resolved after arrival Chest x-ray was ordered Patient was ambulating around the emergency department, states that his girlfriend is a patient he wanted to find her. Advised patient to remain in his room. Patient was cooperative. Patient was updated on negative chest x-ray. Patient expresses relief requests a breathing treatment prior to discharge home. Advised patient he needs follow- up with his primary care physician for a fill this prescription for Klonopin. Patient agreeable. - EKG Data -: EKG Interpreted by Me EKG Comments: EKG was obtained at 10:53 PM, rate is 94, rhythm is sinus, normal axis normal intervals no acute ST elevations or depressions no evidence of acute ischemia or infarction. Disposition Clinical Impression: Bronchitis, Tobacco abuse Disposition: HOME SELF-CARE Condition: Undetermined Instructions: How to Stop Smoking (ED), Upper Respiratory Infection (ED) Is patient prescribed a controlled substance at d/c from ED?: No Referrals: [facility] [Primary Care Provider] - 1-2 days
[2018-08-20] MEDS ORDERED: clonazePAM 1 MG TAB PO SCH (23:15)
--- NOTE | 2018-08-20 23:45 | XR ---
EXAMINATION TYPE: XR chest 2V DATE OF EXAM: 08/20/2018 COMPARISON: 08/12/2018 HISTORY: Cough TECHNIQUE: Frontal and lateral views of the chest are obtained. FINDINGS: Heart and mediastinum are normal. Lungs are clear. Diaphragm is normal. Bony thorax appear s normal. There are chest leads. IMPRESSION: Normal chest. No change.
[2018-08-21] MEDS ORDERED: IPRATROPIUM-ALBUTEROL 3 ML NEB INHALATION STA ×2 (00:30→00:33)
[2018-08-21 00:56] VITALS: PULSE 92
== END 2018-08-21 00:56 | disposition home or self-care (01) ==
LOC: EC 21:58
DX: J45.909 Unspecified asthma, uncomplicated (principal); Z71.6 Tobacco abuse counseling; E11.9 Type 2 diabetes mellitus without complications; K21.9 Gastro-esophageal reflux disease without esophagitis; I10 Essential (primary) hypertension; G40.909 Epilepsy, unspecified, not intractable, without status epilepticus; M19.90 Unspecified osteoarthritis, unspecified site; K58.9 Irritable bowel syndrome, unspecified; F20.9 Schizophrenia, unspecified; F90.9 Attention-deficit hyperactivity disorder, unspecified type; F32.9 Major depressive disorder, single episode, unspecified; F17.200 Nicotine dependence, unspecified, uncomplicated; Z79.4 Long term (current) use of insulin; Z79.899 Other long term (current) drug therapy; Z88.0 Allergy status to penicillin; Z88.8 Allergy status to other drugs, medicaments and biological substances; Z95.818 Presence of other cardiac implants and grafts
CPT/HCPCS: 71046; 94640; 99285

== ENCOUNTER 2018-08-22 17:20 | Emergency (ER) | payer MEDICARE, OTHER ==
[2018-08-22 17:43] VITALS: BP 148/78; PULSE 107; RESP 20; TEMP 98.4
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
[2018-08-22] MEDS ORDERED: clonazePAM 0.5 MG TAB PO STA (18:35)
== END 2018-08-22 19:32 | disposition home or self-care (01) ==
LOC: EC 17:20
DX: Z76.0 Encounter for issue of repeat prescription (principal); E11.9 Type 2 diabetes mellitus without complications; K21.9 Gastro-esophageal reflux disease without esophagitis; G40.909 Epilepsy, unspecified, not intractable, without status epilepticus; F20.9 Schizophrenia, unspecified; F32.9 Major depressive disorder, single episode, unspecified; I10 Essential (primary) hypertension; F17.200 Nicotine dependence, unspecified, uncomplicated; Z88.0 Allergy status to penicillin; Z88.8 Allergy status to other drugs, medicaments and biological substances; Z91.018 Allergy to other foods; Z79.4 Long term (current) use of insulin; Z79.899 Other long term (current) drug therapy
CPT/HCPCS: 99281

== ENCOUNTER 2018-08-27 07:58 | Emergency (ER) | payer MEDICARE, OTHER ==
[2018-08-27] MEDS ORDERED: IPRATROPIUM-ALBUTEROL 3 ML NEB INHALATION STA (08:03)
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
[2018-08-27 08:15] VITALS: RESP 17
--- NOTE | 2018-08-27 09:26 | XR ---
EXAMINATION TYPE: XR chest 2V DATE OF EXAM: 08/27/2018 COMPARISON: Prior chest 08/20/2018 HISTORY: Difficulty breathing TECHNIQUE: Frontal and lateral views of the chest are obtained. FINDINGS: There is no focal air space opacity, pleural effusion, or pneumothorax seen. The cardiac silhouette size is within normal limits. The osseous structures are intact. IMPRESSION: No acute cardiopulmonary process.
[2018-08-27] MEDS ORDERED: MORPHINE SULFATE 4 MG/ML SYRINGE IVP STA (09:37)
[2018-08-27 09:52] VITALS: BP 163/99; PULSE 88; TEMP 97.6
== END 2018-08-27 09:58 | disposition home or self-care (01) ==
LOC: EC 07:58
DX: J45.901 Unspecified asthma with (acute) exacerbation (principal); E11.9 Type 2 diabetes mellitus without complications; K21.9 Gastro-esophageal reflux disease without esophagitis; I10 Essential (primary) hypertension; G40.909 Epilepsy, unspecified, not intractable, without status epilepticus; G47.30 Sleep apnea, unspecified; F32.9 Major depressive disorder, single episode, unspecified; F20.9 Schizophrenia, unspecified; F17.200 Nicotine dependence, unspecified, uncomplicated; Z79.4 Long term (current) use of insulin; Z79.899 Other long term (current) drug therapy; Z88.0 Allergy status to penicillin; Z88.8 Allergy status to other drugs, medicaments and biological substances; Z95.5 Presence of coronary angioplasty implant and graft
CPT/HCPCS: 71046; 94640; 99285

== ENCOUNTER 2018-09-06 21:52 | Inpatient (IN) | payer MEDICARE, OTHER ==
[2018-09-06] MEDS ORDERED: ACETAMINOPHEN TAB 500 MG TAB PO STA (22:13)
[2018-09-06] MEDS: SODIUM CHLORIDE 0.9% 500 ML 500 ML IV SCH ×2 (22:29→23:00)
[2018-09-06 22:46] LABS: Basophils % (A) 1 %; Eosinophils # (A) 0.1 k/uL (0-0.7); Eosinophils % (A) 1 %; HCT 25.5 % (39.0-53.0); Lymphocytes # (A) 0.4 k/uL (1.0-4.8); Lymphocytes % (A) 8 %; MCH 27.8 pg (25.0-35.0); MCHC 33.3 g/dL (31.0-37.0); MCV 83.5 fL (80.0-100.0); Mean Platelet Volume 7.3; Monocytes # (A) 0.3 k/uL (0-1.0); Monocytes % (A) 6 %; Neutrophils # (A) 4.3 k/uL (1.3-7.7); Neutrophils % (A) 83 %; Platelet Count 117 k/uL (150-450); RBC 3.06 m/uL (4.30-5.90); RDW 14.8 % (11.5-15.5); WBC 5.1 k/uL (3.8-10.6)
[2018-09-06 22:48] LABS: Glucose,Whole Blood 443 mg/dL (75-99)
[2018-09-06 22:48] LABS: Albumin 2.5 g/dL (3.5-5.0); Calcium 8.2 mg/dL (8.4-10.2); Potassium 4.8 mmol/L (3.5-5.1); Total Bilirubin 0.8 mg/dL (0.2-1.3); Total Protein 5.2 g/dL (6.3-8.2)
[2018-09-06 22:49] LABS: Partial Thromboplastin Time 27.6 sec (22.0-30.0); Prothrombin Time 10.8 sec (9.0-12.0)
[2018-09-06 22:51] LABS: HGB 8.5 gm/dL (13.0-17.5)
--- NOTE | 2018-09-06 23:19 | ED ---
General Adult HPI - General Chief complaint: Shortness of Breath Stated complaint: HANDY Time Seen by Provider: 09/06/18 21:56 Source: patient, EMS Mode of arrival: EMS Limitations: no limitations - History of Present Illness Initial comments: Patient is a 47-year-old male presenting for shortness of breath and fever. Patient states that for the last 2 months, his been having shortness of breath and it is been worsening in the sense that he is having worsening cough and fevers or chills especially today. He admits to some substernal chest pain and one episode of nausea and vomiting. He denies any abdominal pain or diarrhea. - Related Data Home Medications Medication Instructions Recorded Confirmed Omeprazole 20 mg PO BID 11/30/17 09/06/18 Insulin Glargine [Lantus] 30 unit SQ HS 04/08/18 09/06/18 Atorvastatin [Lipitor] 10 mg PO DAILY 07/11/18 09/06/18 Sennosides [Senna] 8.6 mg PO HS PRN 07/20/18 09/06/18 Sertraline [Zoloft] 50 mg PO BID 08/27/18 09/06/18 amLODIPine [Norvasc] 5 mg PO DAILY 08/27/18 09/06/18 clonazePAM [KlonoPIN] 0.5 mg PO TID 08/27/18 09/06/18 risperiDONE [RisperDAL] 3 mg PO BID 08/27/18 09/06/18 Albuterol Inhaler [Ventolin Hfa 2 puff INHALATION RT-Q4H PRN 09/06/18 09/06/18 Inhaler] Cholecalciferol [Vitamin D3] 5,000 unit PO DAILY 09/06/18 09/06/18 Divalproex Sodium [Depakote] 500 mg PO BID 09/06/18 09/06/18 Docusate [Colace] 100 mg PO DAILY PRN 09/06/18 09/06/18 Doxycycline [Vibramycin] 100 mg PO BID 09/06/18 09/06/18 Furosemide [Lasix] 20 mg PO BID 09/06/18 09/06/18 INSULIN LISPRO (humaLOG) [humaLOG] See Protocol SQ AC-TID 09/06/18 09/06/18 Lisinopril [Zestril] 20 mg PO DAILY 09/06/18 09/06/18 Loratadine [Claritin] 10 mg PO DAILY 09/06/18 09/06/18 Paliperidone IM [Invega Sustenna] 156 mg IM ONCE 09/06/18 09/06/18 Potassium Chloride 10meq Capsule 10 meq PO BID 09/06/18 09/06/18 Allergies Allergy/AdvReac Type Severity Reaction Status Date / Time bisacodyl Allergy suppository Verified 09/06/18 22:00 [From Dulcolax (bisacodyl)] caused severe dizziness, states ok to take pills gabapentin Allergy seizures Verified 09/06/18 22:00 lactulose Allergy Rash/Hives Verified 09/06/18 22:00 Penicillins Allergy Unknown Verified 09/06/18 22:00 Childhood clozapine [From Clozaril] AdvReac Severe Aggression Verified 09/06/18 22:00 Review of Systems ROS Statement: Those systems with pertinent positive or pertinent negative responses have been documented in the HPI. Constitutional: Positive for chills, fatigue and fever. HENT: Negative for congestion. Respiratory: Negative for chest tightness, and wheezing. Positive for cough and shortness of breath Cardiovascular: Negative for chest pain and palpitations. Gastrointestinal: Negative for abdominal pain. Negative for abdominal distention , diarrhea, positive for nausea and vomiting. Genitourinary: Negative for dysuria. Musculoskeletal: Negative for back pain, neck pain and neck stiffness. Skin: Negative for color change. Neurological: Negative for dizziness, speech difficulty, weakness and light- headedness. Psychiatric/Behavioral: Negative for agitation and confusion. Negative for anxiety ROS Other: All systems not noted in ROS Statement are negative. Past Medical History Past Medical History: Asthma, Diabetes Mellitus, GERD/Reflux, GI Bleed, Hypertension, Osteoarthritis (OA), Seizure Disorder, Skin Disorder, Sleep Apnea/ CPAP/BIPAP Additional Past Medical History / Comment(s): wound rt great toe,,LAST SEIZURE 28 YRS AGO. chronic back/neck pain. DOES NOT USE CPAP. SPINAL STENOSIS, DDD IN BACK, SCOLIOSIS, IBS, psoriasis, frequent urination, chronic diarrhea/ constipation issues, schizophrenia,depression, add/adhd., History of Any Multi-Drug Resistant Organisms: None Reported Past Surgical History: Cholecystectomy, Heart Catheterization, Tonsillectomy Additional Past Surgical History / Comment(s): PAIN PROCEDURES, colonscopy with polyp removal 12/03/17 with repair and transfusion , Past Anesthesia/Blood Transfusion Reactions: Motion Sickness Past Psychological History: ADD/ADHD, Schizophrenia, Depression, Schizophrenia Smoking Status: Current every day smoker Past Alcohol Use History: None Reported Past Drug Use History: Marijuana - Past Family History Father History Unknown: Yes Family Medical History: Unable to Obtain Additional Family Medical History / Comment(s): pt has'nt seen his father since he was age 5 Mother History Unknown: Yes Family Medical History: No Reported History Additional Family Medical History / Comment(s): Mother at age 55yrs of [place]. General Exam - General Exam Comments Initial Comments: Constitutional: Pt is oriented to person, place, and time. Pt appears well- developed and well-nourished. No distress. HENT: Head: Normocephalic and atraumatic. Eyes: EOM are normal. Neck: Normal range of motion. Neck supple. Cardiovascular: Tachycardic, regular rhythm, S1 normal, S2 normal and normal heart sounds. Exam reveals no gallop and no friction rub. No murmur heard. Pulmonary/Chest: Effort normal and breath sounds normal. No tachypnea and no bradypnea. No respiratory distress. No wheezes or rales noted. Abdominal: Soft. Bowel sounds are normal. Pt exhibits no shifting dullness, no distension, no pulsatile liver, no fluid wave, no abdominal bruit and no ascites. There is no tenderness. There is no rigidity, no rebound, no guarding, no tenderness at McBurney's point and negative Champion's sign. Musculoskeletal: Normal range of motion. Neurological: Pt is alert and oriented to person, place, and time. No cranial nerve deficit. Skin: Pt is not diaphoretic. No erythema. No pallor. Fungating mass on her toes of right foot. No evidence of infection. Psychiatric: Pt has a normal mood and affect. Pt behavior is normal. Thought content normal. Limitations: no limitations Course Vital Signs 09/06/18 09/07/18 21:54 00:12 Temperature 103 F H 101.7 F H Pulse Rate 117 H 107 H Respiratory 16 18 Rate Blood Pressure 182/87 165/82 O2 Sat by Pulse 99 98 Oximetry EKG Findings - EKG Comments: EKG Findings:: EKG shows sinus tachycardia with a rate of 103, CO interval 184, QRS 94, QTC 463. There are no significant ST depressions or elevations. Medical Decision Making - Medical Decision Making Laboratory studies showed that there was a drop of hemoglobin to 8.5 but etiology is unclear and patient was not agreeable to having rectal exam performed. There is significant concern about underlying infection which is not been able to be determined here in the emergency department as chest x-ray is negative as well as influenza and urinalysis. However, lactic acid is elevated at 2.1 and septic order set was initiated with blood cultures obtained. It is unclear the patient's fever secondary to chronic foot wound and therefore patient was covered with vancomycin for this as well as to cover for HCAP As the patient lives in a half-way. Because patient will be covered for HCAP, cefepime was also initiated.Explained all labs and diagnostic test results and that we will admit patient to hospital. Pt is agreeable to plan and case will be discussed with [facility] group. - Lab Data Result diagrams: 09/06/18 22:19 09/06/18 22:19 Lab Results 09/06/18 09/06/18 09/06/18 Range/Units 22:19 22:19 22:19 WBC 5.1 (3.8-10.6) k/uL RBC 3.06 L (4.30-5.90) m/uL Hgb 8.5 L D (13.0-17.5) gm/dL Hct 25.5 L (39.0-53.0) % MCV 83.5 (80.0-100.0) fL MCH 27.8 (25.0-35.0) pg MCHC 33.3 (31.0-37.0) g/dL RDW 14.8 (11.5-15.5) % Plt Count 117 L (150-450) k/uL Neutrophils % 83 % Lymphocytes % 8 % Monocytes % 6 % Eosinophils % 1 % Basophils % 1 % Neutrophils # 4.3 (1.3-7.7) k/uL Lymphocytes # 0.4 L (1.0-4.8) k/uL Monocytes # 0.3 (0-1.0) k/uL Eosinophils # 0.1 (0-0.7) k/uL Basophils # 0.0 (0-0.2) k/uL PT (9.0-12.0) sec INR (<1.2) APTT (22.0-30.0) sec Sodium 127 L (137-145) mmol/L Potassium 4.8 (3.5-5.1) mmol/L Chloride 98 (98-107) mmol/L Carbon Dioxide 24 (22-30) mmol/L Anion Gap 5 mmol/L BUN 18 (9-20) mg/dL Creatinine 1.14 (0.66-1.25) mg/dL Est GFR (CKD-EPI)AfAm 87 (>60 ml/min/1.73 sqM) Est GFR (CKD-EPI)NonAf 76 (>60 ml/min/1.73 sqM) Glucose 436 H (74-99) mg/dL POC Glucose (mg/dL) (75-99) mg/dL POC Glu Freezer Machine Operator ID Plasma Lactic Acid Chris 2.1 H* (0.7-2.0) mmol/L Calcium 8.2 L (8.4-10.2) mg/dL Total Bilirubin 0.8 (0.2-1.3) mg/dL AST 23 (17-59) U/L ALT 33 (21-72) U/L Alkaline Phosphatase 62 (38-126) U/L Troponin I (0.000-0.034) ng/mL Total Protein 5.2 L (6.3-8.2) g/dL Albumin 2.5 L (3.5-5.0) g/dL Urine Color Urine Appearance (Clear) Urine pH (5.0-8.0) Ur Specific Rex (1.001-1.035) Urine Protein (Negative) Urine Glucose (UA) (Negative) Urine Ketones (Negative) Urine Blood (Negative) Urine Nitrite (Negative) Urine Bilirubin (Negative) Urine Urobilinogen (<2.0) mg/dL Ur Leukocyte Esterase (Negative) Urine RBC (0-5) /hpf Urine WBC (0-5) /hpf Influenza Type A RNA (Not Detectd) Influenza Type B (PCR) (Not Detectd) 09/06/18 09/06/18 09/06/18 Range/Units 22:19 22: 22:44 WBC (3.8-10.6) k/uL RBC (4.30-5.90) m/uL Hgb (13.0-17.5) gm/dL Hct (39.0-53.0) % MCV (80.0-100.0) fL MCH (25.0-35.0) pg MCHC (31.0-37.0) g/dL RDW (11.5-15.5) % Plt Count (150-450) k/uL Neutrophils % % Lymphocytes % % Monocytes % % Eosinophils % % Basophils % % Neutrophils # (1.3-7.7) k/uL Lymphocytes # (1.0-4.8) k/uL Monocytes # (0-1.0) k/uL Eosinophils # (0-0.7) k/uL Basophils # (0-0.2) k/uL PT 10.8 (9.0-12.0) sec INR 1.0 (<1.2) APTT 27.6 (22.0-30.0) sec Sodium (137-145) mmol/L Potassium (3.5-5.1) mmol/L Chloride (98-107) mmol/L Carbon Dioxide (22-30) mmol/L Anion Gap mmol/L BUN (9-20) mg/dL Creatinine (0.66-1.25) mg/dL Est GFR (CKD-EPI)AfAm (>60 ml/min/1.73 sqM) Est GFR (CKD-EPI)NonAf (>60 ml/min/1.73 sqM) Glucose (74-99) mg/dL POC Glucose (mg/dL) 443 H (75-99) mg/dL POC Glu Freezer Machine Operator ID Trisha Jackson Plasma Lactic Acid Chris (0.7-2.0) mmol/L Calcium (8.4-10.2) mg/dL Total Bilirubin (0.2-1.3) mg/dL AST (17-59) U/L ALT (21-72) U/L Alkaline Phosphatase (38-126) U/L Troponin I <0.012 (0.000-0.034) ng/mL Total Protein (6.3-8.2) g/dL Albumin (3.5-5.0) g/dL Urine Color Urine Appearance (Clear) Urine pH (5.0-8.0) Ur Specific Rex (1.001-1.035) Urine Protein (Negative) Urine Glucose (UA) (Negative) Urine Ketones (Negative) Urine Blood (Negative) Urine Nitrite (Negative) Urine Bilirubin (Negative) Urine Urobilinogen (<2.0) mg/dL Ur Leukocyte Esterase (Negative) Urine RBC (0-5) /hpf Urine WBC (0-5) /hpf Influenza Type A RNA (Not Detectd) Influenza Type B (PCR) (Not Detectd) 09/06/18 09/06/18 Range/Units 23:40 23:40 WBC (3.8-10.6) k/uL RBC (4.30-5.90) m/uL Hgb (13.0-17.5) gm/dL Hct (39.0-53.0) % MCV (80.0-100.0) fL MCH (25.0-35.0) pg MCHC (31.0-37.0) g/dL RDW (11.5-15.5) % Plt Count (150-450) k/uL Neutrophils % % Lymphocytes % % Monocytes % % Eosinophils % % Basophils % % Neutrophils # (1.3-7.7) k/uL Lymphocytes # (1.0-4.8) k/uL Monocytes # (0-1.0) k/uL Eosinophils # (0-0.7) k/uL Basophils # (0-0.2) k/uL PT (9.0-12.0) sec INR (<1.2) APTT (22.0-30.0) sec Sodium (137-145) mmol/L Potassium (3.5-5.1) mmol/L Chloride (98-107) mmol/L Carbon Dioxide (22-30) mmol/L Anion Gap mmol/L BUN (9-20) mg/dL Creatinine (0.66-1.25) mg/dL Est GFR (CKD-EPI)AfAm (>60 ml/min/1.73 sqM) Est GFR (CKD-EPI)NonAf (>60 ml/min/1.73 sqM) Glucose (74-99) mg/dL POC Glucose (mg/dL) (75-99) mg/dL POC Glu Freezer Machine Operator ID Plasma Lactic Acid Chris (0.7-2.0) mmol/L Calcium (8.4-10.2) mg/dL Total Bilirubin (0.2-1.3) mg/dL AST (17-59) U/L ALT (21-72) U/L Alkaline Phosphatase (38-126) U/L Troponin I (0.000-0.034) ng/mL Total Protein (6.3-8.2) g/dL Albumin (3.5-5.0) g/dL Urine Color Light Yellow Urine Appearance Clear (Clear) Urine pH 5.5 (5.0-8.0) Ur Specific Rex 1.009 (1.001-1.035) Urine Protein 2+ H (Negative) Urine Glucose (UA) 4+ H (Negative) Urine Ketones Negative (Negative) Urine Blood Large H (Negative) Urine Nitrite Negative (Negative) Urine Bilirubin Negative (Negative) Urine Urobilinogen <2.0 (<2.0) mg/dL Ur Leukocyte Esterase Negative (Negative) Urine RBC 6 H (0-5) /hpf Urine WBC 1 (0-5) /hpf Influenza Type A RNA Not Detected (Not Detectd) Influenza Type B (PCR) Not Detected (Not Detectd) Disposition Clinical Impression: Anemia, SIRS (systemic inflammatory response syndrome) Disposition: ADMITTED IP TO THIS [facility] Condition: Fair Referrals: [facility] [Primary Care Provider] - 1-2 days Decision to Admit Reason: Admit from EC Decision Date: 09/07/18 Decision Time: 01:21
--- NOTE | 2018-09-06 23:52 | XR ---
EXAMINATION TYPE: XR chest 2V DATE OF EXAM: 09/06/2018 COMPARISON: 08/27/2018 HISTORY: Fever TECHNIQUE: Frontal and lateral views of the chest are obtained. FINDINGS: Heart and mediastinum are normal. Lungs are clear. Costophrenic angles are clear. Bony tho rax is intact. IMPRESSION: Normal chest. Inspiration decreased slightly compared to last exam.
[2018-09-07 00:03] LABS: Appearance,Urine Clear (Clear); Bilirubin,Urine Negative (Negative); Blood,Urine Large (Negative); Color,Urine Light Yellow; Glucose,Urine (UA) 4+ (Negative); Ketones,Urine Negative (Negative); Leukocyte Esterase,Urine Negative (Negative); Nitrite,Urine Negative (Negative); PH, Urine 5.5 (5.0-8.0); Protein,Urine 2+ (Negative); RBC,Urine 6 /hpf (0-5); Specific Gravity,Urine 1.009 (1.001-1.035); Urobilinogen,Urine <2.0 mg/dL (<2.0); WBC,Urine 1 /hpf (0-5)
[2018-09-07] MEDS ORDERED: VANCOMYCIN IV PER PHARMACY 1 EACH MISC MISCELLANE PRN ×2 (01:10→15:45)
[2018-09-07] MEDS ORDERED: CEFEPIME 1 GM in SODIUM CHLORIDE 0.9% 50 ML IVPB STA (01:11)
[2018-09-07] MEDS ORDERED: NALOXONE 0.4 MG/ML 1 ML VIAL IV PRN (01:11)
[2018-09-07] MEDS ORDERED: ACETAMINOPHEN TAB 325 MG TAB PO PRN (01:11)
[2018-09-07] MEDS ORDERED: VANCOMYCIN 2,000 MG in SODIUM CHLORIDE 0.9% 500 ML 500 ML IVPB STA (01:12)
[2018-09-07] MEDS ORDERED: INSULIN REGULAR 100 UNIT/ML VIAL IV ONE (01:14)
[2018-09-07] MEDS: SODIUM CHLORIDE 0.9% 1,000 ML IV SCH ×3 (02:19→22:07)
[2018-09-07 02:49] LABS: Glucose,Whole Blood 338 mg/dL (75-99)
[2018-09-07] MEDS: traMADol 50 MG TAB PO PRN (03:20)
[2018-09-07] MEDS ORDERED: NICOTINE 14MG/24HR PATCH TRANSDERM STA (03:47)
[2018-09-07 06:14] LABS: Glucose,Whole Blood 235 mg/dL (75-99)
[2018-09-07 07:40] LABS: Glucose,Whole Blood 187 mg/dL (75-99)
[2018-09-07] MEDS: INSULIN ASPART 100 UNIT/ML 1 ML 10 ML VIAL SQ SCH ×3 (07:57→17:58)
[2018-09-07] MEDS: VANCOMYCIN 2,000 MG in SODIUM CHLORIDE 0.9% 500 ML 500 ML IVPB SCH (15:11)
[2018-09-07] MEDS ORDERED: SODIUM CHLORIDE 0.9% 1,000 ML IV ONE (16:03)
[2018-09-07 16:05] LABS: Glucose,Whole Blood 211 mg/dL (75-99)
[2018-09-07 16:05] LABS: Glucose,Whole Blood 218 mg/dL (75-99)
[2018-09-07 16:30] VITALS: BMI 40.1
[2018-09-07 17:26] LABS: Glucose,Whole Blood 188 mg/dL (75-99)
[2018-09-07 21:02] LABS: Glucose,Whole Blood 197 mg/dL (75-99)
--- NOTE | 2018-09-07 21:47 | P.HPIM ---
History of Present Illness This is a pleasant 47 years old male with past medical history of asthma, diabetes mellitus, GERD, GI bleed, hypertension, seizure disorder, sleep apnea not on BiPAP, chronic back and neck pain with spinal stenosis, degenerative joint disease, scoliosis and chronic diarrhea/constipation, schizophrenia and depression. Patient presents because of generalized body pain and tachypnea. Patient states that he has these 2 symptoms over 2 months but he decided to come today because he was kicked out of his prison so he decided to come to the hospital. It looks like he has severe right toe infection when his toe is more than doubled in size and looks necrotic and greenish and was afraid that if they will cut his toenail keep cutting other parts of his legs, I explained to the patient that it'll become more dangerous and septic if this not been evaluated and treated and he agrees for that On admission he has fever of 101.7, His WBC is 5.1K, hemoglobin is 8.5 , about 3 months ago that was 11. INR is 1.0, hyponatremia with 127 corrected for hyperglycemia 436 will Be 132 or 135. Lactic acid of 2.1, elevated glucose of 338 to 443. UA showing 14 2+ and 4+ glucose and large blood negative WBC. Creatinine 1.1) her baseline of 0.7-1.138 EKG showing sinus tachycardia at 103 with QTC of 463. No significant ST-T changes. In the emergency room patient got Tylenol and was started on antibiotics of cefepime and vancomycin and infectious diseases consults been called Review of Systems CONSTITUTIONAL: No fever, no malaise, no fatigue. HEENT: No recent visual problems or hearing problems. Denied any sore throat. CARDIOVASCULAR: No orthopnea, PND, no palpitations, no syncope. PULMONARY: No shortness of breath, no cough, no hemoptysis. GASTROINTESTINAL: No diarrhea, no nausea, no vomiting, no abdominal pain. Normoactive bowel sounds. NEUROLOGICAL: No headaches, no weakness, no numbness. HEMATOLOGICAL: Denies any bleeding or petechiae. GENITOURINARY: Denies any burning micturition, frequency, or urgency. MUSCULOSKELETAL/RHEUMATOLOGICAL: Denies any joint pain, swelling, or any muscle pain. ENDOCRINE: Denies any polyuria or polydipsia. Past Medical History Past Medical History: Asthma, Diabetes Mellitus, GERD/Reflux, GI Bleed, Hypertension, Osteoarthritis (OA), Seizure Disorder, Skin Disorder, Sleep Apnea/ CPAP/BIPAP Additional Past Medical History / Comment(s): wound rt great toe,,LAST SEIZURE 28 YRS AGO. chronic back/neck pain. DOES NOT USE CPAP. SPINAL STENOSIS, DDD IN BACK, SCOLIOSIS, IBS, psoriasis, frequent urination, chronic diarrhea/ constipation issues, schizophrenia,depression, add/adhd., History of Any Multi-Drug Resistant Organisms: None Reported Past Surgical History: Cholecystectomy, Heart Catheterization, Tonsillectomy Additional Past Surgical History / Comment(s): PAIN PROCEDURES, colonscopy with polyp removal 12/03/17 with repair and transfusion , Past Anesthesia/Blood Transfusion Reactions: Motion Sickness Past Psychological History: ADD/ADHD, Schizophrenia, Depression, Schizophrenia Smoking Status: Current every day smoker Past Alcohol Use History: None Reported Past Drug Use History: Marijuana - Past Family History Father History Unknown: Yes Family Medical History: Unable to Obtain Additional Family Medical History / Comment(s): pt has'nt seen his father since he was age 5 Mother History Unknown: Yes Family Medical History: No Reported History Additional Family Medical History / Comment(s): Mother at age 55yrs of [place]. Medications and Allergies Home Medications Medication Instructions Recorded Confirmed Type Omeprazole 20 mg PO BID 11/30/17 09/06/18 History Insulin Glargine [Lantus] 30 unit SQ HS 04/08/18 09/06/18 History Atorvastatin [Lipitor] 10 mg PO DAILY 07/11/18 09/06/18 History Sennosides [Senna] 8.6 mg PO HS PRN 07/20/18 09/06/18 History Sertraline [Zoloft] 50 mg PO BID 08/27/18 09/06/18 History amLODIPine [Norvasc] 5 mg PO DAILY 08/27/18 09/06/18 History clonazePAM [KlonoPIN] 0.5 mg PO TID 08/27/18 09/06/18 History risperiDONE [RisperDAL] 3 mg PO BID 08/27/18 09/06/18 History Albuterol Inhaler [Ventolin Hfa 2 puff INHALATION RT-Q4H PRN 09/06/18 09/06/18 History Inhaler] Cholecalciferol [Vitamin D3] 5,000 unit PO DAILY 09/06/18 09/06/18 History Divalproex Sodium [Depakote] 500 mg PO BID 09/06/18 09/06/18 History Docusate [Colace] 100 mg PO DAILY PRN 09/06/18 09/06/18 History Doxycycline [Vibramycin] 100 mg PO BID 09/06/18 09/06/18 History Furosemide [Lasix] 20 mg PO BID 09/06/18 09/06/18 History INSULIN LISPRO (humaLOG) [humaLOG] See Protocol SQ AC-TID 09/06/18 09/06/18 History Lisinopril [Zestril] 20 mg PO DAILY 09/06/18 09/06/18 History Loratadine [Claritin] 10 mg PO DAILY 09/06/18 09/06/18 History Paliperidone IM [Invega Sustenna] 156 mg IM ONCE 09/06/18 09/06/18 History Potassium Chloride 10meq Capsule 10 meq PO BID 09/06/18 09/06/18 History Allergies Allergy/AdvReac Type Severity Reaction Status Date / Time bisacodyl Allergy suppository Verified 09/06/18 22:00 [From Dulcolax (bisacodyl)] caused severe dizziness, states ok to take pills gabapentin Allergy seizures Verified 09/06/18 22:00 lactulose Allergy Rash/Hives Verified 09/06/18 22:00 Penicillins Allergy Unknown Verified 09/06/18 22:00 Childhood clozapine [From Clozaril] AdvReac Severe Aggression Verified 09/06/18 22:00 Physical Exam Vitals: Vital Signs Temp Pulse Resp BP Pulse Ox 09/07/18 14:51 98.2 F 93 18 125/84 92 L 09/07/18 08:29 87 18 141/78 98 09/07/18 07:12 98 09/07/18 06:15 98.5 F 09/07/18 06:11 16 107/47 88 L 09/07/18 04:04 100.2 F H 09/07/18 04:00 95 16 140/72 98 09/07/18 02:24 99.4 F 96 16 171/63 97 09/07/18 00:12 101.7 F H 107 H 18 165/82 98 09/06/18 21:54 103 F H 117 H 16 182/87 99 GENERAL: The patient is alert and oriented x3, not in any acute distress. Well developed, well nourished. HEENT: Pupils are round and equally reacting to light. EOMI. No scleral icterus. No conjunctival pallor. Normocephalic, atraumatic. No pharyngeal erythema. No thyromegaly. CARDIOVASCULAR: S1 and S2 present. No murmurs, rubs, or gallops. PULMONARY: Chest is clear to auscultation, no wheezing or crackles. ABDOMEN: Soft, nontender, nondistended, normoactive bowel sounds. No palpable organomegaly. MUSCULOSKELETAL: No joint swelling or deformity. EXTREMITIES: No cyanosis, clubbing, or pedal edema. NEUROLOGICAL: Gross neurological examination did not reveal any focal deficits. SKIN: No rashes. Results CBC & Chem 7: 09/06/18 22:09/06/18: Labs: Abnormal Lab Results - Last 24 Hours (Table) 09/06/18 09/06/18 09/06/18 Range/Units 22:19 22:19 22:19 RBC 3.06 L (4.30-5.90) m/uL Hgb 8.5 L D (13.0-17.5) gm/dL Hct 25.5 L (39.0-53.0) % Plt Count 117 L (150-450) k/uL Lymphocytes # 0.4 L (1.0-4.8) k/uL Sodium 127 L (137-145) mmol/L Glucose 436 H (74-99) mg/dL POC Glucose (mg/dL) (75-99) mg/dL Plasma Lactic Acid Chris 2.1 H* (0.7-2.0) mmol/L Calcium 8.2 L (8.4-10.2) mg/dL Total Protein 5.2 L (6.3-8.2) g/dL Albumin 2.5 L (3.5-5.0) g/dL Urine Protein (Negative) Urine Glucose (UA) (Negative) Urine Blood (Negative) Urine RBC (0-5) /hpf 09/06/18 09/06/18 09/07/18 Range/Units 22:44 23:40 02:27 RBC (4.30-5.90) m/uL Hgb (13.0-17.5) gm/dL Hct (39.0-53.0) % Plt Count (150-450) k/uL Lymphocytes # (1.0-4.8) k/uL Sodium (137-145) mmol/L Glucose (74-99) mg/dL POC Glucose (mg/dL) 443 H 338 H (75-99) mg/dL Plasma Lactic Acid Chris (0.7-2.0) mmol/L Calcium (8.4-10.2) mg/dL Total Protein (6.3-8.2) g/dL Albumin (3.5-5.0) g/dL Urine Protein 2+ H (Negative) Urine Glucose (UA) 4+ H (Negative) Urine Blood Large H (Negative) Urine RBC 6 H (0-5) /hpf 09/07/18 09/07/18 Range/Units 06:12 07:38 RBC (4.30-5.90) m/uL Hgb (13.0-17.5) gm/dL Hct (39.0-53.0) % Plt Count (150-450) k/uL Lymphocytes # (1.0-4.8) k/uL Sodium (137-145) mmol/L Glucose (74-99) mg/dL POC Glucose (mg/dL) 235 H 187 H (75-99) mg/dL Plasma Lactic Acid Chris (0.7-2.0) mmol/L Calcium (8.4-10.2) mg/dL Total Protein (6.3-8.2) g/dL Albumin (3.5-5.0) g/dL Urine Protein (Negative) Urine Glucose (UA) (Negative) Urine Blood (Negative) Urine RBC (0-5) /hpf Microbiology - Last 24 Hours (Table) 09/06/18 23:40 Urine Culture - Preliminary Urine,Voided Assessment and Plan Assessment: Possible tracheobronchitis versus early pneumonia SIRS syndrome with fever and tachycardia Severe Sepsis with SIRS and elevated lactic acid, source of infection is unknown Dehydration History of asthma History of diabetes mellitus History of GERD History of GI bleeding Essential hypertension Remote history of seizure History of sleep apnea not on BiPAP/CPAP History of chronic back pain and neck pain with spinal stenosis and History of degenerative joint disease Scoliosis History of chronic diarrhea and constipation History of schizophrenia and depression Plan: This is a pleasant 47 years old male who presents with severe sepsis and respiratory tract infection. Continue with antibiotics. Switch vancomycin to pharmacy to dose. Call infectious disease consult which was already ordered old. Continue with IV fluids. Pain management Labs and medication were reviewed.. Continue same treatment. Continue with symptomatic treatment. Resume home medication. Monitor lytes and vitals. DVT and GI prophylaxis. Further recommendations of the clinical course of the patient DVT prophylaxis: Subcutaneous heparin GI Prophylaxis: Pepcid PT/OT: Pending Prognosis is guarded
[2018-09-08] MEDS: SODIUM CHLORIDE 0.9% 1,000 ML IV SCH ×4 (00:11→17:38)
[2018-09-08] MEDS ORDERED: SENNOSIDES 8.6 MG TAB PO PRN (01:11)
[2018-09-08] MEDS ORDERED: DOCUSATE 100 MG CAP PO PRN (01:11)
[2018-09-08] MEDS: risperiDONE 1 MG TAB PO SCH ×3 (01:32→20:07)
[2018-09-08] MEDS: VANCOMYCIN 2,000 MG in SODIUM CHLORIDE 0.9% 500 ML 500 ML IVPB SCH ×2 (02:55→14:50)
[2018-09-08 07:28] LABS: Glucose,Whole Blood 171 mg/dL (75-99)
[2018-09-08] MEDS: CHOLECALCIFEROL 1,000 UNIT TAB PO SCH (07:51)
[2018-09-08] MEDS: INSULIN ASPART 100 UNIT/ML 1 ML 10 ML VIAL SQ SCH ×3 (07:51→17:37)
[2018-09-08] MEDS: ATORVASTATIN 10 MG TAB PO SCH (07:51)
[2018-09-08] MEDS: POTASSIUM CHLORIDE ER 10 MEQ TAB.ER.PRT PO SCH ×2 (07:51→20:07)
[2018-09-08] MEDS: LISINOPRIL 20 MG TAB PO SCH (07:51)
[2018-09-08] MEDS: LORATADINE 10 MG TAB PO SCH (07:52)
[2018-09-08] MEDS: PANTOPRAZOLE 40 MG TABLET PO SCH (07:52)
[2018-09-08] MEDS: DIVALPROEX 500 MG TABLET.DR PO SCH ×2 (07:52→20:07)
[2018-09-08] MEDS: SERTRALINE 50 MG TAB PO SCH ×2 (07:52→20:07)
[2018-09-08] MEDS: amLODIPine 5 MG TAB PO SCH (07:52)
[2018-09-08] MEDS ORDERED: FUROSEMIDE 20 MG TAB PO SCH (09:00)
[2018-09-08 10:57] LABS: Hemoglobin A1C 7.6 % (4.0-6.0)
[2018-09-08 11:42] LABS: Glucose,Whole Blood 207 mg/dL (75-99)
[2018-09-08 11:49] LABS: Anion Gap 2 mmol/L; Blood Urea Nitrogen 17 mg/dL (9-20); Calcium 8.1 mg/dL (8.4-10.2); Carbon Dioxide 27 mmol/L (22-30); Chloride 108 mmol/L (98-107); Glucose 190 mg/dL (74-99); HCT 24.3 % (39.0-53.0); Hypochromasia Slight; MCH 27.2 pg (25.0-35.0); MCV 82.7 fL (80.0-100.0); Mean Platelet Volume 7.3; Platelet Count 132 k/uL (150-450); Poikilocytosis Slight; Potassium 4.7 mmol/L (3.5-5.1); RBC 2.93 m/uL (4.30-5.90); RDW 14.5 % (11.5-15.5); Sodium 137 mmol/L (137-145); WBC 3.2 k/uL (3.8-10.6)
[2018-09-08] MEDS: ALBUTEROL NEBULIZED 2.5 MG/3 ML INHALATION PRN (15:57)
--- NOTE | 2018-09-08 16:19 | P.PN ---
Subjective 47-year-old is admitted for possible pneumonia although found to have left foot infection patient was started on vancomycin and infectious disease was consulted patient is being treated for severe sepsis secondary to foot infection most probably may need anaerobic and gram-negative coverage, will let infectious disease will decide about the antibiotics patient had infected left foot with foul-smelling discharge. Constitutional: Denied any fatigue denied any fever. Cardio vascular: denied any chest pain, palpitations Gastrointestinal denied any nausea vomiting Pulmonary: Denied any shortness of breath cough Neurologic denied any new focal deficits All inpatient medications were reviewed and appropriate changes in these medications as dictated in the interval history and assessment and plan. Objective - Vital Signs Vital signs: Vital Signs Temp 98.3 F 09/08/18 14:30 Pulse 95 09/08/18 14:30 Resp 18 09/08/18 14:30 BP 158/74 09/08/18 14:30 Pulse Ox 94 L 09/08/18 14:30 Intake & Output 09/07/18 09/08/18 09/08/18 18:59 06:59 18:59 Intake Total 300 600 Output Total 1250 Balance -950 600 Weight 127 kg 127 kg Intake: Oral 300 600 Output: Urine 1250 Other: # Voids 2 2 - Exam PHYSICAL EXAMINATION: GENERAL: The patient is alert and oriented x3, not in any acute distress. Well developed, well nourished. HEENT: Pupils are round and equally reacting to light. EOMI. No scleral icterus. No conjunctival pallor. Normocephalic, atraumatic. No pharyngeal erythema. No thyromegaly. CARDIOVASCULAR: S1 and S2 present. No murmurs, rubs, or gallops. PULMONARY: Chest is clear to auscultation, no wheezing or crackles. ABDOMEN: Soft, nontender, nondistended, normoactive bowel sounds. No palpable organomegaly. MUSCULOSKELETAL: No joint swelling or deformity. EXTREMITIES: No cyanosis, clubbing, or pedal edema. NEUROLOGICAL: Gross neurological examination did not reveal any focal deficits. SKIN: She and has significant infected left foot with foul-smelling discharge please refer to nursing documentation for at length details of the infected wound. - Labs CBC & Chem 7: 09/08/18 11:05 09/08/18 11:05 Labs: Abnormal Lab Results - Last 24 Hours (Table) 09/06/18 09/07/18 09/07/18 Range/Units 22:19 17:13 20:59 WBC (3.8-10.6) k/uL RBC (4.30-5.90) m/uL Hgb (13.0-17.5) gm/dL Hct (39.0-53.0) % Plt Count (150-450) k/uL Chloride (98-107) mmol/L Glucose (74-99) mg/dL POC Glucose (mg/dL) 188 H 197 H (75-99) mg/dL Hemoglobin A1c 7.6 H (4.0-6.0) % Calcium (8.4-10.2) mg/dL 09/08/18 09/08/18 09/08/18 Range/Units 07:25 11:05 11:05 WBC 3.2 L (3.8-10.6) k/uL RBC 2.93 L (4.30-5.90) m/uL Hgb 8.0 L (13.0-17.5) gm/dL Hct 24.3 L (39.0-53.0) % Plt Count 132 L (150-450) k/uL Chloride 108 H (98-107) mmol/L Glucose 190 H (74-99) mg/dL POC Glucose (mg/dL) 171 H (75-99) mg/dL Hemoglobin A1c (4.0-6.0) % Calcium 8.1 L (8.4-10.2) mg/dL 09/08/18 Range/Units 11:39 WBC (3.8-10.6) k/uL RBC (4.30-5.90) m/uL Hgb (13.0-17.5) gm/dL Hct (39.0-53.0) % Plt Count (150-450) k/uL Chloride (98-107) mmol/L Glucose (74-99) mg/dL POC Glucose (mg/dL) 207 H (75-99) mg/dL Hemoglobin A1c (4.0-6.0) % Calcium (8.4-10.2) mg/dL Microbiology - Last 24 Hours (Table) 09/06/18 23:40 Urine Culture - Final Urine,Voided 09/06/18 22:19 Blood Culture - Preliminary Blood No Growth after 24 hours Assessment and Plan Plan: Abscess secondary to left foot infection diabetic foot infection patient will need anaerobic and gram-negative coverage as well continue vancomycin patient probably will need cefepime and metronidazole as well and the infectious disease will evaluate the patient Acute tracheobronchitis Lactic acidosis secondary to sepsis improved Dehydration proved Type 2diabetes mellitus: Uncontrolled blood sugars due to noncompliance will continue with present regimen depending on insulin requirements will titrate his regimen GERD Essential hypertension History of sleep apnea not on BiPAP/CPAP History of chronic back pain and neck pain with spinal stenosis and History of degenerative joint disease Scoliosis History of chronic diarrhea and constipation History of schizophrenia and depression
[2018-09-08 16:34] LABS: Glucose,Whole Blood 292 mg/dL (75-99)
[2018-09-08] MEDS: IPRATROPIUM-ALBUTEROL 3 ML NEB INHALATION SCH (18:58)
--- NOTE | 2018-09-08 19:17 | CONS ---
CONSULTATION This is a 47-year-old gentleman. I was consulted for right foot second toe evaluation. The patient has a wet gangrene of the right foot second toe. The patient had this toe infection for the past 2 months. The patient came with temperature 101.7 and the patient is on IV antibiotic. His hemoglobin A1c is 8.5. MEDICAL HISTORY: History of ( ) diabetes, history of GI bleed, history of hypertension, history of seizure disorder, history of sleep apnea. The patient was seen in his room. His neck is supple. Chest has rhonchi bilateral. Abdomen is soft. Femoral pulses are present. Right foot 2nd toe has wet gangrene, swollen and foul odor smell. PLAN: Amputation of the right foot second toe. Prognosis is guarded. MMODL / IJN: [id number] /
[2018-09-08 21:17] LABS: Glucose,Whole Blood 271 mg/dL (75-99)
[2018-09-08] MEDS: INSULIN DETEMIR 100 UNIT/ML 10 ML VIAL SQ SCH (21:33)
--- NOTE | 2018-09-08 21:50 | P.CONS ---
History of Present Illness - Reason for Consult Consult date: 09/08/18 - Chief Complaint Right toe ulcer - History of Present Illness 47-year-old male with quite a complex past medical history especially with the psychosocial difficulties resulted with his schizophrenia and depression. Relives his sister has kicked him out of the home and [facility] is now [facility] but apparently because he has some medical illness that he cannot stay at the [facility] and cousin came to the emergency center. He has many troubles include diabetes not as type II poorly controlled with a high hemoglobin A1c, history of asthma sleep apnea seizures spinal stenosis and chronic pain. The patient relates that the right foot second toe has been abnormal and has gotten considerably worse. He states that he has been seen by a care administrative tech in the past, Dr. Cullen not sure when this was she did give him some nail care. It appears as been marked worsening since that point in time. He is not able to sense much pain to the toe, and is denying fevers chills or rigors or sweats. He does not feel well overall. His appetite however is been well he is eating without nausea or emesis and does have intermittent diarrhea but not currently a problem. Unable to recall specific trauma but as noted has been afraid to have further care to the toe. Review of Systems 47-year-old male with obesity does seem to be comfortable, ate the whole dinner HEENT:Denies headache or acute visual change. Denies sinus or mouth discomforts. Denies neck stiffness or pain. Denies significant oral cavity pain. Denies difficulty on swallowing. Dentition is poor Lungs: Symmetrical air entry is noted expiratory wheezes are scattered over and bronchial sounds no dullness or egophony Cardiovascular: Denies significant shortness of breath, chest pain, chest wall pain, orthopnea, dyspnea on exertion, syncope Gastrointestinal:Denies nausea, vomiting, diarrhea, constipation, hematemesis, melena, hematochezia. No no significant change of bowel habit noticed. Musculoskeletal: denies significant myalgias or arthralgias. No new joint swelling. Chronic back pain Skin: Is evidence of the significant swelling to the right foot second toe drainage that is following odor.. Neuro: Denies headache or visual change. Denies any new onset weakness or difficulty with ambulation. No recent seizures cannot recall fall or trauma Psychiatric: Has a history of psychoses depression and anxiety, does not relate to significant polysubstance abuse Endocrine: Relates he feels poorly has had weight gain and uncontrolled blood sugar does not check her sugars at home especially once he became homeless Past Medical History Past Medical History: Asthma, Diabetes Mellitus, GERD/Reflux, GI Bleed, Hypertension, Osteoarthritis (OA), Seizure Disorder, Skin Disorder, Sleep Apnea/ CPAP/BIPAP Additional Past Medical History / Comment(s): wound rt great toe,,LAST SEIZURE 28 YRS AGO. chronic back/neck pain. DOES NOT USE CPAP. SPINAL STENOSIS, DDD IN BACK, SCOLIOSIS, IBS, psoriasis, frequent urination, chronic diarrhea/ constipation issues, schizophrenia,depression, add/adhd., History of Any Multi-Drug Resistant Organisms: None Reported Past Surgical History: Cholecystectomy, Heart Catheterization, Tonsillectomy Additional Past Surgical History / Comment(s): PAIN PROCEDURES, colonscopy with polyp removal 12/03/17 with repair and transfusion , Past Anesthesia/Blood Transfusion Reactions: Motion Sickness Past Psychological History: ADD/ADHD, Schizophrenia, Depression, Schizophrenia Additional Psychological History / Comment(s): Prior psychiatric hospitalization. Was living with his sister. No children related. No animal exposures. Relates that he is a and unclear about his benefits. No international travel. No current alcohol use. Current tobacco use Smoking Status: Current every day smoker Past Alcohol Use History: None Reported Past Drug Use History: Marijuana - Past Family History Father History Unknown: Yes Family Medical History: Unable to Obtain Additional Family Medical History / Comment(s): pt has'nt seen his father since he was age 5 Mother History Unknown: Yes Family Medical History: No Reported History Additional Family Medical History / Comment(s): Mother at age 55yrs of [place]. Medications and Allergies Home Medications and Allergies Comment(s): Current Medications Acetaminophen (Tylenol Tab) 650 mg PO Q6HR PRN PRN Reason: Mild Pain or Fever > 100.5 Albuterol Sulfate (Ventolin Nebulized) 2.5 mg INHALATION RT-Q4H PRN PRN Reason: Shortness Of Breath Last Admin: 09/08/18 15:57 Dose: 2.5 mg Albuterol/Ipratropium (Duoneb 0.5 Mg-3 Mg/3 Ml Soln) 3 ml INHALATION RT-QID [place] Last Admin: 09/08/18 18:58 Dose: 3 ml Amlodipine Besylate (Norvasc) 5 mg PO DAILY [facility] Last Admin: 09/08/18 07:52 Dose: 5 mg Atorvastatin Calcium (Lipitor) 10 mg PO DAILY [facility] Last Admin: 09/08/18 07:51 Dose: 10 mg Cholecalciferol (Vitamin D3) 5,000 unit PO DAILY [facility] Last Admin: 09/08/18 07:51 Dose: 5,000 unit Clonazepam (Klonopin) 0.5 mg PO TID PRN PRN Reason: anxiety Divalproex Sodium (Depakote) 500 mg PO BID [facility] Last Admin: 09/08/18 20:07 Dose: 500 mg Docusate Sodium (Colace) 100 mg PO DAILY PRN PRN Reason: Constipation Hydromorphone HCl (Dilaudid) 0.5 mg IVP Q5M PRN PRN Reason: Pain Control Stop: 09/09/18 06:01 Vancomycin HCl 2,000 mg/ (Sodium Chloride) 500 mls @ 167 mls/hr IVPB Q12H [facility] Last Admin: 09/08/18 14:50 Dose: 167 mls/hr Sodium Chloride (Saline 0.9%) 1,000 mls @ 100 mls/hr IV .Q10H [facility] Last Admin: 09/08/18 17:38 Dose: 100 mls/hr Lactated Ringer's (Lactated Ringers) 1,000 mls @ 20 mls/hr IV .Q24H [facility] Insulin Aspart (Novolog) 0 unit SQ AC-TID [facility]; Protocol Last Admin: 09/08/18 17:37 Dose: 7 unit Insulin Detemir (Levemir) 30 unit SQ HS [facility] Last Admin: 09/08/18 21:33 Dose: 30 unit Lisinopril (Zestril) 20 mg PO DAILY [facility] Last Admin: 09/08/18 07:51 Dose: 20 mg Loratadine (Claritin) 10 mg PO DAILY [facility] Last Admin: 09/08/18 07:52 Dose: 10 mg Miscellaneous Information (Vancomycin Trough Due) 1 each MISCELLANE ONCE ONE Stop: 09/09/18 14:01 Morphine Sulfate (Morphine Sulfate (Inj)) 2 mg IV Q5M PRN PRN Reason: Pain Control Stop: 09/09/18 06:01 Naloxone HCl (Narcan) 0.2 mg IV Q2M PRN PRN Reason: Opioid Reversal Ondansetron HCl (Zofran) 4 mg IVP ONCE PRN PRN Reason: Nausea And Vomiting Stop: 09/09/18 06:01 Pantoprazole Sodium (Protonix) 40 mg PO DAILY@0730 [facility] Last Admin: 09/08/18 07:52 Dose: 40 mg Potassium Chloride (K-Dur 10) 10 meq PO BID [facility] Last Admin: 09/08/18 20:07 Dose: 10 meq Risperidone (Risperdal) 3 mg PO BID [facility] Last Admin: 09/08/18 20:07 Dose: 3 mg Senna (Senokot) 8.6 mg PO HS PRN PRN Reason: Constipation Sertraline HCl (Zoloft) 50 mg PO BID [facility] Last Admin: 09/08/18 20:07 Dose: 50 mg Tramadol HCl (Ultram) 50 mg PO Q6H PRN PRN Reason: Moderate Pain Last Admin: 09/07/18 03:20 Dose: 50 mg Home Medications Medication Instructions Recorded Confirmed Type Omeprazole 20 mg PO BID 11/30/17 09/06/18 History Insulin Glargine [Lantus] 30 unit SQ HS 04/08/18 09/06/18 History Atorvastatin [Lipitor] 10 mg PO DAILY 07/11/18 09/06/18 History Sennosides [Senna] 8.6 mg PO HS PRN 07/20/18 09/06/18 History Sertraline [Zoloft] 50 mg PO BID 08/27/18 09/06/18 History amLODIPine [Norvasc] 5 mg PO DAILY 08/27/18 09/06/18 History clonazePAM [KlonoPIN] 0.5 mg PO TID 08/27/18 09/06/18 History risperiDONE [RisperDAL] 3 mg PO BID 08/27/18 09/06/18 History Albuterol Inhaler [Ventolin Hfa 2 puff INHALATION RT-Q4H PRN 09/06/18 09/06/18 History Inhaler] Cholecalciferol [Vitamin D3] 5,000 unit PO DAILY 09/06/18 09/06/18 History Divalproex Sodium [Depakote] 500 mg PO BID 09/06/18 09/06/18 History Docusate [Colace] 100 mg PO DAILY PRN 09/06/18 09/06/18 History Doxycycline [Vibramycin] 100 mg PO BID 09/06/18 09/06/18 History Furosemide [Lasix] 20 mg PO BID 09/06/18 09/06/18 History INSULIN LISPRO (humaLOG) [humaLOG] See Protocol SQ AC-TID 09/06/18 09/06/18 History Lisinopril [Zestril] 20 mg PO DAILY 09/06/18 09/06/18 History Loratadine [Claritin] 10 mg PO DAILY 09/06/18 09/06/18 History Paliperidone IM [Invega Sustenna] 156 mg IM ONCE 09/06/18 09/06/18 History Potassium Chloride 10meq Capsule 10 meq PO BID 09/06/18 09/06/18 History Allergies Allergy/AdvReac Type Severity Reaction Status Date / Time bisacodyl Allergy suppository Verified 09/06/18 22:00 [From Dulcolax (bisacodyl)] caused severe dizziness, states ok to take pills gabapentin Allergy seizures Verified 09/06/18 22:00 lactulose Allergy Rash/Hives Verified 09/06/18 22:00 Penicillins Allergy Unknown Verified 09/06/18 22:00 Childhood clozapine [From Clozaril] AdvReac Severe Aggression Verified 09/06/18 22:00 Physical Exam Vitals: Vital Signs Temp Pulse Pulse Resp BP Pulse Ox 09/08/18 19:13 88 09/08/18 18:59 88 09/08/18 16:08 92 09/08/18 15:58 92 09/08/18 14:30 98.3 F 95 18 158/74 94 L 09/08/18 07:26 98.8 F 95 18 140/77 93 L 09/07/18 23:00 99.9 F H 87 24 151/81 94 L Intake and Output 09/08/18 09/08/18 09/08/18 06:59 14:59 22:59 Intake Total 100 600 Output Total 1250 Balance -1150 600 Intake: Oral 100 600 Output: Urine 1250 Other: # Voids 2 2 3 Weight 127 kg 47-year-old male with obesity seems comfortable at this time HEENT: Anicteric conjunctiva are pink and moist nasal mucosa grossly intact without significant lesions, there is no thrush. Dentition is poor Neck: The neck is supple without significant lymphadenopathy or thyromegaly. Lungs: Symmetrical bilateral air entry with expiratory wheezes that are scattered no ayala bronchial sounds with dullness or egophony obese, Heart: Regular rate and rhythm with an audible S1-S2, no S3 no S4. There is no significant murmur click or rub, PMI was nondisplaced. Abdomen: Positive bowel sounds soft and nontender without palpable masses or organomegaly. There was no guarding or rebound. Extremities: The upper extremities have excellent pulses they are symmetric, no significant petechiae or telangiectasia. No splinter hemorrhages were noted. Lower extremities reveal evidence of some chronic changes, right lower extremity has the significant change second toe which is grossly abnormal and deformed with open ulceration exposed bone and purulent drainage. There is erythema of the toe minimal erythema to the dorsum of the foot. Minimal swelling to the limb. No lymphadenopathy in the right inguinal region no other abnormal lymph nodes noted Neuro: Awake alert oriented to person place and time, no gross focal sensory motor deficits however does have decreased sensation to bilateral toes Results CBC & Chem 7: 09/08/18 11:05 09/08/18 11:05 Labs: Abnormal Lab Results - Last 24 Hours (Table) 09/06/18 09/08/18 09/08/18 Range/Units 22:19 07:25 11:05 WBC (3.8-10.6) k/uL RBC (4.30-5.90) m/uL Hgb (13.0-17.5) gm/dL Hct (39.0-53.0) % Plt Count (150-450) k/uL Chloride 108 H (98-107) mmol/L Glucose 190 H (74-99) mg/dL POC Glucose (mg/dL) 171 H (75-99) mg/dL Hemoglobin A1c 7.6 H (4.0-6.0) % Calcium 8.1 L (8.4-10.2) mg/dL 09/08/18 09/08/18 09/08/18 Range/Units 11:05 11:39 16:33 WBC 3.2 L (3.8-10.6) k/uL RBC 2.93 L (4.30-5.90) m/uL Hgb 8.0 L (13.0-17.5) gm/dL Hct 24.3 L (39.0-53.0) % Plt Count 132 L (150-450) k/uL Chloride (98-107) mmol/L Glucose (74-99) mg/dL POC Glucose (mg/dL) 207 H 292 H (75-99) mg/dL Hemoglobin A1c (4.0-6.0) % Calcium (8.4-10.2) mg/dL 09/08/18 Range/Units 21:06 WBC (3.8-10.6) k/uL RBC (4.30-5.90) m/uL Hgb (13.0-17.5) gm/dL Hct (39.0-53.0) % Plt Count (150-450) k/uL Chloride (98-107) mmol/L Glucose (74-99) mg/dL POC Glucose (mg/dL) 271 H (75-99) mg/dL Hemoglobin A1c (4.0-6.0) % Calcium (8.4-10.2) mg/dL Microbiology - Last 24 Hours (Table) 09/06/18 23:40 Urine Culture - Final Urine,Voided 09/06/18 22:19 Blood Culture - Preliminary Blood No Growth after 24 hours Laboratory Results WBC 3.2 k/uL (3.8-10.6) L 09/08/18 11:05 RBC 2.93 m/uL (4.30-5.90) L 09/08/18 11:05 Hgb 8.0 gm/dL (13.0-17.5) L 09/08/18 11:05 Hct 24.3 % (39.0-53.0) L 09/08/18 11:05 MCV 82.7 fL (80.0-100.0) 09/08/18 11:05 MCH 27.2 pg (25.0-35.0) 09/08/18 11:05 MCHC 33.0 g/dL (31.0-37.0) 09/08/18 11:05 RDW 14.5 % (11.5-15.5) 09/08/18 11:05 Plt Count 132 k/uL (150-450) L 09/08/18 11:05 Neutrophils % 83 % 09/06/18 22:19 Lymphocytes % 8 % 09/06/18 22:19 Monocytes % 6 % 09/06/18 22:19 Eosinophils % 1 % 09/06/18 22:19 Basophils % 1 % 09/06/18 22:19 Neutrophils # 4.3 k/uL (1.3-7.7) 09/06/18 22:19 Lymphocytes # 0.4 k/uL (1.0-4.8) L 09/06/18 22:19 Monocytes # 0.3 k/uL (0-1.0) 09/06/18 22:19 Eosinophils # 0.1 k/uL (0-0.7) 09/06/18 22:19 Basophils # 0.0 k/uL (0-0.2) 09/06/18 22:19 Hypochromasia Slight 09/08/18 11:05 Poikilocytosis Slight 09/08/18 11:05 PT 10.8 sec (9.0-12.0) 09/06/18 22: INR 1.0 (<1.2) 09/06/18 22:19 APTT 27.6 sec (22.0-30.0) 09/06/18 22:19 Sodium 137 mmol/L (137-145) 09/08/18 11:05 Potassium 4.7 mmol/L (3.5-5.1) 09/08/18 11:05 Chloride 108 mmol/L (98-107) H 09/08/18 11:05 Carbon Dioxide 27 mmol/L (22-30) 09/08/18 11:05 Anion Gap 2 mmol/L 09/08/18 11:05 BUN 17 mg/dL (9-20) 09/08/18 11:05 Creatinine 0.92 mg/dL (0.66-1.25) 09/08/18 11:05 Est GFR (CKD-EPI)AfAm >90 (>60 ml/min/1.73 sqM) 09/08/18 11:05 Est GFR (CKD-EPI)NonAf >90 (>60 ml/min/1.73 sqM) 09/08/18 11:05 Glucose 190 mg/dL (74-99) H 09/08/18 11:05 POC Glucose (mg/dL) 271 mg/dL (75-99) H 09/08/18 21:06 POC Glu Collating Machine Operator ID Verona Carrillo 09/08/18 21:[address] Glu mg/dL 171 09/06/18 22:19 Hemoglobin A1c 7.6 % (4.0-6.0) H 09/06/18 22:19 Lactic Ac Sepsis Rflx Y 09/06/18 23:15 Plasma Lactic Acid Chris 1.8 mmol/L (0.7-2.0) 09/07/18 02:53 Calcium 8.1 mg/dL (8.4-10.2) L 09/08/18 11:05 Total Bilirubin 0.8 mg/dL (0.2-1.3) 09/06/18 22:19 AST 23 U/L (17-59) 09/06/18 22:19 ALT 33 U/L (21-72) 09/06/18 22:19 Alkaline Phosphatase 62 U/L (38-126) 09/06/18 22:19 Troponin I <0.012 ng/mL (0.000-0.034) 09/07/18 04:05 Total Protein 5.2 g/dL (6.3-8.2) L 09/06/18 22:19 Albumin 2.5 g/dL (3.5-5.0) L 09/06/18 22:19 Urine Color Light Yellow 09/06/18 23:40 Urine Appearance Clear (Clear) 09/06/18 23:40 Urine pH 5.5 (5.0-8.0) 09/06/18 23:40 Ur Specific [place] 1.009 (1.001-1.035) 09/06/18 23:40 Urine Protein 2+ (Negative) H 09/06/18 23:40 Urine Glucose (UA) 4+ (Negative) H 09/06/18 23:40 Urine Ketones Negative (Negative) 09/06/18 23:40 Urine Blood Large (Negative) H 09/06/18 23:40 Urine Nitrite Negative (Negative) 09/06/18 23:40 Urine Bilirubin Negative (Negative) 09/06/18 23:40 Urine Urobilinogen <2.0 mg/dL (<2.0) 09/06/18 23:40 Ur Leukocyte Esterase Negative (Negative) 09/06/18 23:40 Urine RBC 6 /hpf (0-5) H 01/05/19 23:40 Urine WBC 1 /hpf (0-5) 09/06/18 23:40 Influenza Type A RNA Not Detected (Not Detectd) 09/06/18 23:40 Influenza Type B (PCR) Not Detected (Not Detectd) 09/06/18 23:40 Microbiology 09/06/18 23:40 Urine,Voided Urine Culture - Final 09/06/18 22:19 Blood Blood Culture - Preliminary No Growth after 24 hours Chest x-ray: report reviewed (No evidence of pneumonia) Assessment and Plan (1) Diabetic ulcer of foot associated with diabetes mellitus due to underlying condition, with necrosis of bone Narrative/Plan: 47-year-old male with history of underlying schizophrenia and depression who has significant psychosocial challenges, he does not monitor his blood glucose. Hemoglobin A1c is elevated at 7.6 blood sugars have been very elevated since coming to hospital. Is evidence of the gangrenous changes to the right foot second toe on the basis of uncontrolled diabetes. Patient seen by vascular surgery with plans for toe amputation possible ray amputation tomorrow. Antibiotic therapy has been started with vancomycin given his ALLERGIES, will add Invanz also at this point in time for coverage of gram negatives as well as anaerobic bacteria, and a diabetic foot ulcer. Local wound care will be a Adaptic dressing to cover the site. Therapy will be utilized to the left foot there is the eschar present over the medial metatarsal head. There is cellulitis on the right foot for which antibiotic therapy should be helpful. Social work and diabetes team input required. Current Visit: Yes Status: Acute Code(s): E08.621 - DIABETES MELLITUS DUE TO UNDERLYING CONDITION W FOOT ULCER; L97.504 - NON-PRS CHRONIC ULCER OTH PRT UNSP FOOT W NECROSIS OF BONE SNOMED Code(s): 256139752 (2) DM (diabetes mellitus), type 2, uncontrolled w/neurologic complication Current Visit: Yes Status: Acute Code(s): E11.49 - TYPE 2 DIABETES W OTH DIABETIC NEUROLOGICAL COMPLICATION; E11.65 - TYPE 2 DIABETES MELLITUS WITH HYPERGLYCEMIA SNOMED Code(s): 255484730 (3) Gangrene of toe of right foot Current Visit: Yes Status: Acute Code(s): I96 - GANGRENE, NOT ELSEWHERE CLASSIFIED SNOMED Code(s): 37659394010678136
[2018-09-08] MEDS: ERTAPENEM 1 GM in SODIUM CHLORIDE 0.9% 50 ML IVPB SCH (22:58)
[2018-09-08] MEDS: NICOTINE 14MG/24HR PATCH TRANSDERM SCH (22:58)
[2018-09-09] MEDS: VANCOMYCIN 2,000 MG in SODIUM CHLORIDE 0.9% 500 ML 500 ML IVPB SCH ×3 (02:31→20:41)
[2018-09-09] MEDS: SODIUM CHLORIDE 0.9% 1,000 ML IV SCH ×3 (03:55→22:18)
[2018-09-09] MEDS ORDERED: MORPHINE SULFATE 2 MG/ML SYRINGE IV PRN (06:00)
[2018-09-09] MEDS ORDERED: ONDANSETRON 4 MG/2 ML VIAL IVP PRN (06:00)
[2018-09-09] MEDS ORDERED: HYDROmorphone 0.5 MG/0.5 ML SYRINGE IVP PRN (06:00)
[2018-09-09] MEDS: LACTATED RINGERS 1,000 ML IV SCH ×2 (07:20→22:18)
[2018-09-09 07:48] LABS: Glucose,Whole Blood 120 mg/dL (75-99)
[2018-09-09] MEDS: IPRATROPIUM-ALBUTEROL 3 ML NEB INHALATION SCH ×4 (07:56→19:39)
[2018-09-09] MEDS: INSULIN ASPART 100 UNIT/ML 1 ML 10 ML VIAL SQ SCH ×3 (08:07→18:03)
[2018-09-09] MEDS: CHOLECALCIFEROL 1,000 UNIT TAB PO SCH (08:09)
[2018-09-09] MEDS: LORATADINE 10 MG TAB PO SCH (08:17)
[2018-09-09] MEDS: LISINOPRIL 20 MG TAB PO SCH (08:17)
[2018-09-09] MEDS: ATORVASTATIN 10 MG TAB PO SCH (08:17)
[2018-09-09] MEDS: SERTRALINE 50 MG TAB PO SCH ×2 (08:17→20:44)
[2018-09-09] MEDS: POTASSIUM CHLORIDE ER 10 MEQ TAB.ER.PRT PO SCH ×2 (08:17→20:44)
[2018-09-09] MEDS: PANTOPRAZOLE 40 MG TABLET PO SCH (08:17)
[2018-09-09] MEDS: NICOTINE 14MG/24HR PATCH TRANSDERM SCH ×2 (08:17→20:49)
[2018-09-09] MEDS: DIVALPROEX 500 MG TABLET.DR PO SCH ×2 (08:17→20:44)
[2018-09-09] MEDS: risperiDONE 1 MG TAB PO SCH ×2 (08:17→20:44)
[2018-09-09] MEDS: amLODIPine 5 MG TAB PO SCH (08:18)
[2018-09-09] MEDS: ERTAPENEM 1 GM in SODIUM CHLORIDE 0.9% 50 ML IVPB SCH (08:22)
[2018-09-09 11:45] LABS: Glucose,Whole Blood 123 mg/dL (75-99)
[2018-09-09] MEDS ORDERED: IV FLUID CONTINUATION 1,000 ML IV ONE (12:42)
[2018-09-09] MEDS ORDERED: MIDAZOLAM 2 MG/2 ML VIAL ONE (13:47)
[2018-09-09] MEDS ORDERED: fentaNYL (PF) 50 MCG/ML 2 ML AMP ONE (13:47)
[2018-09-09] MEDS ORDERED: LIDOCAINE 1% INJ 10MG/ML (20 ML MDV) ONE (13:47)
[2018-09-09] MEDS ORDERED: ePHEDrine SULFATE/0.9% NACL/PF 50 MG/5 ML SYRINGE IV ONE (13:47)
[2018-09-09] MEDS ORDERED: VANCOMYCIN TROUGH DUE 1 EACH MISC MISCELLANE ONE (14:00)
[2018-09-09 14:44] LABS: Glucose,Whole Blood 119 mg/dL (75-99)
--- NOTE | 2018-09-09 15:25 | P.PN ---
Subjective Progress Note Date: 09/09/18 47-year-old male with quite a complex past medical history especially with the psychosocial difficulties resulted with his schizophrenia and depression. Relives his sister has kicked him out of the home and he is now staying [place] the [place] [facility] but apparently because he has some medical illness that he cannot stay at the [place] [facility] and cousin came to the emergency center. He has many troubles include diabetes not as type II poorly controlled with a high hemoglobin A1c, history of asthma sleep apnea seizures spinal stenosis and chronic pain. The patient relates that the right foot second toe has been abnormal and has gotten considerably worse. He states that he has been seen by a job coach/job developer in the past, Dr. Cullen not sure when this was she did give him some nail care. It appears as been marked worsening since that point in time. He is not able to sense much pain to the toe, and is denying fevers chills or rigors or sweats. He does not feel well overall. His appetite however is been well he is eating without nausea or emesis and does have intermittent diarrhea but not currently a problem. Unable to recall specific trauma but as noted has been afraid to have further care to the toe 09/09/2018 patient will be going to the operating room for the amputation of the gangrenous second toe. He has no new complaints. Cultures are process in antibiotic therapy with vancomycin and ertapenem is being utilized for the gangrenous change of the foot and with diabetes concerns to polymicrobial infection. Objective - Vital Signs Vital signs: Vital Signs Temp 98 F 09/09/18 14:25 Pulse 99 09/09/18 14:40 Resp 16 09/09/18 14:40 BP 142/59 09/09/18 14:40 Pulse Ox 99 09/09/18 14:40 Intake & Output 09/08/18 09/09/18 09/09/18 18:59 06:59 18:59 Intake Total 600 200 400 Output Total 700 30 Balance 600 -500 370 Weight 127 kg Intake: IV 400 Oral 600 200 Output: Urine 700 Estimated Blood Loss 30 Other: # Voids 2 1 2 - Exam 47-year-old male with obesity seems comfortable at this time HEENT: Anicteric conjunctiva are pink and moist nasal mucosa grossly intact without significant lesions, there is no thrush. Dentition is poor Neck: The neck is supple without significant lymphadenopathy or thyromegaly. Lungs: Symmetrical bilateral air entry with expiratory wheezes that are scattered no ayala bronchial sounds with dullness or egophony obese, Heart: Regular rate and rhythm with an audible S1-S2, no S3 no S4. There is no significant murmur click or rub, PMI was nondisplaced. Abdomen: Positive bowel sounds soft and nontender without palpable masses or organomegaly. There was no guarding or rebound. Extremities: The upper extremities have excellent pulses they are symmetric, no significant petechiae or telangiectasia. No splinter hemorrhages were noted. Lower extremities reveal evidence of some chronic changes, right lower extremity has the significant change second toe which is grossly abnormal and deformed with open ulceration exposed bone and purulent drainage. There is erythema of the toe minimal erythema to the dorsum of the foot. Minimal swelling to the limb. No lymphadenopathy in the right inguinal region no other abnormal lymph nodes noted Neuro: Awake alert oriented to person place and time, no gross focal sensory motor deficits however does have decreased sensation to bilateral toes - Labs CBC & Chem 7: 09/08/18 11:05 09/08/18 11:05 Labs: Abnormal Lab Results - Last 24 Hours (Table) 09/08/18 09/08/18 09/09/18 Range/Units 16:33 21:06 07:41 POC Glucose (mg/dL) 292 H 271 H 120 H (75-99) mg/dL 09/09/18 09/09/18 Range/Units 11:42 14:39 POC Glucose (mg/dL) 123 H 119 H (75-99) mg/dL Microbiology - Last 24 Hours (Table) 09/06/18 22:19 Blood Culture - Preliminary Blood No Growth after 48 hours 09/06/18 23:40 Urine Culture - Final Urine,Voided Laboratory Results WBC 3.2 k/uL (3.8-10.6) L 09/08/18 11:05 RBC 2.93 m/uL (4.30-5.90) L 09/08/18 11:05 Hgb 8.0 gm/dL (13.0-17.5) L 09/08/18 11:05 Hct 24.3 % (39.0-53.0) L 09/08/18 11:05 MCV 82.7 fL (80.0-100.0) 09/08/18 11:05 MCH 27.2 pg (25.0-35.0) 09/08/18 11:05 MCHC 33.0 g/dL (31.0-37.0) 09/08/18 11:05 RDW 14.5 % (11.5-15.5) 09/08/18 11:05 Plt Count 132 k/uL (150-450) L 09/08/18 11:05 Neutrophils % 83 % 09/06/18 22:19 Lymphocytes % 8 % 09/06/18 22:19 Monocytes % 6 % 09/06/18 22:19 Eosinophils % 1 % 09/06/18 22:19 Basophils % 1 % 09/06/18 22:19 Neutrophils # 4.3 k/uL (1.3-7.7) 09/06/18 22:19 Lymphocytes # 0.4 k/uL (1.0-4.8) L 09/06/18 22:19 Monocytes # 0.3 k/uL (0-1.0) 09/06/18 22:19 Eosinophils # 0.1 k/uL (0-0.7) 09/06/18 22:19 Basophils # 0.0 k/uL (0-0.2) 09/06/18 22:19 Hypochromasia Slight 09/08/18 11:05 Poikilocytosis Slight 09/08/18 11:05 PT 10.8 sec (9.0-12.0) 09/06/18 22:19 INR 1.0 (<1.2) 09/06/18 22:19 APTT 27.6 sec (22.0-30.0) 09/06/18 22:19 Sodium 137 mmol/L (137-145) 09/08/18 11:05 Potassium 4.7 mmol/L (3.5-5.1) 09/08/18 11:05 Chloride 108 mmol/L (98-107) H 09/08/18 11:05 Carbon Dioxide 27 mmol/L (22-30) 09/08/18 11:05 Anion Gap 2 mmol/L 09/08/18 11:05 BUN 17 mg/dL (9-20) 09/08/18 11:05 Creatinine 0.92 mg/dL (0.66-1.25) 09/08/18 11:05 Est GFR (CKD-EPI)AfAm >90 (>60 ml/min/1.73 sqM) 09/08/18 11:05 Est GFR (CKD-EPI)NonAf >90 (>60 ml/min/1.73 sqM) 09/08/18 11:05 Glucose 190 mg/dL (74-99) H 09/08/18 11:05 POC Glucose (mg/dL) 119 mg/dL (75-99) H 09/09/18 14:39 POC Glu Veterinary Nurse Roselyn Lyons 09/09/18 14:[address] Glu mg/dL 171 09/06/18 22:19 Hemoglobin A1c 7.6 % (4.0-6.0) H 09/06/18 22:19 Lactic Ac Sepsis Rflx Y 09/06/18 23:15 Plasma Lactic Acid Chris 1.8 mmol/L (0.7-2.0) 09/07/18 02:53 Calcium 8.1 mg/dL (8.4-10.2) L 09/08/18 11:05 Total Bilirubin 0.8 mg/dL (0.2-1.3) 09/06/18 22:19 AST 23 U/L (17-59) 09/06/18 22:19 ALT 33 U/L (21-72) 09/06/18 22:19 Alkaline Phosphatase 62 U/L (38-126) 09/06/18 22:19 Troponin I <0.012 ng/mL (0.000-0.034) 09/07/18 04:05 Total Protein 5.2 g/dL (6.3-8.2) L 09/06/18 22:19 Albumin 2.5 g/dL (3.5-5.0) L 09/06/18 22:19 Urine Color Light Yellow 09/06/18 23:40 Urine Appearance Clear (Clear) 09/06/18 23:40 Urine pH 5.5 (5.0-8.0) 09/06/18 23:40 Ur Specific [place] 1.009 (1.001-1.035) 09/06/18 23:40 Urine Protein 2+ (Negative) H 09/06/18 23:40 Urine Glucose (UA) 4+ (Negative) H 09/06/18 23:40 Urine Ketones Negative (Negative) 09/06/18 23:40 Urine Blood Large (Negative) H 09/06/18 23:40 Urine Nitrite Negative (Negative) 09/06/18 23:40 Urine Bilirubin Negative (Negative) 09/06/18 23:40 Urine Urobilinogen <2.0 mg/dL (<2.0) 09/06/18 23:40 Ur Leukocyte Esterase Negative (Negative) 09/06/18 23:40 Urine RBC 6 /hpf (0-5) H 09/06/18 23:40 Urine WBC 1 /hpf (0-5) 09/06/18 23:40 Influenza Type A RNA Not Detected (Not Detectd) 09/06/18 23:40 Influenza Type B (PCR) Not Detected (Not Detectd) 09/06/18 23:40 Microbiology 09/06/18 22:19 Blood Blood Culture - Preliminary No Growth after 48 hours 09/06/18 23:40 Urine,Voided Urine Culture - Final Assessment and Plan (1) Diabetic ulcer of foot associated with diabetes mellitus due to underlying condition, with necrosis of bone Narrative/Plan: 47-year-old male with history of underlying schizophrenia and depression who has significant psychosocial challenges, he does not monitor his blood glucose. Hemoglobin A1c is elevated at 7.6 blood sugars have been very elevated since coming to hospital. Is evidence of the gangrenous changes to the right foot second toe on the basis of uncontrolled diabetes. Patient seen by vascular surgery with plans for toe amputation possible ray amputation tomorrow. Antibiotic therapy has been started with vancomycin given his ALLERGIES, will add Invanz also at this point in time for coverage of gram negatives as well as anaerobic bacteria, and a diabetic foot ulcer. Local wound care will be a Adaptic dressing to cover the site. Therapy will be utilized to the left foot there is the eschar present over the medial metatarsal head. There is cellulitis on the right foot for which antibiotic therapy should be helpful. Social work and diabetes team input required. 09/09/2018 patient operative room today for the amputation of the right foot second toe gangrene. The outcome of surgery will determine the next set of plans as well cultures to help with the possibility of outpatient aquatic therapy whether it is oral IV. The patient is homeless and has many issues and outpatient IV antibiotic therapy may not be possible, however possible rehab may allow this type of treatment. We'll follow after amputation. Blood sugars are improving. Current Visit: Yes Status: Acute Code(s): E08.621 - DIABETES MELLITUS DUE TO UNDERLYING CONDITION W FOOT ULCER; L97.504 - NON-PRS CHRONIC ULCER OTH PRT UNSP FOOT W NECROSIS OF BONE SNOMED Code(s): 014033343 (2) DM (diabetes mellitus), type 2, uncontrolled w/neurologic complication Current Visit: Yes Status: Acute Code(s): E11.49 - TYPE 2 DIABETES W OTH DIABETIC NEUROLOGICAL COMPLICATION; E11.65 - TYPE 2 DIABETES MELLITUS WITH HYPERGLYCEMIA SNOMED Code(s): 264109990 (3) Gangrene of toe of right foot Current Visit: Yes Status: Acute Code(s): I96 - GANGRENE, NOT ELSEWHERE CLASSIFIED SNOMED Code(s): 20351325032385278
[2018-09-09 16:00] LABS: HCT 25.8 % (39.0-53.0); HGB 8.6 gm/dL (13.0-17.5); Hypochromasia Slight; MCH 27.7 pg (25.0-35.0); MCHC 33.1 g/dL (31.0-37.0); MCV 83.6 fL (80.0-100.0); Platelet Count 182 k/uL (150-450); Poikilocytosis Slight; RBC 3.09 m/uL (4.30-5.90); RDW 14.6 % (11.5-15.5); WBC 4.4 k/uL (3.8-10.6)
[2018-09-09 16:15] LABS: Anion Gap 3 mmol/L; Blood Urea Nitrogen 14 mg/dL (9-20); Calcium 8.3 mg/dL (8.4-10.2); Carbon Dioxide 26 mmol/L (22-30); Chloride 111 mmol/L (98-107); Glucose 150 mg/dL (74-99); Potassium 4.2 mmol/L (3.5-5.1); Sodium 140 mmol/L (137-145)
--- NOTE | 2018-09-09 16:37 | P.PN ---
Subjective 47-year-old is admitted for possible pneumonia although found to have left foot infection patient was started on vancomycin and infectious disease was consulted patient is being treated for severe sepsis secondary to foot infection most probably may need anaerobic and gram-negative coverage, will let infectious disease will decide about the antibiotics patient had infected left foot with foul-smelling discharge. 09/09/2018 Patient is presently on meropenem and vancomycin won't cultures are pending Constitutional: Denied any fatigue denied any fever. Cardio vascular: denied any chest pain, palpitations Gastrointestinal denied any nausea vomiting Pulmonary: Denied any shortness of breath cough Neurologic denied any new focal deficits All inpatient medications were reviewed and appropriate changes in these medications as dictated in the interval history and assessment and plan. Objective - Vital Signs Vital signs: Vital Signs Temp 98 F 09/09/18 14:25 Pulse 99 09/09/18 14:40 Resp 16 09/09/18 14:40 BP 142/59 09/09/18 14:40 Pulse Ox 99 09/09/18 14:40 Intake & Output 09/08/18 09/09/18 09/09/18 18:59 06:59 18:59 Intake Total 600 200 400 Output Total 700 30 Balance 600 -500 370 Weight 127 kg Intake: IV 400 Oral 600 200 Output: Urine 700 Estimated Blood Loss 30 Other: # Voids 2 1 3 # Bowel Movements 1 - Exam PHYSICAL EXAMINATION: GENERAL: The patient is alert and oriented x3, not in any acute distress. Well developed, well nourished. HEENT: Pupils are round and equally reacting to light. EOMI. No scleral icterus. No conjunctival pallor. Normocephalic, atraumatic. No pharyngeal erythema. No thyromegaly. CARDIOVASCULAR: S1 and S2 present. No murmurs, rubs, or gallops. PULMONARY: Chest is clear to auscultation, no wheezing or crackles. ABDOMEN: Soft, nontender, nondistended, normoactive bowel sounds. No palpable organomegaly. MUSCULOSKELETAL: No joint swelling or deformity. EXTREMITIES: No cyanosis, clubbing, or pedal edema. NEUROLOGICAL: Gross neurological examination did not reveal any focal deficits. SKIN: She and has significant infected left foot with foul-smelling discharge please refer to nursing documentation for at length details of the infected wound. - Labs CBC & Chem 7: 09/09/18 15:44 09/09/18 15:44 Labs: Abnormal Lab Results - Last 24 Hours (Table) 09/08/18 09/09/18 09/09/18 Range/Units 21:06 07:41 11:42 RBC (4.30-5.90) m/uL Hgb (13.0-17.5) gm/dL Hct (39.0-53.0) % Chloride (98-107) mmol/L Glucose (74-99) mg/dL POC Glucose (mg/dL) 271 H 120 H 123 H (75-99) mg/dL Calcium (8.4-10.2) mg/dL 09/09/18 09/09/18 09/09/18 Range/Units 14:39 15:44 15:44 RBC 3.09 L (4.30-5.90) m/uL Hgb 8.6 L (13.0-17.5) gm/dL Hct 25.8 L (39.0-53.0) % Chloride 111 H (98-107) mmol/L Glucose 150 H (74-99) mg/dL POC Glucose (mg/dL) 119 H (75-99) mg/dL Calcium 8.3 L (8.4-10.2) mg/dL Microbiology - Last 24 Hours (Table) 09/06/18 22:19 Blood Culture - Preliminary Blood No Growth after 48 hours 09/06/18 23:40 Urine Culture - Final Urine,Voided Assessment and Plan Plan: Abscess secondary to left foot infection diabetic foot infection patient will need anaerobic and gram-negative coverage as well continue vancomycin and ertapenem. Acute tracheobronchitis Lactic acidosis secondary to sepsis improved Dehydration proved Type 2diabetes mellitus: Uncontrolled blood sugars due to noncompliance will continue with present regimen depending on insulin requirements will titrate his regimen GERD Essential hypertension History of sleep apnea not on BiPAP/CPAP History of chronic back pain and neck pain with spinal stenosis and History of degenerative joint disease Scoliosis History of chronic diarrhea and constipation History of schizophrenia and depression
[2018-09-09 18:00] LABS: Glucose,Whole Blood 171 mg/dL (75-99)
--- NOTE | 2018-09-09 19:45 | OP ---
OPERATIVE REPORT PREOP DIAGNOSIS: Wet gangrene of the right foot second toe. OPERATION PERFORMED: Ray amputation of the right foot second toe. DESCRIPTION OF PROCEDURE: The patient was brought to the operating room. Right foot and leg was prepped and drapes applied in the usual sterile manner. This patient had a wet gangrene in the right foot second toe. An elliptical incision made on the dorsal aspect of the foot, went circumferentially around the second toe and plantar aspect of the foot, deepened through skin fat and fascia. Tendons were divided until we reached the proximal phalanx, which was divided with bone cutter and the specimen was removed, which was sent for culture and sensitivity. Bleeding points were controlled and tissue was approximated with 3-0 Vicryl, we left the wound open because of infected wound and dressing applied. Patient was transferred to the recovery room in satisfactory condition. MMSOPHIE / BRIANN: [id number] /
[2018-09-09] MEDS: INSULIN DETEMIR 100 UNIT/ML 10 ML VIAL SQ SCH (20:45)
[2018-09-09 20:46] LABS: Glucose,Whole Blood 195 mg/dL (75-99)
[2018-09-09] MEDS: traMADol 50 MG TAB PO PRN (20:53)
[2018-09-09] MEDS: clonazePAM 0.5 MG TAB PO PRN ×2 (20:53→21:09)
[2018-09-10] MEDS ORDERED: traMADol 50 MG TAB ONE (03:47)
[2018-09-10 07:08] LABS: Glucose,Whole Blood 163 mg/dL (75-99)
[2018-09-10] MEDS: clonazePAM 0.5 MG TAB PO PRN ×2 (08:08→20:58)
[2018-09-10] MEDS: CHOLECALCIFEROL 1,000 UNIT TAB PO SCH (08:08)
[2018-09-10] MEDS: risperiDONE 1 MG TAB PO SCH ×2 (08:08→20:52)
[2018-09-10] MEDS: ATORVASTATIN 10 MG TAB PO SCH (08:08)
[2018-09-10] MEDS: POTASSIUM CHLORIDE ER 10 MEQ TAB.ER.PRT PO SCH ×2 (08:08→20:52)
[2018-09-10] MEDS: amLODIPine 5 MG TAB PO SCH (08:08)
[2018-09-10] MEDS: PANTOPRAZOLE 40 MG TABLET PO SCH (08:08)
[2018-09-10] MEDS: DIVALPROEX 500 MG TABLET.DR PO SCH ×2 (08:08→20:52)
[2018-09-10] MEDS: ERTAPENEM 1 GM in SODIUM CHLORIDE 0.9% 50 ML IVPB SCH (08:09)
[2018-09-10] MEDS: INSULIN ASPART 100 UNIT/ML 1 ML 10 ML VIAL SQ SCH ×3 (08:09→18:07)
[2018-09-10] MEDS: SERTRALINE 50 MG TAB PO SCH ×2 (08:09→20:52)
[2018-09-10] MEDS: LISINOPRIL 20 MG TAB PO SCH (08:09)
[2018-09-10] MEDS: NICOTINE 14MG/24HR PATCH TRANSDERM SCH (08:09)
[2018-09-10] MEDS: LORATADINE 10 MG TAB PO SCH (08:09)
[2018-09-10] MEDS: IPRATROPIUM-ALBUTEROL 3 ML NEB INHALATION SCH ×4 (08:21→20:41)
[2018-09-10] MEDS: VANCOMYCIN 2,000 MG in SODIUM CHLORIDE 0.9% 500 ML 500 ML IVPB SCH ×2 (08:45→20:57)
--- NOTE | 2018-09-10 08:49 | PN ---
PROGRESS NOTE Mr. Graham had a right foot second toe ray amputation. Today we have changed the dressing. The wound is open. We put Aquacel silver, which will be changed every 48 hours. If the patient goes home, we will follow in the wound clinic this Saturday. The patient is on IV antibiotic, which will be continued. MMODL / IJN: [id number] /
[2018-09-10] MEDS: SODIUM CHLORIDE 0.9% 1,000 ML IV SCH ×2 (09:03→21:00)
[2018-09-10 09:33] LABS: Anion Gap 2 mmol/L; Blood Urea Nitrogen 14 mg/dL (9-20); Calcium 8.2 mg/dL (8.4-10.2); Carbon Dioxide 27 mmol/L (22-30); Chloride 108 mmol/L (98-107); Glucose 136 mg/dL (74-99); Potassium 4.2 mmol/L (3.5-5.1); Sodium 137 mmol/L (137-145)
[2018-09-10 12:22] LABS: Glucose,Whole Blood 220 mg/dL (75-99)
[2018-09-10 17:16] LABS: Glucose,Whole Blood 316 mg/dL (75-99)
[2018-09-10] MEDS: traMADol 50 MG TAB PO PRN (19:20)
[2018-09-10 21:23] LABS: Glucose,Whole Blood 290 mg/dL (75-99)
[2018-09-10] MEDS: INSULIN DETEMIR 100 UNIT/ML 10 ML VIAL SQ SCH (22:10)
[2018-09-11] MEDS: LACTATED RINGERS 1,000 ML IV SCH (04:35)
[2018-09-11] MEDS: SODIUM CHLORIDE 0.9% 1,000 ML IV SCH (05:39)
[2018-09-11] MEDS: traMADol 50 MG TAB PO PRN ×2 (05:39→17:33)
[2018-09-11] MEDS: IPRATROPIUM-ALBUTEROL 3 ML NEB INHALATION SCH ×4 (07:43→21:11)
[2018-09-11 08:01] LABS: Glucose,Whole Blood 263 mg/dL (75-99)
[2018-09-11] MEDS: ERTAPENEM 1 GM in SODIUM CHLORIDE 0.9% 50 ML IVPB SCH (08:04)
[2018-09-11] MEDS: risperiDONE 1 MG TAB PO SCH ×2 (08:06→20:21)
[2018-09-11] MEDS: CHOLECALCIFEROL 1,000 UNIT TAB PO SCH (08:06)
[2018-09-11] MEDS: INSULIN ASPART 100 UNIT/ML 1 ML 10 ML VIAL SQ SCH ×3 (08:06→17:31)
[2018-09-11] MEDS: DIVALPROEX 500 MG TABLET.DR PO SCH ×2 (08:06→20:21)
[2018-09-11] MEDS: LORATADINE 10 MG TAB PO SCH (08:06)
[2018-09-11] MEDS: SERTRALINE 50 MG TAB PO SCH ×2 (08:06→20:21)
[2018-09-11] MEDS: clonazePAM 0.5 MG TAB PO PRN ×2 (08:06→18:29)
[2018-09-11] MEDS: POTASSIUM CHLORIDE ER 10 MEQ TAB.ER.PRT PO SCH ×2 (08:06→20:21)
[2018-09-11] MEDS: NICOTINE 14MG/24HR PATCH TRANSDERM SCH (08:07)
[2018-09-11] MEDS: ATORVASTATIN 10 MG TAB PO SCH (08:07)
[2018-09-11] MEDS: PANTOPRAZOLE 40 MG TABLET PO SCH (08:07)
[2018-09-11] MEDS: amLODIPine 5 MG TAB PO SCH (08:07)
[2018-09-11] MEDS: LISINOPRIL 20 MG TAB PO SCH (08:07)
[2018-09-11] MEDS: VANCOMYCIN 2,000 MG in SODIUM CHLORIDE 0.9% 500 ML 500 ML IVPB SCH (09:19)
[2018-09-11 09:55] LABS: Potassium 4.6 mmol/L (3.5-5.1)
[2018-09-11 10:04] LABS: Calcium 8.3 mg/dL (8.4-10.2)
[2018-09-11 12:15] LABS: Glucose,Whole Blood 295 mg/dL (75-99)
[2018-09-11 17:24] LABS: Glucose,Whole Blood 241 mg/dL (75-99)
--- NOTE | 2018-09-11 17:34 | P.PN ---
Progress Note - Text Progress Note Date: 09/11/18 Plan 6 weeks invanz if possible PICC requested, expect patient to go to [facility] for antibiotics and follow up wound center
[2018-09-11 20:30] LABS: Glucose,Whole Blood 287 mg/dL (75-99)
[2018-09-11] MEDS: INSULIN DETEMIR 100 UNIT/ML 10 ML VIAL SQ SCH (20:33)
[2018-09-11] MEDS ORDERED: INSULIN DETEMIR 100 UNIT/ML 10 ML VIAL SQ ONE (21:15)
--- NOTE | 2018-09-11 21:17 | P.PN ---
Subjective Progress Note Date: 09/10/18 Progress note being dictated for Dr. Young Interval history: This is a 47-year-old is admitted for possible pneumonia although found to have left foot infection patient was started on vancomycin and infectious disease was consulted patient is being treated for severe sepsis secondary to foot infection most probably may need anaerobic and gram-negative coverage, will let infectious disease will decide about the antibiotics patient had infected left foot with foul-smelling discharge. 09/09/2018 Patient is presently on meropenem and vancomycin won't cultures are pending Constitutional: Denied any fatigue denied any fever. Cardio vascular: denied any chest pain, palpitations Gastrointestinal denied any nausea vomiting Pulmonary: Denied any shortness of breath cough Neurologic denied any new focal deficits All inpatient medications were reviewed and appropriate changes in these medications as dictated in the interval history and assessment and plan. 09/10/2018 yesterday he underwent a right foot second toe amputation with vascular surgery, Dr. Zhang. Tolerated procedure well. Pain medication lasting only about 4 hours, frequency increased. Maintained on IV antibiotics. T-max 99.4. Original dressing changed this morning by surgery. Objective - Vital Signs Vital signs: Vital Signs Temp 97.9 F 09/10/18 15:00 Pulse 92 09/10/18 20:52 Resp 18 09/10/18 15:00 BP 173/87 09/10/18 15:00 Pulse Ox 97 09/10/18 20:43 Intake & Output 09/10/18 09/10/18 09/11/18 06:59 18:59 06:59 Intake Total 900 Output Total 600 Balance -600 900 Intake: Oral 900 Output: Urine 600 Other: # Voids 2 3 2 # Bowel Movements 2 1 - Exam GENERAL: The patient is alert and oriented x3, no acute distress. Well developed , well nourished. HEENT: Pupils are round and equally reacting to light. EOMI. No scleral icterus. No conjunctival pallor. Normocephalic, atraumatic. Oral mucosa moist CARDIOVASCULAR: S1 and S2 present. No murmurs, rubs, or gallops. PULMONARY: Chest is clear to auscultation, mild expiratory wheezing noted mostly on the right. ABDOMEN: Soft, nontender, nondistended, normoactive bowel sounds. No palpable organomegaly. MUSCULOSKELETAL: No joint swelling or deformity. EXTREMITIES: No cyanosis, clubbing, or pedal edema. NEUROLOGICAL: Gross neurological examination did not reveal any focal deficits. SKIN: Left foot dressing clean dry and intact, multiple tattoos all over. - Labs CBC & Chem 7: 09/09/18 15:44 09/11/18 09:08 Labs: Abnormal Lab Results - Last 24 Hours (Table) 09/10/18 09/10/18 09/10/18 Range/Units 06:55 08:47 12:19 Chloride 108 H (98-107) mmol/L Glucose 136 H (74-99) mg/dL POC Glucose (mg/dL) 163 H 220 H (75-99) mg/dL Calcium 8.2 L (8.4-10.2) mg/dL 09/10/18 Range/Units 17:14 Chloride (98-107) mmol/L Glucose (74-99) mg/dL POC Glucose (mg/dL) 316 H (75-99) mg/dL Calcium (8.4-10.2) mg/dL Microbiology - Last 24 Hours (Table) 09/09/18 14:00 Gram Stain - Preliminary Toe - Right Second Wound Culture - Preliminary 09/06/18 22:19 Blood Culture - Preliminary Blood No Growth after 72 hours 09/09/18 14:00 Anaerobic Culture - Preliminary Toe - Right Second Assessment and Plan Assessment: Abscess secondary to right diabetic foot infection. 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 Wound Cultures reporting strep agalactiae, final sensitivities pending Acute tracheobronchitis Lactic acidosis secondary to sepsis improved Dehydration proved Type 2diabetes mellitus: Uncontrolled blood sugars due to noncompliance GERD Essential hypertension History of sleep apnea not on BiPAP/CPAP History of chronic back pain and neck pain with spinal stenosis and History of degenerative joint disease Scoliosis History of chronic diarrhea and constipation History of schizophrenia and depression Plan: Continue current medication regime ,monitoring and symptomatic treatment. Maintain IV antibiotic therapy as per infectious disease. Cultures finalizing. Close monitoring of blood sugars. The impression and plan of care has been dictated as directed. : I performed a history and examination of this patient, discussed the same with the dictator. I agree with the dictator's note ,documented as a scribe. Any additional findings or plans will be noted.
--- NOTE | 2018-09-11 21:28 | P.PN ---
Subjective Progress Note Date: 09/11/18 Progress note being dictated for Dr. Young Interval history: This is a 47-year-old is admitted for possible pneumonia although found to have left foot infection patient was started on vancomycin and infectious disease was consulted patient is being treated for severe sepsis secondary to foot infection most probably may need anaerobic and gram-negative coverage, will let infectious disease will decide about the antibiotics patient had infected left foot with foul-smelling discharge. 09/09/2018 Patient is presently on meropenem and vancomycin won't cultures are pending Constitutional: Denied any fatigue denied any fever. Cardio vascular: denied any chest pain, palpitations Gastrointestinal denied any nausea vomiting Pulmonary: Denied any shortness of breath cough Neurologic denied any new focal deficits All inpatient medications were reviewed and appropriate changes in these medications as dictated in the interval history and assessment and plan. 09/10/2018 yesterday he underwent a right foot second toe amputation with vascular surgery, Dr. Zhang. Tolerated procedure well. Pain medication lasting only about 4 hours, frequency increased. Maintained on IV antibiotics. T-max 99.4. Original dressing changed this morning by surgery. 09/11/2017 no overnight events.afebrile. Pain controlled. Blood sugars uncontrolled. Cultures /sensitivities finalized. PICC line ordered. Denies chest pain, palpitations or increasing shortness of breath. Creatinine still the trending up, 1.17. Maintaining O2 sats of 93% on room air. Objective - Vital Signs Vital signs: Vital Signs Temp 97.3 F L 09/11/18 14:15 Pulse 92 09/11/18 21:11 Resp 20 09/11/18 14:15 BP 155/72 09/11/18 14:15 Pulse Ox 93 L 09/11/18 14:15 Intake & Output 09/11/18 09/11/18 09/12/18 06:59 18:59 06:59 Intake Total 900 950 Output Total 3100 Balance -2200 950 Intake: Oral 900 950 Output: Urine 3100 Other: # Voids 0 2 0 # Bowel Movements 0 0 - Exam GENERAL: The patient is sitting up in bed, alert and oriented x3, no acute distress. Well developed, well nourished. HEENT: Pupils are round and equally reacting to light. EOMI. No scleral icterus. Oral mucosa moist CARDIOVASCULAR: S1 and S2 present. No murmurs, rubs, or gallops. PULMONARY: Chest is clear to auscultation, mild expiratory wheezing ABDOMEN: Soft, nontender, nondistended, normoactive bowel sounds. No palpable organomegaly. MUSCULOSKELETAL: No joint swelling or deformity. EXTREMITIES: No cyanosis, clubbing, or pedal edema. NEUROLOGICAL: Gross neurological examination did not reveal any focal deficits. SKIN: right foot dressing clean dry and intact, multiple tattoos all over. - Labs CBC & Chem 7: 09/09/18 15:44 09/11/18 09:08 Labs: Abnormal Lab Results - Last 24 Hours (Table) 09/10/18 09/11/18 09/11/18 Range/Units 21:21 07:55 09:08 Chloride 109 H (98-107) mmol/L Glucose 248 H (74-99) mg/dL POC Glucose (mg/dL) 290 H 263 H (75-99) mg/dL Calcium 8.3 L (8.4-10.2) mg/dL 09/11/18 09/11/18 09/11/18 Range/Units 12:13 17:21 20:28 Chloride (98-107) mmol/L Glucose (74-99) mg/dL POC Glucose (mg/dL) 295 H 241 H 287 H (75-99) mg/dL Calcium (8.4-10.2) mg/dL Microbiology - Last 24 Hours (Table) 09/09/18 14:00 Gram Stain - Final Toe - Right Second Wound Culture - Final Strep agalactiae - (group b) 09/09/18 14:00 Anaerobic Culture - Preliminary Toe - Right Second 09/06/18 22:19 Blood Culture - Preliminary Blood No Growth after 96 hours Assessment and Plan Assessment: Abscess secondary to right diabetic foot infection. 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 Wound Cultures reporting strep agalactiae, Group B Acute tracheobronchitis Lactic acidosis secondary to sepsis improved Dehydration proved Type 2diabetes mellitus: Uncontrolled blood sugars due to noncompliance GERD Essential hypertension History of sleep apnea not on BiPAP/CPAP History of chronic back pain and neck pain with spinal stenosis and History of degenerative joint disease Scoliosis History of chronic diarrhea and constipation History of schizophrenia and depression Atelectasis Plan: Continue current medication regime ,monitoring and symptomatic treatment. Maintain IV antibiotics. PICC line tomorrow for IV antibiotic therapy at discharge. Premeal insulin added to med regime with Levemir dose increased. Close monitoring of blood sugars. Chest x-ray ordered. Incentive spirometer ordered. Close monitoring of renal function with repeat labs ordered for a.m. Discharge planning in progress for tomorrow to subacute rehab after PICC line placed. The impression and plan of care has been dictated as directed. : I performed a history and examination of this patient, discussed the same with the dictator. I agree with the dictator's note ,documented as a scribe. Any additional findings or plans will be noted.
[2018-09-12] MEDS: LACTATED RINGERS 1,000 ML IV SCH (06:38)
[2018-09-12 07:26] LABS: Glucose,Whole Blood 161 mg/dL (75-99)
[2018-09-12] MEDS: INSULIN ASPART 100 UNIT/ML 1 ML 10 ML VIAL SQ SCH ×6 (07:45→17:43)
[2018-09-12] MEDS: DIVALPROEX 500 MG TABLET.DR PO SCH ×2 (07:46→19:39)
[2018-09-12] MEDS: LISINOPRIL 20 MG TAB PO SCH (07:46)
[2018-09-12] MEDS: PANTOPRAZOLE 40 MG TABLET PO SCH (07:46)
[2018-09-12] MEDS: POTASSIUM CHLORIDE ER 10 MEQ TAB.ER.PRT PO SCH ×2 (07:46→19:40)
[2018-09-12] MEDS: risperiDONE 1 MG TAB PO SCH ×2 (07:46→19:39)
[2018-09-12] MEDS: CHOLECALCIFEROL 1,000 UNIT TAB PO SCH (07:46)
[2018-09-12] MEDS: amLODIPine 5 MG TAB PO SCH (07:46)
[2018-09-12] MEDS: LORATADINE 10 MG TAB PO SCH (07:46)
[2018-09-12] MEDS: NICOTINE 14MG/24HR PATCH TRANSDERM SCH (07:46)
[2018-09-12] MEDS: ATORVASTATIN 10 MG TAB PO SCH (07:46)
[2018-09-12] MEDS: SERTRALINE 50 MG TAB PO SCH ×2 (07:46→19:40)
[2018-09-12] MEDS ORDERED: VANCOMYCIN TROUGH DUE 1 EACH MISC MISCELLANE ONE (08:00)
[2018-09-12] MEDS: IPRATROPIUM-ALBUTEROL 3 ML NEB INHALATION SCH ×4 (08:00→20:05)
[2018-09-12 08:37] LABS: Basophils % (A) 1 %; Eosinophils # (A) 0.2 k/uL (0-0.7); Eosinophils % (A) 4 %; HCT 27.1 % (39.0-53.0); HGB 8.5 gm/dL (13.0-17.5); Hypochromasia Slight; Lymphocytes # (A) 1.1 k/uL (1.0-4.8); Lymphocytes % (A) 21 %; MCH 26.5 pg (25.0-35.0); MCHC 31.5 g/dL (31.0-37.0); MCV 83.9 fL (80.0-100.0); Mean Platelet Volume 6.7; Monocytes # (A) 0.3 k/uL (0-1.0); Monocytes % (A) 5 %; Neutrophils # (A) 3.4 k/uL (1.3-7.7); Neutrophils % (A) 67 %; Platelet Count 231 k/uL (150-450); Poikilocytosis Slight; RBC 3.23 m/uL (4.30-5.90); RDW 15.1 % (11.5-15.5)
[2018-09-12] MEDS: ERTAPENEM 1 GM in SODIUM CHLORIDE 0.9% 50 ML IVPB SCH (08:38)
[2018-09-12 09:07] LABS: Calcium 9.1 mg/dL (8.4-10.2)
[2018-09-12] MEDS ORDERED: LIDOCAINE 1% INJ 10MG/ML (20 ML MDV) ONE (09:40)
[2018-09-12] MEDS ORDERED: LIDOCAINE 1% INJ 10MG/ML (20 ML MDV) SQ ONE (10:05)
[2018-09-12 11:32] LABS: Glucose,Whole Blood 126 mg/dL (75-99)
[2018-09-12] MEDS: traMADol 50 MG TAB PO PRN ×2 (11:58→21:18)
--- NOTE | 2018-09-12 13:54 | IR ---
EXAMINATION TYPE: IR cvc insert >=5 years DATE OF EXAM: 09/12/2018 COMPARISON: NONE CLINICAL HISTORY: Infection Needs long-term intravenous access for antibiotics. PROCEDURE: After informed consent, the skin overlying the right basilic vein was localized with ultrasound and n oted to be compressible and patent. An ultrasound image was obtained and submitted on the patient's chart. The overlying skin was prepped and draped and Lidocaine was used for local anesthesia. A ski n debra was made with a scalpel. Access was gained to the vein under ultrasound guidance with a 21 ga uge needle and a 0.018 inch wire was advanced. Access site was dilated with Peel-Away sheath and cat heter tailored to the appropriate length and advanced such that the distal tip is at the cavoatrial j unction. Spot image was obtained verifying placement. Catheter was fixed to the skin and a sterile dressing was placed following hemostasis. Catheter was aspirated and flushed with saline. Patient w as discharged in stable condition without complication. Maximal barrier technique is utilized. Ultra sound image is documented on the chart. Ultrasound used with sterile technique. Fluoro time and fluoroscopic images submitted to document procedure: 75 intraoperative C-arm images, fluoroscopy time 0.8 minutes IMPRESSION: STATUS POST ULTRASOUND AND FLUOROSCOPIC GUIDED PICC LINE PLACEMENT, READY FOR USE. THIS PROCEDURE WAS PERFORMED BY THE UNDERSIGNED.
--- NOTE | 2018-09-12 17:01 | XR ---
EXAMINATION TYPE: XR chest 2V DATE OF EXAM: 09/12/2018 COMPARISON: 09/06/2018 INDICATION: Infiltrates TECHNIQUE: Frontal and lateral views of the chest are obtained. FINDINGS: The heart size is normal. The pulmonary vasculature is upper limits of normal.. Some mild infiltrates at the right base. Lungs are otherwise clear.. There is small posterior pleura l effusion on the lateral view. IMPRESSION: 1. Developing right lower lobe infiltrate. There is small posterior pleural effusion. Correlate for a telectasis or pneumonia. Atypical pulmonary edema could be considered. Follow-up chest studies are re commended.
[2018-09-12 17:06] LABS: Glucose,Whole Blood 268 mg/dL (75-99)
[2018-09-12] MEDS: INSULIN DETEMIR 100 UNIT/ML 10 ML VIAL SQ SCH (21:18)
[2018-09-12] MEDS: clonazePAM 0.5 MG TAB PO PRN (21:18)
[2018-09-12 21:20] LABS: Glucose,Whole Blood 177 mg/dL (75-99)
[2018-09-12] MEDS ORDERED: IPRATROPIUM-ALBUTEROL 3 ML NEB INHALATION PRN (22:10)
--- NOTE | 2018-09-12 22:18 | P.PN ---
Subjective Progress Note Date: 09/12/18 Progress note being dictated for Dr. Young Interval history: This is a 47-year-old is admitted for possible pneumonia although found to have left foot infection patient was started on vancomycin and infectious disease was consulted patient is being treated for severe sepsis secondary to foot infection most probably may need anaerobic and gram-negative coverage, will let infectious disease will decide about the antibiotics patient had infected left foot with foul-smelling discharge. 09/09/2018 Patient is presently on meropenem and vancomycin won't cultures are pending Constitutional: Denied any fatigue denied any fever. Cardio vascular: denied any chest pain, palpitations Gastrointestinal denied any nausea vomiting Pulmonary: Denied any shortness of breath cough Neurologic denied any new focal deficits All inpatient medications were reviewed and appropriate changes in these medications as dictated in the interval history and assessment and plan. 09/10/2018 yesterday he underwent a right foot second toe amputation with vascular surgery, Dr. Zhang. Tolerated procedure well. Pain medication lasting only about 4 hours, frequency increased. Maintained on IV antibiotics. T-max 99.4. Original dressing changed this morning by surgery. 09/11/2017 no overnight events.afebrile. Pain controlled. Blood sugars uncontrolled. Cultures /sensitivities finalized. PICC line ordered. Denies chest pain, palpitations or increasing shortness of breath. Creatinine still the trending up, 1.17. Maintaining O2 sats of 93% on room air. 09/12/2018 PICC line placed, director of social services securing ECF. Creatinine worsening on Invanz. Good diet intake, consuming 100%. Blood sugars better controlled. Denies chest pain, palpitations or increasing shortness of breath. 91% on room air. Chest x-ray reporting developing right lower lobe infiltrate, possible atelectasis versus pneumonia. Afebrile. Denies chills. Occasional congested nonproductive cough. Denies chest pain, palpitations or increasing shortness of breath. Objective - Vital Signs Vital signs: Vital Signs Temp 98.6 F 09/12/18 14:01 Pulse 101 H 09/12/18 16:24 Resp 16 09/12/18 16:24 BP 159/75 09/12/18 14:01 Pulse Ox 91 L 09/12/18 14:01 Intake & Output 09/12/18 09/12/18 09/13/18 06:59 18:59 06:59 Intake Total 600 Balance 600 Weight 127 kg Intake: Oral 600 Other: # Voids 4 2 # Bowel Movements 0 1 - Exam GENERAL: The patient is lying in bed, alert and oriented x3, no acute distress. HEENT: Pupils are round and equally reacting to light. EOMI. No scleral icterus. Oral mucosa moist CARDIOVASCULAR: S1 and S2 present. No murmurs, rubs, or gallops. PULMONARY: Chest is clear to auscultation, congested,mild expiratory wheezing ABDOMEN: Soft, nontender, nondistended, normoactive bowel sounds. No palpable organomegaly. MUSCULOSKELETAL: No joint swelling or deformity. EXTREMITIES: No cyanosis, clubbing, or pedal edema. NEUROLOGICAL: Gross neurological examination did not reveal any focal deficits. SKIN: right foot dressing clean dry and intact - Labs CBC & Chem 7: 09/12/18 08:03 09/12/18 08:03 Labs: Abnormal Lab Results - Last 24 Hours (Table) 09/12/18 09/12/18 09/12/18 Range/Units 07:04 08:03 08:03 RBC 3.23 L (4.30-5.90) m/uL Hgb 8.5 L (13.0-17.5) gm/dL Hct 27.1 L (39.0-53.0) % Chloride 110 H (98-107) mmol/L Creatinine 1.29 H (0.66-1.25) mg/dL Glucose 134 H (74-99) mg/dL POC Glucose (mg/dL) 161 H (75-99) mg/dL 09/12/18 09/12/18 09/12/18 Range/Units 11:26 16:46 21:16 RBC (4.30-5.90) m/uL Hgb (13.0-17.5) gm/dL Hct (39.0-53.0) % Chloride (98-107) mmol/L Creatinine (0.66-1.25) mg/dL Glucose (74-99) mg/dL POC Glucose (mg/dL) 126 H 268 H 177 H (75-99) mg/dL Microbiology - Last 24 Hours (Table) 09/06/18 22:19 Blood Culture - Preliminary Blood No Growth after 120 hours Assessment and Plan Assessment: Abscess secondary to right diabetic foot infection. 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 Wound Cultures reporting strep agalactiae, Group B Acute tracheobronchitis in a patient with chronic asthma. Lactic acidosis secondary to sepsis improved Dehydration proved Type 2diabetes mellitus: Uncontrolled blood sugars due to noncompliance GERD Essential hypertension History of sleep apnea not on BiPAP/CPAP History of chronic back pain and neck pain with spinal stenosis and History of degenerative joint disease Scoliosis History of chronic diarrhea and constipation History of schizophrenia and depression Atelectasis Status post PICC line placement Plan: Continue current medication regime ,monitoring and symptomatic treatment. PICC line placed. Maintain IV antibiotics. Aggressive pulmonary toileting. Close monitoring of blood sugars. Close monitoring of renal function with repeat labs ordered for a.m. discussing with infectious disease antibiotic in regards to worsening renal function. Symbicort added to med regime, given patient's chronic asthma. Discharge planning in progress for tomorrow to subacute rehab pending authorization/accepting ECF. The impression and plan of care has been dictated as directed. : I performed a history and examination of this patient, discussed the same with the dictator. I agree with the dictator's note ,documented as a scribe. Any additional findings or plans will be noted.
--- NOTE | 2018-09-12 23:40 | P.PN ---
Subjective Progress Note Date: 09/12/18 47-year-old male with quite a complex past medical history especially with the psychosocial difficulties resulted with his schizophrenia and depression. Relives his sister has kicked him out of the home and he is now staying at the prison but apparently because he has some medical illness that he cannot stay at the prison and cousin came to the emergency center. He has many troubles include diabetes not as type II poorly controlled with a high hemoglobin A1c, history of asthma sleep apnea seizures spinal stenosis and chronic pain. The patient relates that the right foot second toe has been abnormal and has gotten considerably worse. He states that he has been seen by a coke oven mason in the past, Dr. Cullen not sure when this was she did give him some nail care. It appears as been marked worsening since that point in time. He is not able to sense much pain to the toe, and is denying fevers chills or rigors or sweats. He does not feel well overall. His appetite however is been well he is eating without nausea or emesis and does have intermittent diarrhea but not currently a problem. Unable to recall specific trauma but as noted has been afraid to have further care to the toe 09/09/2018 patient will be going to the operating room for the amputation of the gangrenous second toe. He has no new complaints. Cultures are process in antibiotic therapy with vancomycin and ertapenem is being utilized for the gangrenous change of the foot and with diabetes concerns to polymicrobial infection. 09/12/2018 amputation is occurred, patient doing relatively well but has the extensive wound to the foot will require a course of intravenous antibiotic therapy that he is not able to do in the home setting. We'll make arrangements for extended care. PICC line has been requested and would likely plan on Invanz at this time. Based on cultures vancomycin discontinued. Objective - Vital Signs Vital signs: Vital Signs Temp 98.9 F 09/12/18 23:00 Pulse 92 09/12/18 23:00 Resp 20 09/12/18 23:00 BP 159/66 09/12/18 23:00 Pulse Ox 97 09/12/18 23:00 Intake & Output 09/12/18 09/12/18 09/13/18 06:59 18:59 06:59 Intake Total 600 Balance 600 Weight 127 kg Intake: Oral 600 Other: # Voids 4 2 # Bowel Movements 0 1 - Exam 47-year-old male with obesity seems comfortable at this time HEENT: Anicteric conjunctiva are pink and moist nasal mucosa grossly intact without significant lesions, there is no thrush. Dentition is poor Neck: The neck is supple without significant lymphadenopathy or thyromegaly. Lungs: Symmetrical bilateral air entry with expiratory wheezes that are scattered no ayala bronchial sounds with dullness or egophony obese, Heart: Regular rate and rhythm with an audible S1-S2, no S3 no S4. There is no significant murmur click or rub, PMI was nondisplaced. Abdomen: Positive bowel sounds soft and nontender without palpable masses or organomegaly. There was no guarding or rebound. Extremities: The upper extremities have excellent pulses they are symmetric, no significant petechiae or telangiectasia. No splinter hemorrhages were noted. Lower extremities reveal evidence of some chronic changes, right lower extremity has the significant change second toe which is grossly abnormal and deformed with open ulceration exposed bone and purulent drainage. There is erythema of the toe minimal erythema to the dorsum of the foot. Minimal swelling to the limb. No lymphadenopathy in the right inguinal region no other abnormal lymph nodes noted Neuro: Awake alert oriented to person place and time, no gross focal sensory motor deficits however does have decreased sensation to bilateral toes - Labs CBC & Chem 7: 09/12/18 08:03 09/12/18 08:03 Labs: Abnormal Lab Results - Last 24 Hours (Table) 09/12/18 09/12/18 09/12/18 Range/Units 07:04 08:03 08:03 RBC 3.23 L (4.30-5.90) m/uL Hgb 8.5 L (13.0-17.5) gm/dL Hct 27.1 L (39.0-53.0) % Chloride 110 H (98-107) mmol/L Creatinine 1.29 H (0.66-1.25) mg/dL Glucose 134 H (74-99) mg/dL POC Glucose (mg/dL) 161 H (75-99) mg/dL 09/12/18 09/12/18 09/12/18 Range/Units 11:26 16:46 21:16 RBC (4.30-5.90) m/uL Hgb (13.0-17.5) gm/dL Hct (39.0-53.0) % Chloride (98-107) mmol/L Creatinine (0.66-1.25) mg/dL Glucose (74-99) mg/dL POC Glucose (mg/dL) 126 H 268 H 177 H (75-99) mg/dL Microbiology - Last 24 Hours (Table) 09/06/18 22:19 Blood Culture - Preliminary Blood No Growth after 120 hours Laboratory Results WBC 5.0 k/uL (3.8-10.6) 09/12/18 08:03 RBC 3.23 m/uL (4.30-5.90) L 09/12/18 08:03 Hgb 8.5 gm/dL (13.0-17.5) L 09/12/18 08:03 Hct 27.1 % (39.0-53.0) L 09/12/18 08:03 MCV 83.9 fL (80.0-100.0) 09/12/18 08:03 MCH 26.5 pg (25.0-35.0) 09/12/18 08:03 MCHC 31.5 g/dL (31.0-37.0) 09/12/18 08:03 RDW 15.1 % (11.5-15.5) 09/12/18 08:03 Plt Count 231 k/uL (150-450) 09/12/18 08:03 Neutrophils % 67 % 09/12/18 08:03 Lymphocytes % 21 % 09/12/18 08:03 Monocytes % 5 % 09/12/18 08:03 Eosinophils % 4 % 09/12/18 08:03 Basophils % 1 % 09/12/18 08:03 Neutrophils # 3.4 k/uL (1.3-7.7) 09/12/18 08:03 Lymphocytes # 1.1 k/uL (1.0-4.8) 09/12/18 08:03 Monocytes # 0.3 k/uL (0-1.0) 09/12/18 08:03 Eosinophils # 0.2 k/uL (0-0.7) 09/12/18 08:03 Basophils # 0.0 k/uL (0-0.2) 09/12/18 08:03 Hypochromasia Slight 09/12/18 08:03 Poikilocytosis Slight 09/12/18 08:03 PT 10.8 sec (9.0-12.0) 09/06/18 22:19 INR 1.0 (<1.2) 09/06/18 22:19 APTT 27.6 sec (22.0-30.0) 09/06/18 22:19 Sodium 140 mmol/L (137-145) 09/12/18 08:03 Potassium 5.0 mmol/L (3.5-5.1) 09/12/18 08:03 Chloride 110 mmol/L (98-107) H 09/12/18 08:03 Carbon Dioxide 26 mmol/L (22-30) 09/12/18 08:03 Anion Gap 4 mmol/L 09/12/18 08:03 BUN 16 mg/dL (9-20) 09/12/18 08:03 Creatinine 1.29 mg/dL (0.66-1.25) H 09/12/18 08:03 Est GFR (CKD-EPI)AfAm 75 (>60 ml/min/1.73 sqM) 09/12/18 08:03 Est GFR (CKD-EPI)NonAf 65 (>60 ml/min/1.73 sqM) 09/12/18 08:03 Glucose 134 mg/dL (74-99) H 09/12/18 08:03 POC Glucose (mg/dL) 177 mg/dL (75-99) H 09/12/18 21:16 POC Glu Hand Inspector ID [place] 09/12/18 21:[address] Glu mg/dL 171 09/06/18 22:19 Hemoglobin A1c 7.6 % (4.0-6.0) H 09/06/18 22:19 Lactic Ac Sepsis Rflx Y 09/06/18 23:15 Plasma Lactic Acid Chris 1.8 mmol/L (0.7-2.0) 09/07/18 02:53 Calcium 9.1 mg/dL (8.4-10.2) 09/12/18 08:03 Total Bilirubin 0.8 mg/dL (0.2-1.3) 09/06/18 22:19 AST 23 U/L (17-59) 09/06/18 22:19 ALT 33 U/L (21-72) 09/06/18 22:19 Alkaline Phosphatase 62 U/L (38-126) 09/06/18 22:19 Troponin I <0.012 ng/mL (0.000-0.034) 09/07/18 04:05 Total Protein 5.2 g/dL (6.3-8.2) L 09/06/18 22:19 Albumin 2.5 g/dL (3.5-5.0) L 09/06/18 22:19 Urine Color Light Yellow 09/06/18 23:40 Urine Appearance Clear (Clear) 09/06/18 23:40 Urine pH 5.5 (5.0-8.0) 09/06/18 23:40 Ur Specific [place] 1.009 (1.001-1.035) 09/06/18 23:40 Urine Protein 2+ (Negative) H 09/06/18 23:40 Urine Glucose (UA) 4+ (Negative) H 09/06/18 23:40 Urine Ketones Negative (Negative) 09/06/18 23:40 Urine Blood Large (Negative) H 09/06/18 23:40 Urine Nitrite Negative (Negative) 09/06/18 23:40 Urine Bilirubin Negative (Negative) 09/06/18 23:40 Urine Urobilinogen <2.0 mg/dL (<2.0) 09/06/18 23:40 Ur Leukocyte Esterase Negative (Negative) 09/06/18 23:40 Urine RBC 6 /hpf (0-5) H 09/06/18 23:40 Urine WBC 1 /hpf (0-5) 09/06/18 23:40 Vancomycin Trough 14.3 ug/mL 09/12/18 08:03 Influenza Type A RNA Not Detected (Not Detectd) 09/06/18 23:40 Influenza Type B (PCR) Not Detected (Not Detectd) 09/06/18 23:40 Microbiology 09/06/18 22:19 Blood Blood Culture - Preliminary No Growth after 120 hours 09/09/18 14:00 Toe - Right Second Gram Stain - Final 09/09/18 14:00 Toe - Right Second Wound Culture - Final Strep agalactiae - (group b) 09/09/18 14:00 Toe - Right Second Anaerobic Culture - Preliminary 09/06/18 23:40 Urine,Voided Urine Culture - Final Assessment and Plan (1) Diabetic ulcer of foot associated with diabetes mellitus due to underlying condition, with necrosis of bone Narrative/Plan: 47-year-old male with history of underlying schizophrenia and depression who has significant psychosocial challenges, he does not monitor his blood glucose. Hemoglobin A1c is elevated at 7.6 blood sugars have been very elevated since coming to hospital. Is evidence of the gangrenous changes to the right foot second toe on the basis of uncontrolled diabetes. Patient seen by vascular surgery with plans for toe amputation possible ray amputation tomorrow. Antibiotic therapy has been started with vancomycin given his ALLERGIES, will add Invanz also at this point in time for coverage of gram negatives as well as anaerobic bacteria, and a diabetic foot ulcer. Local wound care will be a Adaptic dressing to cover the site. Therapy will be utilized to the left foot there is the eschar present over the medial metatarsal head. There is cellulitis on the right foot for which antibiotic therapy should be helpful. Social work and diabetes team input required. 09/09/2018 patient operative room today for the amputation of the right foot second toe gangrene. The outcome of surgery will determine the next set of plans as well cultures to help with the possibility of outpatient aquatic therapy whether it is oral IV. The patient is homeless and has many issues and outpatient IV antibiotic therapy may not be possible, however possible rehab may allow this type of treatment. We'll follow after amputation. Blood sugars are improving. 09/12/2018 patient has some improvement. He has had PICC line placed and arrangements are being made for transfer to extended care to receive his 42 days of intravenous antibiotic therapy for his complex diabetic foot infection with overall attempt to salvage the foot and lower extremity. Local wound care of the silver dressing is applied at this point in time in the ulceration is improving. Await placement. Of note the creatinine has elevated mildly, vancomycin therapy has been discontinued as a likely etiology given his multiple underlying medical condition. Current Visit: Yes Status: Acute Code(s): E08.621 - DIABETES MELLITUS DUE TO UNDERLYING CONDITION W FOOT ULCER; L97.504 - NON-PRS CHRONIC ULCER OTH PRT UNSP FOOT W NECROSIS OF BONE SNOMED Code(s): 516729440 (2) DM (diabetes mellitus), type 2, uncontrolled w/neurologic complication Current Visit: Yes Status: Acute Code(s): E11.49 - TYPE 2 DIABETES W OTH DIABETIC NEUROLOGICAL COMPLICATION; E11.65 - TYPE 2 DIABETES MELLITUS WITH HYPERGLYCEMIA SNOMED Code(s): 071832549 (3) Gangrene of toe of right foot Current Visit: Yes Status: Acute Code(s): I96 - GANGRENE, NOT ELSEWHERE CLASSIFIED SNOMED Code(s): 11786320115108258
[2018-09-13] MEDS: LACTATED RINGERS 1,000 ML IV SCH (06:11)
[2018-09-13 07:21] LABS: Glucose,Whole Blood 188 mg/dL (75-99)
[2018-09-13] MEDS: SYMBICORT 160-4.5 MCG INHALER INHALATION SCH ×3 (07:41→19:56)
[2018-09-13] MEDS: IPRATROPIUM-ALBUTEROL 3 ML NEB INHALATION SCH ×4 (08:08→19:56)
[2018-09-13 08:30] LABS: Basophils % (A) 1 %; Eosinophils # (A) 0.2 k/uL (0-0.7); Eosinophils % (A) 4 %; HGB 8.4 gm/dL (13.0-17.5); Hypochromasia Slight; Lymphocytes # (A) 1.2 k/uL (1.0-4.8); Lymphocytes % (A) 23 %; MCHC 33.6 g/dL (31.0-37.0); MCV 83.2 fL (80.0-100.0); Mean Platelet Volume 6.9; Monocytes # (A) 0.2 k/uL (0-1.0); Monocytes % (A) 5 %; Neutrophils # (A) 3.4 k/uL (1.3-7.7); Neutrophils % (A) 67 %; Platelet Count 221 k/uL (150-450); Poikilocytosis Slight; RDW 15.5 % (11.5-15.5); WBC 5.2 k/uL (3.8-10.6)
[2018-09-13 08:47] LABS: Potassium 4.7 mmol/L (3.5-5.1)
[2018-09-13] MEDS: INSULIN ASPART 100 UNIT/ML 1 ML 10 ML VIAL SQ SCH ×6 (09:14→17:38)
[2018-09-13] MEDS: NICOTINE 14MG/24HR PATCH TRANSDERM SCH (09:14)
[2018-09-13] MEDS: risperiDONE 1 MG TAB PO SCH ×2 (09:15→21:22)
[2018-09-13] MEDS: PANTOPRAZOLE 40 MG TABLET PO SCH (09:15)
[2018-09-13] MEDS: ERTAPENEM 1 GM in SODIUM CHLORIDE 0.9% 50 ML IVPB SCH (09:15)
[2018-09-13] MEDS: POTASSIUM CHLORIDE ER 10 MEQ TAB.ER.PRT PO SCH ×2 (09:15→21:22)
[2018-09-13] MEDS: ATORVASTATIN 10 MG TAB PO SCH (09:15)
[2018-09-13] MEDS: CHOLECALCIFEROL 1,000 UNIT TAB PO SCH (09:15)
[2018-09-13] MEDS: amLODIPine 5 MG TAB PO SCH (09:15)
[2018-09-13] MEDS: SERTRALINE 50 MG TAB PO SCH ×2 (09:15→21:21)
[2018-09-13] MEDS: DIVALPROEX 500 MG TABLET.DR PO SCH ×2 (09:15→21:21)
[2018-09-13 12:26] LABS: Glucose,Whole Blood 181 mg/dL (75-99)
[2018-09-13] MEDS ORDERED: SODIUM CHLORIDE 0.9% 1,000 ML IV SCH (14:00)
--- NOTE | 2018-09-13 15:47 | P.PN ---
Subjective 47-year-old is admitted for possible pneumonia although found to have left foot infection patient was started on vancomycin and infectious disease was consulted patient is being treated for severe sepsis secondary to foot infection most probably may need anaerobic and gram-negative coverage, will let infectious disease will decide about the antibiotics patient had infected left foot with foul-smelling discharge. 09/09/2018 Patient is presently on meropenem and vancomycin won't cultures are pending All inpatient medications were reviewed and appropriate changes in these medications as dictated in the interval history and assessment and plan. 09/10/2018 yesterday he underwent a right foot second toe amputation with vascular surgery, Dr. Zhang. Tolerated procedure well. Pain medication lasting only about 4 hours, frequency increased. Maintained on IV antibiotics. T-max 99.4. Original dressing changed this morning by surgery. 09/11/2017 no overnight events.afebrile. Pain controlled. Blood sugars uncontrolled. Cultures /sensitivities finalized. PICC line ordered. Denies chest pain, palpitations or increasing shortness of breath. Creatinine still the trending up, 1.17. Maintaining O2 sats of 93% on room air. 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 Creatinine worsening on Invanz. Good diet intake, consuming 100%. Blood sugars better controlled. Denies chest pain, palpitations or increasing shortness of breath. 91% on room air. Chest x-ray reporting developing right lower lobe infiltrate, possible atelectasis versus pneumonia. Afebrile. Denies chills. Occasional congested nonproductive cough. Denies chest pain, palpitations or increasing shortness of breath. 09/13/2018 No overnight events. He awaiting disposition to subacute rehabilitation. Patient will be discharged on IV antibiotics. Constitutional: Denied any fatigue denied any fever. Cardio vascular: denied any chest pain, palpitations Gastrointestinal denied any nausea vomiting Pulmonary: Denied any shortness of breath cough Neurologic denied any new focal deficits All inpatient medications were reviewed and appropriate changes in these medications as dictated in the interval history and assessment and plan. Objective - Vital Signs Vital signs: Vital Signs Temp 97.9 F 09/13/18 07:13 Pulse 80 09/13/18 12:40 Resp 18 09/13/18 07:13 BP 183/85 09/13/18 07:13 Pulse Ox 93 L 09/13/18 08:10 Intake & Output 09/12/18 09/13/18 09/13/18 18:59 06:59 18:59 Intake Total 600 600 Balance 600 600 Weight 127 kg Intake: Oral 600 600 Other: Voiding Method Toilet # Voids 2 2 2 # Bowel Movements 1 - Exam GENERAL: The patient is lying in bed, alert and oriented x3, no acute distress. HEENT: Pupils are round and equally reacting to light. EOMI. No scleral icterus. Oral mucosa moist CARDIOVASCULAR: S1 and S2 present. No murmurs, rubs, or gallops. PULMONARY: Chest is clear to auscultation, congested,mild expiratory wheezing ABDOMEN: Soft, nontender, nondistended, normoactive bowel sounds. No palpable organomegaly. MUSCULOSKELETAL: No joint swelling or deformity. EXTREMITIES: No cyanosis, clubbing, or pedal edema. NEUROLOGICAL: Gross neurological examination did not reveal any focal deficits. SKIN: right foot dressing clean dry and intact - Labs CBC & Chem 7: 09/13/18 07:56 09/13/18 07:56 Labs: Abnormal Lab Results - Last 24 Hours (Table) 09/12/18 09/12/18 09/13/18 Range/Units 16:46 21:16 07:16 RBC (4.30-5.90) m/uL Hgb (13.0-17.5) gm/dL Hct (39.0-53.0) % Chloride (98-107) mmol/L Glucose (74-99) mg/dL POC Glucose (mg/dL) 268 H 177 H 188 H (75-99) mg/dL 09/13/18 09/13/18 09/13/18 Range/Units 07:56 07:56 12:13 RBC 3.00 L (4.30-5.90) m/uL Hgb 8.4 L (13.0-17.5) gm/dL Hct 25.0 L (39.0-53.0) % Chloride 109 H (98-107) mmol/L Glucose 155 H (74-99) mg/dL POC Glucose (mg/dL) 181 H (75-99) mg/dL Microbiology - Last 24 Hours (Table) 09/06/18 22:19 Blood Culture - Final Blood No Growth after 144 hours Assessment and Plan Plan: Assessment and Plan Assessment: Abscess secondary to right diabetic foot infection. 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 Wound Cultures reporting strep agalactiae, Group B. Patient will discharge on IV antibiotics as mentioned above Acute tracheobronchitis in a patient with chronic asthma. Lactic acidosis secondary to sepsis improved Dehydration proved Type 2diabetes mellitus: Uncontrolled blood sugars due to noncompliance GERD Essential hypertension History of sleep apnea not on BiPAP/CPAP History of chronic back pain and neck pain with spinal stenosis and History of degenerative joint disease Scoliosis History of schizophrenia and depression
[2018-09-13 16:52] LABS: Glucose,Whole Blood 179 mg/dL (75-99)
[2018-09-13] MEDS: clonazePAM 0.5 MG TAB PO PRN (17:12)
[2018-09-13] MEDS: traMADol 50 MG TAB PO PRN (17:12)
[2018-09-13 20:37] LABS: Glucose,Whole Blood 216 mg/dL (75-99)
[2018-09-13] MEDS: LORATADINE 10 MG TAB PO SCH (21:22)
[2018-09-13] MEDS: INSULIN DETEMIR 100 UNIT/ML 10 ML VIAL SQ SCH (21:22)
[2018-09-14] MEDS: LACTATED RINGERS 1,000 ML IV SCH (06:11)
[2018-09-14 07:26] LABS: Glucose,Whole Blood 140 mg/dL (75-99)
[2018-09-14] MEDS: IPRATROPIUM-ALBUTEROL 3 ML NEB INHALATION SCH ×4 (07:41→20:53)
[2018-09-14] MEDS: SYMBICORT 160-4.5 MCG INHALER INHALATION SCH ×2 (07:41→19:09)
[2018-09-14] MEDS: ERTAPENEM 1 GM in SODIUM CHLORIDE 0.9% 50 ML IVPB SCH (08:07)
[2018-09-14] MEDS: INSULIN ASPART 100 UNIT/ML 1 ML 10 ML VIAL SQ SCH ×6 (08:10→18:13)
[2018-09-14] MEDS: ATORVASTATIN 10 MG TAB PO SCH (08:11)
[2018-09-14] MEDS: risperiDONE 1 MG TAB PO SCH ×2 (08:11→20:47)
[2018-09-14] MEDS: POTASSIUM CHLORIDE ER 10 MEQ TAB.ER.PRT PO SCH ×2 (08:11→20:47)
[2018-09-14] MEDS: PANTOPRAZOLE 40 MG TABLET PO SCH (08:11)
[2018-09-14] MEDS: amLODIPine 5 MG TAB PO SCH (08:11)
[2018-09-14] MEDS: DIVALPROEX 500 MG TABLET.DR PO SCH ×2 (08:11→20:47)
[2018-09-14] MEDS: SERTRALINE 50 MG TAB PO SCH ×2 (08:11→20:47)
[2018-09-14] MEDS: CHOLECALCIFEROL 1,000 UNIT TAB PO SCH (08:11)
[2018-09-14] MEDS: NICOTINE 14MG/24HR PATCH TRANSDERM SCH (08:12)
[2018-09-14 09:09] LABS: Calcium 9.3 mg/dL (8.4-10.2)
[2018-09-14 12:14] LABS: Glucose,Whole Blood 175 mg/dL (75-99)
--- NOTE | 2018-09-14 13:33 | P.PN ---
Subjective 47-year-old is admitted for possible pneumonia although found to have left foot infection patient was started on vancomycin and infectious disease was consulted patient is being treated for severe sepsis secondary to foot infection most probably may need anaerobic and gram-negative coverage, will let infectious disease will decide about the antibiotics patient had infected left foot with foul-smelling discharge. 09/09/2018 Patient is presently on meropenem and vancomycin won't cultures are pending All inpatient medications were reviewed and appropriate changes in these medications as dictated in the interval history and assessment and plan. 09/10/2018 yesterday he underwent a right foot second toe amputation with vascular surgery, Dr. Zhang. Tolerated procedure well. Pain medication lasting only about 4 hours, frequency increased. Maintained on IV antibiotics. T-max 99.4. Original dressing changed this morning by surgery. 09/11/2017 no overnight events.afebrile. Pain controlled. Blood sugars uncontrolled. Cultures /sensitivities finalized. PICC line ordered. Denies chest pain, palpitations or increasing shortness of breath. Creatinine still the trending up, 1.17. Maintaining O2 sats of 93% on room air. 09/12/2018 PICC line placed, social professionals securing ECF. Creatinine worsening on Invanz. Good diet intake, consuming 100%. Blood sugars better controlled. Denies chest pain, palpitations or increasing shortness of breath. 91% on room air. Chest x-ray reporting developing right lower lobe infiltrate, possible atelectasis versus pneumonia. Afebrile. Denies chills. Occasional congested nonproductive cough. Denies chest pain, palpitations or increasing shortness of breath. 09/13/2018 No overnight events. He awaiting disposition to subacute rehabilitation. Patient will be discharged on IV antibiotics. 09/14/2018 Patient is doing clinically well eating well no significant overnight events. Constitutional: Denied any fatigue denied any fever. Cardio vascular: denied any chest pain, palpitations Gastrointestinal denied any nausea vomiting Pulmonary: Denied any shortness of breath cough Neurologic denied any new focal deficits All inpatient medications were reviewed and appropriate changes in these medications as dictated in the interval history and assessment and plan. Objective - Vital Signs Vital signs: Vital Signs Temp 98.4 F 09/14/18 06:15 Pulse 88 09/14/18 07:56 Resp 18 09/14/18 06:15 BP 163/81 09/14/18 06:15 Pulse Ox 92 L 09/14/18 06:15 Intake & Output 09/13/18 09/14/18 09/14/18 18:59 06:59 18:59 Intake Total 800 Balance 800 Intake: Oral 800 Other: Voiding Method Toilet # Voids 2 1 - Exam GENERAL: The patient is lying in bed, alert and oriented x3, no acute distress. HEENT: Pupils are round and equally reacting to light. EOMI. No scleral icterus. Oral mucosa moist CARDIOVASCULAR: S1 and S2 present. No murmurs, rubs, or gallops. PULMONARY: Chest is clear to auscultation, congested,mild expiratory wheezing ABDOMEN: Soft, nontender, nondistended, normoactive bowel sounds. No palpable organomegaly. MUSCULOSKELETAL: No joint swelling or deformity. EXTREMITIES: No cyanosis, clubbing, or pedal edema. NEUROLOGICAL: Gross neurological examination did not reveal any focal deficits. SKIN: right foot dressing clean dry and intact - Labs CBC & Chem 7: 09/13/18 07:56 09/14/18 08:35 Labs: Abnormal Lab Results - Last 24 Hours (Table) 09/13/18 09/13/18 09/14/18 Range/Units 16:46 20:33 07:21 Chloride (98-107) mmol/L Glucose (74-99) mg/dL POC Glucose (mg/dL) 179 H 216 H 140 H (75-99) mg/dL 09/14/18 09/14/18 Range/Units 08:35 12:10 Chloride 108 H (98-107) mmol/L Glucose 126 H (74-99) mg/dL POC Glucose (mg/dL) 175 H (75-99) mg/dL Microbiology - Last 24 Hours (Table) 09/09/18 14:00 Anaerobic Culture - Final Toe - Right Second Assessment and Plan Plan: Assessment and Plan Assessment: Abscess secondary to right diabetic foot infection. 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 Wound Cultures reporting strep agalactiae, Group B. Patient will discharge on IV antibiotics as mentioned above Acute tracheobronchitis in a patient with chronic asthma. Lactic acidosis secondary to sepsis improved Dehydration proved Type 2diabetes mellitus: Uncontrolled blood sugars due to noncompliance GERD Essential hypertension History of sleep apnea not on BiPAP/CPAP History of chronic back pain and neck pain with spinal stenosis and History of degenerative joint disease Scoliosis History of schizophrenia and depression
[2018-09-14 17:39] LABS: Glucose,Whole Blood 171 mg/dL (75-99)
[2018-09-14] MEDS: ALBUTEROL NEBULIZED 2.5 MG/3 ML INHALATION PRN (19:08)
[2018-09-14] MEDS ORDERED: NICOTINE 14MG/24HR PATCH TRANSDERM STA (20:17)
[2018-09-14] MEDS: INSULIN DETEMIR 100 UNIT/ML 10 ML VIAL SQ SCH (20:47)
[2018-09-14] MEDS: LORATADINE 10 MG TAB PO SCH (20:47)
[2018-09-14] MEDS: clonazePAM 0.5 MG TAB PO PRN (20:52)
[2018-09-14 20:56] LABS: Glucose,Whole Blood 186 mg/dL (75-99)
[2018-09-15 06:39] VITALS: BP 171/83; RESP 18; TEMP 99.1
[2018-09-15 07:14] LABS: Glucose,Whole Blood 147 mg/dL (75-99)
[2018-09-15] MEDS: ERTAPENEM 1 GM in SODIUM CHLORIDE 0.9% 50 ML IVPB SCH (07:48)
[2018-09-15] MEDS: SERTRALINE 50 MG TAB PO SCH (07:49)
[2018-09-15] MEDS: amLODIPine 5 MG TAB PO SCH (07:49)
[2018-09-15] MEDS: clonazePAM 0.5 MG TAB PO PRN (07:49)
[2018-09-15] MEDS: PANTOPRAZOLE 40 MG TABLET PO SCH (07:49)
[2018-09-15] MEDS: ATORVASTATIN 10 MG TAB PO SCH (07:49)
[2018-09-15] MEDS: POTASSIUM CHLORIDE ER 10 MEQ TAB.ER.PRT PO SCH (07:49)
[2018-09-15] MEDS: DIVALPROEX 500 MG TABLET.DR PO SCH (07:49)
[2018-09-15] MEDS: risperiDONE 1 MG TAB PO SCH (07:49)
[2018-09-15] MEDS: CHOLECALCIFEROL 1,000 UNIT TAB PO SCH (07:49)
[2018-09-15] MEDS: NICOTINE 14MG/24HR PATCH TRANSDERM SCH (07:50)
[2018-09-15] MEDS: INSULIN ASPART 100 UNIT/ML 1 ML 10 ML VIAL SQ SCH ×4 (07:50→13:27)
[2018-09-15] MEDS: LACTATED RINGERS 1,000 ML IV SCH (07:58)
[2018-09-15] MEDS: IPRATROPIUM-ALBUTEROL 3 ML NEB INHALATION SCH ×2 (09:05→12:16)
[2018-09-15] MEDS: SYMBICORT 160-4.5 MCG INHALER INHALATION SCH (09:06)
[2018-09-15 09:13] VITALS: PULSE 80
[2018-09-15 12:16] LABS: Glucose,Whole Blood 172 mg/dL (75-99)
--- NOTE | 2018-09-15 13:05 | P.DS ---
Providers Date of admission: 09/07/18 01:21 Expected date of discharge: 09/15/18 Attending physician: MD Dr. Hannah Martinez Consults: 09/07/18 01:15 Consult Physician Routine Consulting Provider: Nik Contreras Consult Reason/Comments: wound care Do you want consulting provider notified?: Yes, Notify in am 09/08/18 10:16 Consult Physician Urgent Consulting Provider: Alessandro Zhang Consult Reason/Comments: nacrotic toes Do you want consulting provider notified?: Yes Primary care physician: [facility] Hospital Course: Final DIagnoses: Abscess secondary to right diabetic foot infection. 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 Wound Cultures reporting strep agalactiae, Group B. Acute tracheobronchitis in a patient with chronic asthma. Lactic acidosis secondary to sepsis improved Dehydration proved Type 2diabetes mellitus, Hyperglycemia on admisssion due to noncompliance. GERD Essential hypertension History of sleep apnea not on BiPAP/CPAP History of chronic back pain and neck pain with spinal stenosis and History of degenerative joint disease Scoliosis History of schizophrenia and depression Hospital course:47-year-old is admitted for possible pneumonia although found to have left foot infection patient was started on vancomycin and infectious disease was consulted patient is being treated for severe sepsis secondary to foot infection most probably may need anaerobic and gram-negative coverage, will let infectious disease will decide about the antibiotics patient had infected left foot with foul-smelling discharge. Evaluated by both infectious disease, vascular surgery. Maintain on IV antibiotics as per ID. Underwent right foot second toe amputation with vascular surgeon, Dr. Zhang, tolerated procedure well.Wound Cultures reporting strep agalactiae, Group B. PICC line placed for IV antibiotics at discharge. Cleared by all consults for discharge. Exam GENERAL: alert and oriented x3, no acute distress. CARDIOVASCULAR: S1 and S2 present. No murmurs, rubs, or gallops. PULMONARY: Chest is clear to auscultation,Bilateral bases diminshed. Occ exp. Whheze. ABDOMEN: Soft, nontender, nondistended, normoactive bowel sounds. No palpable organomegaly. NEUROLOGICAL: Gross neurological examination did not reveal any focal deficits. SKIN: right foot dressing clean dry and intact The impression and plan of care has been dictated as directed. : I performed a history and examination of this patient, discussed the same with the dictator. I agree with the dictator's note ,documented as a scribe. Any additional findings or plans will be noted. Time taken: 35 minutes Patient Condition at Discharge: Stable Plan - Discharge Summary Discharge Rx Participant: No New Discharge Prescriptions: New Acetaminophen Tab [Tylenol] 650 mg PO Q6HR PRN tab PRN Reason: Mild Pain Or Fever > 100.5 Albuterol Nebulized [Ventolin Nebulized] 2.5 mg INHALATION RT-Q4H PRN nebu PRN Reason: Shortness Of Breath Budesonide-Formot 160-4.5 Mcg [Symbicort 160-4.5 Mcg Inhaler] 2 puff INHALATION RT-BID puff Insulin Aspart [NovoLOG (formulary)] 5 unit SQ AC-TID vial INSULIN LISPRO (HumaLOG) [humaLOG] 0 unit SQ ACHS #1 vial Ipratropium-Albuterol Nebulize [Duoneb 0.5 mg-3 mg/3 ml Soln] 3 ml INHALATION RT-QID ampul.neb Nicotine 14Mg/24Hr Patch [Habitrol] 1 patch TRANSDERM DAILY patch Continue Omeprazole 20 mg PO BID Insulin Glargine [Lantus] 30 unit SQ HS Atorvastatin [Lipitor] 10 mg PO DAILY Sennosides [Senna] 8.6 mg PO HS PRN PRN Reason: Constipation risperiDONE [RisperDAL] 3 mg PO BID amLODIPine [Norvasc] 5 mg PO DAILY Sertraline [Zoloft] 50 mg PO BID Cholecalciferol [Vitamin D3] 5,000 unit PO DAILY Docusate [Colace] 100 mg PO DAILY PRN PRN Reason: Constipation Loratadine [Claritin] 10 mg PO DAILY Divalproex Sodium [Depakote] 500 mg PO BID clonazePAM [KlonoPIN] 0.5 mg PO TID #9 tab Discontinued Albuterol Inhaler [Ventolin Hfa Inhaler] 2 puff INHALATION RT-Q4H PRN PRN Reason: Shortness Of Breath Lisinopril [Zestril] 20 mg PO DAILY Doxycycline [Vibramycin] 100 mg PO BID INSULIN LISPRO (humaLOG) [humaLOG] See Protocol SQ AC-TID Paliperidone IM [Invega Sustenna] 156 mg IM ONCE Discharge Medication List Omeprazole 20 mg PO BID 11/30/17 [History] Insulin Glargine [Lantus] 30 unit SQ HS 04/08/18 [History] Atorvastatin [Lipitor] 10 mg PO DAILY 07/11/18 [History] Sennosides [Senna] 8.6 mg PO HS PRN 07/20/18 [History] Sertraline [Zoloft] 50 mg PO BID 08/27/18 [History] amLODIPine [Norvasc] 5 mg PO DAILY 08/27/18 [History] risperiDONE [RisperDAL] 3 mg PO BID 08/27/18 [History] Cholecalciferol [Vitamin D3] 5,000 unit PO DAILY 09/06/18 [History] Divalproex Sodium [Depakote] 500 mg PO BID 09/06/18 [History] Docusate [Colace] 100 mg PO DAILY PRN 09/06/18 [History] Loratadine [Claritin] 10 mg PO DAILY 09/06/18 [History] Acetaminophen Tab [Tylenol] 650 mg PO Q6HR PRN tab 09/15/18 [Rx] Albuterol Nebulized [Ventolin Nebulized] 2.5 mg INHALATION RT-Q4H PRN nebu [Rx] Budesonide-Formot 160-4.5 Mcg [Symbicort 160-4.5 Mcg Inhaler] 2 puff INHALATION RT-BID puff 09/15/18 [Rx] INSULIN LISPRO (HumaLOG) [humaLOG] 0 unit SQ ACHS #1 vial 09/15/18 [Rx] Insulin Aspart [NovoLOG (formulary)] 5 unit SQ AC-TID vial 09/15/18 [Rx] Ipratropium-Albuterol Nebulize [Duoneb 0.5 mg-3 mg/3 ml Soln] 3 ml INHALATION RT -QID ampul.neb 09/15/18 [Rx] Nicotine 14Mg/24Hr Patch [Habitrol] 1 patch TRANSDERM DAILY patch 09/15/18 [Rx] clonazePAM [KlonoPIN] 0.5 mg PO TID #9 tab 09/15/18 [Rx] Follow up Appointment(s)/Referral(s): Yoseph Chavez MD [REFERRING] - 3 Days (at ECF ) Nik Contreras MD [STAFF PHYSICIAN] - 1 Week [facility] [Primary Care Provider] - 1 Week (after dc from subacute rehab) Alessandro Zhang MD [STAFF PHYSICIAN] - 1 Week Activity/Diet/Wound Care/Special Instructions: Antibx as per ID wound care as per ID/Vascular Diet: COnsist Carb CBC,BMP in 3 days Activity: as tolerated
== END 2018-09-15 14:58 | DRG 854 ==
LOC: EC 21:52 → 4MS4W 09-07 01:21
PROVIDERS: ADMIT Internal Medicine; ATTEND Internal Medicine
PROC: 0Y6M0ZB Detachment at Right Foot, Partial 2nd Ray, Open Approach (ICD-10-PCS; principal; 2018-09-09 08:30)
PROC: 02HV33Z Insertion of Infusion Device into Superior Vena Cava, Percutaneous Approach (ICD-10-PCS; 2018-09-12)
DX: A41.9 Sepsis, unspecified organism (principal); E11.52 Type 2 diabetes mellitus with diabetic peripheral angiopathy with gangrene; E87.1 Hypo-osmolality and hyponatremia; E87.2 Acidosis; J98.11 Atelectasis; L03.115 Cellulitis of right lower limb; L02.611 Cutaneous abscess of right foot; M87.9 Osteonecrosis, unspecified; E11.49 Type 2 diabetes mellitus with other diabetic neurological complication; D64.9 Anemia, unspecified; E11.621 Type 2 diabetes mellitus with foot ulcer; E11.628 Type 2 diabetes mellitus with other skin complications; E11.65 Type 2 diabetes mellitus with hyperglycemia; T38.3X6A Underdosing of insulin and oral hypoglycemic [antidiabetic] drugs, initial encounter; E86.0 Dehydration; F17.210 Nicotine dependence, cigarettes, uncomplicated; F20.9 Schizophrenia, unspecified; F32.9 Major depressive disorder, single episode, unspecified; F90.9 Attention-deficit hyperactivity disorder, unspecified type; G40.909 Epilepsy, unspecified, not intractable, without status epilepticus; G47.30 Sleep apnea, unspecified; I10 Essential (primary) hypertension; J20.9 Acute bronchitis, unspecified; J45.909 Unspecified asthma, uncomplicated; K21.9 Gastro-esophageal reflux disease without esophagitis; K58.9 Irritable bowel syndrome, unspecified; L97.519 Non-pressure chronic ulcer of other part of right foot with unspecified severity; M41.9 Scoliosis, unspecified; R65.20 Severe sepsis without septic shock; Z59.0 Homelessness; Z79.4 Long term (current) use of insulin; Z79.899 Other long term (current) drug therapy; M19.90 Unspecified osteoarthritis, unspecified site; Z88.0 Allergy status to penicillin; Z86.010 Personal history of colon polyps; Z88.8 Allergy status to other drugs, medicaments and biological substances; M48.00 Spinal stenosis, site unspecified; G89.29 Other chronic pain
CPT/HCPCS: 36415; 36573; 71046; 80048; 80053; 80202; 81001; 83036; 83605; 84484; 85025; 85027; 85610; 85730; 87040; 87070; 87075; 87086; 87205; 87502; 93005; 94640; 94760; 96361; 96365; 96366; 96367; 99285